=== PATIENT | female | born 1940 | race Caucasian/White ===

== ENCOUNTER 2024-05-10 08:19 | Outpatient (AMB) | payer MEDICARE, MEDICAID, SELFPAY ==
--- OUTSIDE RECORDS SUMMARY | 2024-05-10 08:29 | XMS_ITS | Encounter Summary ---
Author Organization [facility] Address [address] [place] [address] Care Team Providers Care Fixed Wing Aircraft Flight Engineer Name Role Phone Vale Walls Primary Care Provider [phone] Reason for Referral * Consultation (Routine) - Authorized Specialty Diagnoses / Procedures Referred By Contac t Referred To Contact Orthopaedic Surgery Diagnoses Radiculopathy of lumbar region Holli Fenton PA [address] [place] [address] Phone: tel: fax: Piero Hilton MD [address] [place] [phone] Phone: tel: fax: Referral ID Status Reason Start Date Expiration Date V isits Requested Visits Authorized [id number] Authorized 04/12/2024 10/12/2025 6 6 Encounter Details Date Type Department Care Team (Late st Contact Info) Description 04/12/2024 Orders Only [facility] [address] [place] [phone] Holli Fenton PA [address] [place] [phone] Radiculopathy of lumbar region (Primary Dx) Social History Tobacco Use Types Packs/Day Years Used Date Smoking Tobacco: Never Smokeless Tobacco: Never Alcohol Use Standard Drinks/Week Comments No 0 (1 standard drink = 0.6 oz pur e alcohol) Comments No Sex and Gender Information Value Date Recorded Sex Assigned at Female 03/09/2024 12:22 PM EST Legal Sex Female 9:48 AM EDT Gender Identity Not on file Sexual Orientation Not on file documented as of this encounter Progress Notes * GONZÁLEZ Jaramillo - 04/12/2024 4:21 PM EST Called patient to let her know that Dr. Hilton agreed to move forward with a caudal epidural steroid injection. She did not answer and was unable to leave voicemail as inbox was full. Did place order tomove forward with the injection. documented in this encounter Plan of Treatment Upcoming Encounters Date Type Department Care Team ([facility] st Contact Info) Description 05/17/2024 11:00 AM EST Office Visit [facility] [address] [place] [phone] Nurse Executive: Marcia Orlando MD [address] [place] [phone] Yesica Mi PA [address] [place] [phone] 07/11/2024 3:20 PM EDT Follow-Up [facility] A [address] [place] [phone] Piero Hilton MD [address] [place] [phone] Scheduled Referrals Name Type Priority Associated Diagnoses Order Schedule Ambulatory referral to Pain Management Outpatient Referral Routine Radiculopathy of lumbar region Expected: 04/12/2024, Expires: 10/10/2024 documented as of this encounter Visit Diagnoses Diagnosis Radiculopathy of lumbar region- Primary documented in this encounter Care Teams Fixed Wing Aircraft Flight Engineer Relationship Specialty Start Date End Date Vale Walls [address] [place] [phone] PCP - General Nurse Practitioner 03/08/24 documented as of this encounter
--- OUTSIDE RECORDS SUMMARY | 2024-05-10 08:29 | XMS_ITS | Encounter Summary ---
Author Organization [facility] Address [address] [place] [address] Care Team Providers Care Ad Clerk Name Role Phone Vale Walls Primary Care Provider [phone] Encounter Details Date Type Department Care Team (Latest Contact Info) Description 04/22/2024 8:07 AM EST - 04/22/2024 11:59 PM [facility] Hospital Encounter [facility] [address] [place] [address] Piero Hilton MD [address] [place] [address] Pain Discharge Disposition: Home or Self Care () Social History Tobacco Use Types Packs/Day Years [...] on file documented as of this encounter Medications at Time of Discharge acetaminophen (TYLENOL) 500 mg tablet Take 500 mg by mouth every 6 hours as needed for pain. losartan (COZAAR) 50 mg tablet Take 50 mg by mouth once a day. naproxen (NAPROSYN) 500 mg tablet Take 500 mg by mouth 2 times a day with meals. QUEtiapine (SEROquel) 50 mg tablet Take 50 mg by mouth nightly. verapamil (CALAN) 80 mg tablet Take 80 mg by mouth daily. 11 07/07/2017 oxyCODONE (OXY-IR) 5 mg capsule Take 1 capsule (5 mg total) by mouth every 8 hours as needed for pain for up to 5 days. Max Daily Amount: 15 mg 15 capsule 04/19/2024 04/24/2024 documented as of this encounter Plan of Treatment Upcoming Encounters Date Type Department Care Team (Late st Contact Info) Description 05/17/2024 11:00 AM EST Office Visit [facility] [address] [place] [address] [phone] Box Loader: Marcia Orlando MD [address] [place] [address] [phone] Yesica Mi PA [address] [place] [address] [phone] 07/11/2024 3:20 PM EDT Follow-Up [facility] A [address] [place] [phone] Piero Hilton MD [address] [place] [address] [phone] documented as of this encounter Procedures * Due to [place] [employer] law, this organization might not be sharing negative HIV tests. Procedure Name Priority Date/Time Associated Diagnosis Comments FL C-ARM INJECTION NON-REPORTABLE Routine 04/22/2024 12:19 PM EST Pain documented in this encounter Results * Due to [place] [employer] law, this organization might not be sharing negative HIV tests. * [place] C-Arm Injection Spine NONREPORTABLE (04/22/2024 12:19 PM EST) Narrative IMAGING - 04/22/2024 12:19 PM EST This procedure does not contain a result. Please see the surgeon's note for official report. us Piero Hilton MD IMG FLUOROSCOPY PROCEDURES Final Result IMAGING documented in this encounter Visit Diagnoses Diagnosis Pain Generalized pain documented in this encounter Care Teams Ad Clerk Relationship Specialty Start Date End Date Vale Walls [address] [place] [address] PCP - General Nurse Practitioner 03/08/24 documented as of this encounter
--- OUTSIDE RECORDS SUMMARY | 2024-05-10 08:29 | XMS_ITS | Encounter Summary ---
Author Organization [facility] Address [address] [place] [address] Care Team Providers Care In Store Demonstrator Name Role Phone Vale Walls Primary Care Provider Reason for Visit * Reason Comments Injections * Consultation (Routine) - Authorized Specialty Diagnoses / Procedures Referred By Contdavid t Referred To Contact Orthopaedic Surgery Diagnoses Radiculopathy of lumbar region Holli Fenton PA [address] [place] [phone] Phone: tel: fax: Piero Hilton MD [address] [place] [phone] Phone: tel: fax: Referral ID Status Reason Start Date Expiration Date V isits Requested Visits Authorized [id number] Authorized 04/12/2024 10/12/2025 6 6 Encounter Details Date Type Department Care Team (Latest Contact Info) Description 04/22/2024 8:07 AM EST - 04/22/2024 11:59 PM [facility] Hospital Encounter [facility] [address] [place] [phone] Piero Hilton MD [address] [place] [phone] Radiculopathy of lumbar region (Primary Dx) Discharge Disposition: Home or Self Care (01) Social History Tobacco Use Types Packs/Day Years [...] on file documented as of this encounter Last Filed Vital Signs Vital Sign Reading Time Taken Comments Blood Pressure 136/83 04/22/2024 9:00 AM EST Pulse 78 04/22/2024 9:00 AM EST Temperature 36.4 ??C (97.5 ??F) 04/22/2024 8:32 AM ES T Respiratory Rate - - Oxygen Saturation 97% 04/22/2024 9:00 AM EST Inhaled Oxygen Concentration - - Weight - - Height - - Body Mass Index - - documented in this encounter Discharge Instructions * Patient Instructions* Anahi Hinojosa LPN - 04/22/2024 8:16 AM EST Today's procedure is Epidural Steroid Injection Though this procedure is generally safe and complications are rare, we do ask you to look for any of the following: Swelling, persistent redness and bleeding or discharge from the site of injection. Fever and chills. New onset of severe back and/or neck pain. New onset of upper or lower extremity numbness and/or weakness lasting longer than 24 hours. Difficulty controlling bowel and/or bladder function after the injection. If you experience any of the above please contact our staff at the number provided below during business hours. After 4:00 PM, weekends, and holidays, please go to your local Emergency Room and show them this instruction sheet. After your injection: No driving or operating heavy equipment for 24 hours after the injection. Rest for the remainder of the day (unless otherwise specified). Remove band aid(s) after 24 hours, they do not need to be replaced. No shower, bath, Jacuzzi, or pool for 24 hours. Use ice for discomfort at the injection site(s). (20 minutes every 3 hours as needed) You may experience increasing pain after injection, maybe even days after. This is a normal experience. When applying ice/heat pack ALWAYS use a cloth barrier between your skin and the ice/heat pack If a steroid was used it will take 2-14 days or a bit longer to take full effect. You may experience hot flashes or facial flushing. This is not an allergic reaction. If you are diabetic and a steroid was used expect your blood sugar to elevate for up to 2 weeks. Contact the doctor that manages your diabetes for any further instruction if needed. Dr. Hilton During Business Hours 8am-4pm Scheduling concerns - [phone] Clinical concerns - [phone] After normal business hours - If you feel that you need to be evaluated for clinical symptoms, go to nearest Urgent Care or Emergency Room. documented in this encounter Medications at Time of Discharge [...] 04/19/2024 04/24/2024 documented as of this encounter Progress Notes * Piero Hilton MD - 04/22/2024 11:07 AM ESTAssociated Order(s): Epidural Spine Inj Post-Procedure Diagnose(s): Radiculopathy of lumbar region Lumbar Epidural Steroid Injection Epidural Spine Inj Indication(s): Lumbar Radiculopathy Date/Time: 04/22/2024 8:30 AM Performed by: Piero Hilton MD Authorized by: Piero Hilton MD Consent: Patient identity confirmed: Name and with patient, Name and MRN on the patient's armband and Verbally Verbal consent obtained: Yes Written consent obtained: Yes Risk and benefits discussed: Yes Written informed consent was obtained from the patient. Patient states understanding of procedure being performed: Yes Patient's understanding of procedure matches consent: Yes [facility] Protocol: Procedure consent matches procedure scheduled: Yes All relevant documents/tests are correctly identified, labeled, and matched to patient: Yes Relevant tests/ Imaging studies available/reviewed: Yes Correct site marked: Yes Required blood products, implants, devices and special equipment available: Yes Immediately prior to the procedure a time out was called: Yes An attending physician was present for the procedure OR the procedure was performed by an Advanced Practice Provider: Yes The patient was admitted as an outpatient to the ambulatory injection suite at [facility]. Vital signs were monitored before and after the procedure. Patient laid on the fluoroscopy table in the prone position. An attending physician was present for the procedure OR the procedure was performed by an Advanced Practice Provider: Yes Procedure Details: Guidance: fluoroscopy Injection Medications: 5 mL lidocaine PF 1% (10 mg/mL); 80 mg methylPREDNISolone acetate 80 mg/mL; 1 mL iohexoL 300 mg iodine/mL; 1 mL 0.9% NaCl 0.9%; 5 mL lidocaine 2% (20 mg/mL) Patient ID Patient Name: Carlene Rose : 1940 DOS: 04/22/24 Assessment Lumbar Radiculopathy Surgeon Attending Surgeon: Piero Hilton MD Procedures NAME OF PROCEDURE: Caudal Epidural Steroid Injection under Fluoroscopy, with passage of radiopaque epidural catheter. PRE-PROCEDURE DIAGNOSES: Low Back Pain POST-PROCEDURE DIAGNOSES: Same as above INDICATION FOR PROCEDURE: Same as above INFORMED CONSTENT: After reviewing the procedure with the patient, informed consent to proceed withthe injection was obtained. A procedural permit was also signed. DESCRIPTION OF PROCEDURE: In the prone position, fluoroscopy was used to identify the approximate area of the sacral hiatus. This was also determined by physical examination and palpation of the sacral cornu, bilaterally. The area surrounding the sacral hiatus was prepped with Chlorhexidine solution and draped with a sterile drape (prep and drape materials from the epidural kit). Sterile technique was used throughout. The skin and subcutaneous tissues overlying the sacral hiatus were infiltrated with 1% lidocaine. A 17-gauge Tuohy needle was advanced through the sacral hiatus into the caudal spinal canal. Placement of the epidural needle in the spinal canal was confirmed with AP and lateral fluoroscopic images. A radiopaque epidural catheter (TheraCath, Arrow) was advanced through the epidural needle and, with intermittent fluoroscopic imaging, was brought to the L5/S1 level to the midline. Omnipaque 300 X 1 ml was injected, resulting in distribution of contrast in the epidural space from S1 to L5. 1cc Methylprednisolone, 80 mg, 2 cc 2% lidocaine, (total volume 3 ml.) were injected through the epidural catheter. The injected local anesthetic and steroid resulted in dispersion of the previously injected contrast. The procedure was well tolerated, and there were no apparent complications. The patient had moderate relief of pain from the injected local anesthetic. Dr. Hilton was present for, and participated in, the entire procedure. DISPOSITION: Patient was discharged home instable condition. The patient tolerated the procedure well with no immediate complications. Dressinx4 sterile gauze Post-procedure Details: The patient was observed in the ambulatory surgery department. Instructions: post-procedure instructions were reviewed The patient discharged from clinic in stable condition. Carlene Rose : 1940 CSN: [id number] documented in this encounter Plan of Treatment Upcoming Encounters Date Type Department Care Team (Late st Contact Info) Description 05/17/2024 11:00 AM EST Office Visit [facility] [address] [place] [phone] Build Engineer: Marcia Orlando MD [address] [place] [phone] Yesica Mi PA [address] [place] [phone] 07/11/2024 3:20 PM EDT Follow-Up [facility] A [address] [place] [address] Piero Hilton MD [address] [place] [phone] documented as of this encounter Procedures * Due to [place] state law, this organization might not be sharing negative HIV tests. Procedure Name Priority Date/Time Associated Diagnosis Comments [place] NJX DX/THER SBST INTRLMNR LMBR/SAC W/IMG GDN Routine 04/22/2024 8:30 AM EST Radiculopathy of lumbar region documented in this encounter Results * Due to [place] state law, this organization might not be sharing negative HIV tests. * [place] NJX DX/THER SBST INTRLMNR LMBR/SAC W/IMG GDN (04/22/2024 8:30 AM EST) Narrative Piero Hilton MD - 04/22/2024 8:30 AM EST Piero Hilton MD ? 04/22/2024 11:12 AM Lumbar Epidural Steroid Injection Epidural Spine Inj ? Indication(s): Lumbar Radiculopathy ? Date/Time: 04/22/2024 8:30 AM ? Performed by: Piero Hilton MD ? Authorized by: Piero Hilton MD Consent: ? Patient identity confirmed: Name and with patient, Name and MRN on the patient's armband and Verbally ? Verbal consent obtained: Yes ? Written consent obtained: Yes ? Risk and benefits discussed: Yes ? Written informed consent was obtained from the patient. ? Patient states understanding of procedure being performed: Yes ? Patient's understanding of procedure matches consent: Yes [facility] Protocol: ? Procedure consent matches procedure scheduled: Yes ? All relevant documents/tests are correctly identified, labeled, and matched to patient: Yes ? Relevant tests/ Imaging studies available/reviewed: Yes ? Correct site marked: Yes ? Required blood products, implants, devices and special equipment available: Yes ? Immediately prior to the procedure a time out was called: Yes An attending physician was present for the procedure OR the procedure was performed by an Advanced Practice Provider: Yes ? The patient was admitted as an outpatient to the ambulatory injection suite at [facility]. ? Vital signs were monitored before and after the procedure. ? Patient laid on the fluoroscopy table in the prone position. An attending physician was present for the procedure OR the procedure was performed by an Advanced Practice Provider: Yes Procedure Details: ? Guidance: fluoroscopy Injection ?Medications: 5 mL lidocaine PF 1% (10 mg/mL); 80 mg methylPREDNISolone acetate 80 mg/mL; 1 mL iohexoL 300 mg iodine/mL; 1 mL 0.9% NaCl 0.9%; 5 mL lidocaine 2% (20 mg/mL) ? Patient ID Patient Name: Carlene Rose : 1940 DOS: 04/22/24 Assessment Lumbar Radiculopathy Surgeon Attending Surgeon: Piero Hilton MD Procedures NAME OF PROCEDURE: Caudal Epidural Steroid Injection under Fluoroscopy, with passage of radiopaque epidural catheter. PRE-PROCEDURE DIAGNOSES: ??Low Back Pain POST-PROCEDURE DIAGNOSES: Same as above INDICATION FOR PROCEDURE: Same as above INFORMED CONSTENT: After reviewing the procedure with the patient, informed consent to proceed with the injection was obtained. ??A procedural permit was also signed. DESCRIPTION OF PROCEDURE: ??In the prone position, fluoroscopy was used to identify the approximate area of the sacral hiatus. ??This was also determined by physical examination and palpation of the sacral cornu, bilaterally. ??The area surrounding the sacral hiatus was prepped with Chlorhexidine solution and draped with a sterile drape (prep and drape materials from the epidural kit). ??Sterile technique was used throughout. The skin and subcutaneous tissues overlying the sacral hiatus were infiltrated with 1% lidocaine. ??A 17-gauge Tuohy needle was advanced through the sacral hiatus into the caudal spinal canal. ??Placement of the epidural needle in the spinal canal was confirmed with AP and lateral fluoroscopic images. ??A radiopaque epidural catheter (NoeaCath, Arrow) was advanced through the epidural needle and, with intermittent fluoroscopic imaging, was brought to the L5/S1 level to the midline. Omnipaque 300 X 1 ml was injected, resulting in distribution of contrast in the epidural space from S1 to L5. ??1cc Methylprednisolone, 80 mg, 2 cc 2% ??lidocaine, ??(total volume 3 ml.) were injected through the epidural catheter. The injected local anesthetic and steroid resulted in dispersion of the previously injected contrast. ?? The procedure was well tolerated, and there were no apparent complications. The patient had moderate relief of pain from the injected local anesthetic. Dr. Hilton was present for, and participated in, the entire procedure. DISPOSITION: ??Patient was discharged home instable condition. ? The patient tolerated the procedure well with no immediate complications. ? Dressinx4 sterile gauze Post-procedure Details: ? The patient was observed in the ambulatory surgery department. ? Instructions: post-procedure instructions were reviewed ? The patient discharged from clinic in stable condition. us Piero Hilton MD IN CLINIC/BEDSIDE ORDERABLES Fin al Result documented in this encounter Visit Diagnoses Diagnosis Radiculopathy of lumbar region- Primary documented in this encounter Administered Medications Inactive Administered Medications - up to 3 most recent administrations Medication Order MAR Action Action Date Dose Rate Site 0.9% NaCl injection 1 mL 1 mL, One-time injection, Starting on Mon04/22/24 at 0830, 1 dose, Until Mon04/22/24 at 0830Indications:Radiculopathy of lumbar region Given 04/22/2024 8:30 AM EST 1 mL iohexoL (OMNIPAQUE) 300 mg iodine/mL injection 1 mL 1 mL, One-time injection, Starting on Mon04/22/24 at 0830, 1 dose, Until Mon04/22/24 at 0830Indications:Radiculopathy of lumbar region Given 04/22/2024 8:30 AM EST 1 mL lidocaine (XYLOCAINE) 2% (20 mg/mL) injection 5 mL 5 mL, injection, One-time injection, Starting on Mon04/22/24 at 0830, 1 dose, Until Mon04/22/24 at 0830Indications:Radiculopathy of lumbar region Given 04/22/2024 8:30 AM EST 5 mL lidocaine PF (XYLOCAINE) 1% (10 mg/mL) injection 5 mL 5 mL, injection, One-time injection, Starting on Mon04/22/24 at 0830, 1 dose, Until Mon04/22/24 at 0830Indications:Radiculopathy of lumbar region Given 04/22/2024 8:30 AM EST 5 mL methylPREDNISolone acetate (DEPO-Medrol) injection 80 mg 80 mg, intra-articular, One-time injection, Starting on Mon04/22/24 at 0830, 1 dose, Until Mon04/22/24 at 0830Indications:Radiculopathy of lumbar region Given 04/22/2024 8:30 AM EST 80 mg documented in this encounter Care Teams In Store Demonstrator Relationship Specialty Start Date End Date Luis Ejustino Vale [address] [place] [address] PCP - General Nurse Practitioner 03/08/24 documented as of this encounter
--- OUTSIDE RECORDS SUMMARY | 2024-05-10 08:29 | XMS_ITS | Encounter Summary ---
Author Organization [facility] Address [address] [place] [address] Care Team Providers Care Kiln Pusher Name Role Phone Vale Walls Primary Care Provider [phone] Reason for Visit * Reason Comments Leg Pain Back Pain Abdominal Pain * Auth/Cert (Routine) Specialty Diagnoses / Procedures Referred By Contac t Referred To Contact Diagnoses Back pain at L4-L5 level Referral ID Status Reason Start Date Expiration Date Visits Re quested Visits Authorized [id number] Encounter Details Date Type Department Care Team (Late st Contact Info) Description 04/18/2024 5:23 PM EST - 04/19/2024 3:15 PM EST Emergency [facility] Emergency Department [address] [place] [id number] Fermin Hawkins MD [address] [place] [address] [place] [id number] Elvis Tran MD [address] [place] [id number] Patsy Merchant MD [address] [place] [id number] Back pain at L4-L5 level (Primary Dx); Urinary tract infection without hematuria, site unspecified; Acute left-sided low back pain with left-sided sciatica; Impaired mobility Discharge Disposition: Home with Services (06) Social History Tobacco Use Types Packs/Day Years [...] Sign Reading Time Taken Comments Blood Pressure 136/59 04/19/2024 11:25 AM EST Pulse 60 04/19/2024 11:24 AM EST Temperature 36.7 ??C (98 ??F) 04/19/2024 11:24 AM EST Respiratory Rate 18 04/19/2024 11:24 AM EST Oxygen Saturation 98% 04/19/2024 7:48 AM EST Inhaled Oxygen Concentration - - Weight - - Height - - Body Mass Index - - documented in this encounter Discharge Summaries * Patsy Merchant MD - 04/19/2024 2:31 PM EST Images from the original note were not included. DISCHARGE SUMMARY [facility] DISCHARGE INFORMATION: Date and Time of Admission: 04/19/2024 12:08 AM Date of Discharge: 04/19/24 DISCHARGE DIAGNOSIS: Problem List Active Problems * (Principal) Back pain at L4-L5 level Back pain with radiculopathy Hypertension Impaired mobility Insomnia Mood disorder (HCC) Neuroforaminal stenosis of lumbar spine Resolved Problems RESOLVED: Abnormal urinalysis ATTENDING PHYSICIAN ON DISCHARGE: Attending Provider: Elvis Tran MD [phone] FOLLOW-UPS AND SCHEDULED APPOINTMENTS: Future Appointments Date Time Provider Department Center 04/22/2024 8:30 AM [facility] 04/22/2024 8:30 AM Piero Hilton MD [facility] [place] [place] 05/17/2024 11:00 AM [facility] DANIELA AR CONTACT INFORMATION FOR FOLLOW-UP Care [facility] ([facility]) Specialty: Home Health Services [address] [place] [address] Next Steps: Follow up Vale Walls Specialty: Nurse Practitioner Relationship: PCP - General [facility] [address] [facility] [address] Next Steps: Call in 3 day(s) Instructions: Follow-up after discharge PENDING LABS: . None DISCHARGE MEDICATIONS: Discharge Medication list: Discharge Medications Modified Medications Sig Disp Refill oxyCODONE 5 mg capsule Commonly known as: OXY-IR What changed: when to take this Take 1 capsule (5 mg total) by mouth every 8 hours as needed for pain for up to 5 days. Max Daily Amount: 15 mg 15 capsule 0 Medications To Continue Sig Disp Refill acetaminophen 500 mg tablet Commonly known as: TYLENOL Take 500 mg by mouth every 6 hours as needed for pain. 0 losartan 50 mg tablet Commonly known as: COZAAR Take 50 mg by mouth once a day. 0 naproxen 500 mg tablet Commonly known as: NAPROSYN Take 500 mg by mouth 2 times a day with meals. 0 QUEtiapine 50 mg tablet Commonly known as: SEROquel Take 50 mg by mouth nightly. 0 verapamiL 80 mg tablet Commonly known as: CALAN Take 80 mg by mouth daily. 11 ALLERGIES: Patient has no known allergies. IMMUNIZATION HISTORY: Most Recent Immunizations Administered Date(s) Administered COVID-19, Moderna, mRNA, LNP-S, Bivalent Booster, PF 01/10/2022 Covid-19 Monovalent Vaccine, Moderna, mRNA, PF 02/15/2021 Covid-19, Moderna, mRNA, Vaccine, PF, 50 mcg/0.5 mL (for age 12 y and up) 01/28/2024 Covid-19, Pfizer, mRNA, Tonny-sucrose Vaccine, PF, 30 mcg/0.3 mL (for age 12 y and up) 12/24/2022 PRESENTATION INFORMATION: HISTORY OF PRESENT ILLNESS: CHIEF COMPLAINT: acute on chronic back pain HISTORY OF PRESENT ILLNESS: History obtained from: Patient and Medical Record Carlene Rose is a 83 y.o. female with past medical history significant for history of mood disorder with mixed anxiety and depression, prior history of seizures not on medication, stage II CKD, vitamin B12 deficiency, chronic low back pain with prior surgery for herniated disc, vitamin D deficiency, insomnia, and hypertension who presents with acute on chronic worsening of lower back pain associate with left lower extremity sciatica symptoms and inability to walk secondary to pain. Patient reports that she has had chronic back pain for which she is followed by spine surgery outpatient. She notes that it worsened in the past 24 to 48 hours prompting her to come in for evaluation. The pain is sharp and extends from her hip all the way down to her leg. It feels as though she is being constantly stabbed with knives. She notes that it limits her ability to walk. She reports chronic headache and bilateral lower extremity foot numbness. Patient denies any bowel/bladder incontinence/saddle anesthesia. Otherwise denies fever/chills, decreased appetite, changes in vision/hearing, chest pain, shortnessof breath, abdominal pain, nausea/vomiting, constipation/diarrhea, hematuria or melena, dysuria. Of note patient is followed by [facility] of orthopedic surgery in the outpatient setting. She had recent MRI L-spine(04/03/2024) notable for diffuse degenerative changes and neuroforaminal stenosis for which she is scheduled to undergo lumbar epidural steroid injection on 04/22/2024. Patient was evaluated by orthospine who recommended weightbearing as tolerated and upright lumbar spine x-ray. In the ED, patient has been hemodynamically stable. BMP notable for bicarb 19 otherwise unremarkable. LFTs notable for alkaline phosphatase 181 otherwise unremarkable. CBC unremarkable. UA shows 10 white blood cells per high-powered field and rare bacteria. Patient reports no dysuria. CT abdomen pelvis shows no acute abnormality. CT reconstruction of lumbar spine shows no acute abnormality. In the ED patient received IV ceftriaxone 1 g x 1, gabapentin 100 mg x 1, Toradol 15 mg x 1, oxycodone IR 5 mg x 1. Admitted to medicine for further management and evaluation. PAST MEDICAL HISTORY: Past Medical History: Diagnosis Date Hypertension PAST SURGICAL HISTORY: Past Surgical History: Procedure Laterality Date CO EXCIS CERV DISK,ONE LEVEL N/A History of Laminectomy With Disc Removal CO TOTAL ABDOM HYSTERECTOMY N/A History of Hysterectomy PAST FAMILY HISTORY: No family history on file. PAST SOCIAL HISTORY: Social History Socioeconomic History Marital status: Spouse name: Not on file Number of children: Not on file Years of education: Not on file Highest education level: Not on file Occupational History Not on file Tobacco Use Smoking status: Never Smokeless tobacco: Never Vaping Use Vaping status: Never Used Substance and Sexual Activity Alcohol use: No Drug use: No Sexual activity: Not on file Other Topics Concern Not on file Social History Narrative Not on file HOSPITAL COURSE: Patient presented with acute on chronic lower back pain, unable to ambulate. Patient had x-ray and CT of lumbar spine, CT A/P, no acute findings. Patient was seen by orthospine, no urgent invention recommended, patient has epidural steroid injection scheduled on 04/22. Patient was provided with low-dose oxycodone as needed for pain control. Patient was seen by PT, recommend to DC home with walker. Patient is hemodynamic stable to discharge home. Back pain at L4-L5 level 83-year-old female with a history of chronic low back pain and prior surgery for a herniated disc. She presents with an acute exacerbation of her chronic back pain, characterized by sharp pain radiating from the left hip down to the leg, consistent with sciatica. Recent MRI of the lumbar spine showed diffuse degenerative changes and neuroforaminal stenosis, for which she is scheduled to receive alumbar epidural steroid injection. Examination reveals tenderness in the left hip and pain with passive leg raising. CT of the lumbar spine shows no acute abnormalities. Evaluated in the ED by orthospine who are not concerned for cauda equina syndrome. They recommended outpatient lumbar corticosteroid injection on April 22. - Orthospine consulted - Given Oxy IR 2.5 or 5 mg every 6 hours as needed pain - Tylenol 650 mg scheduled - Consider initiation of gabapentin - Follow-up with orthospine outpatient - Lumbar spine x-ray upright done. Mood disorder (HCC) Prior history of mood disorder complicated by insomnia managed on Seroquel 50 mg nightly. - Continue Seroquel 50 mg nightly Neuroforaminal stenosis of lumbar spine -See back pain at L4/L5. Hypertension Patient with history of hypertension managed on losartan 50 mg daily and verapamil 80 mg daily. Blood pressure stable - Continue home verapamil 80 mg daily and losartan 50 mg daily. Impaired mobility Patient presents with impaired mobility secondary to back pain. - Appreciated PT recs cleared for D/C home with family assist. Rec' RW for discharge. Insomnia -See mood disorder section Abnormal urinalysis Patient's UA shows 10 white blood cells per high-powered field, 1+ leukocyte esterase, rare bacteria. Patient denies any dysuria. No concern for UTI at this time. CT abdomen pelvis showed no evidenceof cystitis or pyelonephritis. Patient received IV ceftriaxone 1 g in the ED x1. - Discontinued antibiotics at admission - Outpatient follow-up with PCP if symptomatic. DISCHARGE DAY INFORMATION: DISCHARGE PHYSICAL EXAM: Vital signs: Blood pressure 136/59, pulse 60, temperature 36.7 ??C (98 ??F), temperature source Oral, resp. rate 18, SpO2 98%. General appearance: In no acute distress, alert and awake, cooperative HEENT: Normocephalic, atraumatic, Pupils are equal, round and react to light, Nonicteric, Hearing grossly normal, Mucous membranes moist Neck: Supple and Full Range of Motion Back: No tenderness to palpation, normal inspection Lungs: No respiratory distress, no stridor, clear breath sounds bilaterally, no wheeze, rales or rhonchi Heart: S1, S2, regular, no murmur, no gallops. no chest wall tenderness Abdomen: Soft, active bowel sounds, non-tender, non-distended, no rebound or guarding Extremities: Normal range of motion, no leg edema Skin: No rash or ulcers Neurologic: Alert and oriented x 3, CN II - XII grossly intact, no facial droop, Motor 5/5, Sensation grossly normal. LAB AND RADIOLOGY: LABS: Pertinent labs include Recent Results (from the past 24 hours) Urinalysis W/Reflex to Microscopic & Culture Collection Time: 04/18/24 6:43 PM Specimen: Clean Catch; Urine Result Value Ref Range Color, Urine Yellow Colorless, Light Yellow, Yellow, Dark Yellow Clarity, Urine Slightly Cloudy (A) Clear Specific [place], Urine 1.025 1.005 - 1.030 pH, Urine 5.0 4.6 - 8.0 Protein, Urine Negative Negative Glucose, Urine Negative Negative Ketones, Urine Negative Negative Bilirubin, Urine Negative Negative Blood, Urine Negative Negative Nitrite, Urine Negative Negative Urobilinogen, Urine Positive (A) Normal Leukocyte Esterase, Urine 1+ (A) Negative WBC, Urine 10 (H) 0 - 2 /HPF RBC, Urine 2 0 - 2 /HPF Hyaline Casts, Urine 2 0 - 2 /LPF Squamous Epithelial Cells, Urine 4 /HPF Bacteria, Urine Rare (A) None /HPF /HPF Mucus, Urine Rare /LPF Soliman Top, Urine Collection Time: 04/18/24 6:43 PM Specimen: Clean Catch; Urine Result Value Ref Range Extra Tube Hold for add-ons. IMAGING: Pertinent Imaging results include X-Ray Lumbar Spine 2 or 3 Views Result Date: 04/19/2024 The bones are diffusely demineralized. Unchanged dextroconvex scoliosis of the lumbar spine and advanced multilevel degenerative changes as characterized on prior MRI. Unchanged degenerative grade 1 anterolisthesis at L4-L5. Chronic compression deformity of the L1 vertebral body. Unchanged subacutesacral insufficiency fractures. If this radiology report contains a blank impression section, it is an incomplete radiology report. Please contact the interpreting radiologist or applicable radiology division as soon as possible to obtain the completed interpretation. Workstation ID: [id number] CT Abd Pelvis W Contrast, CT Reconstruction of Lumbar Spine Result Date: 04/18/2024 No acute abnormality. If this radiology report contains a blank impression section, it is an incomplete radiology report. Please contact the interpreting radiologist or applicable radiology division as soon as possible to obtain the completed interpretation. Workstation ID: [id number] Up-to-date CT equipment and radiation dose reduction techniques were employed. CTDIvol: 14.7 mGy. DLP: 672 mGy-cm. The following accession numbers are related to this dose report [id number]: [id number] Up-to-date CT equipment and radiation dose reduction techniques were employed. CTDIvol: 14.7 mGy. DLP: 672 mGy-cm.The following accession numbers are related to this dose report [id number]: [id number] GLOBAL PLAN OF CARE CONSULTS: IP CONSULT TO IV THERAPY NURSE PROCEDURES: CONDITION: Good ADVANCED CARE PLANNING Code Status: Full Code Medical Decision Maker: patient I spent 50 minutes performing discharge day services (e.g. examination, discussion of hospital course, follow up care and planning) as appropriate I saw and evaluated the patient on the date of discharge. I have reviewed, updated, and verified this note's content Signature: Patsy Merchant MD Electronic Signature documented in this encounter Discharge Instructions * Discharge Instructions* Patsy Merchant MD - 04/18/2024 7:10 PM EST - Continue home medications same as before - Continue [id number] analgesics like Tylenol or ibuprofen, continue oxycodone as needed for pain control - Fall precaution. Please ambulate with walker as instructed by PT - Follow-up with your PCP in 3 to 5 days - Follow-up with the spine center for epidural steroid injection on 04/22 * Discharge Instr - Diet* Patsy Merchant MD - 04/19/2024 1:35 PM EST Regular Diet documented in this encounter Medications at Time [...] 04/19/2024 04/24/2024 documented as of this encounter H&P Notes * Elvis Tran MD - 04/19/2024 4:13 AM EST History and Physical CHIEF COMPLAINT: acute on chronic back pain HISTORY OF PRESENT ILLNESS: History obtained from: Patient and Medical Record Carlene Rose is a 83 y.o. female with past medical history significant for history of mood disorder with mixed anxiety and depression, prior history of seizures not on medication, stage II CKD, vitamin B12 deficiency, chronic low back pain with prior surgery for herniated disc, vitamin D deficiency, insomnia, and hypertension who presents with acute on chronic worsening of lower back pain associate with left lower extremity sciatica symptoms and inability to walk secondary to pain. Patient reports that she has had chronic back pain for which she is followed by spine surgery outpatient. She notes that it worsened in the past 24 to 48 hours prompting her to come in for evaluation. The pain is sharp and extends from her hip all the way down to her leg. It feels as though she is being constantly stabbed with knives. She notes that it limits her ability to walk. She reports chronic headache and bilateral lower extremity foot numbness. Patient denies any bowel/bladder incontinence/saddle anesthesia. Otherwise denies fever/chills, decreased appetite, changes in vision/hearing, chest pain, shortnessof breath, abdominal pain, nausea/vomiting, constipation/diarrhea, hematuria or melena, dysuria. Of note patient is followed by [facility] Jaram[facility] of orthopedic surgery in the outpatient setting. She had recent MRI L-spine(04/03/2024) notable for diffuse degenerative changes and neuroforaminal stenosis for which she is scheduled to undergo lumbar epidural steroid injection on 04/22/2024. Patient was evaluated by orthospine who recommended weightbearing as tolerated and upright lumbar spine x-ray. In the ED, patient has been hemodynamically stable. BMP notable for bicarb 19 otherwise unremarkable. LFTs notable for alkaline phosphatase 181 otherwise unremarkable. CBC unremarkable. UA shows 10 white blood cells per high-powered field and rare bacteria. Patient reports no dysuria. CT abdomen pelvis shows no acute abnormality. CT reconstruction of lumbar spine shows no acute abnormality. In the ED patient received IV ceftriaxone 1 g x 1, gabapentin 100 mg x 1, Toradol 15 mg x 1, oxycodone IR 5 mg x 1. Admitted to medicine for further management and evaluation. Subjective 10 point ROS negative unless indicated above Past Medical History: Hypertension Past Surgical History: CO EXCIS CERV DISK,ONE LEVEL; N/A CO TOTAL ABDOM HYSTERECTOMY; N/A Home Medications: acetaminophen (TYLENOL) 500 mg tablet, Take 500 mg by mouth every 6 hours as needed for pain. losartan (COZAAR) 50 mg tablet, Take 50 mg by mouth once a day. naproxen (NAPROSYN) 500 mg tablet, Take 500 mg by mouth 2 times a day with meals. oxyCODONE (OXY-IR) 5 mg capsule, Take 5 mg by mouth every 6 hours as needed for pain. QUEtiapine (SEROquel) 50 mg tablet, Take 50 mg by mouth nightly. verapamil (CALAN) 80 mg tablet, Take 80 mg by mouth daily. Allergies: No Known Allergies Social History: Tobacco Use Smoking status: Never Smokeless tobacco: Never Vaping Use Vaping status: Never Used Substance Use Topics Alcohol use: No Drug use: No Family History: History reviewed. No pertinent family history. Objective Temp: [36.2 ??C (97.2 ??F)] 36.2 ??C (97.2 ??F) Heart Rate: [77-90] 86 Resp: [17-20] 17 BP: (128-181)/(60-88) 147/68 SpO2: [96 %-100 %] 96 % . Active Lines Name Placement date Placement time Site Days Peripheral IV 04/18/24 Left Antecubital 04/18/241903 Antecubital less than 1 , Active Drains None , Active Airways None VENT SETTINGS (LAST 12 HOURS): Physical Exam Vitals reviewed. Constitutional: General: She is not in acute distress. Appearance: Normal appearance. She is not ill-appearing or diaphoretic. HENT: Head: Normocephalic and atraumatic. Nose: Nose normal. Mouth/Throat: Mouth: Mucous membranes are moist. Pharynx: Oropharynx is clear. No oropharyngeal exudate. Eyes: General: No scleral icterus. Extraocular Movements: Extraocular movements intact. Conjunctiva/sclera: Conjunctivae normal. Pupils: Pupils are equal, round, and reactive to light. Cardiovascular: Rate and Rhythm: Normal rate and regular rhythm. Pulses: Normal pulses. Heart sounds: Normal heart sounds. No murmur heard. No friction rub. No gallop. Pulmonary: Effort: Pulmonary effort is normal. No respiratory distress. Breath sounds: Normal breath sounds. No stridor. No wheezing, rhonchi or rales. Abdominal: General: Abdomen is flat. There is no distension. Palpations: Abdomen is soft. There is no mass. Tenderness: There is no abdominal tenderness. There is no guarding. Hernia: No hernia is present. Musculoskeletal: General: Tenderness (Left hip.) present. No swelling or deformity. Normal range of motion. Cervical back: Normal range of motion and neck supple. No tenderness. Right lower leg: No edema. Left lower leg: No edema. Comments: Pain with passive leg raising of left leg; not elicited by right leg raise. Lymphadenopathy: Cervical: No cervical adenopathy. Skin: General: Skin is warm and dry. Capillary Refill: Capillary refill takes less than 2 seconds. Findings: No rash. Neurological: General: No focal deficit present. Mental Status: She is alert and oriented to person, place, and time. Mental status is at baseline. Comments: Patient not lifting left leg secondary to pain. Psychiatric: Mood and Affect: Mood normal. Behavior: Behavior normal. Thought Content: Thought content normal. Result Review I have reviewed the patient's labs results from the last 24 hours. Recent Results (from the past 24 hours) CBC Auto Differential Collection Time: 04/18/24 12:18 PM Specimen: Venous, Peripheral; Blood Result Value Ref Range WBC 9.0 3.8 - 10.8 10*3/uL RBC 4.45 3.80 - 5.10 10*6/uL Hemoglobin 12.7 11.7 - 15.5 g/dL Hematocrit 38.4 35.0 - 45.0 % MCV 86.3 80.0 - 100.0 fL MCH 28.5 27.0 - 33.0 pg MCHC 33.1 32.0 - 36.0 g/dL RDW 14.0 11.0 - 15.0 % Platelets 219 140 - 400 10*3/uL MPV 8.9 7.5 - 12.5 fL Neutrophil % 69.1 % Immature Grans % 0.4 0.0 - 0.9 % Lymphocyte % 18.8 % Monocyte % 8.3 % Eosinophil % 2.8 % Basophil % 0.6 % Neutrophil # 6.21 1.50 - 7.80 10*3/uL Immature Grans # 0.04 (H) <=0.03 10*3/uL Lymphocyte # 1.70 0.85 - 3.90 10*3/uL Monocyte # 0.80 0.20 - 0.95 10*3/uL Eosinophil # 0.30 0.02 - 0.50 10*3/uL Basophil # 0.10 0.00 - 0.20 10*3/uL nRBC % 0.0 /100 WBCs nRBC # <0.01 <0.01 10*3/uL Comprehensive Metabolic Panel (If age > 70) Collection Time: 04/18/24 12:18 PM Specimen: Venous, Peripheral; Blood Result Value Ref Range NA 138 135 - 145 mmol/L K 4.2 3.5 - 5.3 mmol/L Cl 107 98 - 107 mmol/L CO2 19 (L) 22 - 32 mmol/L Anion Gap 12 5 - 15 Glucose 99 65 - 99 mg/dL Creatinine 0.89 0.50 - 1.20 mg/dL Calcium 9.3 8.6 - 10.5 mg/dL Total Protein 6.8 6.0 - 8.0 g/dL Albumin 3.8 3.5 - 5.2 g/dL Bilirubin, Total 0.5 0.2 - 1.2 mg/dL Alkaline Phosphatase 181 (H) 35 - 129 U/L AST 25 10 - 40 U/L ALT 9 (L) 10 - 40 U/L BUN 24 (H) 7 - 23 mg/dL eGFR 64 >=60 mL/min/1.73m2 Globulin, Total 3.0 2.1 - 4.2 g/dL A/G Ratio 1.3 (L) 1.5 - 3.0 Urinalysis W/Reflex to Microscopic & Culture Collection Time: 04/18/24 6:43 PM Specimen: Clean Catch; Urine Result Value Ref Range Color, Urine Yellow Colorless, Light Yellow, Yellow, Dark Yellow Clarity, Urine Slightly Cloudy (A) Clear Specific [place], Urine 1.025 1.005 - 1.030 pH, Urine 5.0 4.6 - 8.0 Protein, Urine Negative Negative Glucose, Urine Negative Negative Ketones, Urine Negative Negative Bilirubin, Urine Negative Negative Blood, Urine Negative Negative Nitrite, Urine Negative Negative Urobilinogen, Urine Positive (A) Normal Leukocyte Esterase, Urine 1+ (A) Negative WBC, Urine 10 (H) 0 - 2 /HPF RBC, Urine 2 0 - 2 /HPF Hyaline Casts, Urine 2 0 - 2 /LPF Squamous Epithelial Cells, Urine 4 /HPF Bacteria, Urine Rare (A) None /HPF /HPF Mucus, Urine Rare /LPF Soliman Top, Urine Collection Time: 04/18/24 6:43 PM Specimen: Clean Catch; Urine Result Value Ref Range Extra Tube Hold for add-ons. Imaging Results Radiology Review: I have personally reviewed the patient's imaging results. CT Abd Pelvis W Contrast, CT Reconstruction of Lumbar Spine Result Date: 04/18/2024 No acute abnormality. If this radiology report contains a blank impression section, it is an incomplete radiology report. Please contact the interpreting radiologist or applicable radiology division as soon as possible to obtain the completed interpretation. Workstation ID: [id number] Up-to-date CT equipment and radiation dose reduction techniques were employed. CTDIvol: 14.7 mGy. DLP: 672 mGy-cm. The following accession numbers are related to this dose report [id number]: [id number] Up-to-date CT equipment and radiation dose reduction techniques were employed. CTDIvol: 14.7 mGy. DLP: 672 mGy-cm.The following accession numbers are related to this dose report [id number]: [id number] ECG ECG: not available on admission Assessment & Plan Principal Problem: Back pain at L4-L5 level Active Problems: Hypertension Mood disorder (HCC) Neuroforaminal stenosis of lumbar spine Impaired mobility Insomnia Abnormal urinalysis Assessment & Plan Back pain at L4-L5 level 83-year-old female with a history of chronic low back pain and prior surgery for a herniated disc. She presents with an acute exacerbation of her chronic back pain, characterized by sharp pain radiating from the left hip down to the leg, consistent with sciatica. Recent MRI of the lumbar spine showed diffuse degenerative changes and neuroforaminal stenosis, for which she is scheduled to receive alumbar epidural steroid injection. Examination reveals tenderness in the left hip and pain with passive leg raising. CT of the lumbar spine shows no acute abnormalities. Evaluated in the ED by orthospine who are not concerned for cauda equina syndrome. They recommended outpatient lumbar corticosteroid injection on April 22. - Orthospine consulted - Oxy IR 2.5 or 5 mg every 6 hours as needed pain - IV Toradol 15 mg every 6 hours as needed pain - Tylenol 650 mg scheduled - Consider initiation of gabapentin - Follow-up with orthospine - Lumbar spine x-ray upright Mood disorder (HCC) Prior history of mood disorder complicated by insomnia managed on Seroquel 50 mg nightly. - Continue Seroquel 50 mg nightly Neuroforaminal stenosis of lumbar spine -See back pain at L4/L5. Hypertension Patient with history of hypertension managed on losartan 50 mg daily and verapamil 80 mg daily. - Continue home verapamil 80 mg daily and losartan 50 mg daily. Impaired mobility Patient presents with impaired mobility secondary to back pain. -PT consult prior to discharge Insomnia -See mood disorder section Abnormal urinalysis Patient's UA shows 10 white blood cells per high-powered field, 1+ leukocyte esterase, rare bacteria. Patient denies any dysuria. No concern for UTI at this time. CT abdomen pelvis showed no evidenceof cystitis or pyelonephritis. Patient received IV ceftriaxone 1 g in the ED. - Follow-up urine culture - Discontinue antibiotics GLOBAL PLAN OF CARE: FLUIDS AND NUTRITION FLUIDS: NUTRITION: Diet, Adult Full participation; Regular VTE PROPHYLAXIS Pharmacologic VTE Prophylaxis: subcutaneous lovenox 40mg daily Mechanical VTE/DVT Prophylaxis: SCDs ADV[facility]ARE PLANNING Code Status: Full Code Medical Decision Maker: Patient I have discussed the plan of care with: Patient. Med Reconciliation Status: Medication Reconciliation Status: COMPLETE: Medication reconciliation iscomplete in full using one or more reliable source(s). I have reviewed, updated, and verified this note's content. I spent a total of 60 minutes on the date of encounter, which included: ?? Preparing to see the patient (e.g., review of test results) ?? Obtaining and/or reviewing separately obtained history ?? Performing a medically appropriate exam and/or evaluation ?? Counseling and educating the patient/family/caregiver ?? Ordering medications, tests, procedures ?? Documenting clinical information in the health record Signature: Elvis Tran MD Electronic Signature documented in this encounter ED Notes * Fermin Hawkins MD - 04/18/2024 11:38 AM EST History HPI: Chief Complaint Patient presents with Leg Pain Back Pain Abdominal Pain HPI 83 female with history of chronic lower back pain, hypertension presents to the emergency department for evaluation of left lower back pain that radiates into her left lower extremity. Patient notes that she has had progressively worsening left lower extremity pain. However over the 1 week she has noted sharp, stabbing pain in her left groin that radiates down to her left foot. With intermittent n umbness/tingling in her left foot. Denies any acute trauma. No history of recent instrumentation. At home she takes Tylenol, ibuprofen, oxycodone for pain control however now is having difficulty with ambulation given amount of pain she is having therefore now presents to the emergency department further evaluation. She denies any fevers, chills, cough, congestion, chest pain, shortness of breath, nausea vomiting,diarrhea, dysuria, hematuria, urinary or bladder incontinence. No acute numbness or weakness. Patient History Past Medical History: Diagnosis Date Hypertension Past Surgical History: Procedure Laterality Date CO EXCIS CERV DISK,ONE LEVEL N/A History of Laminectomy With Disc Removal CO TOTAL ABDOM HYSTERECTOMY N/A History of Hysterectomy No family history on file. Social History Tobacco Use Smoking status: Never Smokeless tobacco: Never Vaping Use Vaping status: Never Used Substance Use Topics Alcohol use: No Drug use: No Vaping Questions Responses Vaping Use Never User Sexuality and Gender Identity Sexuality Legal Information Legal first name: Carlene Legal last name: Milton Legal sex: Female Gender Identity Patient's sex assigned at : Female Organ Inventory Organs the patient currently has: Organs present at or expected at to develop: Organs surgically enhanced or constructed: Organs hormonally enhanced or developed: breasts cervix ovaries uterus vagina penis prostate testes Review of Systems REVIEW OF SYSTEMS: Physical Exam Physical Exam ED Triage Vitals [04/18/24 1208] Temp Heart Rate Resp BP SpO2 36.2 ??C (97.2 ??F) 82 20 128/72 100 % Temp Source Heart Rate Source Patient Position BP Location Set FiO2 (O2%) Temporal Pulse Oximeter Sitting Left arm -- Physical Exam Vitals and nursing note reviewed. Constitutional: General: She is not in acute distress. Appearance: She is well-developed. She is not ill-appearing. HENT: Head: Normocephalic and atraumatic. Mouth/Throat: Mouth: Mucous membranes are moist. Eyes: Pupils: Pupils are equal, round, and reactive to light. Cardiovascular: Rate and Rhythm: Normal rate and regular rhythm. Heart sounds: Normal heart sounds. Pulmonary: Effort: Pulmonary effort is normal. Breath sounds: Normal breath sounds. Abdominal: Palpations: Abdomen is soft. Tenderness: There is no abdominal tenderness. Musculoskeletal: General: Normal range of motion. Cervical back: Normal range of motion and neck supple. Comments: No midline CTL spine tenderness. Tenderness to palpation of the left hip and proximal femur. Straight leg test positive on the left. No saddle anesthesia. 2+ knee jerk. DP pulses intact. Sensation to light touch is intact throughout. Patient has 5 out of 5 dorsi and plantarflexion and able to flex her and extend her knee. Patient unable to flex her left hip more than 20 degrees given significant left hip pain. Skin: General: Skin is warm and dry. Neurological: General: No focal deficit present. Mental Status: She is alert and oriented to person, place, and time. Psychiatric: Mood and Affect: Mood normal. Behavior: Behavior normal. Medical Decision Making and ED Course Assessment and Plan: In the absence of acute trauma I do not suspect patient has a fracture of her left hip. MRI that was done on April 03, 2024 did show S1-S2 vertebral body reactive changes likely in the setting of the known sacral mel fractures. She does have multilevel degenerative changes of the L-spine moderate L3-L4 and L4-L5 stenosis. I suspect this is the cause for ongoing pain. She has no incontinence, neurovascularly intact and knee jerk is normal therefore do not suspect acute cauda equina, no recent injections or surgery unlikely to have epidural abscess/ Discitis/ osteomyelitis especially in the absence of other infectious sxs. Ddx also includes cystitis, pyelonephritis, kidney stone, osteoarthritis. Plan to obtain CBC, BMP, UA, pain control followed by ambulation trial. Overall in the emergency department workup was reassuring with no leukocytosis or acute anemia or MAUREEN. LFTs were within normal limits as well. UA concerning for possible urinary tract infection for which she was treated with ceftriaxone. CTAP, L spine CT - reassuring as well. No acute findings, well healing old sacral ala fx. For pain control patient was given Tylenol, Toradol, gabapentin, lidocaine patch with mild improvement. Patient was therefore given oxycodone 5 mg which is her home medication. However despite tryingmultimodal pain control patient is significant discomfort with ambulation and required assistance. Therefore patient was admitted. Spine surgery consult made as well. Amount and/or Complexity of Data Reviewed: Type of data reviewed: external lab data reviewed, external radiology data reviewed Type of external notes reviewed: prior ED visit and specialist Additional history required: Additional information was necessary to care for the patient and was obtained: From family. Details: Daughter at bedside Discussion with other providers: Care was discussed with the following providers: ADMITTING PROVIDER (to discuss med. workup and need for admit) and CLIP AND HANGER ATTACHER (to review case and request evaluation). ED Course as of 04/19/24 1350 Sushila Apr 18, 2024 1853 Per chart review MRI don jose armando Apr 03 2024 1. Signal abnormality within bilateral sacral ala at S1-S2 vertebral bodies probably reactive changes secondary to known minimally displaced sacral ala insufficiency fractures. Osseous details are better depicted on the CT reconstruction lumbar spine dated 03/09/2024. This region is inadequately ass essed on the present study. Recommend clinical correlation and short interval follow-up imaging with dedicated MRI of the sacrum to document expected evolution and to exclude underlying pathology.* 2. Minimal signal abnormality along the superior endplate at L5 probably on a degenerative basis. Multilevel additional endplate degenerative changes. 3. Multilevel degenerative changes most pronounced at L3-L4 and L4-L5 with moderate spinal canal stenosis and mild crowding of the cauda equina nerve roots. Multilevel neural foraminal stenosis including severe right neural foraminal stenosis at L4-L5.* 4. 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 [HK] 185 WBC: 9.0 [HK] 190 Creatinine Serum: 0.89 [HK] 190 WBC: 9.0 [HK] 1903 Chart review patient was seen for similar pain in February [address] abdomen pelvis was done which showed sacral mel fractures. Ortho was consulted at the time and they recommended weightbearing as tolerated [HK] 190 Urinalysis W/Reflex to Microscopic & Culture(!) [HK] 1910 WBC, Urine(!): 10 [HK] 2108 Although the pain has improved, continues to have left hip pain. Will give home dose of 5 mg of oxycodone as she waits for CAT scan [HK] 231 Patient tried to ambulate. However had significant pain with ambulation, plan admission for further evaluation. [HK] 2331 Admitting team requesting orthopedic spine surgery, [HK] 2337 Ortho spine aware [HK] MonApr 19, 2024 0008 Patient evaluated by orthopedic spine surgery at this time. No acute concern for cauda equina.Will continue to follow along while inpatient. [HK] ED Course User Index [HK] Fermin Hawkins MD Carlene Rose : 1940 [facility]: [phone] Fermin Hawkins MD 04/19/24 1358 documented in this encounter Miscellaneous Notes * Plan of Care - Betsey Santos - 04/19/2024 2:14 PM EST Case Management Admission Note: Pertinent Clinical impacting hospitalization. PA / Level of Care Change, if applicable: Patient Assessment: Met with patient at bedside confirmed address on record. Lives at home with daughter who will transport her home at discharge. She has recently requested walker but daughter has borrowed from her job. Requires procurement of walker. Surgi walker ordered and delivered to bedside. Patient agreeable to home health referral for PT due to decline with mobility. Referral placed in [facility] and [facility]. Supports, HCP, Designated Caregiver, Guardian: Deborah Rosario Daughter [phone] Initial Discharge Planning: D/c home with [facility] Choice list (with star ratings) provided / discussed, if indicated (Y or NA):n/a * Hospital Course - Patsy Merchant MD - 04/19/2024 1:53 PM EST Patient presented with acute on chronic lower back pain, unable to ambulate. Patient had x-ray and CT of lumbar spine, CT A/P, no acute findings. Patient was seen by orthospine, no urgent invention recommended, patient has epidural steroid injection scheduled on 04/22. Patient was provided with low-dose oxycodone as needed for pain control. Patient was seen by PT, recommend to DC home with walker. Patient is hemodynamic stable to discharge home. Back pain at L4-L5 level 83-year-old female with a history of chronic low back pain and prior surgery for a herniated disc. She presents with an acute exacerbation of her chronic back pain, characterized by sharp pain radiating from the left hip down to the leg, consistent with sciatica. Recent MRI of the lumbar spine showed diffuse degenerative changes and neuroforaminal stenosis, for which she is scheduled to receive alumbar epidural steroid injection. Examination reveals tenderness in the left hip and pain with passive leg raising. CT of the lumbar spine shows no acute abnormalities. Evaluated in the ED by orthospine who are not concerned for cauda equina syndrome. They recommended outpatient lumbar corticosteroid injection on April 22. - Orthospine consulted - Given Oxy IR 2.5 or 5 mg every 6 hours as needed pain - Tylenol 650 mg scheduled - Consider initiation of gabapentin - Follow-up with orthospine outpatient - Lumbar spine x-ray upright done. Mood disorder (HCC) Prior history of mood disorder complicated by insomnia managed on Seroquel 50 mg nightly. - Continue Seroquel 50 mg nightly Neuroforaminal stenosis of lumbar spine -See back pain at L4/L5. Hypertension Patient with history of hypertension managed on losartan 50 mg daily and verapamil 80 mg daily. Blood pressure stable - Continue home verapamil 80 mg daily and losartan 50 mg daily. Impaired mobility Patient presents with impaired mobility secondary to back pain. - Appreciated PT recs cleared for D/C home with family assist. Rec' RW for discharge. Insomnia -See mood disorder section Abnormal urinalysis Patient's UA shows 10 white blood cells per high-powered field, 1+ leukocyte esterase, rare bacteria. Patient denies any dysuria. No concern for UTI at this time. CT abdomen pelvis showed no evidenceof cystitis or pyelonephritis. Patient received IV ceftriaxone 1 g in the ED x1. - Discontinued antibiotics at admission - Outpatient follow-up with PCP if symptomatic. * Plan of Care - Belkis Braga, PT - 04/19/2024 1:14 PM EST Images from the original note were not included. Physical Therapy Physical Therapy Initial Assessment Patient Name: Carlene Rose Date of Evaluation: 04/19/2024 Problem: Adult Inpatient Plan of Care Goal: Plan of Care Review Flowsheets (Taken 04/19/2024 1331) Plan of Care Reviewed With: patient daughter Plan of Care Summary: PT eval performed, pt cleared for D/C home with family assist. Rec' RW for discharge. Progress: improving Default Flowsheet Data (Last 12 Hours) PT Plan and Recommendation Row Name 04/19/24 1314 Clinical Impression Diagnosis impaired mobility Patient/Family Goals Statement to make the pain go away Criteria for Skilled Therapeutic Interventions Met yes;treatment indicated Rehab Potential excellent Therapy Frequency 3 times/wk PT Predicted Duration of Therapy Intervention by discharge PT Anticipated Equipment Needs at Discharge walker, rolling PT Anticipated Discharge Disposition home with family;home with assist PT - OK to Discharge ? Yes Plan of Care Review Plan of Care Reviewed With: patient, daughter Physical therapy evaluation level based on elements of the patient???s history, examination of bodysystems, clinical presentation, and complexity of clinical decision making, as documented in the EMR, in accordance with CMS CPT code standards. Level of complexity of evaluation : Low Comments: Patient Active Problem List Diagnosis Hypertension Seizures (HCC) Back pain at L4-L5 level Mood disorder (HCC) Neuroforaminal stenosis of lumbar spine Impaired mobility Insomnia Abnormal urinalysis Back pain with radiculopathy Past Medical History: Diagnosis Date Hypertension Past Surgical History: Procedure Laterality Date CO EXCIS CERV DISK,ONE LEVEL N/A History of Laminectomy With Disc Removal CO TOTAL ABDOM HYSTERECTOMY N/A History of Hysterectomy Vitals Default Flowsheet Data (Last 12 Hours) Adult PT Focused Evaluation/Treatment Row Name 04/19/24 1314 General Information Patient Profile Review yes Onset of Illness/Injury or Date of Surgery 04/18/24 General Observations of Patient pt supine in bed, agreeable to PT. Pt's daughter present during session Precautions/Restrictions other (see comments) per Ortho note, OOBAT without a brace Row Name 04/19/24 1314 Assistant Women'S Basketball Coach Services Assistant Women'S Basketball Coach Needed No Row Name 04/19/24 1314 Living Environment Living Environment Comment Pt lives in a house with her daughter, 4 JOSE with bilat wide set railings. She has a bedroom upstairs, but has been sleeping on main floor Row Name 04/19/24 1314 Equipment Details Equipment in the home Other (specify) cane, RW Row Name 04/19/24 1314 Functional Level Prior Prior Functional Level Comment Pt is indep with ambulation at baseline, but has started needing a cane/RW due to progressive worsening of back pain. Pt's daughter only works 3 days/wk and is able to assist as needed. Another daughter comes over to assist when she's at work Row Name 04/19/24 1314 Hearing Hearing Status WFL Row Name 04/19/24 1314 Cognitive Assessment/Intervention Follows Commands/Answers Questions (Cognitive) able to follow multi-step instructions Row Name 04/19/24 1314 Sensory Assessment (Somatosensory) Sensory Assessment (Somatosensory) other (see comments) pt reports LLE numbness/tingling Row Name 04/19/24 1314 Pain Scale Pain Scale Pain Scale: Numbers Pre/Post-Treatment (Group) Row Name 04/19/24 1314 Pain Scale: Numbers Treatment Pain: Pre Treatment (Numbers Scale) 8/10 Pain: During Treatment (Numbers Scale) 9/10 Pain: Post Treatment (Numbers Scale) 9/10 Pain Location - Side (Numbers Scale) Left Pain Location - Orientation (Numbers Scale) lower Pain Location - Body (Numbers Scale) extremity Pain Descriptors (Numbers Scale) Sharp;Shooting;Sore Pain Interventions (Numbers Scale) rest;position adjusted Row Name 04/19/24 1314 General UE Assessment Upper Extremity: Range of Motion LUE ROM was WFL;RUE ROM was WFL Row Name 04/19/24 1314 General LE Assessment Lower Extremity: Range of Motion LLE ROM was WFL;RLE ROM was WFL Row Name 04/19/24 1314 MMT (Manual Muscle Testing) Additional Documentation no upper extremity strength deficits identified;lower extremity strength deficits identified [facility] Name 04/19/24 1314 MMT: Lower Extremity Lower Extremity: Manual Muscle Testing right LE strength is WFL;other (see comments) LLE grossly 3-5/, limited due to pain Row Name 04/19/24 1314 Muscle Tone Assessment Left-Side Extremities Muscle Tone Assessment no abnormal tone noted Right-Side Extremities Muscle Tone Assessment no abnormal tone noted Row Name 04/19/24 1314 Motor Coordination Assessment/Training Gross Motor Skills Impairments Detail WFL Row Name 04/19/24 1314 Balance Assessments Balance Assessments Static Sitting Balance;Dynamic Sitting Balance;Static Standing Balance;Dynamic Standing Balance Row Name 04/19/24 131 Static Sitting Balance Static Sitting Position sitting, edge of bed;unsupported Static Sitting Assistance Independent Row Name 04/19/24 131 Dynamic Sitting Balance Dynamic Sitting Position sitting, edge of bed;unsupported Dynamic Sitting Assistance Independent Row Name 04/19/24 131 Static Standing Balance Static Standing Assistance Supervision Static Standing Assistive Devices gait belt;walker, rolling Row Name 04/19/24 131 Dynamic Standing Balance Dynamic Standing Assistance Supervision Dynamic Standing Assistive Devices gait belt;walker,rolling Row Name 04/19/241313 Bed Mobility Assessment/Treatment Assistive Device (Bed Mobility) none [id number] [place] (Bed Mobility) modified independence Comment (Bed Mobility) Increase time and pain, pt reports she has been sleeping on the couch which has been more comfortable for her than the bed Row Name 04/19/241313 Transfer Assessment/Treatment Sit-Stand [place] level (Transfers) supervision required Stand-Sit [place] level(Transfers) supervision required Dxe-Bbelu-Pen Assistive Device (Transfers) gait belt;walker, rolling Comment (Transfers) Cues for hand placement, education provided on purchasing commode over toilet Row Name 04/19/241313 Gait Assessment/Treatment [place] (Gait) supervision required Assistive Device (Gait) gait belt;walker, rolling Distance in Feet (Gait) x50' Gait Pattern Analysis swing-to gait Gait Deviations rosalba, decreased;shuffle;stance time, decreased, left Comment (Gait) Pt educated on small step length to decrease LLE weightbearing. C/o increased pain, but no LOB noted Row Name 04/19/24 131 Stairs Assessment/Treatment Number of Stairs (Stairs) 4 Handrail Location (Stairs) left side (ascending) [place] (Stairs) contact guard assist Assistive Device (Stairs) handrail;gait belt Technique (Stairs) side-stepping Comment (Stairs) Pt able to ascend with RLE, no LOB or buckling noted. CGA for safety Row Name 04/19/241313 AM-PAC AM-PAC With Stairs Row Name 04/19/241313 IP AM-PAC Basic Mobility '6 Clicks'(With Stairs) Turning in Bed Without Bedrails 4 Lying on Back to Sitting on Edge of Flat Bed 4 Moving Bed to Chair 4 Standing Up from Chair 3 Walk in Room 3 Climbs 3-5 Steps 3 IP Mobility Raw Score 21 CMS 0-100% Score 28.97 % CMS G Code Modifier:Current status (G8978) Standardized T-Scale Score 50.25 Row Name 04/19/241313 Clinical Impression Diagnosis impaired mobility Patient/Family Goals Statement to make the pain go away Criteria for Skilled Therapeutic Interventions Met yes;treatment indicated Rehab Potential excellent Therapy Frequency 3 times/wk PT Predicted Duration of Therapy Intervention by discharge PT Anticipated Equipment Needs at Discharge walker, rolling PT Anticipated Discharge Disposition home with family;home with assist PT - OK to Discharge ? Yes Row Name 04/19/24 1314 Planned Therapy Interventions Planned Therapy Interventions balance training;bed mobility training;gait training;patient/family education;strengthening;stair training;transfer training Row Name 04/19/24 1314 Plan of Care Review Plan of Care Reviewed With patient Row Name 04/19/24 1314 PT Eval/ Treat- Additional Details Document Type Initial Evaluation PT Date of Initial Eval/Re-Eval 04/19/24 PT Ordered Same Day as [place]? No Patient Effort excellent Symptoms Noted During/After Treatment increased pain PT Goal Summary (all recorded) PT Rehab Goal Summary Row Name 04/19/24 1300 Physical Therapy Goals Bed Mobility Goal Selection (PT) bed mobility, PT goal 1 Balance Goal Selection (PT) Static Standing;Dynamic Standing Transfer Goal Selection (PT) transfer, PT goal 1 Gait Training Goal Selection (PT) gait training, PT goal 1 Stairs Goal Selection (PT) stairs, PT goal 1 Row Name 04/19/24 1300 Bed Mobility Goal 1 (PT) Activity (Bed Mobility Goal 1, PT) sit to supine/supine to sit [place] Level/Cues Needed (Bed Mobility Goal 1, PT) independent Assitive Devices (Bed Mobility Goal 1, PT) none Time Frame (Bed Mobility Goal 1, PT) by discharge Row Name 04/19/24 1300 Static Standing Balance Goal (PT) Base of Support (Static Standing Balance Goal, PT) normal base [place] Level (Static Standing Balance Goal, PT) modified independence Assistive Devices (Static Standing Balance Goal, PT) walker, rolling Upper Extremity Support (Static Standing Balance Goal, PT) two upper extremities Time Frame (Static Standing Balance Goal, PT) by discharge Row Name 04/19/24 1300 Dynamic Standing Balance Goal (PT) Activity (Dynamic Standing Balance Goal, PT) change direction [place] Level (Dynamic Standing Balance Goal, PT) modified independence Assistive Devices (Dynamic Standing Balance Goal, PT) walker, rolling Strategies (Dynamic Standing Balance Goal, PT) effective Time Frame (Dynamic Standing Balance Goal, PT) by discharge Row Name 04/19/24 1300 Transfer Goal 1 (PT) Activity (Transfer Goal 1, PT) [id number] [place] Level/Cues Needed (Transfer Goal 1, PT) modified independence Assitive Devices (Transfer Goal 1, PT) walker, rolling Time Frame (Transfer Goal 1, PT) by discharge Row Name 04/19/24 1300 Gait Training Goal 1 (PT) Activity (Gait Training Goal 1, PT) gait (walking locomotion) [place] Level (Gait Training Goal 1, PT) modified independence Assistive Devices (Gait Training Goal 1, PT) walker, rolling Distance (Gait Goal 1, PT) x100' Time Frame (Gait Training Goal 1, PT) by discharge Row Name 04/19/24 1300 Stairs Goal 1 (PT) Activity (Stairs Goal 1, PT) ascending stairs;descending stairs [place] Level/Cues Needed (Stairs Goal 1, PT) modified independence Assistive Devices (Stairs Goal 1, PT) handrail Number of Stairs (Stairs Goal 1, PT) 4 Time Frame (Stairs Goal 1, PT) by discharge Row Name 04/19/24 1300 Pain Goal (PT) Pain Score (Pain Goal, PT) 2 Location (Pain Goal, PT) LLE Activity (Pain Goal, PT) during all tasks in daily routine;during ADLs;during mobility tasks;duringtransfers Time Frame (Pain Goal, PT) by discharge Row Name 04/19/24 1300 Dough Mixer Goal (PT) Statement (Custodial Goal, PT) indep community mobility [place] Level (Custodial Goal, PT) independent Time Frame (Dough Mixer Goal, PT) 4 weeks Belkis Braga PT Licensure: CIERRA MARIN: [id number] * Plan of Care - Emily Moe RN - 04/19/2024 8:58 AM EST Plan of Care Reviewed With: patient Progress: no change Patient pleasant, alert and oriented x 4. BP elevated this am, and scheduled Losartan and Verapamilgiven, other VSS. Patient with c/o 9/10 back pain with any movement. PRN PO Oxycodone 5mg and IV Toradol 15mg given, via new 22g IV to R hand. Physical therapy consult placed for patient to be seen. Call light within reach and able to make needs known. Patient seen by PT, daughter present and cleared for home, walker given and patient to be discharged home today. * Assessment & Plan Note - Elvis Tran MD - 04/19/2024 4:32 AM EST Associated Problem(s): Back pain at L4-L5 level 83-year-old female with a history of chronic low back pain and prior surgery for a herniated disc. She presents with an acute exacerbation of her chronic back pain, characterized by sharp pain radiating from the left hip down to the leg, consistent with sciatica. Recent MRI of the lumbar spine showed diffuse degenerative changes and neuroforaminal stenosis, for which she is scheduled to receive alumbar epidural steroid injection. Examination reveals tenderness in the left hip and pain with passive leg raising. CT of the lumbar spine shows no acute abnormalities. Evaluated in the ED by orthospine who are not concerned for cauda equina syndrome. They recommended outpatient lumbar corticosteroid injection on April 22. - Orthospine consulted - Oxy IR 2.5 or 5 mg every 6 hours as needed pain - IV Toradol 15 mg every 6 hours as needed pain - Tylenol 650 mg scheduled - Consider initiation of gabapentin - Follow-up with orthospine - Lumbar spine x-ray upright * Assessment & Plan Note - Elvis Tran MD - 04/19/2024 4:32 AM EST Associated Problem(s): Mood disorder (HCC) Prior history of mood disorder complicated by insomnia managed on Seroquel 50 mg nightly. - Continue Seroquel 50 mg nightly * Assessment & Plan Note - Elvis Tran MD - 04/19/2024 4:32 AM EST Associated Problem(s): Neuroforaminal stenosis of lumbar spine -See back pain at L4/L5. * Assessment & Plan Note - Elvis Tran MD - 04/19/2024 4:32 AM EST Associated Problem(s): Hypertension Patient with history of hypertension managed on losartan 50 mg daily and verapamil 80 mg daily. - Continue home verapamil 80 mg daily and losartan 50 mg daily. * Assessment & Plan Note - Elvis Tran MD - 04/19/2024 4:32 AM EST Associated Problem(s): Impaired mobility Patient presents with impaired mobility secondary to back pain. -PT consult prior to discharge * Assessment & Plan Note - Elvis Tran MD - 04/19/2024 4:32 AM EST Associated Problem(s): Insomnia -See mood disorder section * Assessment & Plan Note - Elvis Tran MD - 04/19/2024 4:32 AM EST Associated Problem(s): Abnormal urinalysis (Resolved 04/19/2024) Patient's UA shows 10 white blood cells per high-powered field, 1+ leukocyte esterase, rare bacteria. Patient denies any dysuria. No concern for UTI at this time. CT abdomen pelvis showed no evidenceof cystitis or pyelonephritis. Patient received IV ceftriaxone 1 g in the ED. - Follow-up urine culture - Discontinue antibiotics * Consult to H&P - Ricky Redding MD - 04/19/2024 12:09 AM EST ORTHOPEDIC SURGERY SPINE CONSULT TO H&P NOTE Reason for Consultation: Left lower extremity radiculopathy Date of Injury: Acute on chronic back pain, left lower extremity radiculopathy worsening over the past week. Mechanism: Atraumatic History of Present Ilness: Carlene Rose is a 83 y.o. female who presents with the above. Patient has chronic lower back pain. She follows in the spine clinic. She has seen Holli multiple times in the spine clinic. An MRI L-spine was performed which was notable for diffuse degenerative changes and neuroforaminal stenosis.She is scheduled for a lumbar epidural steroid injection on 04/22/[address] Hilton. However, the patient had the atraumatic worsening of left lower extremity radicular pain. The patient reports that her pain is worse on her anterior thigh as well as posterior thigh of her left leg. She reports that it radiates down into her foot. She says she occasionally feels that on the right side however it isfar worse on the left. She does note that her lower back pain has resolved. She was seen as a orthopedic consult in late February for sacral insufficiency fracture. Patient reports that she has some decreased sensation in her feet however her right foot is normally numb. The left foot decreased sensation is new. She presented to the ED as she was having difficulty walking secondary to the pain, she is now using a cane, she was previously a community ambulator.She denies any weakness, she denies any numbness asides from her baseline foot numbness. She deniesany bowel or bladder incontinence. She denies any saddle anesthesia. She has been taking Tylenol for the pain. She has a history of a lumbar discectomy roughly 18 years ago. The patient's daughter isat bedside providing additional history PMH: Hypertension PSH: Lumbar discectomy 17 years ago Medications: Scheduled Meds:lidocaine, 1 patch, topical, Once Continuous Infusions: PRN Meds:. Allergies: No Known Allergies Social History: Smoking status: Does not smoke. Alcohol use: Does not drink. Illicit drug use: Does not use illicit drugs. Work status: Retired. Living situation: Lives in [place] Pre-injury ambulation status: Walks with a cane. Extended Emergency Contact Information Primary Emergency Contact: Deborah Rosario [facility] Mobile Relation: Daughter Family History: Denies a family history of bleeding or clotting disorders. ROS: 10 point ROS otherwise negative, except as noted above. PE: VS reviewed. Gen: Awake, alert, conversant. Cardiac/Pulm/GI: Symmetric chest rise. No audible wheezing. Abdomen non-distended. Focused Spine Exam: Skin: Clean, dry, intact TTP: None outside of known site of injury in CTL spine Upper extremities - Motor C5-Deltoids C5-Biceps C6- Wrist Extensors C7-triceps C8- Finger Flexors T1- Interossei RUE 5/5 5/5 5/5 5/5 5/5 5/5 LUE 5/5 5/5 5/5 5/5 5/5 5/5 Lower extremities - Motor L2-Iliopsoas L3-Quadriceps L4- Tib Ant L5- EHL S1- Gastroc RLE 5/5 5/5 5/5 5/5 5/5 LLE 4/5 5/5 5/5 5/5 5/5 Upper extremities - Sensory Sensation intact to light touch C2-T1 Lower extremities - Sensory Sensation intact to light touch L1-S2 Maddy-anal sensation: Patient declined Rectal tone: Resting: patient declined Active: patient declined Reflexes: Normal biceps/brachioradialias/patella reflexes Grace's sign: negative Babinski: toes down going Ankle clonus: symmetric, physiologic clonus Imaging: MRI shows diffuse spondylotic changes throughout the lumbar spine with loss of disc height at all levels between L2-L5. There is slight anterior listhesis of L4 on L5. Bilateral L3-L4 neuroforaminal stenosis., This is severe. Severe neuroforaminal stenosis AT L4-L5 and mild central stenosis at L4-L5 L3-L4, otherwise unremarkable Labs: Pertinent labs were reviewed by me. They include: Hematocrit: 38.4 WBC: 9.0 Na: 138 K: 4.2 INR: Cr: 0.89 Glucose: 99 CRP: ESR: Lactate: Assessment: Carlene Rose is a 83 y.o. female cane ambulator with PMH significant for chronic back pain who presented with left lower extremity radiculopathy which worsened over the past week atraumatically. Prior MRI from 2 weeks prior shows severe neuroforaminal stenosis bilaterally which would explain her left leg radicular symptoms. She has mild central stenosis, no saddle anesthesia, no bowel or bladder incontinence. She most likely has radiculopathy secondary to neuroforaminal nerve compression. She already has a lumbar epidural steroid injection scheduled with Dr. Hilton this upcoming Monday whichwould be a good initial intervention for her pain control. Orthopedic spine will continue to follow, no acute surgical intervention required at this time. Any weakness (L IP) is attributable to her pain and she is otherwise neurointact. Plan: Weightbearing: OOBAT Bracing: None DVT prophylaxis: mechanical DVT prophylaxis Antibiotics: None Further imaging studies: UR L spine XR Further laboratory studies: None Dispo: Per primary, can follow up with the spine center and agree with obtaining the LESI with Dr. Hilton Plan of care will be discussed with patient, inter-professional team and attending on-call. Please excuse any word selection errors, misspellings,or grammatical errors as voice recognition software was used in the generation of this note. Ricky Redding MD PGY-3 Orthopaedic Surgery [facility]: #[id number] for Consults, #[phone] for Primary Patients [facility]: #[phone] for Consults/Inpatient Cosigned by Perry Kennedy MD at 04/19/2024 3:01 PM EST Associated attestation - Perry Kennedy MD - 04/19/2024 3:01 PM EST I reviewed the case with the resident but did not see the patient. I agree with the assessment and plan as documented in the resident's note. I have personally reviewed the radiology images Perry Kennedy MD Portions of this note were created with voice recognition software. As such, please excuse any phonetic changes, misspellings, or grammatical errors. Efforts were made to proofread and correct this note prior to signing. If there are any questions, please don't hesitate to contact the office. documented in this encounter Plan of Treatment Upcoming Encounters Date Type Department Care Team (Late st Contact Info) Description 05/17/2024 11:00 AM EST Office Visit [facility] [address] [place] [id number] Fixed Income Director: Marcia Orlando MD [address] [place] [phone] Yesica Mi PA [address] [place] [phone] 07/11/2024 3:20 PM EDT Follow-Up [facility] [address] [place] [phone] Piero Hilton MD [address] [place] [phone] documented as of this encounter Procedures * Due to [place] state law, this organization might not be sharing negative HIV tests. Procedure Name Priority Date/Time Associated Diagnosis Comments XR LUMBAR SPINE 2 OR 3 VIEWS STAT 04/19/2024 5:[address] RECONSTRUCTION LUMBAR SPINE STAT 04/18/2024 9:[address] ABDOMEN PELVIS W CONTRAST STAT 04/18/2024 9:37 PM EST URINALYSIS W/REFLEX TO MICROSCOPIC & CULTURE STAT 04/18/2024 6:43 PM EST SOLIMAN TOP, URN STAT 04/18/2024 6:43 PM EST UA/CULTURE REFLEX STAT 04/18/2024 6:4 3 PM EST URINE CULTURE, ROUTINE STAT 6:43 PM EST CBC AUTO DIFFERENTIAL STAT 04/18/2024 12:18 PM EST COMPREHENSIVE METABOLIC PANEL STAT 04/18/2024 12:18 PM EST documented in this encounter Results * Due to [place] state law, this organization might not be sharing negative HIV tests. * X-Ray Lumbar Spine 2 or 3 Views (04/19/2024 5:04 AM EST) Anatomical Region Laterality Modality Spine, L-spine Computed Radiogr aphy 04/19/2024 5:24 AM EST Impressions 04/19/2024 5:26 AM EST The bones are diffusely demineralized. ??Unchanged dextroconvex scoliosis of the lumbar spine and advanced multilevel degenerative changes as characterized on prior MRI. ??Unchanged degenerative grade 1 anterolisthesis at L4-L5. ??Chronic compression deformity of the L1 vertebral body. ??Unchanged subacute sacral insufficiency fractures. If this radiology report contains a blank impression section, it is an incomplete radiology report. ??Please contact the interpreting radiologist or applicable radiology division as soon as possible to obtain the completed interpretation. ? Workstation ID: [id number] Narrative 04/19/2024 5:26 AM EST COMPARISON: CT lumbar spine 04/18/2024. ??Lumbar spine MRI 04/03/2024. FINDINGS AND Resulting Agency Comment [id number] Procedure Note Clem Holguin, DO - 04/19/2024 COMPARISON: CT lumbar spine 04/18/2024. Lumbar spine MRI 04/03/2024. FINDINGS AND IMPRESSION: The bones are diffusely demineralized. Unchanged dextroconvex scoliosisof the lumbar spine and advanced multilevel degenerative changes ascharacterized on prior MRI. Unchanged degenerative grade 1anterolisthesis at L4-L5. Chronic compression deformity of the [id number] body. Unchanged subacute sacral insufficiency fractures. If this radiology report contains a blank impression section, it is anincomplete radiology report. Please contact the interpreting radiologistor applicable radiology division as soon as possible to obtain thecompleted interpretation. Workstation ID: [id number] us Elvis Tran MD IMG XR PROCEDURES Final Re sult * CT Reconstruction of Lumbar Spine (04/18/2024 9:37 PM EST) Anatomical Region Laterality Modality Spine, C-spine Computed Tomogra phy 04/18/2024 10:1 2 PM EST Impressions 04/18/2024 10:15 PM EST No acute abnormality. If this radiology report contains a blank impression section, it is an incomplete radiology report. ??Please contact the interpreting radiologist or applicable radiology division as soon as possible to obtain the completed interpretation. ? Workstation ID: [id number] Up-to-date CT equipment and radiation dose reduction techniques were employed. CTDIvol: 14.7 mGy. DLP: 672 mGy-cm. ??The following accession numbers are related to this dose report [id number]: [id number] Up-to-date CT equipment and radiation dose reduction techniques were employed. CTDIvol: 14.7 mGy. DLP: 672 mGy-cm. ??The following accession numbers are related to this dose report [id number]: [id number] Narrative 04/18/2024 10:15 PM EST COMPARISON: 03/09/2024. ?? FINDINGS: The lung bases are clear without focal consolidation, pleural effusion or pneumothorax. The liver demonstrates uniform enhancement without intrahepatic ductal dilatation or focal mass lesion. The gallbladder is physiologically distended without gallstones. The hepatic arterial and portal venous flow is widely patent. The kidneys demonstrate bilateral uniform uptake and excretion of contrast material without hydronephrosis. Multiple renal cysts are stable. The bladder is normal. The pancreas, adrenals and spleen are normal. The bowel demonstrates normal course and configuration without obstruction. Again seen are multiple colonic diverticula without diverticulitis. The appendix is normal. Multifocal degenerative change of the lumbar spine is stable. The lumbar spine is otherwise normal. There is interval healing of the previously described sacral insufficiency fractures. Resulting Agency Comment [id number] Procedure Note Harpreet Estrada MD - 04/18/2024 COMPARISON: 03/09/2024. FINDINGS: The lung bases are clear without focal consolidation, pleural effusion orpneumothorax. The liver demonstrates uniform enhancement without intrahepatic ductaldilatation or focal mass lesion. The gallbladder is physiologicallydistended without gallstones. The hepatic arterial and portal venous flowis widely patent. The kidneys demonstrate bilateral uniform uptake and excretion of contrastmaterial without hydronephrosis. Multiple renal cysts are stable. Thebladder is normal. The pancreas, adrenals and spleen are normal. The bowel demonstrates normal course and configuration withoutobstruction. Again seen are multiple colonic diverticula withoutdiverticulitis. The appendix is normal. Multifocal degenerative change of the lumbar spine is stable. The lumbarspine is otherwise normal. There is interval healing of the previouslydescribed sacral insufficiency fractures. IMPRESSION: No acute abnormality. If this radiology report contains a blank impression section, it is anincomplete radiology report. Please contact the interpreting radiologistor applicable radiology division as soon as possible to obtain thecompleted interpretation. Workstation ID: [id number] Up-to-date CT equipment and radiation dose reduction techniques wereemployed. CTDIvol: 14.7 mGy. DLP: 672 mGy-cm. The following accessionnumbers are related to this dose report [id number]: [id number] Up-to-date CT equipment and radiation dose reduction techniques wereemployed. CTDIvol: 14.7 mGy. DLP: 672 mGy-cm. The following accessionnumbers are related to this dose report [id number]: [id number] us Fermin Hawkins MD [facility]EDURES Final Result * CT Abd Pelvis W Contrast (04/18/2024 9:37 PM EST) Anatomical Region Laterality Modality Body Computed Tomogra phy 04/18/2024 10:1 2 PM EST Impressions 04/18/2024 10:15 PM EST No acute abnormality. If this radiology report contains a blank impression section, it is an incomplete radiology report. ??Please contact the interpreting radiologist or applicable radiology division as soon as possible to obtain the completed interpretation. ? Workstation ID: [id number] Up-to-date CT equipment and radiation dose reduction techniques were employed. CTDIvol: 14.7 mGy. DLP: 672 mGy-cm. ??The following accession numbers are related to this dose report [id number]: [id number] Up-to-date CT equipment and radiation dose reduction techniques were employed. CTDIvol: 14.7 mGy. DLP: 672 mGy-cm. ??The following accession numbers are related to this dose report [id number]: [id number] Narrative 04/18/2024 10:15 PM EST COMPARISON: 03/09/2024. ?? FINDINGS: The lung bases are clear without focal consolidation, pleural effusion or pneumothorax. The liver demonstrates uniform enhancement without intrahepatic ductal dilatation or focal mass lesion. The gallbladder is physiologically distended without gallstones. The hepatic arterial and portal venous flow is widely patent. The kidneys demonstrate bilateral uniform uptake and excretion of contrast material without hydronephrosis. Multiple renal cysts are stable. The bladder is normal. The pancreas, adrenals and spleen are normal. The bowel demonstrates normal course and configuration without obstruction. Again seen are multiple colonic diverticula without diverticulitis. The appendix is normal. Multifocal degenerative change of the lumbar spine is stable. The lumbar spine is otherwise normal. There is interval healing of the previously described sacral insufficiency fractures. Resulting Agency Comment [id number] Procedure Note Harprete Estrada MD - 04/18/2024 COMPARISON: 03/09/2024. FINDINGS: The lung bases are clear without focal consolidation, pleural effusion orpneumothorax. The liver demonstrates uniform enhancement without intrahepatic ductaldilatation or focal mass lesion. The gallbladder is physiologicallydistended without gallstones. The hepatic arterial and portal venous flowis widely patent. The kidneys demonstrate bilateral uniform uptake and excretion of contrastmaterial without hydronephrosis. Multiple renal cysts are stable. Thebladder is normal. The pancreas, adrenals and spleen are normal. The bowel demonstrates normal course and configuration withoutobstruction. Again seen are multiple colonic diverticula withoutdiverticulitis. The appendix is normal. Multifocal degenerative change of the lumbar spine is stable. The lumbarspine is otherwise normal. There is interval healing of the previouslydescribed sacral insufficiency fractures. IMPRESSION: No acute abnormality. If this radiology report contains a blank impression section, it is anincomplete radiology report. Please contact the interpreting radiologistor applicable radiology division as soon as possible to obtain thecompleted interpretation. Workstation ID: [id number] Up-to-date CT equipment and radiation dose reduction techniques wereemployed. CTDIvol: 14.7 mGy. DLP: 672 mGy-cm. The following accessionnumbers are related to this dose report [id number]: [id number] Up-to-date CT equipment and radiation dose reduction techniques wereemployed. CTDIvol: 14.7 mGy. DLP: 672 mGy-cm. The following accessionnumbers are related to this dose report [id number]: [id number] Fermin Hawkins MD IMG CT PROCEDURES Final Result * Urine Culture, Routine (04/18/2024 6:43 PM EST) Pathologist [facility] Culture Mixed genital carmelita isolated. These superficial bacteria are not indicative of a urinary tract infection. No further organism identification is warranted on this specimen. 04/20/2024 1:03 AM EST [facility] Urine Urine specimen collection, clean catch / Unknown Non-Blood Collection / Unknown 04/18/2024 6:43 PM EST 04/18/2024 7:02 PM EST Narrative [facility] - 04/20/2024 1:03 AM EST [facility] Received Date: MICRO NUMBER: [id number] SPECIMEN QUALITY: Adequate SOURCE: URINE CLEAN CATCH STATUS: FINAL If clinically indicated, recollect clean-catch, mid-stream urine and transfer immediately to Urine Culture Transport Tube. Elvis Tran MD LAB MICROBIOLOGY - GENERAL ORDERABLES Final Result [place] [address] [facility] [address] [facility] [address], [place] [address], [place] [phone] [facility] [address] [facility] [address], [place] [address], [place] [phone] * [place] Top, Urine (04/18/2024 6:43 PM EST) Extra Tube Hold for add-ons. 04/18/2024 11:05 PM EST [facility] Comment:Auto resulted. Urine Urine specimen collection, clean catch / Unknown Non-Blood Collection / Unknown 04/18/2024 6:43 PM EST 04/18/2024 6:43 PM EST us Fermin Hawkins MD LAB URINE ORDERABLES Final Resul t [facility] [address] [place] [address], [place] * (ABNORMAL) Urinalysis W/Reflex to Microscopic & Culture (04/18/2024 6:43 PM EST) Color, Urine Yellow Colorless, Light Yellow, Yellow, Dark Yellow 04/18/2024 7:03 PM EST [facility] Clarity, Urine Slightly Cloudy(A) Clear 04/18/2024 7:03 PM EST [facility] Specific [place], Urine 1.025 1.005 - 1.030 04/18/2024 7:03 PM EST [facility] pH, Urine 5.0 4.6 - 8.0 04/18/2024 7:03 PM EST [facility] Protein, Urine Negative Negative 04/18/2024 7:03 PM EST [facility] Glucose, Urine Negative Negative 04/18/2024 7:03 PM EST [facility] Ketones, Urine Negative Negative 04/18/2024 7:03 PM EST [facility] Bilirubin, Urine Negative Negative 04/18/2024 7:03 PM EST [facility] Blood, Urine Negative Negative 04/18/2024 7:03 PM EST [facility] Nitrite, Urine Negative Negative 04/18/2024 7:03 PM EST [facility] Urobilinogen, Urine Positive(A) Normal 04/18/2024 7:03 PM EST [facility] Leukocyte Esterase, Urine 1+(A) Negative 04/18/2024 7:03 PM EST [facility] WBC, Urine 10(H) 0 - 2 /HPF 04/18/2024 7:03 PM EST [facility] RBC, Urine 2 0 - 2 /HPF 04/18/2024 7:03 PM EST [facility] Hyaline Casts, Urine 2 0 - 2 /LPF 04/18/2024 7:03 PM EST [facility] Squamous Epithelial Cells, Urine 4 /HPF 04/18/2024 7:03 PM EST [facility] Bacteria, Urine Rare(A) None /HPF /HPF 04/18/2024 7:03 PM EST [facility] Mucus, Urine Rare /LPF 04/18/2024 7:03 PM EST [facility] Urine Urine specimen collection, clean catch / Unknown Non-Blood Collection / Unknown 04/18/2024 6:43 PM EST 04/18/2024 6:43 PM EST us Fermin Hawkins MD LAB URINE ORDERABLES Final Resul t [facility] [address] [place] [address], [place] * (ABNORMAL) Comprehensive Metabolic Panel (If age > 70) (04/18/2024 12:18 PM EST) NA 138 135 - 145 mmol/L 04/18/2024 1:35 PM EST [facility] K 4.2 3.5 - 5.3 mmol/L 04/18/2024 1:35 PM EST [facility] Cl 107 98 - 107 mmol/L 04/18/2024 1:35 PM EST [facility] CO2 19(L) 22 - 32 mmol/L 04/18/2024 1:35 PM [facility] Anion Gap 12 5 - 15 04/18/2024 1:35 PM [facility] Glucose 99 65 - 99 mg/dL 04/18/2024 1:35 PM [facility] Creatinine 0.89 0.50 - 1.20 mg/dL 04/18/2024 1:35 PM [facility] Calcium 9.3 8.6 - 10.5 mg/dL 04/18/2024 1:35 PM [facility] Total Protein 6.8 6.0 - 8.0 g/dL 04/18/2024 1:35 PM [facility] Albumin 3.8 3.5 - 5.2 g/dL 04/18/2024 1:35 PM [facility] Bilirubin, Total 0.5 0.2 - 1.2 mg/dL 04/18/2024 1:35 PM [facility] Alkaline Phosphatase 181(H) 35 - 129 U/L 04/18/2024 1:35 PM [facility] AST 25 10 - 40 U/L 04/18/2024 1:35 PM [facility] ALT 9(L) 10 - 40 U/L 04/18/2024 1:35 PM [facility] BUN 24(H) 7 - 23 mg/dL 04/18/2024 1:35 PM [facility] eGFR 64 >=60 mL/min/1. 73m2 04/18/2024 1:35 PM [facility] Comment:The estimated glomer ular filtration rate (eGFR) is calculated using a new formula developed by the NKF-ASN task force to eliminate race-based correction factors. The new formula uses serum/plasma creatinine, age, and gender to determine eGFR. A value below 60mls/min might indicate kidney disease and will be flagged. For additional information, see Rodríguez et al, Am J Kidney Dis. 2021;79(2):268- 288, A Unifying Approach for GFR estimation: Recommendations of the NKF-ASN Task Force on Reassessing the Inclusion of Race in Diagnosing Kidney Disease . Globulin, Total 3.0 2.1 - 4.2 g/dL 04/18/2024 1:35 PM EST [facility] A/G Ratio 1.3(L) 1.5 - 3.0 04/18/2024 1:35 PM EST [facility] Blood Structure of peripheral vein / Unknown Venipuncture / Unknown 04/18/2024 12:18 PM EST 04/18/2024 12:33 PM EST us Fermin Hawkins MD LAB BLOOD ORDERABLES Final Resul t [facility] [address] [place] [address], [place] * (ABNORMAL) CBC Auto Differential (04/18/2024 12:18 PM EST) WBC 9.0 3.8 - 10.8 10*3/uL 04/18/2024 12:40 PM EST [facility] RBC 4.45 3.80 - 5.10 10*6/uL 04/18/2024 12:40 PM EST [facility] Hemoglobin 12.7 11.7 - 15.5 g/dL 04/18/2024 12:40 PM EST [facility] Hematocrit 38.4 35.0 - 45.0 % 04/18/2024 12:40 PM EST [facility] MCV 86.3 80.0 - 100.0 fL 04/18/2024 12:40 PM EST [facility] MCH 28.5 27.0 - 33.0 pg 04/18/2024 12:40 PM EST [facility] MCHC 33.1 32.0 - 36.0 g/dL 04/18/2024 12:40 PM [facility] RDW 14.0 11.0 - 15.0 % 04/18/2024 12:40 PM [facility] Platelets 219 140 - 400 10*3/uL 04/18/2024 12:40 PM [facility] MPV 8.9 7.5 - 12.5 fL 04/18/2024 12:40 PM [facility] Neutrophil % 69.1 % 04/18/2024 12:40 PM [facility] Immature Grans % 0.4 0.0 - 0.9 % 04/18/2024 12:40 PM [facility] Lymphocyte % 18.8 % 04/18/2024 12:40 PM [facility] Monocyte % 8.3 % 04/18/2024 12:40 PM [facility] Eosinophil % 2.8 % 04/18/2024 12:40 PM [facility] Basophil % 0.6 % 04/18/2024 12:40 PM [facility] Neutrophil # 6.21 1.50 - 7.80 10*3/uL 04/18/2024 12:40 PM [facility] Immature Grans # 0.04(H) <=0.03 10*3/uL 04/18/2024 12:40 PM [facility] Lymphocyte # 1.70 0.85 - 3.90 10*3/uL 04/18/2024 12:40 PM [facility] Monocyte # 0.80 0.20 - 0.95 10*3/uL 04/18/2024 12:40 PM [facility] Eosinophil # 0.30 0.02 - 0.50 10*3/uL 04/18/2024 12:40 PM [facility] Basophil # 0.10 0.00 - 0.20 10*3/uL 04/18/2024 12:40 PM EST [facility] nRBC % 0.0 /100 WBCs 04/18/2024 12:40 PM EST [facility] nRBC # <0.01 <0.01 10*3/uL 04/18/2024 12:40 PM EST [facility] Blood Structure of peripheral vein / Unknown Venipuncture / Unknown 04/18/2024 12:18 PM EST 04/18/2024 12:33 PM EST us Fermin Hawkins MD LAB BLOOD ORDERABLES Final Resul t [facility] [address] [place] [address], documented in this encounter Visit Diagnoses Diagnosis Back pain at L4-L5 level- Primary Urinary tract infection without hematuria, site unspecified Acute left-sided low back pain with left-sided sciatica Back pain at L4-L5 level Impaired mobility Other ill-defined conditions Mood disorder (HCC) Unspecified episodic mood disorder Neuroforaminal stenosis of lumbar spine Hypertension Unspecified essential hypertension Impaired mobility Other ill-defined conditions Insomnia Insomnia, unspecified Abnormal urinalysis Other nonspecific finding on examination of urine Back pain with radiculopathy documented in this encounter Admitting Diagnoses Diagnosis Back pain at L4-L5 level Back pain with radiculopathy documented in this encounter Administered Medications Inactive Administered Medications - up to 3 most recent administrations Medication Order MAR Action Action Date Dose Rate Site acetaminophen (TYLENOL) tablet 650 mg 650 mg, oral, Every 6 hours scheduled, First dose (after last modification) on Mon04/19/24 at 0600, Until Discontinued, To be given in conjunction with other pain medications if ordered as part of multi-modal therapy. Given 04/19/2024 11:25 AM EST 650 mg Given 04/19/2024 5:50 AM EST 650 mg bisacodyL (DULCOLAX) suppository 10 mg 10 mg, rectal, Daily PRN, constipation, no bowel movement x 48 hours, Starting on Mon04/19/24 at 0313, Until Mon04/19/24 at 1715 cefTRIAXone (ROCEPHIN) injection 1 g 1 g, intravenous, Administer over 3 Minutes, Once, On Sushila 04/18/24 at 1915, 1 dose, Dilute 1 g with 10 mL of sterile water for injection. Administer over 3-5 minutes., Reason for Therapy: Bacterial Infection Suspected, Indication: Urinary Tract Infection Given 04/18/2024 7:31 PM EST 1 g enoxaparin (LOVENOX) subcutaneous injection 40 mg 40 mg, subcutaneous, Daily, First dose on Mon04/19/24 at 1700, Until Discontinued gabapentin (NEURONTIN) capsule 100 mg 100 mg, oral, Once, On Sushila 04/18/24 at 1855, 1 dose, Give 2 hour before or after Mg+, Al-based antacids. Given 04/18/2024 7:04 PM EST 100 mg gabapentin (NEURONTIN) capsule 200 mg 200 mg, oral, Nightly, First dose (after last reorder) on Mon04/19/24 at 2100, Until Discontinued, Give 2 hour before or after Mg+, Al-based antacids. ibuprofen (MOTRIN) tablet 600 mg 600 mg, oral, Once, On Sushila 04/18/24 at 2335, 1 dose Given 04/18/2024 11:37 PM EST 600 mg iohexoL (OMNIPAQUE) 350 mg iodine/mL contrast 10-200 mL 10-200 mL, intravenous, Once, On Sushila 04/18/24 at 2130, 1 dose, Imaging Protocol Orders Given 04/18/2024 9:29 PM EST 100 mL ketorolac (TORADOL) injection 15 mg 15 mg, intravenous, Once, On Sushila 04/18/24 at 1855, 1 dose Given 04/18/2024 7:04 PM EST 15 mg ketorolac (TORADOL) injection 15 mg 15 mg, intravenous, Every 6 hours PRN, Moderate pain or 4-6 (on the numeric pain scale), Starting on Mon04/19/24 at 0314, Until Mon04/19/24 at 1715 Given 04/19/2024 2:39 PM EST 15 mg Given 04/19/2024 8:39 AM EST 15 mg lidocaine (LIDODERM) 5% patch 1 patch 1 patch, topical, Administer over 12 Hours, Once, On Sushila 04/18/24 at 1855, 1 dose, Apply to left lower back. Leg - area of pain . Patch Applied 04/18/2024 7:04 PM EST 1 patch Back losartan (COZAAR) tablet 50 mg 50 mg, oral, Daily, First dose on Mon04/19/24 at 0900, Until Discontinued, Hold for SBP < 90 mmHg. Given 04/19/2024 7:59 AM EST 50 mg naloxone (NARCAN) injection 0.4 mg 0.4 mg, intravenous, Every 2 hour PRN, opioid reversal, respiratory depression, Starting on Mon04/19/24 at 0315, Until Mon04/19/24 at 1715, Complete opioid reversal for respiratory rate less than 10 (POSS greater than 2 or RASS less than 0). Notify LIP if naloxone is administered to evaluate the patient to determine if additional naloxone doses are needed and to reevaluate the patient's opioid orders. naloxone 0.04 mg injection 0.04 mg, intravenous, Every 3 minutes as needed, opioid reversal, respiratory depression, Starting on Mon04/19/24 at 0315, Until Mon04/19/24 at 1715, Partial opioid reversal for respiratory rate less than 10 (POSS greater than 2 or RASS less than 0). Notify LIP if naloxone is administered to evaluate the patient to determine if additional naloxone doses are needed and to reevaluate the patient's opioid orders. Draw up 1 mL from 0.4 mg/mL injection and add 9 mL NS for a final concentration of 0.04 mg/mL. oxyCODONE IR (ROXICODONE) tablet 2.5 mg 2.5 mg, oral, Every 6 hours PRN, Moderate pain or 4-6 (on the numeric pain scale), Starting on Mon04/19/24 at 0315, Until Mon04/19/24 at 1715, Assess pain, sedation, and respiratory rate prior to each opioid administration. oxyCODONE IR (ROXICODONE) tablet 5 mg 5 mg, oral, Once, On Sushila 04/18/24 at 2115, 1 dose, Assess pain, sedation, and respiratory rate prior to each opioid administration. Given 04/18/2024 9:20 PM EST 5 mg oxyCODONE IR (ROXICODONE) tablet 5 mg 5 mg, oral, Every 6 hours PRN, Severe pain or 7-10 (on the numeric pain scale), Starting on Mon04/19/24 at 0315, Until Mon04/19/24 at 1714, Assess pain, sedation, and respiratory rate prior to each opioid administration. Given 04/19/2024 2:20 PM EST 5 mg Given 04/19/2024 7:59 AM EST 5 mg senna (SENOKOT) tablet 17.2 mg 17.2 mg, oral, Nightly PRN, constipation, no bowel movement x 24 hours, Starting on Mon04/19/24 at 0313, Until Mon04/19/24 at 1714 sodium chloride 0.9% flush 2.5-10 mL 2.5-10 mL, intravenous, See admin instructions, Starting on Mon04/19/24 at 0313, Until Mon04/19/24 at 1714, Flush each lumen with a pulsatile motion with a minimum of 2.5 mL before and after use. Please note which lumen(s) have been flushed in comments section. sodium chloride 0.9% flush 2.5-10 mL 2.5-10 mL, intravenous, Every 12 hours scheduled, First dose on Mon04/19/24 at 0900, Until Discontinued, Flush each lumen with a pulsatile motion with a minimum of 2.5 mL every 12 hours. Please note which lumen(s) have been flushed in comments section. Given 04/19/2024 8:00 AM EST 10 mL verapamiL (CALAN) tablet 80 mg 80 mg, oral, Daily, First dose on Mon04/19/24 at 0900, Until Discontinued, Hold for SBP less than 90 mmHg or HR less than 50 bpm. Given 04/19/2024 7:59 AM EST 80 mg documented in this encounter Active and Recently Administered Medications Times are shown in EST. Scheduled Medication Order 04/17/2024 04/18/2024 04/19/2024 acetaminophen (TYLENOL) tablet 650 mg 650 mg, oral, Every 6 hours scheduled, First dose (after last modification) on Mon04/19/24 at 0600, Until Discontinued, To be given in conjunction with other pain medications if ordered as part of multi-modal therapy. 0550 (Given - Provid er: Rocio Allison RN)1125 (Given - Provider: Emily Moe RN) cefTRIAXone (ROCEPHIN) injection 1 g (COMPLETED) 1 g, intravenous, Administer over 3 Minutes, Once, On Sushila 04/18/24 at 1915, 1 dose, Dilute 1 g with 10 mL of sterile water for injection. Administer over 3-5 minutes., Reason for Therapy: Bacterial Infection Suspected, Indication: Urinary Tract Infection 1930 (Given - Provider: Yosvany De Paz, DOUG) enoxaparin (LOVENOX) subcutaneous injection 40 mg 40 mg, subcutaneous, Daily, First dose on Mon04/19/24 at 1700, Until Discontinued gabapentin (NEURONTIN) capsule 100 mg (COMPLETED) 100 mg, oral, Once, On Sushila 04/18/24 at 1855, 1 dose, Give 2 hour before or after Mg+, Al-based antacids. 1903 (Given - Provider: Yosvany De Paz RN) gabapentin (NEURONTIN) capsule 200 mg 200 mg, oral, Nightly, First dose (after last reorder) on Mon04/19/24 at 2100, Until Discontinued, Give 2 hour before or after Mg+, Al-based antacids. ibuprofen (MOTRIN) tablet 600 mg (COMPLETED) 600 mg, oral, Once, On Sushila 04/18/24 at 2335, 1 dose 233 (Given - Provider: Yosvany De Paz RN) iohexoL (OMNIPAQUE) 350 mg iodine/mL contrast 10-200 mL (COMPLETED) 10-200 mL, intravenous, Once, On Sushila 04/18/24 at 2130, 1 dose, Imaging Protocol Orders 2128 (Given - Provider: Pascual James, RT(R)) ketorolac (TORADOL) injection 15 mg (COMPLETED) 15 mg, intravenous, Once, On Sushila 04/18/24 at 1855, 1 dose 1903 (Given - Provider: Yosvany De Paz RN) lidocaine (LIDODERM) 5% patch 1 patch (COMPLETED) 1 patch, topical, Administer over 12 Hours, Once, On Mon04/18/24 at 1855, 1 dose, Apply to left lower back. Leg - area of pain . 1903 (Patch Applied - Provider: Yosvany De Paz RN) 703 (Patch Removed - Provider: Emily Moe RN) losartan (COZAAR) tablet 50 mg 50 mg, oral, Daily, First dose on Mon04/19/24 at 0900, Until Discontinued, Hold for SBP < 90 mmHg. 0759 (Given - Provid er: Emily Moe RN) oxyCODONE IR (ROXICODONE) tablet 5 mg (COMPLETED) 5 mg, oral, Once, On Sushila 04/18/24 at 2115, 1 dose, Assess pain, sedation, and respiratory rate prior to each opioid administration. 2119 (Given - Provider: Yosvany De Paz RN) QUEtiapine (SEROquel) tablet 50 mg 50 mg, oral, Nightly, First dose on Mon04/19/24 at 2100, Until Discontinued sodium chloride 0.9% flush 2.5-10 mL(Linked Group 1) 2.5-10 mL, intravenous, See admin instructions, Starting on Mon04/19/24 at 0313, Until Mon04/19/24 at 1715, Flush each lumen with a pulsatile motion with a minimum of 2.5 mL before and after use. Please note which lumen(s) have been flushed in comments section. sodium chloride 0.9% flush 2.5-10 mL(Linked Group 1) 2.5-10 mL, intravenous, Every 12 hours scheduled, First dose on Mon04/19/24 at 0900, Until Discontinued, Flush each lumen with a pulsatile motion with a minimum of 2.5 mL every 12 hours. Please note which lumen(s) have been flushed in comments section. 0800 (Given - Provid er: Emily Moe RN) verapamiL (CALAN) tablet 80 mg 80 mg, oral, Daily, First dose on Mon04/19/24 at 0900, Until Discontinued, Hold for SBP less than 90 mmHg or HR less than 50 bpm. 0759 (Given - Provid er: Emily Moe RN) PRN Medication Order 04/17/2024 04/18/2024 04/19/2024 bisacodyL (DULCOLAX) suppository 10 mg 10 mg, rectal, Daily PRN, constipation, no bowel movement x 48 hours, Starting on Mon04/19/24 at 0313, Until Mon04/19/24 at 1715 ketorolac (TORADOL) injection 15 mg 15 mg, intravenous, Every 6 hours PRN, Moderate pain or 4-6 (on the numeric pain scale), Starting on Mon04/19/24 at 0314, Until Mon04/19/24 at 1715 0839 (Given - Provid er: Emily Moe RN)1439 (Given - Provider: Emily Moe RN) naloxone (NARCAN) injection 0.4 mg 0.4 mg, intravenous, Every 2 hour PRN, opioid reversal, respiratory depression, Starting on Mon04/19/24 at 0315, Until Mon04/19/24 at 1715, Complete opioid reversal for respiratory rate less than 10 (POSS greater than 2 or RASS less than 0). Notify LIP if naloxone is administered to evaluate the patient to determine if additional naloxone doses are needed and to reevaluate the patient's opioid orders. naloxone 0.04 mg injection 0.04 mg, intravenous, Every 3 minutes as needed, opioid reversal, respiratory depression, Starting on Mon04/19/24 at 0315, Until Mon04/19/24 at 1715, Partial opioid reversal for respiratory rate less than 10 (POSS greater than 2 or RASS less than 0). Notify LIP if naloxone is administered to evaluate the patient to determine if additional naloxone doses are needed and to reevaluate the patient's opioid orders. Draw up 1 mL from 0.4 mg/mL injection and add 9 mL NS for a final concentration of 0.04 mg/mL. oxyCODONE IR (ROXICODONE) tablet 2.5 mg(Linked Group 2) 2.5 mg, oral, Every 6 hours PRN, Moderate pain or 4-6 (on the numeric pain scale), Starting on Mon04/19/24 at 0315, Until Mon04/19/24 at 1715, Assess pain, sedation, and respiratory rate prior to each opioid administration. 0759 (See Alternativ e - Provider: Emily Moe RN)1420 (See Alternative - Provider: Emily Moe RN) oxyCODONE IR (ROXICODONE) tablet 5 mg(Linked Group 2) 5 mg, oral, Every 6 hours PRN, Severe pain or 7-10 (on the numeric pain scale), Starting on Mon04/19/24 at 0315, Until Mon04/19/24 at 1715, Assess pain, sedation, and respiratory rate prior to each opioid administration. 0759 (Given - Provid er: Emily Moe RN)1420 (Given - Provider: Emily Moe RN) senna (SENOKOT) tablet 17.2 mg 17.2 mg, oral, Nightly PRN, constipation, no bowel movement x 24 hours, Starting on Mon04/19/24 at 0313, Until Mon04/19/24 at 1715 Linked Groups Order Group 1: IV Peripheral Line Care (CANCELED) Until discontinued, Starting on Mon04/19/24 at 0314, Until Specified, Insert/Replace: 96 hours for non-flexion, sterile IVs, 48 hours for flexion IVs, and 24 hours for non-sterile field IVs, Blood Draw: With insertion only And sodium chloride 0.9% flush 2.5-10 mLJump to med 2.5-10 mL, intravenous, See admin instructions, Starting on Mon04/19/24 at 0313, Until Mon04/19/24 at 1715, Flush each lumen with a pulsatile motion with a minimum of 2.5 mL before and after use. Please note which lumen(s) have been flushed in comments section. And sodium chloride 0.9% flush 2.5-10 mLJump to med 2.5-10 mL, intravenous, Every 12 hours scheduled, First dose on Mon04/19/24 at 0900, Until Discontinued, Flush each lumen with a pulsatile motion with a minimum of 2.5 mL every 12 hours. Please note which lumen(s) have been flushed in comments section. Group 2: oxyCODONE IR (ROXICODONE) tablet 2.5 mgJump to med 2.5 mg, oral, Every 6 hours PRN, Moderate pain or 4-6 (on the numeric pain scale), Starting on Mon04/19/24 at 0315, Until Mon04/19/24 at 1715, Assess pain, sedation, and respiratory rate prior to each opioid administration. Or oxyCODONE IR (ROXICODONE) tablet 5 mgJump to med 5 mg, oral, Every 6 hours PRN, Severe pain or 7-10 (on the numeric pain scale), Starting on Mon04/19/24 at 0315, Until Mon04/19/24 at 1715, Assess pain, sedation, and respiratory rate prior to each opioid administration. documented in this encounter Care Teams Kiln Pusher Relationship Specialty Start Date End Date Yola Wallsa [address] [place] [address] PCP - General Nurse Practitioner 03/08/24 documented as of this encounter
--- OUTSIDE RECORDS SUMMARY | 2024-05-10 08:29 | XMS_ITS | Encounter Summary ---
Author Organization [facility] Address [address] [place] [address] Care Team Providers Care Dean Of Instruction Name Role Phone Vale Walls Primary Care Provider [phone] Encounter Details Date Type Department Care Team (Late st Contact Info) Description 04/18/2024 Telephone [facility] [address] [place], [place] [phone] Holli Fenton PA [address], [place] [phone] Social History Tobacco Use Types Packs/Day Years [...] on file documented as of this encounter Miscellaneous Notes * Telephone Encounter - GONZÁLEZ Jaramillo - 04/18/2024 9:40 AM EST Spoke with Deborah. Advised we do not prescribe medication. She can talk with Carlene's PCP office or if too severe consider ED. * Telephone Encounter - GONZÁLEZ Jaramillo - 04/18/2024 9:40 AM EST ----- Message from Gunjan Rinaldi sent at 04/18/2024 8:20 AM EST ----- Regarding: please call patient's daughter, in severe pain Deborah, Carlene is in severe pain, asking for medication until injection on Monday Or should she go to ER documented in this encounter Plan of Treatment Upcoming Encounters Date Type Department Care Team (Late st Contact Info) Description 05/17/2024 11:00 AM EST Office Visit [facility] [address] [place] [phone] Psych Tech: Marcia Orlando MD [address] [place] [phone] Yesica Mi PA [address] [place] [phone] 07/11/2024 3:20 PM EDT Follow-Up [facility] A [address] [place] [phone] Piero Hilton MD [address] [place] [phone] documented as of this encounter Visit Diagnoses Not on filedocumented in this encounter Care Teams Dean Of Instruction Relationship Specialty Start Date End Date Vael Walls [address] [place] [phone] PCP - General Nurse Practitioner 03/08/24 documented as of this encounter
--- OUTSIDE RECORDS SUMMARY | 2024-05-10 08:30 | XMS_ITS | Encounter Summary ---
Author Organization [facility] Address [address] [place] [address] Care Team Providers Care Unit Assembler Name Role Phone Vale Walls Primary Care Provider Reason for Visit * Reason Onset Date Comments [facility] [place] [facility] Escalation 03/11/2024 Encounter Details Date Type Department Care Team (Late st Contact Info) Description 03/11/2024 Telephone [facility] [address], [place] [phone] Telephone Intake, Staff [facility] [place] [facility] Escalation Social History Tobacco Use Types Packs/Day Years [...] encounter Miscellaneous Notes * Telephone Encounter - Ameena Nova - 03/11/2024 8:37 AM EST ASHOK Patient was seen in the [facility] ED on Monday03/09/24 with severe low back pain. CT shows sacral alarfractures. She is scheduled on 04/03/23, but ED note states within 2 weeks and daughter states patient is in severe pain. Oxycodone does not help the pain at all. Please call daughter Deborah at [phone] to assist with scheduling, as PAC does not have anything sooner. Thank you documented in this encounter Plan of Treatment Upcoming Encounters Date Type Department Care Team (Late st Contact Info) Description 05/17/2024 11:00 AM EST Office Visit [facility] [address] [place] [phone] [employer]: Marcia Orlando MD [address] [place] [phone] Yesica Mi PA [address] [place] [phone] 07/11/2024 3:20 PM EDT Follow-Up [facility] A [address] [place] [phone] Piero Hilton MD [address] [place] [phone] documented as of this encounter Visit Diagnoses Not on filedocumented in this encounter Care Teams Unit Assembler Relationship Specialty Start Date End Date Vale Walls [address] [place] [address] PCP - General Nurse Practitioner 03/08/24 documented as of this encounter
--- OUTSIDE RECORDS SUMMARY | 2024-05-10 08:31 | XMS_ITS | Encounter Summary ---
Author Organization [facility] Address [address] [place] [address] Care Team Providers Care Phlebotomy Technologist Name Role Phone Vale Walls Primary Care Provider [phone] Reason for Visit * Consultation (Routine) - Authorized Specialty Diagnoses / Procedures Referred By Marie t Referred To Contact Orthopedic Surgery / Orthopaedic Surgery Diagnoses sciatica of lower back shooting down into the right leg , xray at [facility], on going pain but has been getting worse over the past month, H/o surgery in 2007 Procedures Jose Echavarria MD [address] [place] [address] Phone: tel: fax: Referral ID Status Reason Start Date Expiration Date V isits Requested Visits Authorized [id number] Authorized 03/25/2024 03/25/2025 6 6 Encounter Details Date Type Department Care Team (Late st Contact Info) Description 04/11/2024 1:00 PM [facility] Telehealth [facility] [address] [place], [place] [id number] Holli Fenton PA [address] [place] [address] Radiculopathy of lumbar region (Primary Dx); Spinal stenosis of lumbar region with neurogenic claudication; Sacral insufficiency fracture with routine healing Social History Tobacco Use Types Packs/Day Years [...] encounter Progress Notes * GONZÁLEZ Jaramillo - 04/11/2024 1:00 PM EST Follow Up Note REASON FOR VISIT: MRI Follow up HISTORY OF PRESENT ILLNESS: Carlene is an 83 year old female following up today on her lumbar spine MRI results. Continues to struggle with severe pain which radiate down both lower extremities. Initial HPI 03/25/2024 Carlene is an 83-year-old female presenting today for worsening low back, lower extremity pain. The pain began on 02/12/2025. She feels as worsened since onset. Current pain level is an 8/10. Draws pain in her low back across the waistline, currently down the left leg but which she will get painalso down the right leg. Describes quality pain as sharp. Aggravating factors with walking, standing, twisting, going upstairs/downstairs. She will take oxycodone 5 mg which does help provide some mild benefit. Had tried Aleve and Tylenol as well. She was seen in the urgent care on 03/01/2024 and they provided her with physician directed lumbar strengthening exercise and stretches. She was not able to tolerate them and her pain worsened so she went to the emergency department. There she found out she had sacral alar fractures. She then saw Dr. Fady Berg on 03/14/2024 we recommended continuing with appointment with interventional pain management may be consider an injection but to recommend staying away from the fractures during the healing process. General: Sounds well. Psychiatric: Answering questions appropriately. Normal speech pattern. Normal thought content. Neuro: Alert and oriented x3. [The patient was offered telehealth visit and was agreeable to this. The visit is conducted over the telephone from my clinic and the patient's home. There were no other participants other than the patient and myself the provider.] MEDICATIONS: Current Outpatient Medications: acetaminophen (TYLENOL) 500 mg tablet, Take 500 mg by mouth every 6 hours as needed for pain., Disp: , Rfl: aspirin 81 mg chewable tablet, Chew and swallow 1 tablet (81 mg total) by mouth daily. (Patient nottaking: Reported on 03/25/2024), Disp: 20 tablet, Rfl: 0 losartan (COZAAR) 50 mg tablet, Take 50 mg by mouth once a day., Disp: , Rfl: naproxen (NAPROSYN) 500 mg tablet, Take 500 mg by mouth 2 times a day with meals., Disp: , Rfl: oxyCODONE (OXY-IR) 5 mg capsule, Take 5 mg by mouth every 6 hours as needed for pain., Disp: , Rfl: QUEtiapine (SEROquel) 50 mg tablet, Take 50 mg by mouth nightly., Disp: , Rfl: verapamil (CALAN) 80 mg tablet, Take 80 mg by mouth daily., Disp: , Rfl: 11 ALLERGIES:Morphine PHYSICAL EXAM: No direct physical exam took place as this was a telehealth visit. IMAGING: Lumbar Spine MRI 04/03/2024 FINDINGS: For the purposes of this dictation the last well-formed disc space is labeled L5-S1. There is grade1-2 anterolisthesis of L4 on L5 and L5 on S1. There is mild grade 1 retrolisthesis of L1 on L2. These findings are similar to 03/09/2024. There is a superior endplate infraction with mild associated vertebral body height loss at L1. Mild posterior displacement of the posterior-superior cortex into the spinal canal at this level. These findings are similar to 03/09/2024. Multilevel endplate degenerative changes at nearly every level of the lumbosacral spine. Signal abnormality within the disc space at L2-L4 probably on a degenerative basis; correlate with other clinical findings. Mild STIR hype rintense T1 hypointense signal abnormality along the superior endplate at L5 probably developing Schmorl's node. No definite focal bone marrow signal abnormalities within the visualized lumbar and lower thoracic spine. STIR hyperintense T1 hypointense signal abnormality involving the bilateral sacral ala spanning the S1-S2 vertebral bodies consistent with reactive changes secondary to known bilateral minimally displaced sacral fractures. Sacral insufficiency fractures are better detailed on the recent CT reconstruction lumbar spine and inadequately assessed on the current study. If there is continued clinical concern then a MRI sacrum may be obtained for further evaluation. The conus medullaris terminates at L1. At T12-L1 disc osteophyte complex with mild bilateral facet arthropathy and ligamentum flavum thickening without significant spinal canal stenosis and with mild bilateral neural foraminal stenosis. At L1-L2 disc bulge with superimposed disc herniation, bilateral facet arthropathy and ligamentum flavum thickening results in mild spinal canal stenosis. There is mild right and mild to moderate left neural foraminal stenosis. At L2-L3 disc osteophyte complex with ligamentum flavum thickening and bilateral facet arthropathy results in mild encroachment upon the left subarticular zone and with mild spinal canal stenosis. There is mild to moderate left neural foraminal stenosis. At L3-L4 disc osteophyte complex with ligamentum flavum thickening and bilateral facet arthropathy results in moderate spinal canal stenosis and mild crowding of the cauda equina nerve roots. There is moderate bilateral neural foraminal stenosis. At L4-L5 disc osteophyte complex with uncovering of the disc space and superimposed disc herniation, bilateral facet arthropathy and ligamentum flavum thickening results in moderate spinal canal stenosis with mild crowding of the cauda equina nerve roots.. There is severe right and mild to moderateleft neural foraminal stenosis. At L5-S1 disc osteophyte complex with bilateral facet arthropathy results in mild spinal canal stenosis and mild to moderate bilateral neural foraminal stenosis. Mild left facet joint fluid probably on a degenerative basis, correlate with clinical findings. This study is not optimized for evaluation off the retroperitoneal structures. Bilateral probable renal cyst inadequately assessed on the present study but better delineated on the recent CT abdomen/pelvis dated 03/09/2024. IMPRESSION: 1. Signal abnormality within bilateral sacral ala [...] 4. 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 ASSESSMENT: Carlene is an 83-year-old female with worsening low back, lower extreme pain. She does have known acute sacral alar fractures currently. She has been through conservative treatment of Tylenol, Aleve, prednisone taper, oxycodone, massage, physician directed exercises and stretches which actually made the pain worse. She has been to the emergency department, urgent care. Lumbar spine MRI was revi ewed with patient showing multilevel degenerative disc changes, spinal canal stenosis. At this timeI reached out to one of the pain management physicians for review about getting her in for injection. Will call her back once the case is discussed. I performed this visit using the telephone between my location (office) and the patient's location (their home). The patient requested/scheduled this visit. Telehealth participants: Patient. Prior to beginning the telehealth visit, the patient's informed verbal consent to perform this visit using telehealth tools was obtained. I am comfortable that this visit could be performed effectively using telehealth tools. The patient's history and medical records were reviewed. I have informed the patient that in the case they felt that they needed to be seen in person, that an in person visit could be arranged. Time spent: 15 minutes of which greater than 50% was spent on counseling and care coordination. @ga documented in this encounter Plan of Treatment Upcoming Encounters Date Type Department Care Team (Late st Contact Info) Description 05/17/2024 11:00 AM EST Office Visit [facility] [address] [place] [id number] Laser Engineer: Marcia Orlando MD [address] [place] [id number] Yesica Mi PA [address] [place] [id number] 07/11/2024 3:20 PM EDT Follow-Up [facility] [address] [place] [id number] Piero Hilton MD [address] [place] [id number] documented as of this encounter Visit Diagnoses Diagnosis Radiculopathy of lumbar region- Primary Spinal stenosis of lumbar region with neurogenic claudication Sacral insufficiency fracture with routine healing documented in this encounter Care Teams Phlebotomy Technologist Relationship Specialty Start Date End Date Yola Wallsa [address] [place] [address] PCP - General Nurse Practitioner 03/08/24 documented as of this encounter
--- OUTSIDE RECORDS SUMMARY | 2024-05-10 08:31 | XMS_ITS | Referral Summary ---
Author Organization [facility] Address [address] [place] [address] Care Team Providers Care Pipe Layer Name Role Phone Vale Walls Primary Care Provider [phone] Encounters Date Type Department Care Team Description 04/22/2024 8:07 AM EST - 04/22/2024 11:59 PM EST Hospital Encounter [facility] XRay [address] [place] [phone] Piero Hilton MD Pain Discharge Disposition: Home or Self Care () 04/22/2024 8:07 AM EST - 04/22/2024 11:59 PM EST Hospital Encounter [facility] [address] [place] [phone] Piero Hilton MD Radiculopathy of lumbar region (Primary Dx) Discharge Disposition: Home or Self Care () 04/18/2024 5:23 PM EST - 04/19/2024 3:15 PM EST Emergency [facility] Emergency Department [address] [place] [phone] Fermin Hawkins MD Sheridan, Andrew R., MD Jiang, Zhenyang, MD Back pain at L4-L5 level (Primary Dx); Urinary tract infection without hematuria, site unspecified; Acute left-sided low back pain with left-sided sciatica; Impaired mobility Discharge Disposition: Home with Services () 04/18/2024 Telephone [facility] [address] [place] [phone] Holli Fenton PA 04/12/2024 Orders Only [facility] B [address] [place] [address] Holli Fenton PA Radiculopathy of lumbar region (Primary Dx) 04/12/2024 Telephone [facility] B [address] [place] [address] Telephone Intake, Staff PAC Appt Request - Established [place] 04/11/2024 1:00 PM EST Telehealth [facility] [address] [place] [phone] Holli Fenton PA Radiculopathy of lumbar region (Primary Dx); Spinal stenosis of lumbar region with neurogenic claudication; Sacral insufficiency fracture with routine healing 04/03/2024 Orders Only [facility] [address] [address] Holli Fenton PA Radiculopathy, lumbar region 03/25/2024 11:30 AM EST Office Visit [facility] A [address] [place] [phone] Holli Fenton PA Radiculopathy of lumbar region (Primary Dx) 03/14/2024 Orders Only [facility] - External Imaging [address] [place] [address] Radiology, External 03/14/2024 Orders Only [facility] - External Imaging [address] [place] [address] Radiology, External 03/11/2024 Telephone [facility] A [address] [place] [phone] Telephone Intake, Staff PAC [place] ED Escalation 03/09/2024 11:51 AM EST - 03/09/2024 7:06 PM EST Emergency [facility] Emergency Department [address] [place] [phone] Marcia Charles MD Closed fracture of sacrum, unspecified portion of sacrum, initial encounter (HCC) (Primary Dx) Discharge Disposition: Home or Self Care (01) from Last 3 Months Allergies No known active allergies Medications verapamil (CALAN) 80 mg tablet Take 80 mg by mouth daily. 11 07/08/19 18 Active acetaminophen (TYLENOL) 500 mg tablet Take 500 mg by mouth every 6 hours as needed for pain. Active naproxen (NAPROSYN) 500 mg tablet Take 500 mg by mouth 2 times a day with meals. Active losartan (COZAAR) 50 mg tablet Take 50 mg by mouth once a day. Active QUEtiapine (SEROquel) 50 mg tablet Take 50 mg by mouth nightly. Active aspirin 81 mg chewable tablet Chew and swallow 1 tablet (81 mg total) by mouth daily. 20 tablet 07/19/19 18 025 Discontinued(Er ror) oxyCODONE (OXY-IR) 5 mg capsule Take 5 mg by mouth every 6 hours as needed for pain. 025 Discontinued oxyCODONE (OXY-IR) 5 mg capsule Take 1 capsule (5 mg total) by mouth every 8 hours as needed for pain for up to 5 days. Max Daily Amount: 15 mg 15 capsule 04/19/19 25 025 Hospital, Clinic, or Other Facility Administered Medication Ordered Dose Route Frequency Start Date End Date Status lidocaine PF (XYLOCAINE) 1% (10 mg/mL) injection 5 mLIndications:Radi culopathy of lumbar region 5 mL injection One-time injection 04/22/2024 04/22/2024 Ended iohexoL (OMNIPAQUE) 300 mg iodine/mL injection 1 mLIndications:Radi culopathy of lumbar region 1 mL One-time injection 04/22/2024 04/22/2024 Ended 0.9% NaCl injection 1 mLIndications:Radi culopathy of lumbar region 1 mL One-time injection 04/22/2024 04/22/2024 Ended methylPREDNISolone acetate (DEPO-Medrol) injection 80 mgIndications:Radi culopathy of lumbar region 80 mg intraartic One-time injection 04/22/2024 04/22/2024 Ended lidocaine (XYLOCAINE) 2% (20 mg/mL) injection 5 mLIndications:Radi culopathy of lumbar region 5 mL injection One-time injection 04/22/2024 04/22/2024 Ended Active Problems Problem Noted Date Diagnosed Date Back pain at L4-L5 level 04/19/2024 Assessment & Plan (04/19/2024 4:32 AM EST): 83-year-old female with a history of chronic [...] for which she is scheduled to receive a lumbar epidural steroid injection. Examination reveals tenderness in [...] - Lumbar spine x-ray upright Mood disorder 04/19/2024 Assessment & Plan (04/19/2024 4:32 AM EST): Prior history of mood disorder complicated by insomnia managed on Seroquel 50 mg nightly. - Continue Seroquel 50 mg nightly Neuroforaminal stenosis of lumbar spine 04/19/19 25 Assessment & Plan (04/19/2024 4:32 AM EST): -See back pain at L4/L5. Impaired mobility 04/19/2024 Assessment & Plan (04/19/2024 4:32 AM EST): Patient presents with impaired mobility secondary to back pain. -PT consult prior to discharge Insomnia 04/19/2024 Assessment & Plan (04/19/2024 4:32 AM EST): -See mood disorder section Back pain with radiculopathy 04/19/2024 Hypertension 12/29/2008 Assessment & Plan (04/19/2024 4:32 AM EST): Patient with history of hypertension managed on losartan 50 mg daily and verapamil 80 mg daily. - Continue home verapamil 80 mg daily and losartan 50 mg daily. Seizures Resolved Problems Problem Noted Date Diagnosed Date Resolved Date Abnormal urinalysis 04/19/2024 04/19/19 25 Assessment & Plan (04/19/2024 4:32 AM EST): Patient's UA shows 10 white blood cells per high-powered field, 1+ leukocyte esterase, rare bacteria. Patient denies any dysuria. No concern for UTI at this time. CT abdomen pelvis showed no evidence of cystitis or pyelonephritis. Patient received IV ceftriaxone 1 g in the ED. - Follow-up urine culture - Discontinue antibiotics Social History Tobacco Use Types Packs/Day Years [...] on file Sexual Orientation Not on file Last Filed Vital Signs Vital Sign Reading Time Taken Comments Blood Pressure 136/83 04/22/2024 9:00 AM EST Pulse 78 04/22/2024 9:00 AM EST Temperature 36.4 ??C (97.5 ??F) 04/22/2024 8:32 AM ES T Respiratory Rate 18 04/19/2024 11:24 AM EST Oxygen Saturation 97% 04/22/2024 9:00 AM EST Inhaled Oxygen Concentration - - Weight 68 kg (150 lb) 03/09/2024 11:03 AM EST Height 162.6 cm (5' 4 ) 03/09/2024 11:03 AM EST Body Mass Index 25.75 03/09/2024 11:03 AM EST Plan of Treatment Upcoming Encounters Date Type Department Care Team (Late st Contact Info) Description 05/17/2024 11:00 AM EST Office Visit [facility] [address] [place] [address] Pharmaceutical Plant Operator: Marcia Orlando MD [address] [place] [phone] Yesica Mi PA [address] [place] [phone] 07/11/2024 3:20 PM EDT Follow-Up [facility] A [address] [place] [phone] Piero Hilton MD [address] [place] [address] Procedures * Due to [place] state law, this organization might not be sharing negative HIV tests. Procedure Name Priority Date/Time Associated Diagnosis Comments FL C-ARM INJECTION NON-REPORTABLE Routine 04/22/2024 12:19 PM EST Pain [place] NJX DX/THER SBST INTRLMNR LMBR/SAC W/IMG GDN Routine 04/22/2024 8:30 AM EST Radiculopathy of lumbar region XR LUMBAR SPINE 2 OR 3 VIEWS STAT 04/19/2024 5:[address] RECONSTRUCTION LUMBAR SPINE STAT 04/18/2024 9:[address] ABDOMEN PELVIS W CONTRAST STAT 04/18/2024 9:37 PM EST SOLIMAN TOP, URN STAT 04/18/2024 6:43 PM EST UA/CULTURE REFLEX STAT 04/18/2024 6:4 3 PM EST URINALYSIS W/REFLEX TO MICROSCOPIC & CULTURE STAT 04/18/2024 6:43 PM EST URINE CULTURE, ROUTINE STAT 6:43 PM EST COMPREHENSIVE METABOLIC PANEL STAT 04/18/2024 12:18 PM EST CBC AUTO DIFFERENTIAL STAT 04/18/2024 12:18 PM EST MRI LUMBAR SPINE WO CONTRAST Routine 04/03/2024 6:40 AM EST Radiculopathy, lumbar region XR PELVIS 3+ VW STAT 03/09/2024 6:[address] RECONSTRUCTION LUMBAR SPINE STAT 03/09/2024 2:[address] ABDOMEN PELVIS W CONTRAST STAT 03/09/2024 2:37 PM EST COMPREHENSIVE METABOLIC PANEL STAT 03/09/2024 12:43 PM EST CBC AUTO DIFFERENTIAL STAT 03/09/2024 12:43 PM EST from Last 3 Months Results * Due to [place] state law, this organization might not be sharing negative HIV tests. * FL C-Arm Injection Spine NONREPORTABLE (04/22/2024 12:19 PM EST) Narrative IMAGING - 04/22/2024 12:19 PM EST This procedure does not contain a result. Please see the surgeon's note for official report. us Piero ALICIA FLUOROSCOPY PROCEDURES Final Result IMAGING * NH NJX DX/THER SBST INTRLMNR LMBR/SAC W/IMG GDN [...] Patient's understanding of procedure matches consent: Yes [place] Protocol: ? Procedure consent matches procedure scheduled: [...] outpatient to the ambulatory injection suite at [facility]. ? Vital signs were monitored before and [...] lateral fluoroscopic images. ??A radiopaque epidural catheter ([employer] LabsaCath, [place]) was advanced through the epidural needle [...] MD IN CLINIC/BEDSIDE ORDERABLES Fin al Result * X-Ray Lumbar Spine 2 or 3 [...] obtain the completed interpretation. ? Workstation ID: [id number] Narrative 04/19/2024 5:26 AM EST COMPARISON: CT lumbar spine 04/18/2024. ??Lumbar spine MRI 04/03/2024. FINDINGS AND Resulting Agency Comment [id number] Procedure Note Clem Holguin, DO - 04/19/2024 COMPARISON: CT lumbar spine 04/18/2024. Lumbar spine MRI 04/03/2024. FINDINGS AND IMPRESSION: The bones are diffusely demineralized. Unchanged dextroconvex scoliosisof the lumbar spine and advanced multilevel degenerative changes ascharacterized on prior MRI. Unchanged degenerative grade 1anterolisthesis at L4-L5. Chronic compression deformity of the K4xrhlsadat body. Unchanged subacute sacral insufficiency fractures. If this radiology report contains a blank impression section, it is anincomplete radiology report. Please contact the interpreting radiologistor applicable radiology division as soon as possible to obtain thecompleted interpretation. Workstation ID: [id number] Elvis Tran MD IMG XR PROCEDURES Final Re sult * CT Reconstruction of Lumbar Spine (04/18/2024 9:37 PM EST) Only the most recent of2 resultswithin the time period is included. Anatomical Region Laterality Modality Spine, C-spine Computed Tomogra phy 04/18/2024 10:1 2 PM EST Impressions 04/18/2024 10:15 PM EST No acute abnormality. If this radiology report contains a blank impression section, it is an incomplete radiology report. ??Please contact the interpreting radiologist or applicable radiology division as soon as possible to obtain the completed interpretation. ? Workstation ID: [id number] Up-to-date CT equipment and radiation dose reduction techniques were employed. CTDIvol: 14.7 mGy. DLP: 672 mGy-cm. ??The following accession numbers are related to this dose report [id number]: [id number] Up-to-date CT equipment and radiation dose reduction techniques were employed. CTDIvol: 14.7 mGy. DLP: 672 mGy-cm. ??The following accession numbers are related to this dose report [id number]: [id number] Narrative 04/18/2024 10:15 PM EST COMPARISON: 03/09/2024. [...] described sacral insufficiency fractures. Resulting Agency Comment [id number] Procedure Note Harpreet Estrada MD - 04/18/2024 [...] possible to obtain thecompleted interpretation. Workstation ID: [id number] Up-to-date CT equipment and radiation dose reduction techniques wereemployed. CTDIvol: 14.7 mGy. DLP: 672 mGy-cm. The following accessionnumbers are related to this dose report [id number]: [id number] Up-to-date CT equipment and radiation dose reduction techniques wereemployed. CTDIvol: 14.7 mGy. DLP: 672 mGy-cm. The following accessionnumbers are related to this dose report [id number]: [id number] Fermin Hawkins MD IM CT PROCEDURES Final Result * CT Abd Pelvis W Contrast (04/18/2024 9:37 PM EST) Only the most recent of2 resultswithin the time period is included. Anatomical Region Laterality Modality Body Computed Tomogra phy 04/18/2024 10:1 2 PM EST Impressions 04/18/2024 10:15 PM EST No acute abnormality. If this radiology report contains a blank impression section, it is an incomplete radiology report. ??Please contact the interpreting radiologist or applicable radiology division as soon as possible to obtain the completed interpretation. ? Workstation ID: [id number] Up-to-date CT equipment and radiation dose reduction techniques were employed. CTDIvol: 14.7 mGy. DLP: 672 mGy-cm. ??The following accession numbers are related to this dose report [id number]: [id number] Up-to-date CT equipment and radiation dose reduction techniques were employed. CTDIvol: 14.7 mGy. DLP: 672 mGy-cm. ??The following accession numbers are related to this dose report [id number]: [id number] Narrative 04/18/2024 10:15 PM EST COMPARISON: 03/09/2024. [...] described sacral insufficiency fractures. Resulting Agency Comment [id number] Procedure Note Harpreet Estrada MD - 04/18/2024 [...] possible to obtain thecompleted interpretation. Workstation ID: [id number] Up-to-date CT equipment and radiation dose reduction techniques wereemployed. CTDIvol: 14.7 mGy. DLP: 672 mGy-cm. The following accessionnumbers are related to this dose report [id number]: [id number] Up-to-date CT equipment and radiation dose reduction techniques wereemployed. CTDIvol: 14.7 mGy. DLP: 672 mGy-cm. The following accessionnumbers are related to this dose report [id number]: [id number] us Fermin Hawkins MD IMG CT PROCEDURES Final Result * [place] Top, Urine (04/18/2024 6:43 PM EST) Pathologist [facility] Extra Tube Hold for add-ons. 04/18/2024 11:05 PM EST [facility] Comment:Auto resulted. Urine Urine specimen collection, clean catch / Unknown Non-Blood Collection / Unknown 04/18/2024 6:43 PM EST 04/18/2024 6:43 PM EST us Fermin Hawkins MD LAB URINE ORDERABLES Final Resul t [facility] [address] [place] [id number], * (ABNORMAL) Urinalysis W/Reflex to Microscopic & Culture (04/18/2024 6:43 PM EST) Pathologist [facility] Color, Urine Yellow Colorless, Light Yellow, Yellow, Dark Yellow 04/18/2024 7:03 PM EST [facility] Clarity, Urine Slightly Cloudy(A) Clear 04/18/2024 7:03 PM EST [facility] Specific [place], Urine 1.025 1.005 - 1.030 04/18/2024 7:03 PM EST [facility] pH, Urine 5.0 4.6 - 8.0 04/18/2024 7:03 PM EST [facility] Protein, Urine Negative Negative 04/18/2024 7:03 PM EST [facility] Glucose, Urine Negative Negative 04/18/2024 7:03 PM EST [facility] Ketones, Urine Negative Negative 04/18/2024 7:03 PM EST [facility] Bilirubin, Urine Negative Negative 04/18/2024 7:03 PM EST [facility] Blood, Urine Negative Negative 04/18/2024 7:03 PM EST [facility] Nitrite, Urine Negative Negative 04/18/2024 7:03 PM EST [facility] Urobilinogen, Urine Positive(A) Normal 04/18/2024 7:03 PM EST [facility] Leukocyte Esterase, Urine 1+(A) Negative 04/18/2024 7:03 PM EST [facility] WBC, Urine 10(H) 0 - 2 /HPF 04/18/2024 7:03 PM EST [facility] RBC, Urine 2 0 - 2 /HPF 04/18/2024 7:03 PM EST [facility] Hyaline Casts, Urine 2 0 - 2 /LPF 04/18/2024 7:03 PM EST [facility] Squamous Epithelial Cells, Urine 4 /HPF 04/18/2024 7:03 PM EST [facility] Bacteria, Urine Rare(A) None /HPF /HPF 04/18/2024 7:03 PM EST [facility] Mucus, Urine Rare /LPF 04/18/2024 7:03 PM EST [facility] Urine Urine specimen collection, clean catch / Unknown Non-Blood Collection / Unknown 04/18/2024 6:43 PM EST 04/18/2024 6:43 PM EST us Fermin Hawkins MD LAB URINE ORDERABLES Final Resul t [facility] [address] [place] [address], * Urine Culture, Routine (04/18/2024 6:43 PM EST) Culture Mixed genital carmelita isolated. These superficial bacteria are not indicative of a urinary tract infection. No further organism identification is warranted on this specimen. 04/20/2024 1:03 AM EST [employer] Urine Urine specimen collection, clean catch / Unknown Non-Blood Collection / Unknown 04/18/2024 6:43 PM EST 04/18/2024 7:02 PM EST Dany VERDE - 04/20/2024 1:03 AM EST [facility] Received Date: MICRO NUMBER: [id number] SPECIMEN QUALITY: Adequate SOURCE: URINE CLEAN CATCH STATUS: FINAL If clinically indicated, recollect clean-catch, mid-stream urine and transfer immediately to Urine Culture Transport Tube. us Elvis Tran MD LAB MICROBIOLOGY - GENERAL ORDERABLES Final Result [facility] [address], [place] [address], [place] [phone] [employer] [facility] [address], [place] [address], * (ABNORMAL) CBC Auto Differential (04/18/2024 12:18 PM EST) Only the most recent of2 resultswithin the time period is included. WBC 9.0 3.8 - 10.8 10*3/uL 04/18/2024 12:40 PM EST [facility] RBC 4.45 3.80 - 5.10 10*6/uL 04/18/2024 12:40 PM EST [facility] Hemoglobin 12.7 11.7 - 15.5 g/dL 04/18/2024 12:40 PM EST [facility] Hematocrit 38.4 35.0 - 45.0 % 04/18/2024 12:40 PM EST [facility] MCV 86.3 80.0 - 100.0 fL 04/18/2024 12:40 PM EST [facility] MCH 28.5 27.0 - 33.0 pg 04/18/2024 12:40 PM EST [facility] MCHC 33.1 32.0 - 36.0 g/dL 04/18/2024 12:40 PM [facility] RDW 14.0 11.0 - 15.0 % 04/18/2024 12:40 PM [facility] Platelets 219 140 - 400 10*3/uL 04/18/2024 12:40 PM [facility] MPV 8.9 7.5 - 12.5 fL 04/18/2024 12:40 PM [facility] Neutrophil % 69.1 % 04/18/2024 12:40 PM [facility] Immature Grans % 0.4 0.0 - 0.9 % 04/18/2024 12:40 PM [facility] Lymphocyte % 18.8 % 04/18/2024 12:40 PM [facility] Monocyte % 8.3 % 04/18/2024 12:40 PM [facility] Eosinophil % 2.8 % 04/18/2024 12:40 PM [facility] Basophil % 0.6 % 04/18/2024 12:40 PM [facility] Neutrophil # 6.21 1.50 - 7.80 10*3/uL 04/18/2024 12:40 PM [facility] Immature Grans # 0.04(H) <=0.03 10*3/uL 04/18/2024 12:40 PM [facility] Lymphocyte # 1.70 0.85 - 3.90 10*3/uL 04/18/2024 12:40 PM [facility] Monocyte # 0.80 0.20 - 0.95 10*3/uL 04/18/2024 12:40 PM [facility] Eosinophil # 0.30 0.02 - 0.50 10*3/uL 04/18/2024 12:40 PM EST [facility] Basophil # 0.10 0.00 - 0.20 10*3/uL 04/18/2024 12:40 PM EST [facility] nRBC % 0.0 /100 WBCs 04/18/2024 12:40 PM EST [facility] nRBC # <0.01 <0.01 10*3/uL 04/18/2024 12:40 PM EST [facility] Blood Structure of peripheral vein / Unknown Venipuncture / Unknown 04/18/2024 12:18 PM EST 04/18/2024 12:33 PM EST us Fermin Hawkins MD LAB BLOOD ORDERABLES Final Resul t [facility] [address] [place] [address], * (ABNORMAL) Comprehensive Metabolic Panel (If age > 70) (04/18/2024 12:18 PM EST) Only the most recent of2 resultswithin the time period is included. NA 138 135 - 145 mmol/L 04/18/2024 1:35 PM EST [facility] K 4.2 3.5 - 5.3 mmol/L 04/18/2024 1:35 PM EST [facility] Cl 107 98 - 107 mmol/L 04/18/2024 1:35 PM EST [facility] CO2 19(L) 22 - 32 mmol/L 04/18/2024 1:35 PM EST [facility] Anion Gap 12 5 - 15 04/18/2024 1:35 PM EST [facility] Glucose 99 65 - 99 mg/dL 04/18/2024 1:35 PM EST [facility] Creatinine 0.89 0.50 - 1.20 mg/dL 04/18/2024 1:35 PM EST [facility] Calcium 9.3 8.6 - 10.5 mg/dL 04/18/2024 1:35 PM [facility] Total Protein 6.8 6.0 - 8.0 g/dL 04/18/2024 1:35 PM [facility] Albumin 3.8 3.5 - 5.2 g/dL 04/18/2024 1:35 PM [facility] Bilirubin, Total 0.5 0.2 - 1.2 mg/dL 04/18/2024 1:35 PM [facility] Alkaline Phosphatase 181(H) 35 - 129 U/L 04/18/2024 1:35 PM [facility] AST 25 10 - 40 U/L 04/18/2024 1:35 PM [facility] ALT 9(L) 10 - 40 U/L 04/18/2024 1:35 PM [facility] BUN 24(H) 7 - 23 mg/dL 04/18/2024 1:35 PM [facility] eGFR 64 >=60 mL/min/1. 73m2 04/18/2024 1:35 PM [facility] Comment:The estimated glomer ular filtration [...] 2.1 - 4.2 g/dL 04/18/2024 1:35 PM [facility] A/G Ratio 1.3(L) 1.5 - 3.0 04/18/2024 1:35 PM EST [facility] Blood Structure of peripheral vein / Unknown Venipuncture / Unknown 04/18/2024 12:18 PM EST 04/18/2024 12:33 PM EST us Fermin Hawkins MD LAB BLOOD ORDERABLES Final Resul t [facility] [address] [place] [address], [place] * MRI Lumbar Spine WO Contrast (04/03/2024 6:40 AM EST) Anatomical Region Laterality Modality Spine, L-spine Magnetic Resonan ce 04/05/2024 3:47 PM EST Impressions 04/06/2024 11:04 AM EST 1. ??Signal abnormality within bilateral sacral ala at S1-S2 vertebral bodies probably reactive changes secondary to known minimally displaced sacral ala insufficiency fractures. ??Osseous details are better depicted on the CT reconstruction lumbar spine dated 03/09/2024. ??This region is inadequately assessed on the present study. ??Recommend clinical correlation and short interval follow-up imaging with dedicated MRI of the sacrum to document expected evolution and to exclude underlying pathology.* 2. ??Minimal signal abnormality along the superior endplate at L5 probably on a degenerative basis. ??Multilevel additional endplate degenerative changes. ?? 3. ??Multilevel degenerative changes most pronounced at L3-L4 and L4-L5 with moderate spinal canal stenosis and mild crowding of the cauda equina nerve roots. ??Multilevel neural foraminal stenosis including severe right neural foraminal stenosis at L4-L5.* 4. ??Probable chronic compression deformity at L1. *[place] critical alert A(n) [place] actionable finding has been communicated to the ordering or responsible provider via the [employer] system on 04/06/2024 11:04 AM. ??Receipt of this communication by the responsible provider will be documented in [employer] Findings upon receiving acknowledgement if applicable, Message ID [id number]. If this radiology report contains a blank impression section, it is an incomplete radiology report. ??Please contact the interpreting radiologist or applicable radiology division as soon as possible to obtain the completed interpretation. ? Workstation ID: [id number] Narrative 04/06/2024 11:04 AM EST EXAMINATION: MRI of lumbar spine without contrast TECHNIQUE: Multiplanar and multisequence MR imaging of lumbar spine performed without intravenous contrast administration. Sequences obtained include, Sagittal plane: T1, T2 and STIR Axial plane: T1 and T2 at selected levels CLINICAL INFORMATION: M54.16 - I10 - Radiculopathy, lumbar region COMPARISON: ??CT reconstruction lumbar spine 03/09/2024 FINDINGS: For the purposes of this dictation the last well-formed disc space is labeled L5-S1. ??There is grade 1-2 anterolisthesis of L4 on L5 and L5 on S1. ??There is mild grade 1 retrolisthesis of L1 on L2. ??These findings are similar to 03/09/2024. ??There is a superior endplate infraction with mild associated vertebral body height loss at L1. ??Mild posterior displacement of the posterior-superior cortex into the spinal canal at this level. ??These findings are similar to 03/09/2024. ??Multilevel endplate degenerative changes at nearly every level of the lumbosacral spine. ??Signal abnormality within the disc space at L2-L4 probably on a degenerative basis; correlate with other clinical findings. ??Mild STIR hyperintense T1 hypointense signal abnormality along the superior endplate at L5 probably developing Schmorl's node. No definite focal bone marrow signal abnormalities within the visualized lumbar and lower thoracic spine. ??STIR hyperintense T1 hypointense signal abnormality involving the bilateral sacral ala spanning the S1-S2 vertebral bodies consistent with reactive changes secondary to known bilateral minimally displaced sacral fractures. ??Sacral insufficiency fractures are better detailed on the recent CT reconstruction lumbar spine and inadequately assessed on the current study. ??If there is continued clinical concern then a [...] thickening results in mild spinal canal stenosis. ??There is mild right and mild to moderate left neural foraminal stenosis. At L2-L3 disc osteophyte complex with ligamentum flavum thickening and bilateral facet arthropathy results in mild encroachment upon the left subarticular zone and with mild spinal canal stenosis. ??There is mild to moderate left neural foraminal stenosis. At L3-L4 disc osteophyte complex with ligamentum flavum thickening and bilateral facet arthropathy results in moderate spinal canal stenosis and mild crowding of the cauda equina nerve roots. ??There is moderate bilateral neural foraminal stenosis. At L4-L5 disc osteophyte complex with uncovering of the disc space and superimposed disc herniation, bilateral facet arthropathy and ligamentum flavum thickening results in moderate spinal canal stenosis with mild crowding of the cauda equina nerve roots.. ??There is severe right and mild to moderate left neural foraminal stenosis. At L5-S1 disc osteophyte complex with bilateral facet arthropathy results in mild spinal canal stenosis and mild to moderate bilateral neural foraminal stenosis. ??Mild left facet joint fluid probably on a degenerative basis, correlate with clinical findings. This study is not optimized for evaluation off the retroperitoneal structures. ??Bilateral probable renal cyst inadequately assessed on the present study but better delineated on the recent CT abdomen/pelvis dated 03/09/2024. Resulting Agency Comment [id number] Procedure Note Ree Blanton MD - 04/06/2024 EXAMINATION: MRI of lumbar spine without contrast TECHNIQUE: Multiplanar and multisequence MR imaging of lumbar spine performed withoutintravenous contrast administration. Sequences obtained include, Sagittal plane: T1, T2 and STIR Axial plane: T1 and T2 at selected levels CLINICAL INFORMATION: M54.16 - I10 - Radiculopathy, lumbar region COMPARISON: CT reconstruction lumbar spine 03/09/2024 FINDINGS: For the purposes of this dictation the last well-formed disc space islabeled L5- S1. There is grade 1-2 anterolisthesis of L4 on L5 and L5 onS1. There is mild grade 1 retrolisthesis of L1 on L2. These findings aresimilar to 03/09/2024. There is a superior endplate infraction with mildassociated vertebral body height loss at L1. Mild posterior displacementof the posterior-superior cortex into the spinal canal at this level.These findings are similar to 03/09/2024. Multilevel endplatedegenerative changes at nearly every level of the lumbosacral spine.Signal abnormality within the disc space at L2-L4 probably on adegenerative basis; correlate with other clinical findings. Mild STIRhyperintense T1 hypointense signal abnormality along the superior endplateat L5 probably developing Schmorl's node. No definite focal bone marrow signal abnormalities within the visualizedlumbar and lower thoracic spine. STIR hyperintense T1 hypointense signalabnormality involving the bilateral sacral ala spanning the S1-[id number] bodies consistent with reactive changes secondary to knownbilateral minimally displaced sacral fractures. Sacral insufficiencyfractures are better detailed on the recent CT reconstruction lumbar spineand inadequately assessed on the current study. If there is continuedclinical concern then a MRI sacrum may be obtained for furtherevaluation. The conus medullaris terminates at L1. At T12-L1 disc osteophyte complex with mild bilateral facet arthropathyand ligamentum flavum thickening without significant spinal canal stenosisand with mild bilateral neural foraminal stenosis. At L1-L2 disc bulge with superimposed disc herniation, bilateral facetarthropathy and ligamentum flavum thickening results in mild spinal canalstenosis. There is mild right and mild to moderate left neural foraminalstenosis. At L2-L3 disc osteophyte complex with ligamentum flavum thickening andbilateral facet arthropathy results in mild encroachment upon the leftsubarticular zone and with mild spinal canal stenosis. There is mild tomoderate left neural foraminal stenosis. At L3-L4 disc osteophyte complex with ligamentum flavum thickening andbilateral facet arthropathy results in moderate spinal canal stenosis andmild crowding of the cauda equina nerve roots. There is moderatebilateral neural foraminal stenosis. At L4-L5 disc osteophyte complex with uncovering of the disc space andsuperimposed disc herniation, bilateral facet arthropathy and ligamentumflavum thickening results in moderate spinal canal stenosis with mildcrowding of the cauda equina nerve roots.. There is severe right and mildto moderate left neural foraminal stenosis. At L5-S1 disc osteophyte complex with bilateral facet arthropathy resultsin mild spinal canal stenosis and mild to moderate bilateral neuralforaminal stenosis. Mild left facet joint fluid probably on adegenerative basis, correlate with clinical findings. This study is not optimized for evaluation off the retroperitonealstructures. Bilateral probable renal cyst inadequately assessed on thepresent study but better delineated on the recent CT abdomen/pelvis dated105/10/2023. IMPRESSION: 1. Signal abnormality within bilateral sacral ala at S1-S2 vertebralbodies probably reactive changes secondary to known minimally displacedsacral ala insufficiency fractures. Osseous details are better depictedon the CT reconstruction lumbar spine dated 03/09/2024. This region isinadequately assessed on the present study. Recommend clinicalcorrelation and short interval follow-up imaging with dedicated MRI of thesacrum to document expected evolution and to exclude underlyingpathology.* 2. Minimal signal abnormality along the superior endplate at L5 probablyon a degenerative basis. Multilevel additional endplate degenerativechanges. 3. Multilevel degenerative changes most pronounced at L3-L4 and L4-L5with moderate spinal canal stenosis and mild crowding of the cauda equinanerve roots. Multilevel neural foraminal stenosis including severe rightneural foraminal stenosis at L4- L5.* 4. 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 *[place] critical alert A(n) [place] actionable finding has been communicated to the ordering orresponsible provider via the [employer] system on04/06/2024 11:04 AM. Receipt of this communication by the responsibleprovider will be documented in [employer] Findings uponreceiving acknowledgement if applicable, Message ID [id number]. If this radiology report contains a blank impression section, it is anincomplete radiology report. Please contact the interpreting radiologistor applicable radiology division as soon as possible to obtain thecompleted interpretation. Workstation ID: [id number] Holli CLAUDIO IMPaul MRI PROCEDURES Final Resul t * X-Ray Pelvis 3+ Views (03/09/2024 6:40 PM EST) Anatomical Region Laterality Modality Body, Pelvis Computed Radiogr aphy 03/09/2024 6:58 PM EST Impressions 03/09/2024 7:00 PM EST Alignment of the sacral alar fractures is stable. There are no new findings. Intravenous contrast opacifies the bladder. If this radiology report contains a blank impression section, it is an incomplete radiology report. ??Please contact the interpreting radiologist or applicable radiology division as soon as possible to obtain the completed interpretation. ? Workstation ID: [id number] Narrative 03/09/2024 7:00 PM EST COMPARISON: CT from earlier in the same day. FINDINGS AND Resulting Agency Comment [id number] Procedure Note Harpreet Estrada MD - 03/09/2024 COMPARISON: CT from earlier in the same day. FINDINGS AND IMPRESSION: Alignment of the sacral alar fractures is stable. There are no newfindings. Intravenous contrast opacifies the bladder. If this radiology report contains a blank impression section, it is anincomplete radiology report. Please contact the interpreting radiologistor applicable radiology division as soon as possible to obtain thecompleted interpretation. Workstation ID: [id number] Marcia Charles MD IMG XR PROCEDURES Final Resu lt from Last 3 Months Insurance Advance Directives * Full Code (Latest Code Status on File) Date Activated Date Inactivated Comments 04/19/2024 3:13 AM 04/19/2024 5:15 PM * Presumed Full Code Date Activated Date Inactivated Comments 04/19/2024 12:08 AM 04/19/2024 3:13 AM * Presumed Full Code Date Activated Date Inactivated Comments 07/18/2017 1:44 AM 07/18/2017 6:19 PM Care Teams Pipe Layer Relationship Specialty Start Date End Date Vale Walls [address] [place] [address] PCP - General Nurse Practitioner 03/08/24
--- OUTSIDE RECORDS SUMMARY | 2024-05-10 08:31 | XMS_ITS | Encounter Summary ---
Author Organization [facility] Address [address] [place] [address] Care Team Providers Care Electronic Train Control Technician Name Role Phone Vale Walls Primary Care Provider [phone] Reason for Visit * Reason Onset Date Comments PAC Appt Request - Established [place] 04/12/19 Encounter Details Date Type Department Care Team (Late st Contact Info) Description 04/12/2024 Telephone [facility] [address] [phone] Telephone Intake, Staff PAC Appt Request - Established [place] Social History Tobacco Use Types Packs/Day Years [...] * Telephone Encounter - GONZÁLEZ Jaramillo - 04/12/2024 12:41 PM EST Told Carlene yesterday I would call her back once the physician reviewed her case. * Telephone Encounter - Tasha Ayala - 04/12/2024 12:19 PM EST Carlene is a patient of Robb Ho and her daughter Deborah was told ivanna 04-11-24 she would be contacted about booking an injection for her mom. Please contact Deborah at [phone]. 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
--- OUTSIDE RECORDS SUMMARY | 2024-05-10 08:31 | XMS_ITS | Clinical Summary ---
Author Organization [facility] Address [address] [place] [address] Care Team Providers [employer] Name Role Phone Vale Walls Primary Care Provider [phone] Allergies No known active allergies Medications verapamil [...] nightly Neuroforaminal stenosis of lumbar spine 04/19/19 Assessment & Plan (04/19/2024 4:32 AM EST): [...] - Follow-up urine culture - Discontinue antibiotics Encounters Date Type Department Care Team Description 04/22/2024 8:07 AM EST - 04/22/2024 11:59 PM EST Hospital Encounter [facility] XRay [address] [place] [address]19 Piero Hilton MD Pain Discharge Disposition: Home or Self Care () 04/22/2024 8:07 AM EST - 04/22/2024 11:59 PM EST Hospital Encounter [facility] Spine Procedure Clinic [address] [place] [address] 11935 Piero Hilton MD Radiculopathy of lumbar region (Primary Dx) Discharge Disposition: Home or Self Care () 04/18/2024 5:23 PM EST - 04/19/2024 3:15 PM EST Emergency [facility] Emergency Department [address] [place] [phone] Fermin Hawkins MD Sheridan, Andrew R., MD Jiang, Zhenyang, MD Back pain at L4-L5 level (Primary Dx); Urinary tract infection without hematuria, site unspecified; Acute left-sided low back pain with left-sided sciatica; Impaired mobility Discharge Disposition: Home with Services (06) 04/18/2024 Telephone [facility] [address] [place] [address]118 Holli Fenton PA 04/12/2024 Orders Only [facility] [address] [place] [address] 19085 Holli Fenton PA Radiculopathy of lumbar region (Primary Dx) 04/12/2024 Telephone [facility] [address] [place] [address] [phone] Telephone Intake, Staff PAC Appt Request - Established [place] 04/11/2024 1:00 PM EST Telehealth [facility] [address] [place] [phone] Holli Fenton PA Radiculopathy of lumbar region (Primary Dx); Spinal stenosis of lumbar region with neurogenic claudication; Sacral insufficiency fracture with routine healing 04/03/2024 Orders Only [facility] [address] [address] Holli Fenton PA Radiculopathy, lumbar region 03/25/2024 11:30 AM EST Office Visit [facility] [address] [place] [address]897 Holli Fenton PA Radiculopathy of lumbar region (Primary Dx) 03/14/2024 Orders Only [facility] - External Imaging [address] [place] [phone] Radiology, External 03/14/2024 Orders Only [facility] - External Imaging [address] [place] [address]38 Radiology, External 03/11/2024 Telephone [facility] [address] [place] [address] Telephone Intake, Staff PAC [place] ED Escalation 03/09/2024 11:51 AM EST - 03/09/2024 7:06 PM EST Emergency [facility] Emergency Department [address] [place] [address] Marcia Charles MD Closed fracture of sacrum, unspecified portion of sacrum, initial encounter ([facility]) (Primary Dx) Discharge Disposition: Home or Self Care (01) from Last 3 Months Social History Tobacco Use Types Packs/Day Years [...] Description 05/17/2024 11:00 AM EST Office Visit [facility] Rheumatology Clinic [address] [place] [address] Management Intern: Marcia Orlando MD [address] [place] [phone] Yesica Mi PA [address] [place] [address] 07/11/2024 3:20 PM EDT Follow-Up [facility] [address] [place] [address] Piero Hilton MD [address] [place] [address] Health Maintenance Due Date Last Done Comments Zoster Vaccines (1 of 2) 1988 DTaP,Tdap,and Td Vaccines (1 - Tdap) 10/05/2016 10/04/2016, 06/07/2005, 07/28/1993 Alcohol/Substance Use Screening 03/20/2024 Depression Screening and Follow-Up 03/20/2024 Health Care Proxy Review 03/20/2024 Social Drivers of Health Annual Screening 03/20/2024 COVID-19 Vaccine ( season) 2024 01/28/2024, 12/24/2022, 01/10/2022, Additional history exists Basic Metabolic Panel 04/18/2025 04/18/2024 , 03/09/2024, 07/18/2017, Additional history exists Pneumococcal Vaccine: 50+ Years Completed 12/24/2022, 06/11/2014, 06/07/2005 Influenza Vaccine Completed 01/28/2024, , 01/03/2022, Additional history exists RSV Vaccine (60+ years old and patients) Completed 01/28/2024 Osteoporosis Screening Completed 03/22/2024 Hepatitis B Vaccines Aged Out No long er eligible based on patient's age to complete this topic Procedures * Due to [place] state law, this organization might not be sharing negative HIV tests. Procedure Name Priority Date/Time Associated Diagnosis Comments [place] C-ARM INJECTION NON-REPORTABLE Routine 04/22/2024 12:19 PM EST Pain MD NJX DX/THER SBST INTRLMNR LMBR/SAC W/IMG GDN [...] Last 3 Months Results * Due to [place] state law, this organization might not be sharing negative HIV tests. * FL C-Arm Injection Spine NONREPORTABLE (04/22/2024 12:19 PM EST) Narrative IMAGING - 04/22/2024 12:19 PM EST This procedure does not contain a result. Please see the surgeon's note for official report. us Piero ALICIA FLUOROSCOPY PROCEDURES Final Result IMAGING * MD NJX DX/THER SBST INTRLMNR LMBR/SAC W/IMG GDN [...] Patient's understanding of procedure matches consent: Yes [place] Protocol: ? Procedure consent matches procedure scheduled: [...] outpatient to the ambulatory injection suite at [facility]. ? Vital signs were monitored before and [...] lateral fluoroscopic images. ??A radiopaque epidural catheter (NoeaCatjoe, [place]) was advanced through the epidural needle [...] obtain the completed interpretation. ? Workstation ID: [id number] Narrative 04/19/2024 5:26 AM EST COMPARISON: CT lumbar spine 04/18/2024. ??Lumbar spine MRI 04/03/2024. FINDINGS AND Resulting Agency Comment [id number] Procedure Note Clem Holguin DO - 04/19/2024 COMPARISON: CT lumbar spine 04/18/2024. Lumbar spine MRI 04/03/2024. FINDINGS AND IMPRESSION: The bones are diffusely demineralized. Unchanged dextroconvex scoliosisof the lumbar spine and advanced multilevel degenerative changes ascharacterized on prior MRI. Unchanged degenerative grade 1anterolisthesis at L4-L5. Chronic compression deformity of the T0tbkknyqkc body. Unchanged subacute sacral insufficiency fractures. If this radiology report contains a blank impression section, it is anincomplete radiology report. Please contact the interpreting radiologistor applicable radiology division as soon as possible to obtain thecompleted interpretation. Workstation ID: [id number] us Elvis Tran MD IMG XR PROCEDURES [...] obtain the completed interpretation. ? Workstation ID: [id number] Up-to-date CT equipment and radiation dose reduction techniques were employed. CTDIvol: 14.7 mGy. DLP: 672 mGy-cm. ??The following accession numbers are related to this dose report [id number]: [id number] Up-to-date CT equipment and radiation dose reduction techniques were employed. CTDIvol: 14.7 mGy. DLP: 672 mGy-cm. ??The following accession numbers are related to this dose report [id number]: [id number] Narrative 04/18/2024 10:15 PM EST COMPARISON: 03/09/2024. [...] described sacral insufficiency fractures. Resulting Agency Comment [id number] Procedure Note Harpreet Estrada MD - 04/18/2024 [...] possible to obtain thecompleted interpretation. Workstation ID: [id number] Up-to-date CT equipment and radiation dose reduction techniques wereemployed. CTDIvol: 14.7 mGy. DLP: 672 mGy-cm. The following accessionnumbers are related to this dose report [id number]: [id number] Up-to-date CT equipment and radiation dose reduction techniques wereemployed. CTDIvol: 14.7 mGy. DLP: 672 mGy-cm. The following accessionnumbers are related to this dose report [id number]: [id number] us Fermin Hawkins MD [facility] [place] PROCEDURES Final Result * CT Abd [...] obtain the completed interpretation. ? Workstation ID: [id number] Up-to-date CT equipment and radiation dose reduction techniques were employed. CTDIvol: 14.7 mGy. DLP: 672 mGy-cm. ??The following accession numbers are related to this dose report [id number]: [id number] Up-to-date CT equipment and radiation dose reduction techniques were employed. CTDIvol: 14.7 mGy. DLP: 672 mGy-cm. ??The following accession numbers are related to this dose report [id number]: [id number] Narrative 04/18/2024 10:15 PM EST COMPARISON: 03/09/2024. [...] described sacral insufficiency fractures. Resulting Agency Comment [id number] Procedure Note Harpreet Estrada MD - 04/18/2024 [...] possible to obtain thecompleted interpretation. Workstation ID: [id number] Up-to-date CT equipment and radiation dose reduction techniques wereemployed. CTDIvol: 14.7 mGy. DLP: 672 mGy-cm. The following accessionnumbers are related to this dose report [id number]: [id number] Up-to-date CT equipment and radiation dose reduction techniques wereemployed. CTDIvol: 14.7 mGy. DLP: 672 mGy-cm. The following accessionnumbers are related to this dose report [id number]: [id number] us Fermin Hawkins MD IMG CT PROCEDURES Final Result * [place] Top, Urine (04/18/2024 6:43 PM EST) Extra Tube Hold for add-ons. 04/18/2024 11:05 PM EST [facility] Comment:Auto resulted. Urine Urine specimen collection, clean catch / Unknown Non-Blood Collection / Unknown 04/18/2024 6:43 PM EST 04/18/2024 6:43 PM EST us Fermin Hawkins MD LAB URINE ORDERABLES Final Resul t [facility] [address] [place] [id number], * (ABNORMAL) Urinalysis W/Reflex to Microscopic & Culture (04/18/2024 6:43 PM EST) Color, Urine Yellow Colorless, Light Yellow, Yellow, Dark Yellow 04/18/2024 7:03 PM EST [facility] Clarity, Urine Slightly Cloudy(A) Clear 04/18/2024 7:03 PM EST [facility] Specific [place]on, Urine 1.025 1.005 - 1.030 04/18/2024 7:03 PM [facility] pH, Urine 5.0 4.6 - 8.0 04/18/2024 7:03 PM [facility] Protein, Urine Negative Negative 04/18/2024 7:03 PM EST [facility] Glucose, Urine Negative Negative 04/18/2024 7:03 PM EST [facility] Ketones, Urine Negative Negative 04/18/2024 7:03 PM EST [facility] Bilirubin, Urine Negative Negative 04/18/2024 7:03 PM EST [facility] Blood, Urine Negative Negative 04/18/2024 7:03 PM EST [facility] Nitrite, Urine Negative Negative 04/18/2024 7:03 PM EST [facility] Urobilinogen, Urine Positive(A) Normal 04/18/2024 7:03 PM [facility] Leukocyte Esterase, Urine 1+(A) Negative 04/18/2024 7:03 PM [facility] WBC, Urine 10(H) 0 - 2 /HPF 04/18/2024 7:03 PM [facility] RBC, Urine 2 0 - 2 /HPF 04/18/2024 7:03 PM [facility] Hyaline Casts, Urine 2 0 - 2 /LPF 04/18/2024 7:03 PM EST [facility] Squamous Epithelial Cells, Urine 4 /HPF 04/18/2024 7:03 PM EST [facility] Bacteria, Urine Rare(A) None /HPF /HPF 04/18/2024 7:03 PM EST [facility] Mucus, Urine Rare /LPF 04/18/2024 7:03 PM EST [facility] Urine Urine specimen collection, clean catch / Unknown Non-Blood Collection / Unknown 04/18/2024 6:43 PM EST 04/18/2024 6:43 PM EST Fermin Hawkins MD LAB URINE ORDERABLES Final Resul t [facility] [address] [place] [address], [place] * Urine Culture, Routine (04/18/2024 6:43 PM EST) Culture Mixed genital carmelita isolated. These superficial bacteria are not indicative of a urinary tract infection. No further organism identification is warranted on this specimen. 04/20/2024 1:03 AM EST [facility] Urine Urine specimen collection, clean catch / Unknown Non-Blood Collection / Unknown 04/18/2024 6:43 PM EST 04/18/2024 7:02 PM EST Narrative [facility] - 04/20/2024 1:03 AM EST [facility] Received Date: MICRO NUMBER: [id number] SPECIMEN QUALITY: Adequate SOURCE: URINE CLEAN CATCH STATUS: FINAL If clinically indicated, recollect clean-catch, mid-stream urine and transfer immediately to Urine Culture Transport Tube. Elvis Tran MD LAB MICROBIOLOGY - GENERAL ORDERABLES Final Result [facility] [address] [facility] [address], [place] [address], [place] [phone] [employer] [facility] [address] [facility] [address], [place] [address], [place] [phone] * (ABNORMAL) CBC Auto Differential (04/18/2024 12:18 PM EST) Only the most recent of2 resultswithin the time period is included. WBC 9.0 3.8 - 10.8 10*3/uL 04/18/2024 12:40 PM EST [facility] RBC 4.45 3.80 - 5.10 10*6/uL 04/18/2024 12:40 PM EST [facility] Hemoglobin 12.7 11.7 - 15.5 g/dL 04/18/2024 12:40 PM EST [facility] Hematocrit 38.4 35.0 - 45.0 % 04/18/2024 12:40 PM EST [facility] MCV 86.3 80.0 - 100.0 fL 04/18/2024 12:40 PM EST [facility] MCH 28.5 27.0 - 33.0 pg 04/18/2024 12:40 PM EST [facility] MCHC 33.1 32.0 - 36.0 g/dL 04/18/2024 12:40 PM EST [facility] RDW 14.0 11.0 - 15.0 % 04/18/2024 12:40 PM EST [facility] Platelets 219 140 - 400 10*3/uL 04/18/2024 12:40 PM EST [facility] MPV 8.9 7.5 - 12.5 fL 04/18/2024 12:40 PM EST [facility] Neutrophil % 69.1 % 04/18/2024 12:40 PM EST [facility] Immature Grans % 0.4 0.0 - 0.9 % 04/18/2024 12:40 PM EST [facility] Lymphocyte % 18.8 % 04/18/2024 12:40 PM EST [facility] Monocyte % 8.3 % 04/18/2024 12:40 PM EST [facility] Eosinophil % 2.8 % 04/18/2024 12:40 PM EST [facility] Basophil % 0.6 % 04/18/2024 12:40 PM EST [facility] Neutrophil # 6.21 1.50 - 7.80 10*3/uL 04/18/2024 12:40 PM EST [facility] Immature Grans # 0.04(H) <=0.03 10*3/uL 04/18/2024 12:40 PM EST [facility] Lymphocyte # 1.70 0.85 - 3.90 10*3/uL 04/18/2024 12:40 PM EST [facility] Monocyte # 0.80 0.20 - 0.95 10*3/uL 04/18/2024 12:40 PM EST [facility] Eosinophil # 0.30 0.02 - 0.50 10*3/uL 04/18/2024 12:40 PM EST [facility] Basophil # 0.10 0.00 - 0.20 10*3/uL 04/18/2024 12:40 PM EST [facility] nRBC % 0.0 /100 WBCs 04/18/2024 12:40 PM EST [facility] nRBC # <0.01 <0.01 10*3/uL 04/18/2024 12:40 PM EST [facility] Blood Structure of peripheral vein / Unknown Venipuncture / Unknown 04/18/2024 12:18 PM EST 04/18/2024 12:33 PM EST us Fermin Hawkins MD LAB BLOOD ORDERABLES Final Resul t [facility] [address] [place] [address], [place] * (ABNORMAL) Comprehensive Metabolic Panel (If age > 70) (04/18/2024 12:18 PM EST) Only the most recent of2 resultswithin the time period is included. NA 138 135 - 145 mmol/L 04/18/2024 1:35 PM EST [facility] K 4.2 3.5 - 5.3 mmol/L 04/18/2024 1:35 PM EST [facility] Cl 107 98 - 107 mmol/L 04/18/2024 1:35 PM EST [facility] CO2 19(L) 22 - 32 mmol/L 04/18/2024 1:35 PM EST [facility] Anion Gap 12 5 - 15 04/18/2024 1:35 PM [facility] Glucose 99 65 - 99 mg/dL 04/18/2024 1:35 PM EST [facility] Creatinine 0.89 0.50 - 1.20 mg/dL 04/18/2024 1:35 PM [facility] Calcium 9.3 8.6 - 10.5 mg/dL 04/18/2024 1:35 PM [facility] Total Protein 6.8 6.0 - 8.0 g/dL 04/18/2024 1:35 PM EST [facility] Albumin 3.8 3.5 - 5.2 g/dL 04/18/2024 1:35 PM [facility] Bilirubin, Total 0.5 0.2 - 1.2 mg/dL 04/18/2024 1:35 PM [facility] Alkaline Phosphatase 181(H) 35 - 129 U/L 04/18/2024 1:35 PM [facility] AST 25 10 - 40 U/L 04/18/2024 1:35 PM [facility] ALT 9(L) 10 - 40 U/L 04/18/2024 1:35 PM EST [facility] BUN 24(H) 7 - 23 mg/dL 04/18/2024 1:35 PM EST [facility] eGFR 64 >=60 mL/min/1. 73m2 04/18/2024 1:35 PM EST [facility] Comment:The estimated glomer ular filtration rate (eGFR) is calculated using a new formula developed by the NKF-ASN task force to eliminate race-based correction factors. The new formula uses serum/plasma creatinine, age, and gender to determine eGFR. A value below 60mls/min might indicate kidney disease and will be flagged. For additional information, see Marcos et al, Am J Kidney Dis. 2021;79(2):268- 288, A Unifying Approach for GFR estimation: Recommendations of the NKF-ASN Task Force on Reassessing the Inclusion of Race in Diagnosing Kidney Disease . Globulin, Total 3.0 2.1 - 4.2 g/dL 04/18/2024 1:35 PM EST [facility] A/G Ratio 1.3(L) 1.5 - 3.0 04/18/2024 1:35 PM EST [facility] Blood Structure of peripheral vein / Unknown Venipuncture / Unknown 04/18/2024 12:18 PM EST 04/18/2024 12:33 PM EST us Fermin Hawkins MD LAB BLOOD ORDERABLES Final Resul t [facility] [address] [place] [address], [place] * MRI Lumbar Spine WO Contrast [...] 4. ??Probable chronic compression deformity at L1. *[place] critical alert A(n) [place] actionable finding has been communicated to the ordering or responsible provider via the [employer] system on 04/06/2024 11:04 AM. ??Receipt of this communication by the responsible provider will be documented in [employer] upon receiving acknowledgement if applicable, Message ID [id number]. If this radiology report contains a blank impression section, it is an incomplete radiology report. ??Please contact the interpreting radiologist or applicable radiology division as soon as possible to obtain the completed interpretation. ? Workstation ID: [id number] Narrative 04/06/2024 11:04 AM EST EXAMINATION: MRI [...] CT abdomen/pelvis dated 03/09/2024. Resulting Agency Comment [id number] Procedure Note Ree Blanton MD - 04/06/2024 [...] involving the bilateral sacral ala spanning the S1-[id number] bodies consistent with reactive changes secondary to [...] 4. 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 *[place] critical alert A(n) [place] actionable finding has been communicated to the ordering orresponsible provider via the [employer] system on04/06/2024 11:04 AM. Receipt of this communication by the responsibleprovider will be documented in [employer] Findings uponreceiving acknowledgement if applicable, Message ID [id number]. If this radiology report contains a blank impression section, it is anincomplete radiology report. Please contact the interpreting radiologistor applicable radiology division as soon as possible to obtain thecompleted interpretation. Workstation ID: [id number] Holli CLAUDIO IMPaul MRI PROCEDURES Final Resul [...] obtain the completed interpretation. ? Workstation ID: [id number] Narrative 03/09/2024 7:00 PM EST COMPARISON: CT from earlier in the same day. FINDINGS AND Resulting Agency Comment [id number] Procedure Note Harpreet Estrada MD - 03/09/2024 [...] possible to obtain thecompleted interpretation. Workstation ID: [id number] Marcia Charles MD IMG XR PROCEDURES Final Resu lt from Last 3 Months Insurance [facility] Advance Directives * Full Code (Latest Code Status on File) Date Activated Date Inactivated Comments 04/19/2024 3:13 AM 04/19/2024 5:15 PM * Presumed Full Code Date Activated Date Inactivated Comments 04/19/2024 12:08 AM 04/19/2024 3:13 AM * Presumed Full Code Date Activated Date Inactivated Comments 07/18/2017 1:44 AM 07/18/2017 6:19 PM Care Teams [employer] Relationship Specialty Start Date End Date Vale Walls [address] [place] [id number] PCP - General Nurse Practitioner 03/08/24
--- NOTE | 2024-05-10 08:45 | A.SPINEOV_ITS ---
Vital Signs 05/10/24 08:59 Height 5 ft 4 in Weight 155 lb BMI 26.6 Intake Visit Reasons: Back pain Intake Note: Ms. Rose is here today c/o Left leg pain and Low back pain. Tenoner Operator Required: No Allergies No Known Allergies Allergy (Verified 05/10/24 09:00) Physical Exam Vital Signs: BMI result Body Mass Index 26.6 Assessment & Plan Assessment & Plan (1) Scoliosis of lumbar region due to degenerative disease of spine in adult: Code(s): M41.56 - Other secondary scoliosis, lumbar region Category: Medical Plan: Dear colleague Thank you for referring Carlene Rose to the office today with a chief complaint of severe left leg pain. HPI: This 83-year-old female has a history of lumbar surgery 15 years ago. She states that in January she developed initially right leg pain that went to her back. She was seen in urgent care and emergency room several times and she was diagnosed with a compression fracture. The right leg pain disappeared but 3 weeks ago she developed severe left leg pain that radiates to her foot. She had epidural steroid injections which relieved the pain from a 10 to an 8 in other words the pain is still severe. The pain comes with walking and standing and disappears when she sits down or leans forward. She denies significant back pain, weakness or numbness. She takes oxycodone every 3 days to alleviate her symptoms. The following conservative treatment options were tried without success antiinflammatories, tylenol, physical therapy, lifestyle modifications, cortisone shots PMH: Hypertension, hysterectomy, cataract surgery Medications: Tylenol, naproxen, oxycodone p.r.n., cetirizine, vitamin-D and calcium, the nape Tisseel/hydrochlorothiazide, losartan, pramipexole, verapamil Allergies: NKDA Social history: Lives alone. Daughter takes care of her. Nonsmoker. Physical Exam: Pleasant female height 5 ft 4 weight 155 lb. She is able to reduce the pain in her left leg with standing in the office. She walks with a limp. There are no neurological deficits for motor sensation or reflexes. Straight leg raise is negative. Radiological Studies: MRI done at [place] on 04/03/2024 shows a lumbar degenerative scoliosis but more importantly shows moderate to severe L4-5 central stenosis with severe left lateral recess stenosis compressing the left L5 nerve root. A standing lumbar x-ray with flexion-extension shows a grade 1 L4-5 spondylolisthesis, osteopenia but no instability. Impression/Plan: This 83-year-old female suffering from unilateral neurogenic claudication, left side due to severe L4-5 central stenosis and lateral recess stenosis. She failed conservative management and the symptoms are unbearable. I offered her a left L4-5 hemilaminotomy to decompress the nerve structures. She is tentatively scheduled for 06/05/2024. She will get preoperative clearance from her nurse practitioner. Thank you for allowing me to participate in your patients care. total time spent was 50 minutes in counseling ,coordination of plan, personal review of imaging, surgical decision making and subsequent plan Roc Au MD, PhD Spine Fellowship Trained Neurosurgeon Director, [facility] Orders: Orders XR lumbar spine 4V min Today M41.56 - Other secondary scoliosis, lumbar region Coding Level of Care Code New Pt Level 4 (34695) Diagnoses Scoliosis of lumbar region due to degenerative disease of spine in adult M41.56
[2024-05-10 08:59] VITALS: BMI 26.6
== END 2024-05-10 10:08 | disposition home or self-care (01) ==
PROVIDERS: Visit Provider Neurological Surgery
DX: M41.56 Other secondary scoliosis, lumbar region (principal)
CPT/HCPCS: 99204

== ENCOUNTER 2024-05-10 08:19 | Outpatient (REF) | payer MEDICARE, SELFPAY ==
--- NOTE | ~2024-05-10 | XR_ITS ---
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 TECHNIQUE: 4 views of the lumbar spine, inclusive of flexion and extension views, were obtained. FINDINGS: Osteopenia. There is a moderate right convex scoliosis with a rotatory component. Estimated Ackerman angle is 30 degrees, apex at L2. Mildly exaggerated lordosis. There appears to be a 6 mm anterolisthesis of L5 on S1. There appears to be a 5mm degenerative anterolisthesis of L4 on L5. No additional significant subluxation on the neutral view. There is a probable old S2 healed fracture. Advanced multilevel degenerative disc and facet changes. Flexion exam shows no significant change. Extension exam demonstrates no significant change. Advanced vascular calcifications in the soft tissues. Moderate retained fecal residue. XR/XR lumbar spine 4V min IMPRESSION: 1. Osteopenia with moderate right convex scoliosis with a rotatory component. 2. Advanced degenerative spondylosis. 3. There is a 6 mm degenerative anterolisthesis of L5 on S1. 4. There is a 5mm degenerative anterolisthesis of L4 on L5. No gross evidence of instability on flexion and extension views. 5. Vascular calcification and moderate constipation. Electronically signed by: Perry Goodman MD 05/10/2024 12:38 PM [facility]
--- OUTSIDE RECORDS SUMMARY | 2024-05-10 10:06 | XMS_ITS | Encounter Summary ---
Author Organization [facility] Address [address] [place] [address] Care Team Providers Care Customer Experience Professional Name Role Phone Alison Francis MD Primary Care Provider [phone] Alison Francis MD Primary Care Provider [phone] Regan Darling MD Primary Care Provider [phone] Shreyas Orellana MD Primary Care Provider Unavaila Ashanti Shetty MD Primary Care Provider Shreyas Orellana MD Primary Care Provider UnavailAshanti Smith MD Primary Care Provider [phone] Vale Walls NP Primary Care Provider [phone] Chastity Cortes MD Unavailable [phone] CouVale badillo EVP Unavailable [phone] Encounter Details Date Type Department Care Team (Late st Contact Info) Description 09/26/2005 Orders Only [facility] Internal Medicine [address] [place] [id number] Regan Darling MD [address] [place] [id number] Social History Tobacco Use Types Packs/Day Years Used Date Smoking Tobacco: Never Assessed Comments Unknown Sex and Gender Information Value Date Recorded Sex Assigned at Not on file Legal Sex Female 9:57 PM EDT Gender Identity Not on file Sexual Orientation Not on file documented as of this encounter Plan of Treatment Not on file documented as of this encounter Procedures * Due to [employer] law, this organization might not be sharing negative HIV tests. Procedure Name Priority Date/Time Associated Diagnosis Comments CHEMISTRY PANEL CP-7 Routine 09/26/2005 10:00 AM EDT Hypertension documented in this encounter Results * Due to [employer] law, this organization might not be sharing negative HIV tests. * (ABNORMAL) CHEMISTRY PANEL CP-7 (09/26/2005 10:00 AM EDT) CALCIUM 9.9 8.5 - 10.4 MG/DL [facility] (CLIA# [id number]) BUN 24 7 - 25 MG/DL [facility] (CLIA# [id number]) CREATININE 0.8 0.5 - 1.2 MG/DL [facility] (CLIA# [id number]) BUN/Creatinine Ratio 30(H) 6 - 25 [facility] (CLIA# [id number]) Glucose 92 65 - 99 MG/DL [facility] (CLIA# [id number]) SODIUM 140 135 - 146 MMOL/L [facility] (CLIA# [id number]) POTASSIUM 3.7 3.5 - 5.3 MMOL/L [facility] (CLIA# [id number]) CHLORIDE 100 98 - 110 MMOL/L [facility] (CLIA# [id number]) CARBON DIOXIDE 25 21 - 33 MMOL/L [facility] (CLIA# [id number]) 09/26/2005 10:0 0 AM EDT 09/26/2005 7:47 PM EDT Regan Darling MD LABORATORY Final Result [facility] (CLIA# [id number]) [address] [place] [address] documented in this encounter Visit Diagnoses Diagnosis Hypertension Unspecified essential hypertension documented in this encounter Additional Health Concerns Infection Onset Date Last Indicated Resolved Time COVID-19 Confirmed 07/11/2019 07/11/2019 0 8:12 PM EDT documented as of this encounter Care Teams Customer Experience Professional Relationship Specialty Start Date End Date Alison Francis MD PCP - General 03/20/10 09/01/15 Alison Francis MD PCP - General 07/02/07 03/19/10 Regan Darling MD [address] [place] [address] PCP - General 06/11/05 07/01/07 Shreyas Orellana MD [address] [place] [address] PCP - General Internal Medicine 09/02/15 07/07/19 Ashanti Kumar MD [address] [place] [address] PCP - General Family Medicine 07/08/19 07/09/19 Shreyas Orellana MD [address] [place] [address] PCP - General Internal Medicine 07/10/19 09/06/19 Ashanti Kumar MD [address] [place] [address] PCP - General Family Medicine 09/07/19 07/12/20 Vale Walls NP [address] [place] [address] PCP - General Geriatrics 07/13/20 Chastity Cortes MD [address] [place] [address] PCP - Backup PCP Geriatrics 10/23/20 03/30/21 Vale Walls NP [address] [place] [address] PCP - Backup PCP Geriatrics 10/06/21 documented as of this encounter
--- OUTSIDE RECORDS SUMMARY | 2024-05-10 10:07 | XMS_ITS | Encounter Summary ---
Author Organization [facility] Address [address] [place] [address] Care Team Providers Care Gum Rolling Machine Operator Name Role Phone Alison Francis MD Primary Care Provider [phone] Alison Francis MD Primary Care Provider Shreyas Orellana MD Primary Care Provider UnavailAshanti Smith MD Primary Care Provider Shreyas Orellana MD Primary Care Provider UnavailAshanti Smith MD Primary Care Provider Vale Walls TRADE PROMOTION ANALYST Primary Care Provider Chastity Cortes MD Unavailable [phone] Vale Walls TRADE PROMOTION ANALYST Unavailable Encounter Details Date Type Department Care Team (Late st Contact Info) Description 04/04/2008 Orders Only [facility] [address] [place] [phone] Alison Francis MD [address] [place] [id number] Social History Tobacco Use Types Packs/Day Years Used Date Smoking Tobacco: Never Alcohol Use Standard Drinks/Week Comments No 0 (1 standard drink = 0.6 oz pur e alcohol) Comments No Sex and Gender Information Value Date Recorded Sex Assigned at Not on file Legal Sex Female 9:57 PM EDT Gender Identity Not on file Sexual Orientation Not on file 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 Procedure Name Priority Date/Time Associated Diagnosis Comments CARDIAC RISK/LIPID PROFILE I Routine 04/04/2008 Hypertension Fungal Dermatitis BASIC METABOLIC PANEL Routine 04/04/2008 Hypertension Fungal Dermatitis CBC 5 PART DIFF Routine 04/04/2008 Hypertension Fungal Dermatitis documented in this encounter Results * Due to [place] [employer] law, this organization might not be sharing negative HIV tests. * (ABNORMAL) CBC 5 PART DIFF (04/04/2008) WHITE BLOOD COUNT 8.2 3.8 - 10.8 THOUS/UL RBC 4.76 3.80 - 5.10 MIL/UL Hemoglobin 14.1 11.7 - 15.5 G/DL HCT (HEMATOCRIT) 41.2 35.0 - 45.0 % MCV 86.5 80.0 - 100.0 FL MCH 29.7 27.0 - 33.0 PG MCHC 34.3 32.0 - 36.0 G/DL BAND % 0 0 - 5 % NEUTROPHIL % 56 48 - 75 % LYMPHOCYTE % 30 17 - 40 % MONOCYTE % 7 0 - 14 % EOSINOPHIL % 6(H) 0 - 5 % BASOPHIL % 1 0 - 3 % ATYPICAL LYMPHOCYTE % 0 0 - 5 % PLATELETS 249 140 - 400 THOUS/UL BANDS # 0 0 - 750 CELLS/MCL NEUTROPHILS # 4592 1500 - 7800 CELLS/MCL LYMPHOCYTES # 2460 850 - 3900 CELLS/MCL MONOCYTES # 574 200 - 950 CELLS/MCL EOSINOPHILS # 492 15 - 550 CELLS/MCL BASOPHILS # 82 0 - 200 CELLS/MCL ATYPICAL LYMPHOCYTES # 0 0 - 200 CELLS/MCL RDW 12.9 11.0 - 15.0 % MPV 8.2 7.5 - 11.5 FL 04/04/2008 04/04/2008 3:5 4 PM EST Alison Francis MD LAB SAME DAY RESULT Final Resul t * (ABNORMAL) BASIC METABOLIC PANEL (04/04/2008) CALCIUM 9.6 8.6 - 10.2 MG/DL BUN 18 7 - 25 MG/DL CREATININE 0.79 0.50 - 1.20 MG/DL Glucose 106(H) 65 - 99 MG/DL SODIUM 141 135 - 146 MMOL/L POTASSIUM 3.6 3.5 - 5.3 MMOL/L CHLORIDE 103 98 - 110 MMOL/L CARBON DIOXIDE 25 21 - 33 MMOL/L 04/04/2008 04/04/2008 3:5 4 PM EST us Alison Francis MD LAB SAME DAY RESULT Final Resul t * (ABNORMAL) CARDIAC RISK/LIPID PROFILE I (04/04/2008) CHOLESTEROL, TOTAL 215(H) 125 - 200 MG/DL TRIGLYCERIDES 145 30 - 149 MG/DL HDL-CHOLESTEROL 51 40 - 77 MG/DL LDL-CHOLESTEROL 135(H) 62 - 130 MG/DL Comment: RISK CATEGORY: ??LDL-CHOLESTEROL GOAL CHD AND CHD RISK EQUIVALENTS: ??<100 MULTIPLE (2+) FACTORS: ??<130 ZERO TO ONE RISK FACTOR: ??<160 CHD RELATIVE RISK RATIO (TOTAL/HDL) 4.22 0.0 - 5.0 Comment:(0.9 X AVERAGE) 04/04/2008 04/04/2008 3:5 4 PM EST us Alison Francis MD LABORATORY Final Result documented in this encounter Visit Diagnoses Diagnosis Hypertension Unspecified essential hypertension Fungal dermatitis Dermatomycosis, unspecified documented in this encounter Additional Health Concerns Infection Onset Date Last Indicated Resolved Time COVID-19 Confirmed 07/11/2019 07/11/2019 0 8:12 PM EDT documented as of this encounter Care Teams Gum Rolling Machine Operator Relationship Specialty Start Date End Date Alison Francis MD PCP - General 03/20/10 09/01/15 Alison Francis MD PCP - General 07/02/07 03/19/10 Shreyas Orellana MD PCP - General Internal Medicine 09/02/15 07/07/19 Ashanti Kumar MD PCP - General Family Medicine 07/08/19 07/09/19 Shreyas Orellana MD PCP - General Internal Medicine 07/10/19 09/06/19 Ashanti Kumar MD PCP - General Family Medicine 09/07/19 07/12/20 Vale Walls NP [address] [place] [address] PCP - General Geriatrics 07/13/20 Chastity Cortes MD [address] [place] [address] PCP - Backup PCP Geriatrics 10/23/20 03/30/21 Vale Walls NP [address] [place] [address] PCP - Backup PCP Geriatrics 10/06/21 documented as of this encounter
--- OUTSIDE RECORDS SUMMARY | 2024-05-10 10:07 | XMS_ITS | Encounter Summary ---
Author Organization [facility] Address [address] [place] [address] Care Team Providers Care Per Diem Name Role Phone Alison Francis MD Primary Care Provider Shreyas Orellana MD Primary Care Provider UnavailAshanti Smith MD Primary Care Provider [phone] Shreyas Orellana MD Primary Care Provider UnavailAshanti Smith MD Primary Care Provider [phone] Vale Walls SECURITY TEST ENGINEER Primary Care Provider Chastity Cortes MD Unavailable [phone] Vale Walls SECURITY TEST ENGINEER Unavailable Encounter Details Date Type Department Care Team (Late st Contact Info) Description 12/16/2014 Orders Only [facility] [address] [place] [address] Alison Francis MD [address] [place] [id number] Social History Tobacco Use Types Packs/Day Years [...] on file documented as of this encounter Goals Goal Patient Goal Type Associated Problems Recent Progress Patient-Stated? Author Blood Pressure < 140/90 Blood Pressure 158/66( 024 3:45 PM EST) Marsha Farah CMA documented as of this encounter Results * Due to [place] state law, this organization might not be sharing negative HIV tests. * (ABNORMAL) VITAMIN D, 25-HYDROXY, TOTAL, IMMUNOASSAY (07/07/2015 11:55 AM EDT) Vitamin D, 25-OH, Total 26(L) 30 - 100 ng/mL [facility] Comment: {VITAMIN D,25-OH,TOTAL,IA {[id number]) Vitamin D Status ? 25-OH Vitamin D: Deficiency: ?<20 ng/mL Insufficiency: ? 20 - 29 ng/mL Optimal: ? > or = 30 ng/mL For 25-OH Vitamin D testing on patients on D2-supplementation and patients for whom quantitation of D2 and D3 fractions is required, the QuestAssureD(TM) 25-OH VIT D, (D2,D3), LC/MS/MS is recommended: order code 65893 (patients >2yrs). For more information on this test, go to: http://education.Proven/faq/IOJ270 (This link is being provided for informational/educational purposes only.) 07/07/2015 11:5 5 AM EDT 07/07/2015 7:19 PM EDT Narrative Resulting Agency Comment [id number] us Alison Francis MD LABORATORY Final Result [facility] [address] [place] [address] documented in this encounter Visit Diagnoses Diagnosis Lipids blood increased- Primary Other and unspecified hyperlipidemia Unspecified vitamin D deficiency documented in this encounter Additional Health Concerns Infection Onset Date Last Indicated Resolved Time COVID-19 Confirmed 07/11/2019 07/11/2019 0 8:12 PM EDT documented as of this encounter Care Teams Per Diem Relationship Specialty Start Date End Date Alison Francis MD PCP - General 03/20/10 09/01/15 Shreyas Orellana MD PCP - General Internal Medicine 09/02/15 07/07/19 Ashanti Kumar MD PCP - General Family Medicine 07/08/19 07/09/19 Shreyas Orellana MD PCP - General Internal Medicine 07/10/19 09/06/19 Ashanti Kumar MD PCP - General Family Medicine 09/07/19 07/12/20 Vale Walls NP [address] [place] [address] PCP - General Geriatrics 07/13/20 Chastity Cortes MD [address] [place] [address] PCP - Backup PCP Geriatrics 10/23/20 03/30/21 Vale Walls NP [address] [place] [address] PCP - Backup PCP Geriatrics 10/06/21 documented as of this encounter
--- OUTSIDE RECORDS SUMMARY | 2024-05-10 10:07 | XMS_ITS | Encounter Summary ---
Author Organization [facility] Address [address] [place] [address] Care Team Providers Care Cookie Breaker Name Role Phone Alison Francis MD Primary Care Provider Shreyas Orellana MD Primary Care Provider UnavailAshanti Smith MD Primary Care Provider Shreyas Orellana MD Primary Care Provider UnavailAshanti Smith MD Primary Care Provider Vale Walls CUSTOMER SERVICE ASSOCIATE Primary Care Provider Chastity Cortes MD Unavailable Vale Walls CUSTOMER SERVICE ASSOCIATE Unavailable Encounter Details Date Type Department Care Team (Late st Contact Info) Description 08/28/2013 Orders Only [facility] [address] [place] [address] Alison Francis MD [address] [place] [phone] Social History Tobacco Use Types Packs/Day Years [...] on file documented as of this encounter Results * Due to [place] state law, this organization might not be sharing negative HIV tests. * (ABNORMAL) VITAMIN D, 25-HYDROXY, LC/MS/MS (12/15/2014 11:14 AM EDT) Vitamin D, 25-OH, Total 22(L) 30 - 100 ng/mL [facility] Comment: {VITAMIN D,25-OH,TOTAL,IA {[id number]) Vitamin D Status ? 25-OH Vitamin D: Deficiency: ?<20 ng/mL Insufficiency: ? 20 - 29 ng/mL Optimal: ? > or = 30 ng/mL For 25-OH Vitamin D testing on patients on D2-supplementation and patients for whom quantitation of D2 and D3 fractions is required, the QuestAssureD(TM) 25-OH VIT D, (D2,D3), LC/MS/MS is recommended: order code 58423 (patients >2yrs). For more information on this test, go to: http://education.Streemio/faq/VSP117 (This link is being provided for informational/educational purposes only.) 12/15/2014 11:1 4 AM EDT 12/15/2014 10:17 PM EDT Narrative Resulting Agency Comment [id number] us Alison Francis MD LABORATORY Final Result [facility] [address] [place] [address] * VITAMIN B12 (CYANOCOBALAMIN), SERUM (12/15/2014 11:14 AM EDT) Vitamin B12 (Cobalamins) 423 200 - 1100 pg/mL [facility] Comment:{VITAMIN B12 {[id number]) 12/15/2014 11:1 4 AM EDT 12/15/2014 10:17 PM EDT Narrative Resulting Agency Comment [id number] us Alison Francis MD LABORATORY Final Result [facility] [address] [place] [address] * BASIC METABOLIC PANEL WITH (GFR) (12/15/2014 11:14 AM EDT) Glucose 97 65 - 99 mg/dL [facility] Comment: {GLUCOSE {[id number]) ? Fasting reference interval Urea Nitrogen Blood (BUN) 21 7 - 25 mg/dL [facility] Comment:{UREA NITROGEN (BUN) {[id number]) Creatinine 0.80 0.60 - 0.93 mg/dL [facility] Comment: {CREATININE {[id number]) For patients >49 years of age, the reference limit for Creatinine is approximately 13% higher for people identified as -Ghanaian. GFR 72 > OR = 60 mL/min/1 .73m2 [facility] Comment:{eGFR NON-AFR. AMERI CAN {[id number]) GFR () 83 > OR = 60 mL/min/1 .73m2 [facility] Comment:{eGFR AMERIC AN {[id number]) BUN/Creatinine Ratio NOT APPLICABLE 6 - 22 (calc) [facility] Comment:{BUN/CREATININE RATI O {[id number]) Sodium 137 135 - 146 mmol/L [facility] Comment:{SODIUM {[id number]) Potassium 3.7 3.5 - 5.3 mmol/L [facility] Comment:{POTASSIUM {[id number]) Chloride 101 98 - 110 mmol/L [facility] Comment:{CHLORIDE {[id number]) Carbon dioxide 25 19 - 30 mmol/L [facility] Comment:{CARBON DIOXIDE {[id number]) Calcium 9.7 8.6 - 10.4 mg/dL [facility] Comment:{CALCIUM {[id number]) 12/15/2014 11:1 4 AM EDT 12/15/2014 10:17 PM EDT Narrative [facility] - 12/16/2014 1:00 AM EDT Please note that this estimated GFR does not include an adjustment for the patient's height or weight, and can therefore, be viewed as reliable only for patients with heights between 60 and 72 . More precise quantification using a 24-hour urine sample or height-based algorithm is recommended for patients outside of this range of height and for those individuals with more precise needs for GFR calculation. Resulting Agency Comment [id number] us Alison Francis MD LABORATORY Final Result Performing Organization Address [facility] Co de Phone Number [facility] [address] [place] [address] * (ABNORMAL) LIPID PANEL WITH REFLEX TO DIRECT LDL (12/15/2014 11:14 AM EDT) Cholesterol 219(H) 125 - 200 mg/dL [facility] Comment:{CHOLESTEROL, TOTAL {[id number]) HDL Cholesterol 49 > OR = 46 mg/dL [facility] Comment:{HDL CHOLESTEROL {[id number]) Triglyceride 165(H) <150 mg/dL [facility] Comment:{TRIGLYCERIDES {[id number]) LDL Cholesterol 137(H) <130 mg/dL (calc) [facility] Comment: {LDL-CHOLESTEROL {[id number]) Desirable range <100 mg/dL for patients with CHD or diabetes and <70 mg/dL for diabetic patients with known heart disease. CHOL/HDL Ratio 4.5 < OR = 5.0 (calc) [facility] Comment:{CHOL/HDLC RATIO {[id number]) Cholesterol Non-HDL 170(H) mg/dL (calc) [facility] Comment: {NON HDL CHOLESTEROL {[id number]) Target for non-HDL cholesterol is 30 mg/dL higher than LDL cholesterol target. 12/15/2014 11:1 4 AM EDT 12/15/2014 10:17 PM EDT Narrative Resulting Agency Comment [id number] us Alison Francis MD LABORATORY Final Result Performing Organization Address [facility]/ZIP Co de Phone Number [facility] [address] [place] [address] * URINALYSIS, COMPLETE INCLUDES DIPSTICK AND MICROSCOPIC (12/15/2014 11:14 AM EDT) Color (Urine) YELLOW YELLOW [facility] Comment:{COLOR {[id number]) Appearance (Urine) CLEAR CLEAR [facility] Comment:{APPEARANCE {[id number]) Specific gravity (Urine) 1.014 1.001 - 1.035 [facility] Comment:{SPECIFIC GRAVITY {[id number]) pH (Urine) 6.5 5.0 - 8.0 [facility] Comment:{PH {[id number]) Glucose (Urine) NEGATIVE NEGATIVE [facility] Comment:{GLUCOSE {[id number]) Bilirubin (Urine) NEGATIVE NEGATIVE [facility] Comment:{BILIRUBIN {[id number]) Ketones (Urine) NEGATIVE NEGATIVE [facility] Comment:{KETONES {[id number]) Hemoglobin (Urine) NEGATIVE NEGATIVE [facility] Comment:{OCCULT BLOOD {[id number]) Protein (Urine) NEGATIVE NEGATIVE [facility] Comment:{PROTEIN {[id number]) Nitrite (Urine) NEGATIVE NEGATIVE [facility] Comment:{NITRITE {[id number]) Leukocyte esterase (Urine) NEGATIVE NEGATIVE [facility] Comment:{LEUKOCYTE ESTERASE {[id number]) WBC (Urine) NONE SEEN < OR = 5 /HPF [facility] Comment:{WBC {[id number]) RBC (Urine Sed) NONE SEEN < OR = 2 /HPF [facility] Comment:{RBC {[id number]) Epithelial cells.squamous (Urine sed) 0-5 < OR = 5 /HPF [facility] Comment:{SQUAMOUS EPITHELIAL CELLS {[id number]) Bacteria (Urine) NONE SEEN NONE SEEN /HPF [facility] Comment:{BACTERIA {[id number]) Hyaline casts (Urine sed) NONE SEEN NONE SEEN /LPF [facility] Comment:{HYALINE CAST {[id number]) Service comment 01 SEE NOTE [facility] Comment: {COMMENTS {[id number]) The above test was performed; ??evaluate the urinalysis results with caution. ??The urine specimen was received without a preservative. ??Deterioration of formed elements and/or alteration of chemical constituents may have occurred. 12/15/2014 11:1 4 AM EDT 12/15/2014 10:17 PM EDT Narrative Resulting Agency Comment [id number] us Alison Francis MD LAB SAME DAY RESULT Final Resul t [facility] [address] [place] [address] * CBC INCLUDES DIFFERENTIAL AND PLATELET COUNT (12/15/2014 11:14 AM EDT) WBC 6.6 3.8 - 10.8 Thousand/u L [facility] Comment:{WHITE BLOOD CELL CO UNT {[id number]) RBC 4.98 3.80 - 5.10 Million/uL [facility] Comment:{RED BLOOD CELL COUN T {[id number]) Hemoglobin 14.3 11.7 - 15.5 g/dL [facility] Comment:{HEMOGLOBIN {[id number]) Hematocrit 44.0 35.0 - 45.0 % [facility] Comment:{HEMATOCRIT {[id number]) MCV 88.2 80.0 - 100.0 fL [facility] Comment:{MCV {[id number]) MCH 28.8 27.0 - 33.0 pg [facility] Comment:{MCH {[id number]) MCHC 32.6 32.0 - 36.0 g/dL [facility] Comment:{MCHC {[id number]) RDW 13.9 11.0 - 15.0 % [facility] Comment:{RDW {[id number]) PLT 208 140 - 400 Thousand/u L [facility] Comment:{PLATELET COUNT {[id number]) MPV 8.3 7.5 - 11.5 fL [facility] Comment:{MPV {[id number]) Neutrophils # 3505 1500 - 7800 cells/uL [facility] Comment:{ABSOLUTE NEUTROPHIL S {[id number]) Lymphocytes # 2409 850 - 3900 cells/uL [facility] Comment:{ABSOLUTE LYMPHOCYTE S {[id number]) Monocytes # 495 200 - 950 cells/uL [facility] Comment:{ABSOLUTE MONOCYTES {[id number]) Eosinophils # 139 15 - 500 cells/uL [facility] Comment:{ABSOLUTE EOSINOPHIL S {[id number]) Basophils # 53 0 - 200 cells/uL [facility] Comment:{ABSOLUTE BASOPHILS {[id number]) Neutrophils % 53.1 % [facility] Comment:{NEUTROPHILS {[id number]) Lymphocytes % 36.5 % [facility] Comment:{LYMPHOCYTES {[id number]) Monocytes % 7.5 % [facility] Comment:{MONOCYTES {[id number]) Eosinophils % 2.1 % [facility] Comment:{EOSINOPHILS {[id number]) Basophils % 0.8 % [facility] Comment:{BASOPHILS {[id number]) 12/15/2014 11:1 4 AM EDT 12/15/2014 10:17 PM EDT Narrative Resulting Agency Comment [id number] us Alison Francis MD LAB SAME DAY RESULT Final Resul t [facility] [address] [place] [address] * THYROID CASCADING REFLEX (12/15/2014 11:14 AM EDT) TSH 2.72 0.40 - 4.50 mIU/L [facility] Comment:{TSH {[id number]) INTERPRETATION SEE NOTE [facility] Comment: {INTERPRETATION {[id number]) TSH within normal range. Consistent with euthyroid patient. Interference from heterophilic antibodies (more common) or autoantibody (less common) should be considered when the TSH value does not fit the clinical picture. TSH with HAMA Treatment (test code 17252) or TSH Antibody (test code 55892) may help identify such interferences. 12/15/2014 11:1 4 AM EDT 12/15/2014 10:17 PM EDT Narrative Resulting Agency Comment [id number] Alison Francis MD LABORATORY Final Result [facility] [address] [place] [address] documented in this encounter Visit Diagnoses Diagnosis Routine general medical examination at a health care facility- Primary Screening for thyroid disorder Screening for other disorders of blood and blood-forming organs Hypertension Unspecified essential hypertension Hyperlipidemia Other and unspecified hyperlipidemia Encounter for long-term (current) use of high-risk medication Encounter for long-term (current) use of other medications Screening for endorine/nutritional/metabolic disease Screening for other and unspecified endocrine, nutritional, metabolic, and immunity disorders Unspecified vitamin D deficiency Routine general medical examination at a health care facility Screening for other disorders of blood and blood-forming organs Hypertension Unspecified essential hypertension Hyperlipidemia Other and unspecified hyperlipidemia Encounter for long-term (current) use of high-risk medication Encounter for long-term (current) use of other medications Screening for endorine/nutritional/metabolic disease Screening for other and unspecified endocrine, nutritional, metabolic, and immunity disorders Unspecified vitamin D deficiency Screening for thyroid disorder documented in this encounter Additional Health Concerns Infection Onset Date Last Indicated Resolved Time COVID-19 Confirmed 07/11/2019 07/11/2019 0 8:12 PM EDT documented as of this encounter Care Teams Cookie Breaker Relationship Specialty Start Date End Date Alison Francis MD PCP - General 03/20/10 09/01/15 Shreyas Orellana MD PCP - General Internal Medicine 09/02/15 07/07/19 Ashanti Kumar MD PCP - General Family Medicine 07/08/19 07/09/19 Shreyas Orellana MD PCP - General Internal Medicine 07/10/19 09/06/19 Ashanti Kumar MD PCP - General Family Medicine 09/07/19 07/12/20 Vale Walls NP [address] [place] [address] PCP - General Geriatrics 07/13/20 Chastity Cortes MD [address] [place] [address] PCP - Backup PCP Geriatrics 10/23/20 03/30/21 Vale Walls NP [address] [place] [address] PCP - Backup PCP Geriatrics 10/06/21 documented as of this encounter
--- OUTSIDE RECORDS SUMMARY | 2024-05-10 10:07 | XMS_ITS | Encounter Summary ---
Author Organization [facility] Address [address] [place] [address] Care Team Providers Care Spray Machine Tender Name Role Phone Shreyas Orellana MD Primary Care Provider UnavailAshanti Smith MD Primary Care Provider [phone] Shreyas Orellana MD Primary Care Provider UnavailAshanti Smith MD Primary Care Provider Vale Walls NP Primary Care Provider [phone] Chastity Cortes MD Unavailable Vale Walls NP Unavailable [phone] Encounter Details Date Type Department Care Team (Late st Contact Info) Description 06/04/2018 Orders Only [place] [facility] [address] [place] [phone] Shreyas Orellana MD Social History Tobacco Use Types Packs/Day Years [...] Blood Pressure 158/66( 024 3:45 PM EST) Magi Guzman Marsha, CMA documented as of this encounter Visit Diagnoses Diagnosis Injury of ear, initial encounter documented in this encounter Additional Health Concerns Infection Onset Date Last Indicated Resolved Time COVID-19 Confirmed 07/11/2019 07/11/2019 0 8:12 PM EDT documented as of this encounter Care Teams Spray Machine Tender Relationship Specialty Start Date End Date Shreyas Orellana MD PCP - General Internal Medicine 09/02/15 07/07/19 Ashanti Kumar MD PCP - General Family Medicine 07/08/19 07/09/19 Shreyas Orellana MD PCP - General Internal Medicine 07/10/19 09/06/19 Ashanti Kumar MD PCP - General Family Medicine 09/07/19 07/12/20 Vale Walls NP [address] [place] [address] PCP - General Geriatrics 07/13/20 Chastity Cortes MD [address] [place] [address] PCP - Backup PCP Geriatrics 10/23/20 03/30/21 Vale Walls NP [address] [place] [address] PCP - Backup PCP Geriatrics 10/06/21 documented as of this encounter
--- OUTSIDE RECORDS SUMMARY | 2024-05-10 10:07 | XMS_ITS | Encounter Summary ---
Author Organization [facility] Address [address] [place] [address] Care Team Providers Care Offset Pressman Name Role Phone Alison Francis MD Primary Care Provider Shreyas Orellana MD Primary Care Provider UnavailAshanti Smith MD Primary Care Provider [phone] Shreyas Orellana MD Primary Care Provider UnavailsAhanti Smith MD Primary Care Provider Vale Walls GENETIC COUNSELLOR Primary Care Provider Chastity Cortes MD Unavailable Vale Walls GENETIC COUNSELLOR Unavailable Reason for Visit * Reason Comments E-prescribing Refill Request Encounter Details Date Type Department Care Team (Late st Contact Info) Description 05/04/2014 Refill [facility] [address] [place] [phone] Alison Francis MD [address] [place] [address] E-prescribing Refill Request Social History Tobacco Use Types Packs/Day Years [...] encounter Miscellaneous Notes * Telephone Encounter - Maria C Roa - 05/05/2014 8:55 AM EST Faxed/E-prescribed medication renewal request(s) for Carlene Rose 73 y.o. female received from pharmacy. Unable to confirm pharmacy with pt, most recent pharmacy on file was used. Any special requests or concerns?- none Last CPE with this specialty: 02/24/2011 Last OV with this specialty: 08/28/2013 Next OV: Future Appointments Date Time Provider Department Center 06/06/2014 9:00 AM Alison Francis MD [facility] Pertinent lab results: Lab Results Component Value Date SODIUM 140 12/10/2012 POTASSIUM 3.8 12/10/2012 CHLOR 107 12/10/2012 CO2 25 12/10/2012 BUN 23 12/10/2012 CREATININE 0.75 12/10/2012 GLUCOSE 91 12/10/2012 JUANA 9.1 12/10/2012 An open order for Basic exists. Testing recommended a minimum of yearly for chronic therapy . Based on last lab testing intervals, 1 month supply suggested for potassium, diuretics, GABBI inhibitors and ARBs. Please arrange updated lab monitoring. Allergies: Codeine and Lisinopril BP Readings from Last 1 Encounters: 08/28/13 157/82 Patient Active Problem List Diagnosis Date Noted ??? Right foot pain 08/28/2013 01/16/2014 : Impression: Postsurgical changes status post bunionectomy and osteotomies second third and fourth proximal phalanges. ??? Ds DNA antibody positive 12/10/2012 ??? CHRONIC RENAL INSUFFICIENCY xx0.39xx (HCC) 10/25/2011 ??? Vitamin B12 deficiency 08/26/2010 ??? Health maintenance examination 11/27/2007 Immunization History Administered Date(s) Administered ??? Pneumovax(PPV-23) 06/07/2005 ??? TD (over 7 yrs old) 07/28/1993, 06/07/2005 Mammo: scheduled Colonoscopy: 2006 DEXA: 2005 ??? Back pain 07/31/2007 S/P Back surgery for herniated disc 1 month ago -now on Neurontin and Percocet 1-2 tabs at bedtime 2 -3 times a week prn. ??? Vitamin D Defiency 05/08/2007 Advused otc supplements , ? ? Hyperlipidemia; LDL Goal < 130 05/08/2007 LDL 134- advised diet and exercise. ??? Hypertension 06/23/2005 Blood pressure 120/58, pulse 68, ??? Osteoporosis 06/08/2005 TScore 2006 -2.7. Rx for fosamax sent - she has not been taking it the past year. Took it for 2 yrsand stopped. , Current Outpatient Prescriptions on File Prior to Visit Medication Sig Dispense Refill ??? Hydrochlorothiazide 25 MG Tab TAKE 1 TABLET BY MOUTH DAILY-needs labs before refills 30 Tab 0 ??? Furosemide 20 MG Tab Take 1 by mouth once every 2 days 5 Tab 0 ??? CALCIUM + D 600-200 MG-UNIT OR TABS 1 tablet by mouth daily 30 0 documented in this encounter Plan of Treatment Not on file documented as of this encounter Goals Goal Patient Goal Type Associated Problems Recent Progress Patient-Stated? Author Blood Pressure < 140/90 Blood Pressure 158/66( 024 3:45 PM EST) No Marsha Guzman CMA documented as of this encounter Visit Diagnoses Not on filedocumented in this encounter Additional Health Concerns Infection Onset Date Last Indicated Resolved Time COVID-19 Confirmed 07/11/2019 07/11/2019 0 8:12 PM EDT documented as of this encounter Care Teams Offset Pressman Relationship Specialty Start Date End Date Alison Francis MD PCP - General 03/20/10 09/01/15 Shreyas Orellana MD PCP - General Internal Medicine 09/02/15 07/07/19 Ashanti Kumar MD PCP - General Family Medicine 07/08/19 07/09/19 Shreyas Orellana MD PCP - General Internal Medicine 07/10/19 09/06/19 Ashanti Kumar MD PCP - General Family Medicine 09/07/19 07/12/20 Vale Walls NP [address] [place] [address] PCP - General Geriatrics 07/13/20 Chastity Cortes MD [address] [place] [address] PCP - Backup PCP Geriatrics 10/23/20 03/30/21 Vale Walls NP [address] [place] [address] PCP - Backup PCP Geriatrics 10/06/21 documented as of this encounter
--- OUTSIDE RECORDS SUMMARY | 2024-05-10 10:07 | XMS_ITS | Encounter Summary ---
Author Organization [facility] Address [address] [place] [address] Care Team Providers Care Drip Box Tender Name Role Phone Alison Francis MD Primary Care Provider [phone] Alison Francis MD Primary Care Provider [phone] Regan Darling MD Primary Care Provider [phone] Shreyas Orellana MD Primary Care Provider UnavailAshanti Smith MD Primary Care Provider [phone] Shreyas Orellana MD Primary Care Provider UnavailAshanti Smith MD Primary Care Provider [phone] Vale Walls NP Primary Care Provider [phone] Chastity Cortes MD Unavailable [phone] Vale Walls HELMINTHOLOGIST Unavailable [phone] Encounter Details Date Type Department Care Team (Late st Contact Info) Description 06/08/2007 Orders Only [facility] Internal Medicine [address] [place] [phone] Regan Darling MD [address] [place] [id number] Social History Tobacco Use Types Packs/Day Years Used Date Smoking Tobacco: Never Alcohol Use Standard Drinks/Week Comments Not Asked 0 (1 standard drink = 0.6 oz [...] of this encounter Procedures * Due to [facility] law, this organization might not be sharing negative HIV tests. Procedure Name Priority Date/Time Associated Diagnosis Comments BASIC METABOLIC PANEL STAT (All results called to provider) 06/08/2007 DEHYDRATION CBC 5 PART DIFF STAT (All results called to provider) 06/08/2007 FATIGUE documented in this encounter Results * Due to [place] [employer] law, this organization might not be sharing negative HIV tests. * (ABNORMAL) CBC 5 PART DIFF (06/08/2007) WHITE BLOOD COUNT 11.1(H) 3.8 - 10.8 THOUS/UL [facility] (CLIA# [id number]) RBC 5.04 3.80 - 5.10 MIL/UL [facility] (CLIA# [id number]) Hemoglobin 14.7 11.7 - 15.5 G/DL [facility] (CLIA# [id number]) HCT (HEMATOCRIT) 43.2 35.0 - 45.0 % [facility] (CLIA# [id number]) MCV 85.7 80.0 - 100.0 FL [facility] (CLIA# [id number]) MCH 29.2 27.0 - 33.0 PG [facility] (CLIA# [id number]) MCHC 34.1 32.0 - 36.0 G/DL [facility] (CLIA# [id number]) BAND % 0 0 - 5 % [facility] (CLIA# [id number]) NEUTROPHIL % 43(L) 48 - 75 % [facility] (CLIA# [id number]) LYMPHOCYTE % 19 17 - 40 % [facility] (CLIA# [id number]) MONOCYTE % 2 0 - 14 % [facility] (CLIA# [id number]) EOSINOPHIL % 36(H) 0 - 5 % [facility] (CLIA# [id number]) BASOPHIL % 0 0 - 3 % [facility] (CLIA# [id number]) ATYPICAL LYMPHOCYTE % 0 0 - 5 % [facility] (CLIA# [id number]) RBC MORPHOLOGY NORM [facility] (CLIA# [id number]) PLATELETS 246 140 - 400 THOUS/UL [facility] (CLIA# [id number]) BANDS # 0 0 - 750 CELLS/MCL [facility] (CLIA# [id number]) NEUTROPHILS # 4773 1500 - 7800 CELLS/MCL [facility] (CLIA# [id number]) LYMPHOCYTES # 2109 850 - 3900 CELLS/MCL [facility] (CLIA# [id number]) MONOCYTES # 222 200 - 950 CELLS/MCL [facility] (CLIA# [id number]) EOSINOPHILS # 3996(H) 15 - 550 CELLS/MCL [facility] (CLIA# [id number]) BASOPHILS # 0 0 - 200 CELLS/MCL [facility] (CLIA# [id number]) ATYPICAL LYMPHOCYTES # 0 0 - 200 CELLS/MCL [facility] (CLIA# [id number]) RDW 13.5 11.0 - 15.0 % [facility] (CLIA# [id number]) MPV 7.4(L) 7.5 - 11.5 FL [facility] (CLIA# [id number]) 06/08/2007 06/08/2007 11: 42 AM EDT Narrative [facility] (CLIA# [id number]) - 06/08/2007 12:17 PM EDT Report Comments: ALTHOUGH AN AUTOMATED CBC WAS ORDERED, OUR INSTRUMENTATION DETECTED AN ABNORMALITY ON YOUR PATIENT'S SPECIMEN, REQUIRING US TO PERFORM A MANUAL REVIEW. us Regan Darling MD LAB SAME DAY RESULT Edited [facility] (CLIA# [id number]) [address] [place] [address] * (ABNORMAL) BASIC METABOLIC PANEL (06/08/2007) CALCIUM 9.3 8.6 - 10.2 MG/DL [facility] (CLIA# [id number]) BUN 34(H) 7 - 25 MG/DL [facility] (CLIA# [id number]) CREATININE 1.94(H) 0.50-1.30/ 1.20 MG/DL [facility] (CLIA# [id number]) BUN/Creatinine Ratio 18 6 - 25 [facility] (CLIA# [id number]) Glucose 111(H) 65 - 99 MG/DL [facility] (CLIA# [id number]) SODIUM 140 135 - 146 MMOL/L [facility] (CLIA# [id number]) POTASSIUM 4.2 3.5 - 5.3 MMOL/L [facility] (CLIA# [id number]) CHLORIDE 102 98 - 110 MMOL/L [facility] (CLIA# [id number]) CARBON DIOXIDE 22 21 - 33 MMOL/L [facility] (CLIA# [id number]) 06/08/2007 06/08/2007 11: 42 AM EDT Narrative [facility] (CLIA# [id number]) - 06/08/2007 12:17 PM EDT Report Comments: ALTHOUGH AN AUTOMATED CBC WAS ORDERED, OUR INSTRUMENTATION DETECTED AN ABNORMALITY ON YOUR PATIENT'S SPECIMEN, REQUIRING US TO PERFORM A MANUAL REVIEW. us Regan Darling MD LAB SAME DAY RESULT Final Re sult [facility] (CLIA# [id number]) [address] [place] [address] documented in this encounter Visit Diagnoses Diagnosis DEHYDRATION Dehydration FATIGUE Other malaise and fatigue documented in this encounter Additional Health Concerns Infection Onset Date Last Indicated Resolved Time COVID-19 Confirmed 07/11/2019 07/11/2019 0 8:12 PM EDT documented as of this encounter Care Teams Drip Box Tender Relationship Specialty Start Date End Date Alison Francis MD PCP - General 03/20/10 09/01/15 Alison Francis MD PCP - General 07/02/07 03/19/10 Regan Darling MD [address] [place] [id number] PCP - General 06/11/05 07/01/07 Shreyas Orellana MD [address] [place] [address] PCP - General Internal Medicine 09/02/15 07/07/19 Ashanti Kumar MD [address] [place] [address] PCP - General Family Medicine 07/08/19 07/09/19 Shreyas Orellana MD [address] [place] [place] [address] PCP - General Internal Medicine 07/10/19 09/06/19 Ashanti Kumar MD [address] [place] [address] PCP - General Family Medicine 09/07/19 07/12/20 Vale Walls NP [address] [place] [address] PCP - General Geriatrics 07/13/20 Chastity Cortes MD [address] [place] [address] PCP - Backup PCP Geriatrics 10/23/20 03/30/21 Vale Walls NP [address] [place] [address] PCP - Backup PCP Geriatrics 10/06/21 documented as of this encounter
--- OUTSIDE RECORDS SUMMARY | 2024-05-10 10:07 | XMS_ITS | Encounter Summary ---
Author Organization [facility] Address [address] [place] [address] Care Team Providers Care Ostrich Farm Worker Name Role Phone Vale Walls REMOTE ENCODING OPERATIONS SUPERVISOR Primary Care Provider [phone] Vale Walls REMOTE ENCODING OPERATIONS SUPERVISOR Unavailable [phone] Encounter Details Date Type Department Care Team ([facility] st Contact Info) Description 04/11/2022 Orders Only [facility] Cardiology [address] [facility] [address] [place] [address] Cornelio Barraza DO [address] [place], [place] [id number] Social History Tobacco Use Types Packs/Day Years Used Date Smoking Tobacco: Never Smokeless Tobacco: Never Alcohol Use Standard Drinks/Week Comments No 0 (1 standard drink = 0.6 oz pur e alcohol) PHQ-2 Answer Date Recorded PHQ-2 Score 0 12/20/2019 Comments No Sex and Gender Information Value Date Recorded Sex Assigned at Not on file Legal Sex Female 9:57 PM EDT Gender Identity Not on file Sexual Orientation Not on file Occupation Industry Job Start Date Job End Date 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 Author Blood Pressure < 140/90 Blood Pressure 158/66( 024 3:45 PM EST) Marsha Farah CMA documented as of this encounter Visit Diagnoses Diagnosis Mood disorder Unspecified episodic mood disorder documented in this encounter Care Teams Ostrich Farm Worker Relationship Specialty Start Date End Date Vale Walls NP [address] [place] [address] PCP - General Geriatrics 07/13/20 Vale Walls NP [address] [place] [address] PCP - Backup PCP Geriatrics 10/06/21 documented as of this encounter
--- OUTSIDE RECORDS SUMMARY | 2024-05-10 10:07 | XMS_ITS | Encounter Summary ---
Author Organization [facility] Address [address] [place] [address] Care Team Providers Care Animal Physiology Teacher Name Role Phone Vale Walls NP Primary Care Provider [phone] Vale Walls NP Unavailable [phone] Reason for Visit * Reason Comments E-prescribing Refill Request Encounter Details Date Type Department Care Team ([facility] st Contact Info) Description 11/28/2021 Refill [facility] [address] [place] [phone] Vale Walls NP [address] [place], [place] [phone] E-prescribing Refill Request Social History Tobacco Use [...] Start Date Job End Date 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 The most recent pharmacy on file was used. When is the medication needed? within 48 hours, will send routine message Past Appointments: Last CPE: 12/20/2019 Last appointment in this department: 10/06/2021 Future Appointments Date Time Provider Department Phone 12/03/21 10:30 AM Kayy Reid OD [facility] [phone] Pertinent lab results: No labs suggested for any medication orders signed or pended in this encounter. Refresh if any orders changed. BP Readings from Last 1 Encounters: 07/21/21 126/66 Pended medication order(s) and sent to provider. Patient expects medication renewal unless notifiedotherwise. Outstanding Radiology Orders Test Ordered Date Ordering Provider MAMMOGRAPHY BILATERAL (DX: SCREENING FOR BREAST CANCER Z12.31/ V76.12) (1 YR FROM LAST) 10/04/2016 Shreyas Orellana MD documented in this encounter Plan of Treatment Not on file documented as of this encounter Goals Goal Patient Goal Type Associated Problems Recent Progress Patient-Stated? Author Blood Pressure < 140/90 Blood Pressure 158/66( 024 3:45 PM EST) No Marsha Guzman CMA documented as of this encounter Visit Diagnoses Not on filedocumented in this encounter Care Teams Animal Physiology Teacher Relationship Specialty Start Date End Date Vale Walls NP [address] [place] [address] PCP - General Geriatrics 07/13/20 Vale Walls NP [address] [place] [address] PCP - Backup PCP Geriatrics 10/06/21 documented as of this encounter
--- OUTSIDE RECORDS SUMMARY | 2024-05-10 10:07 | XMS_ITS | Encounter Summary ---
Author Organization [facility] Address [address] [place] [address] Care Team Providers Care Rail Car Driver Name Role Phone Vale Walls NP Primary Care Provider [phone] Vale Walls MEDICAL DOCTOR Unavailable [phone] Encounter Details Date Type Department Care Team ([facility] st Contact Info) Description 04/11/2022 Orders Only [facility] Pre-Admission Testing [address] [address] Gail Barber, MEDICAL DOCTOR 123 [facility] [address] [place], [place] [phone] Social History Tobacco Use Types Packs/Day Years [...] Start Date Job End Date 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 Author Blood Pressure < 140/90 Blood Pressure 158/66( 024 3:45 PM EST) No Marsha Guzman CMA documented as of this encounter Procedures * Due to [place] law, this organization might not be sharing negative HIV tests. Procedure Name Priority Date/Time Associated Diagnosis Comments EKG-TO BE READ & BILLED BY ADULT OR PEDIATRIC CARDIOLOGY Routine 04/11/2022 11:48 AM EST Nuclear senile cataract of both eyes Hypertension, benign Other hyperlipidemia Arteriosclerosis of aorta Memory loss Seizures (HCC) Stage 2 chronic kidney disease Situational mixed anxiety and depressive disorder Mood disorder (HCC) CBC INCLUDES DIFFERENTIAL AND PLATELET COUNT Routine 04/11/2022 10:50 AM EST Preop examination Nuclear senile cataract of both eyes Hypertension, benign Other hyperlipidemia Arteriosclerosis of aorta Memory loss Seizures (HCC) Stage 2 chronic kidney disease Situational mixed anxiety and depressive disorder Mood disorder (HCC) BASIC METABOLIC PANEL WITH (GFR) Routine 04/11/2022 10:50 AM EST Preop examination Nuclear senile cataract of both eyes Hypertension, benign Other hyperlipidemia Arteriosclerosis of aorta Memory loss Seizures (HCC) Stage 2 chronic kidney disease Situational mixed anxiety and depressive disorder Mood disorder (HCC) documented in this encounter Results * Due to [place] law, this organization might not be sharing negative HIV tests. * EKG-TO BE READ & BILLED BY ADULT OR PEDIATRIC CARDIOLOGY (04/11/2022 11:48 AM EST) VENTRICULAR RATE 65 BPM MUS E EKG SYSTEM ATRIAL RATE 65 BPM MUSE EKG SYSTEM P-R INTERVAL 128 ms MUSE EK G SYSTEM QRS DURATION 76 ms MUSE EK G SYSTEM QT 408 ms MUSE EKG SYSTEM QTC 424 ms MUSE EKG SYSTEM P AXIS 9 degrees MUSE EKG SYSTEM R AXIS -4 degrees MUSE EKG SYSTEM T AXIS 28 degrees MUSE EKG SYSTEM EKG INTERPRETATION Normal sinus rhythm Minimal voltage criteria for LVH, may be normal variant Borderline ECG When compared with ECG of 04-DEC-2012 14:40, No significant change was found Confirmed by CONSTANTIN LING ([id number]) on 04/12/2022 1:35:46 PM MUSE EKG SYSTEM 04/11/2022 11:4 8 AM EST 04/12/2022 1:35 PM EST Gail S Sithole MEDICAL DOCTOR CARDIOVASCULAR-WITH INBSKT R TG Final Result MUSE EKG SYSTEM * CBC INCLUDES DIFFERENTIAL AND PLATELET COUNT (04/11/2022 10:50 AM EST) WBC 8.5 3.8 - 10.8 Thousand/u L [facility] RBC 5.08 3.80 - 5.10 Million/uL [facility] Hemoglobin 14.1 11.7 - 15.5 g/dL [facility] Hematocrit 41.8 35.0 - 45.0 % [facility] MCV 82.3 80.0 - 100.0 fL [facility] MCH 27.8 27.0 - 33.0 pg [facility] MCHC 33.7 32.0 - 36.0 g/dL [facility] RDW 13.1 11.0 - 15.0 % [facility] PLT 229 140 - 400 Thousand/u L [facility] MPV 9.5 7.5 - 12.5 fL [facility] Neutrophils # 5695 1500 - 7800 cells/uL [facility] Lymphocytes # 1913 850 - 3900 cells/uL [facility] Monocytes # 621 200 - 950 cells/uL [facility] Eosinophils # 213 15 - 500 cells/uL [facility] Basophils # 60 0 - 200 cells/uL [facility] Neutrophils % 67 % [facility] Lymphocytes % 22.5 % [facility] Monocytes % 7.3 % [facility] Eosinophils % 2.5 % [facility] Basophils % 0.7 % [facility] 04/11/2022 10:5 0 AM EST 04/11/2022 3:37 PM EST Narrative Resulting Agency Comment [id number] Gail S Sithole MEDICAL DOCTOR LAB SAME DAY RESULT Final Re sult [facility] [address] [place] [address] * BASIC METABOLIC PANEL WITH (GFR) (04/11/2022 10:50 AM EST) Glucose 94 65 - 99 mg/dL [facility] Comment:Fasting reference in terval Urea Nitrogen Blood (BUN) 22 7 - 25 mg/dL [facility] Creatinine 0.83 0.60 - 0.95 mg/dL [facility] EGFR 70 > OR = 60 mL/min/1. 73m2 [facility] Comment: The eGFR is based on the CKD-EPI 2020 equation. To calculate the new eGFR from a previous Creatinine or Cystatin C result, go to https://www.kidney.org/professionals/ kdoqi/gfr%5Fcalculator BUN/Creatinine Ratio NOT APPLICABLE 6 - 22 (calc) [facility] Sodium 138 135 - 146 mmol/L [facility] Potassium 4.4 3.5 - 5.3 mmol/L [facility] Chloride 106 98 - 110 mmol/L [facility] Carbon dioxide 24 20 - 32 mmol/L [facility] Calcium 9.3 8.6 - 10.4 mg/dL [facility] 04/11/2022 10:5 0 AM EST 04/11/2022 3:37 PM EST Narrative [facility] - 04/11/2022 7:27 PM EST Please note that this estimated GFR does [...] needs for GFR calculation. Resulting Agency Comment [id number] Gail Barber NP LABORATORY Final Result Performing Organization Address City/State/[facility] Co de Phone Number [facility] [address] [place] [address] documented in this encounter Visit Diagnoses Diagnosis Nuclear senile cataract of both eyes Hypertension, benign Essential hypertension, benign Other hyperlipidemia Arteriosclerosis of aorta Atherosclerosis of aorta Memory loss Seizures (HCC) Other convulsions Stage 2 chronic kidney disease Situational mixed anxiety and depressive disorder Adjustment disorder with mixed anxiety and depressed mood Mood disorder Unspecified episodic mood disorder Preop examination Preoperative examination, unspecified documented in this encounter Care Teams Rail Car Driver Relationship Specialty Start Date End Date Vale Walls NP [address] [place] [address] PCP - General Geriatrics 07/13/20 Vale Walls NP [address] [place] [address] PCP - Backup PCP Geriatrics 10/06/21 documented as of this encounter
--- OUTSIDE RECORDS SUMMARY | 2024-05-10 10:07 | XMS_ITS | Encounter Summary ---
Author Organization [facility] Address [address] [place] [address] Care Team Providers Care Crop Consultant Name Role Phone Alison Francis MD Primary Care Provider Shreyas Orellana MD Primary Care Provider UnavailAshanti Smith MD Primary Care Provider Shreyas Orellana MD Primary Care Provider UnavailAshanti Smith MD Primary Care Provider Vale Walls BAILIFF Primary Care Provider [phone] Chastity Cortes MD Unavailable Vale Walls BAILIFF Unavailable Encounter Details Date Type Department Care Team (Late st Contact Info) Description 12/15/2014 Orders Only July Internal Medicine [address] [place] [address] Alison Francis MD [address] [place] [address] Social History Tobacco Use Types Packs/Day Years [...] as of this encounter Progress Notes * Alison Francis - 12/18/2014 8:11 AM EDTQuick Note: Result letter was mailed to the patient today to address listed in demographics. documented in this encounter Plan of Treatment Not on file documented as of this encounter Goals Goal Patient Goal Type Associated Problems Recent Progress Patient-Stated? Author Blood Pressure < 140/90 Blood Pressure 158/66( 024 3:45 PM EST) No Marsha Guzman CMA documented as of this encounter Procedures * Due to [place] state law, this organization might not be sharing negative HIV tests. Procedure Name Priority Date/Time Associated Diagnosis Comments CBC INCLUDES DIFFERENTIAL AND PLATELET COUNT Routine 12/15/2014 11:14 AM EDT Routine general medical examination at a health care facility Screening for other disorders of blood and blood-forming organs THYROID CASCADING REFLEX Routine 12/15/2014 11:14 AM EDT Routine general medical examination at a health care facility Screening for thyroid disorder VITAMIN B12 (CYANOCOBALAMIN), SERUM Routine 12/15/2014 11:14 AM EDT Routine general medical examination at a health care facility Screening for endorine/nutritiona l/metabolic disease VITAMIN D, 25-HYDROXY, TOTAL, IMMUNOASSAY Routine 12/15/2014 11:14 AM EDT Routine general medical examination at a health care facility Unspecified vitamin D deficiency URINALYSIS, COMPLETE INCLUDES DIPSTICK AND MICROSCOPIC Routine 12/15/2014 11:14 AM EDT Routine general medical examination at a health care facility Hypertension LIPID PANEL WITH REFLEX TO DIRECT LDL Routine 12/15/2014 11:14 AM EDT Routine general medical examination at a health care facility Hyperlipidemia BASIC METABOLIC PANEL WITH (GFR) Routine 12/15/2014 11:14 AM EDT Routine general medical examination at a health care facility Encounter for long-term (current) use of high-risk medication documented in this encounter Results * Due to [place] state law, this organization might not be sharing negative HIV tests. * THYROID CASCADING REFLEX (12/15/2014 11:14 AM EDT) TSH 2.72 0.40 - 4.50 mIU/L [facility] Comment:{TSH {[id number]) INTERPRETATION SEE NOTE [facility] Comment: {INTERPRETATION {[id number]) TSH within normal range. Consistent with euthyroid patient. Interference from heterophilic antibodies (more common) or autoantibody (less common) should be considered when the TSH value does not fit the clinical picture. TSH with HAMA Treatment (test code 15254) or TSH Antibody (test code 41055) may help identify such interferences. 12/15/2014 11:1 4 AM EDT 12/15/2014 10:17 PM EDT Narrative Resulting Agency Comment [id number] Alison Francis MD LABORATORY Final Result [facility] [address] [place] [address] * (ABNORMAL) VITAMIN D, 25-HYDROXY, LC/MS/MS (12/15/2014 11:14 AM EDT) Vitamin D, 25-OH, Total 22(L) 30 - 100 ng/mL [facility] Comment: {VITAMIN D,25-OH,TOTAL,IA {[id number]) Vitamin D Status ? 25-OH Vitamin D: Deficiency: ?<20 ng/mL Insufficiency: ? 20 - 29 ng/mL Optimal: ? > or = 30 ng/mL For 25-OH Vitamin D testing on patients on D2-supplementation and patients for whom quantitation of D2 and D3 fractions is required, the QuestAssureD(TM) 25-OH VIT D, (D2,D3), LC/MS/MS is recommended: order code 71542 (patients >2yrs). For more information on this test, go to: http://education.iRewind/faq/YGS956 (This link is being provided for informational/educational purposes only.) 12/15/2014 11:1 4 AM EDT 12/15/2014 10:17 PM EDT Narrative Resulting Agency Comment [id number] us Alison Francis MD LABORATORY Final Result Performing Organization Address [facility] Co de Phone Number [facility] [address] [place] [address] * VITAMIN B12 (CYANOCOBALAMIN), SERUM (12/15/2014 11:14 AM EDT) Vitamin B12 (Cobalamins) 423 200 - 1100 pg/mL [facility] Comment:{VITAMIN B12 {[id number]) 12/15/2014 11:1 4 AM EDT 12/15/2014 10:17 PM EDT Narrative Resulting Agency Comment [id number] us Alison Francis MD LABORATORY Final Result Performing Organization Address [facility] de Phone Number [facility] [address] [place] [address] * BASIC METABOLIC PANEL WITH (GFR) (12/15/2014 11:14 AM EDT) Glucose 97 65 - 99 mg/dL [facility] Comment: {GLUCOSE {[id number]) ? Fasting reference interval Urea Nitrogen Blood (BUN) 21 7 - 25 mg/dL [facility] Comment:{UREA NITROGEN (BUN) {[id number]) Creatinine 0.80 0.60 - 0.93 mg/dL [facility] Comment: {CREATININE {[id number]) For patients >49 years of age, the reference limit for Creatinine is approximately 13% higher for people identified as -Salvadorean. GFR 72 > OR = 60 mL/min/1 .73m2 [facility] Comment:{eGFR NON-AFR. AMERI CAN {[id number]) GFR () 83 > OR = 60 mL/min/1 .73m2 [facility] Comment:{eGFR AMERIC AN {[id number]) BUN/Creatinine Ratio NOT APPLICABLE 6 - 22 (calc) [facility] Comment:{BUN/CREATININE RATI O {[id number]) Sodium 137 135 - 146 mmol/L [facility] Comment:{SODIUM {[id number]) Potassium 3.7 3.5 - 5.3 mmol/L [facility] Comment:{POTASSIUM {[id number]) Chloride 101 98 - 110 mmol/L [facility] Comment:{CHLORIDE {[id number]) Carbon dioxide 25 19 - 30 mmol/L [facility] Comment:{CARBON DIOXIDE {[id number]) Calcium 9.7 8.6 - 10.4 mg/dL [facility] Comment:{CALCIUM {[id number]) 12/15/2014 11:1 4 AM EDT 12/15/2014 [...] needs for GFR calculation. Resulting Agency Comment [id number] Alison Francis MD LABORATORY Final Result [facility] [address] [place] [address] * (ABNORMAL) LIPID PANEL WITH REFLEX TO DIRECT LDL (12/15/2014 11:14 AM EDT) Cholesterol 219(H) 125 - 200 mg/dL [facility] Comment:{CHOLESTEROL, TOTAL {[id number]) HDL Cholesterol 49 > OR = 46 mg/dL [facility] Comment:{HDL CHOLESTEROL {[id number]) Triglyceride 165(H) <150 mg/dL [facility] Comment:{TRIGLYCERIDES {[id number]) LDL Cholesterol 137(H) <130 mg/dL (calc) [facility] Comment: {LDL-CHOLESTEROL {[id number]) Desirable range <100 mg/dL for patients with CHD or diabetes and <70 mg/dL for diabetic patients with known heart disease. CHOL/HDL Ratio 4.5 < OR = 5.0 (calc) [facility] Comment:{CHOL/HDLC RATIO {[id number]) Cholesterol Non-HDL 170(H) mg/dL (calc) [facility] Comment: {NON HDL CHOLESTEROL {[id number]) Target for non-HDL cholesterol is 30 mg/dL higher than LDL cholesterol target. 12/15/2014 11:1 4 AM EDT 12/15/2014 10:17 PM EDT Narrative Resulting Agency Comment [id number] us Alison Francis MD LABORATORY Final Result [facility] [address] [place] [address] * URINALYSIS, COMPLETE INCLUDES DIPSTICK AND MICROSCOPIC (12/15/2014 11:14 AM EDT) Color (Urine) YELLOW YELLOW [facility] Comment:{COLOR {[id number]) Appearance (Urine) CLEAR CLEAR [facility] Comment:{APPEARANCE {[id number]) Specific gravity (Urine) 1.014 1.001 - 1.035 [facility] Comment:{SPECIFIC GRAVITY {[id number]) pH (Urine) 6.5 5.0 - 8.0 [facility] Comment:{PH {[id number]) Glucose (Urine) NEGATIVE NEGATIVE [facility] Comment:{GLUCOSE {[id number]) Bilirubin (Urine) NEGATIVE NEGATIVE [facility] Comment:{BILIRUBIN {[id number]) Ketones (Urine) NEGATIVE NEGATIVE [facility] Comment:{KETONES {[id number]) Hemoglobin (Urine) NEGATIVE NEGATIVE [facility] Comment:{OCCULT BLOOD {[id number]) Protein (Urine) NEGATIVE NEGATIVE [facility] Comment:{PROTEIN {[id number]) Nitrite (Urine) NEGATIVE NEGATIVE [facility] Comment:{NITRITE {[id number]) Leukocyte esterase (Urine) NEGATIVE NEGATIVE [facility] Comment:{LEUKOCYTE ESTERASE {[id number]) WBC (Urine) NONE SEEN < OR = 5 /HPF [facility] Comment:{WBC {[id number]) RBC (Urine Sed) NONE SEEN < OR = 2 /HPF [facility] Comment:{RBC {[id number]) Epithelial cells.squamous (Urine sed) 0-5 < OR = 5 /HPF [facility] Comment:{SQUAMOUS EPITHELIAL CELLS {[id number]) Bacteria (Urine) NONE SEEN NONE SEEN /HPF [facility] Comment:{BACTERIA {[id number]) Hyaline casts (Urine sed) NONE SEEN NONE SEEN /LPF [facility] Comment:{HYALINE CAST {[id number]) Service comment 01 SEE NOTE [facility] Comment: {COMMENTS {[id number]) The above test was performed; ??evaluate the urinalysis results with caution. ??The urine specimen was received without a preservative. ??Deterioration of formed elements and/or alteration of chemical constituents may have occurred. 12/15/2014 11:1 4 AM EDT 12/15/2014 10:17 PM EDT Narrative Resulting Agency Comment [id number] us Alison Francis MD LAB SAME DAY RESULT Final Resul t [facility] [address] [place] [address] * CBC INCLUDES DIFFERENTIAL AND PLATELET COUNT (12/15/2014 11:14 AM EDT) WBC 6.6 3.8 - 10.8 Thousand/u L [facility] Comment:{WHITE BLOOD CELL CO UNT {[id number]) RBC 4.98 3.80 - 5.10 Million/uL [facility] Comment:{RED BLOOD CELL COUN T {[id number]) Hemoglobin 14.3 11.7 - 15.5 g/dL [facility] Comment:{HEMOGLOBIN {[id number]) Hematocrit 44.0 35.0 - 45.0 % [facility] Comment:{HEMATOCRIT {[id number]) MCV 88.2 80.0 - 100.0 fL [facility] Comment:{MCV {[id number]) MCH 28.8 27.0 - 33.0 pg [facility] Comment:{MCH {[id number]) MCHC 32.6 32.0 - 36.0 g/dL [facility] Comment:{MCHC {[id number]) RDW 13.9 11.0 - 15.0 % [facility] Comment:{RDW {[id number]) PLT 208 140 - 400 Thousand/u L [facility] Comment:{PLATELET COUNT {[id number]) MPV 8.3 7.5 - 11.5 fL [facility] Comment:{MPV {[id number]) Neutrophils # 3505 1500 - 7800 cells/uL [facility] Comment:{ABSOLUTE NEUTROPHIL S {[id number]) Lymphocytes # 2409 850 - 3900 cells/uL [facility] Comment:{ABSOLUTE LYMPHOCYTE S {[id number]) Monocytes # 495 200 - 950 cells/uL [facility] Comment:{ABSOLUTE MONOCYTES {[id number]) Eosinophils # 139 15 - 500 cells/uL [facility] Comment:{ABSOLUTE EOSINOPHIL S {[id number]) Basophils # 53 0 - 200 cells/uL [facility] Comment:{ABSOLUTE BASOPHILS {[id number]) Neutrophils % 53.1 % [facility] Comment:{NEUTROPHILS {[id number]) Lymphocytes % 36.5 % [facility] Comment:{LYMPHOCYTES {[id number]) Monocytes % 7.5 % [facility] Comment:{MONOCYTES {[id number]) Eosinophils % 2.1 % [facility] Comment:{EOSINOPHILS {[id number]) Basophils % 0.8 % [facility] Comment:{BASOPHILS {[id number]) 12/15/2014 11:1 4 AM EDT 12/15/2014 10:17 PM EDT Narrative Resulting Agency Comment [id number] us Alison Francis MD LAB SAME DAY RESULT Final Resul t [facility] [address] [place] [address] documented in this encounter Visit Diagnoses Diagnosis [...] documented as of this encounter Care Teams Crop Consultant Relationship Specialty Start Date End Date Alison Francis MD PCP - General 03/20/10 09/01/15 Shreyas Orellana MD PCP - General Internal Medicine 09/02/15 07/07/19 Ashanti Kumar MD PCP - General Family Medicine 07/08/19 07/09/19 Shreyas Orellana MD PCP - General Internal Medicine 07/10/19 09/06/19 Ashanti Kumar MD PCP - General Family Medicine 09/07/19 07/12/20 Vale Walls NP [address] [place] [address] PCP - General Geriatrics 07/13/20 Chastity Cortes MD [address] [place] [address] PCP - Backup PCP Geriatrics 10/23/20 03/30/21 Vale Walls NP [address] [place] [address] PCP - Backup PCP Geriatrics 10/06/21 documented as of this encounter
--- OUTSIDE RECORDS SUMMARY | 2024-05-10 10:07 | XMS_ITS | Encounter Summary ---
Author Organization [facility] Address [address] [place] [address] Care Team Providers Care Mortising Machine Operator Name Role Phone Alison Francis MD Primary Care Provider Shreyas Orellana MD Primary Care Provider UnavailAshanti Smith MD Primary Care Provider [phone] Shreyas Orellana MD Primary Care Provider UnavailAshanti Smith MD Primary Care Provider Vale Walls HOSPITAL ADMINISTRATIVE ASSISTANT Primary Care Provider Chastity Cortes MD Unavailable Vale Walls HOSPITAL ADMINISTRATIVE ASSISTANT Unavailable Reason for Visit * Reason Comments E-prescribing Refill Request Encounter Details Date Type Department Care Team (Late st Contact Info) Description 03/30/2014 Refill July Internal Medicine [address] [place] [phone] Alison Francis MD [address] [place] [address] E-prescribing Refill Request Social History Tobacco Use [...] encounter Miscellaneous Notes * Telephone Encounter - Marsha Guzman MA - 03/31/2014 9:42 AM EST Faxed/E-prescribed medication renewal request(s) for Carlene Rose 73 y.o. female received from pharmacy. Verified and Confirmed pharmacy for patient. Any special requests or concerns?- Based on last lab testing intervals, 1 month supply suggested for potassium, diuretics, GABBI inhibitors and ARBs. Please arrange updated lab monitoring. Last CPE with this specialty: 02/24/2011 Last OV with this specialty: 08/28/2013 Next OV: Future Appointments Date Time Provider Department Center 06/06/2014 9:00 AM Alison Francis MD [facility] Pertinent lab results: Lab Results Component Value [...] positive 12/10/2012 ??? CHRONIC RENAL INSUFFICIENCY xx0.39xx 10/25/2011 ??? Vitamin B12 deficiency 08/26/2010 ??? [...] MG Tab TAKE 1 TABLET BY MOUTH DAILY 90 Tab 1 ??? Furosemide 20 MG Tab Take 1 [...] documented as of this encounter Care Teams Mortising Machine Operator Relationship Specialty Start Date End Date Alison Francis MD PCP - General 03/20/10 09/01/15 Shreyas Orellana MD PCP - General Internal Medicine 09/02/15 07/07/19 Ashanti Kumar MD PCP - General Family Medicine 07/08/19 07/09/19 Shreyas Orellana MD PCP - General Internal Medicine 07/10/19 09/06/19 Ashanti Kumar MD PCP - General Family Medicine 09/07/19 07/12/20 Vale Walls NP [address] [place] [address] PCP - General Geriatrics 07/13/20 Chastity Cortes MD [address] [place] [address] PCP - Backup PCP Geriatrics 10/23/20 03/30/21 Vale Walls NP [address] [place] [address] PCP - Backup PCP Geriatrics 10/06/21 documented as of this encounter
--- OUTSIDE RECORDS SUMMARY | 2024-05-10 10:07 | XMS_ITS | Encounter Summary ---
Author Organization [facility] Address [address] [place] [address] Care Team Providers Care Manager Product Name Role Phone Vale Walls NP Primary Care Provider [phone] Vale Walls NP Unavailable [phone] Encounter Details Date Type Department Care Team ([facility] Contact Info) Description 11/14/2022 Orders Only [facility] [address] [place] [address] Vale Walls PUBLIC HEALTH NURSE [address] [place], [place] [id number] Social History Tobacco Use Types Packs/Day Years Used Date Smoking Tobacco: Never Smokeless Tobacco: Never Alcohol Use Standard Drinks/Week Comments No 0 (1 standard drink = 0.6 oz pur e alcohol) PHQ-2 Answer Date Recorded PHQ-2 Score 0 12/20/2019 Intimate Partner Violence Answer Date R ecorded Fear of Current or Ex-Partner Not on file Emotionally Abused Not on file 10/31/2022 Physically Abused Not on file 10/31/2022 Sexually Abused Not on file 10/31/2022 Feel Safe at Home Not on file 10/31/2022 Comments No Sex and Gender Information Value Date Recorded Sex Assigned at Not on file Legal Sex Female 9:57 PM EDT Gender Identity Not on file Sexual Orientation Not on file Occupation Industry Job Start Date Job End Date 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 Please have patient increase Vitamin D to 2000 units daily. documented in this encounter Plan of Treatment Not on file documented as of this encounter Goals Goal Patient Goal Type Associated Problems Recent Progress Patient-Stated? Author Blood Pressure < 140/90 Blood Pressure 158/66( 024 3:45 PM EST) No Marsha Guzman CMA documented as of this encounter Procedures * Due to [place] [employer] law, this organization might not be sharing negative HIV tests. Procedure Name Priority Date/Time Associated Diagnosis Comments VITAMIN B12 (CYANOCOBALAMIN), SERUM Routine 11/14/2022 10:50 AM EDT Vitamin B12 deficiency VITAMIN D, 25-HYDROXY, TOTAL, IMMUNOASSAY Routine 11/14/2022 10:50 AM EDT Vitamin D Defiency documented in this encounter Results * Due to [place] [employer] law, this organization might not be sharing negative HIV tests. * (ABNORMAL) VITAMIN D, 25-HYDROXY, TOTAL, IMMUNOASSAY (11/14/2022 10:50 AM EDT) Vitamin D, 25-OH, Total 28(L) 30 - 100 ng/mL [facility] Comment: Vitamin D Status ? 25-OH Vitamin D: Deficiency: ?<20 ng/mL Insufficiency: ? 20 - 29 ng/mL Optimal: ? > or = 30 ng/mL For 25-OH Vitamin D testing on patients on D2-supplementation and patients for whom quantitation of D2 and D3 fractions is required, the QuestAssureD(TM) 25-OH VIT D, (D2,D3), LC/MS/MS is recommended: order code [id number] (patients >2yrs). See Note 1 Note 1 For additional information, please refer to http://education.SRL Global/faq/NHF114 (This link is being provided for informational/ educational purposes only.) 11/14/2022 10:5 0 AM EDT 11/14/2022 10:58 PM EDT Narrative Resulting Agency Comment [id number] us Vale Walls PUBLIC HEALTH NURSE LABORATORY Final Resul t Performing Organization Address City/[facility] Co de Phone Number [facility] [address] [place] [address] * (ABNORMAL) VITAMIN B12 (CYANOCOBALAMIN), SERUM (11/14/2022 10:50 AM EDT) Vitamin B12 (Cobalamins) 1197(H) 200 - 1100 pg/mL [facility] 11/14/2022 10:5 0 AM EDT 11/14/2022 10:58 PM EDT Narrative Resulting Agency Comment [id number] Vale Walls PUBLIC HEALTH NURSE LABORATORY Final Resul t Performing Organization Address [facility] Co de Phone Number [facility] [address] [place] [address] documented in this encounter Visit Diagnoses Diagnosis Vitamin B12 deficiency Other B-complex deficiencies Vitamin D Defiency documented in this encounter Care Teams Manager Product Relationship Specialty Start Date End Date Vale Walls NP [address] [place] [address] PCP - General Geriatrics 07/13/20 Vale Walls NP [address] [place] [address] PCP - Backup PCP Geriatrics 10/06/21 documented as of this encounter
--- OUTSIDE RECORDS SUMMARY | 2024-05-10 10:07 | XMS_ITS | Encounter Summary ---
Author Organization [facility] Address [address] [place] [address] Care Team Providers Care Swimming Pool Maintenance Name Role Phone Alison Francis MD Primary Care Provider Shreyas Orellana MD Primary Care Provider UnavailAshanti Smith MD Primary Care Provider Shreyas Orellana MD Primary Care Provider UnavailAshanti Smith MD Primary Care Provider Vale Walls NDT INSPECTOR Primary Care Provider Chastity Cortes MD Unavailable [phone] Vale Walls NDT INSPECTOR Unavailable Encounter Details Date Type Department Care Team (Late st Contact Info) Description 05/13/2015 Orders Only July Internal Medicine [address] [place] [address] Alison Francis MD [address] [place] [address] Social History Tobacco Use Types Packs/Day Years [...] Pressure 158/66( 024 3:45 PM EST) Marsha FarahJESSICA documented as of this encounter Visit Diagnoses Not on filedocumented in this encounter Additional Health Concerns Infection Onset Date Last Indicated Resolved Time COVID-19 Confirmed 07/11/2019 07/11/2019 0 8:12 PM EDT documented as of this encounter Care Teams Swimming Pool Maintenance Relationship Specialty Start Date End Date Alison Francis MD PCP - General 03/20/10 09/01/15 Shreyas Orellana MD PCP - General Internal Medicine 09/02/15 07/07/19 Ashanti Kumar MD PCP - General Family Medicine 07/08/19 07/09/19 Shreyas Orellana MD PCP - General Internal Medicine 07/10/19 09/06/19 Ashanti Kumar MD PCP - General Family Medicine 09/07/19 07/12/20 Vale Walls NP [address] [place] [address] PCP - General Geriatrics 07/13/20 Chasitty Cortes MD [address] [place] [address] PCP - Backup PCP Geriatrics 10/23/20 03/30/21 Vale Walls NP [address] [place] [address] PCP - Backup PCP Geriatrics 10/06/21 documented as of this encounter
--- OUTSIDE RECORDS SUMMARY | 2024-05-10 10:08 | XMS_ITS | Encounter Summary ---
Author Organization [facility] Address [address] [place] [address] Care Team Providers Care Home Health Scheduler Name Role Phone Ashanti Kumar MD Primary Care Provider Vale Walls COMPUTER ENGINEER Primary Care Provider Chastity Cortes MD Unavailable [phone] Vale Walls COMPUTER ENGINEER Unavailable [phone] Encounter Details Date Type Department Care Team (Late st Contact Info) Description 01/31/2020 Orders Only [facility] [address] [place] [phone] Mirna Almaraz, RN [address] [place] [address] Social History Tobacco Use Types Packs/Day Years [...] Start Date Job End Date 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 No / Unsure 01/31/2020 1:13 PM EST documented as of this encounter Plan of Treatment Not on file documented as of this encounter Goals Goal Patient Goal Type Associated Problems Recent Progress Patient-Stated? Author Blood Pressure < 140/90 Blood Pressure 158/66( 024 3:45 PM EST) No Marsha Guzman CMA documented as of this encounter Procedures * Due to [facility] law, this organization might not be sharing negative HIV tests. Procedure Name Priority Date/Time Associated Diagnosis Comments VENIPUNCTURE Routine 01/31/2020 1:50 PM EST Hypertension documented in this encounter Results * Due to [place] [employer] law, this organization might not be sharing negative HIV tests. * (ABNORMAL) BASIC METABOLIC PANEL WITH (GFR) (01/31/2020 1:50 PM EST) Glucose 91 65 - 99 mg/dL [facility] Comment:Fasting reference in terval Urea Nitrogen Blood (BUN) 21 7 - 25 mg/dL [facility] Creatinine 0.90(H) 0.60 - 0.88 mg/dL [facility] Comment: For patients >49 years of age, the reference limit for Creatinine is approximately 13% higher for people identified as -Peruvian. EGFR 60 > OR = 60 mL/min/1. 73m2 [facility] GFR () 69 > OR = 60 mL/min/1. 73m2 [facility] BUN/Creatinine Ratio 23(H) 6 - 22 (calc) [facility] Sodium 136 135 - 146 mmol/L [facility] Potassium 4.1 3.5 - 5.3 mmol/L [facility] Chloride 106 98 - 110 mmol/L [facility] Carbon dioxide 19(L) 20 - 32 mmol/L [facility] Calcium 9.0 8.6 - 10.4 mg/dL [facility] 01/31/2020 1:50 PM EST 01/31/2020 2:52 PM EST Narrative [facility] - 01/31/2020 8:02 PM EST Please note that this estimated [...] needs for GFR calculation. Resulting Agency Comment [id number] us Andrew Davis MD LABORATORY Final Result [facility] [address] [place] [address] documented in this encounter Visit Diagnoses Diagnosis Hypertension Essential hypertension, benign documented in this encounter Care Teams Home Health Scheduler Relationship Specialty Start Date End Date Ashanti Kumar MD PCP - General Family Medicine 09/07/19 07/12/20 Vale Walls NP [address] [place] [address] PCP - General Geriatrics 07/13/20 Chastity Cortes MD [address] [place] [address] PCP - Backup PCP Geriatrics 10/23/20 03/30/21 Vale Walls NP [address] [place] [address] PCP - Backup PCP Geriatrics 10/06/21 documented as of this encounter
--- OUTSIDE RECORDS SUMMARY | 2024-05-10 10:08 | XMS_ITS | Encounter Summary ---
Author Organization [facility] Address [address] [place] [address] Care Team Providers Care Caser Name Role Phone Alison Francis MD Primary Care Provider Shreyas Orellana MD Primary Care Provider UnavailAshanti Smith MD Primary Care Provider [phone] Shreyas Orellana MD Primary Care Provider UnavailAshanti Smith MD Primary Care Provider Vale Walls GLOBAL ACCOUNT MANAGER Primary Care Provider Chastity Cortes MD Unavailable [phone] Vale Walls GLOBAL ACCOUNT MANAGER Unavailable Encounter Details Date Type Department Care Team (Late st Contact Info) Description 08/22/2011 Orders Only [facility] [address] [place] [address] Alison Francis MD [address] [place] [id number] Social History Tobacco Use Types Packs/Day Years [...] encounter Progress Notes * Alison Francis - 08/24/2011 1:46 PM EDTQuick Note: On cipro -rx given at ov documented in this encounter Plan of Treatment Not on file documented as of this encounter Procedures * Due to [facility] law, this organization might not be sharing negative HIV tests. Procedure Name Priority Date/Time Associated Diagnosis Comments URINALYSIS, DIP ONLY STAT (All results called to provider) 08/22/2011 9:17 AM EDT UTI (urinary tract infection), uncomplicated CULTURE, URINE, ROUTINE Routine 08/22/2011 9:07 AM EDT UTI (urinary tract infection), uncomplicated URINALYSIS, MICROSCOPIC Routine 08/22/2011 9:07 AM EDT UTI (urinary tract infection), uncomplicated documented in this encounter Results * Due to [place] [employer] law, this organization might not be sharing negative HIV tests. * (ABNORMAL) URINALYSIS, DIP ONLY ( SITE STAT ONLY) (08/22/2011 9:17 AM EDT) COLOR (URINE) YELLOW [facility] (CLIA# [id number]) APPEARANCE (URINE) CLOUDY(A) [facility] (CLIA# [id number]) SPECIFIC GRAVITY 1.020 1.001 - 1.035 [facility] (CLIA# [id number]) PH (URINE) 6.5 5.0 - 8.0 [facility] (CLIA# [id number]) PROTEIN (URINE) TRACE(A) Neg [facility] (CLIA# [id number]) GLUCOSE (URINE) NEGATIVE Neg [facility] (CLIA# [id number]) Ketones (Urine) NEGATIVE Neg [facility] (CLIA# [id number]) BILIRUBIN (URINE) NEGATIVE Neg [facility] (CLIA# [id number]) BLOOD (URINE) 3+(A) Neg [facility] (CLIA# [id number]) WBC (URINE) 3+(A) Neg [facility] (CLIA# [id number]) NITRITE (URINE) NEGATIVE Neg [facility] (CLIA# [id number]) Urine specimen (specimen) 08/22/2011 9:17 AM EDT Narrative [facility] (CLIA# [id number]) - 08/22/2011 9:18 AM EDT Culture already ordered per provider. Micro added. Alison Francis MD LAB SAME DAY RESULT Final Resul t [facility] (CLIA# [id number]) [address] [place] [address] * (ABNORMAL) URINALYSIS, MICROSCOPIC (08/22/2011 9:07 AM EDT) WBC (Urine) > OR = 60(A) < OR = 5 /HPF [facility] Comment:{WBC {[id number]) RBC (Urine Sed) 4-10(A) < OR = 3 /HPF [facility] Comment:{RBC {[id number]) Epithelial cells.squamous (Urine sed) 0-5 < OR = 5 /HPF [facility] Comment:{SQUAMOUS EPITHELIAL CELLS {[id number]) Bacteria (Urine) NONE SEEN NONE SEEN /HPF [facility] Comment:{BACTERIA {[id number]) Hyaline casts (Urine sed) NONE SEEN NONE SEEN /LPF [facility] Comment:{HYALINE CAST {[id number]) Service comment 01 SEE NOTE [facility] Comment: {NOTE {[id number]) This urine was analyzed for the presence of WBC, RBC, bacteria, casts, and other formed elements. Only those elements seen were reported. 08/22/2011 9:07 AM EDT 08/22/2011 12:50 PM EDT Narrative Resulting Agency Comment [id number] us Alison Francis MD LAB SAME DAY RESULT Final Resul t [facility] [address] [place] [address] * (ABNORMAL) CULTURE, URINE, ROUTINE (08/22/2011 9:07 AM EDT) Bacteria culture (Urine) SEE NOTE(A) [facility] Comment: {CULTURE, URINE, ROUTINE {[id number]) ??CULTURE, URINE, ROUTINE ??MICRO NUMBER: ?[id number] ??TEST STATUS: ? FINAL ??SPECIMEN SOURCE: ?? URINE ??SPECIMEN QUALITY: ??ADEQUATE ??RESULT: ?Greater than 100,000 CFU/mL of Escherichia coli ?E.coli ?INT ?? VAN ?? AMPICILLIN ? S ? <=2 ?? AMP/SULBACTAM ?S ? <=2 ?? CEFAZOLIN ?S ? <=4 ?? CEFEPIME ? S ? <=1 ?? CEFTRIAXONE ?S ? <=1 ?? CIPROFLOXACIN ?S ? <=0.25 ?? ERTAPENEM ?S ? <=0.5 ?? GENTAMICIN ? S ? <=1 ?? IMIPENEM ? S ? <=1 ?? LEVOFLOXACIN ? S ? <=0.12 ?? NITROFURANTOIN ? S ? <=16 ?? TOBRAMYCIN ? S ? <=1 ?? TRIMETHOPRIM/SULFA ? S ? <=20 Legend: S = Susceptible ??I = Intermediate ??R = Resistant ??NS = Not Susceptible * = Not Tested ??NR = Not Reported ??nn = See Therapy Comments 08/22/2011 9:07 AM EDT 08/22/2011 12:50 PM EDT Narrative Resulting Agency Comment [id number] Alison Francis MD LABORATORY Final Result [facility] [address] [place] [address] documented in this encounter Visit Diagnoses Diagnosis UTI (urinary tract infection), uncomplicated- Primary Urinary tract infection, site not specified documented in this encounter Additional Health Concerns Infection Onset Date Last Indicated Resolved Time COVID-19 Confirmed 07/11/2019 07/11/2019 0 8:12 PM EDT documented as of this encounter Care Teams Caser Relationship Specialty Start Date End Date Alison Francis MD PCP - General 03/20/10 09/01/15 Shreyas Orellana MD PCP - General Internal Medicine 09/02/15 07/07/19 Ashanti Kumar MD PCP - General Family Medicine 07/08/19 07/09/19 Shreyas Orellana MD PCP - General Internal Medicine 07/10/19 09/06/19 Ashanti Kumar MD PCP - General Family Medicine 09/07/19 07/12/20 Vale Walls NP [address] [place] [address] PCP - General Geriatrics 07/13/20 Chastity Cortes MD [address] [place] [address] PCP - Backup PCP Geriatrics 10/23/20 03/30/21 Vale aWlls NP [address] [place] [address] PCP - Backup PCP Geriatrics 10/06/21 documented as of this encounter
--- OUTSIDE RECORDS SUMMARY | 2024-05-10 10:08 | XMS_ITS | Encounter Summary ---
Author Organization [facility] Address [address] [place] [address] Care Team Providers Care Audio Visual Tech Name Role Phone Vale Walls LEAD MANUFACTURING ENGINEER Primary Care Provider [phone] CouVale badillo LEAD MANUFACTURING ENGINEER Unavailable [phone] Reason for Visit * Reason Comments Med Change Request Encounter Details Date Type Department Care Team ([facility] Contact Info) Description 04/05/2024 [facility] Orthopedic Surgery [address] [address] Fady Breg MD [address] [place] [address] Med Change Request Social History Tobacco Use Types Packs/Day [...] Start Date Job End Date 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 Author Blood Pressure < 140/90 Blood Pressure 158/66( 024 3:45 PM EST) No Marsha Guzman CMA documented as of this encounter Visit Diagnoses Not on filedocumented in this encounter Care Teams Audio Visual Tech Relationship Specialty Start Date End Date Vale Walls NP [address] [place] [address] PCP - General Geriatrics 07/13/20 Vale Walls NP [address] [place] [address] PCP - Backup PCP Geriatrics 10/06/21 documented as of this encounter
--- OUTSIDE RECORDS SUMMARY | 2024-05-10 10:08 | XMS_ITS | Encounter Summary ---
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 SC * Result Encounter Note - Vale Walls NP - 11/09/2020 10:53 AM EDT Noted. SC documented in this encounter Plan of Treatment Not on file documented as of this encounter Goals Goal Patient Goal Type Associated Problems Recent Progress Patient-Stated? Author Blood Pressure < 140/90 Blood Pressure 158/66( 024 3:45 PM EST) No Marsha Guzman CMA documented as of this encounter Procedures * Due to [place] [employer] law, this organization might not be sharing negative HIV tests. Procedure Name Priority Date/Time Associated Diagnosis Comments URIC ACID, SERUM Routine 11/09/2020 10:5 3 AM EDT Right foot pain VENIPUNCTURE Routine 11/09/2020 10:53 AM EDT Memory loss VITAMIN D, 25-HYDROXY, TOTAL, IMMUNOASSAY Routine 11/09/2020 10:53 AM EDT Vitamin D Defiency documented in this encounter Results * Due to [place] [employer] law, this organization might not be sharing negative HIV tests. * VITAMIN D, 25-HYDROXY, TOTAL, IMMUNOASSAY (11/09/2020 10:53 AM EDT) Vitamin D, 25-OH, Total 35 30 - 100 ng/mL [facility] Comment: Vitamin D Status ? 25-OH Vitamin D: Deficiency: ?<20 ng/mL Insufficiency: ? 20 - 29 ng/mL Optimal: ? > or = 30 ng/mL For 25-OH Vitamin D testing on patients on D2-supplementation and patients for whom quantitation of D2 and D3 fractions is required, the [facility]() 25-OH VIT D, (D2,D3), LC/MS/MS is recommended: order code [id number] (patients >2yrs). See Note 1 Note 1 For additional information, please refer to http://education.[employer] Sound/faq/XVQ450 (This link is being provided for informational/ educational purposes only.) 11/09/2020 10:5 3 AM EDT 11/09/2020 12:10 PM EDT Narrative Resulting Agency Comment [id number] Vale Walls TITLE I INSTRUCTIONAL ASSISTANT LABORATORY Final Resul t Performing Organization Address [facility] Co de Phone Number [facility] [address] [place] [address] * URIC ACID, SERUM (11/09/2020 10:53 AM EDT) Uric Acid Serum 5.0 2.5 - 7.0 mg/dL [facility] Comment:Therapeutic target f or gout patients: <6.0 mg/dL 11/09/2020 10:5 3 AM EDT 11/09/2020 12:10 PM EDT Narrative Resulting Agency Comment [id number] Vale Walls TITLE I INSTRUCTIONAL ASSISTANT LABORATORY Final Resul t Performing Organization Address [facility] de Phone Number [facility] [address] [place] [address] * THYROID STIMULATING HORMONE (TSH) WITH FREE T4 REFLEX, SERUM (11/09/2020 10:53 AM EDT) TSH 1.80 0.40 - 4.50 mIU/L [facility] 11/09/2020 10:5 3 AM EDT 11/09/2020 12:10 PM EDT Narrative Resulting Agency Comment [id number] Vale Walls TITLE I INSTRUCTIONAL ASSISTANT LABORATORY Final Resul t Performing Organization Address [facility] Co de Phone Number [facility] [address] [place] [address] documented in this encounter Visit Diagnoses Diagnosis Memory loss Right foot pain Pain in limb Vitamin D Defiency documented in this encounter Care Teams Shaper Setter Relationship Specialty Start Date End Date Vale Walls NP [address] [place] [address] PCP - General Geriatrics 07/13/20 Chastity Cortes MD [address] [place] [address] PCP - Backup PCP Geriatrics 10/23/20 03/30/21 Vale Walls NP [address] [place] [address] PCP - Backup PCP Geriatrics 10/06/21 documented as of this encounter
--- OUTSIDE RECORDS SUMMARY | 2024-05-10 10:08 | XMS_ITS | Encounter Summary ---
Author Organization [facility] Address [address] [place] [address] Care Team Providers Care Director Day Care Center Name Role Phone Alison Francis MD Primary Care Provider [phone] Shreyas Orellana MD Primary Care Provider UnavailAshanti Smith MD Primary Care Provider [phone] Shreyas Orellana MD Primary Care Provider UnavailAshanti Smith MD Primary Care Provider [phone] Vale Walls FITNESS CENTRE MANAGER Primary Care Provider [phone] Chastity Cortes MD Unavailable [phone] Vale Walls FITNESS CENTRE MANAGER Unavailable [phone] Reason for Visit * Reason Onset Date Comments Dizziness 08/29/2011 Encounter Details Date Type Department Care Team (Late st Contact Info) Description 08/29/2011 Telephone [facility] [address] [place] [address] Alison Francis MD [address] [place] [address] Dizziness Social History Tobacco Use Types Packs/Day Years [...] encounter Miscellaneous Notes * Telephone Encounter - Joan Malloy RN - 08/29/2011 11:01 AM EDT Pt aware of information will go to er but not by ambulance will have her daughter bring her shortly, nurse spoke to daughter who is on her way now to [facility] Advised for pt and daughter to call back philip if any changes or pt will agree to go by ambulance Pt very appreciative declines any distress at this time [facility] er triage notified fyi * Telephone Encounter - Alison Francis - 08/29/2011 10:40 AM EDT Pls refer patient to ER for immediate eval - will need a CAT scan. * Telephone Encounter - Sara Henderson - 08/29/2011 9:[address] Francis: Pt is calling back this morning, states seeing provider for 08/26/11. Pt is calling back states feeling light headedness and dizziness. Pt states she is having some blurry vision. Pt states she is not feeling herself. Pt is requesting x-rays of head or face. Please advise. documented in this encounter Plan of Treatment Not on file documented as of this encounter Visit Diagnoses Not on filedocumented in this encounter Additional Health Concerns Infection Onset Date Last Indicated Resolved Time COVID-19 Confirmed 07/11/2019 07/11/2019 0 8:12 PM EDT documented as of this encounter Care Teams Director Day Care Center Relationship Specialty Start Date End Date Alison Francis MD PCP - General 03/20/10 09/01/15 Shreyas Orellana MD PCP - General Internal Medicine 09/02/15 07/07/19 Ashanti Kumar MD PCP - General Family Medicine 07/08/19 07/09/19 Shreyas Orellana MD PCP - General Internal Medicine 07/10/19 09/06/19 Ashanti Kumar MD PCP - General Family Medicine 09/07/19 07/12/20 Vale Walls NP [address] [place] [address] PCP - General Geriatrics 07/13/20 Chastity Cortes MD [address] [place] [address] PCP - Backup PCP Geriatrics 10/23/20 03/30/21 Vale Walls NP [address] [place] [address] PCP - Backup PCP Geriatrics 10/06/21 documented as of this encounter
--- OUTSIDE RECORDS SUMMARY | 2024-05-10 10:08 | XMS_ITS | Encounter Summary ---
Author Organization [facility] Address [address] [place] [address] Care Team Providers Care Pets And Pet Supplies Salesperson Name Role Phone Alison Francis MD Primary Care Provider [phone] Alison Francis MD Primary Care Provider [phone] Regan Darling MD Primary Care Provider [phone] Shreyas Orellana MD Primary Care Provider UnavailAshanti Smith MD Primary Care Provider [phone] Shreyas Orellana MD Primary Care Provider UnavailAshanti Smith MD Primary Care Provider [phone] Vale Walls NP Primary Care Provider [phone] Chastity Cortes MD Unavailable [phone] Vale Walls PRODUCT GRADER Unavailable [phone] Encounter Details Date Type Department Care Team (Late st Contact Info) Description 04/09/2007 Orders Only [facility] Internal Medicine [address] [place] [phone] Regan Darling MD [address] [place] [address] Social History Tobacco Use Types Packs/Day Years [...] of this encounter Procedures * Due to [facility] law, this organization might not be sharing negative HIV tests. Procedure Name Priority Date/Time Associated Diagnosis Comments CARDIAC RISK/LIPID PROFILE I Routine 04/09/2007 SCREENING FOR LIPOID DISORDERS BASIC METABOLIC PANEL Routine 04/09/2007 Hypertension CBC W/O DIFFERENTIAL Routine 04/09/2007 SCREENING FOR OTHER AND UNSPECIFIED DEFICIENCY ANEMIA THYROID CASCADE Routine 04/09/2007 SCREEN-ENDOC/NUT/MET NEC VITAMIN D, 25-HYDROXY, LC/MS/MS Routine 04/09/2007 Osteoporosis URINALYSIS, COMPLETE (DIP & MICRO) Routine 04/09/2007 Hypertension documented in this encounter Results * Due to [place] [employer] law, this organization might not be sharing negative HIV tests. * VITAMIN D, 25-HYDROXY, LC/MS/MS (04/09/2007) Vitamin D, 25-OH, Total 23 20 - 100 NG/ML [facility] (CLIA# [id number]) VITAMIN D, 25-OH, D3 (CHOLECALCIFEROL ) 23 NG/ML [facility] (CLIA# [id number]) VITAMIN D, 25-OH, D2 (CALCIFEROL) <4 NG/ML [facility] (CLIA# [id number]) Comment: 25-OHD3 INDICATES BOTH ENDOGENOUS PRODUCTION AND SUPPLEMENTATION. 25-OHD2 IS AN INDICATOR OF EXOGENOUS SOURCES SUCH DIET OR SUPPLEMENTATION. THERAPY IS BASED ON MEASUREMENT OF TOTAL 25-OHD, WITH LEVELS <20 NG/ML INDICATIVE OF VITAMIN D DEFICIENCY WHILE LEVELS BETWEEN 20 NG/ML AND 30 NG/ML SUGGEST INSUFFICIENCY. OPTIMAL LEVELS ARE >30 NG/ML. 04/09/2007 04/09/2007 3:2 4 PM EST Regan Darling MD LABORATORY Final Result Performing Organization Address City/[facility]/ZIP Co de Phone Number [facility] (CLIA# [id number]) [address] [place] [address] * (ABNORMAL) CBC W/O DIFFERENTIAL (04/09/2007) WHITE BLOOD COUNT 5.4 3.8 - 10.8 THOUS/UL [facility] (CLIA# [id number]) RBC 5.18(H) 3.80 - 5.10 MIL/UL [facility] (CLIA# [id number]) Hemoglobin 15.2 11.7 - 15.5 G/DL [facility] (CLIA# [id number]) HCT (HEMATOCRIT) 44.4 35.0 - 45.0 % [facility] (CLIA# [id number]) MCV 85.8 80.0 - 100.0 FL [facility] (CLIA# [id number]) MCH 29.4 27.0 - 33.0 PG [facility] (CLIA# [id number]) MCHC 34.3 32.0 - 36.0 G/DL [facility] (CLIA# [id number]) PLATELETS 236 140 - 400 THOUS/UL [facility] (CLIA# [id number]) RDW 13.0 11.0 - 15.0 % [facility] (CLIA# [id number]) MPV 7.9 7.5 - 11.5 FL [facility] (CLIA# [id number]) 04/09/2007 04/09/2007 3:2 4 PM EST Regan Darling MD LABORATORY Final Result Performing Organization Address City/[facility]/ZIP Co de Phone Number [facility] (CLIA# [id number]) [address] [place] [address] * (ABNORMAL) CARDIAC RISK/LIPID PROFILE I (04/09/2007) CHOLESTEROL, TOTAL 248(H) 125 - 200 MG/DL [facility] (CLIA# [id number]) TRIGLYCERIDES 122 30 - 149 MG/DL [facility] (CLIA# [id number]) HDL-CHOLESTEROL 58 40 - 77 MG/DL [facility] (CLIA# [id number]) LDL-CHOLESTEROL 166(H) 62 - 130 MG/DL [facility] (CLIA# [id number]) Comment: RISK CATEGORY: ??LDL-CHOLESTEROL GOAL CHD AND CHD RISK EQUIVALENTS: ??<100 MULTIPLE (2+) FACTORS: ??<130 ZERO TO ONE RISK FACTOR: ??<160 CHD RELATIVE RISK RATIO (TOTAL/HDL) 4.28 0.0 - 5.0 [facility] (CLIA# [id number]) Comment:(1.0 X AVERAGE) 04/09/2007 04/09/2007 3:2 4 PM EST Regan Darling MD LABORATORY Final Result [facility] (CLIA# [id number]) [address] [place] [address] * (ABNORMAL) BASIC METABOLIC PANEL (04/09/2007) CALCIUM 9.0 8.6 - 10.2 MG/DL [facility] (CLIA# [id number]) BUN 22 7 - 25 MG/DL [facility] (CLIA# [id number]) CREATININE 0.79 0.50-1.30/ 1.20 MG/DL [facility] (CLIA# [id number]) BUN/Creatinine Ratio 28(H) 6 - 25 [facility] (CLIA# [id number]) Glucose 98 65 - 99 MG/DL [facility] (CLIA# [id number]) SODIUM 140 135 - 146 MMOL/L [facility] (CLIA# [id number]) POTASSIUM 4.1 3.5 - 5.3 MMOL/L [facility] (CLIA# [id number]) CHLORIDE 108 98 - 110 MMOL/L [facility] (CLIA# [id number]) CARBON DIOXIDE 19(L) 21 - 33 MMOL/L [facility] (CLIA# [id number]) 04/09/2007 04/09/2007 3:2 4 PM EST us Regan Darling MD LAB SAME DAY RESULT Final Re sult [facility] (CLIA# [id number]) [address] [place] [address] * (ABNORMAL) URINALYSIS, COMPLETE (DIP & MICRO) (04/09/2007) COLOR (URINE) YELLOW YELLOW [facility] (CLIA# [id number]) APPEARANCE (URINE) TURBID(A) CLEAR [facility] (CLIA# [id number]) SPECIFIC GRAVITY 1.028 1.001 - 1.035 [facility] (CLIA# [id number]) PH (URINE) 5.5 5.0 - 8.0 [facility] (CLIA# [id number]) PROTEIN (URINE) NEG NEG FC [facility] (CLIA# [id number]) GLUCOSE (URINE) NEG NEG [facility] (CLIA# [id number]) Ketones (Urine) NEG NEG [facility] (CLIA# [id number]) BILIRUBIN (URINE) NEG NEG [facility] (CLIA# [id number]) BLOOD (URINE) NEG NEG [facility] (CLIA# [id number]) WBC (URINE) NEG NEG [facility] (CLIA# [id number]) NITRITE (URINE) NEG NEG [facility] (CLIA# [id number]) WBC (URINE) 0-4 0-4/HPF [facility] (CLIA# [id number]) RBC (Urine Sed) 0 0-3/HPF [facility] (CLIA# [id number]) EPITHELIAL CELLS.SQUAMOUS (URINE SED) 0 0-5/HPF [facility] (CLIA# [id number]) EPITHELIAL CELLS.TRANSITIO NAL (URINE SED) 0 0-5/HPF [facility] (CLIA# [id number]) EPITHELIAL CELLS.RENAL (URINE SED) 0 0-3/HPF [facility] (CLIA# [id number]) BACTERIA (URINE) NONE SEEN NONE SEEN [facility] (CLIA# [id number]) 04/09/2007 04/09/2007 3:2 4 PM EST Regan Darling MD LAB SAME DAY RESULT Final Re sult [facility] (CLIA# [id number]) [address] [place] [address] * THYROID CASCADE (04/09/2007) TSH, THYROTROPIN 1.38 0.40 - 4.50 UIU/ML [facility] (CLIA# [id number]) 04/09/2007 04/09/2007 3:2 4 PM EST Regan Darling MD LABORATORY Final Result Performing Organization Address City/[facility]/ZIP Co de Phone Number [facility] (CLIA# [id number]) [address] [place] [address] documented in this encounter Visit Diagnoses Diagnosis SCREEN-ENDOC/NUT/MET NEC Screening for other and unspecified endocrine, nutritional, metabolic, and immunity disorders Hypertension Unspecified essential hypertension SCREENING FOR LIPOID DISORDERS Screening for lipoid disorders SCREENING FOR OTHER AND UNSPECIFIED DEFICIENCY ANEMIA Screening for other and unspecified deficiency anemia Osteoporosis Osteoporosis, unspecified documented in this encounter Additional Health Concerns Infection Onset Date Last Indicated Resolved Time COVID-19 Confirmed 07/11/2019 07/11/2019 0 8:12 PM EDT documented as of this encounter Care Teams Pets And Pet Supplies Salesperson Relationship Specialty Start Date End Date Alison Francis MD PCP - General 03/20/10 09/01/15 Alison Francis MD PCP - General 07/02/07 03/19/10 Regan Darling MD [address] [place] [address] PCP - General 06/11/05 07/01/07 Shreyas Orellana MD [address] [place] [address] PCP - General Internal Medicine 09/02/15 07/07/19 Ashanti Kumar MD [address] [place] [address] PCP - General Family Medicine 07/08/19 07/09/19 Shreyas Orellana MD [address] [place] [address] PCP - General Internal Medicine 07/10/19 09/06/19 Ashanti Kumar MD [address] [place] [address] PCP - General Family Medicine 09/07/19 07/12/20 Vale Walls NP [address] [place] [address] PCP - General Geriatrics 07/13/20 Chastity Cortes MD [address] [place] [address] PCP - Backup PCP Geriatrics 10/23/20 03/30/21 Vale Walls NP [address] [place] [address] PCP - Backup PCP Geriatrics 10/06/21 documented as of this encounter
--- OUTSIDE RECORDS SUMMARY | 2024-05-10 10:08 | XMS_ITS | Encounter Summary ---
Author Organization [facility] Address [address] [place] [address] Care Team Providers Care Game Design Instructor Name Role Phone Vale Walls MEDICAID COLLECTION SPECIALIST Primary Care Provider [phone] Vale Walls MEDICAID COLLECTION SPECIALIST Unavailable [phone] Reason for Visit * Reason Comments E-prescribing Refill Request Encounter Details Date Type Department Care Team ([facility] st Contact Info) Description 04/11/2024 Refill [facility] Neurology [address] [facility] [address] [place] [address] Jillian Byrnes, PH[address]P [address] [place] [address] E-prescribing Refill Request Social History Tobacco Use [...] Start Date Job End Date 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 Author Blood Pressure < 140/90 Blood Pressure 158/66( 024 3:45 PM EST) No Marsha Guzman CMA documented as of this encounter Visit Diagnoses Not on filedocumented in this encounter Care Teams Game Design Instructor Relationship Specialty Start Date End Date Vale Walls NP [address] [place] [address] PCP - General Geriatrics 07/13/20 Vale Walls NP [address] [place] [address] PCP - Backup PCP Geriatrics 10/06/21 documented as of this encounter
--- OUTSIDE RECORDS SUMMARY | 2024-05-10 10:08 | XMS_ITS | Encounter Summary ---
Author Organization [facility] Address [address] [place] [address] Care Team Providers Care Investigation Clerk Name Role Phone Alison Francis MD Primary Care Provider [phone] Shreyas Orellana MD Primary Care Provider UnavailAshanti Smith MD Primary Care Provider [phone] Shreyas Orellana MD Primary Care Provider Unavaila Ashanti Shetty MD Primary Care Provider Vale Walls [employer] Primary Care Provider [phone] Chastity Cortes MD Unavailable [phone] Vale Walls [employer] Unavailable Encounter Details Date Type Department Care Team (Late st Contact Info) Description 12/10/2012 Orders Only [facility] Rheumatology [address] [place] [address] Chalino Diaz MD [address] [place] [address] Social History Tobacco Use Types Packs/Day Years [...] as of this encounter Progress Notes * Chalino Diaz MD - 12/11/2012 11:39 AM EDTQuick Note: Let her know blood and urine tests normal--very good news! documented in this encounter Plan of Treatment Not on file documented as of this encounter Procedures * Due to [place] [employer] law, this organization might not be sharing negative HIV tests. Procedure Name Priority Date/Time Associated Diagnosis Comments CBC INCLUDES DIFFERENTIAL AND PLATELET COUNT Routine 12/10/2012 1:46 PM EDT Ds DNA antibody positive URINALYSIS, COMPLETE INCLUDES DIPSTICK AND MICROSCOPIC Routine 12/10/2012 1:46 PM EDT Ds DNA antibody positive COMPREHENSIVE METABOLIC PANEL WITH GFR Routine 12/10/2012 1:46 PM EDT Ds DNA antibody positive documented in this encounter Results * Due to [place] [employer] law, this organization might not be sharing negative HIV tests. * CBC INCLUDES DIFFERENTIAL AND PLATELET COUNT (12/10/2012 1:46 PM EDT) WBC 6.0 3.8 - 10.8 Thousand/u L [facility] Comment:{WHITE BLOOD CELL CO UNT {[id number]) RBC 4.57 3.80 - 5.10 Million/uL [facility] Comment:{RED BLOOD CELL COUN T {[id number]) Hemoglobin 13.4 11.7 - 15.5 g/dL [facility] Comment:{HEMOGLOBIN {[id number]) Hematocrit 40.9 35.0 - 45.0 % [facility] Comment:{HEMATOCRIT {[id number]) MCV 89.6 80.0 - 100.0 fL [facility] Comment:{MCV {[id number]) MCH 29.4 27.0 - 33.0 pg [facility] Comment:{MCH {[id number]) MCHC 32.8 32.0 - 36.0 g/dL [facility] Comment:{MCHC {[id number]) RDW 13.2 11.0 - 15.0 % [facility] Comment:{RDW {[id number]) PLT 207 140 - 400 Thousand/u L [facility] Comment:{PLATELET COUNT {[id number]) MPV 8.1 7.5 - 11.5 fL [facility] Comment:{MPV {[id number]) Neutrophils # 2850 1500 - 7800 cells/uL [facility] Comment:{ABSOLUTE NEUTROPHIL S {[id number]) Lymphocytes # 2550 850 - 3900 cells/uL [facility] Comment:{ABSOLUTE LYMPHOCYTE S {[id number]) Monocytes # 456 200 - 950 cells/uL [facility] Comment:{ABSOLUTE MONOCYTES {[id number]) Eosinophils # 90 15 - 500 cells/uL [facility] Comment:{ABSOLUTE EOSINOPHIL S {[id number]) Basophils # 54 0 - 200 cells/uL [facility] Comment:{ABSOLUTE BASOPHILS {[id number]) Neutrophils % 47.5 % [facility] Comment:{NEUTROPHILS {[id number]) Lymphocytes % 42.5 % [facility] Comment:{LYMPHOCYTES {[id number]) Monocytes % 7.6 % [facility] Comment:{MONOCYTES {[id number]) Eosinophils % 1.5 % [facility] Comment:{EOSINOPHILS {[id number]) Basophils % 0.9 % [facility] Comment:{BASOPHILS {[id number]) 12/10/2012 1:46 PM EDT 12/10/2012 9:11 PM EDT Narrative [facility] - 12/11/2012 2:18 AM EDT Report Comments: WHICH ACCOUNT IS THIS ORDER RELATED TO OTHER THAN P/F?-> REORDERED FOR ALL ORDERING PROVIDERS Resulting Agency Comment [id number] us Chalino Diaz MD LAB SAME DAY RESULT Final Resul t [facility] [address] [place] [address] * COMPREHENSIVE METABOLIC PANEL WITH GFR (12/10/2012 1:46 PM EDT) Glucose 91 65 - 99 mg/dL [facility] Comment: {GLUCOSE {[id number]) ? Fasting reference interval Urea Nitrogen Blood (BUN) 23 7 - 25 mg/dL [facility] Comment:{UREA NITROGEN (BUN) {[id number]) Creatinine 0.75 0.60 - 0.93 mg/dL [facility] Comment: {CREATININE {[id number]) For patients >49 years of age, the reference limit for Creatinine is approximately 13% higher for people identified as -Finnish. GFR 79 > OR = 60 mL/min/1 .73m2 [facility] Comment:{eGFR NON-AFR. AMERI CAN {[id number]) GFR () 91 > OR = 60 mL/min/1 .73m2 [facility] Comment:{eGFR AMERIC AN {[id number]) BUN/Creatinine Ratio NOT APPLICABLE (calc) [facility] Comment:{BUN/CREATININE RATI O {[id number]) Sodium 140 135 - 146 mmol/L [facility] Comment:{SODIUM {[id number]) Potassium 3.8 3.5 - 5.3 mmol/L [facility] Comment:{POTASSIUM {[id number]) Chloride 107 98 - 110 mmol/L [facility] Comment:{CHLORIDE {[id number]) Carbon dioxide 25 19 - 30 mmol/L [facility] Comment:{CARBON DIOXIDE {[id number]) Calcium 9.1 8.6 - 10.4 mg/dL [facility] Comment:{CALCIUM {[id number]) Protein Total (Serum) 7.2 6.1 - 8.1 g/dL [facility] Comment:{PROTEIN, TOTAL {[id number]) Albumin 4.0 3.6 - 5.1 g/dL [facility] Comment:{ALBUMIN {[id number]) Globulin 3.2 1.9 - 3.7 g/dL (calc) [facility] Comment:{GLOBULIN {[id number]) Albumin/Globulin 1.3 1.0 - 2.5 (calc) [facility] Comment:{ALBUMIN/GLOBULIN RA QUENTIN {[id number]) Bilirubin Total 0.4 0.2 - 1.2 mg/dL [facility] Comment:{BILIRUBIN, TOTAL {[id number]) Alkaline phosphatase 55 33 - 130 U/L [facility] Comment:{ALKALINE PHOSPHATAS E {[id number]) AST (SGOT) 23 10 - 35 U/L [facility] Comment:{AST {[id number]) ALT (SGPT) 18 6 - 29 U/L [facility] Comment:{ALT {[id number]) 12/10/2012 1:46 PM EDT 12/10/2012 9:11 PM EDT Narrative [facility] - 12/11/2012 3:08 AM EDT Please note that this estimated [...] with more precise needs for GFR calculation. Report Comments: WHICH ACCOUNT IS THIS ORDER RELATED TO OTHER THAN P/F?-> REORDERED FOR ALL ORDERING PROVIDERS Resulting Agency Comment [id number] us Chalino Diaz MD LABORATORY Final Result [facility] [address] [place] [address] * URINALYSIS, COMPLETE INCLUDES DIPSTICK AND MICROSCOPIC (12/10/2012 1:46 PM EDT) Color (Urine) YELLOW YELLOW [facility] Comment:{COLOR {[id number]) Appearance (Urine) CLEAR CLEAR [facility] Comment:{APPEARANCE {[id number]) Specific gravity (Urine) 1.014 1.001 - 1.035 [facility] Comment:{SPECIFIC GRAVITY {[id number]) pH (Urine) 7.0 5.0 - 8.0 [facility] Comment:{PH {[id number]) Glucose (Urine) NEGATIVE NEGATIVE [facility] Comment:{GLUCOSE {[id number]) Bilirubin (Urine) NEGATIVE NEGATIVE [facility] Comment:{BILIRUBIN {[id number]) Ketones (Urine) NEGATIVE NEGATIVE [facility] Comment:{KETONES {[id number]) Hemoglobin (Urine) NEGATIVE NEGATIVE [facility] Comment:{OCCULT BLOOD {[id number]) Protein (Urine) NEGATIVE NEGATIVE [facility] Comment:{PROTEIN {[id number]) Nitrite (Urine) NEGATIVE NEGATIVE [facility] Comment:{NITRITE {[id number]) Leukocyte esterase (Urine) NEGATIVE NEGATIVE [facility] Comment:{LEUKOCYTE ESTERASE {[id number]) WBC (Urine) 0-5 < OR = 5 /HPF [facility] Comment:{WBC {[id number]) RBC (Urine Sed) NONE SEEN < OR = 3 /HPF [facility] Comment:{RBC {[id number]) Epithelial cells.squamous (Urine sed) 0-5 < OR = 5 /HPF [facility] Comment:{SQUAMOUS EPITHELIAL CELLS {[id number]) Bacteria (Urine) NONE SEEN NONE SEEN /HPF [facility] Comment:{BACTERIA {[id number]) Hyaline casts (Urine sed) NONE SEEN NONE SEEN /LPF [facility] Comment:{HYALINE CAST {[id number]) 12/10/2012 1:46 PM EDT 12/10/2012 9:11 PM EDT Narrative [facility] - 12/11/2012 1:40 AM EDT Report Comments: WHICH ACCOUNT IS THIS ORDER RELATED TO OTHER THAN P/F?-> REORDERED FOR ALL ORDERING PROVIDERS Resulting Agency Comment [id number] us Chalino Diaz MD LAB SAME DAY RESULT Final Resul t [facility] [address] [place] [address] documented in this encounter Visit Diagnoses Diagnosis Ds DNA antibody positive- Primary Other and unspecified nonspecific immunological findings documented in this encounter Additional Health Concerns Infection Onset Date Last Indicated Resolved Time COVID-19 Confirmed 07/11/2019 07/11/2019 0 8:12 PM EDT documented as of this encounter Care Teams Investigation Clerk Relationship Specialty Start Date End Date Alison Francis MD PCP - General 03/20/10 09/01/15 Shreyas Orellana MD PCP - General Internal Medicine 09/02/15 07/07/19 Ashanti Kumar MD PCP - General Family Medicine 07/08/19 07/09/19 Shreyas Orellana MD PCP - General Internal Medicine 07/10/19 09/06/19 Ashanti Kumar MD PCP - General Family Medicine 09/07/19 07/12/20 Vale Walls NP [address] [place] [address] PCP - General Geriatrics 07/13/20 Chastity Cortes MD [address] [place] [address] PCP - Backup PCP Geriatrics 10/23/20 03/30/21 Vale Walls NP [address] [place] [address] PCP - Backup PCP Geriatrics 10/06/21 documented as of this encounter
--- OUTSIDE RECORDS SUMMARY | 2024-05-10 10:08 | XMS_ITS | Encounter Summary ---
Author Organization [facility] Address [address] [place] [address] Care Team Providers Care Sourcer Name Role Phone Alison Francis MD Primary Care Provider [phone] Alison Francis MD Primary Care Provider [phone] Regan Darling MD Primary Care Provider [phone] Shreyas Orellana MD Primary Care Provider UnavailAshanti Smith MD Primary Care Provider [phone] Shreyas Orellana MD Primary Care Provider UnavailAshanti Smith MD Primary Care Provider [phone] Vale Walls NP Primary Care Provider [phone] Chastity Cortes MD Unavailable [phone] CouVale badillo PLIER WORKER Unavailable [phone] Encounter Details Date Type Department Care Team (Late st Contact Info) Description 06/12/2007 Orders Only [facility] Internal Medicine [address] [place] [phone] Regan Darling MD [address] [place] [address] Social History Tobacco Use Types Packs/Day Years [...] of this encounter Procedures * Due to [facility] law, this organization might not be sharing negative HIV tests. Procedure Name Priority Date/Time Associated Diagnosis Comments CARDIAC RISK/LIPID PROFILE I Routine 06/12/2007 Hyperlipidemia BASIC METABOLIC PANEL Routine 06/12/2007 Hypertension documented in this encounter Results * Due to [place] [employer] law, this organization might not be sharing negative HIV tests. * (ABNORMAL) BASIC METABOLIC PANEL (06/12/2007) CALCIUM 9.1 8.6 - 10.2 MG/DL [facility] (CLIA# [id number]) BUN 24 7 - 25 MG/DL [facility] (CLIA# [id number]) CREATININE 0.67 0.50-1.30/ 1.20 MG/DL [facility] (CLIA# [id number]) BUN/Creatinine Ratio 36(H) 6 - 25 [facility] (CLIA# [id number]) Glucose 97 65 - 99 MG/DL [facility] (CLIA# [id number]) SODIUM 141 135 - 146 MMOL/L [facility] (CLIA# [id number]) POTASSIUM 3.9 3.5 - 5.3 MMOL/L [facility] (CLIA# [id number]) CHLORIDE 104 98 - 110 MMOL/L [facility] (CLIA# [id number]) CARBON DIOXIDE 25 21 - 33 MMOL/L [facility] (CLIA# [id number]) 06/12/2007 06/12/2007 8:2 9 PM EDT Regan Darling MD LAB SAME DAY RESULT Final Re sult [facility] (CLIA# [id number]) [address] [place] [address] * (ABNORMAL) CARDIAC RISK/LIPID PROFILE I (06/12/2007) CHOLESTEROL, TOTAL 216(H) 125 - 200 MG/DL [facility] (CLIA# [id number]) TRIGLYCERIDES 272(H) 30 - 149 MG/DL [facility] (CLIA# [id number]) HDL-CHOLESTEROL 33(L) 40 - 77 MG/DL [facility] (CLIA# [id number]) LDL-CHOLESTEROL 129 62 - 130 MG/DL [facility] (CLIA# [id number]) Comment: RISK CATEGORY: ??LDL-CHOLESTEROL GOAL CHD AND CHD RISK EQUIVALENTS: ??<100 MULTIPLE (2+) FACTORS: ??<130 ZERO TO ONE RISK FACTOR: ??<160 CHD RELATIVE RISK RATIO (TOTAL/HDL) 6.55(H) 0.0 - 5.0 [facility] (CLIA# [id number]) Comment:(1.8 X AVERAGE) 06/12/2007 06/12/2007 8:2 9 PM EDT Regan Darling MD LABORATORY Final Result [facility] (CLIA# [id number]) [address] [place] [address] documented in this encounter Visit Diagnoses Diagnosis Hyperlipidemia Other and unspecified hyperlipidemia Hypertension Unspecified essential hypertension documented in this encounter Additional Health Concerns Infection Onset Date Last Indicated Resolved Time COVID-19 Confirmed 07/11/2019 07/11/2019 0 8:12 PM EDT documented as of this encounter Care Teams Sourcer Relationship Specialty Start Date End Date Alison Francis MD PCP - General 03/20/10 09/01/15 Alison Francis MD PCP - General 07/02/07 03/19/10 Regan Darling MD [address] [place] [id number] PCP - General 06/11/05 07/01/07 Shreyas Orellana MD [address] [place] [id number] PCP - General Internal Medicine 09/02/15 07/07/19 Ashanti Kumar MD [address] [place] [id number] PCP - General Family Medicine 07/08/19 07/09/19 Shreyas Orellana MD [address] [place] [id number] PCP - General Internal Medicine 07/10/19 09/06/19 Ashanti Kumar MD [address] [place] [id number] PCP - General Family Medicine 09/07/19 07/12/20 Vale Walls NP [address] [place] [id number] PCP - General Geriatrics 07/13/20 Chastity Cortes MD [address] [place] [id number] PCP - Backup PCP Geriatrics 10/23/20 03/30/21 Vale Walls NP [address] [place] [id number] PCP - Backup PCP Geriatrics 10/06/21 documented as of this encounter
--- OUTSIDE RECORDS SUMMARY | 2024-05-10 10:08 | XMS_ITS | Encounter Summary ---
Author Organization [facility] Address [address] [place] [address] Care Team Providers Care Director Of Clinical Applications Name Role Phone Alison Francis MD Primary Care Provider Shreyas Orellana MD Primary Care Provider UnavailAshanti Smith MD Primary Care Provider [phone] Shreyas Orellana MD Primary Care Provider UnavailAshanti Smith MD Primary Care Provider Vale Walls BARK PEELER Primary Care Provider Chastity Cortes MD Unavailable [phone] Vale Walls BARK PEELER Unavailable Encounter Details Date Type Department Care Team (Late st Contact Info) Description 08/26/2011 Orders Only July Internal Medicine [address] [place] [address] Alison Francis MD [address] [place] [address] Social History Tobacco Use Types Packs/Day Years [...] encounter Progress Notes * Alison Francis - 08/29/2011 1:13 PM EDTQuick Note: Patient's K is low, needs Rx with KCL 20 meq po qd for 3 days and repeat K levels after. Thansk documented in this encounter Plan of Treatment Not on file documented as of this encounter Procedures * Due to [place] [employer] law, this organization might not be sharing negative HIV tests. Procedure Name Priority Date/Time Associated Diagnosis Comments BASIC METABOLIC PANEL WITH (GFR) Routine 08/26/2011 2:49 PM EDT Hypertension documented in this encounter Results * Due to [place] [employer] law, this organization might not be sharing negative HIV tests. * (ABNORMAL) BASIC METABOLIC PANEL WITH (GFR) (08/26/2011 2:49 PM EDT) Glucose 104(H) 65 - 99 mg/dL [facility] Comment: {GLUCOSE {[id number]) ? Fasting reference interval Urea Nitrogen Blood (BUN) 21 7 - 25 mg/dL [facility] Comment:{UREA NITROGEN (BUN) {[id number]) Creatinine 0.96(H) 0.60 - 0.93 mg/dL [facility] Comment: {CREATININE {[id number]) For patients >49 years of age, the reference limit for Creatinine is approximately 13% higher for people identified as -Iraqi. GFR 59(L) > OR = 60 mL/min/1. 73m2 [facility] Comment:{eGFR NON-AFR. AMERI CAN {[id number]) GFR () 68 > OR = 60 mL/min/1. 73m2 [facility] Comment:{eGFR AMERIC AN {[id number]) BUN/Creatinine Ratio 22 6 - 22 (calc) [facility] Comment:{BUN/CREATININE RATI O {[id number]) Sodium 140 135 - 146 mmol/L [facility] Comment:{SODIUM {[id number]) Potassium 3.0(L) 3.5 - 5.3 mmol/L [facility] Comment:{POTASSIUM {[id number]) Chloride 102 98 - 110 mmol/L [facility] Comment:{CHLORIDE {[id number]) Carbon dioxide 27 21 - 33 mmol/L [facility] Comment:{CARBON DIOXIDE {[id number]) Calcium 9.6 8.6 - 10.4 mg/dL [facility] Comment:{CALCIUM {[id number]) 08/26/2011 2:49 PM EDT 08/26/2011 10:58 PM EDT Narrative [facility] - 08/27/2011 2:46 AM EDT Please note that this estimated [...] needs for GFR calculation. Resulting Agency Comment [id number] Alison Francis MD LABORATORY Final Result [facility] [address] [place] [address] documented in this encounter Visit Diagnoses Diagnosis Hypertension Unspecified essential hypertension documented in this encounter Additional Health Concerns Infection Onset Date Last Indicated Resolved Time COVID-19 Confirmed 07/11/2019 07/11/2019 0 8:12 PM EDT documented as of this encounter Care Teams Director Of Clinical Applications Relationship Specialty Start Date End Date Alison Francis MD PCP - General 03/20/10 09/01/15 Shreyas Orellana MD PCP - General Internal Medicine 09/02/15 07/07/19 Ashanti Kumar MD PCP - General Family Medicine 07/08/19 07/09/19 Shreyas Orellana MD PCP - General Internal Medicine 07/10/19 09/06/19 Ashanti Kumar MD PCP - General Family Medicine 09/07/19 07/12/20 Vale Walls NP [address] [place] [address] PCP - General Geriatrics 07/13/20 Chastity Cortes MD [address] [place] [address] PCP - Backup PCP Geriatrics 10/23/20 03/30/21 Vale Walls NP [address] [place] [address] PCP - Backup PCP Geriatrics 10/06/21 documented as of this encounter
--- OUTSIDE RECORDS SUMMARY | 2024-05-10 10:08 | XMS_ITS | Encounter Summary ---
Author Organization [facility] Address [address] [place] [address] Care Team Providers Care Material Inspector Name Role Phone Vale Walls PAN RECLAIM PROCESSOR Primary Care Provider [phone] Vale Walls PAN RECLAIM PROCESSOR Unavailable [phone] Reason for Visit * Reason Comments E-prescribing Refill Request Encounter Details Date Type Department Care Team ([facility] st Contact Info) Description 03/31/2024 Refill [facility] Neurology [address] [facility] [address] [place] [address] Jillian Byrnes, [address] [place] [address] E-prescribing Refill Request Social History Tobacco Use [...] Start Date Job End Date 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 Neuro refused to sergio her request for refill as they have not seen her since 2022. Rx pended. * Telephone Encounter - Astrid Jo - 04/12/2024 8:58 AM EST Pt needs refill on sleeping medication, and Neurology will not renew, as Pt hasn't been seen. Transferred to nursing * Telephone Encounter - Azalia Dorantes RN - 04/01/2024 9:53 AM EST Quetiapine refused Pt last seen 2022 Several letter sent requesting appt documented in this encounter Plan of Treatment Not on file documented as of this encounter Goals Goal Patient Goal Type Associated Problems Recent Progress Patient-Stated? Author Blood Pressure < 140/90 Blood Pressure 158/66( 024 3:45 PM EST) Marsha Farah CMA documented as of this encounter Visit Diagnoses Not on filedocumented in this encounter Care Teams Material Inspector Relationship Specialty Start Date End Date Vale Walls NP [address] [place] [address] PCP - General Geriatrics 07/13/20 Vale Walls NP [address] [place] [address] PCP - Backup PCP Geriatrics 10/06/21 documented as of this encounter
--- OUTSIDE RECORDS SUMMARY | 2024-05-10 10:08 | XMS_ITS | Encounter Summary ---
Author Organization [facility] Address [address] [place] [address] Care Team Providers Care Injury Prevention Coordinator Name Role Phone Alison Francis MD Primary Care Provider Shreyas Orellana MD Primary Care Provider UnavailAshanti Smith MD Primary Care Provider [phone] Shreyas Orellana MD Primary Care Provider UnavailAshanti Smith MD Primary Care Provider Vale Walls MAGAZINE REPAIRER Primary Care Provider Chastity Cortes MD Unavailable Vale Walls MAGAZINE REPAIRER Unavailable Encounter Details Date Type Department Care Team (Late st Contact Info) Description 12/04/2012 Orders Only July Internal Medicine [address] [place] [address] Alison Francis MD [address] [place] [address] Social History Tobacco Use Types Packs/Day Years [...] as of this encounter Progress Notes * Yumiko Ryan - 12/11/2012 9:06 AM EDTQuick Note: Pt had appt with Dr Diaz on 12/10/12 at [facility] Rheum. Dept, [place]. 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 Called pt [phone] (home). She is aware. documented in this encounter Plan of Treatment Not on file documented as of this encounter Procedures * Due to [place] [employer] law, this organization might not be sharing negative HIV tests. Procedure Name Priority Date/Time Associated Diagnosis Comments EKG-TO BE READ & BILLED BY ADULT OR PEDIATRIC CARDIOLOGY Routine 12/04/2012 2:40 PM EDT Arthralgia SM/DRY STARCH OPERATOR ANTIBODY Routine 12/04/2012 2:14 PM EDT Arthralgia DNA (DS) ANTIBODY Routine 12/04/2012 2:1 4 PM EDT Arthralgia ZEEANT SCREEN IFA W/REFLEX TO TITER/PATTERN IFA Routine 12/04/2012 2:14 PM EDT Arthralgia documented in this encounter Results * Due to [place] [employer] law, this organization might not be sharing negative HIV tests. * (ABNORMAL) EKG-TO BE READ AND BILLED BY CARDIOLOGY (12/04/2012 2:40 PM EDT) VENTRICULAR RATE 65 BPM MUS E EKG SYSTEM ATRIAL RATE 65 BPM MUSE EKG SYSTEM P-R INTERVAL 140 ms MUSE EK G SYSTEM QRS DURATION 80 ms MUSE EK G SYSTEM QT 400 ms MUSE EKG SYSTEM QTC 416 ms MUSE EKG SYSTEM P AXIS 53 degrees MUSE EKG SYSTEM R AXIS 10 degrees MUSE EKG SYSTEM T AXIS 19 degrees MUSE EKG SYSTEM EKG INTERPRETATION Normal sinus rhythm Nonspecific ST and T wave abnormality Abnormal ECG When compared with ECG of 26-SEP-2005 10:50, No significant change was found(A) MUSE EKG SYSTEM 12/04/2012 2:40 PM EDT Alison Francis MD CARDIOVASCULAR-WITH INBSKT RTG Final Result Performing Organization Address [facility]/ZIP Co de Phone Number MUSE EKG SYSTEM * SM/DRY STARCH OPERATOR ANTIBODY (12/04/2012 2:14 PM EDT) Wilson extractable nuclear Ab+Ribonucleopr otein extractable nuclear Ab <1.0 NEG <1.0 NEG AI [facility] Comment:{SM/DRY STARCH OPERATOR ANTIBODY {[id number]) 12/04/2012 2:14 PM EDT 12/04/2012 11:10 PM EDT Narrative Resulting Agency Comment [id number] Alison Francis MD LABORATORY Final Result Performing Organization Address [facility] de Phone Number [facility] [address] [place] [address] * (ABNORMAL) DNA (DS) ANTIBODY (12/04/2012 2:14 PM EDT) Dna (DS) Antibody 14(H) IU/mL [facility] Comment: {DNA (DS) ANTIBODY {[id number]) ? IU/mL ? Interpretation ? < or = 4 ?Negative ? 5-9 ? Indeterminate ? > or = 10 ?? Positive 12/04/2012 2:14 PM EDT 12/04/2012 11:10 PM EDT Narrative Resulting Agency Comment [id number] Alison Francis MD LABORATORY Final Result [facility] [address] [place] [address] * ZEENAT SCREEN IFA W/REFLEX TO TITER/PATTERN IFA (12/04/2012 2:14 PM EDT) ZEENAT IFA NEGATIVE NEGATIVE [facility] Comment:{ZEENAT SCREEN, IFA {[id number]) 12/04/2012 2:14 PM EDT 12/04/2012 11:10 PM EDT Narrative Resulting Agency Comment [id number] Alison Francis MD LABORATORY Final Result Performing Organization Address City/[facility] Co de Phone Number [facility] [address] [place] [address] documented in this encounter Visit Diagnoses Diagnosis Arthralgia- Primary Pain in joint, site unspecified documented in this encounter Additional Health Concerns Infection Onset Date Last Indicated Resolved Time COVID-19 Confirmed 07/11/2019 07/11/2019 0 8:12 PM EDT documented as of this encounter Care Teams Injury Prevention Coordinator Relationship Specialty Start Date End Date Alison Francis MD PCP - General 03/20/10 09/01/15 Shreyas Orellana MD PCP - General Internal Medicine 09/02/15 07/07/19 Ashanti Kumar MD PCP - General Family Medicine 07/08/19 07/09/19 Shreyas Orellana MD PCP - General Internal Medicine 07/10/19 09/06/19 Ashanti Kumar MD PCP - General Family Medicine 09/07/19 07/12/20 Vale Walls NP [address] [place] [address] PCP - General Geriatrics 07/13/20 Chastity Cortes MD [address] [place] [address] PCP - Backup PCP Geriatrics 10/23/20 03/30/21 Vale Walls NP [address] [place] [address] PCP - Backup PCP Geriatrics 10/06/21 documented as of this encounter
--- OUTSIDE RECORDS SUMMARY | 2024-05-10 10:09 | XMS_ITS | Encounter Summary ---
Author Organization [facility] Address [address] [place] [address] Care Team Providers Care Hull Molder Name Role Phone Shreyas Orellana MD Primary Care Provider UnavailAshanti Smith MD Primary Care Provider [phone] Shreyas Orellana MD Primary Care Provider UnavailAshanti Smith MD Primary Care Provider [phone] Vale Walls NP Primary Care Provider Chastity Cortes MD Unavailable [phone] Vale Walls NP Unavailable [phone] Encounter Details Date Type Department Care Team (Late st Contact Info) Description 08/08/2018 Orders Only [facility] [address] [place] [phone] Shreyas Orellana MD Social History Tobacco Use [...] 158/66( 024 3:45 PM EST) No Marsha Guzman, TRUCK RAILROAD AND BUS MOTOR MECHANIC documented as of this encounter Procedures * Due to [place] [employer] law, this organization might not be sharing negative HIV tests. Procedure Name Priority Date/Time Associated Diagnosis Comments CBC INCLUDES DIFFERENTIAL AND PLATELET COUNT Routine 08/08/2018 1:24 PM EDT Fatigue, unspecified type THYROID CASCADING REFLEX Routine 08/08/2018 1:24 PM EDT Fatigue, unspecified type VITAMIN B12 (CYANOCOBALAMIN), SERUM Routine 08/08/2018 1:24 PM EDT Fatigue, unspecified type BASIC METABOLIC PANEL WITH (GFR) Routine 08/08/2018 1:24 PM EDT Fatigue, unspecified type documented in this encounter Results * Due to [place] [employer] law, this organization might not be sharing negative HIV tests. * VITAMIN B12 (CYANOCOBALAMIN), SERUM (08/08/2018 1:24 PM EDT) Vitamin B12 (Cobalamins) 445 200 - 1100 pg/mL [facility] 08/08/2018 1:24 PM EDT 08/08/2018 7:50 PM EDT Narrative Resulting Agency Comment [id number] Shreyas Orellana MD LABORATORY Final Result [facility] [address] [place] [address] * THYROID CASCADING REFLEX (08/08/2018 1:24 PM EDT) TSH 2.94 0.40 - 4.50 mIU/L [facility] 08/08/2018 1:24 PM EDT 08/08/2018 7:50 PM EDT Narrative Resulting Agency Comment [id number] Shreyas Orellana MD LABORATORY Final Result [facility] [address] [place] [address] * BASIC METABOLIC PANEL WITH (GFR) (08/08/2018 1:24 PM EDT) Glucose 83 65 - 99 mg/dL [facility] Comment:Fasting reference in terval Urea Nitrogen Blood (BUN) 22 7 - 25 mg/dL [facility] Creatinine 0.79 0.60 - 0.88 mg/dL [facility] Comment: For patients >49 years of age, the reference limit for Creatinine is approximately 13% higher for people identified as -Canadian. EGFR 71 > OR = 60 mL/min/1 .73m2 [facility] GFR () 82 > OR = 60 mL/min/1 .73m2 [facility] BUN/Creatinine Ratio NOT APPLICABLE 6 - (calc) [facility] Sodium 137 135 - 146 mmol/L [facility] Potassium 4.0 3.5 - 5.3 mmol/L [facility] Chloride 103 98 - 110 mmol/L [facility] Carbon dioxide 25 20 - 32 mmol/L [facility] Calcium 9.8 8.6 - 10.4 mg/dL [facility] 08/08/2018 1:24 PM EDT 08/08/2018 7:50 PM EDT Narrative [facility] - 08/08/2018 10:23 PM EDT Please note that this estimated GFR [...] needs for GFR calculation. Resulting Agency Comment [id number] Shreyas Orellana MD LABORATORY Final Result [facility] [address] [place] [address] * CBC INCLUDES DIFFERENTIAL AND PLATELET COUNT (08/08/2018 1:24 PM EDT) WBC 7.4 3.8 - 10.8 Thousand/u L [facility] RBC 5.03 3.80 - 5.10 Million/uL [facility] Hemoglobin 14.3 11.7 - 15.5 g/dL [facility] Hematocrit 41.9 35.0 - 45.0 % [facility] MCV 83.3 80.0 - 100.0 fL [facility] MCH 28.4 27.0 - 33.0 pg [facility] MCHC 34.1 32.0 - 36.0 g/dL [facility] RDW 13.2 11.0 - 15.0 % [facility] PLT 213 140 - 400 Thousand/u L [facility] MPV 9.6 7.5 - 12.5 fL [facility] Neutrophils # 4484 1500 - 7800 cells/uL [facility] Lymphocytes # 2065 850 - 3900 cells/uL [facility] Monocytes # 659 200 - 950 cells/uL [facility] Eosinophils # 141 15 - 500 cells/uL [facility] Basophils # 52 0 - 200 cells/uL [facility] Neutrophils % 60.6 % [facility] Lymphocytes % 27.9 % [facility] Monocytes % 8.9 % [facility] Eosinophils % 1.9 % [facility] Basophils % 0.7 % [facility] 08/08/2018 1:24 PM EDT 08/08/2018 7:50 PM EDT Narrative Resulting Agency Comment [id number] Shreyas Orellana MD LAB SAME DAY RESULT Final Resul t Performing Organization Address City/State/[facility] Co de Phone Number [facility] [address] [place] [address] documented in this encounter Visit Diagnoses Diagnosis Fatigue, unspecified type documented in this encounter Additional Health Concerns Infection Onset Date Last Indicated Resolved Time COVID-19 Confirmed 07/11/2019 07/11/2019 0 8:12 PM EDT documented as of this encounter Care Teams Hull Molder Relationship Specialty Start Date End Date Shreyas Orellana MD PCP - General Internal Medicine 09/02/15 07/07/19 Ashanti Kumar MD PCP - General Family Medicine 07/08/19 07/09/19 Shreyas Orellana MD PCP - General Internal Medicine 07/10/19 09/06/19 Ashanti Kumar MD PCP - General Family Medicine 09/07/19 07/12/20 Vale Walls NP [address] [place] [address] PCP - General Geriatrics 07/13/20 Chastity Cortes MD [address] [place] [address] PCP - Backup PCP Geriatrics 10/23/20 03/30/21 Vale Walls NP [address] [place] [address] PCP - Backup PCP Geriatrics 10/06/21 documented as of this encounter
--- OUTSIDE RECORDS SUMMARY | 2024-05-10 10:09 | XMS_ITS | Encounter Summary ---
Author Organization [facility] Address [address] [place] [address] Care Team Providers Care Pharmacovigilance Safety Expert Name Role Phone Vale Walls NP Primary Care Provider [phone] aVle Walls GAUGE MAKER APPRENTICE Unavailable [phone] Reason for Visit * Reason Comments Results Encounter Details Date Type Department Care Team ([facility] Contact Info) Description 04/09/2024 Telephone [facility] [address] [place], [place] [id number] Vale Walls NP [address] [place], [place] [id number] Results Social History Tobacco Use Types Packs/Day Years [...] Start Date Job End Date 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 She just wanted to know if [facility] ([facility] hospital [facility] take her to) will see her MRI from [facility]. Advised RN is not sure of this as we do not knowwhat system they use for EMR, but getting to any ER is the goal at this moment. If [facility] needed anything for follow up, imaging, etc, they would call to get those sent over. Daughter verb understanding, she is calling EMS for the patient and denied any need for RN assistance at this time. * Telephone Encounter - Kandis Finch - 04/18/2024 9:51 AM EST Reason for call: Question re: ambulance and hospital Is the patient having an emergent symptom? No Follow-up action needed: call transferred to Nurse queue * Telephone Encounter - Macrina Au LPN - 04/18/2024 9:38 AM EST She is getting an injection Monday, they last few days her pain is pretty significant all down the left leg into her toes in the front. Daughter and Pt report it is severe. No redness, no swelling no warmth. No saddle anesthesia, just pain in back (a little better that it has been), left leg and groin, hurts to stand up due to the pain. She cannot walk or stand up. She has two oxycodone left and helped a very little. She is taking ES Tylenol 1000 mg bid. Naproxen 660 mg bid Using diclofenac gel Due to severe pian and need for pain management advised ER, Daughter cannot safely transport her via car agreed to call 911. I offered but she opted to call on her own was pt wants to prepare. Cc to Covering * Telephone Encounter - Astrid Jo - 04/18/2024 9:34 AM EST Reason for call: , Dtr, Deborah calling, [facility]. Pt's pain is all the way down her leg. Asking for RX for the pain How long have you had these symptoms? ongoing Is the patient having an emergent symptom? No Follow-up action needed: call transferred to Nurse queue * Telephone Encounter - Macrina Au LPN - 04/15/2024 2:22 PM EST Pt is getting a second opinion at [facility] * Telephone Encounter - Winnie Gracia RN - 04/15/2024 12:40 PM EST Per pcp to follow up with othro. They get the results. * Telephone Encounter - Chelsea Jacobs NP - 04/15/2024 8:26 AM EST [facility] regarding MRI * Telephone Encounter - Chelsea Jacobs NP - 04/11/2024 12:40 PM EST Noted. Will postpone for PCP to review when she returns next week. Appears she already has f/u with ortho for ? Injections for pain control vs surgery. * Telephone Encounter - Ruth Younger RN - 04/11/2024 9:26 AM EST The MRI was ordered by another MD at [facility]. Not the PCP. She just wants the PCP to look at the MRI. MRI Lumbar Spine WO Contrast Anatomical Region Laterality Modality Spine -- Magnetic Resonance L-spine -- -- Impression 1. Signal abnormality within bilateral sacral ala [...] 4. 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 *Almyra critical alert A(n) Almyra actionable finding has been communicated to the ordering or responsible provider via the Xand Findings system on 04/06/2024 11:04 AM. Receipt of this communication by the responsible provider will be documented in Xand Findings upon receiving acknowle dgement if applicable, Message ID [id number]. If this radiology report contains a blank impression section, it is an incomplete radiology report.Please contact the interpreting radiologist or applicable radiology division as soon as possible toobtain the completed interpretation. Workstation ID: [id number] Narrative EXAMINATION: MRI of lumbar spine without contrast [...] on the recent CT abdomen/pelvis dated 03/09/2024. * Telephone Encounter - Jael Rizo - 04/11/2024 9:23 AM EST Reason for call: pt calling bout MRI Pls transfer to prescription line when finished speaking w/pt How long have you had these symptoms? na Is the patient having an emergent symptom? No Follow-up action needed: call transferred to Nurse queue * Telephone Encounter - Winnie Gracia RN - 04/09/2024 4:25 PM EST Able to speak with patient. She confirmed that she is taking the vitamin d and the calcium. She is awaiting MRI results which she states they should be calling her this week. She will call with any other questions/concerns. * Telephone Encounter - Winnie Gracia RN - 04/09/2024 4:21 PM EST ----- Message from Chelsea Jacobs sent at 04/09/2024 4:06 PM EST ----- DEXA scan 'osteopenia' range. Significant decrease in BMD since the previous scan. Please ensure pt is taking vit D 2000IU daily as ordered and CA supplement 600mg BID. Advise repeat in 2 years. documented in this encounter Plan of Treatment Not on file documented as of this encounter Goals Goal Patient Goal Type Associated Problems Recent Progress Patient-Stated? Author Blood Pressure < 140/90 Blood Pressure 158/66( 024 3:45 PM EST) Marsha Farah CMA documented as of this encounter Visit Diagnoses Not on filedocumented in this encounter Care Teams Pharmacovigilance Safety Expert Relationship Specialty Start Date End Date Vale Walls NP [address] [place] [address] PCP - General Geriatrics 07/13/20 Vale Walls NP [address] [place] [address] PCP - Backup PCP Geriatrics 10/06/21 documented as of this encounter
--- OUTSIDE RECORDS SUMMARY | 2024-05-10 10:09 | XMS_ITS | Encounter Summary ---
Author Organization [facility] Address [address] [place] [address] Care Team Providers Care Surveillance Officer Name Role Phone Alison Francis MD Primary Care Provider Shreyas Orellana MD Primary Care Provider UnavailAshanti Smith MD Primary Care Provider [phone] Shreyas Orellana MD Primary Care Provider UnavailAshanti Smith MD Primary Care Provider Vale Walls ASE CERTIFIED TECHNICIAN Primary Care Provider Chastity Cortes MD Unavailable Vale Walls ASE CERTIFIED TECHNICIAN Unavailable [phone] Encounter Details Date Type Department Care Team (Late st Contact Info) Description 05/26/2011 Orders Only July Internal Medicine [address] [place] [address] Alison Francis MD [address] [place] [id number] Social History Tobacco Use Types Packs/Day Years [...] encounter Progress Notes * Alison Francis - 05/30/2011 12:31 PM EDTQuick Note: L/S documented in this encounter Plan of Treatment Not on file documented as of this encounter Procedures * Due to [place] AttorneyFee law, this organization might not be sharing negative HIV tests. Procedure Name Priority Date/Time Associated Diagnosis Comments VITAMIN B12 (CYANOCOBALAMIN), SERUM Routine 05/26/2011 8:47 AM EST Vitamin B12 deficiency BASIC METABOLIC PANEL W/GLOMERULAR FILTRATION RATE (EGFR) Routine 05/26/2011 8:47 AM EST Vitamin D Defiency Hypertension Osteoporosis Back pain Hyperlipidemia; LDL Goal < 130 Vitamin B12 deficiency LIPID PANEL + CARDIAC RISK WITH REFLEX TO LDL DIRECT Routine 05/26/2011 8:47 AM EST Vitamin D Defiency Hypertension Osteoporosis Back pain Hyperlipidemia; LDL Goal < 130 Vitamin B12 deficiency CBC 5 PART DIFF Routine 05/26/2011 8:47 AM EST Vitamin D Defiency Hypertension Osteoporosis Back pain Hyperlipidemia; LDL Goal < 130 Vitamin B12 deficiency ASPARTATE AMINOTRANSFERASE (AST), SERUM Routine 05/26/2011 8:47 AM EST Vitamin D Defiency Hypertension Osteoporosis Back pain Hyperlipidemia; LDL Goal < 130 Vitamin B12 deficiency TSH, THYROTROPIN Routine 05/26/2011 8:47 AM EST Vitamin D Defiency Hypertension Osteoporosis Back pain Hyperlipidemia; LDL Goal < 130 Vitamin B12 deficiency T4, FREE THYROXINE Routine 05/26/2011 8: 47 AM EST Vitamin D Defiency Hypertension Osteoporosis Back pain Hyperlipidemia; LDL Goal < 130 Vitamin B12 deficiency VITAMIN D, 25-HYDROXY, LC/MS/MS Routine 05/26/2011 8:47 AM EST Vitamin D Defiency Hypertension Osteoporosis Back pain Hyperlipidemia; LDL Goal < 130 Vitamin B12 deficiency documented in this encounter Results * Due to [place] AttorneyFee law, this organization might not be sharing negative HIV tests. * (ABNORMAL) VITAMIN D, 25-HYDROXY, LC/MS/MS (05/26/2011 8:47 AM EST) Vitamin D, 25-OH, Total 26(L) 30 - 100 ng/mL [facility] Comment:{VITAMIN D, 25 OH, T OTAL {[id number]) Vitamin D, D3 (Cholecalciferol ) 26 ng/mL [facility] Comment:{VITAMIN D, 25 OH, D 3 {[id number]) Vitamin D, 25-OH, D2 (Calciferol) <4 ng/mL [facility] Comment: {VITAMIN D, 25 OH, D2 {[id number]) ? 25-OHD3 indicates both endogenous production and ? supplementation. 25-OHD2 is an indicator of exogenous ? sources such as diet or supplementation. Therapy is based on ? measurement of Total 25-OHD, with levels <20 ng/mL indicative ? of Vitamin D deficiency, while levels between 20 ng/mL and ? 30 ng/mL suggest insufficiency. Optimal levels are ? > or = 30 ng/mL. 05/26/2011 8:47 AM EST 05/26/2011 12:22 PM EST Narrative Resulting Agency Comment [id number] Alison Francis MD LABORATORY Final Result Performing Organization Address City/State/[facility] Co de Phone Number [facility] [address] [place] [address] * T4, FREE THYROXINE (05/26/2011 8:47 AM EST) FT4 1.1 0.8 - 1.8 ng/dL [facility] Comment:{T4, FREE {[id number]) 05/26/2011 8:47 AM EST 05/26/2011 12:22 PM EST Narrative Resulting Agency Comment [id number] Alison Francis MD LABORATORY Final Result [facility] [address] [place] [address] * TSH (THYROTROPIN) (05/26/2011 8:47 AM EST) Pathologist [facility] TSH 2.04 0.40 - 4.50 mIU/L [facility] Comment:{TSH {[id number]) 05/26/2011 8:47 AM EST 05/26/2011 12:22 PM EST Narrative Resulting Agency Comment [id number] Alison Francis MD LABORATORY Final Result Performing Organization Address City/[facility]/ZIP Co de Phone Number [facility] [address] [place] [address] * CBC 5 PART DIFF (05/26/2011 8:47 AM EST) Pathologist [facility] WBC 6.6 3.8 - 10.8 Thousand/u L [facility] Comment:{WHITE BLOOD CELL CO UNT {[id number]) RBC 4.88 3.80 - 5.10 Million/uL [facility] Comment:{RED BLOOD CELL COUN T {[id number]) Hemoglobin 14.5 11.7 - 15.5 g/dL [facility] Comment:{HEMOGLOBIN {[id number]) Hematocrit 43.0 35.0 - 45.0 % [facility] Comment:{HEMATOCRIT {[id number]) MCV 88.0 80.0 - 100.0 fL [facility] Comment:{MCV {[id number]) MCH 29.6 27.0 - 33.0 pg [facility] Comment:{MCH {[id number]) MCHC 33.7 32.0 - 36.0 g/dL [facility] Comment:{MCHC {[id number]) RDW 13.4 11.0 - 15.0 % [facility] Comment:{RDW {[id number]) PLT 236 140 - 400 Thousand/u L [facility] Comment:{PLATELET COUNT {[id number]) MPV 8.7 7.5 - 11.5 fL [facility] Comment:{MPV {[id number]) Neutrophils # 4382 1500 - 7800 cells/uL [facility] Comment:{ABSOLUTE NEUTROPHIL S {[id number]) Lymphocytes # 1604 850 - 3900 cells/uL [facility] Comment:{ABSOLUTE LYMPHOCYTE S {[id number]) Monocytes # 436 200 - 950 cells/uL [facility] Comment:{ABSOLUTE MONOCYTES {[id number]) Eosinophils # 132 15 - 500 cells/uL [facility] Comment:{ABSOLUTE EOSINOPHIL S {[id number]) Basophils # 46 0 - 200 cells/uL [facility] Comment:{ABSOLUTE BASOPHILS {[id number]) Neutrophils % 66.4 % [facility] Comment:{NEUTROPHILS {[id number]) Lymphocytes % 24.3 % [facility] Comment:{LYMPHOCYTES {[id number]) Monocytes % 6.6 % [facility] Comment:{MONOCYTES {[id number]) Eosinophils % 2.0 % [facility] Comment:{EOSINOPHILS {[id number]) Basophils % 0.7 % [facility] Comment:{BASOPHILS {[id number]) 05/26/2011 8:47 AM EST 05/26/2011 12:22 PM EST Narrative Resulting Agency Comment [id number] Alison Francis MD LAB SAME DAY RESULT Final Resul t [facility] [address] [place] [address] * (ABNORMAL) BASIC METABOLIC PANEL W/GLOMERULAR FILTRATION RATE (EGFR) (05/26/2011 8:47 AM EST) Glucose 99 65 - 99 mg/dL [facility] Comment: {GLUCOSE {[id number]) ? Fasting reference interval Urea Nitrogen Blood (BUN) 31(H) 7 - 25 mg/dL [facility] Comment:{UREA NITROGEN (BUN) {[id number]) Creatinine 1.33(H) 0.60 - 0.93 mg/dL [facility] Comment: {CREATININE {[id number]) For patients >49 years of age, the reference limit for Creatinine is approximately 13% higher for people identified as -Micronesian. GFR 40(L) > OR = 60 mL/min/1. 73m2 [facility] Comment:{eGFR NON-AFR. AMERI CAN {[id number]) GFR () 46(L) > OR = 60 mL/min/1. 73m2 [facility] Comment:{eGFR AMERIC AN {[id number]) BUN/Creatinine Ratio 23(H) 6 - 22 (calc) [facility] Comment:{BUN/CREATININE RATI O {[id number]) Sodium 140 135 - 146 mmol/L [facility] Comment:{SODIUM {[id number]) Potassium 3.9 3.5 - 5.3 mmol/L [facility] Comment:{POTASSIUM {[id number]) Chloride 107 98 - 110 mmol/L [facility] Comment:{CHLORIDE {[id number]) Carbon dioxide 21 21 - 33 mmol/L [facility] Comment:{CARBON DIOXIDE {[id number]) Calcium 9.9 8.6 - 10.4 mg/dL [facility] Comment:{CALCIUM {[id number]) 05/26/2011 8:47 AM EST 05/26/2011 12:22 PM EST Narrative [facility] - 05/26/2011 2:17 PM EST Please note that this estimated [...] needs for GFR calculation. Resulting Agency Comment [id number] us Alison Francis MD LABORATORY Final Result [facility] [address] [place] [address] * ASPARTATE AMINOTRANSFERASE (AST), SERUM (05/26/2011 8:47 AM EST) AST (SGOT) 26 10 - 35 U/L [facility] Comment:{AST {[id number]) 05/26/2011 8:47 AM EST 05/26/2011 12:22 PM EST Narrative Resulting Agency Comment [id number] Alison Francis MD LAB SAME DAY RESULT Final Resul t Performing Organization Address [facility] Co de Phone Number [facility] [address] [place] [address] * (ABNORMAL) LIPID PANEL + CARDIAC RISK WITH REFLEX TO LDL DIRECT (05/26/2011 8:47 AM EST) Cholesterol 233(H) 125 - 200 mg/dL [facility] Comment:{CHOLESTEROL, TOTAL {[id number]) HDL Cholesterol 59 > OR = 46 mg/dL [facility] Comment:{HDL CHOLESTEROL {[id number]) Triglyceride 113 <150 mg/dL [facility] Comment:{TRIGLYCERIDES {[id number]) LDL Cholesterol 151(H) <130 mg/dL (calc) [facility] Comment: {LDL-CHOLESTEROL {[id number]) Desirable range <100 mg/dL for patients with CHD or diabetes and <70 mg/dL for diabetic patients with known heart disease. CHOL/HDL Ratio 3.9 < OR = 5.0 (calc) [facility] Comment:{CHOL/HDLC RATIO {[id number]) 05/26/2011 8:47 AM EST 05/26/2011 12:22 PM EST Narrative Resulting Agency Comment [id number] us Alison Francis MD LABORATORY Final Result Performing Organization Address [facility] Co de Phone Number [facility] [address] [place] [address] * VITAMIN B12 (CYANOCOBALAMIN), SERUM (05/26/2011 8:47 AM EST) Vitamin B12 (Cobalamins) 922 200 - 1100 pg/mL [facility] Comment:{VITAMIN B12 {[id number]) 05/26/2011 8:47 AM EST 05/26/2011 12:22 PM EST Narrative Resulting Agency Comment [id number] Alison Francis MD LABORATORY Final Result [facility] [address] [place] [address] documented in this encounter Visit Diagnoses Diagnosis Vitamin B12 deficiency Other B-complex deficiencies Vitamin D Defiency Unspecified vitamin D deficiency Hypertension Unspecified essential hypertension Osteoporosis Osteoporosis, unspecified Back pain Backache, unspecified Hyperlipidemia; LDL Goal < 130 Other and unspecified hyperlipidemia documented in this encounter Additional Health Concerns Infection Onset Date Last Indicated Resolved Time COVID-19 Confirmed 07/11/2019 07/11/2019 0 8:12 PM EDT documented as of this encounter Care Teams Surveillance Officer Relationship Specialty Start Date End Date Alison Francis MD PCP - General 03/20/10 09/01/15 Shreyas Orellana MD PCP - General Internal Medicine 09/02/15 07/07/19 Ashanti Kumar MD PCP - General Family Medicine 07/08/19 07/09/19 Shreyas Orellana MD PCP - General Internal Medicine 07/10/19 09/06/19 Ashanti Kumar MD PCP - General Family Medicine 09/07/19 07/12/20 Vale Walls NP [address] [place] [address] PCP - General Geriatrics 07/13/20 Chastity Cortes MD [address] [place] [address] PCP - Backup PCP Geriatrics 10/23/20 03/30/21 Vale Walls NP [address] [place] [address] PCP - Backup PCP Geriatrics 10/06/21 documented as of this encounter
--- OUTSIDE RECORDS SUMMARY | 2024-05-10 10:09 | XMS_ITS | Encounter Summary ---
Author Organization [facility] Address [address] [place] [address] Care Team Providers Care Cone Picker Name Role Phone Vale Walls NP Primary Care Provider [phone] Vale Walls OUTDOOR ADVENTURE INSTRUCTOR Unavailable [phone] Reason for Visit * Reason Comments E-prescribing Refill Request Encounter Details Date Type Department Care Team ([facility] Contact Info) Description 04/11/2024 Refill [facility] [address] [place] [address] Vale Walls NP [address] [place], [place] [id number] E-prescribing Refill Request Social History Tobacco Use [...] Start Date Job End Date 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 The most recent pharmacy on file was used. When is the medication needed? within 48 hours, will send routine message Past and Future Appointments in Auth Provider Departments: Recent Visits Date Type Provider Dept 03/11/24 Home Visit Vale Walls NP [facility] 03/02/24 Office Visit Chalino Ye MD [facility] 03/01/24 Office Visit Rocio Gonzalez PA [facility] 01/18/24 Office Visit Jennifer Robles MD [facility] 10/25/23 Home Visit Vale Walls NP [facility] 08/23/23 CPE - Comprehensive Physical Exam Vale Walls NP [facility] 05/19/23 Office Visit Azalia Bang PA [facility] 05/17/23 Home Visit Vale Walls NP [facility] 01/24/23 Home Visit Vale Walls NP [facility] 01/04/23 Office Visit Chalino Ye MD [facility] Showing recent visits within past 720 days in an active department and meeting all other requirements Future Appointments No visits were found meeting these conditions. Showing future appointments within next 450 days in an active department and meeting all other requirements Requested Medication Details Note: Current encounter is in Geriatric Department. Overdue Labs and Comprehensive Physical Exams should be coordinated with geriatric nursing staff and patient should NOT be titrated off medication for overdue labs or appointments. Requested 12-Month Protocol Medications: Diclofenac Sodium 1 % Gel [Pharmacy Med Name: DICLOFENAC SODIUM 1% GEL], APPLY 2 G TOPICALLY 2 (TWO) TIMES A DAY IF NEEDED FOR PAIN TO AFFECTED AREA. Note: Clinical/Laboratory/Days Supply Review is still required. Further information may be available in the Non-Protocol Section. Visit Needs: None CPE Needs: Patient is 83 y.o. and is due for CPE based on Age Group. It has been more than 1 year since their last CPE and there is no future CPE Scheduled. No action to be taken by Pharmacy Navigator at this time. Last Billed CPE Details: Date: 12/20/2019 Department: [facility] Provider: SANTA WHITTAKER Visit Type: Physical Exam Next Scheduled CPE Details: None Requested Off-Protocol Medications: Diclofenac Sodium 1 % Gel [Pharmacy Med Name: DICLOFENAC SODIUM 1% GEL], APPLY 2 G TOPICALLY 2 (TWO) TIMES A DAY IF NEEDED FOR PAIN TO AFFECTED AREA. Pertinent lab results: No labs suggested for any medication orders signed or pended in this encounter. Refresh if any orders changed. BP Readings from Last 1 Encounters: 03/11/24 (!) 158/66 Outstanding Lab Orders (Orders in bold are overdue or due now and should be done as soon as possible) Test Expected Date Ordering Provider CBC INCLUDES DIFFERENTIAL AND PLATELET COUNT 08/23/2023 Vale Walls NP COMPREHENSIVE METABOLIC PANEL WITH GFR 08/23/2023 Vale Walls NP VITAMIN B12 (CYANOCOBALAMIN), SERUM 08/23/2023 Vale Walls NP MAGNESIUM, SERUM 08/23/2023 Vale Walls NP Pertinent Lab Results and Recommendations Pended medication order(s) and sent to provider. Patient expects medication renewal unless notifiedotherwise. documented in this encounter Plan of Treatment Not on file documented as of this encounter Goals Goal Patient Goal Type Associated Problems Recent Progress Patient-Stated? Author Blood Pressure < 140/90 Blood Pressure 158/66( 024 3:45 PM EST) No Marsha Guzman CMA documented as of this encounter Visit Diagnoses Not on filedocumented in this encounter Care Teams Cone Picker Relationship Specialty Start Date End Date Vale Walls NP [address] [place] [address] PCP - General Geriatrics 07/13/20 Vale Walls NP [address] [place] [address] PCP - Backup PCP Geriatrics 10/06/21 documented as of this encounter"
--- OUTSIDE RECORDS SUMMARY | 2024-05-10 10:09 | XMS_ITS | Encounter Summary ---
Author Organization [facility] Address [address] [place] [address] Care Team Providers Care Legal Support Analyst Name Role Phone Vale Walls COMPUTED TOMOGRAPHY TECHNICIAN Primary Care Provider [phone] Vale Walls COMPUTED TOMOGRAPHY TECHNICIAN Unavailable [phone] Reason for Visit * Reason Comments E-prescribing Refill Request Encounter Details Date Type Department Care Team (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 Lv 12/02/2022 with Martine. No f/u visit with a new provider. Utr letter sent out on 07/31/2023. Sent another UTR letter asking to call to make visit with new provider. Rx pended with zero refills. Faxed/E-prescribed medication renewal request(s) for Carlene Benjaminwinosme 83 y.o. female received from pharmacy. The most recent pharmacy on file was used. Last CPE with this specialty: Not Found Last OV with this specialty: 12/02/2022 Next OV: No future appointments. Pertinent lab results: No labs suggested for any medication orders signed or pended in this encounter. Refresh if any orders changed. Allergies: Codeine and Lisinopril BP Readings from Last 1 Encounters: 10/25/23 118/68 Outstanding Lab Orders (Orders in bold are overdue or due now and should be done as soon as possible) Test Expected Date Ordering Provider CBC INCLUDES DIFFERENTIAL AND PLATELET COUNT 08/23/2023 Vale Walls NP COMPREHENSIVE METABOLIC PANEL WITH GFR 08/23/2023 Vale Walls NP VITAMIN B12 (CYANOCOBALAMIN), SERUM 08/23/2023 Vale Walls NP MAGNESIUM, SERUM 08/23/2023 Vale Walls NP Outstanding Radiology Orders Test Ordered Date Ordering Provider MAMMOGRAPHY BILATERAL (DX: SCREENING FOR BREAST CANCER Z12.31/ V76.12) (1 YR FROM LAST) 10/04/2016 Shreyas Orellana MD Current Outpatient Medications on File Prior to Visit Medication Sig Dispense Refill Cholecalciferol (VITAMIN D-3) 50 MCG (2000 UT) capsule Take one capsule (2,000 Units total) by mouth 1 (one) time each day. 90 capsule 3 Pramipexole Dihydrochloride (MIRAPEX) 0.25 MG Tablet Take one tablet (0.25 mg total) by mouth everynight. 90 tablet 3 Verapamil HCl (CALAN) 80 MG tablet Take one tablet (80 mg total) by mouth 2 (two) times a day. 180 tablet 3 QUEtiapine Fumarate (SEROquel) 25 MG tablet take 1 tablet by mouth every day at night 90 tablet 0 Cetirizine HCl (ZyrTEC) 10 MG tablet TAKE ONE HALF TABLET (5 MG TOTAL) BY MOUTH 1 (ONE) TIME EACH DAY. 45 tablet 3 Diclofenac Sodium 1 % Gel Apply 2 g topically 2 (two) times a day if needed for pain To affected area. 50 g 3 Losartan Potassium (COZAAR) 25 MG tablet TAKE 1 TABLET (25 MG TOTAL) BY MOUTH EVERY DAY 90 tablet 3 FLUTICASONE PROPIONATE, NASAL, (FLONASE) 50 MCG/ACT nasal spray SPRAY 1 SPRAY INTO EACH NOSTRIL 1 TIME EACH DAY 3 each 3 DONEPEZIL HYDROCHLORIDE (ARICEPT) 5 MG tablet Take one tablet (5 mg total) by mouth every night. 90each 3 Nystatin (MYCOSTATIN) powder APPLY TO AFFECTED AREA TWICE A DAY 60 g 11 Polyethyl Glycol-Propyl Glycol (Systane) 0.4-0.3 % Solution Administer one drop to two drops into both eyes 4 (four) times a day each eye 10 mL 5 Vitamin B-12 (VITAMIN B-12) 50 MCG tablet Take one tablet (50 mcg total) by mouth 1 (one) time eachday 30 tablet 11 Ibuprofen (ADVIL) 200 MG Tab 1 TABLET 3 TIMES DAILY documented in this encounter Plan of Treatment Not on file documented as of this encounter Goals Goal Patient Goal Type Associated Problems Recent Progress Patient-Stated? Author Blood Pressure < 140/90 Blood Pressure 158/66( 024 3:45 PM EST) Marsha Farah CMA documented as of this encounter Visit Diagnoses Not on filedocumented in this encounter Care Teams Legal Support Analyst Relationship Specialty Start Date End Date Vale Walls NP [address] [place] [address] PCP - General Geriatrics 07/13/20 Vale Walls NP [address] [place] [address] PCP - Backup PCP Geriatrics 10/06/21 documented as of this encounter
--- OUTSIDE RECORDS SUMMARY | 2024-05-10 10:09 | XMS_ITS | Encounter Summary ---
Author Organization [facility] Address [address] [place] [address] Care Team Providers Care As400 Programmer Name Role Phone Alison Francis MD Primary Care Provider Shreyas Orellana MD Primary Care Provider UnavailAshanti Smith MD Primary Care Provider Shreyas Orellana MD Primary Care Provider UnavailAshanti Smith MD Primary Care Provider Vale Walls ICT SUPPORT AND TEST ENGINEERS Primary Care Provider Chastity Cortes MD Unavailable Vale Walls ICT SUPPORT AND TEST ENGINEERS Unavailable Encounter Details Date Type Department Care Team (Late st Contact Info) Description 11/01/2010 Orders Only July Internal Medicine [address] [place] [address] Alison Francis MD [address] [place] [address] Social History Tobacco Use Types Packs/Day Years [...] of this encounter Results * Due to [place] state law, this organization might not be sharing negative HIV tests. * VITAMIN B12 (CYANOCOBALAMIN), SERUM (05/26/2011 8:47 AM EST) Vitamin B12 (Cobalamins) 922 200 - 1100 pg/mL [facility] Comment:{VITAMIN B12 {[id number]) 05/26/2011 8:47 AM EST 05/26/2011 12:22 PM EST Narrative Resulting Agency Comment [id number] Alison Francis MD LABORATORY Final Result [facility] [address] [place] [address] documented in this encounter Visit Diagnoses Diagnosis Vitamin B12 deficiency- Primary Other B-complex deficiencies documented in this encounter Additional Health Concerns Infection Onset Date Last Indicated Resolved Time COVID-19 Confirmed 07/11/2019 07/11/2019 0 8:12 PM EDT documented as of this encounter Care Teams As400 Programmer Relationship Specialty Start Date End Date Alison Francis MD PCP - General 03/20/10 09/01/15 Shreyas Orellana MD PCP - General Internal Medicine 09/02/15 07/07/19 Ashanti Kumar MD PCP - General Family Medicine 07/08/19 07/09/19 Shreyas Orellana MD PCP - General Internal Medicine 07/10/19 09/06/19 Ashanti Kumar MD PCP - General Family Medicine 09/07/19 07/12/20 Vale Walls NP [address] [place] [address] PCP - General Geriatrics 07/13/20 Chastity Cortes MD [address] [place] [address] PCP - Backup PCP Geriatrics 10/23/20 03/30/21 Vale Walls NP [address] [place] [address] PCP - Backup PCP Geriatrics 10/06/21 documented as of this encounter
--- OUTSIDE RECORDS SUMMARY | 2024-05-10 10:09 | XMS_ITS | Encounter Summary ---
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
--- OUTSIDE RECORDS SUMMARY | 2024-05-10 10:09 | XMS_ITS | Clinical Summary ---
Author Organization [facility] Address [address] [place] [address] Care Team Providers Care Licensed Weigher Name Role Phone Vale Walls Primary Care Provider [phone] Allergies No known active allergies Medications verapamil [...] - 04/22/2024 11:59 PM EST Hospital Encounter [facility] XRay [address] [place] [address] Piero Hilton MD Pain Discharge Disposition: Home or Self Care () 04/22/2024 8:07 AM EST - 04/22/2024 11:59 PM EST Hospital Encounter [facility] Spine Procedure Clinic [address] [place] [address] Piero Hilton MD Radiculopathy of lumbar region (Primary Dx) Discharge Disposition: Home or Self Care () 04/18/2024 5:23 PM EST - 04/19/2024 3:15 PM EST Emergency [facility] Emergency Department [address] [place] [address] Fermin Hawkins MD Sheridan, Andrew R., MD Jiang, Zhenyang, MD Back pain at L4-L5 level (Primary Dx); Urinary tract infection without hematuria, site unspecified; Acute left-sided low back pain with left-sided sciatica; Impaired mobility Discharge Disposition: Home with Services (06) 04/18/2024 Telephone [facility] [address] [place] [address] Holli Fenton PA 04/12/2024 Orders Only [facility] [address] [place] [address] Holli Fenton PA Radiculopathy of lumbar region (Primary Dx) 04/12/2024 Telephone [facility] [address] [place] [address] Telephone Intake, Staff PAC Appt Request - Established [place] 04/11/2024 1:00 PM EST Telehealth [facility] [address] [place] [address] Holli Fenton PA Radiculopathy of lumbar region (Primary Dx); Spinal stenosis of lumbar region with neurogenic claudication; Sacral insufficiency fracture with routine healing 04/03/2024 Orders Only [facility] [address] [address] Holli Fenton PA Radiculopathy, lumbar region 03/25/2024 11:30 AM EST Office Visit [facility] [address] [place] [address] Holli Fenton PA Radiculopathy of lumbar region (Primary Dx) 03/14/2024 Orders Only [facility] - External Imaging [address] [place] [address] Radiology, External 03/14/2024 Orders Only [facility] - External Imaging [address] [place] [address] Radiology, External 03/11/2024 Telephone [facility] [address] [place] [address] Telephone Intake, Staff PAC [place] ED Escalation 03/09/2024 11:51 AM EST - 03/09/2024 7:06 PM EST Emergency [facility] Emergency Department [address] [place] [address] Marcia Charles MD Closed fracture of sacrum, unspecified portion of sacrum, initial encounter ([facility]) (Primary Dx) Discharge Disposition: Home or Self [...] Description 05/17/2024 11:00 AM EST Office Visit [facility] Rheumatology Clinic [address] [place] [address] Looping Inspector: Marcia Orlando MD [address] [place] [address] Yesica Mi PA [address] [place] [address] 07/11/2024 3:20 PM EDT Follow-Up [facility] [address] [place] [address] Piero Hilton MD [address] [place] [address] Health Maintenance Due Date Last Done Comments [...] complete this topic Procedures * Due to [place] state law, this organization might not be sharing negative HIV tests. Procedure Name Priority Date/Time Associated Diagnosis Comments [place] C-ARM INJECTION NON-REPORTABLE Routine 04/22/2024 12:19 PM EST Pain [place] NJX DX/THER SBST INTRLMNR LMBR/SAC W/IMG GDN [...] Last 3 Months Results * Due to [place] state law, this organization might not be sharing negative HIV tests. * FL C-Arm Injection Spine NONREPORTABLE (04/22/2024 12:19 PM EST) Narrative IMAGING - 04/22/2024 12:19 PM EST This procedure does not contain a result. Please see the surgeon's note for official report. us Piero ALICIA FLUOROSCOPY PROCEDURES Final Result IMAGING * [place] NJX DX/THER SBST INTRLMNR LMBR/SAC W/IMG GDN (04/22/2024 8:30 AM EST) Narrative Piero Hiltno MD - 04/22/2024 8:30 AM EST Piero [...] Patient's understanding of procedure matches consent: Yes [place] Protocol: ? Procedure consent matches procedure scheduled: [...] outpatient to the ambulatory injection suite at [facility]. ? Vital signs were monitored before [...] obtain the completed interpretation. ? Workstation ID: [id number] Narrative 04/19/2024 5:26 AM EST COMPARISON: CT lumbar spine 04/18/2024. ??Lumbar spine MRI 04/03/2024. FINDINGS AND Resulting Agency Comment [id number] Procedure Note Clem Holguin DO - 04/19/2024 COMPARISON: CT lumbar spine 04/18/2024. Lumbar spine MRI 04/03/2024. FINDINGS AND IMPRESSION: The bones are diffusely demineralized. Unchanged dextroconvex scoliosisof the lumbar spine and advanced multilevel degenerative changes ascharacterized on prior MRI. Unchanged degenerative grade 1anterolisthesis at L4-L5. Chronic compression deformity of the L6ehitwjqjo body. Unchanged subacute sacral insufficiency fractures. If this radiology report contains a blank impression section, it is anincomplete radiology report. Please contact the interpreting radiologistor applicable radiology division as soon as possible to obtain thecompleted interpretation. Workstation ID: [id number] us Elvis Tran MD IMG XR PROCEDURES [...] obtain the completed interpretation. ? Workstation ID: [id number] Up-to-date CT equipment and radiation dose reduction techniques were employed. CTDIvol: 14.7 mGy. DLP: 672 mGy-cm. ??The following accession numbers are related to this dose report [id number]: [id number] Up-to-date CT equipment and radiation dose reduction techniques were employed. CTDIvol: 14.7 mGy. DLP: 672 mGy-cm. ??The following accession numbers are related to this dose report [id number]: [id number] Narrative 04/18/2024 10:15 PM EST COMPARISON: 03/09/2024. [...] described sacral insufficiency fractures. Resulting Agency Comment [id number] Procedure Note Harpreet Estrada MD - 04/18/2024 [...] possible to obtain thecompleted interpretation. Workstation ID: [id number] Up-to-date CT equipment and radiation dose reduction techniques wereemployed. CTDIvol: 14.7 mGy. DLP: 672 mGy-cm. The following accessionnumbers are related to this dose report [id number]: [id number] Up-to-date CT equipment and radiation dose reduction techniques wereemployed. CTDIvol: 14.7 mGy. DLP: 672 mGy-cm. The following accessionnumbers are related to this dose report [id number]: [id number] us Fermin Hawkins MD [facility] CT PROCEDURES Final Result * CT Abd [...] obtain the completed interpretation. ? Workstation ID: [id number] Up-to-date CT equipment and radiation dose reduction techniques were employed. CTDIvol: 14.7 mGy. DLP: 672 mGy-cm. ??The following accession numbers are related to this dose report [id number]: [id number] Up-to-date CT equipment and radiation dose reduction techniques were employed. CTDIvol: 14.7 mGy. DLP: 672 mGy-cm. ??The following accession numbers are related to this dose report [id number]: [id number] Narrative 04/18/2024 10:15 PM EST COMPARISON: 03/09/2024. [...] described sacral insufficiency fractures. Resulting Agency Comment [id number] Procedure Note Harpreet Estrada MD - 04/18/2024 [...] possible to obtain thecompleted interpretation. Workstation ID: [id number] Up-to-date CT equipment and radiation dose reduction techniques wereemployed. CTDIvol: 14.7 mGy. DLP: 672 mGy-cm. The following accessionnumbers are related to this dose report [id number]: [id number] Up-to-date CT equipment and radiation dose reduction techniques wereemployed. CTDIvol: 14.7 mGy. DLP: 672 mGy-cm. The following accessionnumbers are related to this dose report [id number]: [id number] us Fermin Hawkins MD IMG CT PROCEDURES Final Result * [place] Top, Urine (04/18/2024 6:43 PM EST) Extra Tube Hold for add-ons. 04/18/2024 11:05 PM EST [facility] Comment:Auto resulted. Urine Urine specimen collection, clean catch / Unknown Non-Blood Collection / Unknown 04/18/2024 6:43 PM EST 04/18/2024 6:43 PM EST us Fermin Hawkins MD LAB URINE ORDERABLES Final Resul t [facility] [address] [place] [address], * (ABNORMAL) Urinalysis W/Reflex to Microscopic & Culture (04/18/2024 6:43 PM EST) Color, Urine Yellow Colorless, Light Yellow, Yellow, Dark Yellow 04/18/2024 7:03 PM EST [facility] Clarity, Urine Slightly Cloudy(A) Clear 04/18/2024 7:03 PM EST [facility] Specific [place], Urine 1.025 1.005 - 1.030 04/18/2024 7:03 PM [facility] pH, Urine 5.0 4.6 - 8.0 04/18/2024 7:03 PM [facility] Protein, Urine Negative Negative 04/18/2024 7:03 PM EST [facility] Glucose, Urine Negative Negative 04/18/2024 7:03 PM EST [facility] Ketones, Urine Negative Negative 04/18/2024 7:03 PM EST [facility] Bilirubin, Urine Negative Negative 04/18/2024 7:03 PM EST [facility] Blood, Urine Negative Negative 04/18/2024 7:03 PM EST [facility] Nitrite, Urine Negative Negative 04/18/2024 7:03 PM EST [facility] Urobilinogen, Urine Positive(A) Normal 04/18/2024 7:03 PM [facility] Leukocyte Esterase, Urine 1+(A) Negative 04/18/2024 7:03 PM [facility] WBC, Urine 10(H) 0 - 2 /HPF 04/18/2024 7:03 PM [facility] RBC, Urine 2 0 - 2 /HPF 04/18/2024 7:03 PM [facility] Hyaline Casts, Urine 2 0 - 2 /LPF 04/18/2024 7:03 PM EST [facility] Squamous Epithelial Cells, Urine 4 /HPF 04/18/2024 7:03 PM EST [facility] Bacteria, Urine Rare(A) None /HPF /HPF 04/18/2024 7:03 PM EST [facility] Mucus, Urine Rare /LPF 04/18/2024 7:03 PM EST [facility] Urine Urine specimen collection, clean catch / Unknown Non-Blood Collection / Unknown 04/18/2024 6:43 PM EST 04/18/2024 6:43 PM EST Fermin Hawkins MD LAB URINE ORDERABLES Final Resul t [facility] [address] [place] [address], [place] * Urine Culture, Routine (04/18/2024 6:43 PM EST) Culture Mixed genital carmelita isolated. These superficial bacteria are not indicative of a urinary tract infection. No further organism identification is warranted on this specimen. 04/20/2024 1:03 AM EST [facility] Urine Urine specimen collection, clean catch / Unknown Non-Blood Collection / Unknown 04/18/2024 6:43 PM EST 04/18/2024 7:02 PM EST Narrative [facility] - 04/20/2024 1:03 AM EST [facility] Received Date: MICRO NUMBER: [id number] SPECIMEN QUALITY: Adequate SOURCE: URINE CLEAN CATCH STATUS: FINAL If clinically indicated, recollect clean-catch, mid-stream urine and transfer immediately to Urine Culture Transport Tube. Elvis Tran MD LAB MICROBIOLOGY - GENERAL ORDERABLES Final Result [facility] [address], [place] [address], [place] [phone] [facility] [address], [place] [address], [place] [phone] * (ABNORMAL) CBC Auto Differential (04/18/2024 12:18 PM EST) Only the most recent of2 resultswithin the time period is included. WBC 9.0 3.8 - 10.8 10*3/uL 04/18/2024 12:40 PM EST [facility] RBC 4.45 3.80 - 5.10 10*6/uL 04/18/2024 12:40 PM EST [facility] Hemoglobin 12.7 11.7 - 15.5 g/dL 04/18/2024 12:40 PM EST [facility] Hematocrit 38.4 35.0 - 45.0 % 04/18/2024 12:40 PM EST [facility] MCV 86.3 80.0 - 100.0 fL 04/18/2024 12:40 PM EST [facility] MCH 28.5 27.0 - 33.0 pg 04/18/2024 12:40 PM EST [facility] MCHC 33.1 32.0 - 36.0 g/dL 04/18/2024 12:40 PM EST [facility] RDW 14.0 11.0 - 15.0 % 04/18/2024 12:40 PM EST [facility] Platelets 219 140 - 400 10*3/uL 04/18/2024 12:40 PM EST [facility] MPV 8.9 7.5 - 12.5 fL 04/18/2024 12:40 PM EST [facility] Neutrophil % 69.1 % 04/18/2024 12:40 PM EST [facility] Immature Grans % 0.4 0.0 - 0.9 % 04/18/2024 12:40 PM EST [facility] Lymphocyte % 18.8 % 04/18/2024 12:40 PM EST [facility] Monocyte % 8.3 % 04/18/2024 12:40 PM EST [facility] Eosinophil % 2.8 % 04/18/2024 12:40 PM EST [facility] Basophil % 0.6 % 04/18/2024 12:40 PM EST [facility] Neutrophil # 6.21 1.50 - 7.80 10*3/uL 04/18/2024 12:40 PM EST [facility] Immature Grans # 0.04(H) <=0.03 10*3/uL 04/18/2024 12:40 PM EST [facility] Lymphocyte # 1.70 0.85 - 3.90 10*3/uL 04/18/2024 12:40 PM EST [facility] Monocyte # 0.80 0.20 - 0.95 10*3/uL 04/18/2024 12:40 PM EST [facility] Eosinophil # 0.30 0.02 - 0.50 10*3/uL 04/18/2024 12:40 PM EST [facility] Basophil # 0.10 0.00 - 0.20 10*3/uL 04/18/2024 12:40 PM EST [facility] nRBC % 0.0 /100 WBCs 04/18/2024 12:40 PM EST [facility] nRBC # <0.01 <0.01 10*3/uL 04/18/2024 12:40 PM EST [facility] Blood Structure of peripheral vein / Unknown Venipuncture / Unknown 04/18/2024 12:18 PM EST 04/18/2024 12:33 PM EST us Fermin Hawkins MD LAB BLOOD ORDERABLES Final Resul t [facility] [address] [place] [address], [place] * (ABNORMAL) Comprehensive Metabolic Panel (If age > 70) (04/18/2024 12:18 PM EST) Only the most recent of2 resultswithin the time period is included. NA 138 135 - 145 mmol/L 04/18/2024 1:35 PM EST [facility] K 4.2 3.5 - 5.3 mmol/L 04/18/2024 1:35 PM EST [facility] Cl 107 98 - 107 mmol/L 04/18/2024 1:35 PM EST [facility] CO2 19(L) 22 - 32 mmol/L 04/18/2024 1:35 PM EST [facility] Anion Gap 12 5 - 15 04/18/2024 1:35 PM [facility] Glucose 99 65 - 99 mg/dL 04/18/2024 1:35 PM EST [facility] Creatinine 0.89 0.50 - 1.20 mg/dL 04/18/2024 1:35 PM [facility] Calcium 9.3 8.6 - 10.5 mg/dL 04/18/2024 1:35 PM [facility] Total Protein 6.8 6.0 - 8.0 g/dL 04/18/2024 1:35 PM EST [facility] Albumin 3.8 3.5 - 5.2 g/dL 04/18/2024 1:35 PM [facility] Bilirubin, Total 0.5 0.2 - 1.2 mg/dL 04/18/2024 1:35 PM [facility] Alkaline Phosphatase 181(H) 35 - 129 U/L 04/18/2024 1:35 PM [facility] AST 25 10 - 40 U/L 04/18/2024 1:35 PM [facility] ALT 9(L) 10 - 40 U/L 04/18/2024 1:35 PM EST [facility] BUN 24(H) 7 - 23 mg/dL 04/18/2024 1:35 PM EST [facility] eGFR 64 >=60 mL/min/1. 73m2 04/18/2024 1:35 PM EST [facility] Comment:The estimated glomer [...] - 4.2 g/dL 04/18/2024 1:35 PM EST [facility] A/G Ratio 1.3(L) 1.5 - 3.0 04/18/2024 1:35 PM EST [facility] Blood Structure of peripheral vein / Unknown Venipuncture / Unknown 04/18/2024 12:18 PM EST 04/18/2024 12:33 PM EST us Fermin Hawkins MD LAB BLOOD ORDERABLES Final Resul t [facility] [address] [place] [address], [place] * MRI Lumbar Spine WO Contrast [...] 4. ??Probable chronic compression deformity at L1. *[place] critical alert A(n) [place] actionable finding has been communicated to the ordering or responsible provider via the [employer] system on 04/06/2024 11:04 AM. ??Receipt of this communication by the responsible provider will be documented in [employer] upon receiving acknowledgement if applicable, Message ID [id number]. If this radiology report contains a blank impression section, it is an incomplete radiology report. ??Please contact the interpreting radiologist or applicable radiology division as soon as possible to obtain the completed interpretation. ? Workstation ID: [id number] Narrative 04/06/2024 11:04 AM EST EXAMINATION: MRI [...] CT abdomen/pelvis dated 03/09/2024. Resulting Agency Comment [id number] Procedure Note Ree Blanton MD - 04/06/2024 [...] involving the bilateral sacral ala spanning the S1-P1hppvjvzqs bodies consistent with reactive changes secondary to [...] 4. 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 *[place] critical alert A(n) [place] actionable finding has been communicated to the ordering orresponsible provider via the [employer] system on04/06/2024 11:04 AM. Receipt of this communication by the responsibleprovider will be documented in [facility] Findings uponreceiving acknowledgement if applicable, Message ID [id number]. If this radiology report contains a blank impression section, it is anincomplete radiology report. Please contact the interpreting radiologistor applicable radiology division as soon as possible to obtain thecompleted interpretation. Workstation ID: [id number] Holli CLAUDIO IMPaul MRI PROCEDURES Final Resul [...] obtain the completed interpretation. ? Workstation ID: [id number] Narrative 03/09/2024 7:00 PM EST COMPARISON: CT from earlier in the same day. FINDINGS AND Resulting Agency Comment [id number] Procedure Note Harpreet Estrada MD - 03/09/2024 [...] possible to obtain thecompleted interpretation. Workstation ID: [id number] Marcia Charles MD IMG XR PROCEDURES Final Resu lt from Last 3 Months Insurance [facility] Advance Directives * Full Code (Latest Code Status on File) Date Activated Date Inactivated Comments 04/19/2024 3:13 AM 04/19/2024 5:15 PM * Presumed Full Code Date Activated Date Inactivated Comments 04/19/2024 12:08 AM 04/19/2024 3:13 AM * Presumed Full Code Date Activated Date Inactivated Comments 07/18/2017 1:44 AM 07/18/2017 6:19 PM Care Teams Licensed Weigher Relationship Specialty Start Date End Date Vale Walls [address] [place] [id number] PCP - General Nurse Practitioner 03/08/24
--- OUTSIDE RECORDS SUMMARY | 2024-05-10 10:09 | XMS_ITS | Encounter Summary ---
Author Organization [facility] Address [address] [place] [address] Care Team Providers Care Population Health Coach Name Role Phone Shreyas Orellana MD Primary Care Provider Unavaila Ashanti Shetty MD Primary Care Provider Vale Walls CERAMIC MAKER DEMONSTRATOR Primary Care Provider [phone] Chastity Cortes MD Unavailable [phone] [employer] CERAMIC MAKER DEMONSTRATOR Unavailable [phone] Encounter Details Date Type Department Care Team (Late st Contact Info) Description 07/11/2019 Orders Only [facility]CELL[facility] [phone] Andrew Davis MD [address] [place] [address] [id number] Social History Tobacco Use Types Packs/Day Years [...] have Coronavirus / COVID-19? No / Unsure 07/10/2019 10:13 AM EDT documented as of this encounter Progress Notes * Andrew Davis MD - 07/11/2019 11:25 AM EDT Noted, results and counseling provided by composition tile layer MD documented in this encounter Plan of Treatment Not on file documented as of this encounter Goals Goal Patient Goal Type Associated Problems Recent Progress Patient-Stated? Author Blood Pressure < 140/90 Blood Pressure 158/66( 024 3:45 PM EST) Marsha Farah CMA documented as of this encounter Procedures * Due to [place] law, this organization might not be sharing negative HIV tests. Procedure Name Priority Date/Time Associated Diagnosis Comments SARS COV 2 RNA(COVID 19), QUALITATIVE NAAT Routine 07/11/2019 11:25 AM EDT Special screening examination for unspecified viral disease documented in this encounter Results * Due to [facility] law, this organization might not be sharing negative HIV tests. * (ABNORMAL) SARS COV 2 RNA(COVID 19), QUALITATIVE NAAT (07/11/2019 11:25 AM EDT) SARS-COV-2 RNA DETECTED( A) NOT DETECTED [employer] Comment: A Detected result is considered a positive test result for COVID-19. ??This indicates that RNA from SARS-CoV-2 (formerly 2019-nCoV) was detected, and the patient is infected with the virus and presumed to be contagious. If requested by public health authority, specimen will be sent for additional testing. Due to the current public health emergency, [email or web address] is receiving a high volume of samples from a wide variety of swabs and media for COVID-19 testing. In order to serve patients during this public health crisis, samples from appropriate clinical sources are being tested. Negative test results derived from specimens received in non-commercially manufactured viral collection and transport media, or in media and sample collection kits not yet authorized by FDA for COVID-19 testing should be cautiously evaluated and the patient potentially subjected to extra precautions such as additional clinical monitoring, including collection of an additional specimen. This test has been authorized by the FDA under an Emergency Use Authorization (EUA) for use by authorized laboratories. Methodology: ??Real-Time RT-PCR Please review the Fact Sheets for health care providers, and patients and the FDA authorized labeling available on the [employer] website: [email or web address]/Covid19. 07/11/2019 11:2 5 AM EDT 07/11/2019 4:43 PM EDT Narrative Resulting Agency Comment [id number] Andrew Davis MD LABORATORY Final Result [facility] [address] [place] [address] documented in this encounter Visit Diagnoses Diagnosis Special screening examination for unspecified viral disease documented in this encounter Additional Health Concerns Infection Onset Date Last Indicated Resolved Time COVID-19 Confirmed 07/11/2019 07/11/2019 0 8:12 PM EDT documented as of this encounter Care Teams Population Health Coach Relationship Specialty Start Date End Date Shreyas Orellana MD PCP - General Internal Medicine 07/10/19 09/06/19 Ashanti Kumar MD PCP - General Family Medicine 09/07/19 07/12/20 Vale Walls NP [address] [place] [address] PCP - General Geriatrics 07/13/20 Chastity Cortes MD [address] [place] [address] PCP - Backup PCP Geriatrics 10/23/20 03/30/21 Vale Walls NP [address] [place] [address] PCP - Backup PCP Geriatrics 10/06/21 documented as of this encounter
--- OUTSIDE RECORDS SUMMARY | 2024-05-10 10:09 | XMS_ITS | Referral Summary ---
Author Organization [facility] Address [address] [place] [address] Care Team Providers Care Alliance Consultant Name Role Phone Vale Walls Primary Care Provider [phone] Encounters Date Type Department Care Team Description 04/22/2024 8:07 AM EST - 04/22/2024 11:59 PM EST Hospital Encounter [facility] XRay [address] [place] [phone] Piero Hilton MD Pain Discharge Disposition: Home or Self Care () 04/22/2024 8:07 AM EST - 04/22/2024 11:59 PM EST Hospital Encounter [facility] [address] [place] [address] Piero Hilton MD Radiculopathy of lumbar region (Primary Dx) Discharge Disposition: Home or Self Care () 04/18/2024 5:23 PM EST - 04/19/2024 3:15 PM EST Emergency [facility] Emergency Department [address] [place] [address] Fermin Hawkins MD Sheridan, Andrew R., MD Jiang, Zhenyang, MD Back pain at L4-L5 level (Primary Dx); Urinary tract infection without hematuria, site unspecified; Acute left-sided low back pain with left-sided sciatica; Impaired mobility Discharge Disposition: Home with Services () 04/18/2024 Telephone [facility] [address] [place] [phone] Holli Fenton PA 04/12/2024 Orders Only [facility] B [address] [place] [address] Holli Fenton PA Radiculopathy of lumbar region (Primary Dx) 04/12/2024 Telephone [facility] B [address] [place] [address] Telephone Intake, Staff PAC Appt Request - Established [place] 04/11/2024 1:00 PM EST Telehealth [facility] B [address] [place] [address] Holli Fenton PA Radiculopathy of lumbar region (Primary Dx); Spinal stenosis of lumbar region with neurogenic claudication; Sacral insufficiency fracture with routine healing 04/03/2024 Orders Only [facility] [address] [address] Holli Fenton PA Radiculopathy, lumbar region 03/25/2024 11:30 AM EST Office Visit [facility] A [address] [place] [address] Holli Fenton PA Radiculopathy of lumbar region (Primary Dx) 03/14/2024 Orders Only [facility] - External Imaging [address] [place] [address] Radiology, External 03/14/2024 Orders Only [facility] - External Imaging [address] [place] [address] Radiology, External 03/11/2024 Telephone [facility] A [address] [place] [address] Telephone Intake, Staff PAC [place] ED Escalation 03/09/2024 11:51 AM EST - 03/09/2024 7:06 PM EST Emergency [facility] Emergency Department [address] [place] [address] Marcia Charles MD Closed fracture of sacrum, [...] Description 05/17/2024 11:00 AM EST Office Visit [facility] Rheumatology Clinic [address] [place] [address] [employer]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 Procedure Name Priority Date/Time Associated Diagnosis Comments FL C-ARM INJECTION NON-REPORTABLE Routine 04/22/2024 12:19 PM EST Pain AR NJX DX/THER SBST INTRLMNR LMBR/SAC W/IMG GDN [...] Last 3 Months Results * Due to [place] state law, this organization might not be sharing negative HIV tests. * FL C-Arm Injection Spine NONREPORTABLE (04/22/2024 12:19 PM EST) Narrative IMAGING - 04/22/2024 12:19 PM EST This procedure does not contain a result. Please see the surgeon's note for official report. us Piero ALICIA FLUOROSCOPY PROCEDURES Final Result IMAGING * AR NJX DX/THER SBST INTRLMNR LMBR/SAC W/IMG GDN [...] Patient's understanding of procedure matches consent: Yes Dyess Protocol: ? Procedure consent matches procedure scheduled: [...] outpatient to the ambulatory injection suite at [facility]. ? Vital signs were monitored before [...] lateral fluoroscopic images. ??A radiopaque epidural catheter ([employer]) was advanced through the epidural needle [...] obtain the completed interpretation. ? Workstation ID: [id number] Narrative 04/19/2024 5:26 AM EST COMPARISON: CT lumbar spine 04/18/2024. ??Lumbar spine MRI 04/03/2024. FINDINGS AND Resulting Agency Comment [id number] Procedure Note Clem Holguin, DO - 04/19/2024 COMPARISON: CT lumbar spine 04/18/2024. Lumbar spine MRI 04/03/2024. FINDINGS AND IMPRESSION: The bones are diffusely demineralized. Unchanged dextroconvex scoliosisof the lumbar spine and advanced multilevel degenerative changes ascharacterized on prior MRI. Unchanged degenerative grade 1anterolisthesis at L4-L5. Chronic compression deformity of the R2asmoyiiss body. Unchanged subacute sacral insufficiency fractures. If this radiology report contains a blank impression section, it is anincomplete radiology report. Please contact the interpreting radiologistor applicable radiology division as soon as possible to obtain thecompleted interpretation. Workstation ID: [id number] Elvis Tran MD IMG XR PROCEDURES Final [...] obtain the completed interpretation. ? Workstation ID: [id number] Up-to-date CT equipment and radiation dose reduction techniques were employed. CTDIvol: 14.7 mGy. DLP: 672 mGy-cm. ??The following accession numbers are related to this dose report [id number]: [id number] Up-to-date CT equipment and radiation dose reduction techniques were employed. CTDIvol: 14.7 mGy. DLP: 672 mGy-cm. ??The following accession numbers are related to this dose report [id number]: [id number] Narrative 04/18/2024 10:15 PM EST COMPARISON: 03/09/2024. [...] described sacral insufficiency fractures. Resulting Agency Comment [id number] Procedure Note Harpreet Estrada MD - 04/18/2024 [...] possible to obtain thecompleted interpretation. Workstation ID: [id number] Up-to-date CT equipment and radiation dose reduction techniques wereemployed. CTDIvol: 14.7 mGy. DLP: 672 mGy-cm. The following accessionnumbers are related to this dose report [id number]: [id number] Up-to-date CT equipment and radiation dose reduction techniques wereemployed. CTDIvol: 14.7 mGy. DLP: 672 mGy-cm. The following accessionnumbers are related to this dose report [id number]: [id number] Fermin Hawkins MD IM CT PROCEDURES Final [...] obtain the completed interpretation. ? Workstation ID: [id number] Up-to-date CT equipment and radiation dose reduction techniques were employed. CTDIvol: 14.7 mGy. DLP: 672 mGy-cm. ??The following accession numbers are related to this dose report [id number]: [id number] Up-to-date CT equipment and radiation dose reduction techniques were employed. CTDIvol: 14.7 mGy. DLP: 672 mGy-cm. ??The following accession numbers are related to this dose report [id number]: [id number] Narrative 04/18/2024 10:15 PM EST COMPARISON: 03/09/2024. [...] described sacral insufficiency fractures. Resulting Agency Comment [id number] Procedure Note Harpreet Estrada MD - 04/18/2024 [...] possible to obtain thecompleted interpretation. Workstation ID: [id number] Up-to-date CT equipment and radiation dose reduction techniques wereemployed. CTDIvol: 14.7 mGy. DLP: 672 mGy-cm. The following accessionnumbers are related to this dose report [id number]: [id number] Up-to-date CT equipment and radiation dose reduction techniques wereemployed. CTDIvol: 14.7 mGy. DLP: 672 mGy-cm. The following accessionnumbers are related to this dose report [id number]: [id number] us Fermin Hawkins MD IMG CT PROCEDURES Final Result * [place] Top, Urine (04/18/2024 6:43 PM EST) Pathologist [facility] Extra Tube Hold for add-ons. 04/18/2024 11:05 PM EST [facility] Comment:Auto resulted. Urine Urine specimen collection, clean catch / Unknown Non-Blood Collection / Unknown 04/18/2024 6:43 PM EST 04/18/2024 6:43 PM EST us Fermin Hawkins MD LAB URINE ORDERABLES Final Resul t [facility] [address] [place] [address], * (ABNORMAL) Urinalysis W/Reflex to Microscopic & Culture (04/18/2024 6:43 PM EST) Pathologist [facility] Color, Urine Yellow Colorless, Light Yellow, Yellow, Dark Yellow 04/18/2024 7:03 PM EST [facility] Clarity, Urine Slightly Cloudy(A) Clear 04/18/2024 7:03 PM EST [facility] Specific Garrett, Urine 1.025 1.005 - 1.030 04/18/2024 7:03 PM EST [facility] pH, Urine 5.0 4.6 - 8.0 04/18/2024 7:03 PM EST [facility] Protein, Urine Negative Negative 04/18/2024 7:03 PM EST [facility] Glucose, Urine Negative Negative 04/18/2024 7:03 PM EST [facility] Ketones, Urine Negative Negative 04/18/2024 7:03 PM EST [facility] Bilirubin, Urine Negative Negative 04/18/2024 7:03 PM EST [facility] Blood, Urine Negative Negative 04/18/2024 7:03 PM EST [facility] Nitrite, Urine Negative Negative 04/18/2024 7:03 PM EST [facility] Urobilinogen, Urine Positive(A) Normal 04/18/2024 7:03 PM EST [facility] Leukocyte Esterase, Urine 1+(A) Negative 04/18/2024 7:03 PM EST [facility] WBC, Urine 10(H) 0 - 2 /HPF 04/18/2024 7:03 PM EST [facility] RBC, Urine 2 0 - 2 /HPF 04/18/2024 7:03 PM EST [facility] Hyaline Casts, Urine 2 0 - 2 /LPF 04/18/2024 7:03 PM EST [facility] Squamous Epithelial Cells, Urine 4 /HPF 04/18/2024 7:03 PM EST [facility] Bacteria, Urine Rare(A) None /HPF /HPF 04/18/2024 7:03 PM EST [facility] Mucus, Urine Rare /LPF 04/18/2024 7:03 PM EST [facility] Urine Urine specimen collection, clean catch / Unknown Non-Blood Collection / Unknown 04/18/2024 6:43 PM EST 04/18/2024 6:43 PM EST us Fermin Hawkins MD LAB URINE ORDERABLES Final Resul t [facility] [address] [place] [address], * Urine Culture, Routine (04/18/2024 6:43 PM EST) Culture Mixed genital carmelita isolated. These superficial bacteria are not indicative of a urinary tract infection. No further organism identification is warranted on this specimen. 04/20/2024 1:03 AM EST [employer] Urine Urine specimen collection, clean catch / Unknown Non-Blood Collection / Unknown 04/18/2024 6:43 PM EST 04/18/2024 7:02 PM EST Dany VERDE - 04/20/2024 1:03 AM EST [facility] Received Date: MICRO NUMBER: [id number] SPECIMEN QUALITY: Adequate SOURCE: URINE CLEAN CATCH STATUS: FINAL If clinically indicated, recollect clean-catch, mid-stream urine and transfer immediately to Urine Culture Transport Tube. us Elvis Tran MD LAB MICROBIOLOGY - GENERAL ORDERABLES Final Result [facility] [address], [place] [address], [place] [phone] [facility] [address] [facility] [address], [place] [address], * (ABNORMAL) CBC Auto Differential (04/18/2024 12:18 PM EST) Only the most recent of2 resultswithin the time period is included. WBC 9.0 3.8 - 10.8 10*3/uL 04/18/2024 12:40 PM EST [facility] RBC 4.45 3.80 - 5.10 10*6/uL 04/18/2024 12:40 PM EST [facility] Hemoglobin 12.7 11.7 - 15.5 g/dL 04/18/2024 12:40 PM EST [facility] Hematocrit 38.4 35.0 - 45.0 % 04/18/2024 12:40 PM EST [facility] MCV 86.3 80.0 - 100.0 fL 04/18/2024 12:40 PM EST [facility] MCH 28.5 27.0 - 33.0 pg 04/18/2024 12:40 PM EST [facility] MCHC 33.1 32.0 - 36.0 g/dL 04/18/2024 12:40 PM [facility] RDW 14.0 11.0 - 15.0 % 04/18/2024 12:40 PM [facility] Platelets 219 140 - 400 10*3/uL 04/18/2024 12:40 PM [facility] MPV 8.9 7.5 - 12.5 fL 04/18/2024 12:40 PM [facility] Neutrophil % 69.1 % 04/18/2024 12:40 PM [facility] Immature Grans % 0.4 0.0 - 0.9 % 04/18/2024 12:40 PM [facility] Lymphocyte % 18.8 % 04/18/2024 12:40 PM [facility] Monocyte % 8.3 % 04/18/2024 12:40 PM [facility] Eosinophil % 2.8 % 04/18/2024 12:40 PM [facility] Basophil % 0.6 % 04/18/2024 12:40 PM [facility] Neutrophil # 6.21 1.50 - 7.80 10*3/uL 04/18/2024 12:40 PM [facility] Immature Grans # 0.04(H) <=0.03 10*3/uL 04/18/2024 12:40 PM [facility] Lymphocyte # 1.70 0.85 - 3.90 10*3/uL 04/18/2024 12:40 PM [facility] Monocyte # 0.80 0.20 - 0.95 10*3/uL 04/18/2024 12:40 PM [facility] Eosinophil # 0.30 0.02 - 0.50 10*3/uL 04/18/2024 12:40 PM EST [facility] Basophil # 0.10 0.00 - 0.20 10*3/uL 04/18/2024 12:40 PM EST [facility] nRBC % 0.0 /100 WBCs 04/18/2024 12:40 PM EST [facility] nRBC # <0.01 <0.01 10*3/uL 04/18/2024 12:40 PM EST [facility] Blood Structure of peripheral vein / Unknown Venipuncture / Unknown 04/18/2024 12:18 PM EST 04/18/2024 12:33 PM EST us Fermin Hawkins MD LAB BLOOD ORDERABLES Final Resul t [facility] [address] [place] [address], * (ABNORMAL) Comprehensive Metabolic Panel (If age > 70) (04/18/2024 12:18 PM EST) Only the most recent of2 resultswithin the time period is included. NA 138 135 - 145 mmol/L 04/18/2024 1:35 PM EST [facility] K 4.2 3.5 - 5.3 mmol/L 04/18/2024 1:35 PM EST [facility] Cl 107 98 - 107 mmol/L 04/18/2024 1:35 PM EST [facility] CO2 19(L) 22 - 32 mmol/L 04/18/2024 1:35 PM EST [facility] Anion Gap 12 5 - 15 04/18/2024 1:35 PM EST [facility] Glucose 99 65 - 99 mg/dL 04/18/2024 1:35 PM EST [facility] Creatinine 0.89 0.50 - 1.20 mg/dL 04/18/2024 1:35 PM EST [facility] Calcium 9.3 8.6 - 10.5 mg/dL 04/18/2024 1:35 PM [facility] Total Protein 6.8 6.0 - 8.0 g/dL 04/18/2024 1:35 PM [facility] Albumin 3.8 3.5 - 5.2 g/dL 04/18/2024 1:35 PM [facility] Bilirubin, Total 0.5 0.2 - 1.2 mg/dL 04/18/2024 1:35 PM [facility] Alkaline Phosphatase 181(H) 35 - 129 U/L 04/18/2024 1:35 PM [facility] AST 25 10 - 40 U/L 04/18/2024 1:35 PM [facility] ALT 9(L) 10 - 40 U/L 04/18/2024 1:35 PM [facility] BUN 24(H) 7 - 23 mg/dL 04/18/2024 1:35 PM [facility] eGFR 64 >=60 mL/min/1. 73m2 04/18/2024 1:35 PM [facility] Comment:The estimated glomer ular [...] 2.1 - 4.2 g/dL 04/18/2024 1:35 PM [facility] A/G Ratio 1.3(L) 1.5 - 3.0 04/18/2024 1:35 PM EST [facility] Blood Structure of peripheral vein / Unknown Venipuncture / Unknown 04/18/2024 12:18 PM EST 04/18/2024 12:33 PM EST us Fermin Hawkins MD LAB BLOOD ORDERABLES Final Resul t [facility] [address] [place] [address], [place] * MRI Lumbar Spine WO Contrast [...] 4. ??Probable chronic compression deformity at L1. *Raven critical alert A(n) Raven actionable finding has been communicated to the ordering or responsible provider via the [employer] system on 04/06/2024 11:04 AM. ??Receipt of this communication by the responsible provider will be documented in [employer] Findings upon receiving acknowledgement if applicable, Message ID [id number]. If this radiology report contains a blank impression section, it is an incomplete radiology report. ??Please contact the interpreting radiologist or applicable radiology division as soon as possible to obtain the completed interpretation. ? Workstation ID: [id number] Narrative 04/06/2024 11:04 AM EST EXAMINATION: MRI [...] CT abdomen/pelvis dated 03/09/2024. Resulting Agency Comment [id number] Procedure Note Ree Blanotn MD - 04/06/2024 EXAMINATION: MRI of lumbar [...] involving the bilateral sacral ala spanning the S1-O2zfxrambzb bodies consistent with reactive changes secondary to [...] 4. 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 *Raven critical alert A(n) Raven actionable finding has been communicated to the ordering orresponsible provider via the [employer] Pan[employer] system on04/06/2024 11:04 AM. Receipt of this communication by the responsibleprovider will be documented in [employer]ig[employer] Findings uponreceiving acknowledgement if applicable, Message ID [id number]. If this radiology report contains a blank impression section, it is anincomplete radiology report. Please contact the interpreting radiologistor applicable radiology division as soon as possible to obtain thecompleted interpretation. Workstation ID: [id number] Holli CLAUDIO IMPaul MRI PROCEDURES Final Resul [...] obtain the completed interpretation. ? Workstation ID: [id number] Narrative 03/09/2024 7:00 PM EST COMPARISON: CT from earlier in the same day. FINDINGS AND Resulting Agency Comment [id number] Procedure Note Harpreet Estrada MD - 03/09/2024 [...] possible to obtain thecompleted interpretation. Workstation ID: [id number] Marcia Charles MD IMG XR PROCEDURES Final [...] 1:44 AM 07/18/2017 6:19 PM Care Teams Alliance Consultant Relationship Specialty Start Date End Date Vale Walls [address] [place] [address] PCP - General Nurse Practitioner 03/08/24
--- OUTSIDE RECORDS SUMMARY | 2024-05-10 10:09 | XMS_ITS | Encounter Summary ---
Author Organization [facility] Address [address] [place] [address] Care Team Providers Care Director Of Trauma Name Role Phone Ashanti Kumar MD Primary Care Provider Vale Walls SIEBEL ARCHITECT Primary Care Provider Chastity Cortes MD Unavailable [phone] CouVale badillo SIEBEL ARCHITECT Unavailable [phone] Encounter Details Date Type Department Care Team (Late st Contact Info) Description 12/27/2019 Orders Only [facility] [address] [place] [phone] Shreyas Orellana MD Social History Tobacco Use [...] Start Date Job End Date 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 No / Unsure 12/20/2019 10:50 AM EDT documented as of this encounter Progress Notes * Mitch Roaelle - 12/27/2019 11:02 AM EDT Please let pt know her labs are stable including blood sugar, kidney function, electrolytes and blood count documented in this encounter Plan of Treatment Not on file documented as of this encounter Goals Goal Patient Goal Type Associated Problems Recent Progress Patient-Stated? Author Blood Pressure < 140/90 Blood Pressure 158/66( 024 3:45 PM EST) No Marsha Guzman, JESSICA documented as of this encounter Procedures * Due to [place] law, this organization might not be sharing negative HIV tests. Procedure Name Priority Date/Time Associated Diagnosis Comments CBC INCLUDES DIFFERENTIAL AND PLATELET COUNT Routine 12/27/2019 11:02 AM EDT Pneumonia of left lower lobe due to infectious organism BASIC METABOLIC PANEL WITH (GFR) Routine 12/27/2019 11:02 AM EDT Pneumonia of left lower lobe due to infectious organism documented in this encounter Results * Due to [place] law, this organization might not be sharing negative HIV tests. * BASIC METABOLIC PANEL WITH (GFR) (12/27/2019 11:02 AM EDT) Glucose 87 65 - 99 mg/dL [facility] Comment:Fasting reference in terval Urea Nitrogen Blood (BUN) 22 7 - 25 mg/dL [facility] Creatinine 0.82 0.60 - 0.88 mg/dL [facility] Comment: For patients >49 years of age, the reference limit for Creatinine is approximately 13% higher for people identified as -Burkinan. EGFR 67 > OR = 60 mL/min/1 .73m2 [facility] GFR () 78 > OR = 60 mL/min/1 .73m2 [facility] BUN/Creatinine Ratio NOT APPLICABLE 6 - 22 (calc) [facility] Sodium 139 135 - 146 mmol/L [facility] Potassium 4.3 3.5 - 5.3 mmol/L [facility] Chloride 104 98 - 110 mmol/L [facility] Carbon dioxide 22 20 - 32 mmol/L [facility] Calcium 9.3 8.6 - 10.4 mg/dL [facility] 12/27/2019 11:0 2 AM EDT 12/27/2019 11:49 AM EDT Narrative [facility] - 12/27/2019 9:55 PM EDT Please note that this estimated [...] needs for GFR calculation. Resulting Agency Comment [id number] Shreyas Orellana MD LABORATORY Final Result [facility] [address] [place] [address] * CBC INCLUDES DIFFERENTIAL AND PLATELET COUNT (12/27/2019 11:02 AM EDT) WBC 7.3 3.8 - 10.8 Thousand/u L [facility] RBC 5.04 3.80 - 5.10 Million/uL [facility] Hemoglobin 14.3 11.7 - 15.5 g/dL [facility] Hematocrit 42.6 35.0 - 45.0 % [facility] MCV 84.5 80.0 - 100.0 fL [facility] MCH 28.4 27.0 - 33.0 pg [facility] MCHC 33.6 32.0 - 36.0 g/dL [facility] RDW 13.0 11.0 - 15.0 % [facility] PLT 234 140 - 400 Thousand/u L [facility] MPV 9.3 7.5 - 12.5 fL [facility] Neutrophils # 4657 1500 - 7800 cells/uL [facility] Lymphocytes # 1978 850 - 3900 cells/uL [facility] Monocytes # 489 200 - 950 cells/uL [facility] Eosinophils # 124 15 - 500 cells/uL [facility] Basophils # 51 0 - 200 cells/uL [facility] Neutrophils % 63.8 % [facility] Lymphocytes % 27.1 % [facility] Monocytes % 6.7 % [facility] Eosinophils % 1.7 % [facility] Basophils % 0.7 % [facility] 12/27/2019 11:0 2 AM EDT 12/27/2019 11:49 AM EDT Narrative Resulting Agency Comment [id number] us Shreyas Orellana MD LAB SAME DAY RESULT Final Resul t [facility] [address] [place] [address] documented in this encounter Visit Diagnoses Diagnosis Pneumonia of left lower lobe due to infectious organism documented in this encounter Care Teams Director Of Trauma Relationship Specialty Start Date End Date Ashanti Kumar MD PCP - General Family Medicine 09/07/19 07/12/20 Vale Walls NP [address] [place] [address] PCP - General Geriatrics 07/13/20 Chastity Cortes MD [address] [place] [address] PCP - Backup PCP Geriatrics 10/23/20 03/30/21 Vale Walls NP [address] [place] [address] PCP - Backup PCP Geriatrics 10/06/21 documented as of this encounter
--- OUTSIDE RECORDS SUMMARY | 2024-05-10 10:09 | XMS_ITS | Encounter Summary ---
Author Organization [facility] Address [address] [place] [address] Care Team Providers Care Music Engineer Name Role Phone Alison Francis MD Primary Care Provider Alison Francis MD Primary Care Provider [phone] Shreyas Orellana MD Primary Care Provider UnavailAshanti Smith MD Primary Care Provider Shreyas Orellana MD Primary Care Provider UnavailAshanti Smith MD Primary Care Provider Vale Walls TELEPHONE SERVICE ADVISER Primary Care Provider Chastity Cortes MD Unavailable [phone] Vale Walls TELEPHONE SERVICE ADVISER Unavailable [phone] Encounter Details Date Type Department Care Team (Late st Contact Info) Description 02/15/2010 Orders Only May Internal Medicine [address] [place] [id number] Alison Francis MD [address] [place] [address] [id number] Social History Tobacco Use Types Packs/Day Years [...] as of this encounter Progress Notes * Tito Alison - 02/18/2010 12:47 PM Willi Note: I have reviewed the results. Will d/w patient at next appt.02/25 documented in this encounter Plan of Treatment Not on file documented as of this encounter Procedures * Due to [place] [employer] law, this organization might not be sharing negative HIV tests. Procedure Name Priority Date/Time Associated Diagnosis Comments BASIC METABOLIC PANEL W/GLOMERULAR FILTRATION RATE (EGFR) Routine 02/15/2010 Annual physical exam LIPID PANEL + CARDIAC RISK WITH REFLEX TO LDL DIRECT Routine 02/15/2010 Hypertension Hyperlipidemia; LDL Goal < 130 CBC 5 PART DIFF Routine 02/15/2010 Annual physical exam Hypertension Hyperlipidemia; LDL Goal < 130 ALANINE AMINOTRANSFERASE (ALT), SERUM Routine 02/15/2010 Annual physical exam Hypertension Hyperlipidemia; LDL Goal < 130 ASPARTATE AMINOTRANSFERASE (AST), SERUM Routine 02/15/2010 Annual physical exam Hypertension Hyperlipidemia; LDL Goal < 130 TSH, THYROTROPIN Routine 02/15/2010 Annual physical exam T4, FREE THYROXINE Routine 02/15/2010 Annual physical exam VITAMIN B12 Routine 02/15/2010 Vitamin D Defiency Hyperlipidemia; LDL Goal < 130 Hypertension Osteoporosis VITAMIN D, 25-HYDROXY, LC/MS/MS Routine 02/15/2010 Vitamin D Defiency documented in this encounter Results * Due to [place] [employer] law, this organization might not be sharing negative HIV tests. * (ABNORMAL) VITAMIN D, 25-HYDROXY, LC/MS/MS (02/15/2010) Vitamin D, 25-OH, Total 25(L) 30 - 100 NG/ML [facility] VITAMIN D, 25-OH, D3 (CHOLECALCIFEROL ) 25 NG/ML [facility] VITAMIN D, 25-OH, D2 (CALCIFEROL) <4 NG/ML [facility] Comment: 25-OHD3 INDICATES BOTH ENDOGENOUS PRODUCTION AND SUPPLEMENTATION. 25-OHD2 IS AN INDICATOR OF EXOGENOUS SOURCES SUCH DIET OR SUPPLEMENTATION. THERAPY IS BASED ON MEASUREMENT OF TOTAL 25-OHD, WITH LEVELS <20 NG/ML INDICATIVE OF VITAMIN D DEFICIENCY WHILE LEVELS BETWEEN 20 NG/ML AND 30 NG/ML SUGGEST INSUFFICIENCY. OPTIMAL LEVELS ARE > OR = 30NG/ML. 02/15/2010 02/15/2010 6:0 8 PM EST us Alison Francis MD LABORATORY Final Result Performing Organization Address [facility] Co de Phone Number [facility] [address] [place] [address] * T4, FREE THYROXINE (02/15/2010) FT4 1.07 0.8 - 1.8 NG/DL [facility] 02/15/2010 02/15/2010 6:0 8 PM EST us Alison Francis MD LABORATORY Final Result Performing Organization Address [facility] Co de Phone Number [facility] [address] [place] [address] * TSH (THYROTROPIN) (02/15/2010) TSH, THYROTROPIN 1.730 0.40 - 4.50 UIU/ML [facility] 02/15/2010 02/15/2010 6:0 8 PM EST us Alison Francis MD LABORATORY Final Result Performing Organization Address [facility] Co de Phone Number [facility] [address] [place] [address] * ASPARTATE AMINOTRANSFERASE (AST), SERUM (02/15/2010) AST (SGOT) 22 10 - 35 U/L [facility] 02/15/2010 02/15/2010 6:0 8 PM EST us Alison Francis MD LAB SAME DAY RESULT Final Resul t Performing Organization Address [facility] de Phone Number [facility] [address] [place] [address] * ALANINE AMINOTRANSFERASE (ALT), SERUM (02/15/2010) ALT (SGPT) 20 6 - 40 U/L [facility] 02/15/2010 02/15/2010 6:0 8 PM EST us Alison Francis MD LAB SAME DAY RESULT Final Resul t Performing Organization Address [facility] de Phone Number [facility] [address] [place] [address] * (ABNORMAL) LIPID PANEL + CARDIAC RISK WITH REFLEX TO LDL DIRECT (02/15/2010) Pathologist [facility] CHOLESTEROL, TOTAL 212(H) 125 - 200 MG/DL [facility] TRIGLYCERIDES 142 30 - 149 MG/DL [facility] HDL-CHOLESTEROL 45 40 - 77 MG/DL [facility] LDL-CHOLESTEROL 139(H) 62 - 130 MG/DL [facility] Comment: RISK CATEGORY: ??LDL-CHOLESTEROL GOAL CHD AND CHD RISK EQUIVALENTS: ??<100 MULTIPLE (2+) FACTORS: ??<130 ZERO TO ONE RISK FACTOR: ??<160 CHD RELATIVE RISK RATIO (TOTAL/HDL) 4.71 0.0 - 5.0 [facility] Comment:(1.2 X AVERAGE) 02/15/2010 02/15/2010 6:0 8 PM EST us Alison Francis MD LABORATORY Final Result Performing Organization Address [facility] Co de Phone Number [facility] [address] [place] [address] * (ABNORMAL) BASIC METABOLIC PANEL W/GLOMERULAR FILTRATION RATE (EGFR) (02/15/2010) CALCIUM 8.9 8.6 - 10.2 MG/DL [facility] BUN 27(H) 7 - 25 MG/DL [facility] CREATININE 0.91 0.63 - 1.22 MG/DL [facility] BUN/Creatinine Ratio 30(H) 6 - 25 [facility] Glucose 92 65 - 99 MG/DL [facility] SODIUM 135 135 - 146 MMOL/L [facility] POTASSIUM 4.1 3.5 - 5.3 MMOL/L [facility] CHLORIDE 107 98 - 110 MMOL/L [facility] CARBON DIOXIDE 20(L) 21 - 33 MMOL/L [facility] GFR > 60 60 AND ABOVE [facility] Comment:UNITS: ML/MIN/1.73 S Q METERS EGFR > 60 60 AND ABOVE [facility] Comment:UNITS: ML/MIN/1.73 S Q METERS 02/15/2010 02/15/2010 6:0 8 PM EST Narrative [facility] - 02/16/2010 2:08 AM EST Please note that this estimated GFR [...] with more precise needs for GFR calculation. Alison Francis MD LABORATORY Final Result Performing Organization Address City/State/[facility] Co de Phone Number [facility] [address] [place] [address] * CBC 5 PART DIFF (02/15/2010) WHITE BLOOD COUNT 5.8 3.8 - 10.8 THOUS/UL [facility] RBC 4.39 3.80 - 5.10 MIL/UL [facility] Hemoglobin 13.1 11.7 - 15.5 G/DL [facility] HCT (HEMATOCRIT) 38.8 35.0 - 45.0 % [facility] MCV 88.4 80.0 - 100.0 FL [facility] MCH 29.7 27.0 - 33.0 PG [facility] MCHC 33.6 32.0 - 36.0 G/DL [facility] BAND % 0 0 - 5 % [facility] NEUTROPHIL % 55 48 - 75 % [facility] LYMPHOCYTE % 36 17 - 40 % [facility] MONOCYTE % 6 0 - 14 % [facility] EOSINOPHIL % 2 0 - 5 % [facility] BASOPHIL % 1 0 - 3 % [facility] ATYPICAL LYMPHOCYTE % 0 0 - 5 % [facility] PLATELETS 201 140 - 400 THOUS/UL [facility] BANDS # 0 0 - 750 CELLS/MCL [facility] NEUTROPHILS # 3190 1500 - 7800 CELLS/MCL [facility] LYMPHOCYTES # 2088 850 - 3900 CELLS/MCL [facility] MONOCYTES # 348 200 - 950 CELLS/MCL [facility] EOSINOPHILS # 116 15 - 550 CELLS/MCL [facility] BASOPHILS # 58 0 - 200 CELLS/MCL [facility] ATYPICAL LYMPHOCYTES # 0 0 - 200 CELLS/MCL [facility] RDW 12.9 11.0 - 15.0 % [facility] MPV 8.0 7.5 - 11.5 FL [facility] 02/15/2010 02/15/2010 6:0 8 PM EST Alison Francis MD LAB SAME DAY RESULT Final Resul t Performing Organization Address [facility] de Phone Number [facility] [address] [place] [address] * VITAMIN B12 (02/15/2010) VITB12 352 200 - 1100 PG/ML [facility] 02/15/2010 02/15/2010 6:0 8 PM EST us Alison Francis MD LABORATORY Final Result Performing Organization Address [facility] de Phone Number [facility] [address] [place] [address] documented in this encounter Visit Diagnoses Diagnosis Vitamin D Defiency Unspecified vitamin D deficiency Hyperlipidemia; LDL Goal < 130 Other and unspecified hyperlipidemia Hypertension Unspecified essential hypertension Osteoporosis Osteoporosis, unspecified Annual physical exam Routine general medical examination at a health care facility documented in this encounter Additional Health Concerns Infection Onset Date Last Indicated Resolved Time COVID-19 Confirmed 07/11/2019 07/11/2019 0 8:12 PM EDT documented as of this encounter Care Teams Music Engineer Relationship Specialty Start Date End Date Alison [...] Medicine 09/07/19 07/12/20 Vale Walls NP [address] [place] [address] PCP - General Geriatrics 07/13/20 Chastity Cortes MD [address] [place] [id number] PCP - Backup PCP Geriatrics 10/23/20 03/30/21 Vale Walls NP [address] [place] [address] PCP - Backup PCP Geriatrics 10/06/21 documented as of this encounter
--- OUTSIDE RECORDS SUMMARY | 2024-05-10 10:09 | XMS_ITS | Continuity of Care Document ---
Author Organization [facility] Address [address] [place] [address] Care Team Providers Care Retouching Operator Name Role Phone Vale Walls NP Primary Care Provider [phone] Vale Walls NP Unavailable Encounters Date Type Department Care Team Description 04/11/2024 Refill [facility] Neurology [address] [facility] [address] [place] [phone] Jillian Byrnes CRNP E-prescribing Refill Request 04/11/2024 Refill [facility] [address] [place] [address] Vale Walls NP E-prescribing Refill Request 04/11/2024 Refill [facility] [address] [place] [address] Vale Walls NP Error 04/09/2024 Telephone [facility] [address] [place] [address] Vale Walls NP Results 04/09/2024 Orders Only [facility]. Bone Density [address] [place] [address] Chelsea Jacobs NP 04/05/2024 Refill [facility] Orthopedic Surgery [address] [facility] [address] [place] [address] Fady Berg MD Med Change Request 03/31/2024 [facility] [address] [facility] [address] [place] [address] Jillian Byrnes CRNP E-prescribing Refill Request 03/26/2024 Telephone [facility] [address] [address] Vale Walls NP Pain; Results 03/22/2024 9:45 AM EST Radiology [facility]. Bone Density [address] [place] [address] At risk of fracture due to osteoporosis 03/15/2024 Orders Only [facility] [address] [address] Vale Walls NP 03/14/2024 2:40 PM EST Consult (Initial) [facility] Orthopedic Surgery [address] 123 [facility] [address] [place] [phone] Fady Berg MD Low back pain of over 3 months duration (Primary Dx); Closed nondisplaced zone I fracture of sacrum, initial encounter (HCC) 03/11/2024 1:30 PM EST Home Visit [address] [address] Vale Walls NP Closed nondisplaced zone I fracture of sacrum with routine healing, subsequent encounter; Slow transit constipation; Hypertension; Bright red blood per rectum; At risk of fracture due to osteoporosis 03/11/2024 [address]phone [address] [address] Vale Walls NP Patient Questions 03/07/2024 Office Visit NON FC SA NON FC UNK Provider, Unknown 03/07/[address] [address] Vale Walls NP Patient Questions ; Sciatica 03/04/2024 Refill [facility] [address] [place] [phone] Vale Walls NP E-prescribing Refill Request 03/02/2024 7:30 PM EST Office Visit [address] [place] [address] Chalino Ye MD Acute right-sided low back pain with right-sided sciatica (Primary Dx) 03/02/[address] [address] Rocio Gonzalez PA Leg Pain 03/02/2024 Telephone [facility] Night Triage [address] [place] [address] Vale Walls NP Labs/orders 03/01/2024 2:30 PM EST Radiology [address] [address] Gluteal pain 03/01/2024 1:30 PM EST Office Visit [address] [address] Rocio Gonzalez PA Lumbosacral radiculopathy (Primary Dx); Gluteal pain 03/01/2024 Telephone [facility] [address] [place] [address] Vale Walls NP Leg Pain 01/18/2024 9:00 AM EDT Office Visit [address] [address] Jennifer Robles MD Urinary pain (Primary Dx); Acute cystitis without hematuria 12/13/2023 Refill [facility] [address] [place] [phone] Vale Walls NP Refill Request 12/11/2023 Telephone [facility] [address] [place] [address] Vale Walls NP Medication Problem 12/07/2023 Refill [facility] [address] [place] [phone] Vale Walls NP Refill Request 11/29/2023 [facility] [address] [place] [address] [place] [phone] Stacie Berry PA E-prescribing Refill Request 11/20/[address] [address] Vale Walls NP E-prescribing Refill Request 10/25/[address] [address] Vale Walls NP E-prescribing Refill Request 10/25/2023 10:45 AM EDT Home Visit [address] [address] Vale Walls NP Seasonal allergic rhinitis due to pollen; Primary insomnia; Situational mixed anxiety and depressive disorder; Hypertension; Medication management 08/23/2023 4:15 PM EDT CPE - Comprehensive Physical Exam [address] [address] Vale Walls NP Restless leg (Primary Dx); Encounter for Medicare annual wellness exam; Unspecified dementia, unspecified severity, without behavioral disturbance, psychotic disturbance, mood disturbance, and anxiety (HCC) 07/30/2023 [facility] [address] [place] [address] [address] [place] [address] Areli Farley MD E-prescribing Refill Request 07/30/[address] [address] Vale Walls NP E-prescribing Refill Request 06/08/[address] [address] Vale Walls NP E-prescribing Refill Request 05/19/2023 4:15 PM EST Office Visit [address] [address] Azlaia Bang PA Allergic conjunctivitis of both eyes (Primary Dx) 05/17/2023 12:45 PM EST Home Visit [address] [address] Vale Walls NP Seasonal allergic rhinitis due to pollen; Vitamin D Defiency; Vitamin B12 deficiency; Stage 2 chronic kidney disease; Seizures (HCC); Primary insomnia; Mood disorder (HCC); Mild cognitive impairment; Hypertension; Bilateral impacted cerumen; Arteriosclerosis of aorta; Major depressive disorder, recurrent, in full remission (HCC) 05/05/[address] [address] Vale Walls NP E-prescribing Refill Request 03/21/[address] [address] Vale Walls NP Med Change Request 02/23/2023 Refill [facility] Neurology [address] [place] [phone] Areli Farley MD E-prescribing Refill Request 01/24/2023 11:30 AM EST Home Visit [address] [address] Vale Walls NP Mild cognitive impairment; Primary insomnia; Hypertension; Vitamin B12 deficiency; Stage 2 chronic kidney disease; Seizures (HCC); Mood disorder (HCC); Seasonal allergic rhinitis due to pollen 01/19/2023 Refill [facility] Neurology [address] [place] [phone] Areli Farley MD Med Change Request 01/04/2023 11:45 AM EDT Office Visit [address] [address] Chalino Ye MD Vaginal bleeding (Primary Dx); Hematuria, unspecified type; Rectal bleeding 01/04/[address] [address] Vale Walls NP Hematuria ; UTI 12/24/2022 Refill [facility] Neurology [address] [address] Areli Farley MD Med Change Request 12/13/2022 Telephone [facility] Neu[facility] [address] [address] Areli Farley MD Follow Up 12/02/2022 9:30 AM EDT Consult (Initial) [facility] Neurology [address] [facility] [address] [place] [address] Areli Farley MD Mild cognitive impairment (Primary Dx) 11/15/2022 Telephone [facility] [address] [place] [address] Vale Walls NP Results 11/14/2022 Orders Only [address] [address] Vale Walls NP 11/01/2022 12:45 PM EDT Home Visit [address] [address] Vale Walls NP Memory loss; Hypertension; Situational mixed anxiety and depressive disorder; Primary insomnia 09/19/[address] [address] Vale Walls NP E-prescribing Refill Request 09/19/[address] [address] Vale Walls NP Rash (/); Refill Request 08/16/[address] [address] Vale Walls NP Refill Request 08/12/2022 7:15 PM EDT Office Visit [address] [address] Jennifer Juarez, PA Acute conjunctivitis of left eye, unspecified acute conjunctivitis type (Primary Dx) 07/19/2022 9:00 AM EDT Home Visit [address] [address] Vale Walls NP Vitamin D Defiency; Vitamin B12 deficiency; Stage 2 chronic kidney disease; Situational mixed anxiety and depressive disorder; Seizures (HCC); Mood disorder (HCC); Hypertension; Candidiasis; Bilateral impacted cerumen; Chronic right-sided low back pain with bilateral sciatica 07/12/2022 Refill [facility] [address] [place] [phone] Vale Walls NP E-prescribing Refill Request 06/23/2022 Telephone [facility] [address] [place] [address] Vale Walls NP Diarrhea 06/06/2022 12:45 PM EDT Office Visit [facility] Optometry [address] [place] [phone] Lukasz Mensah, OD S/P bilateral cataract extraction 05/06/2022 10:50 AM EST Office Visit [facility] Ophthalmology [address] [place] [phone] Kavon Haskins MD Pseudophakia 05/05/2022 8:30 AM EST Surgery/Major Procedure [facility] [address] [place] [phone] Kavon Haskins MD Nuclear senile cataract of left eye 04/15/2022 9:30 AM EST Office Visit [facility] Ophthalmology [address] [place] [phone] Kavon Haskins MD Presence of intraocular lens; Nuclear senile cataract of left eye; Pseudophakia 04/14/2022 7:30 AM EST Surgery/Major Procedure [facility] [address] [place] [phone] Kavon Haskins MD Nuclear senile cataract of right eye 04/11/2022 Orders Only [facility] Cardiology [address] [facility] [address] [place] [address] Cornelio Barraza DO 04/11/2022 Orders Only [facility] Pre-Admission Testing 123 [facility] [address] [place] [address] Gail Barber NP 04/11/2022 Telephone [facility] Cardiology [address] [facility] [address] [place] [address] Gail Barber NP EKG 04/11/2022 10:00 AM EST Office Visit [facility] Pre-Admission Testing 123 [facility] [address] [place] [address] Gail Barber NP Preop examination (Primary Dx); Nuclear senile cataract of both eyes; Hypertension, benign; Other hyperlipidemia; Arteriosclerosis of aorta; Memory loss; Seizures (HCC); Stage 2 chronic kidney disease; Situational mixed anxiety and depressive disorder; Mood disorder (HCC) 03/22/2022 12:30 PM EST Home Visit [facility] [address] [place] [address] Vale Walls NP Mood disorder (HCC); Hypertension; Seizures (HCC); Arteriosclerosis of aorta; Adjustment insomnia 02/28/2022 Minor Procedure/Test [facility]. Ophthalmology [address] [place] [phone] Kavon Haskins MD 02/14/2022 10:20 AM EST Minor Procedure/Test [facility]. Ophthalmology [address] [place] [phone] Nuclear sclerosis, bilateral (Primary Dx) 12/24/2021 3:30 PM EDT Consult (Initial) [facility] Ophthalmology [address] [place] [phone] Kavon Haskins MD Nuclear sclerosis, bilateral; Keratoconjunctivitis sicca not specified as Sjogren's, bilateral; Dermatochalasis of both upper eyelids 12/13/2021 2:00 PM EDT Office Visit [facility] Optometry [address] [place] [phone] Kayy Reid, OD Encounter for vision examination with abnormal findings (Primary Dx); Presbyopia of both eyes; Hypermetropia of both eyes; Regular astigmatism of both eyes; Nuclear sclerotic cataract of both eyes; Essential hypertension; Dry eye syndrome of both eyes 11/28/[address] [address] Vale Walls NP E-prescribing Refill Request 11/02/[address] [address] Vale Walls NP E-prescribing Refill Request 10/31/[address] [address] Vale Walls NP E-prescribing Refill Request 10/06/2021 10:15 AM EDT Office Visit [facility] [address] [place] [address] Vale Walls NP Stage 2 chronic kidney disease (Primary Dx); Adjustment insomnia; Situational mixed anxiety and depressive disorder 07/21/2021 10:15 AM EDT Home Visit [facility] [address] [place] [address] Vale Wlals NP Hypertension; Stage 2 chronic kidney disease; Acute bilateral low back pain with bilateral sciatica; Vitamin B12 deficiency; Candidiasis 07/14/2021 Telephone [facility] [address] [place] [address] Vale Walls NP Geriatric Primary [facility] 07/06/[address] [address] Vale Walls NP E-prescribing Refill Request 07/05/2021 Orders Only [facility] [address] [place] [address] Vale Walls NP 06/24/[address] [phone] Vale Walls NP E-prescribing Refill Request 06/22/2021 Orders Only [facility] [address] [place] [address] Vale Walls NP 06/17/2021 Telephone [facility] [address] [address] Vale Walls NP Patient Questions 05/06/2021 9:00 AM EST Home Visit [address] [address] Vale Walls NP Advanced care planning/counseling discussion; Arteriosclerosis of aorta; Stage 2 chronic kidney disease; Vitamin B12 deficiency; Seizures (HCC); Memory loss; Hypertension; Vitamin D Defiency 04/02/2021 Refill [facility] [address] [place] [phone] Evette Roa NP E-prescribing Refill Request 12/17/[address] [address] Vale Walls NP Geriatric Primary Care 12/16/2020 9:00 AM EDT Home Visit [address] [address] Vale Walls NP Memory loss; Stage 2 chronic kidney disease; Hypertension; Advanced care planning/counseling discussion; Vitamin D Defiency; Vitamin B12 deficiency 11/30/2020 Telephone [facility] Optometry [address] [place] [phone] Kayy Reid, OD Prescription Assistance 11/27/2020 11:30 AM EDT Office Visit [facility] Optometry [address] [place] [phone] Kayy Reid, OD Encounter for vision examination with abnormal findings (Primary Dx); Presbyopia of both eyes; Hypermetropia of both eyes; Regular astigmatism of both eyes; Essential hypertension; Nuclear sclerotic cataract of both eyes; Dry eye syndrome of both eyes 11/09/2020 Orders Only [facility] [address] Vale Walls NP 11/09/2020 11:15 AM EDT Radiology [facility] Bone Density [address] [place] [address] Osteoporosis, unspecified osteoporosis type, unspecified pathological fracture presence 11/07/[address] [address] Ashanti Kumar MD E-prescribing Refill Request 10/14/2020 9:00 AM EDT Home Visit [address] [address] Vale Walls NP Advanced care planning/counseling discussion; Hypertension; Memory loss; Stage 2 chronic kidney disease; Vitamin B12 deficiency; Vitamin D Defiency 08/10/[address] [address] Ashanti Kumar MD E-prescribing Refill Request 07/14/[address] [address] Ashanti Kumar MD E-prescribing Refill Request 07/13/2020 Travel 07/13/2020 9:00 AM EDT Home Visit [address] [address] Vale Walls NP Hypertension; Stage 2 chronic kidney disease; Vitamin B12 deficiency; Vitamin D Defiency; Other hyperlipidemia; Memory loss; Age-related osteoporosis without current pathological fracture; Seizures (HCC); Arteriosclerosis of aorta; Right foot pain; Advanced care planning/counseling discussion 06/30/2020 Travel 06/30/2020 Telephone [facility] [address] [place] [phone] Ashanti Kumar MD Change of PCP 05/15/[address] [address] Ashanti Cornejo PA-C E-prescribing Refill Request 04/21/2020 Travel 04/19/[address] [address] Evette Roa NP E-prescribing Refill Request 04/13/2020 Travel 04/13/2020 8:45 AM EST Office Visit [address] [address] Evette Roa NP Memory loss (Primary Dx); Hypertension 03/24/[address] [address] Andrew Davis MD E-prescribing Refill Request 03/24/[address] [address] Ashanti Kumar MD E-prescribing Refill Request 03/09/[address] [address] Ashanti Kumar MD BP Follow Up 03/09/2020 Travel 03/09/2020 10:30 AM EST Nurse Visit [address] [address] Tami Mas RN Hypertension, unspecified type (Primary Dx) 02/28/2020 Orders Only [address] [address] Ashanti Kumar MD Medications 02/28/2020 Orders Only [address] [address] Ashanti Kumar MD 02/28/2020 Travel 02/28/2020 10:30 AM EST Nurse Visit [address] [address] Tami Mas RN Hypertension, unspecified type (Primary Dx) 01/31/[address] [address] Ashanti Kumar MD BP Follow Up 01/31/2020 Orders Only [address] [address] Mirna Almaraz, DOUG 01/31/2020 Travel 01/31/2020 1:30 PM EST Nurse Visit [address] [address] Mirna Almaraz, DOUG Hypertension; Hypertension, unspecified type 01/03/[address] [address] Andrew Davis MD BP Follow Up 01/03/2020 Travel 01/03/2020 1:30 PM EDT Nurse Visit [address] [address] Tmai Mas RN Hypertension, unspecified type (Primary Dx) 01/01/[address] [address] Evette Roa, BETZAIDA Results 12/27/2019 Orders Only [facility] [address] [place] [phone] Shreyas Orellana MD 12/27/2019 Orders Only [address] [address] Ashanti Kumar MD 12/20/[address] [address] Ashanti Kumar MD Labs/orders 12/20/2019 Travel 12/20/2019 11:15 AM EDT CPE - Comprehensive Physical Exam [address] [address] Ashanti Kumar MD Routine history and physical examination of adult (Primary Dx); Need for vaccination; Vitamin D Defiency; Vitamin B12 deficiency; Vitamin B12 deficiency; Other hyperlipidemia; Hypertension; Chronic Renal Insufficiency; Osteoporosis, unspecified osteoporosis type, unspecified pathological fracture presence; Memory loss 12/12/[address] [address] Ashanti Kumar MD E-prescribing Refill Request 10/03/[address] [address] Ashanti Kumar MD Covid 09/19/2019 Travel 09/17/[address] [address] Ashanti Kumar MD Refill Request 07/14/2019 Telephone [facility] [address] [place] [phone] Oskar Mckeon MD Information 07/14/2019 Telephone [facility] [address] [place] [phone] Oskar Mckeon MD Information 07/11/2019 Orders Only [facility] MISCELLANEOUS [phone] Andrew Davis MD 07/11/2019 11:00 AM EDT Office Visit [facility] [address] [place] [phone] Andrew Davis MD SOB (shortness of breath) on exertion (Primary Dx) 07/10/2019 Travel 07/10/2019 Telephone [facility] [address] [place] [phone] Shreyas Orellana MD Shortness of Breath; Fatigue 07/08/2019 Telephone [facility] [address] [place] [address] Shreyas Orellana MD Care Coordination Communication (Covid 19 ) 06/04/2019 Telephone [facility] [address] [place] [phone] Shreyas Orellana MD Labs/orders 06/03/2019 2:00 PM EDT Radiology [facility] X-Ray [address] [place] [address] Pneumonia of left lower lobe due to infectious organism (HCC) 06/03/2019 1:00 PM EDT Office Visit [facility] [address] [place] [phone] Shreyas Orellana MD Pneumonia of left lower lobe due to infectious organism (HCC) 06/03/2019 Travel 06/03/2019 Telephone [facility] [address] [place] [phone] Shreyas Orellana MD Weakness ; Nausea ; Sore Throat; Headache ; Fever 11/01/2018 10:30 AM EDT Office Visit [address] [address] Carissa Barbosa PA Urinary tract infection without hematuria, site unspecified (Primary Dx) 08/29/2018 Refill [facility] Medicine [address] [place] [phone] Shreyas Orellana MD Refill Request 08/16/[address] [address] Shreyas Orellana MD Results 08/08/2018 Orders Only [facility] [address] [place] [phone] Shreyas Orellana MD 08/08/2018 1:00 PM EDT Office Visit [facility] [address] [place] [phone] Shreyas Orellana MD Fatigue, unspecified type (Primary Dx) 08/06/2018 Telephone [facility] [address] [place] [phone] Shreyas Orellana MD Dizziness 07/24/2018 2:00 PM EDT Minor Procedure/Test [facility] 123 [facility] [address] [place] [phone] Sebastian Wasserman MD Torn earlobe, left, subsequent encounter (Primary Dx) 07/06/2018 1:45 PM EDT Consult (Initial) [facility] 123 [facility] [address] [place] [phone] Sebastian Wasserman MD Tracie escobar, left, initial encounter (Primary Dx) 06/04/2018 Orders Only [facility] [address] [place] [phone] Shreyas Orellana MD 06/04/[address] [address] Shreyas Orellana MD Ear Problem 10/10/2017 Refill [address] [place] [address] [place] [address] Shreyas Orellana MD E-prescribing Refill Request 07/07/[address] [address] Brie Woods RN Nausea 07/07/2017 9:45 AM EDT Radiology [address] [address] 07/07/2017 9:15 AM EDT Office Visit [address] [address] Lizy Burris NP Lower resp. tract infection (Primary Dx) 05/19/2017 Telephone [facility] [address] [place] [phone] Long Eden MD Cancellation 04/14/2017 9:40 AM EST Office Visit [place] [address] [place] [address] Shreyas Orellana MD Bacterial infection (Primary Dx) 04/14/2017 Telephone [place] [address] [place] [address] Shreyas Orellana MD Influenza; Eye Problem 01/21/2017 Refill July [address] [address] Melanie Dewey NP E-prescribing Refill Request 11/26/2016 Refill [address] [place] [address] [place] [address] Shreyas Orellana MD E-prescribing Refill Request 10/06/2016 Telephone [address] [place] [address] [place] [address] Shreyas Orellana MD Results 10/04/2016 Telephone [facility] Gastroenterology [address] [place] [address] Long Eden MD Endoscopy Request (lower And/or Upper) 10/04/2016 Orders Only [place] [address] [place] [address] [place] [address] Shreyas Orellana MD 10/04/2016 1:20 PM EDT CPE - Comprehensive Physical Exam [address] [place] [address] [place] [address] Shreyas Orellana MD Routine history and physical examination of adult (Primary Dx); Need for vaccination; Hypertension; Vitamin D Defiency; Insomnia, unspecified type; Osteoporosis, unspecified osteoporosis type, unspecified pathological fracture presence 09/27/2016 Letter/Form [place] [address] [place] [address] Shreyas Orellana MD 09/22/2016 Letter/Form [address] [place] [address] [place] [address] Shreyas Orellana MD 09/09/2016 Refill [address] [place] [address] [place] [address] Shreyas Orellana MD E-prescribing Refill Request 09/08/2016 Orders Only [place] [address] [place] [address] Shreyas Orellana MD 09/05/2016 Telephone [address] [place] [address] [place] [address] Shreyas Orellana MD Results (potassium, Vit D ) 08/30/2016 Orders Only [place] [address] [place] [address] [place] [address] Shreysa Orellana MD 08/18/2016 Orders Only [place] [address] [place] [address] [place] [address] Shreyas Orellana MD 08/10/2016 Refill July [facility] [place] [address] Shreyas Orellana MD E-prescribing Refill Request 05/12/2016 Refill [address] [place] [address] [place] [address] Alison Francis MD E-prescribing Refill Request 04/29/2016 10:15 AM EST Office Visit [facility] [address] [place] [phone] Dima Morton S, OD Encounter for ophthalmic examination and evaluation (Primary Dx); Cortical senile cataract, bilateral [H25.013]; Senile nuclear sclerosis, bilateral [H25.13]; Dermatochalasis of eyelids of both eyes [H02.833, H02.836]; Hypermetropia, bilateral [H52.03]; Astigmatism, regular, bilateral [H52.223]; Presbyopia 08/27/2015 11:15 AM EDT [facility] [address] [place] [phone] Malika Ventura, BETZAIDA Bladder infection (Primary Dx); Dysuria 07/13/2015 Orders Only July [address] [address] [place] [address] Alison Francis MD 07/08/2015 Orders Only July [address] [address] [place] [address] Alison Francis MD 07/08/2015 Telephone July [address] [address] [place] [address] Alison Francis MD Results (potassium) 07/07/2015 Orders Only July [address] [address] [place] [address] Alison Francis MD Medications 07/07/2015 11:20 AM EDT CPE - Comprehensive Physical Exam July [address] [address] [place] [address] Alison Francis MD Routine general medical examination at a health care facility (Primary Dx); Hypertension; Osteoporosis; Hyperlipidemia; LDL Goal < 130; Vitamin B12 deficiency; Chronic Renal Insufficiency 05/18/2015 9:15 AM EST Radiology [facility] X-Ray [address] [place] [phone] Right foot pain 05/18/2015 9:40 AM EST Consult (Initial) [facility] Podiatry [address] [place] [address] Gt Vega, DPEmy Other secondary osteoarthritis of right foot (Primary Dx); Pain of right foot; Difficulty walking 05/17/2015 Refill July [address] [address] [place] [address] Alison Francis MD E-prescribing Refill Request 05/13/2015 Orders Only July [address] [address] [place] [address] Alison Francis MD 05/13/2015 Orders Only July [address] [address] [place] [address] Alison Francis MD 05/12/2015 Orders Only July [address] [address] [place] [address] Alison Francis MD 05/11/2015 Telephone July [address] [address] [place] [address] Alison Francis MD Referral Request 02/24/2015 9:45 AM EST Office Visit [facility] [address] [place] [address] Sandi Santos NP Acute cystitis with hematuria (Primary Dx); Dysuria 02/24/2015 Telephone July [address] [address] [place] [address] Alison Francis MD UTI 12/16/2014 Orders Only July [address] [address] [place] [address] Alison Francis MD 12/15/2014 Orders Only July [address] [address] [place] [address] Alison Francis MD 12/15/2014 10:45 AM EDT Office Visit July [facility] [place] [address] Alison Francis MD Hypertension (Primary Dx); Hyperlipidemia; LDL Goal < 130; Vitamin B12 deficiency; Ds DNA antibody positive; Chronic Renal Insufficiency; Right foot pain 11/10/2014 11:30 AM EDT Radiology [facility] Mammography [address] [facility] [place] [address] Other screening mammogram 11/03/2014 10:30 AM EDT Office Visit [facility] Optometry [address] [place] [address] Dima Morton S, OD Encounter for ophthalmic examination and evaluation (Primary Dx); Senile nuclear sclerosis, bilateral [366.16]; Hypermetropia, bilateral [367.0]; Presbyopia 07/21/2014 Refill July [facility] [place] [address] Alison Francis MD E-prescribing Refill Request 06/11/2014 1:15 PM EDT CPE - Comprehensive Physical Exam [address] [address] [place] [address] Alison Francis MD Routine general medical examination at a health care facility (Primary Dx); Chronic kidney disease, unspecified; Hypertension; Osteoporosis; Vitamin D Defiency; Hyperlipidemia; LDL Goal < 130; Back pain; Chronic Renal Insufficiency; Ds DNA antibody positive; Vitamin B12 deficiency 05/04/2014 Refill July [facility] [place] [address] Alison Francis MD E-prescribing Refill Request 03/30/2014 Refill July [address] [address] [place] [address] Alison Francis MD E-prescribing Refill Request 03/24/2014 Letter/Form July [address] [address] [place] [address] Alison Francis MD 11/11/2013 Telephone July Internal [address] [address] [place] [address] Alison Francis MD Referral Request 09/16/2013 Refill July [address] [address] Alison Francis MD E-prescribing Refill Request 09/06/2013 Telephone July [address] [address] Alison Francis MD Referral Request 08/28/2013 Orders Only July Internal [address] [address] Alison Francis MD 08/28/2013 11:45 AM EDT Radiology July X-Ray [facility] [place] [address] 08/28/2013 11:15 AM EDT Office Visit [address] [address] Alison Francis MD Right foot pain (Primary Dx) 08/28/2013 Telephone July [address] [address] [place] [address] Alison Francis MD Swelling 03/12/2013 1:30 PM EST Office Visit [address] [address] Andie Hinkle MD Foot pain (Primary Dx) 03/12/2013 Telephone July [address] [address] [place] [address] Alison Francis MD Swelling 03/08/2013 Refill July [address] [address] Alison Francis MD E-prescribing Refill Request 02/28/2013 Telephone July [address] [address] [place] [address] Alison Francis MD UTI 02/21/[address] [address] Alison Francis MD Cancellation 01/16/2013 Minor Procedure/Test NON [facility] [address] [place] [address] Ricco Viramontes DPM 12/17/2012 Telephone July Internal [facility] [address] [place] [address] Alison Francis MD Information 12/11/2012 Telephone July [address] [address] [place] [address] Alison Francis MD Edema 12/11/2012 Telephone [facility] Rheumatology [address] [place] [address] Chalino Diaz MD Results 12/10/2012 Orders Only [facility] Rheumatology [address] [place] [address] Chalino Diaz MD 12/10/2012 1:00 PM EDT Consult (Initial) [facility] Rheumatology [address] [place] [address] Chalino Diaz MD Ds DNA antibody positive (Primary Dx) 12/05/2012 Orders Only [facility] Cardiology [address] [facility] [address] [place] [address] Romana Simons Tech 12/04/2012 Orders Only July Internal [address] [address] Alison Francis MD 12/04/2012 1:30 PM EDT Office Visit July [address] [address] [place] [address] Alison Francis MD Arthralgia (Primary Dx); Hypertension; Hyperlipidemia; LDL Goal < 130; Vitamin B12 deficiency; CHRONIC RENAL INSUFFICIENCY xx0.39xx 12/04/2012 Telephone July Internal [facility] [place] [address] Alison Francis MD Foot Pain 12/03/2012 Telephone July [address] [address] [place] [address] Alison Francis MD Return Call (URGENT) 11/29/2012 Orders Only NON [facility] [address] [place] [address] Ricco Viramontes DPM 09/12/2012 Refill July Internal [facility] [address] [place] [address] Shreyas Orellana MD E-prescribing Refill Request 08/23/2012 Telephone July [address] [address] Alison Francis MD Referral Request 08/10/2012 Refill July Internal [address] [address] [place] [address] Alison Francis MD E-prescribing Refill Request (Hydrochlorothiazide) 07/26/2012 Telephone July [address] [address] Alison Francis MD Referral Request 03/30/2012 Letter/Form INTERNAL MED UNSPEC 02/01/2012 Refill July Internal [address] [address] Alison Francis MD E-prescribing Refill Request (hydrochlorothiazide) 01/12/2012 Minor Procedure/Test PODIATRY UNSPECIFIED 12/28/2011 10:30 AM EDT Radiology [facility]. Mammography [address] [place] [address] Other screening mammogram 11/15/2011 Orders Only FC MISCELLANEOUS [phone] Alison Francis MD 11/03/2011 Minor Procedure/Test PODIATRY UNSPECIFIED Dermatophytosis of nail; Pain in limb 09/01/2011 Telephone July [address] [address] Alison Francis MD ER F/U (head injury) 08/29/[address] [facility] [address] [place] [address] [facility], Emergency Rm Provider Dizziness and giddiness; Fall from slipping on wet surface 08/29/2011 Orders Only NON [facility] [address] [place] [address] [facility], Unknown Provider 08/29/2011 Orders Only NON [facility] [address] [place] [address] Yobani Samaniego 08/29/2011 Telephone July [address] [address] [place] [address] Alison Francis MD Results 08/29/2011 Telephone July [address] [address] Alison Francis MD Dizziness 08/26/2011 Orders Only July [address] [address] Alison Francis MD 08/26/2011 3:45 PM EDT Office Visit [address] [address] Alison Francis MD CHRONIC RENAL INSUFFICIENCY xx0.39xx (Primary Dx); Hematoma; Acute neck pain 08/26/2011 Telephone July [address] [address] Alison Francis MD Walk In 08/22/2011 Orders Only July [address] [address] Alison Francis MD 08/22/2011 Orders Only July [address] [address] Alison Francis MD 08/22/2011 9:00 AM EDT Office Visit [address] [address] Alison Francis MD UTI (urinary tract infection), uncomplicated (Primary Dx) 08/22/2011 Telephone July [address] [address] Alison Francis MD UTI 07/20/2011 Telephone July [address] [address] Alison Francis MD Walk In (medication issues) 07/19/2011 Telephone July [address] [address] Alison Francis MD Information 07/19/2011 1:30 PM EDT Office Visit July [address] [address] Alison Francis MD Hypertension (Primary Dx); Osteoporosis; Vitamin D Defiency; Hyperlipidemia; LDL Goal < 130; Back pain; Vitamin B12 deficiency 07/19/2011 Refill [address] [address] [place] [address] Alison Francis MD Medication Problem (lisinopril) 05/27/2011 Telephone July [address] [address] [place] [address] Alison Francis MD Medication Problem (cost of BP med) 05/26/2011 Orders Only July [address] [address] [place] [address] Alison Francis MD 05/26/2011 10:30 AM EST Nurse Visit July [address] [address] [place] [address] Estefani Escobar LPN Cobalamin deficiency (Primary Dx); Elevated blood pressure 05/10/2011 Refill July [address] [address] [place] [address] Alison Francis MD E-prescribing Refill Request 05/09/2011 Letter/Form July [address] [address] [place] [address] Alison Francis MD 04/20/2011 Letter/Form July [address] [address] [place] [address] Alison Francis MD 04/12/2011 Telephone July [address] [address] [place] [address] Alison Francis MD Medication Problem ; Information 04/08/2011 Telephone July [address] [address] [place] [address] Alison Francis MD Patient Questions ; Information 03/28/2011 Minor Procedure/Test PODIATRY UNSPECIFIED Dermatophytosis of nail; Pain in limb 03/09/2011 Refill July [address] [address] [place] [address] Alison Francis MD Refill Request (diovan) 03/09/2011 Refill July [address] [address] [place] [address] Alison Francis MD E-prescribing Refill Request 02/24/2011 10:00 AM EST CPE - Comprehensive Physical Exam July [address] [address] [place] [address] Alison Francis MD Routine history and physical examination of adult (Primary Dx); Hypertension; Osteoporosis; Vitamin D Defiency; Hyperlipidemia; LDL Goal < 130; Vitamin B12 deficiency 01/04/2011 Minor Procedure/Test PODIATRY UNSPECIFIED Bursitis disorder; Lesion of plantar nerve 11/01/2010 Orders Only July [address] [address] [place] [address] Alison Francis MD 11/01/2010 Refill July [address] [address] [place] [address] Alison Francis MD Medication Problem (vitamin b 12 injection) 10/21/2010 10:30 AM EDT Consult (Initial) [facility] Rheumatology [address] [place] [address] Robert Fernandez MD Osteoporosis (Primary Dx) 09/28/2010 Office Visit PODIATRY UNSPECIFIED Acquired deformity of ankle and foot; Hallux valgus; Dermatophytosis of nail 08/26/2010 11:30 AM EDT Office Visit [address] [address] [place] [address] Alison Francis MD Hypertension (Primary Dx); Vitamin D Defiency; Osteoporosis; Back pain; Hyperlipidemia; LDL Goal < 130; Vitamin B12 deficiency 08/19/2010 10:30 AM EDT Nurse Visit [address] [address] [place] [address] Estefani Escobar LPN Vitamin B12 deficiency (Primary Dx) 07/15/2010 Office Visit PODIATRY UNSPECIFIED Acquired deformity of ankle and foot; Hallux valgus; Dermatophytosis of nail 06/10/2010 Telephone July [address] [address] [place] [address] Alison Francis MD Referral Request 05/20/2010 10:00 AM EST Nurse Visit July [facility] [place] [address] Mahin Rodríguez RN Vitamin B12 deficiency (Primary Dx) 04/22/2010 1:00 PM EST Radiology [facility] Mammography [address] [place] [address] Mammographic microcalcification; Other screening mammogram 04/05/2010 11:15 AM EST Office Visit [facility] Optometry [address] [place] [address] Dima Morton S, OD Macular puckering of retina (Primary Dx); Senile nuclear cataract 03/23/2010 Refill July [facility] [place] [address] Alison Francis MD E-prescribing Refill Request 03/20/2010 Refill July [facility] [place] [address] Alison Francis MD E-prescribing Refill Request (diovan) 02/25/2010 10:30 AM EST CPE - Comprehensive Physical Exam July [facility] [place] [address] Alison Francis MD Routine general medical examination at a health care facility (Primary Dx); Hypertension; Osteoporosis; Vitamin D Defiency; Hyperlipidemia; LDL Goal < 130; Back pain; Idiopathic peripheral neuropathy (HCC); Need for prophylactic vaccination and inoculation against influenza; Mammographic microcalcification 02/15/2010 Orders Only LAB UNSPECIFIED 02/15/2010 Orders Only July [facility] [place] [address] Alison Francis MD 02/01/2010 Orders Only July [facility] [place] [address] Alison Francis MD 01/25/2010 Refill July [facility] [place] [address] Alison Francis MD E-prescribing Refill Request (DIOVAN HCT) 10/16/2009 Refill July [address] [address] [place] [address] Alison Francis MD Refill Request 07/14/2009 Refill July [address] [address] [place] [address] Deloris Longoria MA Refill Request 07/07/2009 Letter/Form July [address] [address] [place] [address] Alison Francis MD 03/30/2009 10:30 AM EST Office Visit [facility] Optometry [address] [place] [address] BrololiskyDima S, OD Macular puckering of retina; Nuclear cataract, nonsenile 03/26/2009 Telephone July [address] [address] [place] [address] Alison Francis MD Appointment (3 mo ret) 02/23/2009 Orders Only July [address] [address] [place] [address] Alison Francis MD 02/23/2009 1:15 PM EST Office Visit July [address] [address] [place] [address] Alison Francis MD Hypertension (Primary Dx); Vitamin D Defiency; Hyperlipidemia; LDL Goal < 130; Osteoporosis; Restless Leg Syndrome; Back Pain 02/18/2009 Telephone July [address] [address] [place] [address] Alison Francis MD No Show 02/17/2009 Orders Only July [address] [address] [place] [address] Alison Francis MD 11/18/2008 10:15 AM EDT Office Visit July [address] [address] [place] [address] Alison Francis MD Hypertension (Primary Dx); Myalgia and Myositis; Hyperlipidemia; LDL Goal < 130; Back Pain 10/14/2008 Refill July [address] [address] [place] [address] Deloris Longoria MA Refill Request (diovan) 09/15/2008 Telephone July [address] [address] [place] [address] Alison Francis MD Letter/form Request 09/15/2008 3:30 PM EDT Office Visit [address] [address] [place] [address] Alison Francis MD Anxiety, Stress, and Tension (Primary Dx) 09/12/2008 Orders Only July [address] [address] [place] [address] Alison Francis MD 09/12/2008 Telephone July [address] [address] [place] [address] Estefani Escobar LPN Appointment 09/12/2008 Telephone [address] [address] [place] [address] Estefani Escobar LPN Results (digital Mammogram 08/29/08) 09/11/2008 9:00 AM EDT Office Visit [facility] Podiatry [address] [place] [address] Paco Uribe DPM Onychomycosis; Pain in Limb; Other Symptoms Referable to [facility]le [facility] Foot [facility]; Other Synovitis and Tenosynovitis 08/28/2008 Orders Only [address] [address] [place] [address] Alison Francis MD 08/15/2008 Telephone July [address] [address] [place] [address] Estefani Escobar LPN Medication Problem (Requip); Information 08/15/2008 Orders Only July [address] [address] [place] [address] Alison Francis MD 08/15/2008 9:30 AM EDT CPE - Comprehensive Physical Exam July [address] [address] [place] [address] Alison Francis MD Routine General Medical Examination at a Health Care Facility (Primary Dx); Breast Cancer Screening; Vitamin D Defiency; Hyperlipidemia; LDL Goal < 130; Hypertension; Osteoporosis; Back Pain; Leg Cramps 07/31/2008 9:15 AM EDT Consult (Initial) [facility] Podiatry [address] [facility] [place] [address] Paco Uribe DPM Other Synovitis and Tenosynovitis (Primary Dx) 07/03/2008 Orders Only [facility] [address] [facility] [place] [address] Paco Uribe DPM 07/03/2008 9:00 AM EDT Consult (Initial) [facility] [address] [facility] [place] [address] Paco Uribe DPM Onychomycosis; Pain in Limb; Other Synovitis and Tenosynovitis 04/11/2008 Refill May [address] [address] [place] [address] Jill Shrestha MA Refill Request (hctz) 04/04/2008 Orders Only July [address] [address] [place] [address] Alison Francis MD 04/04/2008 Refill July [address] [address] [place] [address] Maria C Roa MA Erroneous encounter-disregard 04/04/2008 10:45 AM EST Office Visit July [address] [address] [place] [address] Alison Francis MD Hypertension (Primary Dx); Fungal Dermatitis 12/27/2007 11:15 AM EDT Office Visit July [address] [address] [place] [address] Alison Francis MD Hypertension (Primary Dx) 11/27/2007 9:15 AM EDT Office Visit July [address] [address] [place] [address] Alison Francis MD Hypertension (Primary Dx); Back Pain; Hyperlipidemia; LDL Goal < 130; Malaise and Fatigue 10/24/2007 Consult (Initial) [address] [address] [facility], Unknown Provider 08/31/2007 Nurse Visit [address] [address] Displacement of Lumbar Intervertebral Disc without Myelopathy 08/31/2007 Consult (Initial) [address] [address] [facility], Unknown Provider 08/24/2007 Orders Only May Internal Medicine [address] [place] [address] Alison Francis MD 08/07/2007 Abstract [facility] [address] [place] [address] Alison Francis MD 07/31/2007 8:30 AM EDT CPE - Comprehensive Physical Exam July Internal [facility] [address] [place] [address] Alison Francis MD ROUTINE GENERAL MEDICAL EXAMINATION AT A HEALTH CARE FACILITY (Primary Dx); Hypertension; Hyperlipidemia; LDL Goal < 130; Vitamin D Defiency; BACK PAIN; Osteoporosis; BREAST CANCER SCREENING; INSOMNIA NEC; IMPACTED CERUMEN 07/20/2007 Consult (Initial) [address] [place] [address], Unknown Provider 07/06/2007 Telephone [facility] Internal Medicine [address] [place] [address] Angie Pepe RN VNA Communication 07/03/2007 Telephone [facility] Internal [facility] [address] [place] [address] Estefani Escobar LPN Patient Questions 06/25/2007 Telephone [facility] Internal Medicine [address] [place] [address] Regan Darling MD FYI (patient admitted / surgery done) 06/25/2007 Telephone [facility] Internal Medicine [address] [place] [address] Regan Darling MD Other 06/23/2007 Orders Only LAB UNSPECIFIED 06/23/2007 Minor Procedure/Test [id number] [place] [address], Unknown Provider 06/22/2007 Surgery/Major Procedure [facility] [address] [place] [address] Displacement of Lumbar Intervertebral Disc without Myelopathy 06/22/2007 Hospital/Inpatient [facility] [address], Unknown Provider 06/22/2007 Surgery/Major Procedure [facility] [address], Unknown Provider 06/22/2007 Consult (Initial) [facility] [address], Unknown Provider 06/18/2007 Telephone [facility] Internal Medicine [address] [place] [address] Angie Pepe, DOUG Appointment 06/14/2007 Telephone [facility] Internal Medicine [address] [place] [address] Patricia Donald RN Other (/ ms contin dose ) 06/12/2007 Orders Only [facility] Internal Medicine [address] [place] [address] Regan Darling MD 06/11/2007 Minor Procedure/Test REHABILITATION UNSPEC Nonallopathic Lesion of Lumbar Region; Lumbosacral Neuritis; Congenital Spondylolysis, Lumbosacral Region 06/11/2007 Telephone [facility] Internal [facility] [address] [place] [address] Terri Nur RN Results 06/08/2007 Orders Only [facility] Internal Medicine [address] [place] [address] Regan Darling MD 06/08/2007 9:45 AM EDT Office Visit [facility] Internal [address] [address] Regan Darling MD SCIATICA (Primary Dx); DEHYDRATION; FATIGUE; NAUSEA; ACUTE KIDNEY INSUFFICIENCY 06/07/2007 Refill [facility] Internal Medicine [address] [place] [address] Angie Pepe, early head start director Problem 06/07/2007 Refill [facility] Internal Medicine [address] [place] [address] Angie Pepe, DOUG Refill Request 06/06/2007 Letter/Form 300 [facility] Magnetic Resonance Imaging [address] [place] [address] 06/06/2007 Orders Only [facility] Internal Medicine [address] [place] [address] Regan Darling MD 06/05/2007 Letter/Form NON FC SA NON FC UNK Provider, Unknown 06/04/2007 Minor Procedure/Test REHABILITATION UNSPEC Nonallopathic Lesion of Lumbar Region; Lumbosacral Neuritis; Congenital Spondylolysis, Lumbosacral Region 06/01/2007 Refill [facility] Internal Medicine [address] [place] [address] Terri Nur RN Refill Request 05/30/2007 Minor Procedure/Test REHABILITATION UNSPEC Nonallopathic Lesion of Lumbar Region; Lumbosacral Neuritis; Congenital Spondylolysis, Lumbosacral Region 05/28/2007 Minor Procedure/Test REHABILITATION UNSPEC Nonallopathic Lesion of Lumbar Region; Lumbosacral Neuritis; Congenital Spondylolysis, Lumbosacral Region 05/25/2007 1:00 PM EST Office Visit [facility] Internal Medicine [address] [place] [address] Regan Darling MD Sciatica (Primary Dx) 05/23/2007 Minor Procedure/Test REHABILITATION UNSPEC Nonallopathic Lesion of Lumbar Region; Lumbosacral Neuritis; Congenital Spondylolysis, Lumbosacral Region 05/23/2007 Telephone [facility] Internal Medicine [address] [place] [address] Regan Darling MD Other 05/21/2007 Minor Procedure/Test REHABILITATION UNSPEC Nonallopathic Lesion of Lumbar Region; Lumbosacral Neuritis; Congenital Spondylolysis, Lumbosacral Region 05/18/2007 Minor Procedure/Test REHABILITATION UNSPEC Nonallopathic Lesion of Lumbar Region; Lumbosacral Neuritis; Congenital Spondylolysis, Lumbosacral Region 05/17/2007 Telephone [facility] Internal Medicine [address] [place] [address] Terri Nur, DOUG Back Pain 05/15/2007 Minor Procedure/Test REHABILITATION UNSPEC Nonallopathic Lesion of Lumbar Region; Lumbosacral Neuritis; Congenital Spondylolysis, Lumbosacral Region 05/15/2007 Telephone [facility] Internal Medicine [address] [place] [address] Regan Darling MD Referral Request 05/14/2007 Office Visit REHABILITATION UNSPEC Nonallopathic Lesion of Lumbar Region; Lumbosacral Neuritis; Congenital Spondylolysis, Lumbosacral Region 05/08/2007 9:45 AM EST Office Visit [facility] Internal [address] [address] Regan Darling MD Hypertension (Primary Dx); Sciatica; Vitamin D Defiency; Osteoporosis; Hyperlipidemia; LDL Goal < 130; Hyperlipidemia 04/27/2007 Abstract [facility] [address] [place] [address] Regan Darling MD 04/09/2007 Orders Only [facility] Internal [address] [address] Regan Darling MD 04/05/2007 10:00 AM EST CPE - Comprehensive Physical Exam [address] [address] Regan Darling MD ROUTINE GENERAL MEDICAL EXAMINATION AT A HEALTH CARE FACILITY (Primary Dx); BREAST CANCER SCREENING; Hypertension; Osteoporosis; SCREENING FOR OTHER AND UNSPECIFIED DEFICIENCY ANEMIA; SCREENING FOR LIPOID DISORDERS; SCREEN-ENDOC/NUT/MET NEC 02/12/2007 Refill [facility] [address] [place] [phone] Regan Darling MD Refill Request 12/15/2006 Refill [facility] [address] [place] [phone] Angie Pepe, DOUG Refill Request 12/04/2006 Office Visit [facility] [address] [place] [address] Jese Kessler, OD Examination of Eyes and Vision; Hypermetropia; Presbyopia; Refraction Disorder; Senile Nuclear Sclerosis 04/07/2006 Minor Procedure/Test Special Screening fo r Malignant Neoplasms, Colon 04/07/2006 Minor Procedure/Test [facility] [address] [address] Eleonora Taylor MD Special Screening for Malignant Neoplasms, Colon 11/28/2005 Office Visit [facility] [address] [place] [address] Regan Darling MD Hypertension; Cough 11/28/2005 Telephone [facility] [address] [place] [address] Loni Machado LPN Cough 11/02/2005 Office Visit [facility] [address] [place] [address] Corrie Kuo MD Hypertension 09/26/2005 Telephone [facility] [address] [place] [address] Regan Darling MD 09/26/2005 Office Visit [facility] [address] [place] [address] Corrie Kuo MD Hypertension; Elevated blood pressure reading without diagnosis of hypertension 09/26/2005 11:00 AM EDT Orders Only [facility] [address] [place] [address] Corrie Kuo MD 09/26/2005 Orders Only [facility] [address] [place] [address] Regan Darling MD 09/26/2005 Orders Only [facility] [address] [place] [phone] Regan Darling MD 08/26/2005 Office Visit [facility] [address] [place] [address] Regan Darling MD Hypertension; Insomnia NEC; Osteoporosis; Backache 08/09/2005 Letter/Form [facility] [address] [place] [address] Regan Darling MD 08/08/2005 Telephone [facility] [address] [place] [phone] Regan Darling MD 08/03/2005 Minor Procedure/Test REHABILITATION UNSPEC Closed Dislocation, Lumbar Vertebra; Degeneration of Lumbar or Lumbosacral Intervertebral Disc; Closed Dislocation, First Cervical Vertebra 07/27/2005 Minor Procedure/Test REHABILITATION UNSPEC Closed Dislocation, Lumbar Vertebra; Degeneration of Lumbar or Lumbosacral Intervertebral Disc; Closed Dislocation, First Cervical Vertebra 07/20/2005 Minor Procedure/Test REHABILITATION UNSPEC Closed Dislocation, Lumbar Vertebra; Degeneration of Lumbar or Lumbosacral Intervertebral Disc; Closed Dislocation, First Cervical Vertebra 07/13/2005 Minor Procedure/Test REHABILITATION UNSPEC Closed Dislocation, Lumbar Vertebra; Degeneration of Lumbar or Lumbosacral Intervertebral Disc; Closed Dislocation, First Cervical Vertebra 07/08/2005 Minor Procedure/Test REHABILITATION UNSPEC Closed Dislocation, Lumbar Vertebra; Degeneration of Lumbar or Lumbosacral Intervertebral Disc; Closed Dislocation, First Cervical Vertebra 06/29/2005 Minor Procedure/Test REHABILITATION UNSPEC Closed Dislocation, Lumbar Vertebra; Degeneration of Lumbar or Lumbosacral Intervertebral Disc; Closed Dislocation, First Cervical Vertebra 06/27/2005 Minor Procedure/Test REHABILITATION UNSPEC Closed Dislocation, Lumbar Vertebra; Degeneration of Lumbar or Lumbosacral Intervertebral Disc; Closed Dislocation, First Cervical Vertebra 06/24/2005 Minor Procedure/Test REHABILITATION UNSPEC Closed Dislocation, Lumbar Vertebra; Degeneration of Lumbar or Lumbosacral Intervertebral Disc; Closed Dislocation, First Cervical Vertebra 06/23/2005 Office Visit [facility] [address] [place] [address] Regan Darling MD Hypertension; Osteoporosis 06/22/2005 Minor Procedure/Test REHABILITATION UNSPEC Closed Dislocation, Lumbar Vertebra; Degeneration of Lumbar or Lumbosacral Intervertebral Disc; Closed Dislocation, First Cervical Vertebra 06/20/2005 Minor Procedure/Test REHABILITATION UNSPEC Closed Dislocation, Lumbar Vertebra; Degeneration of Lumbar or Lumbosacral Intervertebral Disc; Closed Dislocation, First Cervical Vertebra 06/17/2005 Minor Procedure/Test REHABILITATION UNSPEC Closed Dislocation, Lumbar Vertebra; Degeneration of Lumbar or Lumbosacral Intervertebral Disc; Closed Dislocation, First Cervical Vertebra 06/17/2005 Orders Only [facility] [address] [place] [address] Regan Darling MD 2005 Minor Procedure/Test REHABILITATION UNSPEC Closed Dislocation, Lumbar Vertebra; Degeneration of Lumbar or Lumbosacral Intervertebral Disc; Closed Dislocation, First Cervical Vertebra 06/13/2005 Minor Procedure/Test REHABILITATION UNSPEC Closed Dislocation, Lumbar Vertebra; Degeneration of Lumbar or Lumbosacral Intervertebral Disc; Closed Dislocation, First Cervical Vertebra 06/10/2005 Minor Procedure/Test REHABILITATION UNSPEC Closed Dislocation, Lumbar Vertebra; Degeneration of Lumbar or Lumbosacral Intervertebral Disc; Closed Dislocation, First Cervical Vertebra 06/08/2005 Minor Procedure/Test REHABILITATION UNSPEC Closed Dislocation, Lumbar Vertebra; Degeneration of Lumbar or Lumbosacral Intervertebral Disc; Closed Dislocation, First Cervical Vertebra 06/07/2005 CPE - Comprehensive Physical Exam [facility] [address] [place] [address] Regan Darling MD Routine General Medical Examination at a Health Care Facility; Need for Prophylactic Vaccination with Tetanus-Diphtheria (TD); NEED FOR PROPHYLACTIC VACCINATION AND INOCULATION AGAINST DISEASE; Unspecified Menopausal and Postmenopausal Disorder 06/06/2005 Minor Procedure/Test REHABILITATION UNSPEC Closed Dislocation, Lumbar Vertebra; Degeneration of Lumbar or Lumbosacral Intervertebral Disc; Closed Dislocation, First Cervical Vertebra 06/03/2005 Office Visit REHABILITATION UNSPEC Closed Dislocation, Lumbar Vertebra; Degeneration of Lumbar or Lumbosacral Intervertebral Disc; Closed Dislocation, First Cervical Vertebra 06/03/2005 Orders Only Regan Reynolds [facility] 10/25/2004 Office Visit [facility] [address] [place] [address] Jese Kessler, EULALIA Examination of eyes and vision; Refraction disorder 06/07/2002 Telephone [facility] [address] [place] [address] Chalino Lino MD 02/06/2002 Office Visit [facility] [address] [place] [address] Robert Ferreira, OD Examination of eyes and vision; Refraction disorder; Cataract 04/11/2001 Telephone [facility] [address] [place] [phone] Chalino Lino MD 12/03/1999 Telephone [facility] [address] [place] [address] Chalino Lino MD 12/03/1999 Office Visit [facility] [address] [place] [phone] Long Smith MD Acute pharyngitis; Acute upper respiratory infection 12/01/1999 Telephone [facility] [address] [place] [address] Chalino Lino MD 10/15/1999 Office Visit [facility] [address] [place] [phone] Robert Ferreira, OD 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 Orders Only [facility] [address] [place] [address] Chalino Lino MD 04/02/1999 Office Visit [facility] [address] [phone] Chalino Lino MD Pneumonia due to organism; Pneumonia, organism unspecified(486) 03/16/1999 Office Visit [facility] [address] [address] Chalino Lino MD Bronchitis; Cough 02/22/1999 Orders Only NON [facility] [address] [address] Sv, Unknown Provider 09/08/1998 Orders Only [facility] [address] [place] [address] Chalino Lino MD 08/27/1998 Orders Only [facility] 07/01/1998 CPE - Comprehensive Physical Exam [facility] [address] [place] [address] Chalino Lino MD Routine general medical examination at a health care facility 05/02/1994 Office Visit NON [facility] NON [facility] Alicja Ruiz Refraction disorder 04/18/1994 Office Visit [facility] [address] [place] [phone] Robert Andre MD Dyschromia 09/29/1993 Orders Only [facility] [address] [place] [phone] Chalino Lino MD 07/28/1993 Office Visit [facility] [address] [place] [phone] Chalino Lino MD Symptoms involving abdomen and pelvis 07/02/1993 Office Visit [facility] [address] [place] [phone] Chalino Lino MD Symptoms involving abdomen and pelvis 07/01/1993 Office Visit [facility] [address] [place] [address] Ameena Little PA Symptoms involving abdomen and pelvis 07/11/1990 Orders Only [facility] UNSPECIFIED Jt Wallis MD Allergies Active Allergy Reactions Criticality Noted Date Comments Lisinopril Cough 07/19/2011 Codeine 12/10/2012 Medications Ibuprofen (ADVIL) 200 MG Tab 1 TABLET 3 TIMES DAILY Active Vitamin B-12 (VITAMIN B-12) 50 MCG tablet Take one tablet (50 mcg total) by mouth 1 (one) time each day 30 tablet 11 07/14/19 21 Active Polyethyl Glycol-Propyl Glycol (Systane) 0.4-0.3 % Solution Administer one drop to two drops into both eyes 4 (four) times a day each eye 10 mL 5 12/14/19 22 Active Nystatin (MYCOSTATIN) powder APPLY TO AFFECTED AREA TWICE A DAY 60 g 11 09/23/19 23 Active FLUTICASONE PROPIONATE, NASAL, (FLONASE) 50 MCG/ACT nasal spray SPRAY 1 SPRAY INTO EACH NOSTRIL 1 TIME EACH DAY 3 each 3 04/11/19 24 Active Verapamil HCl (CALAN) 80 MG tablet Take one tablet (80 mg total) by mouth 2 (two) times a day. 180 tablet 3 07/31/19 24 Active Pramipexole Dihydrochloride (MIRAPEX) 0.25 MG Tablet Take one tablet (0.25 mg total) by mouth every night. 90 tablet 3 08/23/19 24 025 Active Cholecalciferol (VITAMIN D-3) 50 MCG (2000 UT) capsule Take one capsule (2,000 Units total) by mouth 1 (one) time each day. 90 capsule 3 10/25/19 24 Active DONEPEZIL HYDROCHLORIDE (ARICEPT) 5 MG tabletIndications:M ild cognitive impairment Take one tablet (5 mg total) by mouth every night. 90 each 3 12/07/19 24 025 Active Cetirizine HCl (ZyrTEC) 10 MG tablet TAKE ONE HALF TABLET (5 MG TOTAL) BY MOUTH 1 (ONE) TIME EACH DAY. 45 tablet 3 03/07/20 24 026 Active Polyethylene Glycol 3350 (MiraLax) 17 GM/SCOOP powder Take seventeen g by mouth 1 (one) time each day MIXED INTO 8 OUNCES FLUID EACH DAY. 527 g 2 03/11/20 24 025 Active Calcium Carb-Cholecalcifero l (CALCIUM 600 + D) 600-10 MG-MCG Tab Take 1 tablet by mouth 2 (two) times a day. 60 tablet 11 03/11/20 24 Active Losartan Potassium (COZAAR) 50 MG tablet Take one tablet (50 mg total) by mouth 1 (one) time each day. 90 tablet 3 03/11/20 24 026 Active Calcitonin, [place], (MIACALCIN) 200 UNIT/ACT nasal spray Administer one spray into one nostril 1 (one) time each day. 3.7 mL 12 03/14/20 24 026 Active oxyCODONE HCl (ROXICODONE) 5 MG immediate release tablet Take one half tablet (2.5 mg total) by mouth 2 (two) times a day if needed for severe pain. 30 tablet 03/26/19 25 Active Diclofenac Sodium 1 % Gel APPLY 2 G TOPICALLY 2 (TWO) TIMES A DAY IF NEEDED FOR PAIN TO AFFECTED AREA. 100 g 4 04/16/19 25 025 Active QUEtiapine Fumarate (SEROquel) 25 MG tablet Take one tablet (25 mg total) by mouth every night. 90 tablet 04/12/19 25 Active QUEtiapine Fumarate (SEROquel) 25 MG tablet take 1 tablet by mouth every day at night 90 tablet 11/29/19 24 025 Discontin ued(Reord er (No Cancel Rx)) Diclofenac Sodium 1 % Gel Apply 2 g topically 2 (two) times a day if needed for pain To affected area. 50 g 03/26/19 25 025 Discontin ued(Reord er (No Cancel Rx)) Active Problems Problem Noted Date Diagnosed Date Closed fracture of sacrum with routine healing 1 05/12/2023 Overview (03/11/2024): Present. Pt in pain. Able to ambulate. Taking apap per label directions. May use 1/2 tab/2.5 mg of oxycodone q 8 hours as needed for severe pain. Advised to use less than daily if needed. S/e of sedation, constipation, dryness, confusion, and fall risk potential reviewed at length with patient and daughter. Continue Vit d. Start Calcium daily. Follow-up with Ortho on . Start miralax. See constipation. Slow transit constipation 03/11/2024 Overview (03/11/2024): Present. BM day before yesterday. Sl strain. Start miralax Take seventeen g by mouth 1 (one) time each day MIXED INTO 8 OUNCES FLUID EACH DAY. X 1 week Then decrease to 1/2 cap daily. Continue proper hydration. Bright red blood per rectum 03/11/2024 Overview (03/11/2024): Improved. X2 episodes. Pt evaluated for this by DH and ER. No further bleeding. Pt or dtr will call me with any repeat bleeding. Likely related to gastritis from NSAID use. Medication management 10/25/2023 Overview (10/25/2023): Present. Medication education done today with pt regarding need for use and pot s/e of all her medications. Pt thankful. Restless leg 08/23/2023 Overview (08/23/2023): Ongoing. Pt has to get up at HS 3-4x/noc to walk around. Remote H/o requip, gabapentin, and lyrica use. Pt does not recall using these meds so subsequently is unsure if effect or why she stopped. Orders Placed This Encounter Pramipexole Dihydrochloride (MIRAPEX) 0.25 MG Tablet Seasonal allergic rhinitis due to pollen 023 Overview (10/25/2023): Stable. Continue fluticasone nasal spray and cetirizine. Primary insomnia 11/01/2022 Overview (10/25/2023): Stable. Continue Seroquel. Patient denies any daytime lingering sedation, falls, or worsening of confusion. H/o melatonin and trazodone. Again reminded of below plan of care: No liquids 2 hours before bed. Lie in bed for 20 minutes before sleep. Then get up to urinate before attempting sleep. - Sleep only as much as you need to feel rested and then get out of bed - Keep a regular sleep schedule *Do not take a nap during the day. *Set an alarm clock to wake up at a fixed time each morning, including weekends. - Avoid forcing sleep - Exercise regularly for at least 20 minutes, preferably 4 to 5 hours before bedtime - Avoid caffeinated beverages after lunch - Avoid alcohol near bedtime *NO nightcap - Do not go to bed hungry, but avoid heavy, spicy meals - Adjust bedroom environment *Keep room dark, quiet and cool *Try white noise devices, soothing meditation music, sounds - Avoid prolonged use of light-emitting screens before bedtime *NO TV, Phone, computer at night - Deal with your worries before bedtime Keep room dark with comfortable temperature. Keep bedtime at the same time each night. Take a bath to calm herself before getting to bed. Do not eat heavy meals before bedtime and reduce fluid intake 2 hours before bed. Advised to avoid napping. Don't watch TV, read, eat, or worry while in bed. Use bed only for sleep and sex. If getting out of bed to read use caution with using bright or white lights. Keep room dark with comfortable temperature. Lie in bed for 15 minutes before going to sleep, get up to urinate, then go back to bed to avoid some nocturia. Bilateral impacted cerumen 07/19/2022 Overview (05/17/2023): Cerumen impaction perez canal(s) Cerumen removed from bilateral ear with lighted curette and forceps without adverse effect; pt reports immediate relief of symptoms; no use of QTips; allow water to go into ears with bathing. Mood disorder 03/22/2022 Overview (05/17/2023): Stable. Positive reinforcement for socializing with family. Pt walks the dog in good weather. Mood much improved since moving to her daughter's house. Situational mixed anxiety and depressive disorde r 10/06/2021 Overview (10/25/2023): Improved. Socializing with family and friends. Living with her dtr has been helpful. Candidiasis 07/21/2021 Overview (07/19/2022): Stable. If needed restart Nystatin power 2-3x/day after cleansing and drying carefully, but throughly. Try to get air to the area as often as possible. Put a hand towel between skin folds to wick away moisture and prevent skin on skin contact. Frail elderly 07/25/2020 Overview (07/25/2020): Clinical Status of patient: Functional Status of patient: Frail Elders (fatigue, weight loss, frequent infections, worsening balance, confusion) and Living Vitally Does this patient live at their home or a residential facility? Home What is the [facility] Care Model you recommend for them? Home visits only What level of care do they recommend for this patient? Medium Intensity (4 visits/year+ as needed acute care at home) Seizures 07/13/2020 Overview (05/17/2023): Stable. No recent sz activity. Not on any medication. Arteriosclerosis of aorta 07/13/2020 Overview (05/17/2023): Ongoing risk for cardiovascular phenomena such as CVA and other atheroembolic events, claudication, mesenteric ischemia, renal stenosis, CAD. Seen on cxr . Manage risk factors as able/appropriate in light of overall condition. Keep in mind if new symptoms arise. Advanced care planning/counseling discussion Overview (05/06/2021): After doing her MOLST form at last visit patient had a conversation with her children. She states the children were not happy with her decision and she has consequently changed her mind on what her wishes are. MOLST redone again today. Full code. Short-term only (pt requesting 1 week). May transfer to hospital. No dialysis or artificial nutrition. May use IV hydration. Form uploaded through [employer] to [employer]. HCP: Form started, Still needs 2 witness signatures, and will collect at next visit. Children Deborah and Felipe. Mild cognitive impairment 12/20/2019 Overview (05/17/2023): Stable. SLUMS done 11/01/22. MME . MMSE normal at in November 2020. Pt had formal neurology workup with Dr. Maldonado. Continue donepezil 5 mg. Positive reinforcement for socializing, word puzzles and proper nutrition reviewed. Reminded to exercise every day. Stage 2 chronic kidney disease 10/25/2011 Overview (05/17/2023): Stable. Continue periodic monitoring and avoidance of nephrotoxic medications. Proper hydration reviewed. Lab Results Component Value Date GFR 77 01/04/2023 GFR 70 04/11/2022 GFR 70 07/05/2021 Vitamin B12 deficiency 08/26/2010 Overview (05/17/2023): Stable. Continue Vit B12 po daily. Lab Results Component Value Date VITB12 1197 (H) 11/14/2022 VITB12 >2000 (H) 07/05/2021 VITB12 490 12/27/2019 Lab Results Component Value Date HGB 13.4 01/04/2023 HGB 14.1 04/11/2022 HGB 14.3 12/27/2019 Chronic low back pain with bilateral sciatica Overview (07/19/2022): Present. Comes and goes. S/P Back surgery for herniated disc. Patient advised to ice the area frequently. She just took 800 mg of ibuprofen. Advised to go have a snack. In the future she is advised to take 600 mg of ibuprofen with food every 8 hours as needed for this pain. Usually she will only need this for a couple days at most. She is to call me if its not resolving. I taught her a stretch she could do today. She did it with me with fair return demonstration. Advised to stretch daily if possible for prevention. Vitamin D Defiency 05/08/2007 Overview (10/25/2023): Ongoing. Continue Vitamin D 2000iu daily. Rx sent, but reminded to compare olson to OTC. Lab Results Component Value Date [id number] 28 (L) 11/14/2022 [id number] 34 07/05/2021 [id number] 35 11/09/2020 Other hyperlipidemia 05/08/2007 Overview (07/13/2020): Stable. Continue periodic monitoring. Caution with processed foods. Increase vegetables. Exercise to increase good cholesterol. Lab Results Component Value Date CHOLESTEROL 215 (H) 08/30/2016 HDL 54 08/30/2016 LDL 137 (H) 08/30/2016 TRIGLYCERIDE 121 08/30/2016 Hypertension 06/23/2005 Overview (03/11/2024): Ongoing. Sl elevated lately and today. Pain could be worsening. Continue verapamil 80 mg daily and increase losartan from 25 mg to 50 mg daily. RX sent. Avoid high sodium foods. Maintain adequate hydration of 6-8 glasses/day. Report any worsening edema, SOB/CP. Osteoporosis 06/08/2005 Overview (07/13/2020): Ongoing. TScore 2006 -2.7. remote h/o fosamax x5-6 yrs. Takes calcium and vitamin D intermittently. Pt declines Dexa. Agrees to take elo daily. Resolved Problems Problem Noted Date Diagnosed Date Resolved Date Adjustment insomnia 10/06/2021 01/25/20 Overview (05/02/2022): Improved. Continue trazodone at at bedtime. Worse with anxiety. Right foot pain 08/28/2013 12/20/2019 Overview (08/28/2013): 01/16/2014 : Impression: Postsurgical changes status post bunionectomy and osteotomies second third and fourth proximal phalanges. Ds DNA antibody positive 12/10/201204/2019 Immunizations Name Administration Dates Next Due COVID-19, mRNA (Moderna Pre Fall 2022) Monovalent, 100 mcg/0.5 ml or 50 mcg/0.25 ml dose 02/15/2021,05/29/2020,05/01/2020 COVID-19, mRNA (Moderna Pre Fall 2022) bivalent, 25 mcg/0.25 ml (6 months - 11 years) or 50 mcg/0.5 ml (12+ years) 01/10/2022 COVID-19, mRNA (Moderna Spik evax) Seasonal, 50 mcg/0.5 mL (12+) 01/28/2024 Covid-19, mRNA (Pfizer Comir lorenza) Seasonal, 30 mcg/0.3 mL (12+) 12/24/2022 FC Influenza Virus Vac Splt Prsrv Fr 3 Yrs+ 02/25/2010 Fc Fluzone Vac, 3yrs & > 03/30/2012 Influenza, Quad, Inactivated , Adjuvanted, Preser Fr 01/04/2021 Influenza,adjuvanted,trivale nt,PF (Fluad) 01/24/2018 Influenza,high dose seasonal,trivalent,PF (Fluzone HD) 01/28/2024,05/01/2019,11/25/2015 Influenza,high-dose, Quadrivalent 2022,01/03/2022,12/20/2019,2019 PCV-13 06/11/2014 PCV-20 12/24/2022 PPV23 (Pneumovax) 06/07/2005 RSV Recombinant Adjuvant, 0. 5 ML (Arexvy) 01/28/2024 Td (adult), adsorbed 10/04/2016,06/07/2005,07/28 Family History Medical History Relation Name Comments Hypertension Mother Cancer - Breast Neg Hx Relation Name Status Comments Brother 1 Alive '31 Brother 2 Alive '35 Brother 3 Alive '46 Daughter 1 Alive '59 Daughter 2 Alive '61 Father (Age 40) Pulmonary Embolism Grandchild Alive #5 (from to 2001) Mother Alive '15 (early autumn ry defecits) Sister Alive '48 Son Alive '58 Spouse Felipe Alive '25 Social History Smoking Status as of 05/10/2024 Tobacco Use Types Packs/Day Years Used Date Smoking Tobacco: Never Assessed PHQ-2 Answer Date Recorded PHQ-2 Score 0 12/20/2019 Intimate Partner Violence Answer Date R ecorded Fear of Current or Ex-Partner Not on file Emotionally Abused Not on file 10/31/2022 Physically Abused Not on file 10/31/2022 Sexually Abused Not on file 10/31/2022 Feel Safe at Home Not on file 10/31/2022 Sex and Gender Information Value Date Recorded Sex Assigned at Not on file Legal Sex Female 9:57 PM EDT Gender Identity Not on file Sexual Orientation Not on file Last Filed Vital Signs Vital Sign Reading Time Taken Comments Blood Pressure 158/66 03/11/2024 3:45 PM EST Pulse 74 03/11/2024 3:45 PM EST Temperature 36.1 ??C (97 ??F) 03/11/2024 3:45 PM EST Respiratory Rate 17 03/11/2024 3:45 PM EST Oxygen Saturation 98% 03/11/2024 3:45 PM EST Inhaled Oxygen Concentration - - Weight 70.3 kg (155 lb) 10/25/2023 10:15 AM EDT Height 157.5 cm (5' 2 ) 10/25/2023 10:15 AM EDT Body Mass Index 28.35 10/25/2023 10:15 AM EDT Plan of Treatment Not on file Procedures * Due to [place] state law, this organization might not be sharing negative HIV tests. Procedure Name Priority Date/Time Associated Diagnosis Comments DXA BONE DENSITY STUDY AXIAL (LSSPINE, HIP) (DX: OSTEOPOROSIS) Routine 03/22/2024 10:06 AM EST At risk of fracture due to osteoporosis XRAY SPINE, LUMBOSACRAL; 2 OR 3 VIEWS STAT (All results called to provider) 03/01/2024 2:42 PM EST Gluteal pain CULTURE, URINE, ROUTINE Routine 01/18/2024 9:14 AM EDT Urinary pain URINALYSIS, DIP STICK/TABLET REAGENT; AUTOMATED, W/O MICROSCOPY Routine 01/18/2024 9:10 AM EDT Urinary pain EKG-USE ONLY IN READYMED/OCC MED/CARDIO Routine 01/04/2023 2:54 PM EDT Hematuria, unspecified type COMPREHENSIVE METABOLIC PANEL WITH GFR STAT (All results called to provider) 01/04/2023 2:43 PM EDT Hematuria, unspecified type CBC INCLUDES DIFFERENTIAL AND PLATELET COUNT STAT (All results called to provider) 01/04/2023 2:43 PM EDT Hematuria, unspecified type CULTURE, URINE, ROUTINE Routine 01/04/2023 2:31 PM EDT Hematuria, unspecified type URINALYSIS, MICROSCOPIC Routine 01/04/2023 2:31 PM EDT Hematuria, unspecified type URINALYSIS, DIP STICK/TABLET REAGENT; AUTOMATED, W/O MICROSCOPY Routine 01/04/2023 12:41 PM EDT Vaginal bleeding VITAMIN D, 25-HYDROXY, TOTAL, IMMUNOASSAY Routine 11/14/2022 10:50 AM EDT Vitamin D Defiency VITAMIN B12 (CYANOCOBALAMIN), SERUM Routine 11/14/2022 10:50 AM EDT Vitamin B12 deficiency EXTRACAPSULAR CATARACT REMOVAL W/ INSERTION LENS PROSTHESIS W/O ENDOSCOPIC CYCLOPHOTOCOAG, REGULAR Routine 05/05/2022 11:04 AM EST Nuclear senile cataract of left eye UNSPECIFIED MAJOR PROCEDURE 05/05/2022 UNSPECIFIED MAJOR PROCEDURE 05/05/2022 EXTRACAPSULAR CATARACT REMOVAL W/ INSERTION LENS PROSTHESIS W/O ENDOSCOPIC CYCLOPHOTOCOAG, REGULAR Routine 04/14/2022 12:20 PM EST Nuclear senile cataract of right eye UNSPECIFIED MAJOR PROCEDURE 04/14/2022 EKG-TO BE READ & BILLED BY ADULT [...] anxiety and depressive disorder Mood disorder (HCC) OPHTHALMOLOGICAL TEST/PROCEDURE, UNSPECIFIED 02/28/2022 OPHTHALMOLOGICAL TEST/PROCEDURE, UNSPECIFIED 12/24/2021 BASIC METABOLIC PANEL WITH (GFR) Routine 07/05/2021 12:36 PM EDT Stage 2 chronic kidney disease VITAMIN B12 (CYANOCOBALAMIN), SERUM Routine 07/05/2021 12:36 PM EDT Vitamin B12 deficiency VENIPUNCTURE Routine 07/05/2021 12:36 PM EDT Vitamin D Defiency VITAMIN D, 25-HYDROXY, TOTAL, IMMUNOASSAY Routine 11/09/2020 10:53 AM EDT Vitamin D Defiency URIC ACID, SERUM Routine 11/09/2020 10:53 AM EDT Right foot pain VENIPUNCTURE Routine 11/09/2020 10:53 AM EDT Memory loss VENIPUNCTURE Routine 02/28/2020 10:51 AM EST Hypertension VENIPUNCTURE Routine 01/31/2020 1:50 PM EST Hypertension BASIC METABOLIC PANEL WITH (GFR) Routine 12/27/2019 11:02 AM EDT Pneumonia of left lower lobe due to infectious organism CBC INCLUDES DIFFERENTIAL AND PLATELET COUNT Routine 12/27/2019 11:02 AM EDT Pneumonia of left lower lobe due to infectious organism VITAMIN B12 (CYANOCOBALAMIN), SERUM Routine 12/27/2019 11:02 AM EDT Vitamin B12 deficiency VENIPUNCTURE Routine 12/27/2019 11:02 AM EDT Vitamin D Defiency SARS COV 2 RNA(COVID 19), QUALITATIVE NAAT Routine 07/11/2019 11:25 AM EDT Special screening examination for unspecified viral disease XRAY CHEST, 2 VIEWS, PA & LATERAL (DX: COUGH R05.9/ 786.2) FC Routine 06/03/2019 2:08 PM EDT Pneumonia of left lower lobe due to infectious organism (HCC) CULTURE, URINE, ROUTINE Routine 11/01/2018 10:56 AM EDT Urinary tract infection without hematuria, site unspecified URINALYSIS, MICROSCOPIC STAT (All results called to provider) 11/01/2018 10:56 AM EDT Urinary tract infection without hematuria, site unspecified URINE DIPSTICK - STATION Routine 11/01/2018 10:55 AM EDT Urinary tract infection without hematuria, site unspecified VITAMIN B12 (CYANOCOBALAMIN), SERUM Routine 08/08/2018 1:24 PM EDT Fatigue, unspecified type THYROID CASCADING REFLEX Routine 08/08/2018 1:24 PM EDT Fatigue, unspecified type BASIC METABOLIC PANEL WITH (GFR) Routine 08/08/2018 1:24 PM EDT Fatigue, unspecified type CBC INCLUDES DIFFERENTIAL AND PLATELET COUNT Routine 08/08/2018 1:24 PM EDT Fatigue, unspecified type CBC INCLUDES DIFFERENTIAL AND PLATELET COUNT STAT (All results called to provider) 07/07/2017 9:58 AM EDT Lower resp. tract infection BASIC METABOLIC PANEL WITH (GFR) STAT (All results called to provider) 07/07/2017 9:58 AM EDT Lower resp. tract infection XRAY CHEST, 2 VIEWS, PA & LATERAL (DX: COUGH R05.9/ 786.2) FC STAT (All results called to provider) 07/07/2017 9:43 AM EDT BASIC METABOLIC PANEL WITH (GFR) Routine 10/04/2016 1:41 PM EDT Hypokalemia VITAMIN D, 25-HYDROXY, TOTAL, IMMUNOASSAY Routine 08/30/2016 10:41 AM EDT Vitamin D deficiency BASIC METABOLIC PANEL WITH (GFR) Routine 08/30/2016 10:41 AM EDT Encounter for long-term (current) use of high-risk medication LIPID PANEL WITH REFLEX TO DIRECT LDL Routine 08/30/2016 10:41 AM EDT Lipids blood increased CULTURE, URINE, ROUTINE Routine 08/27/2015 11:26 AM EDT Dysuria URINALYSIS, MICROSCOPIC Routine 08/27/2015 11:26 AM EDT Dysuria URINE DIPSTICK - STATION Routine 08/27/2015 11:24 AM EDT Dysuria POTASSIUM, SERUM Routine 07/13/2015 10:51 AM EDT Low serum potassium level URINALYSIS, DIP ONLY STAT (All results called to provider) 07/07/2015 12:22 PM EDT Chronic Renal Insufficiency LIPID PANEL WITH REFLEX TO DIRECT LDL Routine 07/07/2015 11:55 AM EDT Hyperlipidemia; LDL Goal < 130 BASIC METABOLIC PANEL WITH (GFR) Routine 07/07/2015 11:55 AM EDT Chronic Renal Insufficiency CBC INCLUDES DIFFERENTIAL AND PLATELET COUNT Routine 07/07/2015 11:55 AM EDT Chronic Renal Insufficiency VITAMIN D, 25-HYDROXY, TOTAL, IMMUNOASSAY Routine 07/07/2015 11:55 AM EDT Vitamin D deficiency XRAY FOOT COMPLETE MIN 3 VWS - RIGHT Routine 05/18/2015 9:19 AM EST Right foot pain URINE DIPSTICK - STATION Routine 02/24/2015 9:59 AM EST Dysuria CULTURE, URINE, ROUTINE Routine 02/24/2015 9:57 AM EST Dysuria URINALYSIS, MICROSCOPIC Routine 02/24/2015 9:57 AM EST Dysuria THYROID CASCADING REFLEX Routine 12/15/2014 11:14 AM EDT Routine general medical examination at a health care facility Screening for thyroid disorder VITAMIN D, 25-HYDROXY, TOTAL, IMMUNOASSAY Routine 12/15/2014 11:14 AM EDT Routine general medical examination at a health care facility Unspecified vitamin D deficiency VITAMIN B12 (CYANOCOBALAMIN), SERUM Routine 12/15/2014 11:14 AM EDT Routine general medical examination at a health care facility Screening for endorine/nutritiona l/metabolic disease BASIC METABOLIC PANEL WITH (GFR) Routine 12/15/2014 11:14 AM EDT Routine general medical examination at a health care facility Encounter for long-term (current) use of high-risk medication LIPID PANEL WITH REFLEX TO DIRECT LDL Routine 12/15/2014 11:14 AM EDT Routine general medical examination at a health care facility Hyperlipidemia URINALYSIS, COMPLETE INCLUDES DIPSTICK AND MICROSCOPIC Routine 12/15/2014 11:14 AM EDT Routine general medical examination at a health care facility Hypertension CBC INCLUDES DIFFERENTIAL AND PLATELET COUNT Routine 12/15/2014 11:14 AM EDT Routine general medical examination at a [facility] care facility Screening for other disorders of blood and blood-forming organs MAMMOGRAM SCREENING , BILATERAL FC Routine 11/10/2014 10:59 AM EDT Other screening mammogram XRAY FOOT COMPLETE MIN 3 VWS - RIGHT (DX: FOOT PAIN *NO INJURY*) Routine 08/28/2013 11:47 AM EDT FOOT 3+ RT Routine 01/17/2013 10:41 AM EDT PATHOLOGY REPORT Routine 01/16/2013 7:49 PM EDT CBC INCLUDES DIFFERENTIAL AND PLATELET COUNT Routine 12/10/2012 1:46 PM EDT Ds DNA antibody positive COMPREHENSIVE METABOLIC PANEL WITH GFR Routine 12/10/2012 1:46 PM EDT Ds DNA antibody positive URINALYSIS, COMPLETE INCLUDES DIPSTICK AND MICROSCOPIC Routine 12/10/2012 1:46 PM EDT Ds DNA antibody positive EKG-TO BE READ & BILLED BY ADULT OR PEDIATRIC CARDIOLOGY Routine 12/04/2012 2:40 PM EDT Arthralgia 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 SPINE W/O CONTRAST Routine 08/29/2011 3:[address] FACIAL W/O CONTRAST Routine 2 3:[address] BRAIN W/O CONTRAST Routine 08/29/2011 3:36 PM EDT URINALYSIS,C&S IF INDICATED Routine 08/29/2011 12:23 PM EDT BASIC METABOLIC PANEL Routine 08/29/2011 12:23 PM EDT PTT(PART THROM TIME) Routine 08/29/2011 12:23 PM EDT PROTHROMBIN TIME Routine 08/29/2011 12:23 PM EDT CBC WITH 5 PART DIFF Routine 08/29/2011 12:23 PM EDT BASIC METABOLIC PANEL WITH (GFR) Routine 08/26/2011 2:49 PM EDT Hypertension URINALYSIS, DIP ONLY STAT (All results called to provider) 08/22/2011 9:17 AM EDT UTI (urinary tract infection), uncomplicated URINALYSIS, MICROSCOPIC Routine 08/22/2011 9:07 AM EDT UTI (urinary tract infection), uncomplicated CULTURE, URINE, ROUTINE Routine 08/22/2011 9:07 AM EDT UTI (urinary tract infection), uncomplicated VITAMIN D, 25-HYDROXY, LC/MS/MS Routine 05/26/2011 8:47 [...] LDL Goal < 130 Vitamin B12 deficiency BASIC METABOLIC PANEL W/GLOMERULAR [...] Goal < 130 Vitamin B12 deficiency VITAMIN B12 (CYANOCOBALAMIN), SERUM Routine 05/26/2011 8:47 AM EST Vitamin B12 deficiency CONSULT RHEUMATOLOGY Routine 10/22/2010 Vitamin D Defiency MAMMOGRAM SCREENING , BILATERAL FC Routine 04/22/2010 1:03 PM EST Other screening mammogram VITAMIN D, 25-HYDROXY, LC/MS/MS Routine 02/15/2010 Vitamin D Defiency T4, FREE THYROXINE Routine 02/15/2010 Annual physical exam TSH, THYROTROPIN Routine 02/15/2010 Annual physical exam ASPARTATE AMINOTRANSFERASE (AST), SERUM Routine 02/15/2010 Annual physical exam Hypertension Hyperlipidemia; LDL Goal < 130 ALANINE AMINOTRANSFERASE (ALT), SERUM Routine 02/15/2010 Annual physical exam Hypertension Hyperlipidemia; LDL Goal < 130 LIPID PANEL + CARDIAC RISK WITH REFLEX TO LDL DIRECT Routine 02/15/2010 Hypertension Hyperlipidemia; LDL Goal < 130 BASIC METABOLIC PANEL W/GLOMERULAR FILTRATION RATE (EGFR) Routine 02/15/2010 Annual physical exam CBC 5 PART DIFF Routine 02/15/2010 Annual physical exam Hypertension Hyperlipidemia; LDL Goal < 130 VITAMIN B12 Routine 02/15/2010 Vitamin D Defiency Hyperlipidemia; LDL Goal < 130 Hypertension Osteoporosis T4, FREE THYROXINE Routine 02/23/2009 Myalgia and Myositis Hyperlipidemia; LDL Goal < 130 Hypertension Back Pain TSH, THYROTROPIN Routine 02/23/2009 Myalgia and Myositis Hyperlipidemia; LDL Goal < 130 Hypertension Back Pain CBC 5 PART DIFF Routine 02/23/2009 Myalgia and Myositis Hyperlipidemia; LDL Goal < 130 Hypertension Back Pain BASIC METABOLIC PANEL W/GLOMERULAR FILTRATION RATE (EGFR) Routine 02/23/2009 Myalgia and Myositis Hyperlipidemia; LDL Goal < 130 Hypertension Back Pain LIPID PANEL + CARDIAC RISK WITH REFLEX TO LDL DIRECT Routine 02/23/2009 Myalgia and Myositis Hyperlipidemia; LDL Goal < 130 Hypertension Back Pain SCREENING DIGITAL MAMMOGRAPHY BILATERAL Routine 08/29/2008 9:14 AM EDT MAGNESIUM Routine 08/15/2008 Back Pain Leg Cramps VITAMIN B12 Routine 08/15/2008 Hypertension Fungal Dermatitis VITAMIN D, 25-HYDROXY, LC/MS/MS Routine 08/15/2008 Hypertension Fungal Dermatitis T4, FREE THYROXINE Routine 08/15/2008 Hypertension Fungal Dermatitis TSH, THYROTROPIN Routine 08/15/2008 Hypertension Fungal Dermatitis ALANINE AMINOTRANSFERASE (ALT), SERUM Routine 08/15/2008 Hypertension Fungal Dermatitis ASPARTATE AMINOTRANSFERASE (AST), SERUM Routine 08/15/2008 Hypertension Fungal Dermatitis CBC 5 PART DIFF Routine 08/15/2008 Hypertension Fungal Dermatitis BASIC METABOLIC PANEL Routine 08/15/2008 Hypertension Fungal Dermatitis CARDIAC RISK/LIPID PROFILE I Routine 08/15/2008 Hypertension Fungal Dermatitis XRAY FOOT COMPLETE MIN 3 VWS - RIGHT Routine 07/03/2008 8:43 AM EDT CBC 5 PART DIFF Routine 04/04/2008 Hypertension Fungal Dermatitis BASIC METABOLIC PANEL Routine 04/04/2008 Hypertension Fungal Dermatitis CARDIAC RISK/LIPID PROFILE I Routine 04/04/2008 Hypertension Fungal Dermatitis SCREENING MAMMOGRAPHY BILATERAL (TWO VIEW FILM STUDY OF EACH BREAST) Routine 08/24/2007 1:33 PM EDT CYTOLOGY/PATHOLOGY/GEN ETICS UNSPECIFIED 06/23/2007 LAMINOTOMY/DECOMPRES W/PARTIAL FACETECTOMY/FORAMINOTO MY/HERNIATED DISCECTOMY; 1 INTERSPACE, LUMBAR 06/22/2007 12:00 AM EDT Displacement of Lumbar Intervertebral Disc without Myelopathy UNSPECIFIED MAJOR PROCEDURE 06/22/2007 BASIC METABOLIC PANEL Routine 06/12/2007 Hypertension CARDIAC RISK/LIPID PROFILE I Routine 06/12/2007 Hyperlipidemia CBC 5 PART DIFF STAT (All results called to provider) 06/08/2007 FATIGUE BASIC METABOLIC PANEL STAT (All results called to provider) 06/08/2007 DEHYDRATION MRI LUMBAR SPINE Routine 06/06/2007 2:04 AM EDT XRAY SPINE LUMBOSACRAL AP & LAT Routine 05/25/2007 12:29 PM EST VITAMIN D, 25-HYDROXY, LC/MS/MS Routine 04/09/2007 Osteoporosis CBC W/O DIFFERENTIAL Routine 04/09/2007 SCREENING FOR OTHER AND UNSPECIFIED DEFICIENCY ANEMIA CARDIAC RISK/LIPID PROFILE I Routine 04/09/2007 SCREENING FOR LIPOID DISORDERS BASIC METABOLIC PANEL Routine 04/09/2007 Hypertension URINALYSIS, COMPLETE (DIP & MICRO) Routine 04/09/2007 Hypertension THYROID CASCADE Routine 04/09/2007 SCREEN-ENDOC/NUT/ME T NEC GASTROENTEROLOGY TEST/PROCEDURE, UNSPECIFIED 04/07/2006 12:00 AM EST COLON CA SCRN NOT HI RSK IND 04/07/2006 12:00 AM EST Special Screening for Malignant Neoplasms, Colon COLON CA SCRN NOT HI RSK IND 04/07/2006 12:00 AM EST Special Screening for Malignant Neoplasms, Colon EKG-TO BE READ & BILLED BY ADULT OR PEDIATRIC CARDIOLOGY Routine 09/26/2005 10:50 AM EDT Hypertension CHEMISTRY PANEL CP-7 Routine 09/26/2005 10:00 AM EDT Hypertension CBC 5 PART DIFF Routine 09/26/2005 Hypertension URINALYSIS Routine 06/17/2005 9:16 AM EST TSH, THYROTROPIN Routine 06/17/2005 9:16 AM EST CARDIAC RISK/LIPID PROFILE I Routine 06/17/2005 9:16 AM EST BASIC METABOLIC PANEL Routine 06/17/2005 9:16 AM EST DUAL ENERGY DEXA BONE DENSITY ONE/MORE SITES AXIAL SKEL Routine 06/08/2005 9:13 AM EST Unspecified Menopausal and Postmenopausal Disorder SCREENING MAMMOGRAPHY BILATERAL (TWO VIEW FILM STUDY OF EACH BREAST) Routine 06/03/2005 2:19 PM EST Other Screening Mammogram XRAY PELVIS AP ONLY Routine 06/03/2005 1 :44 PM EST Cervicalgia XRAY SPINE LUMBOSACRAL AP & LAT Routine 06/03/2005 1:44 PM EST Cervicalgia XRAY SPINE THORACIC AP & LAT Routine 06/03/2005 1:43 PM EST Cervicalgia XRAY SPINE CERVICAL AP & LAT Routine 06/03/2005 1:43 PM EST Cervicalgia STREP SCREEN CULTURE (GROUP A) Routine 12/03/1999 2:17 PM EDT XRAY CHEST 2 VIEWS PA & LAT Routine 05/13/1999 10:00 AM EST Pneumonia, Organism Unspecified XRAY CHEST 2 VIEWS PA & LAT Routine 04/02/1999 11:15 AM EST Pneumonia, Organism Unspecified XRAY CHEST 2 VIEWS PA & LAT Routine 03/16/1999 12:00 PM EST Cough CHEMISTRY PANEL CP-7 Routine 02/22/1999 2:51 AM EST CBC 5 PART DIFF Routine 02/22/1999 2:51 AM EST AMYLASE Routine 02/22/1999 2:51 AM EST SCREENING MAMMOGRAPHY BILATERAL (TWO VIEW FILM STUDY OF EACH BREAST) Routine 09/08/1998 8:30 AM EDT Other Screening Mammogram DUAL ENERGY DEXA BONE DENSITY ONE/MORE SITES AXIAL SKEL Routine 09/08/1998 7:45 AM EDT Unspecified Osteoporosis XRAY SPINE LUMBOSACRAL AP & LAT Routine 08/27/1998 9:15 AM EDT Lumbar Sprain and Strain TRIGLYCERIDES Routine 07/01/1998 5:18 PM EDT CHOLESTEROL, LDL (DIRECT) Routine 07/01/1998 5:18 PM EDT CHOLESTEROL, HDL (DIRECT) Routine 07/01/1998 5:18 PM EDT CHEMISTRY PANEL CP-7 Routine 07/01/1998 5:18 PM EDT CHOLESTEROL, TOTAL Routine 07/01/1998 5: 18 PM EDT CBC 5 PART DIFF Routine 07/01/1998 5:18 PM EDT CA 125 Routine 07/01/1998 5:18 PM EDT CALCIUM Routine 07/01/1998 5:18 PM EDT AST (SGOT) Routine 07/01/1998 5:18 PM EDT ALT (SGPT) Routine 07/01/1998 5:18 PM EDT MAMMOGRAPHY-BILATERAL Routine 09/29/1993 8:30 AM EDT Breast Screening, Unspecified TRIGLYCERIDES Routine 07/28/1993 9:27 AM EDT CHOLESTEROL, LDL (DIRECT) Routine 07/28/1993 9:27 AM EDT CHOLESTEROL, HDL (DIRECT) Routine 07/28/1993 9:27 AM EDT CHEMISTRY PANEL CP-7 Routine 07/28/1993 9:27 AM EDT CHOLESTEROL, TOTAL Routine 07/28/1993 9: 27 AM EDT AST (SGOT) Routine 07/28/1993 9:27 AM EDT ALT (SGPT) Routine 07/28/1993 9:27 AM EDT WBC ([facility]) Routine 07/02/1993 9 :54 AM EDT CHEMISTRY PANEL CP-7 Routine 07/01/1993 11:21 AM EDT CBC 5 PART DIFF Routine 07/01/1993 11:21 AM EDT AST (SGOT) Routine 07/01/1993 11:21 AM EDT AMYLASE Routine 07/01/1993 11:21 AM EDT ALT (SGPT) Routine 07/01/1993 11:21 AM EDT ALKALINE PHOSPHATASE Routine 07/01/1993 11:21 AM EDT URINALYSIS Routine 07/01/1993 11:19 AM EDT URINALYSIS Routine 07/11/1990 9:51 AM EDT CBC 5 PART DIFF Routine 07/11/1990 9:51 AM EDT Results * Due to [place] state law, this organization might not be sharing negative HIV tests. * DXA BONE DENSITY STUDY AXIAL (LSSPINE, HIP) (DX: OSTEOPOROSIS) (03/22/2024 10:06 AM EST) Anatomical Region Laterality Modality BONE DENSITY Impressions 04/05/2024 1:28 PM EST : Osteopenia (Low Bone Mass) There has been significant bone loss since the prior scan. RECOMMENDATIONS: There has been significant decrease in BMD since the previous scan. Consider screening for secondary causes of bone loss such as vitamin D deficiency as clinically indicated. Continue with appropriate doses of calcium and vitamin D as necessary to meet daily recommended requirements. Weightbearing exercise and resistive weight training may also be helpful if clinically appropriate. The FRAX score is in the range that pharmacological therapy should be considered. FOLLOWUP: Approximately 1-2 years or as clinically indicated. FRAX GENERAL INFORMATION: The fracture risk assessment tool for FRAX was developed by the WHO to help the clinician make treatment decisions in postmenopausal women and men aged 50-year-old or who have low bone mass. Current recommendations for pharmacologic treatment using the FRAX assessment is osteopenia with greater than or equal to 20% for a major osteoporotic fracture, and greater than or equal to 3% for an estimated fracture of the hip. Please refer also to the webpage: http://www.shef.ac.uk/FRAX/. WHO DIAGNOSTIC CRITERIA: (Applicable for postmenopausal women and men age 50 and older.) Normal: ?T-score at or above -1 SD Osteopenia: ? T-score between -1 and -2.5 SD Osteoporosis: ?T-score at or below -2.5 SD Established (Severe) Osteoporosis : ??T-score at or below -2.5 SD plus fragility fracture Narrative 04/05/2024 1:28 PM EST DUAL-ENERGY X-RAY ABSORPTIOMETRY (DXA) SCAN: ?? DXA MODEL: [employer] A in fast scan mode RISK FACTORS: The patient reports parent with a hip fracture. TREATMENT: The patient reports multivitamin and calcium and vitamin D. LIMITATIONS: Degenerative changes appear to be present in the lumbar spine which may cause an artifactual increase in BMD. RESULTS: Lumbar Spine L1-L2 and L4: 0.807 g/cm2, T-score -2.1, Z-score 0.8, 9.4 % a significant change vs prior study 06/08/2005 Left Femoral Neck: 0.670 g/cm2, T-score -1.6, Z-score 0.9 Left Total Hip: 0.770 g/cm2, T-score -1.4, Z-score 0.9 , -3.9 % significant change vs prior study FRAX 10-year Fracture Risk: Major osteoporotic fracture 25% and hip fracture 15% Vale [employer] WRITER IMG DEXA IMAGING Final Resu lt * XRAY SPINE, LUMBOSACRAL; 2 OR 3 VIEWS (03/01/2024 2:42 PM EST) Anatomical Region Laterality Modality Spine Computed Radiogr aphy Narrative 03/01/2024 2:54 PM EST Patient History: CONTRAST: 3 views lumbar spine Comparison: None Findings: There is remote 20% compression fracture of L1 with disc margin osteophytes. There is moderate scoliosis with advanced degenerative narrowing of all lumbar disc spaces. There is 8.5 mm left lateral subluxation L1 on L2. There is 5.5 mm right lateral subluxation of L3 on L4. ?? Extensive mid and lower level posterior facet hypertrophy with signs of canal stenosis. Sacroiliac joints unremarkable Impression: Advanced degenerative spondylosis with no acute findings. Procedure Note Hossein Gifford MD - 03/01/2024 Patient History: CONTRAST: 3 views lumbar spine Comparison: None Findings: There is remote 20% compression fracture of L1 with disc marginosteophytes. There is moderate scoliosis with advanced degenerative narrowing of alllumbar disc spaces. There is 8.5 mm left lateral subluxation L1 on L2. There is 5.5 mm rightlateral subluxation of L3 on L4. Extensive mid and lower level posterior facet hypertrophy with signs ofcanal stenosis. Sacroiliac joints unremarkable Impression: Advanced degenerative spondylosis with no acute findings. Rocio CLAUDIO IMG XRAY NO CONTRAST ORDERA BLES Final Result * (ABNORMAL) CULTURE, URINE, ROUTINE (01/18/2024 9:14 AM EDT) Only the most recent of6 resultswithin the time period is included. Bacteria culture (Urine) SEE NOTE(A) [facility] Comment: ??CULTURE, URINE, ROUTINE ??Micro Number: ?[id number] ??Test Status: ? Final ??Specimen Source: ?? Urine ??Specimen Quality: ??Adequate ??Result: ?Greater than 100,000 CFU/mL of Escherichia coli ?E.coli ?INT ?? VAN ?? AMOX/CLAVULANATE ? S ? <=2 ?? AMPICILLIN ? S ? <=2 ?? AMP/SULBACTAM ?S ? <=2 ?? CEFAZOLIN ?NR ?<=4 2 ?? CEFEPIME ? S ? <=1 ?? CEFTAZIDIME ?S ? <=1 ?? CEFTRIAXONE ?S ? <=1 ?? CIPROFLOXACIN ?S ? <=0.25 ?? GENTAMICIN ? S ? <=1 ?? IMIPENEM ? S ? <=0.25 ?? LEVOFLOXACIN ? S ? <=0.12 ?? NITROFURANTOIN ? S ? <=16 ?? PIP/TAZOBACTAM ? S ? <=4 ?? TOBRAMYCIN ? S ? <=1 ?? TRIMETHOPRIM/SULFA ? S ? <=20 S = Susceptible ??I = Intermediate ??R = Resistant ??NS = Not susceptible SDD = Susceptible Dose Dependent ??* = Not Tested ??NR = Not Reported NN = See Therapy Comments THERAPY COMMENTS ?Note 1: ?For infections other than uncomplicated UTI ?caused by E. coli, K. pneumoniae or P. mirabilis: ?Cefazolin is resistant if VAN > or = 8 mcg/mL. ?(Distinguishing susceptible versus intermediate ?for isolates with VAN < or = 4 mcg/mL requires ?additional testing.) ?Note 2: ?For uncomplicated UTI caused by E. coli, ?K. pneumoniae or P. mirabilis: Cefazolin is ?susceptible if VAN <32 mcg/mL and predicts ?susceptible to the oral agents cefaclor, cefdinir, ?cefpodoxime, cefprozil, cefuroxime, cephalexin ?and loracarbef. 01/18/2024 9:14 AM EDT 01/18/2024 10:46 PM EDT Narrative Resulting Agency Comment [id number] Jennifer Robles MD LABORATORY Final Result [facility] [address] [place] [address] * (ABNORMAL) [facility] URINALYSIS (01/18/2024 9:10 AM EDT) Only the most recent of2 resultswithin the time period is included. Color (Urine) Yellow YELLOW [facility] Clarity Cloudy(A) Clear [facility] Leukocyte Large(A) Negative [facility] Nitrite Negative Negative [facility] Urobilinogen (Urine) 0.2 0-1 E.U./dL [facility] Protein Negative Negative [facility] PH (Urine) 6.0 5.0 - 8.0 [facility] Blood (Urine) Small(A) Negative [facility] Specific Lyles (Urine) 1.020 1.005 - 1.030 [facility] Ketones (Urine) Negative Negative [facility]NALY[facility] Bilirubin (Urine) Negative Negative [facility] Glucose (Urine) Negative Negative [facility] 01/18/2024 9:10 AM EDT 01/18/2024 9:10 AM EDT Narrative [facility] - 01/18/2024 9:10 AM EDT #:[id number] Location:[facility] Jennifer Robles MD LAB SAME DAY RESULT Edited R esult - Final Performing Organization Address [facility] Co de Phone Number [facility]NA[facility] * EKG-USE ONLY IN [facility]/OCC MED/CARDIO (01/04/2023 2:54 PM EDT) VENTRICULAR RATE 69 BPM MUS E EKG SYSTEM ATRIAL RATE 69 BPM MUSE EKG SYSTEM P-R INTERVAL 138 ms MUSE EK G SYSTEM QRS DURATION 78 ms MUSE EK G SYSTEM QT 398 ms MUSE EKG SYSTEM QTC 426 ms MUSE EKG SYSTEM P AXIS 49 degrees MUSE EKG SYSTEM R AXIS 0 degrees MUSE EKG SYSTEM T AXIS 39 degrees MUSE EKG SYSTEM EKG INTERPRETATION Normal sinus rhythm Normal ECG When compared with ECG of 11-APR-2022 11:48, No significant change was found Confirmed by CORNELIO BARRAZA ([id number]) on 01/05/2023 9:32:29 AM MUSE EKG SYSTEM 01/04/2023 2:54 PM EDT 01/05/2023 9:32 AM EDT us Chalino Ye MD CARDIOVASCULAR-WITH INBSKT RT G Final Result Performing Organization Address City/[facility]/ZIP Co de Phone Number MUSE EKG SYSTEM * CBC INCLUDES DIFFERENTIAL AND PLATELET COUNT (01/04/2023 2:43 PM EDT) Only the most recent of8 resultswithin the time period is included. WBC 8.8 3.8 - 10.8 Thousand/u L [facility] RBC 4.74 3.80 - 5.10 Million/uL [facility] Hemoglobin 13.4 11.7 - 15.5 g/dL [facility] Hematocrit 39.8 35.0 - 45.0 % [facility] MCV 84.0 80.0 - 100.0 fL [facility] MCH 28.3 27.0 - 33.0 pg [facility] MCHC 33.7 32.0 - 36.0 g/dL [facility] RDW 12.9 11.0 - 15.0 % [facility] PLT 216 140 - 400 Thousand/u L [facility] MPV 8.8 7.5 - 12.5 fL [facility] DIAGNOSTICS Neutrophils # 6028 1500 - 7800 cells/uL [facility] Lymphocytes # 2156 850 - 3900 cells/uL [facility] Monocytes # 458 200 - 950 cells/uL [facility] Eosinophils # 132 15 - 500 cells/uL [facility] Basophils # 26 0 - 200 cells/uL [facility] Neutrophils % 68.5 % [facility] Lymphocytes % 24.5 % [facility] Monocytes % 5.2 % [facility] Eosinophils % 1.5 % [facility] Basophils % 0.3 % [facility] 01/04/2023 2:43 PM EDT 01/04/2023 2:52 PM EDT us Chalino Ye MD LAB SAME DAY RESULT Final Res ult [facility] [address] [place] [address] * COMPREHENSIVE METABOLIC PANEL WITH GFR (01/04/2023 2:43 PM EDT) Only the most recent of2 resultswithin the time period is included. Glucose 97 65 - 99 mg/dL [facility] Comment:Fasting reference in terval Urea Nitrogen Blood (BUN) 19 7 - 25 mg/dL [facility] Creatinine 0.76 0.60 - 0.95 mg/dL [facility] EGFR 77 > OR = 60 mL/min/1. 73m2 [facility] BUN/Creatinine Ratio SEE NOTE: 6 (calc) [facility] Comment: ?? Not Reported: BUN and Creatinine are within ?? reference range. Sodium 136 135 - 146 mmol/L [facility] Potassium 4.0 3.5 - 5.3 mmol/L [facility] Chloride 106 98 - 110 mmol/L [facility] Carbon dioxide 24 20 - 32 mmol/L [facility] Calcium 8.9 8.6 - 10.4 mg/dL [facility] Protein Total (Serum) 6.8 6.1 - 8.1 g/dL [facility] Albumin 4.0 3.6 - 5.1 g/dL [facility] Globulin 2.8 1.9 - 3.7 g/dL (calc) [facility] Albumin/Globuli n 1.4 1.0 - 2.5 (calc) [facility] Bilirubin Total 0.5 0.2 - 1.2 mg/dL [facility] Alkaline phosphatase 53 37 - 153 U/L [facility] AST (SGOT) 22 10 - 35 U/L [facility] ALT (SGPT) 15 6 - 29 U/L [facility] 01/04/2023 2:43 PM EDT 01/04/2023 2:52 PM EDT Narrative [facility] - 01/04/2023 3:31 PM EDT Please note that this estimated [...] with more precise needs for GFR calculation. us Chalino Ye MD LABORATORY Final Result [facility] [address] [place] [address] * (ABNORMAL) URINALYSIS, MICROSCOPIC (01/04/2023 2:31 PM EDT) Only the most recent of5 resultswithin the time period is included. WBC (Urine) 0-5 < OR = 5 /HPF [facility] RBC (Urine Sed) 0-2 < OR = 2 /HPF [facility] Epithelial cells.squamous (Urine sed) 0-5 < OR = 5 /HPF [facility] Bacteria (Urine) FEW(A) NONE SEEN /HPF [facility] Service comment 01 See Below [facility] Comment: This urine was analyzed for the presence of WBC, RBC, bacteria, casts, and other formed elements. Only those elements seen were reported. 01/04/2023 2:31 PM EDT 01/04/2023 2:36 PM EDT Narrative Resulting Agency Comment [id number] Chalino Ye MD LAB SAME DAY RESULT Final Res ult Performing Organization Address [facility] de Phone Number [facility] [address] [place] [address] * (ABNORMAL) VITAMIN B12 (CYANOCOBALAMIN), SERUM (11/14/2022 10:50 AM EDT) Only the most recent of6 resultswithin the time period is included. Vitamin B12 (Cobalamins) 1197(H) 200 - 1100 pg/mL [facility] 11/14/2022 10:5 0 AM EDT 11/14/2022 10:58 PM EDT Narrative Resulting Agency Comment [id number] Vale Walls TAG WRITER LABORATORY Final Resul t Performing Organization Address [facility] de Phone Number [facility] [address] [place] [address] * (ABNORMAL) VITAMIN D, 25-HYDROXY, TOTAL, IMMUNOASSAY (11/14/2022 10:50 AM EDT) Only the most recent of7 resultswithin the time period is included. Vitamin D, 25-OH, Total 28(L) 30 - [...] D, (D2,D3), LC/MS/MS is recommended: order code 86403 (patients >2yrs). See Note 1 Note 1 For additional information, please refer to http://education.KeyView.TravelAI/faq/WIK306 (This link is being provided for informational/ educational purposes only.) 11/14/2022 10:5 0 AM EDT 11/14/2022 10:58 PM EDT Narrative Resulting Agency Comment [id number] Vale Walls TAG WRITER LABORATORY Final Resul t [facility] [address] [place] [address] * UNSPECIFIED MAJOR PROCEDURE (05/05/2022) Kavon Haskins MD PROCEDURES Final Result * UNSPECIFIED MAJOR PROCEDURE (05/05/2022) Kavon Haskins MD PROCEDURES Final Result * UNSPECIFIED MAJOR PROCEDURE (04/14/2022) Kavon Haskins MD PROCEDURES Final Result * EKG-TO BE READ & BILLED BY ADULT OR PEDIATRIC CARDIOLOGY (04/11/2022 11:48 AM EST) Only the most recent of2 resultswithin the time period is included. VENTRICULAR RATE 65 BPM MUS E EKG [...] No significant change was found Confirmed by CORNELIO BARRAZA ([id number]) on 04/12/2022 1:35:46 PM MUSE EKG SYSTEM 04/11/2022 11:4 8 AM EST 04/12/2022 1:35 PM EST Gail Barber TAG WRITER CARDIOVASCULAR-WITH INBSKT R TG Final Result [facility] EKG SYSTEM * BASIC METABOLIC PANEL WITH (GFR) (04/11/2022 10:50 AM EST) Only the most recent of12 resultswithin the time period is included. Glucose 94 65 - 99 mg/dL [facility] [...] needs for GFR calculation. Resulting Agency Comment [id number] us Gail Maier Leightonhetal TAG WRITER LABORATORY Final Result [facility] [address] [place] [address] * OPHTHALMOLOGICAL TEST/PROCEDURE, UNSPECIFIED (02/28/2022) us Kavon Haskins MD PROCEDURES Final Result * OPHTHALMOLOGICAL TEST/PROCEDURE, UNSPECIFIED (12/24/2021) Result [facility] Kavon Haskins MD PROCEDURES Final Result * URIC ACID, SERUM (11/09/2020 10:53 AM EDT) Uric Acid Serum 5.0 2.5 - 7.0 mg/dL [facility] Comment:Therapeutic target f or gout patients: <6.0 mg/dL 11/09/2020 10:5 3 AM EDT 11/09/2020 12:10 PM EDT Narrative Resulting Agency Comment [id number] Vale Walsl TAG WRITER LABORATORY Final Resul t Performing Organization Address [facility] Co de Phone Number [facility] [address] [place] [address] * THYROID STIMULATING HORMONE (TSH) WITH FREE T4 REFLEX, SERUM (11/09/2020 10:53 AM EDT) Pathologist [facility] TSH 1.80 0.40 - 4.50 mIU/L [facility] 11/09/2020 10:5 3 AM EDT 11/09/2020 12:10 PM EDT Narrative Resulting Agency Comment [id number] Result [facility] Vale Walls TAG WRITER LABORATORY Final Resul t Performing Organization Address [facility] Co de Phone Number [facility] [address] [place] [address] * (ABNORMAL) SARS COV 2 RNA(COVID 19), QUALITATIVE NAAT (07/11/2019 11:25 AM EDT) SARS-COV-2 RNA DETECTED( A) NOT DETECTED [facility] Comment: A Detected result is considered a positive test result for COVID-19. ??This indicates that RNA from SARS-CoV-2 (formerly 2019-nCoV) was detected, and the patient is infected with the virus and presumed to be contagious. If requested by public health authority, specimen will be sent for additional testing. Due to the current public health emergency, [facility] is receiving a high volume of samples [...] the FDA authorized labeling available on the SnapYet[employer] website: www.KeyView.TravelAI/Covid19. 07/11/2019 11:2 5 AM EDT 07/11/2019 4:43 PM EDT Narrative Resulting Agency Comment [id number] [facility] [place] [facility] Final Result [facility] [address] [place] [address] * XRAY CHEST, 2 VIEWS, PA & LATERAL (DX: COUGH R05/ 786.2) FC (06/03/2019 2:08 PM EDT) Only the most recent of2 resultswithin the time period is included. Anatomical Region Laterality Modality CHEST Radiographic Lamar ging 06/03/2019 2:17 PM EDT Narrative 06/03/2019 2:17 PM EDT EXAM: ??CHEST, PA AND LATERAL Comparison: CR ??- XRAY CHEST 2 VIEWS PA ?? - 07/07/2017 09:40 AM EDT FINDINGS: Frontal and lateral views of the chest show no evidence of air space consolidation. There is no pneumothorax, pleural effusion, or congestive changes. ??Bilateral linear atelectasis. ??Size is enlarged. ??Arteriosclerosis of the aorta. ??There are spondylotic changes of the thoracic spine. ??Thoracic kyphosis. IMPRESSION: No acute cardiopulmonary abnormality is identified. Cardiomegaly. Procedure Note Maria C Almaraz MD - 06/03/2019 EXAM: CHEST, PA AND LATERAL Comparison: CR - XRAY CHEST 2 VIEWS PA - 07/07/2017 09:40 AM EDT FINDINGS: Frontal and lateral views of the chest show no evidence of air space consolidation. There is no pneumothorax, pleural effusion, or congestive changes. Bilateral linear atelectasis. Size is enlarged.Arteriosclerosis of the aorta. There are spondylotic changes of the thoracic spine. Thoracic kyphosis. IMPRESSION: No acute cardiopulmonary abnormality is identified. Cardiomegaly. Shreyas Orellana MD IMG XRAY NO CONTRAST ORDERABLES Final Result * URINE DIPSTICK - STATION (11/01/2018 10:55 AM EDT) Only the most recent of3 resultswithin the time period is included. COLOR (URINE) yellow APPEARANCE (URINE) clear Clear Leukocyte esterase (Urine) 3+ Neg NITRITE (URINE) positive Neg UROBILINOGEN, URINE 0.2 Neg PROTEIN (URINE) negative Neg PH (URINE) 5.0 5.0 - 8.0 BLOOD (URINE) negative Neg SPECIFIC GRAVITY 1.010 1.001 - 1.035 UR KETONES negative Neg BILIRUBIN (URINE) negative Neg GLUCOSE (URINE) negative Neg Urine specimen (specimen) 11/01/2018 10:55 AM EDT Carissa Barbosa ME [facility] Final Result * THYROID CASCADING REFLEX (08/08/2018 1:24 PM EDT) Only the most recent of2 resultswithin the time period is included. TSH 2.94 0.40 - 4.50 mIU/L [facility] 08/08/2018 1:24 PM EDT 08/08/2018 7:50 PM EDT Narrative Resulting Agency Comment [id number] Shreyas Orellana MD LABORATORY Final Result [facility] [address] [place] [address] * (ABNORMAL) LIPID PANEL WITH REFLEX TO DIRECT LDL (08/30/2016 10:41 AM EDT) Only the most recent of3 resultswithin the time period is included. Cholesterol 215(H) 125 - 200 mg/dL [facility] HDL Cholesterol 54 > OR = 46 mg/dL [facility] Triglyceride 121 <150 mg/dL [facility] LDL Cholesterol 137(H) <130 mg/dL (calc) [facility] Comment: Desirable range <100 mg/dL for patients with CHD or diabetes and <70 mg/dL for diabetic patients with known heart disease. CHOL/HDL Ratio 4.0 < OR = 5.0 (calc) [facility] Cholesterol Non-HDL 161(H) mg/dL (calc) [facility] Comment: Target for non-HDL cholesterol is 30 mg/dL higher than LDL cholesterol target. 08/30/2016 10:4 1 AM EDT 08/30/2016 2:54 PM EDT Narrative Resulting Agency Comment [id number] Shreyas Orellana MD LABORATORY Final Result Performing Organization Address City/[facility]/ZIP Co de Phone Number [facility] [address] [place] [address] * POTASSIUM, SERUM (07/13/2015 10:51 AM EDT) Potassium 4.6 3.5 - 5.3 mmol/L [facility] Comment:{POTASSIUM {[id number]) 07/13/2015 10:5 1 AM EDT 07/13/2015 5:29 PM EDT Narrative Resulting Agency Comment [id number] Alison Francis MD LAB SAME DAY RESULT Final Resul t Performing Organization Address City/[facility]/ZIP Co de Phone Number [facility] [address] [place] [address] * URINALYSIS, DIP ONLY ( SITE STAT ONLY) (07/07/2015 12:22 PM EDT) Only the most recent of2 resultswithin the time period is included. COLOR (URINE) YELLOW [facility] (CLIA# [id number]) APPEARANCE (URINE) CLEAR [facility] (CLIA# [id number]) SPECIFIC GRAVITY 1.010 1.001 - 1.035 [facility] (CLIA# [id number]) PH (URINE) 7.5 5.0 - 8.0 [facility] (CLIA# [id number]) PROTEIN (URINE) NEGATIVE Neg [facility] (CLIA# [id number]) GLUCOSE (URINE) NEGATIVE Neg [facility] (CLIA# [id number]) Ketones (Urine) NEGATIVE Neg [facility] (CLIA# [id number]) BILIRUBIN (URINE) NEGATIVE Neg [facility] (CLIA# [id number]) BLOOD (URINE) NEGATIVE Neg [facility] (CLIA# [id number]) WBC (URINE) NEGATIVE Neg [facility] (CLIA# [id number]) NITRITE (URINE) NEGATIVE Neg [facility] (CLIA# [id number]) Urine specimen obtained by clean catch procedure (specimen) 07/07/2015 12:22 PM EDT us Alison Francis MD LAB SAME DAY RESULT Final Resul t [facility] (CLIA# [id number]) [address] [place] [address] * XRAY FOOT COMPLETE MIN 3 VWS - RIGHT FC (05/18/2015 9:19 AM EST) Anatomical Region Laterality Modality LOWER EXTREMITY Radiographic Lamar ging 05/25/2015 2:05 PM EST Narrative 05/25/2015 2:05 PM EST Right foot 05/18/2015: Comparison August 2013. A lump over the dorsum is marked with BB. Subadjacent to the BB there is new spurring from the dorsum of the second tarsometatarsal joint consistent with interval developing degenerative change. There is evidence of more remote surgery including first metatarsal osteotomy and bunionectomy, and resection distal end proximal phalanx fourth toe. There is ankylosis of the PIP joint of the second and third toes. There is degenerative change in several of the [place] IP joints. In addition to moderately severe hallux valgus there is valgus deformity of toes 2 through 4 and there are hammertoe deformities as well. ??There are subchondral cystic changes in several of the metatarsal heads. There is no developing erosion. There is no fracture seen. Tiny posterior calcaneal spur. CONCLUSION:: 1. Progressive hypertrophic degenerative chemical recovery operator the dorsum of the foot at the second tarsometatarsal joint. 2. Stable postoperative changes and degenerative changes involving many of the rays in the forefoot. Procedure Note Travis Wolfe MD - 05/25/2015 Right foot 05/18/2015: Comparison August 2013. A lump over the dorsum is marked with BB. Subadjacent to the BB there is new spurring from the dorsum of the second tarsometatarsal joint consistent with interval developing degenerative change. There is evidence of more remote surgery including first metatarsal osteotomy and bunionectomy, and resection distal end proximal phalanx fourth toe. There is ankylosis of the PIP joint of the second and third toes. There is degenerative change in several of the [place] IP joints. In addition to moderately severe hallux valgus there is valgus deformity of toes 2 through 4 and there are hammertoe deformities as well. There are subchondral cystic changes in several of the metatarsal heads. There is no developing erosion. There is no fracture seen. Tiny posterior calcaneal spur. CONCLUSION:: 1. Progressive hypertrophic degenerative chemical recovery operator the dorsum of the foot at the second tarsometatarsal joint. 2. Stable postoperative changes and degenerative changes involving many of the rays in the forefoot. Alison Francis MD IMG XRAY NO CONTRAST ORDERABLES Final Result * URINALYSIS, COMPLETE INCLUDES DIPSTICK AND MICROSCOPIC (12/15/2014 11:14 AM EDT) Only the most recent of2 resultswithin the time period is included. Color (Urine) YELLOW YELLOW [facility] Comment:{COLOR {[id number]) Appearance (Urine) CLEAR CLEAR [facility] Comment:{APPEARANCE {[id number]) Specific gravity (Urine) 1.014 1.001 - 1.035 [facility] Comment:{SPECIFIC GRAVITY {[id number]) pH (Urine) 6.5 5.0 - 8.0 [facility] Comment:{PH {[id number]) Glucose (Urine) NEGATIVE NEGATIVE [facility] Comment:{GLUCOSE {[id number]) Bilirubin (Urine) NEGATIVE NEGATIVE [facility] Comment:{BILIRUBIN {[id number]) Ketones (Urine) NEGATIVE NEGATIVE [facility] Comment:{KETONES {[id number]) Hemoglobin (Urine) NEGATIVE NEGATIVE [facility] Comment:{OCCULT BLOOD {[id number]) Protein (Urine) NEGATIVE NEGATIVE [facility] Comment:{PROTEIN {[id number]) Nitrite (Urine) NEGATIVE NEGATIVE [facility] Comment:{NITRITE {[id number]) Leukocyte esterase (Urine) NEGATIVE NEGATIVE [facility] Comment:{LEUKOCYTE ESTERASE {[id number]) WBC (Urine) NONE SEEN < OR = 5 /HPF [facility] Comment:{WBC {[id number]) RBC (Urine Sed) NONE SEEN < OR = 2 /HPF [facility] Comment:{RBC {[id number]) Epithelial cells.squamous (Urine sed) 0-5 < OR = 5 /HPF [facility] Comment:{SQUAMOUS EPITHELIAL CELLS {[id number]) Bacteria (Urine) NONE SEEN NONE SEEN /HPF [facility] Comment:{BACTERIA {[id number]) Hyaline casts (Urine sed) NONE SEEN NONE SEEN /LPF [facility] Comment:{HYALINE CAST {[id number]) Service comment 01 SEE NOTE [facility] Comment: {COMMENTS {[id number]) The above test was performed; ??evaluate the urinalysis results with caution. ??The urine specimen was received without a preservative. ??Deterioration of formed elements and/or alteration of chemical constituents may have occurred. 12/15/2014 11:1 4 AM EDT 12/15/2014 10:17 PM EDT Narrative Resulting Agency Comment [id number] Alison Francis MD LAB SAME DAY RESULT Final Resul t [facility] [address] [place] [address] * MAMMOGRAM SCREENING , BILATERAL FC (11/10/2014 10:59 AM EDT) Only the most recent of3 resultswithin the time period is included. LETTER SENT A mammogram letter type B1 was mailed to patient Anatomical Region Laterality Modality BREAST Bilateral Mammography 11/11/2014 5:41 PM EDT Narrative 11/11/2014 5:41 PM EDT EXAMINATION: SCREENING MAMMOGRAM HISTORY: Routine screening TECHNIQUE: ??Digital Bilateral CAD software used during interpretation COMPARISON: ??2011, 2010 BREAST COMPOSITION: ??b. There are scattered areas of fibroglandular density. *#BDb#* FINDINGS: No suspicious dominant mass lesions, clustered microcalcifications, or areas of unexplained architectural distortion are seen in the breast(s). IMPRESSION: No evidence of malignancy. RECOMMENDATION: Annual screening mammography. BI-RADS: Category 1 - Negative *#B1#* RESULTS COMMUNICATED TO PATIENT: In a letter Procedure Note Joan Blackburn MD - 11/11/2014 EXAMINATION: SCREENING MAMMOGRAM HISTORY: Routine screening TECHNIQUE: Digital Bilateral CAD software used during interpretation COMPARISON: 2010 BREAST COMPOSITION: b. There are scattered areas of fibroglandular density. *#BDb#* FINDINGS: No suspicious dominant mass lesions, clustered microcalcifications, or areas of unexplained architectural distortion are seen in the breast(s). IMPRESSION: No evidence of malignancy. RECOMMENDATION: Annual screening mammography. BI-RADS: Category 1 - Negative *#B1#* RESULTS COMMUNICATED TO PATIENT: In a letter Alison Francis MD IMG MAMMO ORDERABLES Final Resu lt * XRAY FOOT COMPLETE MIN 3 VWS - RIGHT (DX: FOOT PAIN *NO INJURY* 719.47) (TODAY) FC (08/28/2013 11:47 AM EDT) Anatomical Region Laterality Modality LOWER EXTREMITY Radiographic Lamar ging 08/30/2013 11:4 2 AM EDT Narrative 08/30/2013 11:42 AM EDT Right foot. History foot pain prior surgery. Comparison 07/03/08. There is post surgical changes seen in the distal first metatarsal which include an orthopedic screw. The first metatarsophalangeal joint has a different appearance as compared to the prior study. Findings could be postoperative. However small erosion cannot be excluded. The patient status post osteotomy of the distal aspect of the fourth proximal phalanx. Hammertoe deformities are seen. No fracture or destructive lesion is seen. Procedure Note Ricco Nichole MD - 08/30/2013 Right foot. History foot pain prior surgery. Comparison 07/03/08. There is post surgical changes seen in the distal first metatarsal which include an orthopedic screw. The first metatarsophalangeal joint has a different appearance as compared to the prior study. Findings could be postoperative. However small erosion cannot be excluded. The patient status post osteotomy of the distal aspect of the fourth proximal phalanx. Hammertoe deformities are seen. No fracture or destructive lesion is seen. us Alison Francis MD IMG XRAY NO CONTRAST ORDERABLES Final Result * FOOT 3+ RT (01/17/2013 10:41 AM EDT) RADIOLOGY REPORT [facility] Department of Radiology [address] [place] [address], [address] Name: RENY ROSE : 36 Date of Service: 01/16/131657 Acct Number: [id number] Order Number: ??[id number] ?Location: [facility] Report Number: [id number] ?Service: [facility]/ Requesting Physician: Ricco Viramontes Category: RADIOLOGY ??[facility] Exam: FOOT 3 VIEWS ?? Right Signs/Symptoms: S/P FOOT SURGERY Report Status: Signed Right foot, 3 views. Portable at 1655 is available without previous exam. Postsurgical changes are present status post bunionectomy and osteotomy through the first metatarsal head medially. ??A compression screw spans the osteotomy site. ??Osteotomies through the head of the second and third as well as fourth proximal phalanges. ??Two K wires span the second and third digits. ??Irregularity of the soft tissues is likely postsurgical. ??There is linear density medial to the base of the first proximal phalanx, question foreign body versus calcifications. Impression: Postsurgical changes status post bunionectomy and osteotomies second third and fourth proximal phalanges. Interpreting Resident: Date/Time of Dictation: 01/17/13 1041 Approved Electronically By/Date: Johnny Gray 01/17/13 1041 [facility] Department of Radiology [address] [place] [address], [address] ? [phone] ? [facility] Anatomical Region Laterality Modality Other 01/17/2013 10:4 1 AM EDT Narrative 01/17/2013 10:42 AM EDT Reason for Study/History: Department of Radiology TEST(S) PROCESSED BY [facility] XRAY us Ricco Viramontes DPM IMAGING-[facility] Final Resul t * PATHOLOGY REPORT (01/16/2013 7:49 PM EDT) PATHOLOGY REPORT Surgical Pathology Report Specimen Number: [id number] Final Diagnosis Diagnosis: ??1. ??BONE, RIGHT FOOT #1. ??EXCISION. ?BENIGN LAMELLAR BONE WITH DEGENERATIVE CHANGES.. ?2. ??BONE, RIGHT FOOT #2. ??EXCISION. ?BENIGN LAMELLAR BONE WITH DEGENERATIVE CHANGES.. ?? Diagnosis Pathologist: ??Electronically Signed by: Shefali Cole MD Procedure Date: 01/16/2013 Specimen Received: 01/17/2013 Date of Diagnosis: 01/21/2013 Gross Description: ??1. ??The specimen is received fresh labeled with the patients name and ?bone, right foot and consists of a 1.7 x 1.4 x 0.4 cm portion of ?bone. ??The articular surface ranges from smooth to shaggy calloway white. ?Sectioning reveals calloway yellow homogeneous medullary bone. ??No ?discrete areas of softening are noted grossly. ??Rubber Chemist ?sections are submitted in cassette 1 following decalcification. ?2. ??The specimen is received fresh labeled with the patients name and ?bone right foot and consists of three irregular fragments of bone, ?each with a small amount of attached soft tissue ranging from 0.9 x ?0.9 x 0.3 cm up to 1.2 x 1.1 x 0.4 cm. ??The articular surfaces are ?predominantly smooth and the cut surfaces display unremarkable calloway ?yellow medullary bone. ??No discrete areas of softening are identified ?grossly. ??A livestock sales representative section of each is submitted in cassette 2 ?following decalcification. [facility] 01/16/2013 7:49 PM EDT 01/16/2013 7:49 PM EDT us Ricco Viramontes DPM LABORATORY Final Resul t Performing Organization Address City/[facility]/ZIP Co de Phone Number [facility] [address] [place] [address] * SM/HUMAN RESOURCES MANAGER MANUFACTURING ANTIBODY (12/04/2012 2:14 PM EDT) Wilson extractable nuclear Ab+Ribonucleopr otein extractable nuclear Ab <1.0 NEG <1.0 NEG AI [facility] Comment:{SM/HUMAN RESOURCES MANAGER MANUFACTURING ANTIBODY {[id number]) 12/04/2012 2:14 PM EDT 12/04/2012 11:10 PM EDT Narrative Resulting Agency Comment [id number] us Alison Francis MD LABORATORY Final Result [facility] [address] [place] [address] * (ABNORMAL) DNA (DS) ANTIBODY (12/04/2012 2:14 PM EDT) Dna (DS) Antibody 14(H) IU/mL [facility] Comment: {DNA (DS) ANTIBODY {[id number]) ? IU/mL ? Interpretation ? < or = 4 ?Negative ? 5-9 ? Indeterminate ? > or = 10 ?? Positive 12/04/2012 2:14 PM EDT 12/04/2012 11:10 PM EDT Narrative Resulting Agency Comment [id number] Alison Francis MD LABORATORY Final Result Performing Organization Address [facility] de Phone Number [facility] [address] [place] [address] * ZEENAT SCREEN IFA W/REFLEX TO TITER/PATTERN IFA (12/04/2012 2:14 PM EDT) ZEENAT IFA NEGATIVE NEGATIVE [facility] Comment:{ZEENAT SCREEN, IFA {[id number]) 12/04/2012 2:14 PM EDT 12/04/2012 11:10 PM EDT Narrative Resulting Agency Comment [id number] Alison Francis MD LABORATORY Final Result Performing Organization Address [facility] de Phone Number [facility] [address] [place] [address] * SED RATE (ESR) (11/29/2012 8:19 AM EDT) ESR (ERYTHROCYTE SEDIMENTATION RATE) 26 0 - 40 mm/hr [facility] 11/29/2012 8:19 AM EDT 11/29/2012 8:19 AM EDT Ricco LYONM LABORATORY Final Resul t Performing Organization Address [facility] de Phone Number [facility] [address] [place] [address] * URIC ACID (11/29/2012 8:19 AM EDT) URIC ACID, SERUM 6.0 2.5 - 7.1 mg/dL [facility] 11/29/2012 8:19 AM EDT 11/29/2012 8:19 AM EDT us Ricco Viramontes DPM LABORATORY Final Resul t [facility] [address] [place] [address] * CT CERV. SPINE W/O CONTRAST (08/29/2011 3:56 PM EDT) RADIOLOGY REPORT [facility] Department of Radiology [address] [place] [address], [address] Name: RENY ROSE : 36 Date of Service: 08/29/11 1527 Acct Number: [id number] Order Number: ??[id number] ?Location: [facility] Report Number: [id number] ?Service: REG ER/ Requesting Physician: Yobani Samaniego Category: COMPUTED TOMOGRAPHY ??[facility] Exam: CERVICAL SPINE W/O CONTRAST ?? Signs/Symptoms: Trauma Report Status: Signed Study: Unenhanced CT of the cervical spine Indication: Comparison: No pertinent prior studies Technique: Serial unenhanced axial images were obtained from the skull base to the thoracic inlet. ??Coronal and sagittal reconstructions were performed. Findings: No acute fracture is identified. ??The cervical spine is in anatomic alignment. ?? The vertebral body heights are maintained. ??There is degenerative change in cervical spine characterized by disc space narrowing, endplate sclerosis, and osteophytic change at C5-C6 as well as disk space narrowing at C6-C7. ??There is no spinal canal or neural foraminal narrowing. ??There is no prevertebral soft tissue swelling. ??The thyroid is heterogeneous. ??The visualized right lung apex is clear. ?? Impression: No acute fracture or subluxation. ??Degenerative disease as described above. vice president of academic affairs: Long Sanchez M.D. Interpreting Resident: Long Sanchez Date/Time of Dictation: 08/29/11 1556 Approved Electronically By/Date: Long Rucker 08/29/11 1616 [facility] Department of Radiology [address] [place] [address], [address] ? [phone] ? [facility] Anatomical Region Laterality Modality Other 08/29/2011 3:56 PM EDT Narrative 08/29/2011 4:17 PM EDT Reason for Study/History: Department of Radiology TEST(S) PROCESSED BY [facility] XRAY Yobani Samaniego IMAGING-[facility] Final Result * CT FACIAL W/O CONTRAST (08/29/2011 3:43 PM EDT) RADIOLOGY REPORT [facility] Department of Radiology [address] [place] [address], [address] Name: RENY ROSE : 36 Date of Service: 08/29/11 1527 Acct Number: [id number] Order Number: ??[id number] ?Location: [facility] Report Number: [id number] ?Service: REG ER/ Requesting Physician: Yobani Samaniego Category: COMPUTED TOMOGRAPHY ??[facility] Exam: FACIAL W/O CON ?? Signs/Symptoms: facial trauma ?? Report Status: Signed Study: CT of the facial bones without contrast. Indication: Facial trauma. Comparison: None. Technique: Serial axial images were obtained from the upper cervical vertebrae to a level just superior to the frontal sinuses without intravenous contrast. ??Coronal and sagittal reconstructions were then performed. Findings: No fracture is seen. ??The kim of the of the maxillary, frontal, ethmoid and sphenoid sinus chambers are intact bilaterally. ??The paranasal sinuses and mastoid air cells are clear. ??The middle ear cavities are clear with appropriate positioning of the ossicles. ??The temporal bones are intact. The roof, floor, superior and inferior orbital rims, and lateral wall of the orbits are intact bilaterally. ??There is deviation of the nasal septum to the right. Soft tissues overlying the facial bones appear normal. Impression: No fracture ADON: Long Sanchez M.D. Interpreting Resident: Long Sanchez Date/Time of Dictation: 08/29/11 1543 Approved Electronically By/Date: Long Rucker 08/29/11 1619 [facility] Department of Radiology [address] [place] [address], [address] ? [phone] ? [facility] Anatomical Region Laterality Modality Other 08/29/2011 3:43 PM EDT Narrative 08/29/2011 4:20 PM EDT Reason for Study/History: Department of Radiology TEST(S) PROCESSED BY [facility] XRAY us Yobani Samaniego IMAGING-[facility] Final Result * CT BRAIN W/O CONTRAST (08/29/2011 3:36 PM EDT) RADIOLOGY REPORT [facility] Department of Radiology [address] [place] [address], [address] Name: RENY ROSE : 36 Date of Service: 08/29/11 1524 Acct Number: [id number] Order Number: ??[id number] ?Location: [facility] Report Number: [id number] ?Service: REG ER/ Requesting Physician: Hossein Will Category: COMPUTED TOMOGRAPHY ??[facility] Exam: BRAIN W/O CONTRAST ?? Signs/Symptoms: Dizziness Report Status: Signed CT of the brain without contrast: Serial axial images are obtained from the skull base to the vertex. Coronal reconstructions were performed. ??No prior examinations for comparison. Findings:The attenuation pattern of the brain is within normal limits. ??No focal lesion, mass effect, or hemorrhage is seen. The bony structures are intact. Impression: No acute intracranial abnormality. Interpreting Resident: Date/Time of Dictation: 08/29/11 1536 Approved Electronically By/Date: Long Rucker 08/29/11 1536 [facility] Department of Radiology [address] [place] [address], [address] ? [phone] ? [facility] Anatomical Region Laterality Modality Other 08/29/2011 3:36 PM EDT Narrative 08/29/2011 3:37 PM EDT Reason for Study/History: Department of Radiology TEST(S) PROCESSED BY [facility] XRAY us Unknown Provider [facility] IMAGING-[facility] Final Resul t * CBC 5 PART DIFF (08/29/2011 12:23 PM EDT) WHITE BLOOD COUNT 8.7 3.9 - 11.0 x1000/uL [facility] RBC 4.67 3.70 - 5.10 mil/ul [facility] Hemoglobin 13.3 11.5 - 15.0 g/dL [facility] HCT (HEMATOCRIT) 39.1 34.0 - 44.0 % [facility] MCV 84 80 - 100 fL [facility] MCH 29 27 - 33 pg [facility] MCHC 34 31 - 36 g/dL [facility] RDW 12.5 11.4 - 14.4 % [facility] PLATELETS 224 150 - 450 x1000/uL [facility] MPV 9.2 7.0 - 11.0 fL [facility] NEUTROPHILS 61 42 - 76 % [facility] LYMPHOCYTE % 31 14 - 46 % [facility] MONOCYTE % 5 4 - 13 % [facility] EOSINOPHIL % 2 0 - 7 % [facility] BASOPHIL % 1 0 - 3 % [facility] NEUTROPHILS (#) 5.3 1.8 - 7.0 x1000/uL [facility] LYMPHOCYTES # 2.7 0.7 - 4.5 x1000/uL [facility] MONOCYTES # 0.4 0.1 - 0.8 x1000/uL [facility] EOSINOPHILS # 0.2 0.0 - 0.4 x1000/uL [facility] BASOPHILS # 0.1 0.0 - 0.2 x1000/uL [facility] 08/29/2011 12:2 3 PM EDT 08/29/2011 12:23 PM EDT Yobani Rinaldi Samaniego LABORATORY Final Result Performing Organization Address [facility] Co de Phone Number [facility] [address] [place] [address] * PTT(PART THROM TIME) (08/29/2011 12:23 PM EDT) PTT (PARTIAL THROMBOPLASTIN TIME) 26.8 sec [facility] Comment: Normal: ? 25.0-35.0 Therapeutic: ??50.0-90.0 08/29/2011 12:2 3 PM EDT 08/29/2011 12:23 PM EDT Yobani Samaniego LABORATORY Final Result Performing Organization Address [facility] Co de Phone Number [facility] [address] [place] [address] * (ABNORMAL) PROTHROMBIN TIME (08/29/2011 12:23 PM EDT) PT (PROTHROMBIN TIME) 10.4 9.1 - 12.0 sec [facility] INR 1.0(L) 2.0 - 3.5 [facility] Comment: INR reference interval applies to patients on anticoagulant therapy. ??Suggested INR therapeutic range for oral anticoagulant therapy:(Stabilized anticoagulated patients) ?Routine Therapy: ? 2.0-3.0 ?Recurrent Myocardial Infarction or ?Mechanical Prosthetic Valves: ?2.5-3.5 08/29/2011 12:2 3 PM EDT 08/29/2011 12:23 PM EDT Yobani Samaniego LABORATORY Final Result Performing Organization Address [facility] de Phone Number [facility] [address] [place] [address] * URINALYSIS,C&S IF INDICATED (08/29/2011 12:23 PM EDT) COLOR (URINE) YELLOW [facility] APPEARANCE (URINE) CLEAR [facility] GLUCOSE (URINE) NEGATIVE Negative mg/dL [facility] BILIRUBIN (URINE) NEGATIVE Negative [facility] Ketones (Urine) NEGATIVE Negative mg/dL [facility] SPECIFIC GRAVITY 1.015 1.005 - 1.030 [facility] BLOOD (URINE) NEGATIVE Negative [facility] PH (URINE) 7.5 5.0 - 8.0 [facility] PROTEIN (URINE) NEGATIVE Neg-Trace mg/dL [facility] UROBILINOGEN 0.2 0.2 - 1.0 mg/dL [facility] NITRITE (URINE) NEGATIVE Negative [facility] WBC (URINE) NEGATIVE Negative [facility] Microscopic (Urine) [facility] Comment:Microscopic not jere cated Culture Indication NO [facility] 08/29/2011 12:2 3 PM EDT 08/29/2011 12:23 PM EDT Yobani Samaniego LABORATORY Final Result Performing Organization Address [facility] Co de Phone Number [facility] [address] [place] [address] * (ABNORMAL) BASIC METABOLIC PANEL (08/29/2011 12:23 PM EDT) Only the most recent of2 resultswithin the time period is included. Glucose 101(H) Fastin-99 mg/dL [facility] BUN 19 5 - 26 mg/dL [facility] CREATININE 0.73 0.5 - 1.5 mg/dL [facility] BUN/Creatinine Ratio 26 8 - 27 [facility] GLOM FILT RATE, EST 81.7 >59 mL/min [facility] IF -HELENE N 94.7 >59 mL/min [facility] SODIUM 137 134 - 144 mEq/L [facility] POTASSIUM 3.1(L) 3.5 - 5.5 mEq/L [facility] CHLORIDE 101 96 - 109 mEq/L [facility] CARBON DIOXIDE 25 20 - 32 mEq/L [facility] ANION GAP 11.0 8 - 12 [facility] CALCIUM 9.3 8.6 - 10.2 mg/dL [facility] 08/29/2011 12:2 3 PM EDT 08/29/2011 12:23 PM EDT Yobani Samaniego LABORATORY Final Result Performing Organization Address [facility] Co de Phone Number [facility] [address] [place] [address] * (ABNORMAL) BASIC METABOLIC PANEL W/GLOMERULAR FILTRATION RATE (EGFR) (05/26/2011 8:47 AM EST) Only the most recent of3 resultswithin the time period is included. Glucose 99 65 - 99 mg/dL [facility] Comment: {GLUCOSE {[id number]) ? Fasting reference interval Urea Nitrogen Blood (BUN) 31(H) 7 - 25 mg/dL [facility] Comment:{UREA NITROGEN (BUN) {[id number]) Creatinine 1.33(H) 0.60 - 0.93 mg/dL [facility] Comment: {CREATININE {[id number]) For patients >49 years of age, the reference limit for Creatinine is approximately 13% higher for people identified as -Mexican. GFR 40(L) > OR = 60 mL/min/1. 73m2 [facility] Comment:{eGFR NON-AFR. AMERI CAN {[id number]) GFR () 46(L) > OR = 60 mL/min/1. 73m2 [facility] Comment:{eGFR AMERIC AN {[id number]) BUN/Creatinine Ratio 23(H) 6 - 22 (calc) [facility] Comment:{BUN/CREATININE RATI O {[id number]) Sodium 140 135 - 146 mmol/L [facility] Comment:{SODIUM {[id number]) Potassium 3.9 3.5 - 5.3 mmol/L [facility] Comment:{POTASSIUM {[id number]) Chloride 107 98 - 110 mmol/L [facility] Comment:{CHLORIDE {[id number]) Carbon dioxide 21 21 - 33 mmol/L [facility] Comment:{CARBON DIOXIDE {[id number]) Calcium 9.9 8.6 - 10.4 mg/dL [facility] Comment:{CALCIUM {[id number]) 05/26/2011 8:47 AM EST 05/26/2011 12:22 [...] needs for GFR calculation. Resulting Agency Comment [id number] us Alison Francis MD LABORATORY Final Result [facility] [address] [place] [address] * (ABNORMAL) LIPID PANEL + CARDIAC RISK WITH REFLEX TO LDL DIRECT (05/26/2011 8:47 AM EST) Only the most recent of3 resultswithin the time period is included. Cholesterol 233(H) 125 - 200 mg/dL [facility] Comment:{CHOLESTEROL, TOTAL {[id number]) HDL Cholesterol 59 > OR = 46 mg/dL [facility] Comment:{HDL CHOLESTEROL {[id number]) Triglyceride 113 <150 mg/dL [facility] Comment:{TRIGLYCERIDES {[id number]) LDL Cholesterol 151(H) <130 mg/dL (calc) [facility] Comment: {LDL-CHOLESTEROL {[id number]) Desirable range <100 mg/dL for patients with CHD or diabetes and <70 mg/dL for diabetic patients with known heart disease. CHOL/HDL Ratio 3.9 < OR = 5.0 (calc) [facility] Comment:{CHOL/HDLC RATIO {[id number]) 05/26/2011 8:47 AM EST 05/26/2011 12:22 PM EST Narrative Resulting Agency Comment [id number] us Alison Francis MD LABORATORY Final Result [facility] [address] [place] [address] * CBC 5 PART DIFF (05/26/2011 8:47 AM EST) Only the most recent of7 resultswithin the time period is included. WBC 6.6 3.8 - 10.8 Thousand/u L [facility] Comment:{WHITE BLOOD CELL CO UNT {[id number]) RBC 4.88 3.80 - 5.10 Million/uL [facility] Comment:{RED BLOOD CELL COUN T {[id number]) Hemoglobin 14.5 11.7 - 15.5 g/dL [facility] Comment:{HEMOGLOBIN {[id number]) Hematocrit 43.0 35.0 - 45.0 % [facility] Comment:{HEMATOCRIT {[id number]) MCV 88.0 80.0 - 100.0 fL [facility] Comment:{MCV {[id number]) MCH 29.6 27.0 - 33.0 pg [facility] Comment:{MCH {[id number]) MCHC 33.7 32.0 - 36.0 g/dL [facility] Comment:{MCHC {[id number]) RDW 13.4 11.0 - 15.0 % [facility] Comment:{RDW {[id number]) PLT 236 140 - 400 Thousand/u L [facility] Comment:{PLATELET COUNT {[id number]) MPV 8.7 7.5 - 11.5 fL [facility] Comment:{MPV {[id number]) Neutrophils # 4382 1500 - 7800 cells/uL [facility] Comment:{ABSOLUTE NEUTROPHIL S {[id number]) Lymphocytes # 1604 850 - 3900 cells/uL [facility] Comment:{ABSOLUTE LYMPHOCYTE S {[id number]) Monocytes # 436 200 - 950 cells/uL [facility] Comment:{ABSOLUTE MONOCYTES {[id number]) Eosinophils # 132 15 - 500 cells/uL [facility] Comment:{ABSOLUTE EOSINOPHIL S {[id number]) Basophils # 46 0 - 200 cells/uL [facility] Comment:{ABSOLUTE BASOPHILS {[id number]) Neutrophils % 66.4 % [facility] Comment:{NEUTROPHILS {[id number]) Lymphocytes % 24.3 % [facility] Comment:{LYMPHOCYTES {[id number]) Monocytes % 6.6 % [facility] Comment:{MONOCYTES {[id number]) Eosinophils % 2.0 % [facility] Comment:{EOSINOPHILS {[id number]) Basophils % 0.7 % [facility] Comment:{BASOPHILS {[id number]) 05/26/2011 8:47 AM EST 05/26/2011 12:22 PM EST Narrative Resulting Agency Comment [id number] us Alison Francis MD LAB SAME DAY RESULT Final Resul t [facility] [address] [place] [address] * ASPARTATE AMINOTRANSFERASE (AST), SERUM (05/26/2011 8:47 AM EST) Only the most recent of3 resultswithin the time period is included. AST (SGOT) 26 10 - 35 U/L [facility] Comment:{AST {[id number]) 05/26/2011 8:47 AM EST 05/26/2011 12:22 PM EST Narrative Resulting Agency Comment [id number] us Alison Francis MD LAB SAME DAY RESULT Final Resul t Performing Organization Address [facility] Co de Phone Number [facility] [address] [place] [address] * TSH (THYROTROPIN) (05/26/2011 8:47 AM EST) Only the most recent of4 resultswithin the time period is included. TSH 2.04 0.40 - 4.50 mIU/L [facility] Comment:{TSH {[id number]) 05/26/2011 8:47 AM EST 05/26/2011 12:22 PM EST Narrative Resulting Agency Comment [id number] us Alison Francis MD LABORATORY Final Result Performing Organization Address [facility] de Phone Number [facility] [address] [place] [address] * T4, FREE THYROXINE (05/26/2011 8:47 AM EST) Only the most recent of4 resultswithin the time period is included. FT4 1.1 0.8 - 1.8 ng/dL [facility] Comment:{T4, FREE {[id number]) 05/26/2011 8:47 AM EST 05/26/2011 12:22 PM EST Narrative Resulting Agency Comment [id number] us Alison Francis MD LABORATORY Final Result Performing Organization Address [facility] de Phone Number [facility] [address] [place] [address] * (ABNORMAL) VITAMIN D, 25-HYDROXY, LC/MS/MS (05/26/2011 8:47 AM EST) Only the most recent of4 resultswithin the time period is included. Vitamin D, 25-OH, Total 26(L) 30 - 100 ng/mL [facility] Comment:{VITAMIN D, 25 OH, T OTAL {[id number]) Vitamin D, D3 (Cholecalciferol ) 26 ng/mL [facility] Comment:{VITAMIN D, 25 OH, D 3 {[id number]) Vitamin D, 25-OH, D2 (Calciferol) <4 ng/mL [facility] Comment: {VITAMIN D, 25 OH, D2 {[id number]) ? 25-OHD3 indicates both endogenous production and [...] 12:22 PM EST Narrative Resulting Agency Comment [id number] us Alison Francis MD LABORATORY Final Result Performing Organization Address [facility] Co de Phone Number [facility] [address] [place] [address] * CONSULT RHEUMATOLOGY FC (10/22/2010) us Alison Francis MD REFERRAL Final Result * ALANINE AMINOTRANSFERASE (ALT), SERUM (02/15/2010) Only the most recent of2 resultswithin the time period is included. ALT (SGPT) 20 6 - 40 U/L [facility] 02/15/2010 02/15/2010 6:0 8 PM EST us Alison Francis MD LAB SAME DAY RESULT Final Resul t Performing Organization Address [facility] Co de Phone Number [facility] [address] [place] [address] * VITAMIN B12 (02/15/2010) Only the most recent of2 resultswithin the time period is included. VITB12 352 200 - 1100 PG/ML [facility] 02/15/2010 02/15/2010 6:0 8 PM EST us Alison Francis MD LABORATORY Final Result [facility] [address] [place] [address] * SCREENING DIGITAL MAMMOGRAPHY BILATERAL (08/29/2008 9:14 AM EDT) Pathologist [facility] RADIOLOGY REPORT Digital Bilateral Screening Mammograms: This mammogram was interpreted with the assistance of a computer aided detection (CAD) system. No dominant mass lesion or suspicious calcification. Compared to 2005, 2007 mammograms, 4 mm circumscribed benign appearing opacity central retroareolar left, likely stable but of differing conspicuity due to ??modalities. Impression: Small benign type opacity retroareolar left. Suggest 6 month reevaluation. A letter (C) in lay language describing the results will follow this report. The FDA, in accordance with the Mammography Quality Standards Act, requires that this letter be sent to the patient by the interpreting radiologist. BI-RADS Category 3: Probably Benign Finding - follow-up Suggested *#C6P#* LETTER SENT A mammogram letter type C6P was mailed to patient Anatomical Region Laterality Modality Other 08/29/2008 9:14 AM EDT Narrative 09/08/2008 6:33 PM EDT Reason for Study/History: routine TEST(S) PROCESSED BY [facility] AT [facility] us Alison Francis MD GENERAL IMAGING- OTHER Final Re sult * (ABNORMAL) CARDIAC RISK/LIPID PROFILE I (08/15/2008) Only the most recent of4 resultswithin the time period is included. CHOLESTEROL, TOTAL 238(H) 125 - 200 MG/DL TRIGLYCERIDES 145 30 - 149 MG/DL HDL-CHOLESTEROL 58 40 - 77 MG/DL LDL-CHOLESTEROL 151(H) 62 - 130 MG/DL Comment: RISK CATEGORY: ??LDL-CHOLESTEROL GOAL CHD AND CHD RISK EQUIVALENTS: ??<100 MULTIPLE (2+) FACTORS: ??<130 ZERO TO ONE RISK FACTOR: ??<160 CHD RELATIVE RISK RATIO (TOTAL/HDL) 4.10 0.0 - 5.0 Comment:(0.9 X AVERAGE) 08/15/2008 08/15/2008 5:5 3 PM EDT us Alison Francis MD LABORATORY Final Result * (ABNORMAL) BASIC METABOLIC PANEL (08/15/2008) Only the most recent of5 resultswithin the time period is included. CALCIUM 9.1 8.6 - 10.2 MG/DL BUN 28(H) 7 - 25 MG/DL CREATININE 0.84 0.63 - 1.22 MG/DL BUN/Creatinine Ratio 33(H) 6 - 25 Glucose 92 65 - 99 MG/DL SODIUM 138 135 - 146 MMOL/L POTASSIUM 3.9 3.5 - 5.3 MMOL/L CHLORIDE 105 98 - 110 MMOL/L CARBON DIOXIDE 20(L) 21 - 33 MMOL/L 08/15/2008 08/15/2008 5:5 3 PM EDT us Alison Francis MD LAB SAME DAY RESULT Final Resul t * MAGNESIUM (08/15/2008) Pathologist [facility] MAGNESIUM 2.0 1.5 - 2.5 MG/DL 08/15/2008 08/15/2008 5:5 3 PM EDT us Alison Francis MD LABORATORY Final Result * XRAY FOOT COMPLETE MIN 3 VWS - RIGHT (07/03/2008 8:43 AM EDT) RADIOLOGY REPORT PROVIDED CLINICAL HISTORY: R ft ??drop dx pain TECHNIQUE: Three views of the right foot. We have no prior studies at this time for comparison. FINDINGS: There is mild hallux valgus deformity. There is otherwise no evidence of malalignment or dislocation. No fractures of the visualized bones. Joint spaces are maintained. ?? Soft tissues unremarkable. IMPRESSION: Mild hallux valgus. No acute abnormalities otherwise visualized. Anatomical Region Laterality Modality Other 07/03/2008 8:43 AM EDT Narrative 07/05/2008 7:39 PM EDT Reason for Study/History: RIGHT FOOT DROP ??AP/LAT/OBL TEST(S) PROCESSED BY [facility] AT [facility] us Paco Uribe DPM GENERAL IMAGING- OTHER Fin al Result * SCREENING MAMMOGRAPHY BILATERAL (TWO VIEW FILM STUDY OF EACH BREAST) (08/24/2007 1:33 PM EDT) RADIOLOGY REPORT Bilateral Screening Mammograms: This mammogram was interpreted with the assistance of the [employer] computer-aided detection (CAD) system. Some fibroglandular density is seen in each breast. No distinctly separable masses, suspicious calcification, or other abnormalities are seen in either breast. When compared to the prior mammogram of 06/03/2005 , no significant change has occurred. IMPRESSION: ?No changes of concern for malignancy. A letter (A) in lay language describing the results will follow this report. The FDA, in accordance with the Mammography Quality Standards Act, requires that this letter be sent to the patient by the interpreting radiologist. BI-RADS Category 1: Negative *#A N#* [facility] (CLIA# [id number]) LETTER SENT A mammogram letter type A N was mailed to patient [facility] (CLIA# [id number]) Anatomical Region Laterality Modality Other 08/24/2007 1:33 PM EDT Narrative 08/29/2007 10:51 AM EDT Reason for Study/History: routine -- overdue TEST(S) PROCESSED BY [facility] AT [employer] us Alison Francis MD GENERAL IMAGING- OTHER Final Re sult * CYTOLOGY/PATHOLOGY UNSPECIFIED (06/23/2007) Narrative Transcriptions [facility], Unknown Provider - 07/10/2007 12:00 AM EDT us Unknown Provider [facility] PATHOLOGY Final Resu lt * UNSPECIFIED MAJOR PROCEDURE (06/22/2007) Narrative Transcriptions [facility], Unknown Provider - 07/09/2007 12:00 AM EDT us Unknown Provider [facility] PROCEDURES Final Resu lt * MRI LUMBAR SPINE (06/06/2007 2:04 AM EDT) RADIOLOGY REPORT EXAM: MRI of the lumbar spine. INDICATION: Sciatica with right foot drop. TECHNIQUE: Routine protocol. 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 The maintenance machinist image also shows several ??areas of increased T2 signal within both kidneys. These are likely to represent multiple cysts however, correlation with renal ultrasound would be suggested. Coronal maintenance machinist image shows mild dextroscoliosis in the mid lumbar region. At L5-S1, there is mild disc degeneration and desiccation with circumferential disc bulge lateralizing slightly to the left. No disc herniation or neural impingement is identified. At L4-L5, there is a right lateral and paracentral disc herniation extrusion with disc material extending cephalad to the disc space and extending into the lateral recess. This probably causes some impingement on the descending L4 nerve root. Some disc material may also cause ??impingement on the budding and descending right L5 nerve root. Clinical correlation is recommended. There is no disc herniation or neural impingement on the left. At L3-L4, there is severe disc degeneration with endplate changes and Schmorl''s node deformity. There is mild circumferential disc bulge with no focal disc herniation, spinal stenosis or neural impingement. At L2-L3, there is disc degeneration and desiccation with Schmorl''s node in the superior endplate of L3. There is mild circumferential disc bulge which lateralizes slightly to the left of midline. There is no significant mass-effect on the thecal sac, spinal stenosis or exiting nerve roots. At L1-L2, there are Schmorl''s nodes on both sides of the disc space with some edema in the endplates. This suggests recent Schmorl''s node which can be associated with significant back pain. There is mild circumferential disc bulge without evidence of spinal stenosis or overt neural impingement. Impression: Right paracentral and lateral disc herniation extrusion at L4-L5 with extruded fragment extending cephalad to the disc space occupying the lateral recess. There may be impingement on both theL4 and L5 nerve roots. Multilevel disc degeneration elsewhere as described above. Probable cystic change in both kidneys. Consider correlation with renal ultrasound. [facility] (CLIA# [id number]) Anatomical Region Laterality Modality Other 06/06/2007 2:0 4 AM EDT Narrative 06/08/2007 4:11 PM EDT Reason for Study/History: SCIATICA PAIN TO LEG WITH RT FOOT DROP TEST(S) PROCESSED BY [facility] AT [facility] Regan Darling MD GENERAL IMAGING- OTHER Final Result * XRAY SPINE LUMBOSACRAL AP & LAT (05/25/2007 12:29 PM EST) Only the most recent of3 resultswithin the time period is included. RADIOLOGY REPORT Examination: Multiple views of the lumbar spine. Indication: Sciatica. Technique: Multiple views were obtained of the lumbar spine. Findings: Mild dextrocurvature at the L3-L4 level where a rather severe degenerative disc disease. Diffuse degenerative disc disease is present reflected as disc space narrowing and osteophytosis. Vascular calcifications of the aorta. Impression: Diffuse degenerative disc disease is present reflected as disc space narrowing and osteophytosis most pronounced at L3-L4. Mild sclerosis of the left sacroiliac joint. [facility] (CLIA# [id number]) Anatomical Region Laterality Modality Other 05/25/2007 12:2 9 PM EST Narrative 05/26/2007 10:29 AM EST Reason for Study/History: SCIATICA TEST(S) PROCESSED BY [facility] AT [facility] Regan Darling MD GENERAL IMAGING- OTHER Final Result * (ABNORMAL) CBC W/O DIFFERENTIAL (04/09/2007) WHITE BLOOD COUNT 5.4 3.8 - 10.8 THOUS/UL [facility] (CLIA# [id number]) RBC 5.18(H) 3.80 - 5.10 MIL/UL [facility] (CLIA# [id number]) Hemoglobin 15.2 11.7 - 15.5 G/DL [facility] (CLIA# [id number]) HCT (HEMATOCRIT) 44.4 35.0 - 45.0 % [facility] (CLIA# [id number]) MCV 85.8 80.0 - 100.0 FL [facility] (CLIA# [id number]) MCH 29.4 27.0 - 33.0 PG [facility] (CLIA# [id number]) MCHC 34.3 32.0 - 36.0 G/DL [facility] (CLIA# [id number]) PLATELETS 236 140 - 400 THOUS/UL [facility] (CLIA# [id number]) RDW 13.0 11.0 - 15.0 % [facility] (CLIA# [id number]) MPV 7.9 7.5 - 11.5 FL [facility] (CLIA# [id number]) 04/09/2007 04/09/2007 3:2 4 PM EST Regan Darling MD LABORATORY Final Result [facility] (CLIA# [id number]) [address] [place] [address] * THYROID CASCADE (04/09/2007) TSH, THYROTROPIN 1.38 0.40 - 4.50 UIU/ML [facility] (CLIA# [id number]) 04/09/2007 04/09/2007 3:2 4 PM EST Regan Darling MD LABORATORY Final Result Performing Organization Address City/[facility]/ZIP Co de Phone Number [facility] (CLIA# [id number]) [address] [place] [address] * (ABNORMAL) URINALYSIS, COMPLETE (DIP & MICRO) (04/09/2007) COLOR (URINE) YELLOW YELLOW [facility] (CLIA# [id number]) APPEARANCE (URINE) TURBID(A) CLEAR [facility] (CLIA# [id number]) SPECIFIC GRAVITY 1.028 1.001 - 1.035 [facility] (CLIA# [id number]) PH (URINE) 5.5 5.0 - 8.0 [facility] (CLIA# [id number]) PROTEIN (URINE) NEG NEG [facility] (CLIA# [id number]) GLUCOSE (URINE) NEG NEG [facility] (CLIA# [id number]) Ketones (Urine) NEG NEG [facility] (CLIA# [id number]) BILIRUBIN (URINE) NEG NEG [facility] (CLIA# [id number]) BLOOD (URINE) NEG NEG [facility] (CLIA# [id number]) WBC (URINE) NEG NEG [facility] (CLIA# [id number]) NITRITE (URINE) NEG NEG [facility] (CLIA# [id number]) WBC (URINE) 0-4 0-4/HPF [facility] (CLIA# [id number]) RBC (Urine Sed) 0 0-3/HPF [facility] (CLIA# [id number]) EPITHELIAL CELLS.SQUAMOUS (URINE SED) 0 0-5/HPF [facility] (CLIA# [id number]) EPITHELIAL CELLS.TRANSITIO NAL (URINE SED) 0 0-5/HPF [facility] (CLIA# [id number]) EPITHELIAL CELLS.RENAL (URINE SED) 0 0-3/HPF [facility] (CLIA# [id number]) BACTERIA (URINE) NONE SEEN NONE SEEN [facility] (CLIA# [id number]) 04/09/2007 04/09/2007 3:2 4 PM EST us Regan Darling MD LAB SAME DAY RESULT Final Re sult [facility] (CLIA# [id number]) [address] [place] [address] * GASTROENTEROLOGY TEST/PROCEDURE, UNSPECIFIED (04/07/2006 12:00 AM EST) Narrative Transcriptions Eleonora Taylor MD - 08/27/2008 12:00 AM EDT Eleonora Taylor MD PROCEDURES Final Result * (ABNORMAL) CHEMISTRY PANEL CP-7 (09/26/2005 10:00 AM EDT) CALCIUM 9.9 8.5 - 10.4 MG/DL [facility] (CLIA# [id number]) BUN 24 7 - 25 MG/DL [facility] (CLIA# [id number]) CREATININE 0.8 0.5 - 1.2 MG/DL [facility] (CLIA# [id number]) BUN/Creatinine Ratio 30(H) 6 - 25 [facility] (CLIA# [id number]) Glucose 92 65 - 99 MG/DL [facility] (CLIA# [id number]) SODIUM 140 135 - 146 MMOL/L [facility] (CLIA# [id number]) POTASSIUM 3.7 3.5 - 5.3 MMOL/L [facility] (CLIA# [id number]) CHLORIDE 100 98 - 110 MMOL/L [facility] (CLIA# [id number]) CARBON DIOXIDE 25 21 - 33 MMOL/L [facility] (CLIA# [id number]) 09/26/2005 10:0 0 AM EDT 09/26/2005 7:47 PM EDT Regan Darling MD LABORATORY Final Result [facility] (CLIA# [id number]) [address] [place] [address] * TSH, THYROTROPIN (06/17/2005 9:16 AM EST) TSH, THYROTROPIN 1.4 0.3 - 5.5 UIU/ML [facility] (CLIA# [id number]) 06/17/2005 9:16 AM EST 06/17/2005 9:16 AM EST Narrative [facility] (CLIA# [id number]) - 06/17/2005 9:16 AM EST FASTING Regan Darling MD LABORATORY Final Result [facility] (CLIA# [id number]) [address] [place] [address] * (ABNORMAL) URINALYSIS (06/17/2005 9:16 AM EST) Only the most recent of2 resultswithin the time period is included. COLOR (URINE) YELLOW YELLOW- [facility] (CLIA# [id number]) APPEARANCE (URINE) CLEAR CLEAR- [facility] (CLIA# [id number]) SPECIFIC GRAVITY 1.026 [facility] (CLIA# [id number]) Comment:Reference Range: 1.0 01-1.035 PH (URINE) 6.0 5.0 - 8.0 [facility] (CLIA# [id number]) PROTEIN (URINE) NEG NEG- [facility] (CLIA# [id number]) GLUCOSE (URINE) NEG NEG- [facility] (CLIA# [id number]) Ketones (Urine) TRACE(A) NEG- [facility] (CLIA# [id number]) BILIRUBIN (URINE) NEG NEG- [facility] (CLIA# [id number]) BLOOD (URINE) NEG NEG- [facility] (CLIA# [id number]) WBC (URINE) TRACE(A) NEG- [facility] (CLIA# [id number]) NITRITE (URINE) NEG NEG- [facility] (CLIA# [id number]) WBC (URINE) 6-10(A) 0-4/HPF [facility] (CLIA# [id number]) RBC (Urine Sed) 0 0-3/HPF [facility] (CLIA# [id number]) EPITHELIAL CELLS.SQUAMOUS (URINE SED) 0 0-5/HPF [facility] (CLIA# [id number]) EPITHELIAL CELLS.TRANSITION AL (URINE SED) 0 0-5/HPF [facility] (CLIA# [id number]) EPITHELIAL CELLS.RENAL (URINE SED) 0 0-3/HPF [facility] (CLIA# [id number]) BACTERIA (URINE) NONE SEEN NONE SEEN- [facility] (CLIA# [id number]) Microscopic Other (Urine) FEW MUCOUS(A) [facility] (CLIA# [id number]) 06/17/2005 9:16 AM EST 06/17/2005 9:16 AM EST Narrative [facility] (CLIA# [id number]) - 06/17/2005 9:16 AM EST FASTING Regan Darling MD LABORATORY Final Result [facility] (CLIA# [id number]) [address] [place] [address] * (ABNORMAL) CARDIAC RISK/LIPID PROFILE I (06/17/2005 9:16 AM EST) CHOLESTEROL, TOTAL 211(H) 100 - 199 MG/DL [facility] (CLIA# [id number]) TRIGLYCERIDES 168(H) 30 - 149 MG/DL [facility] (CLIA# [id number]) HDL-CHOLESTEROL 48 40 - 77 MG/DL [facility] (CLIA# [id number]) LDL-CHOLESTEROL 129 62 - 130 MG/DL [facility] (CLIA# [id number]) Comment: RISK CATEGORY: ??LDL-CHOLESTEROL GOAL CHD AND CHD RISK EQUIVALENTS: ??<100 MULTIPLE (2+) FACTORS: ??<130 ZERO TO ONE RISK FACTOR: ??<160 CHD RELATIVE RISK RATIO (TOTAL/HDL) 4.40 [facility] (CLIA# [id number]) Comment:(1.0 X AVERAGE) 06/17/2005 9:16 AM EST 06/17/2005 9:16 AM EST Narrative [facility] (CLIA# [id number]) - 06/17/2005 9:16 AM EST FASTING Regan Darling MD LABORATORY Final Result [facility] (CLIA# [id number]) [address] [place] [address] * DUAL ENERGY DEXA BONE DENSITY ONE/MORE SITES AXIAL SKEL (06/08/2005 9:13 AM EST) Only the most recent of2 resultswithin the time period is included. RADIOLOGY REPORT Bone densitometry: Average BMD of L1-L4 = 0.749 g/cm2. This value is 89 % of age matched peers, or -0.8 S.D., and 71 % of young adult peak bone mass, or -2.7 S.D. This is compared with BMD of 0.779 g/cm2 on 09/08/1998 , or a -3.9 % change. Total BMD of the left hip = 0.801 g/cm2. This value is 103 % of age matched peers, or 0.2 S.D., and 85 % of young adult peak bone mass, or -1.2 S.D. This is compared with BMD of 0.816 g/cm2 on 09/08/1998 , or a -1.9 % change. IMPRESSION: Osteoporosis lumbar spine. Osteopenia left hip. When compared to 09/08/1998 there has been a statistically significant decrease in bone mineral density of the lumbar spine and no statistically significant change in the left hip. [facility] (CLIA# [id number]) Anatomical Region Laterality Modality Other 06/08/2005 9:13 AM EST Narrative 06/13/2005 4:05 PM EST Reason for Study/History: ROUTINE Test(s) processed by : [facility] Regan Darling MD GENERAL IMAGING- OTHER Final Result * SCREENING MAMMOGRAPHY BILATERAL (TWO VIEW FILM STUDY OF EACH BREAST) (06/03/2005 2:19 PM EST) Only the most recent of2 resultswithin the time period is included. RADIOLOGY REPORT Bilateral mammogram Residual fibroglandular tissue present bilaterally. No dominant mass lesion or suspicious calcification. Compared to prior mammograms, no interval change. Impression: No radiographic evidence to suggest malignancy. A letter (A) in lay language describing the results will follow this report. ??The FDA, in accordance with the mammography Standards Act, requires that this letter be sent to the patient by the interpreting radiologist.. BI-RADS Category 1: Negative. 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 There is mild superior narrowing bilaterally and subchondral cystic changes with small osteophytes of all the superior and inferior right femoral head Impression: Degenerative disease and no evidence of acute fracture. [facility] (CLIA# [id number]) Anatomical Region Laterality Modality Other 06/03/2005 1:44 PM EST Narrative 06/07/2005 1:43 PM EST Reason for Study/History: chiro - cervical -dorsal -lumbopelvic-ac salamatof lbp /neck & mid back stiffness Test(s) processed by : [facility] Regan Reynolds GENERAL IMAGING- OTHER Final R esult * XRAY SPINE THORACIC AP & LAT (06/03/2005 1:43 PM EST) RADIOLOGY REPORT Two views of the thoracic spine demonstrate mild degenerative changes characterized by multilevel anterior and lateral osteophytes seen at the midthoracic spine with no evidence of acute fracture, dislocation or spondylolisthesis . There is mild scoliosis. Impression: Scoliosis and mild degenerative changes. [facility] (CLIA# [id number]) Anatomical Region Laterality Modality Other 06/03/2005 1:43 PM EST Narrative 06/07/2005 1:42 PM EST Reason for Study/History: chiro - cervical -dorsal -lumbopelvic-ac salamatof lbp /neck & mid back stiffness Test(s) processed by : [facility] IMAGING- OTHER Final R esult * XRAY SPINE CERVICAL AP & LAT (06/03/2005 1:43 PM EST) RADIOLOGY REPORT Three views of the cervical spine demonstrate no evidence of acute fracture or dislocation. There is minimal retrolisthesis of C5 on C6 with loss of intervertebral disc space height at C5-C6 and C6-C7. The prevertebral soft tissues are unremarkable. The top of the dens and the lateral masses are obscured by the base of the skull. Impression: Degenerative changes with no evidence of acute fracture. [facility] (CLIA# [id number]) Anatomical Region Laterality Modality Other 06/03/2005 1:43 PM EST Narrative 06/07/2005 1:43 PM EST Reason for Study/History: chiro - cervical -dorsal -lumbopelvic-ac salamatof lbp /neck & mid back stiffness Test(s) processed [facility] : [facility]- OTHER Final R esult * STREP SCREEN CULTURE (GROUP A) (12/03/1999 2:17 PM EDT) REPORT STATUS: Final [facility] (CLIA# [id number]) STREPTOCOCCUS PYOGENES (GROUP A) CULTURE [facility] (CLIA# [id number]) Comment:No Group A Strep iso lated 12/03/1999 2:17 PM EDT 12/05/1999 7:28 AM EDT us Long Smith MD LABORATORY Final Resul t [facility] (CLIA# [id number]) [address] [place] [address] * XRAY CHEST 2 VIEWS PA & LAT (05/13/1999 10:00 AM EST) Only the most recent of3 resultswithin the time period is included. Pathologist [facility] RADIOLOGY REPORT Chest: The heart is mildly enlarged but there is no failure. The lungs are clear and sulci are sharp. Findings described on 03/16/99 and 04/02/99 have improved. [facility] (CLIA# [id number]) Anatomical Region Laterality Modality Other 05/13/1999 10:0 0 AM EST Narrative 05/20/1999 10:29 AM EST Reason for Study/History: FOLLOW-UP PNEUMONIA Test(s) processed by : [facility] us Chalino Lino MD GENERAL IMAGING- OTHER Fin al Result * (ABNORMAL) CBC 5 PART DIFF (02/22/1999 2:51 AM EST) Only the most recent of4 resultswithin the time period is included. Pathologist [facility] SMEAR REVIEW [facility] (CLIA# [id number]) WHITE BLOOD COUNT 7.0 3.8 - 10.1 K/mm3 [facility] (CLIA# [id number]) RBC 5.19(H) 3.90 - 5.10 M/mm3 [facility] (CLIA# [id number]) Hemoglobin 15.5 12.0 - 15.6 g/dl [facility] (CLIA# [id number]) HCT (HEMATOCRIT) 46.2(H) 35.0 - 45.0 % [facility] (CLIA# [id number]) MCV 89.1 81.0 - 96.0 um3 [facility] (CLIA# [id number]) MCHC 33.6 32.0 - 36.0 g/dL [facility] (CLIA# [id number]) RDW 11.9 11.4 - 14.4 % [facility] (CLIA# [id number]) PLATELETS 235 150 - 450 K/mm3 [facility] (CLIA# [id number]) MPV 7.1(L) 7.4 - 10.4 f/L [facility] (CLIA# [id number]) NEUTROPHIL % 84.6(H) 42 - 76 % [facility] (CLIA# [id number]) LYMPHOCYTE % 12.7(L) 15 - 45 % [facility] (CLIA# [id number]) MONOCYTE % 1.7(L) 4 - 13 % [facility] (CLIA# [id number]) EOSINOPHIL % 0.3 0 - 6 % [facility] (CLIA# [id number]) BASOPHIL % 0.7 0 - 2 % [facility] (CLIA# [id number]) NEUTROPHILS # 5.9 1.8 - 7.7 K/mm3 [facility] (CLIA# [id number]) . [facility] (CLIA# [id number]) 02/22/1999 2:51 AM EST 02/22/1999 2:55 AM EST Narrative [facility] (CLIA# [id number]) - 02/22/1999 2:51 AM EST Ordered by INPT HOUSE SERVICE us Unknown Provider [facility] LABORATORY Final Resul t [facility] (CLIA# [id number]) [address] [place] [address] * AMYLASE (02/22/1999 2:51 AM EST) Only the most recent of2 resultswithin the time period is included. AMYLASE 112 35 - 115 U/L [facility] (CLIA# [id number]) 02/22/1999 2:51 AM EST 02/22/1999 2:55 AM EST Narrative [facility] (CLIA# [id number]) - 02/22/1999 2:51 AM EST Ordered by INPT HOUSE SERVICE us Unknown Provider [facility] LABORATORY Final Resul t [facility] (CLIA# [id number]) [address] [place] [address] * (ABNORMAL) CHEMISTRY PANEL CP-7 (02/22/1999 2:51 AM EST) Only the most recent of4 resultswithin the time period is included. SODIUM 146(H) 135 - 145 MMOL/L [facility] (CLIA# [id number]) POTASSIUM 4.4 3.4 - 5.1 MMOL/L [facility] (CLIA# [id number]) Comment:SAMPLE 1+ HEMOLYZED 6060 CHLORIDE 106 98 - 108 MMOL/L [facility] (CLIA# [id number]) CARBON DIOXIDE 33(H) 23 - 30 MMOL/L [facility] (CLIA# [id number]) BUN 18 6 - 22 MG/DL [facility] (CLIA# [id number]) CREATININE 0.7 0.4 - 1.3 MG/DL [facility] (CLIA# [id number]) Glucose 196(H) 70 - 110 MG/DL [facility] (CLIA# [id number]) Comment: Effective January 25, 1999: New critical high value for glucose ?6060 has been changed from 500 to 450. ?6060 BUN/Creatinine Ratio 25.7 6.0 - 35.0 [facility] (CLIA# [id number]) ANION GAP 7 2 - 11 [facility] (CLIA# [id number]) Comment: The size of the anion gap is significantly ?6060 influenced by albumin levels. ? 6060 02/22/1999 2:51 AM EST 02/22/1999 2:55 AM EST Narrative [facility] (CLIA# [id number]) - 02/22/1999 2:51 AM EST Ordered by INPT HOUSE SERVICE us Unknown Provider [facility] LABORATORY Final Resul t [facility] (CLIA# [id number]) [address] [place] [address] * CA 125 (07/01/1998 5:18 PM EDT) CA 125 6.3 U/ML [facility] (CLIA# [id number]) Comment: CA125 Reference Note: Please note new test methodology (MEIA) effective 06/17/98. A direct comparison of previous results is not possible and new baseline values need to be established, especially with patient results greater than 250 U/ML. ??Please contact the laboratory at ext. [phone] if there are questions. Reference range: ??99% of healthy females and males are below 35 U/ML. CA125 by MEIA technology. patient results greater than 250 U/ML. ??Please contact the laboratory at ext. [phone] if there are questions. Reference range: ??99% of healthy females and males are below 35 U/ML. CA125 by MEIA technology. 07/01/1998 5:18 PM EDT 07/01/1998 8:58 PM EDT Narrative [facility] (CLIA# [id number]) - 07/01/1998 5:18 PM EDT Normal reference values of lipids have not been estab- lished as they vary with patient's age, sex, clinical condition, and risk factors. In adults 20-70 years old without atherosclerotic cardiovascular disease, total cholesterol >240 mg/dl, HDL-cholesterol <35 mg/dl, triglycerides >300 mg/dl, or LDL cholesterol >160 mg/dl may be considered high risk. The predictive value of blood lipids for developing arteriosclerosis however diminishes significantly with increasing age, but values less than listed may not be without risk. Chalino Lino MD LABORATORY Final Resu lt Performing Organization Address [facility] Co de Phone Number [facility] (CLIA# [id number]) [address] [place] [address] * TRIGLYCERIDES (07/01/1998 5:18 PM EDT) Only the most recent of2 resultswithin the time period is included. TRIGLYCERIDES 94 MG/DL [facility] (CLIA# [id number]) 07/01/1998 5:18 PM EDT 07/01/1998 8:55 PM EDT Narrative [facility] (CLIA# [id number]) - 07/01/1998 5:18 PM EDT NOT FASTING NOT FASTING Normal reference values of lipids have not been estab- lished as they vary with patient's age, sex, clinical condition, and risk factors. In adults 20-70 years old without atherosclerotic cardiovascular disease, total cholesterol >240 mg/dl, HDL-cholesterol <35 mg/dl, triglycerides >300 mg/dl, or LDL cholesterol >160 mg/dl may be considered high risk. The predictive value of blood lipids for developing arteriosclerosis however diminishes significantly with increasing age, but values less than listed may not be without risk. us Chalino Lino MD LABORATORY Final Resu lt Performing Organization Address [facility] Co de Phone Number [facility] (CLIA# [id number]) [address] [place] [address] * ALT (SGPT) (07/01/1998 5:18 PM EDT) Only the most recent of3 resultswithin the time period is included. ALT (SGPT) 22 10 - 40 IU/L [facility] (CLIA# [id number]) 07/01/1998 5:18 PM EDT 07/01/1998 8:55 PM EDT Narrative [facility] (CLIA# [id number]) - 07/01/1998 5:18 PM EDT Normal reference values of lipids have not been estab- lished as they vary with patient's age, sex, clinical condition, and risk factors. In adults 20-70 years old without atherosclerotic cardiovascular disease, total cholesterol >240 mg/dl, HDL-cholesterol <35 mg/dl, triglycerides >300 mg/dl, or LDL cholesterol >160 mg/dl may be considered high risk. The predictive value of blood lipids for developing arteriosclerosis however diminishes significantly with increasing age, but values less than listed may not be without risk. us Chalino Lino MD LABORATORY Final Resu lt Performing Organization Address [facility] Co de Phone Number [facility] (CLIA# [id number]) [address] [place] [address] * AST (SGOT) (07/01/1998 5:18 PM EDT) Only the most recent of3 resultswithin the time period is included. AST (SGOT) 26 10 - 42 IU/L [facility] (CLIA# [id number]) 07/01/1998 5:18 PM EDT 07/01/1998 8:55 PM EDT Narrative [facility] (CLIA# [id number]) - 07/01/1998 5:18 PM EDT Normal reference values of lipids have not been estab- lished as they vary with patient's age, sex, clinical condition, and risk factors. In adults 20-70 years old without atherosclerotic cardiovascular disease, total cholesterol >240 mg/dl, HDL-cholesterol <35 mg/dl, triglycerides >300 mg/dl, or LDL cholesterol >160 mg/dl may be considered high risk. The predictive value of blood lipids for developing arteriosclerosis however diminishes significantly with increasing age, but values less than listed may not be without risk. us Chalino Lino MD LABORATORY Final Resu lt Performing Organization Address [facility]/ZIP Co de Phone Number [facility] (CLIA# [id number]) [address] [place] [phone] * CHOLESTEROL, LDL (DIRECT) (07/01/1998 5:18 PM EDT) Only the most recent of2 resultswithin the time period is included. LDL-CHOLESTEROL 141 MG/DL [facility] (CLIA# [id number]) Comment: LDL REFERENCE RANGE COMMENT: The LDL result is a calculated value for Triglyceride values of less than 400 mg/dl Triglyceride values of less than 400 mg/dl 07/01/1998 5:18 PM EDT 07/01/1998 8:55 PM EDT Narrative [facility] (CLIA# [id number]) - 07/01/1998 5:18 PM EDT NOT FASTING NOT FASTING Normal reference values of lipids have not been estab- lished as they vary with patient's age, sex, clinical condition, and risk factors. In adults 20-70 years old without atherosclerotic cardiovascular disease, total cholesterol >240 mg/dl, HDL-cholesterol <35 mg/dl, triglycerides >300 mg/dl, or LDL cholesterol >160 mg/dl may be considered high risk. The predictive value of blood lipids for developing arteriosclerosis however diminishes significantly with increasing age, but values less than listed may not be without risk. us Chalino Lino MD LABORATORY Final Resu lt [facility] (CLIA# [id number]) [address] [place] [id number] * CHOLESTEROL, HDL (DIRECT) (07/01/1998 5:18 PM EDT) Only the most recent of2 resultswithin the time period is included. HDL-CHOLESTEROL 61 MG/DL [facility] (CLIA# [id number]) 07/01/1998 5:18 PM EDT 07/01/1998 8:55 PM EDT Narrative [facility] (CLIA# [id number]) - 07/01/1998 5:18 PM EDT NOT FASTING NOT FASTING Normal reference values of lipids have not been estab- lished as they vary with patient's age, sex, clinical condition, and risk factors. In adults 20-70 years old without atherosclerotic cardiovascular disease, total cholesterol >240 mg/dl, HDL-cholesterol <35 mg/dl, triglycerides >300 mg/dl, or LDL cholesterol >160 mg/dl may be considered high risk. The predictive value of blood lipids for developing arteriosclerosis however diminishes significantly with increasing age, but values less than listed may not be without risk. Chalino Lino MD LABORATORY Final Resu lt Performing Organization Address City/[facility]/ZIP Co de Phone Number [facility] (CLIA# [id number]) [address] [place] [phone] * CHOLESTEROL, TOTAL (07/01/1998 5:18 PM EDT) Only the most recent of2 resultswithin the time period is included. CHOLESTEROL, TOTAL 221 MG/DL [facility] (CLIA# [id number]) 07/01/1998 5:18 PM EDT 07/01/1998 8:55 PM EDT Narrative [facility] (CLIA# [id number]) - 07/01/1998 5:18 PM EDT NOT FASTING Normal reference values of lipids have not been estab- lished as they vary with patient's age, sex, clinical condition, and risk factors. In adults 20-70 years old without atherosclerotic cardiovascular disease, total cholesterol >240 mg/dl, HDL-cholesterol <35 mg/dl, triglycerides >300 mg/dl, or LDL cholesterol >160 mg/dl may be considered high risk. The predictive value of blood lipids for developing arteriosclerosis however diminishes significantly with increasing age, but values less than listed may not be without risk. us Chalino Lino MD LABORATORY Final Resu lt Performing Organization Address City/[facility]/ZIP Co de Phone Number [facility] (CLIA# [id number]) [address] [place] [phone] * CALCIUM (07/01/1998 5:18 PM EDT) CALCIUM 9.4 8.5 - 10.2 MG/DL [facility] (CLIA# [id number]) 07/01/1998 5:18 PM EDT 07/01/1998 8:55 PM EDT Narrative [facility] (CLIA# [id number]) - 07/01/1998 5:18 PM EDT Normal reference values of lipids have not been estab- lished as they vary with patient's age, sex, clinical condition, and risk factors. In adults 20-70 years old without atherosclerotic cardiovascular disease, total cholesterol >240 mg/dl, HDL-cholesterol <35 mg/dl, triglycerides >300 mg/dl, or LDL cholesterol >160 mg/dl may be considered high risk. The predictive value of blood lipids for developing arteriosclerosis however diminishes significantly with increasing age, but values less than listed may not be without risk. us Chalino Lino MD LABORATORY Final Resu lt [facility] (CLIA# [id number]) [address] [place] [address] * MAMMOGRAPHY-BILATERAL (09/29/1993 8:30 AM EDT) Pathologist [facility] RADIOLOGY REPORT Procedure ID: [id number] MAMMOGRAM, BILATERAL BILATERAL MAMMOGRAMS Parenchymal and periductal density is seen bilaterally. ??There has been further evolution of the biopsy site in the upper outer right breast since 12/25/90 and there is no longer any evidence of architectural distortion there. ??No evidence of separable mass in either breast and no suspicious calcifications or skin or nipple changes are seen. IMPRESSION: ??No radiographic evidence of malignancy. A letter (A) in lay language describing results will follow this report. ??[place] Department of Public Health and Medicare regulations state that this report must be given to the patient. [facility] (CLIA# [id number]) Anatomical Region Laterality Modality Other 09/29/1993 8:30 AM EDT Narrative 09/30/1993 8:13 AM EDT Reason for Study/History: ROUTINE Test(s) processed by : [employer] us Chalino Lino MD GENERAL IMAGING- OTHER Fin al Result * WBC ([facility]) (07/02/1993 9:54 AM EDT) WHITE BLOOD COUNT 6.4 3.8 - 10.8 K/mm3 [facility] (CLIA# [id number]) 07/02/1993 9:54 AM EDT 07/02/1993 10:00 AM EDT Narrative [facility] (CLIA# [id number]) - 07/02/1993 9:54 AM EDT [address] [place] [address]. us Chalino Lino MD LABORATORY Final Resu lt Performing Organization Address City/[facility]/ZIP Co de Phone Number [facility] (CLIA# [id number]) [address] [place] [phone] * ALKALINE PHOSPHATASE (07/01/1993 11:21 AM EDT) Pathologist [facility] ALKALINE PHOSPHATASE 58 30 - 115 IU/L [facility] (CLIA# [id number]) 07/01/1993 11:2 1 AM EDT 07/01/1993 11:24 AM EDT Narrative [facility] (CLIA# [id number]) - 07/01/1993 11:21 AM EDT Ordered by INPT HOUSE SERVICE us Unknown Provider [facility] LABORATORY Final Resul t Performing Organization Address City/[facility]/ZIP Co de Phone Number [facility] (CLIA# [id number]) [address] [place] [phone] * (ABNORMAL) URINALYSIS (07/01/1993 11:19 AM EDT) COLOR (URINE) YELLOW [facility] (CLIA# [id number]) APPEARANCE (URINE) CLEAR [facility] (CLIA# [id number]) GLUCOSE (URINE) NEG 0 - 0 mg/dL [facility] (CLIA# [id number]) BILIRUBIN (URINE) NEG 0 - 0 [facility] (CLIA# [id number]) Ketones (Urine) >80(A) 0 - 0 mg/dL [facility] (CLIA# [id number]) SPECIFIC GRAVITY 1.020 1.003 - 1.035 [facility] (CLIA# [id number]) UROBILINOGEN 0.2 0.2 - 1.0 EU/dl [facility] (CLIA# [id number]) NITRITE (URINE) NEG [facility] (CLIA# [id number]) BLOOD (URINE) NEG 0 - 0 [facility] (CLIA# [id number]) PH (URINE) 7.5 5.0 - 8.5 [facility] (CLIA# [id number]) PROTEIN (URINE) NEG 0 - 0 mg/dL [facility] (CLIA# [id number]) WBC (URINE) NEG 0 - 0 [facility] (CLIA# [id number]) 07/01/1993 11:1 9 AM EDT 07/01/1993 11:21 AM EDT Narrative [facility] (CLIA# [id number]) - 07/01/1993 11:19 AM EDT Ordered by INPT HOUSE SERVICE us Unknown Provider [facility] LABORATORY Final Resul t Performing Organization Address City/State/[facility] Co de Phone Number [facility] (CLIA# [id number]) [address] [place] [address] Visit Diagnoses Diagnosis Start Date Symptoms involving abdomen and pelvis Other symptoms involving abdomen and pelvis 07/01/1993 Symptoms involving abdomen and pelvis Other symptoms involving abdomen and pelvis 07/02/1993 Symptoms involving abdomen and pelvis Other symptoms involving abdomen and pelvis 07/28/1993 Breast screening, unspecified 09/29/1993 Dyschromia Dyschromia, unspecified 04/18/1994 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/02/1994 Routine general medical examination at a health care facility 07/01/1998 Sprain of lumbar region 08/27/1998 Other screening mammogram 09/08/1998 Osteoporosis, unspecified 09/08/1998 Bronchitis Bronchitis, not specified as acute or chronic 03/16/1999 Cough 03/16/1999 Pneumonia due to organism Pneumonia due to other specified organism 04/02/1999 Pneumonia, organism unspecified(486) Pneumonia, organism unspecified 04/02/1999 Pneumonia, organism unspecified(486) Pneumonia, organism unspecified 05/13/1999 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 10/15/1999 Acute pharyngitis 12/03/1999 Acute upper respiratory infection Acute upper respiratory infections of unspecified site 12/03/1999 Examination of eyes and vision 02/06/2002 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 02/06/2002 Cataract Unspecified cataract 02/06/2002 Examination of eyes and vision 10/25/2004 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 10/25/2004 Closed dislocation, lumbar vertebra 06/03/2005 Degeneration of lumbar or lumbosacral intervertebral disc 06/03/2005 Closed dislocation, first cervical vertebra 06/03/2005 Cervicalgia 06/03/2005 Other screening mammogram 06/03/2005 Closed dislocation, lumbar vertebra 06/06/2005 Degeneration of lumbar or lumbosacral intervertebral disc 06/06/2005 Closed dislocation, first cervical vertebra 06/06/2005 Routine general medical examination at a health care facility 06/07/2005 Need for prophylactic vaccination with tetanus-diphtheria (Td) 06/07/2005 NEED FOR PROPHYLACTIC VACCINATION AND INOCULATION AGAINST DISEASE Need for prophylactic vaccination and inoculation against other specified disease 06/07/2005 Unspecified menopausal and postmenopausal disorder 06/07/2005 Closed dislocation, lumbar vertebra 06/08/2005 Degeneration of lumbar or lumbosacral intervertebral disc 06/08/2005 Closed dislocation, first cervical vertebra 06/08/2005 Closed dislocation, lumbar vertebra 06/10/2005 Degeneration of lumbar or lumbosacral intervertebral disc 06/10/2005 Closed dislocation, first cervical vertebra 06/10/2005 Closed dislocation, lumbar vertebra 06/13/2005 Degeneration of lumbar or lumbosacral intervertebral disc 06/13/2005 Closed dislocation, first cervical vertebra 06/13/2005 Closed dislocation, lumbar vertebra 2005 Degeneration of lumbar or lumbosacral intervertebral disc 2005 Closed dislocation, first cervical vertebra 2005 Closed dislocation, lumbar vertebra 06/17/2005 Degeneration of lumbar or lumbosacral intervertebral disc 06/17/2005 Closed dislocation, first cervical vertebra 06/17/2005 Closed dislocation, lumbar vertebra 06/20/2005 Degeneration of lumbar or lumbosacral intervertebral disc 06/20/2005 Closed dislocation, first cervical vertebra 06/20/2005 Closed dislocation, lumbar vertebra 06/22/2005 Degeneration of lumbar or lumbosacral intervertebral disc 06/22/2005 Closed dislocation, first cervical vertebra 06/22/2005 Hypertension Unspecified essential hypertension 06/23/2005 Osteoporosis Osteoporosis, unspecified 06/23/2005 Closed dislocation, lumbar vertebra 06/24/2005 Degeneration of lumbar or lumbosacral intervertebral disc 06/24/2005 Closed dislocation, first cervical vertebra 06/24/2005 Closed dislocation, lumbar vertebra 06/27/2005 Degeneration of lumbar or lumbosacral intervertebral disc 06/27/2005 Closed dislocation, first cervical vertebra 06/27/2005 Closed dislocation, lumbar vertebra 06/29/2005 Degeneration of lumbar or lumbosacral intervertebral disc 06/29/2005 Closed dislocation, first cervical vertebra 06/29/2005 Closed dislocation, lumbar vertebra 07/08/2005 Degeneration of lumbar or lumbosacral intervertebral disc 07/08/2005 Closed dislocation, first cervical vertebra 07/08/2005 Closed dislocation, lumbar vertebra 07/13/2005 Degeneration of lumbar or lumbosacral intervertebral disc 07/13/2005 Closed dislocation, first cervical vertebra 07/13/2005 Closed dislocation, lumbar vertebra 07/20/2005 Degeneration of lumbar or lumbosacral intervertebral disc 07/20/2005 Closed dislocation, first cervical vertebra 07/20/2005 Closed dislocation, lumbar vertebra 07/27/2005 Degeneration of lumbar or lumbosacral intervertebral disc 07/27/2005 Closed dislocation, first cervical vertebra 07/27/2005 Closed dislocation, lumbar vertebra 08/03/2005 Degeneration of lumbar or lumbosacral intervertebral disc 08/03/2005 Closed dislocation, first cervical vertebra 08/03/2005 Hypertension Unspecified essential hypertension 08/26/2005 Insomnia NEC Insomnia, unspecified 08/26/2005 Osteoporosis Osteoporosis, unspecified 08/26/2005 Backache Backache, unspecified 08/26/2005 Hypertension Unspecified essential hypertension 09/26/2005 Elevated blood pressure reading without diagnosis of hypertension 09/26/2005 Hypertension Unspecified essential hypertension 09/26/2005 Hypertension Unspecified essential hypertension 09/26/2005 Hypertension Unspecified essential hypertension 09/26/2005 Hypertension Unspecified essential hypertension 11/02/2005 Hypertension Unspecified essential hypertension 11/28/2005 Cough 11/28/2005 Special screening for malignant neoplasms, colon 04/07/2006 Special screening for malignant neoplasms, colon 04/07/2006 Examination of eyes and vision 12/04/2006 Hypermetropia 12/04/2006 Presbyopia 12/04/2006 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 12/04/2006 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 ROUTINE GENERAL MEDICAL EXAMINATION AT A HEALTH CARE FACILITY Routine general medical examination at a health care facility 04/05/2007 Hypertension Unspecified essential hypertension 04/05/2007 Osteoporosis Osteoporosis, unspecified 04/05/2007 SCREENING FOR OTHER AND UNSPECIFIED DEFICIENCY ANEMIA Screening for other and unspecified deficiency anemia 04/05/2007 SCREENING FOR LIPOID DISORDERS Screening for lipoid disorders 04/05/2007 SCREEN-ENDOC/NUT/MET NEC Screening for other and unspecified endocrine, nutritional, metabolic, and immunity disorders 04/05/2007 SCREEN-ENDOC/NUT/MET NEC Screening for other and unspecified endocrine, nutritional, metabolic, and immunity disorders 04/09/2007 Hypertension Unspecified essential hypertension 04/09/2007 SCREENING FOR LIPOID DISORDERS Screening for lipoid disorders 04/09/2007 SCREENING FOR OTHER AND UNSPECIFIED DEFICIENCY ANEMIA Screening for other and unspecified deficiency anemia 04/09/2007 Osteoporosis Osteoporosis, unspecified 04/09/2007 Hypertension Unspecified essential hypertension 05/08/2007 Sciatica 05/08/2007 Vitamin D Defiency Unspecified vitamin D deficiency 05/08/2007 Osteoporosis Osteoporosis, unspecified 05/08/2007 Hyperlipidemia; LDL Goal < 130 Other and unspecified hyperlipidemia 05/08/2007 Hyperlipidemia Other and unspecified hyperlipidemia 05/08/2007 Nonallopathic lesion of lumbar region Nonallopathic lesion of lumbar region, not elsewhere classified 05/14/2007 Lumbosacral neuritis Thoracic or lumbosacral neuritis or radiculitis, unspecified 05/14/2007 Congenital spondylolysis, lumbosacral region 05/14/2007 Nonallopathic lesion of lumbar region Nonallopathic lesion of lumbar region, not elsewhere classified 05/15/2007 Lumbosacral neuritis Thoracic or lumbosacral neuritis or radiculitis, unspecified 05/15/2007 Congenital spondylolysis, lumbosacral region 05/15/2007 Sciatica 05/15/2007 Nonallopathic lesion of lumbar region Nonallopathic lesion of lumbar region, not elsewhere classified 05/18/2007 Lumbosacral neuritis Thoracic or lumbosacral neuritis or radiculitis, unspecified 05/18/2007 Congenital spondylolysis, lumbosacral region 05/18/2007 Nonallopathic lesion of lumbar region Nonallopathic lesion of lumbar region, not elsewhere classified 05/21/2007 Lumbosacral neuritis Thoracic or lumbosacral neuritis or radiculitis, unspecified 05/21/2007 Congenital spondylolysis, lumbosacral region 05/21/2007 Nonallopathic lesion of lumbar region Nonallopathic lesion of lumbar region, not elsewhere classified 05/23/2007 Lumbosacral neuritis Thoracic or lumbosacral neuritis or radiculitis, unspecified 05/23/2007 Congenital spondylolysis, lumbosacral region 05/23/2007 Sciatica 05/25/2007 Nonallopathic lesion of lumbar region Nonallopathic lesion of lumbar region, not elsewhere classified 05/28/2007 Lumbosacral neuritis Thoracic or lumbosacral neuritis or radiculitis, unspecified 05/28/2007 Congenital spondylolysis, lumbosacral region 05/28/2007 Nonallopathic lesion of lumbar region Nonallopathic lesion of lumbar region, not elsewhere classified 05/30/2007 Lumbosacral neuritis Thoracic or lumbosacral neuritis or radiculitis, unspecified 05/30/2007 Congenital spondylolysis, lumbosacral region 05/30/2007 Sciatica 06/01/2007 Nonallopathic lesion of lumbar region Nonallopathic lesion of lumbar region, not elsewhere classified 06/04/2007 Lumbosacral neuritis Thoracic or lumbosacral neuritis or radiculitis, unspecified 06/04/2007 Congenital spondylolysis, lumbosacral region 06/04/2007 Sciatica 06/07/2007 Sciatica 06/07/2007 DEHYDRATION Dehydration 06/08/2007 FATIGUE Other malaise and fatigue 06/08/2007 SCIATICA Sciatica 06/08/2007 DEHYDRATION Dehydration 06/08/2007 FATIGUE Other malaise and fatigue 06/08/2007 NAUSEA Nausea alone 06/08/2007 ACUTE KIDNEY INSUFFICIENCY Unspecified disorder of kidney and ureter 06/08/2007 Nonallopathic lesion of lumbar region Nonallopathic lesion of lumbar region, not elsewhere classified 06/11/2007 Lumbosacral neuritis Thoracic or lumbosacral neuritis or radiculitis, unspecified 06/11/2007 Congenital spondylolysis, lumbosacral region 06/11/2007 HERNIATED LUMBAR INTERVERTEBRAL DISC Displacement of lumbar intervertebral disc without myelopathy 06/11/2007 Hyperlipidemia Other and unspecified hyperlipidemia 06/12/2007 Hypertension Unspecified essential hypertension 06/12/2007 Displacement of lumbar intervertebral disc without myelopathy 06/22/2007 Displacement of lumbar intervertebral disc without myelopathy 06/23/2007 Hypertension Unspecified essential hypertension 07/31/2007 Hyperlipidemia; LDL Goal < 130 Other and unspecified hyperlipidemia 07/31/2007 Vitamin D Defiency Unspecified vitamin D deficiency 07/31/2007 BACK PAIN Backache, unspecified 07/31/2007 Osteoporosis Osteoporosis, unspecified 07/31/2007 ROUTINE GENERAL MEDICAL EXAMINATION AT A HEALTH CARE FACILITY Routine general medical examination at a health care facility 07/31/2007 INSOMNIA NEC Insomnia, unspecified 07/31/2007 IMPACTED CERUMEN Impacted cerumen 07/31/2007 Displacement of lumbar intervertebral disc without myelopathy 08/31/2007 Hypertension Unspecified essential hypertension 11/27/2007 Back pain Backache, unspecified 11/27/2007 Hyperlipidemia; LDL Goal < 130 Other and unspecified hyperlipidemia 11/27/2007 Malaise and fatigue Other malaise and fatigue 11/27/2007 Hypertension Unspecified essential hypertension 12/27/2007 Hypertension Unspecified essential hypertension 04/04/2008 Fungal dermatitis Dermatomycosis, unspecified 04/04/2008 Hypertension Unspecified essential hypertension 04/04/2008 Fungal dermatitis Dermatomycosis, unspecified 04/04/2008 Onychomycosis Dermatophytosis of nail 07/03/2008 Pain in limb Pain in soft tissues of limb 07/03/2008 Other synovitis and tenosynovitis 07/03/2008 Other synovitis and tenosynovitis 07/31/2008 Hypertension Unspecified essential hypertension 08/15/2008 Fungal dermatitis Dermatomycosis, unspecified 08/15/2008 Back pain Backache, unspecified 08/15/2008 Leg cramps Cramp of limb 08/15/2008 Routine general medical examination at a health care facility 08/15/2008 Vitamin D Defiency Unspecified vitamin D deficiency 08/15/2008 Hyperlipidemia; LDL Goal < 130 Other and unspecified hyperlipidemia 08/15/2008 Hypertension Unspecified essential hypertension 08/15/2008 Osteoporosis Osteoporosis, unspecified 08/15/2008 Back pain Backache, unspecified 08/15/2008 Leg cramps Cramp of limb 08/15/2008 Onychomycosis Dermatophytosis of nail 09/11/2008 Pain in limb Pain in soft tissues of limb 09/11/2008 Other symptoms referable to ankle and foot joint 09/11/2008 Other synovitis and tenosynovitis 09/11/2008 Abnormal mammogram Abnormal mammogram, unspecified 09/12/2008 Anxiety, stress, and tension Other psychological or physical stress, not elsewhere classified 09/15/2008 Myalgia and myositis Mylagia and myositis, unspecified 11/18/2008 Hyperlipidemia; LDL Goal < 130 Other and unspecified hyperlipidemia 11/18/2008 Hypertension Unspecified essential hypertension 11/18/2008 Back pain Backache, unspecified 11/18/2008 Myalgia and myositis Mylagia and myositis, unspecified 02/23/2009 Hyperlipidemia; LDL Goal < 130 Other and unspecified hyperlipidemia 02/23/2009 Hypertension Unspecified essential hypertension 02/23/2009 Back pain Backache, unspecified 02/23/2009 Vitamin D Defiency Unspecified vitamin D deficiency 02/23/2009 Hyperlipidemia; LDL Goal < 130 Other and unspecified hyperlipidemia 02/23/2009 Hypertension Unspecified essential hypertension 02/23/2009 Osteoporosis Osteoporosis, unspecified 02/23/2009 Restless leg syndrome Restless legs syndrome (RLS) 02/23/2009 Back pain Backache, unspecified 02/23/2009 Macular puckering of retina 03/30/2009 Nuclear cataract, nonsenile 03/30/2009 Annual physical exam Routine general medical examination at a health care facility 02/01/2010 Hypertension Unspecified essential hypertension 02/01/2010 Hyperlipidemia; LDL Goal < 130 Other and unspecified hyperlipidemia 02/01/2010 Vitamin D Defiency Unspecified vitamin D deficiency 02/01/2010 Vitamin D deficiency Unspecified vitamin D deficiency 02/15/2010 Hyperlipidemia Other and unspecified hyperlipidemia 02/15/2010 Hypertension Unspecified essential hypertension 02/15/2010 Vitamin D Defiency Unspecified vitamin D deficiency 02/15/2010 Hyperlipidemia; LDL Goal < 130 Other and unspecified hyperlipidemia 02/15/2010 Hypertension Unspecified essential hypertension 02/15/2010 Osteoporosis Osteoporosis, unspecified 02/15/2010 Annual physical exam Routine general medical examination at a health care facility 02/15/2010 Hypertension Unspecified essential hypertension 02/25/2010 Osteoporosis Osteoporosis, unspecified 02/25/2010 Vitamin D Defiency Unspecified vitamin D deficiency 02/25/2010 Hyperlipidemia; LDL Goal < 130 Other and unspecified hyperlipidemia 02/25/2010 Back pain Backache, unspecified 02/25/2010 Routine general medical examination at a health care facility 02/25/2010 Idiopathic peripheral neuropathy Unspecified hereditary and idiopathic peripheral neuropathy 02/25/2010 Need for prophylactic vaccination and inoculation against influenza 02/25/2010 Mammographic microcalcification 02/25/2010 Senile nuclear cataract Senile nuclear sclerosis 04/05/2010 Macular puckering of retina 04/05/2010 Mammographic microcalcification 04/22/2010 Other screening mammogram 04/22/2010 Vitamin B12 deficiency Other B-complex deficiencies 05/20/2010 Acquired deformity of ankle and foot Unspecified deformity of ankle and foot, acquired 07/15/2010 Hallux valgus Hallux valgus (acquired) 07/15/2010 Dermatophytosis of nail 07/15/2010 Vitamin B12 deficiency Other B-complex deficiencies 08/19/2010 Vitamin D Defiency Unspecified vitamin D deficiency 08/26/2010 Hypertension Unspecified essential hypertension 08/26/2010 Osteoporosis Osteoporosis, unspecified 08/26/2010 Back pain Backache, unspecified 08/26/2010 Hyperlipidemia; LDL Goal < 130 Other and unspecified hyperlipidemia 08/26/2010 Vitamin B12 deficiency Other B-complex deficiencies 08/26/2010 Acquired deformity of ankle and foot Unspecified deformity of ankle and foot, acquired 09/28/2010 Hallux valgus Hallux valgus (acquired) 09/28/2010 Dermatophytosis of nail 09/28/2010 Osteoporosis Osteoporosis, unspecified 10/21/2010 Vitamin B12 deficiency Other B-complex deficiencies 11/01/2010 Bursitis disorder Other bursitis disorders 01/04/2011 Lesion of plantar nerve 01/04/2011 Hypertension Unspecified essential hypertension 02/24/2011 Osteoporosis Osteoporosis, unspecified 02/24/2011 Vitamin D Defiency Unspecified vitamin D deficiency 02/24/2011 Hyperlipidemia; LDL Goal < 130 Other and unspecified hyperlipidemia 02/24/2011 Vitamin B12 deficiency Other B-complex deficiencies 02/24/2011 Routine history and physical examination of adult Routine general medical examination at a health care facility 02/24/2011 Dermatophytosis of nail 03/28/2011 Pain in limb 03/28/2011 Vitamin B12 deficiency Other B-complex deficiencies 05/26/2011 Vitamin D Defiency Unspecified vitamin D deficiency 05/26/2011 Hypertension Unspecified essential hypertension 05/26/2011 Osteoporosis Osteoporosis, unspecified 05/26/2011 Back pain Backache, unspecified 05/26/2011 Hyperlipidemia; LDL Goal < 130 Other and unspecified hyperlipidemia 05/26/2011 Cobalamin deficiency Other B-complex deficiencies 05/26/2011 Elevated blood pressure Elevated blood pressure reading without diagnosis of hypertension 05/26/2011 Hypertension Unspecified essential hypertension 07/19/2011 Osteoporosis Osteoporosis, unspecified 07/19/2011 Vitamin D Defiency Unspecified vitamin D deficiency 07/19/2011 Hyperlipidemia; LDL Goal < 130 Other and unspecified hyperlipidemia 07/19/2011 Back pain Backache, unspecified 07/19/2011 Vitamin B12 deficiency Other B-complex deficiencies 07/19/2011 UTI (urinary tract infection), uncomplicated Urinary tract infection, site not specified 08/22/2011 UTI (urinary tract infection), uncomplicated Urinary tract infection, site not specified 08/22/2011 UTI (urinary tract infection), uncomplicated Urinary tract infection, site not specified 08/22/2011 Hypertension Unspecified essential hypertension 08/26/2011 Hematoma Contusion of unspecified site 08/26/2011 Acute neck pain Cervicalgia 08/26/2011 Chronic Renal Insufficiency 08/26/2011 Dizziness and giddiness 08/29/2011 Fall from slipping on wet surface Fall from other slipping, tripping, or stumbling 08/29/2011 Dermatophytosis of nail 11/03/2011 Pain in limb 11/03/2011 Other screening mammogram 11/15/2011 Other screening mammogram 12/28/2011 Arthralgia Pain in joint, site unspecified 12/04/2012 Arthralgia Pain in joint, site unspecified 12/04/2012 Hypertension Unspecified essential hypertension 12/04/2012 Hyperlipidemia; LDL Goal < 130 Other and unspecified hyperlipidemia 12/04/2012 Vitamin B12 deficiency Other B-complex deficiencies 12/04/2012 Chronic Renal Insufficiency 12/04/2012 Pain in joint, site unspecified 12/05/2012 Ds DNA antibody positive Other and unspecified nonspecific immunological findings 12/10/2012 Ds DNA antibody positive Other and unspecified nonspecific immunological findings 12/10/2012 Foot pain Pain in limb 03/12/2013 Routine general medical examination at a health care facility 08/28/2013 Screening for thyroid disorder 08/28/2013 Screening for other disorders of blood and blood-forming organs 08/28/2013 Hypertension Unspecified essential hypertension 08/28/2013 Hyperlipidemia Other and unspecified hyperlipidemia 08/28/2013 Encounter for long-term (current) use of high-risk medication Encounter for long-term (current) use of other medications 08/28/2013 Screening for endorine/nutritional/metabolic disease Screening for other and unspecified endocrine, nutritional, metabolic, and immunity disorders 08/28/2013 Unspecified vitamin D deficiency 08/28/2013 Right foot pain Pain in limb 08/28/2013 Chronic kidney disease, unspecified 06/11/2014 Hypertension Unspecified essential hypertension 06/11/2014 Osteoporosis Osteoporosis, unspecified 06/11/2014 Vitamin D Defiency Unspecified vitamin D deficiency 06/11/2014 Hyperlipidemia; LDL Goal < 130 Other and unspecified hyperlipidemia 06/11/2014 Back pain Backache, unspecified 06/11/2014 Chronic Renal Insufficiency 06/11/2014 Ds DNA antibody positive Other and unspecified nonspecific immunological findings 06/11/2014 Vitamin B12 deficiency Other B-complex deficiencies 06/11/2014 Routine general medical examination at a health care facility 06/11/2014 Encounter for ophthalmic examination and evaluation Examination of eyes and vision 11/03/2014 Senile nuclear sclerosis, bilateral [366.16] 11/03/2014 Hypermetropia, bilateral [367.0] 11/03/2014 Presbyopia 11/03/2014 Other screening mammogram 11/10/2014 Routine general medical examination at a health care facility 12/15/2014 Screening for other disorders of blood and blood-forming organs 12/15/2014 Hypertension Unspecified essential hypertension 12/15/2014 Hyperlipidemia Other and unspecified hyperlipidemia 12/15/2014 Encounter for long-term (current) use of high-risk medication Encounter for long-term (current) use of other medications 12/15/2014 Screening for endorine/nutritional/metabolic disease Screening for other and unspecified endocrine, nutritional, metabolic, and immunity disorders 12/15/2014 Unspecified vitamin D deficiency 12/15/2014 Screening for thyroid disorder 12/15/2014 Hypertension Essential hypertension, benign 12/15/2014 Hyperlipidemia; LDL Goal < 130 Other and unspecified hyperlipidemia 12/15/2014 Vitamin B12 deficiency Other B-complex deficiencies 12/15/2014 Ds DNA antibody positive Other and unspecified nonspecific immunological findings 12/15/2014 Chronic Renal Insufficiency 12/15/2014 Right foot pain Pain in limb 12/15/2014 Lipids blood increased Other and unspecified hyperlipidemia 12/16/2014 Unspecified vitamin D deficiency 12/16/2014 Dysuria 02/24/2015 Acute cystitis with hematuria Acute cystitis 02/24/2015 Right foot pain Pain in limb 05/12/2015 Right foot pain Pain in limb 05/13/2015 Right foot pain Pain in limb 05/18/2015 Other secondary osteoarthritis of right foot 05/18/2015 Pain of right foot Pain in limb 05/18/2015 Difficulty walking Difficulty in walking 05/18/2015 Vitamin D deficiency 07/07/2015 Chronic Renal Insufficiency 07/07/2015 Hyperlipidemia; LDL Goal < 130 Other and unspecified hyperlipidemia 07/07/2015 Hypertension Essential hypertension, benign 07/07/2015 Osteoporosis 07/07/2015 Hyperlipidemia; LDL Goal < 130 Other and unspecified hyperlipidemia 07/07/2015 Vitamin B12 deficiency Other B-complex deficiencies 07/07/2015 Chronic Renal Insufficiency 07/07/2015 Routine general medical examination at a health care facility 07/07/2015 Low serum potassium level 07/08/2015 Low serum potassium level 07/13/2015 Dysuria 08/27/2015 Bladder infection Cystitis, unspecified 08/27/2015 Encounter for ophthalmic examination and evaluation Examination of eyes and vision 04/29/2016 Cortical senile cataract, bilateral [H25.013] 04/29/2016 Senile nuclear sclerosis, bilateral [H25.13] 04/29/2016 Dermatochalasis of eyelids of both eyes [H02.833, H02.836] 04/29/2016 Hypermetropia, bilateral [H52.03] 04/29/2016 Astigmatism, regular, bilateral [H52.223] 04/29/2016 Presbyopia 04/29/2016 Lipids blood increased Other and unspecified hyperlipidemia 08/18/2016 Encounter for long-term (current) use of high-risk medication Encounter for long-term (current) use of other medications 08/18/2016 Vitamin D deficiency 08/18/2016 Lipids blood increased Other and unspecified hyperlipidemia 08/30/2016 Encounter for long-term (current) use of high-risk medication Encounter for long-term (current) use of other medications 08/30/2016 Vitamin D deficiency 08/30/2016 Hypokalemia Hypopotassemia 09/08/2016 Hypokalemia Hypopotassemia 10/04/2016 Routine history and physical examination of adult Routine general medical examination at a health care facility 10/04/2016 Need for vaccination Need for prophylactic vaccination and inoculation against unspecified single disease 10/04/2016 Hypertension Essential hypertension, benign 10/04/2016 Vitamin D Defiency 10/04/2016 Insomnia, unspecified type 10/04/2016 Osteoporosis, unspecified osteoporosis type, unspecified pathological fracture presence 10/04/2016 Insomnia, unspecified type 11/26/2016 Insomnia, unspecified type 01/21/2017 Bacterial infection Bacterial infection, unspecified, in conditions classified elsewhere and of unspecified site 04/14/2017 Lower resp. tract infection Other diseases of respiratory system, not elsewhere classified 07/07/2017 Injury of ear, initial encounter 06/04/2018 Torn earlobe, left, initial encounter 07/06/2018 Torn earlobe, left, subsequent encounter 07/24/2018 Fatigue, unspecified type 08/08/2018 Fatigue, unspecified type 08/08/2018 Urinary tract infection without hematuria, site unspecified 11/01/2018 Pneumonia of left lower lobe due to infectious organism 06/03/2019 Pneumonia of left lower lobe due to infectious organism 06/03/2019 Special screening examination for unspecified viral disease 07/11/2019 SOB (shortness of breath) on exertion Shortness of breath 07/11/2019 Pre-op testing Preoperative examination, unspecified 10/03/2019 Need for vaccination Need for prophylactic vaccination and inoculation against unspecified single disease 12/20/2019 Vitamin D Defiency 12/20/2019 Vitamin B12 deficiency Other B-complex deficiencies 12/20/2019 Vitamin B12 deficiency Other B-complex deficiencies 12/20/2019 Routine history and physical examination of adult Routine general medical examination at a health care facility 12/20/2019 Other hyperlipidemia 12/20/2019 Hypertension Essential hypertension, benign 12/20/2019 Chronic Renal Insufficiency 12/20/2019 Osteoporosis, unspecified osteoporosis type, unspecified pathological fracture presence 12/20/2019 Memory loss 12/20/2019 Pneumonia of left lower lobe due to infectious organism 12/27/2019 Vitamin D Defiency 12/27/2019 Vitamin B12 deficiency Other B-complex deficiencies 12/27/2019 Hypertension, unspecified type 01/03/2020 Hypertension Essential hypertension, benign 01/31/2020 Hypertension Essential hypertension, benign 01/31/2020 Hypertension Essential hypertension, benign 01/31/2020 Hypertension, unspecified type 01/31/2020 Hypertension Essential hypertension, benign 02/28/2020 Hypertension, unspecified type 02/28/2020 Hypertension, unspecified type 03/09/2020 Memory loss 04/13/2020 Hypertension Essential hypertension, benign 04/13/2020 Hypertension Essential hypertension, benign 07/13/2020 Stage 2 chronic kidney disease 07/13/2020 Vitamin B12 deficiency Other B-complex deficiencies 07/13/2020 Vitamin D Defiency 07/13/2020 Other hyperlipidemia 07/13/2020 Memory loss 07/13/2020 Age-related osteoporosis without current pathological fracture Senile osteoporosis 07/13/2020 Seizures (HCC) Other convulsions 07/13/2020 Arteriosclerosis of aorta Atherosclerosis of aorta 07/13/2020 Right foot pain Pain in limb 07/13/2020 Advanced care planning/counseling discussion Other specified counseling 07/13/2020 Advanced care planning/counseling discussion Other specified counseling 10/14/2020 Hypertension Essential hypertension, benign 10/14/2020 Memory loss 10/14/2020 Stage 2 chronic kidney disease 10/14/2020 Vitamin B12 deficiency Other B-complex deficiencies 10/14/2020 Vitamin D Defiency 10/14/2020 Memory loss 11/09/2020 Right foot pain Pain in limb 11/09/2020 Vitamin D Defiency 11/09/2020 Osteoporosis, unspecified osteoporosis type, unspecified pathological fracture presence 11/09/2020 Encounter for vision examination with abnormal findings 11/27/2020 Presbyopia of both eyes 11/27/2020 Hypermetropia of both eyes Hypermetropia 11/27/2020 Regular astigmatism of both eyes Regular astigmatism 11/27/2020 Essential hypertension 11/27/2020 Nuclear sclerotic cataract of both eyes Senile nuclear sclerosis 11/27/2020 Dry eye syndrome of both eyes 11/27/2020 Memory loss 12/16/2020 Stage 2 chronic kidney disease 12/16/2020 Hypertension Essential hypertension, benign 12/16/2020 Advanced care planning/counseling discussion Other specified counseling 12/16/2020 Vitamin D Defiency 12/16/2020 Vitamin B12 deficiency Other B-complex deficiencies 12/16/2020 Hypertension Essential hypertension, benign 04/02/2021 Advanced care planning/counseling discussion Other specified counseling 05/06/2021 Arteriosclerosis of aorta Atherosclerosis of aorta 05/06/2021 Stage 2 chronic kidney disease 05/06/2021 Vitamin B12 deficiency Other B-complex deficiencies 05/06/2021 Seizures (HCC) Other convulsions 05/06/2021 Memory loss 05/06/2021 Hypertension Essential hypertension, benign 05/06/2021 Vitamin D Defiency 05/06/2021 Back pain, unspecified back location, unspecified back pain laterality, unspecified chronicity 06/22/2021 Hypertension Essential hypertension, benign 06/24/2021 Vitamin D Defiency 07/05/2021 Vitamin B12 deficiency Other B-complex deficiencies 07/05/2021 Stage 2 chronic kidney disease 07/05/2021 Hypertension Essential hypertension, benign 07/06/2021 Hypertension Essential hypertension, benign 07/21/2021 Stage 2 chronic kidney disease 07/21/2021 Acute bilateral low back pain with bilateral sciatica 07/21/2021 Vitamin B12 deficiency Other B-complex deficiencies 07/21/2021 Candidiasis 07/21/2021 Stage 2 chronic kidney disease 10/06/2021 Adjustment insomnia Transient disorder of initiating or maintaining sleep 10/06/2021 Situational mixed anxiety and depressive disorder Adjustment disorder with mixed anxiety and depressed mood 10/06/2021 Encounter for vision examination with abnormal findings 12/13/2021 Presbyopia of both eyes 12/13/2021 Hypermetropia of both eyes Hypermetropia 12/13/2021 Regular astigmatism of both eyes Regular astigmatism 12/13/2021 Nuclear sclerotic cataract of both eyes Senile nuclear sclerosis 12/13/2021 Essential hypertension 12/13/2021 Dry eye syndrome of both eyes 12/13/2021 Nuclear sclerosis, bilateral 12/24/2021 Keratoconjunctivitis sicca not specified as Sjogren's, bilateral 12/24/2021 Dermatochalasis of both upper eyelids 12/24/2021 Nuclear sclerosis, bilateral 02/14/2022 Mood disorder Unspecified episodic mood disorder 03/22/2022 Hypertension Essential hypertension, benign 03/22/2022 Seizures (HCC) Other convulsions 03/22/2022 Arteriosclerosis of aorta Atherosclerosis of aorta 03/22/2022 Adjustment insomnia Transient disorder of initiating or maintaining sleep 03/22/2022 Mood disorder Unspecified episodic mood disorder 04/11/2022 Nuclear senile cataract of both eyes 04/11/2022 Hypertension, benign Essential hypertension, benign 04/11/2022 Other hyperlipidemia 04/11/2022 Arteriosclerosis of aorta Atherosclerosis of aorta 04/11/2022 Memory loss 04/11/2022 Seizures (HCC) Other convulsions 04/11/2022 Stage 2 chronic kidney disease 04/11/2022 Situational mixed anxiety and depressive disorder Adjustment disorder with mixed anxiety and depressed mood 04/11/2022 Mood disorder Unspecified episodic mood disorder 04/11/2022 Preop examination Preoperative examination, unspecified 04/11/2022 Preop examination Preoperative examination, unspecified 04/11/2022 Nuclear senile cataract of both eyes 04/11/2022 Hypertension, benign Essential hypertension, benign 04/11/2022 Other hyperlipidemia 04/11/2022 Arteriosclerosis of aorta Atherosclerosis of aorta 04/11/2022 Memory loss 04/11/2022 Seizures (HCC) Other convulsions 04/11/2022 Stage 2 chronic kidney disease 04/11/2022 Situational mixed anxiety and depressive disorder Adjustment disorder with mixed anxiety and depressed mood 04/11/2022 Mood disorder Unspecified episodic mood disorder 04/11/2022 Nuclear senile cataract of right eye 04/14/2022 Presence of intraocular lens Lens replaced by other means 04/15/2022 Nuclear senile cataract of left eye 04/15/2022 Pseudophakia Lens replaced by other means 04/15/2022 Nuclear senile cataract of left eye 05/05/2022 Pseudophakia Lens replaced by other means 05/06/2022 S/P bilateral cataract extraction Cataract extraction status 06/06/2022 Hypertension Essential hypertension, benign 07/12/2022 Vitamin D Defiency 07/19/2022 Vitamin B12 deficiency Other B-complex deficiencies 07/19/2022 Stage 2 chronic kidney disease 07/19/2022 Situational mixed anxiety and depressive disorder Adjustment disorder with mixed anxiety and depressed mood 07/19/2022 Seizures (HCC) Other convulsions 07/19/2022 Mood disorder Unspecified episodic mood disorder 07/19/2022 Hypertension Essential hypertension, benign 07/19/2022 Candidiasis 07/19/2022 Bilateral impacted cerumen Impacted cerumen 07/19/2022 Chronic right-sided low back pain with bilateral sciatica 07/19/2022 Acute conjunctivitis of left eye, unspecified acute conjunctivitis type 08/12/2022 Memory loss 11/01/2022 Hypertension Essential hypertension, benign 11/01/2022 Situational mixed anxiety and depressive disorder Adjustment disorder with mixed anxiety and depressed mood 11/01/2022 Primary insomnia Persistent disorder of initiating or maintaining sleep 11/01/2022 Vitamin B12 deficiency Other B-complex deficiencies 11/14/2022 Vitamin D Defiency 11/14/2022 Mild cognitive impairment Mild cognitive impairment, so stated 12/02/2022 Mild cognitive impairment Mild cognitive impairment, so stated 12/24/2022 Vaginal bleeding Other specified noninflammatory disorder of vagina 01/04/2023 Hematuria, unspecified type 01/04/2023 Rectal bleeding Hemorrhage of rectum and anus 01/04/2023 Mild cognitive impairment Mild cognitive impairment, so stated 01/19/2023 Mild cognitive impairment Mild cognitive impairment, so stated 01/24/2023 Primary insomnia Persistent disorder of initiating or maintaining sleep 01/24/2023 Hypertension Essential hypertension, benign 01/24/2023 Vitamin B12 deficiency Other B-complex deficiencies 01/24/2023 Stage 2 chronic kidney disease 01/24/2023 Seizures (HCC) Other convulsions 01/24/2023 Mood disorder Unspecified episodic mood disorder 01/24/2023 Seasonal allergic rhinitis due to pollen 01/24/2023 Hypertension Essential hypertension, benign 05/05/2023 Seasonal allergic rhinitis due to pollen 05/17/2023 Vitamin D Defiency 05/17/2023 Vitamin B12 deficiency Other B-complex deficiencies 05/17/2023 Stage 2 chronic kidney disease 05/17/2023 Seizures (HCC) Other convulsions 05/17/2023 Primary insomnia Persistent disorder of initiating or maintaining sleep 05/17/2023 Mood disorder Unspecified episodic mood disorder 05/17/2023 Mild cognitive impairment Mild cognitive impairment, so stated 05/17/2023 Hypertension Essential hypertension, benign 05/17/2023 Bilateral impacted cerumen Impacted cerumen 05/17/2023 Arteriosclerosis of aorta Atherosclerosis of aorta 05/17/2023 Major depressive disorder, recurrent, in full remission Major depressive disorder, recurrent episode, in full remission 05/17/2023 Allergic conjunctivitis of both eyes Other chronic allergic conjunctivitis 05/19/2023 Restless leg Restless legs syndrome (RLS) 08/23/2023 Encounter for Medicare annual wellness exam Routine general medical examination at a health care facility 08/23/2023 Unspecified dementia, unspecified severity, without behavioral disturbance, psychotic disturbance, mood disturbance, and anxiety (HCC) 08/23/2023 Seasonal allergic rhinitis due to pollen 10/25/2023 Primary insomnia Persistent disorder of initiating or maintaining sleep 10/25/2023 Situational mixed anxiety and depressive disorder Adjustment disorder with mixed anxiety and depressed mood 10/25/2023 Hypertension Essential hypertension, benign 10/25/2023 Medication management Encounter for long-term (current) use of other medications 10/25/2023 Mild cognitive impairment Mild cognitive impairment, so stated 11/20/2023 Mild cognitive impairment Mild cognitive impairment, so stated 12/07/2023 Urinary pain Renal colic 01/18/2024 Acute cystitis without hematuria Acute cystitis 01/18/2024 Gluteal pain Mylagia and myositis, unspecified 03/01/2024 Gluteal pain Mylagia and myositis, unspecified 03/01/2024 Lumbosacral radiculopathy Thoracic or lumbosacral neuritis or radiculitis, unspecified 03/01/2024 Acute right-sided low back pain with right-sided sciatica 03/02/2024 Closed nondisplaced zone I fracture of sacrum with routine healing, subsequent encounter 03/11/2024 Slow transit constipation 03/11/2024 Hypertension Essential hypertension, benign 03/11/2024 Bright red blood per rectum Hemorrhage of rectum and anus 03/11/2024 At risk of fracture due to osteoporosis 03/11/2024 Low back pain of over 3 months duration 03/14/2024 Closed nondisplaced zone I fracture of sacrum, initial encounter ([facility]) 03/14/2024 Right sided sciatica Sciatica 03/15/2024 At risk of fracture due to osteoporosis 03/22/2024 Goals Goal Patient Goal Type Associated Problems Recent Progress Patient-Stated? Author Blood Pressure < 140/90 Blood Pressure 158/66( 024 3:45 PM EST) Marsha Farah CMA Care Teams Retouching Operator Relationship Specialty Start Date End Date Vale Walls NP [address] [place] [address] PCP - General Geriatrics 07/13/20 Vale Walls NP [address] [place] [address] PCP - Backup PCP Geriatrics 10/06/21
--- OUTSIDE RECORDS SUMMARY | 2024-05-10 10:09 | XMS_ITS | Encounter Summary ---
Author Organization [facility] Address [address] [place] [address] Care Team Providers Care Accountant Auditor Name Role Phone Alison Francis MD Primary Care Provider Shreyas Orellana MD Primary Care Provider UnavailAshanti Smith MD Primary Care Provider [phone] Shreyas Orellana MD Primary Care Provider UnavailAshanti Smith MD Primary Care Provider [phone] Vale Walls CHANNEL SUPERVISOR Primary Care Provider [phone] Chastity Cortes MD Unavailable Vale Walls CHANNEL SUPERVISOR Unavailable Reason for Visit * Reason Comments E-prescribing Refill Request Encounter Details Date Type Department Care Team (Late st Contact Info) Description 03/09/2011 Refill July Internal Medicine [address] [place] [id number] Alison Francis MD [address] [place] [id number] E-prescribing Refill Request Social History Tobacco Use [...] documented as of this encounter Care Teams Accountant Auditor Relationship Specialty Start Date End Date Alison Francis MD PCP - General 03/20/10 09/01/15 Shreyas Orellana MD PCP - General Internal Medicine 09/02/15 07/07/19 Ashanti Kumar MD PCP - General Family Medicine 07/08/19 07/09/19 Shreyas Orellana MD PCP - General Internal Medicine 07/10/19 09/06/19 Ashanti Kumar MD PCP - General Family Medicine 09/07/19 07/12/20 Vale Walls NP [address] [place] [address] PCP - General Geriatrics 07/13/20 Chastity Cortes MD [address] [place] [id number] PCP - Backup PCP Geriatrics 10/23/20 03/30/21 Vale Walls NP [address] [place] [address] PCP - Backup PCP Geriatrics 10/06/21 documented as of this encounter
--- OUTSIDE RECORDS SUMMARY | 2024-05-10 10:09 | XMS_ITS | Encounter Summary ---
Author Organization [facility] Address [address] [place] [address] Care Team Providers Care Life Scientists Name Role Phone Alison Francis MD Primary Care Provider Alison Francis MD Primary Care Provider [phone] Shreyas Orellana MD Primary Care Provider UnavailAshanti Smith MD Primary Care Provider Shreyas Orellana MD Primary Care Provider UnavailAshanti Smith MD Primary Care Provider [phone] Vale Walls TOBACCO BALER Primary Care Provider Chastity Cortes MD Unavailable Vale Walls TOBACCO BALER Unavailable Encounter Details Date Type Department Care Team (Late st Contact Info) Description 02/01/2010 Orders Only May Internal Medicine [address] [place] [id number] Alison Francis MD [address] [place] [address] [phone] Social History Tobacco Use Types Packs/Day Years [...] of this encounter Results * Due to [place] state law, this organization might not be [...] MD LABORATORY Final Result Performing Organization Address [facility] Co de Phone Number [facility] [address] [place] [address] * T4, FREE THYROXINE (02/15/2010) FT4 1.07 0.8 - 1.8 NG/DL [facility] 02/15/2010 02/15/2010 6:0 8 PM EST us Alison Francis MD LABORATORY Final Result Performing Organization Address City/[facility]/ZIP Co de Phone Number [facility] [address] [place] [address] * TSH (THYROTROPIN) (02/15/2010) TSH, THYROTROPIN 1.730 0.40 - 4.50 UIU/ML [facility] 02/15/2010 02/15/2010 6:0 8 PM EST us Alison Francis MD LABORATORY Final Result Performing Organization Address [facility] Co de Phone Number [facility] [address] [place] [address] * ASPARTATE AMINOTRANSFERASE (AST), SERUM (02/15/2010) AST (SGOT) 22 10 - 35 U/L [facility] 02/15/2010 02/15/2010 6:0 8 PM EST Result [facility] us Alison Francis MD LAB SAME DAY RESULT Final Resul t Performing Organization Address [facility] [place] de Phone Number [facility] [address] [place] [address] * ALANINE AMINOTRANSFERASE (ALT), SERUM (02/15/2010) ALT (SGPT) 20 6 - 40 U/L [facility] 02/15/2010 02/15/2010 6:0 8 PM EST Result [facility] us Alison Francis MD LAB SAME DAY RESULT Final Resul t Performing Organization Address [facility] [place] de Phone Number [facility] [address] [place] [address] * (ABNORMAL) LIPID PANEL + CARDIAC RISK WITH REFLEX TO LDL DIRECT (02/15/2010) CHOLESTEROL, TOTAL 212(H) 125 - 200 MG/DL [...] MD LABORATORY Final Result Performing Organization Address [facility] Co de Phone Number [facility] [address] [place] [address] * (ABNORMAL) BASIC METABOLIC PANEL W/GLOMERULAR FILTRATION RATE (EGFR) (02/15/2010) Pathologist [facility] CALCIUM 8.9 8.6 - 10.2 MG/DL [facility] [...] MD LABORATORY Final Result Performing Organization Address City/State/[facility] Co de Phone Number [facility] [address] [place] [address] * CBC 5 PART DIFF (02/15/2010) Pathologist [facility] WHITE BLOOD COUNT 5.8 3.8 - 10.8 [...] RESULT Final Resul t Performing Organization Address City/State/[facility] Co de Phone Number [facility] [address] [place] [address] documented in this encounter Visit Diagnoses Diagnosis Annual physical exam Routine general medical examination at a health care facility Hypertension Unspecified essential hypertension Hyperlipidemia; LDL Goal < 130 Other and unspecified hyperlipidemia Vitamin D Defiency Unspecified vitamin D deficiency Vitamin D Defiency Unspecified vitamin D deficiency [...] documented as of this encounter Care Teams Life Scientists Relationship Specialty Start Date End Date Alison [...] Family Medicine 09/07/19 07/12/20 Vale Walls NP [address] [place] [id number] PCP - General Geriatrics 07/13/20 Chastity Cortes MD [address] [place] [id number] PCP - Backup PCP Geriatrics 10/23/20 03/30/21 Vale Walls NP [address] [place] [id number] PCP - Backup PCP Geriatrics 10/06/21 documented as of this encounter
--- OUTSIDE RECORDS SUMMARY | 2024-05-10 10:10 | XMS_ITS | Encounter Summary ---
Author Organization [facility] Address [address] [place] [address] Care Team Providers Care Obstetrical Tech Name Role Phone Alison Francis MD Primary Care Provider Alison Francis MD Primary Care Provider [phone] Shreyas Orellana MD Primary Care Provider UnavailAshanti Smith MD Primary Care Provider Shreyas Orellana MD Primary Care Provider UnavailAshanti Smith MD Primary Care Provider Vale Walls SUPERVISOR [employer] Primary Care Provider Chastity Cortes MD Unavailable [phone] Vale Walls SUPERVIS[employer] Unavailable Encounter Details Date Type Department Care Team (Late st Contact Info) Description 02/23/2009 Orders Only May Internal Medicine [address] [place] [phone] Alison Francis MD [address] [place] [address] [phone] Social History Tobacco Use Types Packs/Day Years [...] of this encounter Procedures * Due to [place] state law, this organization might not be [...] LDL Goal < 130 Hypertension Back Pain T4, FREE THYROXINE Routine 02/23/2009 Myalgia and Myositis Hyperlipidemia; LDL Goal < 130 Hypertension Back Pain documented in this encounter Results * Due to [place] state law, this organization might not be sharing negative HIV tests. * T4, FREE THYROXINE (02/23/2009) FT4 1.03 0.8 - 1.8 NG/DL [facility] 02/23/2009 02/23/2009 8:1 6 PM EST Alison Francis MD LABORATORY Final Result Performing Organization Address City/State/[facility] Co de Phone Number [facility] [address] [place] [address] * TSH (THYROTROPIN) (02/23/2009) TSH, THYROTROPIN 1.45 0.40 - 4.50 UIU/ML [facility] 02/23/2009 02/23/2009 8:1 6 PM EST Alison Francis MD LABORATORY Final Result [facility] [address] [place] [address] * CBC 5 PART DIFF (02/23/2009) WHITE BLOOD COUNT 6.9 3.8 - 10.8 THOUS/UL [facility] RBC 4.42 3.80 - 5.10 MIL/UL [facility] Hemoglobin 13.1 11.7 - 15.5 G/DL [facility] HCT (HEMATOCRIT) 39.1 35.0 - 45.0 % [facility] MCV 88.3 80.0 - 100.0 FL [facility] MCH 29.7 27.0 - 33.0 PG [facility] MCHC 33.7 32.0 - 36.0 G/DL [facility] BAND % 0 0 - 5 % [facility] NEUTROPHIL % 54 48 - 75 % [facility] LYMPHOCYTE % 36 17 - 40 % [facility] MONOCYTE % 7 0 - 14 % [facility] EOSINOPHIL % 2 0 - 5 % [facility] BASOPHIL % 1 0 - 3 % [facility] ATYPICAL LYMPHOCYTE % 0 0 - 5 % [facility] PLATELETS 209 140 - 400 THOUS/UL [facility] BANDS # 0 0 - 750 CELLS/MCL [facility] NEUTROPHILS # 3726 1500 - 7800 CELLS/MCL [facility] LYMPHOCYTES # 2484 850 - 3900 CELLS/MCL [facility] MONOCYTES # 483 200 - 950 CELLS/MCL [facility] EOSINOPHILS # 138 15 - 550 CELLS/MCL [facility] BASOPHILS # 69 0 - 200 CELLS/MCL [facility] ATYPICAL LYMPHOCYTES # 0 0 - 200 CELLS/MCL [facility] RDW 12.6 11.0 - 15.0 % [facility] MPV 8.2 7.5 - 11.5 FL [facility] 02/23/2009 02/23/2009 8:1 6 PM EST us Alison Francis MD LAB SAME DAY RESULT Final Resul t [facility] [address] [place] [address] * BASIC METABOLIC PANEL W/GLOMERULAR FILTRATION RATE (EGFR) (02/23/2009) CALCIUM 9.2 8.6 - 10.2 MG/DL [facility] BUN 24 7 - 25 MG/DL [facility] CREATININE 0.86 0.63 - 1.22 MG/DL [facility] Glucose 94 65 - 99 MG/DL [facility] SODIUM 141 135 - 146 MMOL/L [facility] POTASSIUM 4.0 3.5 - 5.3 MMOL/L [facility] CHLORIDE 105 98 - 110 MMOL/L [facility] CARBON DIOXIDE 22 21 - 33 MMOL/L [facility] GFR > 60 60 AND ABOVE [facility] Comment:UNITS: ML/MIN/1.73 S Q METERS EGFR > 60 60 AND ABOVE [facility] Comment:UNITS: ML/MIN/1.73 S Q METERS 02/23/2009 02/23/2009 8:1 6 PM EST Narrative [facility] - 02/24/2009 2:19 AM EST Please note that this estimated [...] more precise needs for GFR calculation. us Alison Francis MD LABORATORY Final Result Performing Organization Address [facility] Co de Phone Number [facility] [address] [place] [address] * (ABNORMAL) LIPID PANEL + CARDIAC RISK WITH REFLEX TO LDL DIRECT (02/23/2009) CHOLESTEROL, TOTAL 243(H) 125 - 200 MG/DL [facility] TRIGLYCERIDES 246(H) 30 - 149 MG/DL [facility] HDL-CHOLESTEROL 47 40 - 77 MG/DL [facility] LDL-CHOLESTEROL 147(H) 62 - 130 MG/DL [facility] Comment: RISK CATEGORY: ??LDL-CHOLESTEROL GOAL CHD AND CHD RISK EQUIVALENTS: ??<100 MULTIPLE (2+) FACTORS: ??<130 ZERO TO ONE RISK FACTOR: ??<160 CHD RELATIVE RISK RATIO (TOTAL/HDL) 5.17(H) 0.0 - 5.0 [facility] Comment:(1.4 X AVERAGE) 02/23/2009 02/23/2009 8:1 6 PM EST us Alison Francis MD LABORATORY Final Result Performing Organization Address [facility] Co de Phone Number [facility] [address] [place] [address] documented in this encounter Visit Diagnoses Diagnosis Myalgia and myositis Mylagia and myositis, unspecified Hyperlipidemia; LDL Goal < 130 Other and unspecified hyperlipidemia Hypertension Unspecified essential hypertension Back pain Backache, unspecified documented in this encounter Additional Health Concerns Infection Onset Date Last Indicated Resolved Time COVID-19 Confirmed 07/11/2019 07/11/2019 0 8:12 PM EDT documented as of this encounter Care Teams Obstetrical Tech Relationship Specialty Start Date End Date Alison Francis MD PCP - General 03/20/10 09/01/15 Alison Franics MD PCP - General 07/02/07 03/19/10 Shreyas Orellana MD PCP - General Internal Medicine 09/02/15 07/07/19 Ashanti Kumar MD PCP - General Family Medicine 07/08/19 07/09/19 Shreyas Orellana MD PCP - General Internal Medicine 07/10/19 09/06/19 Ashanti Kumar MD PCP - General Family Medicine 09/07/19 07/12/20 Vale Walls NP [address] [place] [id number] PCP - General Geriatrics 07/13/20 Chastity Cortes MD [address] [place] [phone] PCP - Backup PCP Geriatrics 10/23/20 03/30/21 Vale Walls NP [address] [place] [id number] PCP - Backup PCP Geriatrics 10/06/21 documented as of this encounter
--- OUTSIDE RECORDS SUMMARY | 2024-05-10 10:10 | XMS_ITS | Encounter Summary ---
Author Organization [facility] Address [address] [place] [address] Care Team Providers Care Real Estate Operations Manager Name Role Phone Vale Walls Primary Care Provider [phone] Encounter Details Date Type Department Care Team (Latest Contact Info) Description 04/22/2024 8:07 AM EST - 04/22/2024 11:59 PM [facility] Hospital Encounter [facility] [address] [place] [address] Piero Hilton MD [address] [place] [address] Pain Discharge Disposition: Home or Self Care [...] Description 05/17/2024 11:00 AM EST Office Visit [facility] [address] [place] [address] [phone] Disability Specialist: Marcia Orlando MD [address] [place] [address] [phone] Yesica Mi PA [address] [place] [address] [phone] 07/11/2024 3:20 PM EDT Follow-Up [facility] [address] [place] [address] Piero Hilton MD [address] [place] [address] [phone] documented as of this encounter Procedures * Due to [place] Re[place]nervate law, this organization might not be sharing negative HIV tests. Procedure Name Priority Date/Time Associated Diagnosis Comments FL C-ARM INJECTION NON-REPORTABLE Routine 04/22/2024 12:19 PM EST Pain documented in this encounter Results * Due to [place] Re[employer]nervate law, this organization might not be sharing [...] pain documented in this encounter Care Teams Real Estate Operations Manager Relationship Specialty Start Date End Date Vale Walls [address] [place] [address] PCP - General Nurse Practitioner 03/08/24 documented as of this encounter
--- OUTSIDE RECORDS SUMMARY | 2024-05-10 10:10 | XMS_ITS | Encounter Summary ---
Author Organization [facility] Address [address] [place] [address] Care Team Providers Care Airconditioning Engineer Name Role Phone Vale Walls Primary Care Provider Reason for Visit * Reason Comments Leg Pain Back Pain Abdominal Pain * Auth/Cert (Routine) Specialty Diagnoses / Procedures Referred By Contac t Referred To Contact Diagnoses Back pain at L4-L5 level Referral ID Status Reason Start Date Expiration Date Visits Re quested Visits Authorized [id number] [phone] Encounter Details Date Type Department Care Team (Late st Contact Info) Description 04/18/2024 5:23 PM EST - 04/19/2024 3:15 PM EST Emergency [facility] Emergency Department [address] [place] [phone] Fermin Hawkins MD [address] [place] [address] [place] [address] Elvis Tran MD [address] [place] [phone] Patsy Merchant MD [address] [place] [address] [phone] Back pain at L4-L5 level (Primary Dx); [...] original note were not included. DISCHARGE SUMMARY [facility] DISCHARGE INFORMATION: Date and Time of Admission: 04/19/2024 12:08 AM Date of Discharge: 04/19/24 DISCHARGE DIAGNOSIS: Problem List Active Problems * (Principal) Back pain at L4-L5 level Back pain with radiculopathy Hypertension Impaired mobility Insomnia Mood disorder (HCC) Neuroforaminal stenosis of lumbar spine Resolved Problems RESOLVED: Abnormal urinalysis ATTENDING PHYSICIAN ON DISCHARGE: Attending Provider: Elvis Tran MD [phone] FOLLOW-UPS AND SCHEDULED APPOINTMENTS: Future Appointments Date Time Provider Department Center 04/22/2024 8:30 AM [facility] 04/22/2024 8:30 AM Piero Hilton MD [facility] DANIELA AR 05/17/2024 11:00 AM [facility] Rheum DANIELA AR CONTACT INFORMATION FOR FOLLOW-UP Care [facility] ([facility]) Specialty: Home Health Services [address] [place] [address] Next Steps: Follow up Vale Walls Specialty: Nurse Practitioner Relationship: PCP - General [facility] [address] [facility] [address] Next Steps: Call in 3 day(s) Instructions: [...] HISTORY: Past Surgical History: Procedure Laterality Date WI EXCIS CERV DISK,ONE LEVEL N/A History of Laminectomy With Disc Removal WI TOTAL ABDOM HYSTERECTOMY N/A History of Hysterectomy [...] Clarity, Urine Slightly Cloudy (A) Clear Specific [place], Urine 1.025 1.005 - 1.030 pH, Urine [...] to obtain the completed interpretation. Workstation ID: [id number] CT Abd Pelvis W Contrast, CT Reconstruction of Lumbar Spine Result Date: 04/18/2024 No acute abnormality. If this radiology report contains a blank impression section, it is an incomplete radiology report. Please contact the interpreting radiologist or applicable radiology division as soon as possible to obtain the completed interpretation. Workstation ID: [id number] Up-to-date CT equipment and radiation dose reduction techniques were employed. CTDIvol: 14.7 mGy. DLP: 672 mGy-cm. The following accession numbers are related to this dose report [id number]: [id number] Up-to-date CT equipment and radiation dose reduction techniques were employed. CTDIvol: 14.7 mGy. DLP: 672 mGy-cm.The following accession numbers are related to this dose report [id number]: [id number] GLOBAL PLAN OF CARE CONSULTS: IP CONSULT [...] home medications same as before - Continue yrhs-kif-pvpqnny analgesics like Tylenol or ibuprofen, continue oxycodone [...] Past Medical History: Hypertension Past Surgical History: WI EXCIS CERV DISK,ONE LEVEL; N/A WI TOTAL ABDOM HYSTERECTOMY; N/A Home Medications: acetaminophen [...] Clarity, Urine Slightly Cloudy (A) Clear Specific [place], Urine 1.025 1.005 - 1.030 pH, Urine [...] to obtain the completed interpretation. Workstation ID: [id number] Up-to-date CT equipment and radiation dose reduction techniques were employed. CTDIvol: 14.7 mGy. DLP: 672 mGy-cm. The following accession numbers are related to this dose report [id number]: [id number] Up-to-date CT equipment and radiation dose reduction techniques were employed. CTDIvol: 14.7 mGy. DLP: 672 mGy-cm.The following accession numbers are related to this dose report [id number]: [id number] ECG ECG: not available on admission Assessment [...] Hypertension Past Surgical History: Procedure Laterality Date WI EXCIS CERV DISK,ONE LEVEL N/A History of Laminectomy With Disc Removal WI TOTAL ABDOM HYSTERECTOMY N/A History of Hysterectomy [...] med. workup and need for admit) and SOAPING DEPARTMENT SUPERVISOR (to review case and request evaluation). ED [...] Fermin Hawkins MD Carlene Rose : 1940 [facility]: [phone] Fermin Hawkins MD 04/19/24 1358 documented in [...] HCP, Designated Caregiver, Guardian: Deborah Rosario Daughter [phone] Initial Discharge Planning: D/c home with care [...] Hypertension Past Surgical History: Procedure Laterality Date WI EXCIS CERV DISK,ONE LEVEL N/A History of Laminectomy With Disc Removal WI TOTAL ABDOM HYSTERECTOMY N/A History of Hysterectomy [...] without a brace Row Name 04/19/24 1314 Land Appraiser Services Land Appraiser Needed No Row Name 04/19/24 1314 Living [...] strength deficits identified;lower extremity strength deficits identified [facility] Name 04/19/24 1314 MMT: Lower Extremity [...] Mobility Assessment/Treatment Assistive Device (Bed Mobility) none Ytkcuv-nr-Wzr [place] (Bed Mobility) modified independence Comment (Bed Mobility) Increase time and pain, pt reports she has been sleeping on the couch which has been more comfortable for her than the bed Row Name 04/19/241313 Transfer Assessment/Treatment Sit-Stand [place] level (Transfers) supervision required Stand-Sit [place] level(Transfers) supervision required Zty-Mqnbz-Oxa Assistive Device (Transfers) gait belt;walker, rolling Comment (Transfers) Cues for hand placement, education provided on purchasing commode over toilet Row Name 04/19/241313 Gait Assessment/Treatment [place] (Gait) supervision required Assistive Device (Gait) gait belt;walker, rolling Distance in Feet (Gait) x50' Gait Pattern Analysis swing-to gait Gait Deviations rosalba, decreased;shuffle;stance time, decreased, left Comment (Gait) Pt educated on small step length to decrease LLE weightbearing. C/o increased pain, but no LOB noted Row Name 04/19/24 131 Stairs Assessment/Treatment Number of Stairs (Stairs) 4 Handrail Location (Stairs) left side (ascending) [place] (Stairs) contact guard assist Assistive Device (Stairs) [...] 1, PT) sit to supine/supine to sit [place] Level/Cues Needed (Bed Mobility Goal 1, PT) independent Assitive Devices (Bed Mobility Goal 1, PT) none Time Frame (Bed Mobility Goal 1, PT) by discharge Row Name 04/19/24 1300 Static Standing Balance Goal (PT) Base of Support (Static Standing Balance Goal, PT) normal base [place] Level (Static Standing Balance Goal, PT) modified independence Assistive Devices (Static Standing Balance Goal, PT) walker, rolling Upper Extremity Support (Static Standing Balance Goal, PT) two upper extremities Time Frame (Static Standing Balance Goal, PT) by discharge Row Name 04/19/24 1300 Dynamic Standing Balance Goal (PT) Activity (Dynamic Standing Balance Goal, PT) change direction [place] Level (Dynamic Standing Balance Goal, PT) modified independence Assistive Devices (Dynamic Standing Balance Goal, PT) walker, rolling Strategies (Dynamic Standing Balance Goal, PT) effective Time Frame (Dynamic Standing Balance Goal, PT) by discharge Row Name 04/19/24 1300 Transfer Goal 1 (PT) Activity (Transfer Goal 1, PT) odm-gp-xvbmh/tonyc-hs-fqj;kpv-wr-enzvg/whpfk-bs-zaa [place] Level/Cues Needed (Transfer Goal 1, PT) modified independence Assitive Devices (Transfer Goal 1, PT) walker, rolling Time Frame (Transfer Goal 1, PT) by discharge Row Name 04/19/24 1300 Gait Training Goal 1 (PT) Activity (Gait Training Goal 1, PT) gait (walking locomotion) [place] Level (Gait Training Goal 1, PT) modified independence Assistive Devices (Gait Training Goal 1, PT) walker, rolling Distance (Gait Goal 1, PT) x100' Time Frame (Gait Training Goal 1, PT) by discharge Row Name 04/19/24 1300 Stairs Goal 1 (PT) Activity (Stairs Goal 1, PT) ascending stairs;descending stairs [place] Level/Cues Needed (Stairs Goal 1, PT) modified [...] PT) by discharge Row Name 04/19/24 1300 Cooking Chef Goal (PT) Statement (Group Home Goal, PT) indep community mobility [place] Level (Group Home Goal, PT) independent Time Frame (Cooking Chef Goal, PT) 4 weeks [facility] Licensure: [place]ERRA MARIN: [id number] * Plan of Care - Emily Moe [...] Work status: Retired. Living situation: Lives in [place] Pre-injury ambulation status: Walks with a cane. Extended Emergency Contact Information Primary Emergency Contact: Deborah Rosario [facility] Mobile Relation: Daughter Family History: Denies a [...] note. Ricky Redding MD PGY-3 Orthopaedic Surgery [facility]: #[id number] for Consults, #[phone] for Primary Patients [facility]: #5491 for Consults/Inpatient Cosigned by Perry Kennedy MD [...] Description 05/17/2024 11:00 AM EST Office Visit [facility] Rheumatology [facility] [address] [place] [phone] Drawing Kiln Operator: Marcia Orlando MD [address] [place] [phone] Yesica Mi PA [address] [place] [phone] 07/11/2024 3:20 PM EDT Follow-Up [facility] [address] [place] [address] Piero Hilton MD [address] [place] [phone] documented as of this encounter Procedures * Due to [place] state law, this organization might not [...] in this encounter Results * Due to [place] state law, this organization might not [...] obtain the completed interpretation. ? Workstation ID: [id number] Narrative 04/19/2024 5:26 AM EST COMPARISON: CT lumbar spine 04/18/2024. ??Lumbar spine MRI 04/03/2024. FINDINGS AND Resulting Agency Comment [id number] Procedure Note Clem Holguin, DO - 04/19/2024 COMPARISON: CT lumbar spine 04/18/2024. Lumbar spine MRI 04/03/2024. FINDINGS AND IMPRESSION: The bones are diffusely demineralized. Unchanged dextroconvex scoliosisof the lumbar spine and advanced multilevel degenerative changes ascharacterized on prior MRI. Unchanged degenerative grade 1anterolisthesis at L4-L5. Chronic compression deformity of the J2wgylaakrp body. Unchanged subacute sacral insufficiency fractures. If this radiology report contains a blank impression section, it is anincomplete radiology report. Please contact the interpreting radiologistor applicable radiology division as soon as possible to obtain thecompleted interpretation. Workstation ID: [id number] us Elvis Tran MD IMG XR PROCEDURES [...] obtain the completed interpretation. ? Workstation ID: [id number] Up-to-date CT equipment and radiation dose reduction techniques were employed. CTDIvol: 14.7 mGy. DLP: 672 mGy-cm. ??The following accession numbers are related to this dose report [id number]: [id number] Up-to-date CT equipment and radiation dose reduction techniques were employed. CTDIvol: 14.7 mGy. DLP: 672 mGy-cm. ??The following accession numbers are related to this dose report [id number]: [id number] Narrative 04/18/2024 10:15 PM EST COMPARISON: 03/09/2024. [...] described sacral insufficiency fractures. Resulting Agency Comment [id number] Procedure Note Harpreet Estrada MD - 04/18/2024 [...] possible to obtain thecompleted interpretation. Workstation ID: [id number] Up-to-date CT equipment and radiation dose reduction techniques wereemployed. CTDIvol: 14.7 mGy. DLP: 672 mGy-cm. The following accessionnumbers are related to this dose report [id number]: [id number] Up-to-date CT equipment and radiation dose reduction techniques wereemployed. CTDIvol: 14.7 mGy. DLP: 672 mGy-cm. The following accessionnumbers are related to this dose report [id number]: [id number] us Fermin Hawkins MD [facility] CT PROCEDURES Final Result * CT Abd [...] obtain the completed interpretation. ? Workstation ID: [id number] Up-to-date CT equipment and radiation dose reduction techniques were employed. CTDIvol: 14.7 mGy. DLP: 672 mGy-cm. ??The following accession numbers are related to this dose report [id number]: [id number] Up-to-date CT equipment and radiation dose reduction techniques were employed. CTDIvol: 14.7 mGy. DLP: 672 mGy-cm. ??The following accession numbers are related to this dose report [id number]: [id number] Narrative 04/18/2024 10:15 PM EST COMPARISON: 03/09/2024. [...] described sacral insufficiency fractures. Resulting Agency Comment [id number] Procedure Note Harpreet Estrada MD - 04/18/2024 [...] possible to obtain thecompleted interpretation. Workstation ID: [id number] Up-to-date CT equipment and radiation dose reduction techniques wereemployed. CTDIvol: 14.7 mGy. DLP: 672 mGy-cm. The following accessionnumbers are related to this dose report [id number]: [id number] Up-to-date CT equipment and radiation dose reduction techniques wereemployed. CTDIvol: 14.7 mGy. DLP: 672 mGy-cm. The following accessionnumbers are related to this dose report [id number]: [id number] Fermin Hawkins MD IMG CT PROCEDURES Final Result * Urine Culture, Routine (04/18/2024 6:43 PM EST) Pathologist [facility] Culture Mixed genital carmelita isolated. These superficial bacteria are not indicative of a urinary tract infection. No further organism identification is warranted on this specimen. 04/20/2024 1:03 AM EST [employer] Urine Urine specimen collection, clean catch / Unknown Non-Blood Collection / Unknown 04/18/2024 6:43 PM EST 04/18/2024 7:02 PM EST Narrative [facility] - 04/20/2024 1:03 AM EST [facility] Received Date: MICRO NUMBER: [id number] SPECIMEN QUALITY: Adequate SOURCE: URINE CLEAN CATCH STATUS: FINAL If clinically indicated, recollect clean-catch, mid-stream urine and transfer immediately to Urine Culture Transport Tube. Elvis Tran MD LAB MICROBIOLOGY - GENERAL ORDERABLES Final Result DEO NATHALIE [address] [facility] [address], [place] [address], [place] [phone] [employer] [facility] [address] [facility] [address], [place] [address], [place] [phone] * [place] Top, Urine (04/18/2024 6:43 PM EST) Extra Tube Hold for add-ons. 04/18/2024 11:05 PM EST [facility] Comment:Auto resulted. Urine Urine specimen collection, clean catch / Unknown Non-Blood Collection / Unknown 04/18/2024 6:43 PM EST 04/18/2024 6:43 PM EST us Fermin Hawkins MD LAB URINE ORDERABLES Final Resul t [facility] [address] [place] [address], [place] * (ABNORMAL) Urinalysis W/Reflex to Microscopic & Culture (04/18/2024 6:43 PM EST) Color, Urine Yellow Colorless, Light Yellow, Yellow, Dark Yellow 04/18/2024 7:03 PM EST [facility] Clarity, Urine Slightly Cloudy(A) Clear 04/18/2024 7:03 PM EST [facility] Specific [place], Urine 1.025 1.005 - 1.030 04/18/2024 7:03 PM EST [facility] pH, Urine 5.0 4.6 - 8.0 04/18/2024 7:03 PM EST [facility] Protein, Urine Negative Negative 04/18/2024 7:03 PM EST [facility] Glucose, Urine Negative Negative 04/18/2024 7:03 PM EST [facility] Ketones, Urine Negative Negative 04/18/2024 7:03 PM EST [facility] Bilirubin, Urine Negative Negative 04/18/2024 7:03 PM EST [facility] Blood, Urine Negative Negative 04/18/2024 7:03 PM EST [facility] Nitrite, Urine Negative Negative 04/18/2024 7:03 PM EST [facility] Urobilinogen, Urine Positive(A) Normal 04/18/2024 7:03 PM EST [facility] Leukocyte Esterase, Urine 1+(A) Negative 04/18/2024 7:03 PM EST [facility] WBC, Urine 10(H) 0 - 2 /HPF 04/18/2024 7:03 PM EST [facility] RBC, Urine 2 0 - 2 /HPF 04/18/2024 7:03 PM EST [facility] Hyaline Casts, Urine 2 0 - 2 /LPF 04/18/2024 7:03 PM EST [facility] Squamous Epithelial Cells, Urine 4 /HPF 04/18/2024 7:03 PM EST [facility] Bacteria, Urine Rare(A) None /HPF /HPF 04/18/2024 7:03 PM EST [facility] Mucus, Urine Rare /LPF 04/18/2024 7:03 PM EST [facility] Urine Urine specimen collection, clean catch / Unknown Non-Blood Collection / Unknown 04/18/2024 6:43 PM EST 04/18/2024 6:43 PM EST us Fermin Hawkins MD LAB URINE ORDERABLES Final Resul t [facility] [address] [place] [address], [place] * (ABNORMAL) Comprehensive Metabolic Panel (If age > 70) (04/18/2024 12:18 PM EST) NA 138 135 - 145 mmol/L 04/18/2024 1:35 PM EST [facility] K 4.2 3.5 - 5.3 mmol/L 04/18/2024 1:35 PM EST [facility] Cl 107 98 - 107 mmol/L 04/18/2024 1:35 PM EST [facility] CO2 19(L) 22 - 32 mmol/L 04/18/2024 1:35 PM [facility] Anion Gap 12 5 - 15 04/18/2024 1:35 PM [facility] Glucose 99 65 - 99 mg/dL 04/18/2024 1:35 PM [facility] Creatinine 0.89 0.50 - 1.20 mg/dL 04/18/2024 1:35 PM [facility] Calcium 9.3 8.6 - 10.5 mg/dL 04/18/2024 1:35 PM [facility] Total Protein 6.8 6.0 - 8.0 g/dL 04/18/2024 1:35 PM [facility] Albumin 3.8 3.5 - 5.2 g/dL 04/18/2024 1:35 PM [facility] Bilirubin, Total 0.5 0.2 - 1.2 mg/dL 04/18/2024 1:35 PM [facility] Alkaline Phosphatase 181(H) 35 - 129 U/L 04/18/2024 1:35 PM [facility] AST 25 10 - 40 U/L 04/18/2024 1:35 PM [facility] ALT 9(L) 10 - 40 U/L 04/18/2024 1:35 PM [facility] BUN 24(H) 7 - 23 mg/dL 04/18/2024 1:35 PM [facility] eGFR 64 >=60 mL/min/1. 73m2 04/18/2024 1:35 PM [facility] Comment:The estimated glomer ular [...] - 4.2 g/dL 04/18/2024 1:35 PM EST [facility] A/G Ratio 1.3(L) 1.5 - 3.0 04/18/2024 1:35 PM EST [facility] Blood Structure of peripheral vein / Unknown Venipuncture / Unknown 04/18/2024 12:18 PM EST 04/18/2024 12:33 PM EST us Fermin Hawkins MD LAB BLOOD ORDERABLES Final Resul t [facility] [address] [place] [address], [place] * (ABNORMAL) CBC Auto Differential (04/18/2024 12:18 PM EST) WBC 9.0 3.8 - 10.8 10*3/uL 04/18/2024 12:40 PM EST [facility] RBC 4.45 3.80 - 5.10 10*6/uL 04/18/2024 12:40 PM EST [facility] Hemoglobin 12.7 11.7 - 15.5 g/dL 04/18/2024 12:40 PM EST [facility] Hematocrit 38.4 35.0 - 45.0 % 04/18/2024 12:40 PM EST [facility] MCV 86.3 80.0 - 100.0 fL 04/18/2024 12:40 PM EST [facility] MCH 28.5 27.0 - 33.0 pg 04/18/2024 12:40 PM EST [facility] MCHC 33.1 32.0 - 36.0 g/dL 04/18/2024 12:40 PM [facility] RDW 14.0 11.0 - 15.0 % 04/18/2024 12:40 PM [facility] Platelets 219 140 - 400 10*3/uL 04/18/2024 12:40 PM [facility] MPV 8.9 7.5 - 12.5 fL 04/18/2024 12:40 PM [facility] Neutrophil % 69.1 % 04/18/2024 12:40 PM [facility] Immature Grans % 0.4 0.0 - 0.9 % 04/18/2024 12:40 PM [facility] Lymphocyte % 18.8 % 04/18/2024 12:40 PM [facility] Monocyte % 8.3 % 04/18/2024 12:40 PM [facility] Eosinophil % 2.8 % 04/18/2024 12:40 PM [facility] Basophil % 0.6 % 04/18/2024 12:40 PM [facility] Neutrophil # 6.21 1.50 - 7.80 10*3/uL 04/18/2024 12:40 PM [facility] Immature Grans # 0.04(H) <=0.03 10*3/uL 04/18/2024 12:40 PM [facility] Lymphocyte # 1.70 0.85 - 3.90 10*3/uL 04/18/2024 12:40 PM [facility] Monocyte # 0.80 0.20 - 0.95 10*3/uL 04/18/2024 12:40 PM [facility] Eosinophil # 0.30 0.02 - 0.50 10*3/uL 04/18/2024 12:40 PM [facility] Basophil # 0.10 0.00 - 0.20 10*3/uL 04/18/2024 12:40 PM EST [facility] nRBC % 0.0 /100 WBCs 04/18/2024 12:40 PM EST [facility] nRBC # <0.01 <0.01 10*3/uL 04/18/2024 12:40 PM EST [facility] Blood Structure of peripheral vein / Unknown Venipuncture / Unknown 04/18/2024 12:18 PM EST 04/18/2024 12:33 PM EST us Fermin Hawkins MD LAB BLOOD ORDERABLES Final Resul t [facility] [address] [place] [address], documented in this encounter Visit Diagnoses Diagnosis [...] section. 0800 (Given - Provid er: Emily oMe RN) verapamiL (CALAN) tablet 80 mg 80 [...] administration. 0759 (See Alternativ e - Provider: Emiyl Moe RN)1420 (See Alternative - Provider: Emily [...] administration. documented in this encounter Care Teams Airconditioning Engineer Relationship Specialty Start Date End Date Yola Wallsa [address] [place] [address] PCP - General Nurse Practitioner 03/08/24 documented as of this encounter
--- OUTSIDE RECORDS SUMMARY | 2024-05-10 10:10 | XMS_ITS | Encounter Summary ---
Author Organization [facility] Address [address] [place] [address] Care Team Providers Care Integrated Circuit Fabricator Name Role Phone Vale Walls Primary Care Provider [phone] Reason for Visit * Reason Comments Injections * Consultation (Routine) - Authorized Specialty Diagnoses / Procedures Referred By Contdavid t Referred To Contact Orthopaedic Surgery Diagnoses Radiculopathy of lumbar region Holli Fenton PA [address] [place] [address] Phone: tel: fax: Piero Hilton MD [address] [place] [address] Phone: tel: fax: Referral ID Status Reason Start Date Expiration Date V isits Requested Visits Authorized [id number] Authorized 04/12/2024 10/12/2025 6 6 Encounter Details Date Type Department Care Team (Latest Contact Info) Description 04/22/2024 8:07 AM EST - 04/22/2024 11:59 PM [facility] Hospital Encounter [facility] [address] [place] [address] Piero Hilton MD [address] [place] [address] Radiculopathy of lumbar region (Primary Dx) Discharge [...] During Business Hours 8am-4pm Scheduling concerns - [phone] Clinical concerns - [phone] After normal business hours - If you [...] Patient's understanding of procedure matches consent: Yes [place] Protocol: Procedure consent matches procedure scheduled: Yes [...] outpatient to the ambulatory injection suite at [facility]. Vital signs were monitored before and [...] stable condition. Carlene Rose : 1940 CSN: [id number] documented in this encounter Plan of Treatment Upcoming Encounters Date Type Department Care Team (Late st Contact Info) Description 05/17/2024 11:00 AM EST Office Visit [facility] [address] [place] [address] Buffer Chrome: Marcia Orlando MD [address] [place] [address] Yesica Mi PA [address] [place] [address] 07/11/2024 3:20 PM EDT Follow-Up [facility] A [address] [place] [address] Piero Hilton MD [address] [place] [address] documented as of this encounter Procedures * Due to [place] state law, this organization might not be sharing negative HIV tests. Procedure Name Priority Date/Time Associated Diagnosis Comments CT NJX DX/THER SBST INTRLMNR LMBR/SAC W/IMG GDN Routine 04/22/2024 8:30 AM EST Radiculopathy of lumbar region documented in this encounter Results * Due to [place] state law, this organization might not be sharing negative HIV tests. * CT NJX DX/THER SBST INTRLMNR LMBR/SAC W/IMG GDN [...] Patient's understanding of procedure matches consent: Yes [place] Protocol: ? Procedure consent matches procedure scheduled: [...] outpatient to the ambulatory injection suite at [facility]. ? Vital signs were monitored before [...] mg documented in this encounter Care Teams Integrated Circuit Fabricator Relationship Specialty Start Date End Date Luis Ejustino Vale [address] [place] [address] PCP - General Nurse Practitioner 03/08/24 documented as of this encounter
--- OUTSIDE RECORDS SUMMARY | 2024-05-10 10:10 | XMS_ITS | Encounter Summary ---
Author Organization [facility] Address [address] [place] [address] Care Team Providers Care Chain Sales Representative Name Role Phone Alison Francis MD Primary Care Provider Alison Francis MD Primary Care Provider Shreyas Orellana MD Primary Care Provider UnavailAshanti Smith MD Primary Care Provider Shreyas Orellana MD Primary Care Provider UnavailAshanti Smith MD Primary Care Provider Vale Walls HAND FLESHER Primary Care Provider Chastity Cortes MD Unavailable Vale Walls HAND FLESHER Unavailable [phone] Encounter Details Date Type Department Care Team (Late st Contact Info) Description 09/12/2008 Orders Only May Internal Medicine [address] [place] [phone] Alison Francis MD [address] [place] [address] [phone] Social History Tobacco Use Types Packs/Day Years [...] as of this encounter Visit Diagnoses Diagnosis Abnormal mammogram- Primary Abnormal mammogram, unspecified documented in this encounter Additional Health Concerns Infection Onset Date Last Indicated Resolved Time COVID-19 Confirmed 07/11/2019 07/11/2019 0 8:12 PM EDT documented as of this encounter Care Teams Chain Sales Representative Relationship Specialty Start Date End Date Alison [...] Family Medicine 09/07/19 07/12/20 Vale Walls NP [address] [place] [address] PCP - General Geriatrics 07/13/20 Chastity Cortes MD [address] [place] [address] PCP - Backup PCP Geriatrics 10/23/20 03/30/21 Vale Walls NP [address] [place] [address] PCP - Backup PCP Geriatrics 10/06/21 documented as of this encounter
--- OUTSIDE RECORDS SUMMARY | 2024-05-10 10:10 | XMS_ITS | Encounter Summary ---
Author Organization [facility] Address [address] [place] [address] Care Team Providers Care Engineer Intern Name Role Phone Alison Francis MD Primary Care Provider [phone] Shreyas Orellana MD Primary Care Provider UnavailAshanti Smith MD Primary Care Provider [phone] Shreyas Orellana MD Primary Care Provider UnavailAshanti Smith MD Primary Care Provider Vale Walls COUNSELING SPECIALIST Primary Care Provider Chastity Cortes MD Unavailable Vale Walls COUNSELING SPECIALIST Unavailable Encounter Details Date Type Department Care Team (Late st Contact Info) Description 07/07/2015 Orders Only July Internal Medicine [address] [place] [address] Alison Francis MD [address] [place] [address] Medications Social History Tobacco Use Types Packs/Day Years [...] encounter Progress Notes * Alison Francis - 07/08/2015 3:29 PM EDTQuick Note: Pls inform pt her K is low - needs KCL 20 MEQ po daily, repeat K levels on Monday. Encourage increased dietary intake of K rich foods.Rx sent documented in this encounter Plan of Treatment Not on file documented as of this encounter Goals Goal Patient Goal Type Associated Problems Recent Progress Patient-Stated? Author Blood Pressure < 140/90 Blood Pressure 158/66( 024 3:45 PM EST) No Marsha Guzman CMA documented as of this encounter Procedures * Due to [place] [employer] law, this organization might not be sharing negative HIV tests. Procedure Name Priority Date/Time Associated Diagnosis Comments URINALYSIS, DIP ONLY STAT (All results called to provider) 07/07/2015 12:22 PM EDT Chronic Renal Insufficiency CBC INCLUDES DIFFERENTIAL AND PLATELET COUNT Routine 07/07/2015 11:55 AM EDT Chronic Renal Insufficiency VITAMIN D, 25-HYDROXY, TOTAL, IMMUNOASSAY Routine 07/07/2015 11:55 AM EDT Vitamin D deficiency LIPID PANEL WITH REFLEX TO DIRECT LDL Routine 07/07/2015 11:55 AM EDT Hyperlipidemia; LDL Goal < 130 BASIC METABOLIC PANEL WITH (GFR) Routine 07/07/2015 11:55 AM EDT Chronic Renal Insufficiency documented in this encounter Results * Due to [place] [employer] law, this organization might not be sharing negative HIV tests. * URINALYSIS, DIP ONLY ( SITE STAT ONLY) (07/07/2015 12:22 PM EDT) COLOR (URINE) YELLOW [facility] (CLIA# [id number]) APPEARANCE (URINE) CLEAR [facility] (CLIA# [id number]) SPECIFIC GRAVITY 1.010 1.001 - 1.035 [facility] (CLIA# [id number]) PH (URINE) 7.5 5.0 - 8.0 [facility] (CLIA# [id number]) PROTEIN (URINE) NEGATIVE Neg [facility] (CLIA# [id number]) GLUCOSE (URINE) NEGATIVE Neg [facility] (CLIA# [id number]) Ketones (Urine) NEGATIVE Neg [facility] (CLIA# [id number]) BILIRUBIN (URINE) NEGATIVE Neg [facility] (CLIA# [id number]) BLOOD (URINE) NEGATIVE Neg [facility] (CLIA# [id number]) WBC (URINE) NEGATIVE Neg [facility] (CLIA# [id number]) NITRITE (URINE) NEGATIVE Neg [facility] (CLIA# [id number]) Urine specimen obtained by clean catch procedure (specimen) 07/07/2015 12:22 PM EDT us Alison Francis MD LAB SAME DAY RESULT Final Resul t [facility] (CLIA# [id number]) [address] [place] [address] * LIPID PANEL WITH REFLEX TO DIRECT LDL (07/07/2015 11:55 AM EDT) Cholesterol 200 125 - 200 mg/dL [facility] Comment:{CHOLESTEROL, TOTAL {[id number]) HDL Cholesterol 51 > OR = 46 mg/dL [facility] Comment:{HDL CHOLESTEROL {[id number]) Triglyceride 120 <150 mg/dL [facility] Comment:{TRIGLYCERIDES {[id number]) LDL Cholesterol 125 <130 mg/dL (calc) [facility] Comment: {LDL-CHOLESTEROL {[id number]) Desirable range <100 mg/dL for patients with CHD or diabetes and <70 mg/dL for diabetic patients with known heart disease. CHOL/HDL Ratio 3.9 < OR = 5.0 (calc) [facility] Comment:{CHOL/HDLC RATIO {[id number]) Cholesterol Non-HDL 149 mg/dL (calc) [facility] Comment: {NON HDL CHOLESTEROL {[id number]) Target for non-HDL cholesterol is 30 mg/dL higher than LDL cholesterol target. 07/07/2015 11:5 5 AM EDT 07/07/2015 7:19 PM EDT Narrative Resulting Agency Comment [id number] Alison Francis MD LABORATORY Final Result [facility] [address] [place] [address] * (ABNORMAL) BASIC METABOLIC PANEL WITH (GFR) (07/07/2015 11:55 AM EDT) Glucose 93 65 - 99 mg/dL [facility] Comment: {GLUCOSE {[id number]) ? Fasting reference interval Urea Nitrogen Blood (BUN) 23 7 - 25 mg/dL [facility] Comment:{UREA NITROGEN (BUN) {[id number]) Creatinine 0.80 0.60 - 0.93 mg/dL [facility] Comment: {CREATININE {[id number]) For patients >49 years of age, the reference limit for Creatinine is approximately 13% higher for people identified as -[place]jiboutian. GFR 71 > OR = 60 mL/min/1 .73m2 [facility] Comment:{eGFR NON-AFR. AMERI CAN {[id number]) GFR () 82 > OR = 60 mL/min/1 .73m2 [facility] Comment:{eGFR AMERIC AN {[id number]) BUN/Creatinine Ratio NOT APPLICABLE 6 - (calc) [facility] Comment:{BUN/CREATININE RATI O {[id number]) Sodium 135 135 - 146 mmol/L [facility] Comment:{SODIUM {[id number]) Potassium 3.1(L) 3.5 - 5.3 mmol/L [facility] Comment:{POTASSIUM {[id number]) Chloride 100 98 - 110 mmol/L [facility] Comment:{CHLORIDE {[id number]) Carbon dioxide 23 19 - 30 mmol/L [facility] Comment:{CARBON DIOXIDE {[id number]) Calcium 9.3 8.6 - 10.4 mg/dL [facility] Comment:{CALCIUM {[id number]) 07/07/2015 11:5 5 AM EDT 07/07/2015 7:19 PM EDT Narrative [facility] - 07/07/2015 9:34 PM EDT Please note that this estimated [...] needs for GFR calculation. Resulting Agency Comment [id number] Alison Francis MD LABORATORY Final Result [facility] [address] [place] [address] * CBC INCLUDES DIFFERENTIAL AND PLATELET COUNT (07/07/2015 11:55 AM EDT) WBC 6.1 3.8 - 10.8 Thousand/u L [facility] Comment:{WHITE BLOOD CELL CO UNT {[id number]) RBC 4.91 3.80 - 5.10 Million/uL [facility] Comment:{RED BLOOD CELL COUN T {[id number]) Hemoglobin 14.0 11.7 - 15.5 g/dL [facility] Comment:{HEMOGLOBIN {[id number]) Hematocrit 42.3 35.0 - 45.0 % [facility] Comment:{HEMATOCRIT {[id number]) MCV 86.1 80.0 - 100.0 fL [facility] Comment:{MCV {[id number]) MCH 28.6 27.0 - 33.0 pg [facility] Comment:{MCH {[id number]) MCHC 33.2 32.0 - 36.0 g/dL [facility] Comment:{MCHC {[id number]) RDW 13.6 11.0 - 15.0 % [facility] Comment:{RDW {[id number]) PLT 189 140 - 400 Thousand/u L [facility] Comment:{PLATELET COUNT {[id number]) MPV 8.3 7.5 - 11.5 fL [facility] Comment:{MPV {[id number]) Neutrophils # 2946 1500 - 7800 cells/uL [facility] Comment:{ABSOLUTE NEUTROPHIL S {[id number]) Lymphocytes # 2532 850 - 3900 cells/uL [facility] Comment:{ABSOLUTE LYMPHOCYTE S {[id number]) Monocytes # 464 200 - 950 cells/uL [facility] Comment:{ABSOLUTE MONOCYTES {[id number]) Eosinophils # 110 15 - 500 cells/uL [facility] Comment:{ABSOLUTE EOSINOPHIL S {[id number]) Basophils # 49 0 - 200 cells/uL [facility] Comment:{ABSOLUTE BASOPHILS {[id number]) Neutrophils % 48.3 % [facility] Comment:{NEUTROPHILS {[id number]) Lymphocytes % 41.5 % [facility] Comment:{LYMPHOCYTES {[id number]) Monocytes % 7.6 % [facility] Comment:{MONOCYTES {[id number]) Eosinophils % 1.8 % [facility] Comment:{EOSINOPHILS {[id number]) Basophils % 0.8 % [facility] Comment:{BASOPHILS {[id number]) 07/07/2015 11:5 5 AM EDT 07/07/2015 7:19 PM EDT Narrative Resulting Agency Comment [id number] Alison Francis MD LAB SAME DAY RESULT Final Resul t [facility] [address] [place] [address] * (ABNORMAL) VITAMIN D, 25-HYDROXY, TOTAL, IMMUNOASSAY (07/07/2015 11:55 AM EDT) Vitamin D, 25-OH, Total 26(L) 30 - 100 ng/mL [facility] Comment: {VITAMIN D,25-OH,TOTAL,IA {[id number]) Vitamin D Status ? 25-OH Vitamin D: Deficiency: ?<20 ng/mL Insufficiency: ? 20 - 29 ng/mL Optimal: ? > or = 30 ng/mL For 25-OH Vitamin D testing on patients on D2-supplementation and patients for whom quantitation of D2 and D3 fractions is required, the QuestAssureD(TM) 25-OH VIT D, (D2,D3), LC/MS/MS is recommended: order code 21266 (patients >2yrs). For more information on this test, go to: http://education.[employer]/faq/ZRM102 (This link is being provided for informational/educational purposes only.) 07/07/2015 11:5 5 AM EDT 07/07/2015 7:19 PM EDT Narrative Resulting Agency Comment [id number] Alison Francis MD LABORATORY Final Result [facility] [address] [place] [address] documented in this encounter Visit Diagnoses Diagnosis Vitamin D deficiency Chronic Renal Insufficiency Hyperlipidemia; LDL Goal < 130 Other and unspecified hyperlipidemia documented in this encounter Additional Health Concerns Infection Onset Date Last Indicated Resolved Time COVID-19 Confirmed 07/11/2019 07/11/2019 0 8:12 PM EDT documented as of this encounter Care Teams Engineer Intern Relationship Specialty Start Date End Date Alison Francis MD PCP - General 03/20/10 09/01/15 Shreyas Orellana MD PCP - General Internal Medicine 09/02/15 07/07/19 Ashanti Kumar MD PCP - General Family Medicine 07/08/19 07/09/19 Shreyas Orellana MD PCP - General Internal Medicine 07/10/19 09/06/19 Ashanti Kumar MD PCP - General Family Medicine 09/07/19 07/12/20 Vale Walls NP [address] [place] [address] PCP - General Geriatrics 07/13/20 Chastity Cortes MD [address] [place] [address] PCP - Backup PCP Geriatrics 10/23/20 03/30/21 Vale Walls NP [address] [place] [address] PCP - Backup PCP Geriatrics 10/06/21 documented as of this encounter
--- OUTSIDE RECORDS SUMMARY | 2024-05-10 10:10 | XMS_ITS | Encounter Summary ---
Author Organization [facility] Address [address] [place] [address] Care Team Providers Care Food Dehydrator Operator Name Role Phone Vale Walls Primary Care Provider [phone] Reason for Visit * Reason Onset Date Comments [facility] [place] ED Escalation 03/11/2024 Encounter Details Date Type Department Care Team (Late st Contact Info) Description 03/11/2024 Telephone [facility] [address] [place], [place] [phone] Telephone Intake, Staff [facility] [place] ED Escalation Social History Tobacco Use Types [...] EST ASHOK Patient was seen in the [facility] ED on Monday03/09/24 with severe low back pain. CT shows sacral alarfractures. She is scheduled on 04/03/23, but ED note states within 2 weeks and daughter states patient is in severe pain. Oxycodone does not help the pain at all. Please call daughter Deborah at [phone] to assist with scheduling, as [facility] does not have anything sooner. Thank you documented in this encounter Plan of Treatment Upcoming Encounters Date Type Department Care Team (Late st Contact Info) Description 05/17/2024 11:00 AM EST Office Visit [facility] [address] [place] [address] Awning Installer: Marcia Orlando MD [address] [place] [address] Yesica Mi PA [address] [place] [address] 07/11/2024 3:20 PM EDT Follow-Up [facility] A [address] [place] [address] Piero Hilton MD [address] [place] [address] documented as of this encounter Visit Diagnoses Not on filedocumented in this encounter Care Teams Food Dehydrator Operator Relationship Specialty Start Date End Date Vale Walls [address] [place] [address] PCP - General Nurse Practitioner 03/08/24 documented as of this encounter
--- OUTSIDE RECORDS SUMMARY | 2024-05-10 10:10 | XMS_ITS | Encounter Summary ---
Author Organization [facility] Address [address] [place] [address] Care Team Providers Care C Unix Developer Name Role Phone Shreyas Orellana MD Primary Care Provider UnavailAshanti Smith MD Primary Care Provider [phone] Shreyas Orellana MD Primary Care Provider UnavailAshanti Smith MD Primary Care Provider Vale Walls NP Primary Care Provider Chastity Cortes MD Unavailable [phone] Vale Walls NP Unavailable Encounter Details Date Type Department Care Team (Late st Contact Info) Description 08/30/2016 Orders Only July Internal Medicine [address] [place] [phone] Shreyas Orellana MD Social History Tobacco Use [...] as of this encounter Progress Notes * Shreyas Orellana MD - 09/04/2016 1:36 PM EDT Call pt k is 3. Adv [id number] qd x one week book basic in one week. Call rx vit d 50,000/week x 12 * Oskar Mckeon - 08/31/2016 4:25 PM EDT Await PCP to evaluate and treat * Juan Jorgensen, DOUG - 08/31/2016 4:[address] Mckeon Please review Creatine results as pt last test was in 2014 and was WNL Is this ok to wait until PCP return? documented in this encounter Plan of Treatment Not on file documented as of this encounter Goals Goal Patient Goal Type Associated Problems Recent Progress Patient-Stated? Author Blood Pressure < 140/90 Blood Pressure 158/66( 024 3:45 PM EST) No Marsha Guzman CMA documented as of this encounter Procedures * Due to [place] [employer] law, this organization might not be sharing negative HIV tests. Procedure Name Priority Date/Time Associated Diagnosis Comments VITAMIN D, 25-HYDROXY, TOTAL, IMMUNOASSAY Routine 08/30/2016 10:41 AM EDT Vitamin D deficiency LIPID PANEL WITH REFLEX TO DIRECT LDL Routine 08/30/2016 10:41 AM EDT Lipids blood increased BASIC METABOLIC PANEL WITH (GFR) Routine 08/30/2016 10:41 AM EDT Encounter for long-term (current) use of high-risk medication documented in this encounter Results * Due to [place] [employer] law, this organization might not be sharing negative HIV tests. * (ABNORMAL) VITAMIN D, 25-HYDROXY, TOTAL, IMMUNOASSAY (08/30/2016 10:41 AM EDT) Vitamin D, 25-OH, Total 16(L) 30 - 100 ng/mL [facility] Comment: Vitamin D Status ? 25-OH Vitamin D: Deficiency: ?<20 ng/mL Insufficiency: ? 20 - 29 ng/mL Optimal: ? > or = 30 ng/mL For 25-OH Vitamin D testing on patients on D2-supplementation and patients for whom quantitation of D2 and D3 fractions is required, the QuestAssureD(TM) 25-OH VIT D, (D2,D3), LC/MS/MS is recommended: order code 49120 (patients >2yrs). For more information on this test, go to: http://education.[employer]/faq/BHS607 (This link is being provided for informational/educational purposes only.) 08/30/2016 10:4 1 AM EDT 08/30/2016 2:54 PM EDT Narrative Resulting Agency Comment [id number] Shreyas Orellana MD LABORATORY Final Result [facility] [address] [place] [address] * (ABNORMAL) BASIC METABOLIC PANEL WITH (GFR) (08/30/2016 10:41 AM EDT) [facility] [address] Glucose 111(H) 65 - 99 mg/dL [facility] Comment: ? Fasting reference interval For someone without known diabetes, a glucose value between 100 and 125 mg/dL is consistent with prediabetes and should be confirmed with a follow-up test. Urea Nitrogen Blood (BUN) 32(H) 7 - 25 mg/dL [facility] Creatinine 1.26(H) 0.60 - 0.93 mg/dL [facility] Comment: For patients >49 years of age, the reference limit for Creatinine is approximately 13% higher for people identified as -Vincentian. GFR 41(L) > OR = 60 mL/min/1. 73m2 [facility] GFR () 47(L) > OR = 60 mL/min/1. 73m2 [facility] BUN/Creatinine Ratio 25(H) 6 - 22 (calc) [facility] Sodium 140 135 - 146 mmol/L [facility] Potassium 3.1(L) 3.5 - 5.3 mmol/L [facility] Chloride 103 98 - 110 mmol/L [facility] Carbon dioxide 26 20 - 31 mmol/L [facility] Calcium 9.6 8.6 - 10.4 mg/dL [facility] 08/30/2016 10:4 1 AM EDT 08/30/2016 2:54 PM EDT Narrative [facility] - 08/30/2016 5:29 PM EDT Please note that this estimated [...] needs for GFR calculation. Resulting Agency Comment [id number] Shreyas Orellana MD LABORATORY Final Result Performing Organization Address [facility] de Phone Number [facility] [address] [place] [address] * (ABNORMAL) LIPID PANEL WITH REFLEX TO DIRECT LDL (08/30/2016 10:41 AM EDT) Cholesterol 215(H) 125 - 200 mg/dL [facility] [...] 2:54 PM EDT Narrative Resulting Agency Comment [id number] Shreyas Orellana MD LABORATORY Final Result Performing Organization Address [facility] de Phone Number [facility] [address] [place] [address] documented in this encounter Visit Diagnoses Diagnosis Lipids blood increased Other and unspecified hyperlipidemia Encounter for long-term (current) use of high-risk medication Encounter for long-term (current) use of other medications Vitamin D deficiency documented in this encounter Additional Health Concerns Infection Onset Date Last Indicated Resolved Time COVID-19 Confirmed 07/11/2019 07/11/2019 0 8:12 PM EDT documented as of this encounter Care Teams C Unix Developer Relationship Specialty Start Date End Date Shreyas Orellana MD PCP - General Internal Medicine 09/02/15 07/07/19 Ashanti Kumar MD PCP - General Family Medicine 07/08/19 07/09/19 Shreyas Orellana MD PCP - General Internal Medicine 07/10/19 09/06/19 Ashanti Kumar MD PCP - General Family Medicine 09/07/19 07/12/20 Vale Walls NP [address] [place] [address] PCP - General Geriatrics 07/13/20 Chastity Cortes MD [address] [place] [address] PCP - Backup PCP Geriatrics 10/23/20 03/30/21 Vale Walls NP [address] [place] [address] PCP - Backup PCP Geriatrics 10/06/21 documented as of this encounter
--- OUTSIDE RECORDS SUMMARY | 2024-05-10 10:10 | XMS_ITS | Encounter Summary ---
Author Organization [facility] Address [address] [place] [address] Care Team Providers Care Litigation Legal Secretary Name Role Phone Shreyas Orellana MD Primary Care Provider UnavailAshanti Smith MD Primary Care Provider Shreyas Orellana MD Primary Care Provider UnavailAshanti Smith MD Primary Care Provider Vale Walls NP Primary Care Provider Chastity Cortes MD Unavailable [phone] Vale Walls NP Unavailable Encounter Details Date Type Department Care Team (Late st Contact Info) Description 08/18/2016 Orders Only July Internal Medicine [address] [place] [phone] Shreyas Orellana MD Social History Tobacco Use [...] Guzman CMA documented as of this encounter Results * Due to [place] state law, this organization might not be sharing negative HIV tests. * (ABNORMAL) VITAMIN D, 25-HYDROXY, TOTAL, IMMUNOASSAY (08/30/2016 10:41 AM EDT) Vitamin D, 25-OH, Total 16(L) 30 - 100 ng/mL [facility] Comment: Vitamin D Status ? 25-OH Vitamin D: Deficiency: ?<20 ng/mL Insufficiency: ? 20 - 29 ng/mL Optimal: ? > or = 30 ng/mL For 25-OH Vitamin D testing on patients on D2-supplementation and patients for whom quantitation of D2 and D3 fractions is required, the QuestAssureD(TM) 25-OH VIT D, (D2,D3), LC/MS/MS is recommended: order code 74948 (patients >2yrs). For more information on this test, go to: http://education.Zouxiu/faq/HXR043 (This link is being provided for informational/educational purposes only.) 08/30/2016 10:4 1 AM EDT 08/30/2016 2:54 PM EDT Narrative Resulting Agency Comment [id number] Shreyas Orellana MD LABORATORY Final Result [facility] [address] [place] [address] * (ABNORMAL) BASIC METABOLIC PANEL WITH (GFR) (08/30/2016 10:41 AM EDT) Glucose 111(H) 65 - 99 mg/dL [facility] Comment: ? Fasting reference interval For someone [...] 13% higher for people identified as -[place]uvian. GFR 41(L) > OR = 60 mL/min/1. [...] needs for GFR calculation. Resulting Agency Comment [id number] Shreyas Orellana MD LABORATORY Final Result [facility] [address] [place] [address] * (ABNORMAL) LIPID PANEL WITH REFLEX TO [...] 2:54 PM EDT Narrative Resulting Agency Comment [id number] Shreyas Orellana MD LABORATORY Final Result [facility] [address] [place] [address] documented in this encounter Visit Diagnoses Diagnosis Lipids blood increased Other and unspecified hyperlipidemia Encounter for long-term (current) use of high-risk medication Encounter for long-term (current) use of other medications Vitamin D deficiency Lipids blood increased Other and unspecified hyperlipidemia Encounter for long-term (current) use of high-risk medication Encounter for long-term (current) use of other medications Vitamin D deficiency documented in this encounter Additional Health Concerns Infection Onset Date Last Indicated Resolved Time COVID-19 Confirmed 07/11/2019 07/11/2019 0 8:12 PM EDT documented as of this encounter Care Teams Litigation Legal Secretary Relationship Specialty Start Date End Date Shreyas Orellana MD PCP - General Internal Medicine 09/02/15 07/07/19 Ashanti Kumar MD PCP - General Family Medicine 07/08/19 07/09/19 Shreyas Orellana MD PCP - General Internal Medicine 07/10/19 09/06/19 Ashanti Kumar MD PCP - General Family Medicine 09/07/19 07/12/20 Vale Walls NP [address] [place] [address] PCP - General Geriatrics 07/13/20 Chastity Cortes MD [address] [place] [address] PCP - Backup PCP Geriatrics 10/23/20 03/30/21 Vale Walls NP [address] [place] [address] PCP - Backup PCP Geriatrics 10/06/21 documented as of this encounter
--- OUTSIDE RECORDS SUMMARY | 2024-05-10 10:10 | XMS_ITS | Encounter Summary ---
Author Organization [facility] Address [address] [place] [address] Care Team Providers Care Tankage Supervisor Name Role Phone Alison Francis MD Primary Care Provider [phone] Alison Francis MD Primary Care Provider [phone] Shreyas Orellana MD Primary Care Provider UnavailAshanti Smith MD Primary Care Provider Shreyas Orellana MD Primary Care Provider UnavailAshanti Smith MD Primary Care Provider [phone] Vale Walls PROFILING MACHINE SET UP OPERATOR TOOL Primary Care Provider Chastity Cortes MD Unavailable Vale Walls PROFILING MACHINE SET UP OPERATOR TOOL Unavailable Encounter Details Date Type Department Care Team (Late st Contact Info) Description 08/15/2008 Orders Only May Internal Medicine [address] [place] [phone] Alison Francis MD [address] [place] [address] [id number] Social History Tobacco Use Types Packs/Day Years [...] of this encounter Procedures * Due to [place] [employer] law, this organization might not be sharing negative HIV tests. Procedure Name Priority Date/Time Associated Diagnosis Comments CARDIAC RISK/LIPID PROFILE I Routine 08/15/2008 Hypertension Fungal Dermatitis BASIC METABOLIC PANEL Routine 08/15/2008 Hypertension Fungal Dermatitis CBC 5 PART DIFF Routine 08/15/2008 Hypertension Fungal Dermatitis ALANINE AMINOTRANSFERASE (ALT), SERUM Routine 08/15/2008 Hypertension Fungal Dermatitis ASPARTATE AMINOTRANSFERASE (AST), SERUM Routine 08/15/2008 Hypertension Fungal Dermatitis TSH, THYROTROPIN Routine 08/15/2008 Hypertension Fungal Dermatitis T4, FREE THYROXINE Routine 08/15/2008 Hypertension Fungal Dermatitis MAGNESIUM Routine 08/15/2008 Back Pain Leg Cramps VITAMIN B12 Routine 08/15/2008 Hypertension Fungal Dermatitis VITAMIN D, 25-HYDROXY, LC/MS/MS Routine 08/15/2008 Hypertension Fungal Dermatitis documented in this encounter Results * Due to [place] [employer] law, this organization might not be sharing negative HIV tests. * MAGNESIUM (08/15/2008) MAGNESIUM 2.0 1.5 - 2.5 MG/DL 08/15/2008 08/15/2008 5:5 3 PM EDT Alison Francis MD LABORATORY Final Result * VITAMIN B12 (08/15/2008) VITB12 457 200 - 1100 PG/ML 08/15/2008 08/15/2008 5:5 3 PM EDT Result [facility] Alison Francis MD LABORATORY Final Result * VITAMIN D, 25-HYDROXY, LC/MS/MS (08/15/2008) Vitamin D, 25-OH, Total 27 20 - 100 NG/ML VITAMIN D, 25-OH, D3 (CHOLECALCIFEROL ) 27 NG/ML VITAMIN D, 25-OH, D2 (CALCIFEROL) <4 NG/ML Comment: 25-OHD3 INDICATES BOTH ENDOGENOUS PRODUCTION AND SUPPLEMENTATION. 25-OHD2 IS AN INDICATOR OF EXOGENOUS SOURCES SUCH DIET OR SUPPLEMENTATION. THERAPY IS BASED ON MEASUREMENT OF TOTAL 25-OHD, WITH LEVELS <20 NG/ML INDICATIVE OF VITAMIN D DEFICIENCY WHILE LEVELS BETWEEN 20 NG/ML AND 30 NG/ML SUGGEST INSUFFICIENCY. OPTIMAL LEVELS ARE >30 NG/ML. 08/15/2008 08/15/2008 5:5 3 PM EDT Result [facility] Alison Francis MD LABORATORY Final Result * T4, FREE THYROXINE (08/15/2008) FT4 1.2 0.8 - 1.8 NG/DL 08/15/2008 08/15/2008 5:5 3 PM EDT Result [facility] Alison Francis MD LABORATORY Final Result * TSH (THYROTROPIN) (08/15/2008) TSH, THYROTROPIN 2.63 0.40 - 4.50 UIU/ML 08/15/2008 08/15/2008 5:5 3 PM EDT Result [facility] Alison Francis MD LABORATORY Final Result * ALANINE AMINOTRANSFERASE (ALT), SERUM (08/15/2008) ALT (SGPT) 23 6 - 40 U/L 08/15/2008 08/15/2008 5:5 3 PM EDT Result [facility] us Alison Francis MD LAB SAME DAY RESULT Final Resul t * ASPARTATE AMINOTRANSFERASE (AST), SERUM (08/15/2008) AST (SGOT) 22 10 - 35 U/L 08/15/2008 08/15/2008 5:5 3 PM EDT us Alison Francis MD LAB SAME DAY RESULT Final Resul t * (ABNORMAL) CBC 5 PART DIFF (08/15/2008) WHITE BLOOD COUNT 6.5 3.8 - 10.8 THOUS/UL RBC 4.34 3.80 - 5.10 MIL/UL Hemoglobin 13.0 11.7 - 15.5 G/DL HCT (HEMATOCRIT) 37.9 35.0 - 45.0 % MCV 87.3 80.0 - 100.0 FL MCH 29.9 27.0 - 33.0 PG MCHC 34.3 32.0 - 36.0 G/DL BAND % 0 0 - 5 % NEUTROPHIL % 57 48 - 75 % LYMPHOCYTE % 29 17 - 40 % MONOCYTE % 6 0 - 14 % EOSINOPHIL % 7(H) 0 - 5 % BASOPHIL % 1 0 - 3 % ATYPICAL LYMPHOCYTE % 0 0 - 5 % PLATELETS 232 140 - 400 THOUS/UL BANDS # 0 0 - 750 CELLS/MCL NEUTROPHILS # 3705 1500 - 7800 CELLS/MCL LYMPHOCYTES # 1885 850 - 3900 CELLS/MCL MONOCYTES # 390 200 - 950 CELLS/MCL EOSINOPHILS # 455 15 - 550 CELLS/MCL BASOPHILS # 65 0 - 200 CELLS/MCL ATYPICAL LYMPHOCYTES # 0 0 - 200 CELLS/MCL RDW 13.5 11.0 - 15.0 % MPV 8.2 7.5 - 11.5 FL 08/15/2008 08/15/2008 5:5 3 PM EDT us Alison Francis MD LAB SAME DAY RESULT Final Resul t * (ABNORMAL) BASIC METABOLIC PANEL (08/15/2008) CALCIUM 9.1 8.6 - 10.2 MG/DL BUN [...] t * (ABNORMAL) CARDIAC RISK/LIPID PROFILE I (08/15/2008) Pathologist [facility] CHOLESTEROL, TOTAL 238(H) 125 - 200 MG/DL [...] Unspecified essential hypertension Fungal dermatitis Dermatomycosis, unspecified Back pain Backache, unspecified Leg cramps Cramp of limb documented in this encounter Additional Health Concerns Infection Onset Date Last Indicated Resolved Time COVID-19 Confirmed 07/11/2019 07/11/2019 0 8:12 PM EDT documented as of this encounter Care Teams Tankage Supervisor Relationship Specialty Start Date End Date Alison [...] Family Medicine 09/07/19 07/12/20 Vale Walls NP [address] [place] [address] PCP - General Geriatrics 07/13/20 Chastity Cortes MD [address] [place] [address] PCP - Backup PCP Geriatrics 10/23/20 03/30/21 Vale Walls NP [address] [place] [address] PCP - Backup PCP Geriatrics 10/06/21 documented as of this encounter
--- OUTSIDE RECORDS SUMMARY | 2024-05-10 10:10 | XMS_ITS | Encounter Summary ---
Author Organization [facility] Address [address] [place] [address] Care Team Providers Care Pi/Senior Research Associate Name Role Phone Alison Francis MD Primary Care Provider [phone] Shreyas Orellana MD Primary Care Provider UnavailAshanti Smith MD Primary Care Provider [phone] Shreyas Orellana MD Primary Care Provider UnavailAshanti Smith MD Primary Care Provider Vale Walls BRASS POLISHER Primary Care Provider Chastity Cortes MD Unavailable [phone] Vale Walls BRASS POLISHER Unavailable [phone] Encounter Details Date Type Department Care Team (Late st Contact Info) Description 07/13/2015 Orders Only July Internal Medicine [address] [place] [address] Alison Francis MD [address] [place] [address] Social History Tobacco Use Types Packs/Day Years [...] encounter Progress Notes * Alison Francis - 07/14/2015 4:21 PM EDTQuick Note: Result letter was mailed to [...] this encounter Procedures * Due to [place] [employer] law, this organization might not be sharing negative HIV tests. Procedure Name Priority Date/Time Associated Diagnosis Comments POTASSIUM, SERUM Routine 07/13/2015 10:5 1 AM EDT Low serum potassium level documented in this encounter Results * Due to [place] [employer] law, this organization might not be sharing negative HIV tests. * POTASSIUM, SERUM (07/13/2015 10:51 AM EDT) Potassium 4.6 3.5 - 5.3 mmol/L [facility] Comment:{POTASSIUM {[id number]) 07/13/2015 10:5 1 AM EDT 07/13/2015 5:29 PM EDT Narrative Resulting Agency Comment [id number] Alison Francis MD LAB SAME DAY RESULT Final Resul t Performing Organization Address City/State/[facility] Co de Phone Number [facility] [address] [place] [address] documented in this encounter Visit Diagnoses Diagnosis Low serum potassium level documented in this encounter Additional Health Concerns Infection Onset Date Last Indicated Resolved Time COVID-19 Confirmed 07/11/2019 07/11/2019 0 8:12 PM EDT documented as of this encounter Care Teams Pi/Senior Research Associate Relationship Specialty Start Date End Date Alison Francis MD PCP - General 03/20/10 09/01/15 Shreyas Orellana MD PCP - General Internal Medicine 09/02/15 07/07/19 Ashanti Kumar MD PCP - General Family Medicine 07/08/19 07/09/19 Shreyas Orellana MD PCP - General Internal Medicine 07/10/19 09/06/19 Ashanti Kumar MD PCP - General Family Medicine 09/07/19 07/12/20 Vale Walls NP [address] [place] [address] PCP - General Geriatrics 07/13/20 Chastity Cortes MD [address] [place] [address] PCP - Backup PCP Geriatrics 10/23/20 03/30/21 Vale Walls NP [address] [place] [address] PCP - Backup PCP Geriatrics 10/06/21 documented as of this encounter
--- OUTSIDE RECORDS SUMMARY | 2024-05-10 10:10 | XMS_ITS | Encounter Summary ---
Author Organization [facility] Address [address] [place] [address] Care Team Providers Care Log Sawyer Name Role Phone Vale Walls Primary Care Provider [phone] Reason for Referral * Consultation (Routine) - Authorized Specialty Diagnoses / Procedures Referred By Contac t Referred To Contact Orthopaedic Surgery Diagnoses Radiculopathy of lumbar region Holli Fenton PA [address] [place] [address] Phone: tel: fax: Piero Hilton MD [address] [place] [address] Phone: tel: fax: Referral ID Status Reason Start Date Expiration Date V isits Requested Visits Authorized [id number] Authorized 04/12/2024 10/12/2025 6 6 Encounter Details Date Type Department Care Team (Late st Contact Info) Description 04/12/2024 Orders Only [facility] B [address] [place] [address] Holli Fenton PA [address] [place] [address] Radiculopathy of lumbar region (Primary Dx) Social [...] Upcoming Encounters Date Type Department Care Team ([facility] st Contact Info) Description 05/17/2024 11:00 AM EST Office Visit [facility] [address] [place] [address] Menagerie Caretaker: Marcia Orlando MD [address] [place] [address] Yesica Mi PA [address] [place] [address] 07/11/2024 3:20 PM EDT Follow-Up [facility] A [address] [place] [address] Piero Hilton MD [address] [place] [address] Scheduled Referrals Name Type Priority Associated Diagnoses Order Schedule Ambulatory referral to Pain Management Outpatient Referral Routine Radiculopathy of lumbar region Expected: 04/12/2024, Expires: 10/10/2024 documented as of this encounter Visit Diagnoses Diagnosis Radiculopathy of lumbar region- Primary documented in this encounter Care Teams Log Sawyer Relationship Specialty Start Date End Date Vale Walls [address] [place] [address] PCP - General Nurse Practitioner 03/08/24 documented as of this encounter
--- OUTSIDE RECORDS SUMMARY | 2024-05-10 10:10 | XMS_ITS | Encounter Summary ---
Author Organization [facility] Address [address] [place] [address] Care Team Providers Care Qa Tester Name Role Phone Shreyas Orellana MD Primary Care Provider UnavailAshanti Smith MD Primary Care Provider Shreyas Orellana MD Primary Care Provider UnavailAshanti Smith MD Primary Care Provider [phone] Vale Walls NP Primary Care Provider [phone] Chastity Cortes MD Unavailable [phone] Vale Walls NP Unavailable Encounter Details Date Type Department Care Team (Late st Contact Info) Description 10/04/2016 Orders Only July Internal Medicine [address] [place] [phone] Shreyas Orellana MD Social History Tobacco Use [...] Progress Notes * Shreyas Orellana MD - 10/05/2016 3:59 PM EDT Call pt k is low again should d/c hctz Will adv different med for htn call rx verapamil 80/ day documented in this encounter Plan of Treatment Not on file documented as of this encounter Goals Goal Patient Goal Type Associated Problems Recent Progress Patient-Stated? Author Blood Pressure < 140/90 Blood Pressure 158/66( 024 3:45 PM EST) Marsha Farah CMA documented as of this encounter Procedures * Due to [place] [employer] law, this organization might not be sharing negative HIV tests. Procedure Name Priority Date/Time Associated Diagnosis Comments BASIC METABOLIC PANEL WITH (GFR) Routine 10/04/2016 1:41 PM EDT Hypokalemia documented in this encounter Results * Due to [place] [employer] law, this organization might not be sharing negative HIV tests. * (ABNORMAL) BASIC METABOLIC PANEL WITH (GFR) (10/04/2016 1:41 PM EDT) Glucose 98 65 - 99 mg/dL [facility] Comment:Fasting reference in terval Urea Nitrogen Blood (BUN) 28(H) 7 - 25 mg/dL [facility] Creatinine 0.88 0.60 - 0.93 mg/dL [facility] Comment: For patients >49 years of age, the reference limit for Creatinine is approximately 13% higher for people identified as -[place]. GFR 63 > OR = 60 mL/min/1. 73m2 [facility] GFR () 73 > OR = 60 mL/min/1. 73m2 [facility] BUN/Creatinine Ratio 32(H) 6 - 22 (calc) [facility] Sodium 139 135 - 146 mmol/L [facility] Potassium 3.1(L) 3.5 - 5.3 mmol/L [facility] Chloride 103 98 - 110 mmol/L [facility] Carbon dioxide 24 20 - 31 mmol/L [facility] Calcium 9.2 8.6 - 10.4 mg/dL [facility] 10/04/2016 1:41 PM EDT 10/04/2016 9:23 PM EDT Narrative [facility] - 10/05/2016 2:57 AM EDT Please note that this estimated [...] needs for GFR calculation. Resulting Agency Comment [id number] Shreyas Orellana MD LABORATORY Final Result [facility] [address] [place] [address] documented in this encounter Visit Diagnoses Diagnosis Hypokalemia Hypopotassemia documented in this encounter Additional Health Concerns Infection Onset Date Last Indicated Resolved Time COVID-19 Confirmed 07/11/2019 07/11/2019 0 8:12 PM EDT documented as of this encounter Care Teams Qa Tester Relationship Specialty Start Date End Date Shreyas Orellana MD PCP - General Internal Medicine 09/02/15 07/07/19 Ashanti Kuamr MD PCP - General Family Medicine 07/08/19 07/09/19 Shreyas Orellana MD PCP - General Internal Medicine 07/10/19 09/06/19 Ashanti Kumar MD PCP - General Family Medicine 09/07/19 07/12/20 Vale Walls NP [address] [place] [address] PCP - General Geriatrics 07/13/20 Chastity Cortes MD [address] [place] [address] PCP - Backup PCP Geriatrics 10/23/20 03/30/21 Vale Walls NP [address] [place] [address] PCP - Backup PCP Geriatrics 10/06/21 documented as of this encounter
--- OUTSIDE RECORDS SUMMARY | 2024-05-10 10:10 | XMS_ITS | Encounter Summary ---
Author Organization [facility] Address [address] [place] [address] Care Team Providers Care Electrical Maintenance Engineer Name Role Phone Shreyas Orellana MD Primary Care Provider UnavailAshanti Smith MD Primary Care Provider Shreyas Orellana MD Primary Care Provider UnavailAshanti Smith MD Primary Care Provider Vale Walls NP Primary Care Provider Chastity Cortes MD Unavailable [phone] Vale Walls NP Unavailable Encounter Details Date Type Department Care Team (Late st Contact Info) Description 09/08/2016 Orders Only July Internal Medicine [address] [place] [phone] Shreyas Orellana MD Social History Tobacco Use [...] of this encounter Results * Due to [place] state law, this organization might not be [...] approximately 13% higher for people identified as -Guamanian. GFR 63 > OR = 60 mL/min/1. [...] needs for GFR calculation. Resulting Agency Comment [id number] Shreyas Orellana MD LABORATORY Final Result [facility] [address] [place] [address] documented in this encounter Visit Diagnoses Diagnosis Hypokalemia Hypopotassemia Hypokalemia Hypopotassemia documented in this encounter Additional Health Concerns Infection Onset Date Last Indicated Resolved Time COVID-19 Confirmed 07/11/2019 07/11/2019 0 8:12 PM EDT documented as of this encounter Care Teams Electrical Maintenance Engineer Relationship Specialty Start Date End Date Shreyas Orellana MD PCP - General Internal Medicine 09/02/15 07/07/19 Ashanti Kumar MD PCP - General Family Medicine 07/08/19 07/09/19 Shreyas Orellana MD PCP - General Internal Medicine 07/10/19 09/06/19 Ashanti Kumar MD PCP - General Family Medicine 09/07/19 07/12/20 Vale Walls NP [address] [place] [address] PCP - General Geriatrics 07/13/20 Chastity Cortes MD [address] [place] [address] PCP - Backup PCP Geriatrics 10/23/20 03/30/21 Vale Walls NP [address] [place] [address] PCP - Backup PCP Geriatrics 10/06/21 documented as of this encounter
--- OUTSIDE RECORDS SUMMARY | 2024-05-10 10:10 | XMS_ITS | Encounter Summary ---
Author Organization [facility] Address [address] [place] [address] Care Team Providers Care Exchange Architect Name Role Phone Vale Walls Primary Care Provider [phone] Reason for Visit * Reason Onset Date Comments PAC Appt Request - Established [place] 04/12/19 Encounter Details Date Type Department Care Team (Late st Contact Info) Description 04/12/2024 Telephone [facility] B [address] [phone] Telephone Intake, Staff PAC Appt Request - [...] an injection for her mom. Please contact Deborha at [phone]. Thank you documented in this encounter Plan of Treatment Upcoming Encounters Date Type Department Care Team ([facility] st Contact Info) Description 05/17/2024 11:00 AM EST Office Visit [facility] [address] [place] [address] Warehouse Incentive Selector: Marcia Orlando MD [address] [place] [address] Yesica Mi PA [address] [place] [address] 07/11/2024 3:20 PM EDT Follow-Up [facility] A [address] [place] [address] Piero Hilton MD [address] [place] [address] documented as of this encounter Visit Diagnoses Not on filedocumented in this encounter Care Teams Exchange Architect Relationship Specialty Start Date End Date Vale Walls [address] [place] [address] PCP - General Nurse Practitioner 03/08/24 documented as of this encounter
--- OUTSIDE RECORDS SUMMARY | 2024-05-10 10:10 | XMS_ITS | Encounter Summary ---
Author Organization [facility] Address [address] [place] [address] Care Team Providers Care Licensed Funeral Director Name Role Phone Vale Walls Primary Care Provider [phone] Encounter Details Date Type Department Care Team (Late st Contact Info) Description 04/18/2024 Telephone [facility] [address] [place], [place] [phone] Holli Fenton PA [address] [place], [place] [phone] Social History Tobacco Use Types Packs/Day Years [...] Description 05/17/2024 11:00 AM EST Office Visit [facility] [address] [place] [address] Ball Mill Mixer: Marcia Orlando MD [address] [place] [address] Yesica Mi PA [address] [place] [address] 07/11/2024 3:20 PM EDT Follow-Up [facility] A [address] [place] [address] Piero Hilton MD [address] [place] [address] documented as of this encounter Visit Diagnoses Not on filedocumented in this encounter Care Teams Licensed Funeral Director Relationship Specialty Start Date End Date Vale Walls [address] [place] [address] PCP - General Nurse Practitioner 03/08/24 documented as of this encounter
--- OUTSIDE RECORDS SUMMARY | 2024-05-10 10:10 | XMS_ITS | Encounter Summary ---
Author Organization [facility] Address [address] [place] [address] Care Team Providers Care Tractor Distributor Name Role Phone Vale Walls Primary Care Provider [phone] Reason for Visit * Consultation (Routine) - Authorized Specialty Diagnoses / Procedures Referred By Marie t Referred To Contact Orthopedic Surgery / Orthopaedic Surgery Diagnoses sciatica of lower back shooting down into the right leg , xray at [facility], on going pain but has been getting worse over the past month, H/o surgery in 2007 Procedures Jose Echavarria MD [address] [place] [address] Phone: tel: fax: Referral ID Status Reason Start Date Expiration Date V isits Requested Visits Authorized [id number] Authorized 03/25/2024 03/25/2025 6 6 Encounter Details Date Type Department Care Team (Late st Contact Info) Description 04/11/2024 1:00 PM [facility] Telehealth [facility] [address] [employer], [place] [id number] Holli Fenton PA [address] [place] [address] Radiculopathy of lumbar region (Primary Dx); Spinal [...] was spent on counseling and care coordination. @sd documented in this encounter Plan of Treatment Upcoming Encounters Date Type Department Care Team (Late st Contact Info) Description 05/17/2024 11:00 AM EST Office Visit [facility] [address] [place] [address] Biological Sciences Instructor: Marcia Orlando MD [address] [place] [address] Yesica Mi PA [address] [place] [address] 07/11/2024 3:20 PM EDT Follow-Up [facility] A [address] [place] [address] Piero Hilton MD [address] [place] [address] documented as of this encounter Visit Diagnoses Diagnosis Radiculopathy of lumbar region- Primary Spinal stenosis of lumbar region with neurogenic claudication Sacral insufficiency fracture with routine healing documented in this encounter Care Teams Tractor Distributor Relationship Specialty Start Date End Date Yola Wallsa [address] [place] [address] PCP - General Nurse Practitioner 03/08/24 documented as of this encounter
== END 2024-05-10 08:20 | disposition home or self-care (01) ==
LOC: HO.HOSX 08:19
PROVIDERS: Visit Provider Neurological Surgery
DX: M79.605 Pain in left leg (principal); M41.56 Other secondary scoliosis, lumbar region
CPT/HCPCS: 72110; 99202

== ENCOUNTER → 2024-05-10 09:36 | Outpatient (BNV) | payer MEDICARE, SELFPAY | PROVIDERS: Visit Provider Radiology Diagnostic Radiology | DX: M41.56 Other secondary scoliosis, lumbar region (principal); M85.80 Other specified disorders of bone density and structure, unspecified site; M47.896 Other spondylosis, lumbar region | CPT/HCPCS: 72110 ==

== ENCOUNTER → 2024-06-10 09:11 | Outpatient (BNV) | payer MEDICARE, SELFPAY | PROVIDERS: Visit Provider Internal Medicine Cardiovascular Disease | DX: R94.31 Abnormal electrocardiogram [ECG] [EKG] (principal) | CPT/HCPCS: 93010 ==

== ENCOUNTER 2024-06-13 08:08 | Day surgery (SDC) | payer MEDICARE, MEDICAID, SELFPAY ==
--- OUTSIDE RECORDS SUMMARY | 2024-05-15 10:17 | XMS_ITS | Encounter Summary ---
Author Organization [facility] Address [address] [place] [address] Care Team Providers Care Soil Sampler Name Role Phone Alison Francis MD Primary Care Provider [phone] Alison Francis MD Primary Care Provider [phone] Regan Darling MD Primary Care Provider [phone] Shreyas Orellana MD Primary Care Provider Unavaila Ashanti Shetty MD Primary Care Provider [phone] Shreyas Orellana MD Primary Care Provider UnavailAshanti Smith MD Primary Care Provider [phone] Vale Walls NP Primary Care Provider [phone] Chastity Cortes MD Unavailable [phone] CouVale badillo CONCAVER Unavailable [phone] Encounter Details Date Type Department Care Team (Late st Contact Info) Description 09/26/2005 Orders Only [facility] Internal Medicine [address] [place] [id number] Regan Darling MD [address] [place] [address] Social History Tobacco Use Types Packs/Day Years [...] this encounter Procedures * Due to [employer] law, this organization might not be sharing negative HIV tests. Procedure Name Priority Date/Time Associated Diagnosis Comments CHEMISTRY PANEL CP-7 Routine 09/26/2005 10:00 AM EDT Hypertension documented in this encounter Results * Due to [employer] law, this organization might not be sharing negative HIV tests. * (ABNORMAL) CHEMISTRY PANEL CP-7 (09/26/2005 10:00 AM EDT) CALCIUM 9.9 8.5 - 10.4 MG/DL [facility] (CLIA# [id number]) BUN 24 7 - 25 MG/DL [facility] (CLIA# [id number]) CREATININE 0.8 0.5 - 1.2 MG/DL [facility] (CLIA# [id number]) BUN/Creatinine Ratio 30(H) 6 - 25 [facility] (CLIA# [id number]) Glucose 92 65 - 99 MG/DL [facility] (CLIA# [id number]) SODIUM 140 135 - 146 MMOL/L [facility] (CLIA# [id number]) POTASSIUM 3.7 3.5 - 5.3 MMOL/L [facility] (CLIA# [id number]) CHLORIDE 100 98 - 110 MMOL/L [facility] (CLIA# [id number]) CARBON DIOXIDE 25 21 - 33 MMOL/L [facility] (CLIA# [id number]) 09/26/2005 10:0 0 AM EDT 09/26/2005 7:47 PM EDT Regan Darling MD LABORATORY Final Result [facility] (CLIA# [id number]) [address] [place] [address] documented in this encounter Visit Diagnoses Diagnosis Hypertension Unspecified essential hypertension documented in this encounter Additional Health Concerns Infection Onset Date Last Indicated Resolved Time COVID-19 Confirmed 07/11/2019 07/11/2019 0 8:12 PM EDT documented as of this encounter Care Teams Soil Sampler Relationship Specialty Start Date End Date Alison Francis MD PCP - General 03/20/10 09/01/15 Alison Francis MD PCP - General 07/02/07 03/19/10 Regan Darling MD [address] [place] [address] PCP - General 06/11/05 07/01/07 Shreyas Orellana MD [address] [place] [address] PCP - General Internal Medicine 09/02/15 07/07/19 Ashanti Kumar MD [address] [place] [address] PCP - General Family Medicine 07/08/19 07/09/19 Shreyas Orellana MD [address] [place] [address] PCP - General Internal Medicine 07/10/19 09/06/19 Ashanti Kumar MD [address] [place] [address] PCP - General Family Medicine 09/07/19 07/12/20 Vale Walls NP [address] [place] [address] PCP - General Geriatrics 07/13/20 Chastity Cortes MD [address] [place] [address] PCP - Backup PCP Geriatrics 10/23/20 03/30/21 Vale Walls NP [address] [place] [address] PCP - Backup PCP Geriatrics 10/06/21 documented as of this encounter
--- OUTSIDE RECORDS SUMMARY | 2024-05-15 10:18 | XMS_ITS | Encounter Summary ---
Author Organization [facility] Address [address] [place] [address] Care Team Providers Care Chief Operations Officer Name Role Phone Vale Walls NP Primary Care Provider [phone] Vale Walls NP Unavailable [phone] Reason for Referral * CONSULT AND TREATMENT (Routine) - Authorized Specialty Diagnoses / Procedures Referred By Marie benavidez Referred To Contact Neurosurgery Diagnoses Other secondary scoliosis, lumbar region Vale Walls NP [address] [place] [address] Phone: tel: fax: Balaji Au MD [address] [address] Phone: tel: fax: Referral ID Status Reason Start Date Expiration Date Visits Requested Visits Authorized [id number] Authorized Continuity of Care 05/10/2024 05/10/2025 6 6 Scheduling Instructions Mark Au PH: [phone] FX:[phone] DOS: 05/10/24 Visits: 6 Encounter Details Date Type Department Care Team ([facility] st Contact Info) Description 05/14/2024 Orders Only [facility] [address] [place] [address] Vale Walls NP [address] [place] [address] Social History Tobacco Use Types Packs/Day Years [...] Start Date Job End Date 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 Author Blood Pressure < 140/90 Blood Pressure 158/66( 024 3:45 PM EST) No Marsha Guzman CMA documented as of this encounter Visit Diagnoses Diagnosis Other secondary scoliosis, lumbar region- Primary documented in this encounter Care Teams Chief Operations Officer Relationship Specialty Start Date End Date Vale Walls NP [address] [place] [address] PCP - General Geriatrics 07/13/20 Vale Walls NP [address] [place] [address] PCP - Backup PCP Geriatrics 10/06/21 documented as of this encounter
--- OUTSIDE RECORDS SUMMARY | 2024-05-15 10:18 | XMS_ITS | Encounter Summary ---
Author Organization [facility] Address [address] [place] [address] Care Team Providers Care Credit Administration Specialist Name Role Phone Alison Francis MD Primary Care Provider Shreyas Orellana MD Primary Care Provider UnavailAshanti Smith MD Primary Care Provider Shreyas Orellana MD Primary Care Provider UnavailAshanti Smith MD Primary Care Provider [phone] Vale Walls LARGE ENGINE ASSEMBLER Primary Care Provider [phone] Chastity Cortes MD Unavailable Vale Walls LARGE ENGINE ASSEMBLER Unavailable Encounter Details Date Type Department Care Team (Late st Contact Info) Description 12/15/2014 Orders Only [facility] [address] [place] [address] Alison Francis MD [address] [place] [address] Social History Tobacco Use Types Packs/Day Years [...] 0.40 - 4.50 mIU/L [facility] Comment:{TSH {[id number]) INTERPRETATION SEE NOTE [facility] Comment: {INTERPRETATION {[id number]) TSH within normal range. Consistent with euthyroid patient. Interference from heterophilic antibodies (more common) or autoantibody (less common) should be considered when the TSH value does not fit the clinical picture. TSH with HAMA Treatment (test code 49270) or TSH Antibody (test code 05311) may help identify such interferences. 12/15/2014 11:1 4 AM EDT 12/15/2014 10:17 PM EDT Narrative Resulting Agency Comment [id number] Alison Francis MD LABORATORY Final Result [facility] [address] [place] [address] * (ABNORMAL) VITAMIN D, 25-HYDROXY, LC/MS/MS (12/15/2014 11:14 AM EDT) Vitamin D, 25-OH, Total 22(L) 30 - 100 ng/mL [facility] Comment: {VITAMIN D,25-OH,TOTAL,IA {[id number]) Vitamin D Status ? 25-OH Vitamin D: Deficiency: ?<20 ng/mL Insufficiency: ? 20 - 29 ng/mL Optimal: ? > or = 30 ng/mL For 25-OH Vitamin D testing on patients on D2-supplementation and patients for whom quantitation of D2 and D3 fractions is required, the QuestAssureD(TM) 25-OH VIT D, (D2,D3), LC/MS/MS is recommended: order code 01467 (patients >2yrs). For more information on this test, go to: http://education.Sisteer/faq/EFE677 (This link is being provided for informational/educational purposes only.) 12/15/2014 11:1 4 AM EDT 12/15/2014 10:17 PM EDT Narrative Resulting Agency Comment [id number] us Alison Francis MD LABORATORY Final Result Performing Organization Address [facility] Co de Phone Number [facility] [address] [place] [address] * VITAMIN B12 (CYANOCOBALAMIN), SERUM (12/15/2014 11:14 AM EDT) Vitamin B12 (Cobalamins) 423 200 - 1100 pg/mL [facility] Comment:{VITAMIN B12 {[id number]) 12/15/2014 11:1 4 AM EDT 12/15/2014 10:17 PM EDT Narrative Resulting Agency Comment [id number] us Alison Francis MD LABORATORY Final Result Performing Organization Address [facility] de Phone Number [facility] [address] [place] [address] * BASIC METABOLIC PANEL WITH (GFR) (12/15/2014 11:14 AM EDT) Glucose 97 65 - 99 mg/dL [facility] Comment: {GLUCOSE {[id number]) ? Fasting reference interval Urea Nitrogen Blood (BUN) 21 7 - 25 mg/dL [facility] Comment:{UREA NITROGEN (BUN) {[id number]) Creatinine 0.80 0.60 - 0.93 mg/dL [facility] Comment: {CREATININE {[id number]) For patients >49 years of age, the reference limit for Creatinine is approximately 13% higher for people identified as -Croatian. GFR 72 > OR = 60 mL/min/1 .73m2 [facility] Comment:{eGFR NON-AFR. AMERI CAN {[id number]) GFR () 83 > OR = 60 mL/min/1 .73m2 [facility] Comment:{eGFR AMERIC AN {[id number]) BUN/Creatinine Ratio NOT APPLICABLE 6 - 22 (calc) [facility] Comment:{BUN/CREATININE RATI O {[id number]) Sodium 137 135 - 146 mmol/L [facility] Comment:{SODIUM {[id number]) Potassium 3.7 3.5 - 5.3 mmol/L [facility] Comment:{POTASSIUM {[id number]) Chloride 101 98 - 110 mmol/L [facility] Comment:{CHLORIDE {[id number]) Carbon dioxide 25 19 - 30 mmol/L [facility] Comment:{CARBON DIOXIDE {[id number]) Calcium 9.7 8.6 - 10.4 mg/dL [facility] Comment:{CALCIUM {[id number]) 12/15/2014 11:1 4 AM EDT 12/15/2014 [...] needs for GFR calculation. Resulting Agency Comment [id number] Alison Francis MD LABORATORY Final Result [facility] [address] [place] [address] * (ABNORMAL) LIPID PANEL WITH REFLEX TO DIRECT LDL (12/15/2014 11:14 AM EDT) Cholesterol 219(H) 125 - 200 mg/dL [facility] Comment:{CHOLESTEROL, TOTAL {[id number]) HDL Cholesterol 49 > OR = 46 mg/dL [facility] Comment:{HDL CHOLESTEROL {[id number]) Triglyceride 165(H) <150 mg/dL [facility] Comment:{TRIGLYCERIDES {[id number]) LDL Cholesterol 137(H) <130 mg/dL (calc) [facility] Comment: {LDL-CHOLESTEROL {[id number]) Desirable range <100 mg/dL for patients with CHD or diabetes and <70 mg/dL for diabetic patients with known heart disease. CHOL/HDL Ratio 4.5 < OR = 5.0 (calc) [facility] Comment:{CHOL/HDLC RATIO {[id number]) Cholesterol Non-HDL 170(H) mg/dL (calc) [facility] Comment: {NON HDL CHOLESTEROL {[id number]) Target for non-HDL cholesterol is 30 mg/dL higher than LDL cholesterol target. 12/15/2014 11:1 4 AM EDT 12/15/2014 10:17 PM EDT Narrative Resulting Agency Comment [id number] us Alison Francis MD LABORATORY Final Result [facility] [address] [place] [address] * URINALYSIS, COMPLETE INCLUDES DIPSTICK AND MICROSCOPIC (12/15/2014 11:14 AM EDT) Color (Urine) YELLOW YELLOW [facility] Comment:{COLOR {[id number]) Appearance (Urine) CLEAR CLEAR [facility] Comment:{APPEARANCE {[id number]) Specific gravity (Urine) 1.014 1.001 - 1.035 [facility] Comment:{SPECIFIC GRAVITY {[id number]) pH (Urine) 6.5 5.0 - 8.0 [facility] Comment:{PH {[id number]) Glucose (Urine) NEGATIVE NEGATIVE [facility] Comment:{GLUCOSE {[id number]) Bilirubin (Urine) NEGATIVE NEGATIVE [facility] Comment:{BILIRUBIN {[id number]) Ketones (Urine) NEGATIVE NEGATIVE [facility] Comment:{KETONES {[id number]) Hemoglobin (Urine) NEGATIVE NEGATIVE [facility] Comment:{OCCULT BLOOD {[id number]) Protein (Urine) NEGATIVE NEGATIVE [facility] Comment:{PROTEIN {[id number]) Nitrite (Urine) NEGATIVE NEGATIVE [facility] Comment:{NITRITE {[id number]) Leukocyte esterase (Urine) NEGATIVE NEGATIVE [facility] Comment:{LEUKOCYTE ESTERASE {[id number]) WBC (Urine) NONE SEEN < OR = 5 /HPF [facility] Comment:{WBC {[id number]) RBC (Urine Sed) NONE SEEN < OR = 2 /HPF [facility] Comment:{RBC {[id number]) Epithelial cells.squamous (Urine sed) 0-5 < OR = 5 /HPF [facility] Comment:{SQUAMOUS EPITHELIAL CELLS {[id number]) Bacteria (Urine) NONE SEEN NONE SEEN /HPF [facility] Comment:{BACTERIA {[id number]) Hyaline casts (Urine sed) NONE SEEN NONE SEEN /LPF [facility] Comment:{HYALINE CAST {[id number]) Service comment 01 SEE NOTE [facility] Comment: {COMMENTS {[id number]) The above test was performed; ??evaluate the urinalysis results with caution. ??The urine specimen was received without a preservative. ??Deterioration of formed elements and/or alteration of chemical constituents may have occurred. 12/15/2014 11:1 4 AM EDT 12/15/2014 10:17 PM EDT Narrative Resulting Agency Comment [id number] us Alison Francis MD LAB SAME DAY RESULT Final Resul t [facility] [address] [place] [address] * CBC INCLUDES DIFFERENTIAL AND PLATELET COUNT (12/15/2014 11:14 AM EDT) WBC 6.6 3.8 - 10.8 Thousand/u L [facility] Comment:{WHITE BLOOD CELL CO UNT {[id number]) RBC 4.98 3.80 - 5.10 Million/uL [facility] Comment:{RED BLOOD CELL COUN T {[id number]) Hemoglobin 14.3 11.7 - 15.5 g/dL [facility] Comment:{HEMOGLOBIN {[id number]) Hematocrit 44.0 35.0 - 45.0 % [facility] Comment:{HEMATOCRIT {[id number]) MCV 88.2 80.0 - 100.0 fL [facility] Comment:{MCV {[id number]) MCH 28.8 27.0 - 33.0 pg [facility] Comment:{MCH {[id number]) MCHC 32.6 32.0 - 36.0 g/dL [facility] Comment:{MCHC {[id number]) RDW 13.9 11.0 - 15.0 % [facility] Comment:{RDW {[id number]) PLT 208 140 - 400 Thousand/u L [facility] Comment:{PLATELET COUNT {[id number]) MPV 8.3 7.5 - 11.5 fL [facility] Comment:{MPV {[id number]) Neutrophils # 3505 1500 - 7800 cells/uL [facility] Comment:{ABSOLUTE NEUTROPHIL S {[id number]) Lymphocytes # 2409 850 - 3900 cells/uL [facility] Comment:{ABSOLUTE LYMPHOCYTE S {[id number]) Monocytes # 495 200 - 950 cells/uL [facility] Comment:{ABSOLUTE MONOCYTES {[id number]) Eosinophils # 139 15 - 500 cells/uL [facility] Comment:{ABSOLUTE EOSINOPHIL S {[id number]) Basophils # 53 0 - 200 cells/uL [facility] Comment:{ABSOLUTE BASOPHILS {[id number]) Neutrophils % 53.1 % [facility] Comment:{NEUTROPHILS {[id number]) Lymphocytes % 36.5 % [facility] Comment:{LYMPHOCYTES {[id number]) Monocytes % 7.5 % [facility] Comment:{MONOCYTES {[id number]) Eosinophils % 2.1 % [facility] Comment:{EOSINOPHILS {[id number]) Basophils % 0.8 % [facility] Comment:{BASOPHILS {[id number]) 12/15/2014 11:1 4 AM EDT 12/15/2014 10:17 PM EDT Narrative Resulting Agency Comment [id number] us Alison Francis MD LAB SAME DAY RESULT Final Resul t [facility] [address] [place] [address] documented in this encounter Visit Diagnoses Diagnosis [...] documented as of this encounter Care Teams Credit Administration Specialist Relationship Specialty Start Date End Date Alison Francis MD PCP - General 03/20/10 09/01/15 Shreyas Orellana MD PCP - General Internal Medicine 09/02/15 07/07/19 Ashanti Kumar MD PCP - General Family Medicine 07/08/19 07/09/19 Shreyas Orellana MD PCP - General Internal Medicine 07/10/19 09/06/19 Ashanti Kumar MD PCP - General Family Medicine 09/07/19 07/12/20 Vale Walls NP [address] [place] [address] PCP - General Geriatrics 07/13/20 Chastity Cortes MD [address] [place] [address] PCP - Backup PCP Geriatrics 10/23/20 03/30/21 Vale Walls NP [address] [place] [address] PCP - Backup PCP Geriatrics 10/06/21 documented as of this encounter
--- OUTSIDE RECORDS SUMMARY | 2024-05-15 10:18 | XMS_ITS | Encounter Summary ---
Author Organization [facility] Address [address] [place] [address] Care Team Providers Care Forensic Audit Expert Name Role Phone Alison Francis MD Primary Care Provider [phone] Alison Francis MD Primary Care Provider [phone] Regan Darling MD Primary Care Provider [phone] Shreyas Orellana MD Primary Care Provider UnavailAshanti Smith MD Primary Care Provider [phone] Shreyas Orellana MD Primary Care Provider UnavailAshanti Smith MD Primary Care Provider [phone] Vale Walls NP Primary Care Provider [phone] Chastity Cortes MD Unavailable [phone] CouVale badillo BOW STRING MAKER Unavailable [phone] Encounter Details Date Type Department Care Team (Late st Contact Info) Description 06/08/2007 Orders Only [facility] [address] [place] [phone] Regan Darling MD [address] [place] [address] Social History Tobacco Use Types Packs/Day Years [...] of this encounter Procedures * Due to [facility] law, this organization might not be sharing negative HIV tests. Procedure Name Priority Date/Time Associated Diagnosis Comments BASIC METABOLIC PANEL STAT (All results called to provider) 06/08/2007 DEHYDRATION CBC 5 PART DIFF STAT (All results called to provider) 06/08/2007 FATIGUE documented in this encounter Results * Due to [place] law, this organization might not be sharing negative HIV tests. * (ABNORMAL) CBC 5 PART DIFF (06/08/2007) WHITE BLOOD COUNT 11.1(H) 3.8 - 10.8 THOUS/UL [facility] (CLIA# [id number]) RBC 5.04 3.80 - 5.10 MIL/UL [facility] (CLIA# [id number]) Hemoglobin 14.7 11.7 - 15.5 G/DL [facility] (CLIA# [id number]) HCT (HEMATOCRIT) 43.2 35.0 - 45.0 % [facility] (CLIA# [id number]) MCV 85.7 80.0 - 100.0 FL [facility] (CLIA# [id number]) MCH 29.2 27.0 - 33.0 PG [facility] (CLIA# [id number]) MCHC 34.1 32.0 - 36.0 G/DL [facility] (CLIA# [id number]) BAND % 0 0 - 5 % [facility] (CLIA# [id number]) NEUTROPHIL % 43(L) 48 - 75 % [facility] (CLIA# [id number]) LYMPHOCYTE % 19 17 - 40 % [facility] (CLIA# [id number]) MONOCYTE % 2 0 - 14 % [facility] (CLIA# [id number]) EOSINOPHIL % 36(H) 0 - 5 % [facility] (CLIA# [id number]) BASOPHIL % 0 0 - 3 % [facility] (CLIA# [id number]) ATYPICAL LYMPHOCYTE % 0 0 - 5 % [facility] (CLIA# [id number]) RBC MORPHOLOGY NORM [facility] (CLIA# [id number]) PLATELETS 246 140 - 400 THOUS/UL [facility] (CLIA# [id number]) BANDS # 0 0 - 750 CELLS/MCL [facility] (CLIA# [id number]) NEUTROPHILS # 4773 1500 - 7800 CELLS/MCL [facility] (CLIA# [id number]) LYMPHOCYTES # 2109 850 - 3900 CELLS/MCL [facility] (CLIA# [id number]) MONOCYTES # 222 200 - 950 CELLS/MCL [facility] (CLIA# [id number]) EOSINOPHILS # 3996(H) 15 - 550 CELLS/MCL [facility] (CLIA# [id number]) BASOPHILS # 0 0 - 200 CELLS/MCL [facility] (CLIA# [id number]) ATYPICAL LYMPHOCYTES # 0 0 - 200 CELLS/MCL [facility] (CLIA# [id number]) RDW 13.5 11.0 - 15.0 % [facility] (CLIA# [id number]) MPV 7.4(L) 7.5 - 11.5 FL [facility] (CLIA# [id number]) 06/08/2007 06/08/2007 11: 42 AM EDT Narrative [facility] (CLIA# [id number]) - 06/08/2007 12:17 PM EDT Report Comments: ALTHOUGH AN AUTOMATED CBC WAS ORDERED, OUR INSTRUMENTATION DETECTED AN ABNORMALITY ON YOUR PATIENT'S SPECIMEN, REQUIRING US TO PERFORM A MANUAL REVIEW. us Regan Darling MD LAB SAME DAY RESULT Edited [facility] (CLIA# [id number]) [address] [place] [address] * (ABNORMAL) BASIC METABOLIC PANEL (06/08/2007) CALCIUM 9.3 8.6 - 10.2 MG/DL [facility] (CLIA# [id number]) BUN 34(H) 7 - 25 MG/DL [facility] (CLIA# [id number]) CREATININE 1.94(H) 0.50-1.30/ 1.20 MG/DL [facility] (CLIA# [id number]) BUN/Creatinine Ratio 18 6 - 25 [facility] (CLIA# [id number]) Glucose 111(H) 65 - 99 MG/DL [facility] (CLIA# [id number]) SODIUM 140 135 - 146 MMOL/L [facility] (CLIA# [id number]) POTASSIUM 4.2 3.5 - 5.3 MMOL/L [facility] (CLIA# [id number]) CHLORIDE 102 98 - 110 MMOL/L [facility] (CLIA# [id number]) CARBON DIOXIDE 22 21 - 33 MMOL/L [facility] (CLIA# [id number]) 06/08/2007 06/08/2007 11: 42 AM EDT Narrative [facility] (CLIA# [id number]) - 06/08/2007 12:17 PM EDT Report Comments: ALTHOUGH AN AUTOMATED CBC WAS ORDERED, OUR INSTRUMENTATION DETECTED AN ABNORMALITY ON YOUR PATIENT'S SPECIMEN, REQUIRING US TO PERFORM A MANUAL REVIEW. us Regan Darling MD LAB SAME DAY RESULT Final Re sult [facility] (CLIA# [id number]) [address] [place] [address] documented in this encounter Visit Diagnoses Diagnosis DEHYDRATION Dehydration FATIGUE Other malaise and fatigue documented in this encounter Additional Health Concerns Infection Onset Date Last Indicated Resolved Time COVID-19 Confirmed 07/11/2019 07/11/2019 0 8:12 PM EDT documented as of this encounter Care Teams Forensic Audit Expert Relationship Specialty Start Date End Date Alison Francis MD PCP - General 03/20/10 09/01/15 Alison Francis MD PCP - General 07/02/07 03/19/10 Regan Darling MD [address] [place] [address] PCP - General 06/11/05 07/01/07 Shreyas Orellana MD [address] [place] [address] PCP - General Internal Medicine 09/02/15 07/07/19 Ashanti Kumar MD [address] [place] [address] PCP - General Family Medicine 07/08/19 07/09/19 Shreyas Orellana MD [address] [place] [address] PCP - General Internal Medicine 07/10/19 09/06/19 Ashanti Kumar MD [address] [place] [address] PCP - General Family Medicine 09/07/19 07/12/20 Vale Walls NP [address] [place] [address] PCP - General Geriatrics 07/13/20 Chastity Cortes MD [address] [place] [address] PCP - Backup PCP Geriatrics 10/23/20 03/30/21 Vale Walls NP [address] [place] [address] PCP - Backup PCP Geriatrics 10/06/21 documented as of this encounter
--- OUTSIDE RECORDS SUMMARY | 2024-05-15 10:18 | XMS_ITS | Encounter Summary ---
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 Procedure Name Priority Date/Time Associated Diagnosis Comments URIC ACID, SERUM Routine 11/09/2020 10:5 3 AM EDT Right foot pain VENIPUNCTURE Routine 11/09/2020 10:53 AM EDT Memory loss VITAMIN D, 25-HYDROXY, TOTAL, IMMUNOASSAY Routine 11/09/2020 10:53 AM EDT Vitamin D Defiency documented in this encounter Results * Due to [place] [facility] law, this organization might not be sharing negative HIV tests. * VITAMIN D, 25-HYDROXY, TOTAL, IMMUNOASSAY (11/09/2020 10:53 AM EDT) Vitamin D, 25-OH, Total 35 30 - 100 ng/mL [facility] Comment: Vitamin D Status ? 25-OH Vitamin D: Deficiency: ?<20 ng/mL Insufficiency: ? 20 - 29 ng/mL Optimal: ? > or = 30 ng/mL For 25-OH Vitamin D testing on patients on D2-supplementation and patients for whom quantitation of D2 and D3 fractions is required, the [facility]() 25-OH VIT D, (D2,D3), LC/MS/MS is recommended: order code 44277 (patients >2yrs). See Note 1 Note 1 For additional information, please refer to http://education.Concert Window/faq/SPR801 (This link is being provided for informational/ educational purposes only.) 11/09/2020 10:5 3 AM EDT 11/09/2020 12:10 PM EDT Narrative Resulting Agency Comment [id number] Vale Walls STRING STUDIES DIRECTOR LABORATORY Final Resul t Performing Organization Address [facility] Co de Phone Number [facility] [address] [place] [address] * URIC ACID, SERUM (11/09/2020 10:53 AM EDT) Uric Acid Serum 5.0 2.5 - 7.0 mg/dL [facility] Comment:Therapeutic target f or gout patients: <6.0 mg/dL 11/09/2020 10:5 3 AM EDT 11/09/2020 12:10 PM EDT Narrative Resulting Agency Comment [id number] Vale Walls STRING STUDIES DIRECTOR LABORATORY Final Resul t Performing Organization Address [facility] de Phone Number [facility] [address] [place] [address] * THYROID STIMULATING HORMONE (TSH) WITH FREE T4 REFLEX, SERUM (11/09/2020 10:53 AM EDT) TSH 1.80 0.40 - 4.50 mIU/L [facility] 11/09/2020 10:5 3 AM EDT 11/09/2020 12:10 PM EDT Narrative Resulting Agency Comment [id number] Vale Walls STRING STUDIES DIRECTOR LABORATORY Final Resul t Performing Organization Address [facility] Co de Phone Number [facility] [address] [place] [address] documented in this encounter Visit Diagnoses Diagnosis Memory loss Right foot pain Pain in limb Vitamin D Defiency documented in this encounter Care Teams Crtt Relationship Specialty Start Date End Date Vale Walls NP [address] [place] [address] PCP - General Geriatrics 07/13/20 Chastity Cortes MD [address] [place] [address] PCP - Backup PCP Geriatrics 10/23/20 03/30/21 Vale Walls NP [address] [place] [address] PCP - Backup PCP Geriatrics 10/06/21 documented as of this encounter
--- OUTSIDE RECORDS SUMMARY | 2024-05-15 10:18 | XMS_ITS | Encounter Summary ---
Author Organization [facility] Address [address] [place] [address] Care Team Providers Care Associate Account Manager Name Role Phone Vale Walls NP Primary Care Provider [phone] Vale Walls NP Unavailable [phone] Reason for Visit * Reason Comments E-prescribing Refill Request Encounter Details Date Type Department Care Team ([facility] st Contact Info) Description 11/28/2021 Refill [facility] [address] [place] [phone] Vale Walls NP [address] [place], [place] [phone] E-prescribing Refill Request Social History Tobacco Use [...] Start Date Job End Date 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 [phone] Pertinent lab results: No labs suggested for [...] on filedocumented in this encounter Care Teams Associate Account Manager Relationship Specialty Start Date End Date Vale Walls NP [address] [place] [address] PCP - General Geriatrics 07/13/20 Vale Walls NP [address] [place] [address] PCP - Backup PCP Geriatrics 10/06/21 documented as of this encounter
--- OUTSIDE RECORDS SUMMARY | 2024-05-15 10:18 | XMS_ITS | Encounter Summary ---
Author Organization [facility] Address [address] [place] [address] Care Team Providers Care Automatic Blocker Name Role Phone Alison Francis MD Primary Care Provider Shreyas Orellana MD Primary Care Provider UnavailAshanti Smith MD Primary Care Provider [phone] Shreyas Orellana MD Primary Care Provider UnavailAshanti Smith MD Primary Care Provider Vale Walls MANAGER PRIVATE Primary Care Provider [phone] Chastity Cortes MD Unavailable Vale Walls MANAGER PRIVATE Unavailable Encounter Details Date Type Department Care Team (Late st Contact Info) Description 08/28/2013 Orders Only [facility] [address] [place] [address] Alison Francis MD [address] [place] [address] Social History Tobacco Use Types Packs/Day Years [...] of this encounter Results * Due to [place] state law, this organization might not be sharing negative HIV tests. * (ABNORMAL) VITAMIN D, 25-HYDROXY, LC/MS/MS (12/15/2014 11:14 AM EDT) Vitamin D, 25-OH, Total 22(L) 30 - 100 ng/mL [facility] Comment: {VITAMIN D,25-OH,TOTAL,IA {[id number]) Vitamin D Status ? 25-OH Vitamin D: Deficiency: ?<20 ng/mL Insufficiency: ? 20 - 29 ng/mL Optimal: ? > or = 30 ng/mL For 25-OH Vitamin D testing on patients on D2-supplementation and patients for whom quantitation of D2 and D3 fractions is required, the [facility](TM) 25-OH VIT D, (D2,D3), LC/MS/MS is recommended: order code [id number] (patients >2yrs). For more information on this test, go to: http://education.ClearDATA/faq/QNH273 (This link is being provided for informational/educational purposes only.) 12/15/2014 11:1 4 AM EDT 12/15/2014 10:17 PM EDT Narrative Resulting Agency Comment [id number] us Alison Francis MD LABORATORY Final Result [facility] [address] [place] [address] * VITAMIN B12 (CYANOCOBALAMIN), SERUM (12/15/2014 11:14 AM EDT) Vitamin B12 (Cobalamins) 423 200 - 1100 pg/mL [facility] Comment:{VITAMIN B12 {[id number]) 12/15/2014 11:1 4 AM EDT 12/15/2014 10:17 PM EDT Narrative Resulting Agency Comment [id number] us Alison Francis MD LABORATORY Final Result [facility] [address] [place] [address] * BASIC METABOLIC PANEL WITH (GFR) (12/15/2014 11:14 AM EDT) Glucose 97 65 - 99 mg/dL [facility] Comment: {GLUCOSE {[id number]) ? Fasting reference interval Urea Nitrogen Blood (BUN) 21 7 - 25 mg/dL [facility] Comment:{UREA NITROGEN (BUN) {[id number]) Creatinine 0.80 0.60 - 0.93 mg/dL [facility] Comment: {CREATININE {[id number]) For patients >49 years of age, the reference limit for Creatinine is approximately 13% higher for people identified as -Barbadian. GFR 72 > OR = 60 mL/min/1 .73m2 [facility] Comment:{eGFR NON-AFR. AMERI CAN {[id number]) GFR () 83 > OR = 60 mL/min/1 .73m2 [facility] Comment:{eGFR AMERIC AN {[id number]) BUN/Creatinine Ratio NOT APPLICABLE 6 - 22 (calc) [facility] Comment:{BUN/CREATININE RATI O {[id number]) Sodium 137 135 - 146 mmol/L [facility] Comment:{SODIUM {[id number]) Potassium 3.7 3.5 - 5.3 mmol/L [facility] Comment:{POTASSIUM {[id number]) Chloride 101 98 - 110 mmol/L [facility] Comment:{CHLORIDE {[id number]) Carbon dioxide 25 19 - 30 mmol/L [facility] Comment:{CARBON DIOXIDE {[id number]) Calcium 9.7 8.6 - 10.4 mg/dL [facility] Comment:{CALCIUM {[id number]) 12/15/2014 11:1 4 AM EDT 12/15/2014 [...] needs for GFR calculation. Resulting Agency Comment [id number] us Alison Francis MD LABORATORY Final Result Performing Organization Address [facility] Co de Phone Number [facility] [address] [place] [address] * (ABNORMAL) LIPID PANEL WITH REFLEX TO DIRECT LDL (12/15/2014 11:14 AM EDT) Cholesterol 219(H) 125 - 200 mg/dL [facility] Comment:{CHOLESTEROL, TOTAL {[id number]) HDL Cholesterol 49 > OR = 46 mg/dL [facility] Comment:{HDL CHOLESTEROL {[id number]) Triglyceride 165(H) <150 mg/dL [facility] Comment:{TRIGLYCERIDES {[id number]) LDL Cholesterol 137(H) <130 mg/dL (calc) [facility] Comment: {LDL-CHOLESTEROL {[id number]) Desirable range <100 mg/dL for patients with CHD or diabetes and <70 mg/dL for diabetic patients with known heart disease. CHOL/HDL Ratio 4.5 < OR = 5.0 (calc) [facility] Comment:{CHOL/HDLC RATIO {[id number]) Cholesterol Non-HDL 170(H) mg/dL (calc) [facility] Comment: {NON HDL CHOLESTEROL {[id number]) Target for non-HDL cholesterol is 30 mg/dL higher than LDL cholesterol target. 12/15/2014 11:1 4 AM EDT 12/15/2014 10:17 PM EDT Narrative Resulting Agency Comment [id number] us Alison Francis MD LABORATORY Final Result Performing Organization Address [facility]/ZIP Co de Phone Number [facility] [address] [place] [address] * URINALYSIS, COMPLETE INCLUDES DIPSTICK AND MICROSCOPIC (12/15/2014 11:14 AM EDT) Color (Urine) YELLOW YELLOW [facility] Comment:{COLOR {[id number]) Appearance (Urine) CLEAR CLEAR [facility] Comment:{APPEARANCE {[id number]) Specific gravity (Urine) 1.014 1.001 - 1.035 [facility] Comment:{SPECIFIC GRAVITY {[id number]) pH (Urine) 6.5 5.0 - 8.0 [facility] Comment:{PH {[id number]) Glucose (Urine) NEGATIVE NEGATIVE [facility] Comment:{GLUCOSE {[id number]) Bilirubin (Urine) NEGATIVE NEGATIVE [facility] Comment:{BILIRUBIN {[id number]) Ketones (Urine) NEGATIVE NEGATIVE [facility] Comment:{KETONES {[id number]) Hemoglobin (Urine) NEGATIVE NEGATIVE [facility] Comment:{OCCULT BLOOD {[id number]) Protein (Urine) NEGATIVE NEGATIVE [facility] Comment:{PROTEIN {[id number]) Nitrite (Urine) NEGATIVE NEGATIVE [facility] Comment:{NITRITE {[id number]) Leukocyte esterase (Urine) NEGATIVE NEGATIVE [facility] Comment:{LEUKOCYTE ESTERASE {[id number]) WBC (Urine) NONE SEEN < OR = 5 /HPF [facility] Comment:{WBC {[id number]) RBC (Urine Sed) NONE SEEN < OR = 2 /HPF [facility] Comment:{RBC {[id number]) Epithelial cells.squamous (Urine sed) 0-5 < OR = 5 /HPF [facility] Comment:{SQUAMOUS EPITHELIAL CELLS {[id number]) Bacteria (Urine) NONE SEEN NONE SEEN /HPF [facility] Comment:{BACTERIA {[id number]) Hyaline casts (Urine sed) NONE SEEN NONE SEEN /LPF [facility] Comment:{HYALINE CAST {[id number]) Service comment 01 SEE NOTE [facility] Comment: {COMMENTS {[id number]) The above test was performed; ??evaluate the urinalysis results with caution. ??The urine specimen was received without a preservative. ??Deterioration of formed elements and/or alteration of chemical constituents may have occurred. 12/15/2014 11:1 4 AM EDT 12/15/2014 10:17 PM EDT Narrative Resulting Agency Comment [id number] us Alison Francis MD LAB SAME DAY RESULT Final Resul t [facility] [address] [place] [address] * CBC INCLUDES DIFFERENTIAL AND PLATELET COUNT (12/15/2014 11:14 AM EDT) WBC 6.6 3.8 - 10.8 Thousand/u L [facility] Comment:{WHITE BLOOD CELL CO UNT {[id number]) RBC 4.98 3.80 - 5.10 Million/uL [facility] Comment:{RED BLOOD CELL COUN T {[id number]) Hemoglobin 14.3 11.7 - 15.5 g/dL [facility] Comment:{HEMOGLOBIN {[id number]) Hematocrit 44.0 35.0 - 45.0 % [facility] Comment:{HEMATOCRIT {[id number]) MCV 88.2 80.0 - 100.0 fL [facility] Comment:{MCV {[id number]) MCH 28.8 27.0 - 33.0 pg [facility] Comment:{MCH {[id number]) MCHC 32.6 32.0 - 36.0 g/dL [facility] Comment:{MCHC {[id number]) RDW 13.9 11.0 - 15.0 % [facility] Comment:{RDW {[id number]) PLT 208 140 - 400 Thousand/u L [facility] Comment:{PLATELET COUNT {[id number]) MPV 8.3 7.5 - 11.5 fL [facility] Comment:{MPV {[id number]) Neutrophils # 3505 1500 - 7800 cells/uL [facility] Comment:{ABSOLUTE NEUTROPHIL S {[id number]) Lymphocytes # 2409 850 - 3900 cells/uL [facility] Comment:{ABSOLUTE LYMPHOCYTE S {[id number]) Monocytes # 495 200 - 950 cells/uL [facility] Comment:{ABSOLUTE MONOCYTES {[id number]) Eosinophils # 139 15 - 500 cells/uL [facility] Comment:{ABSOLUTE EOSINOPHIL S {[id number]) Basophils # 53 0 - 200 cells/uL [facility] Comment:{ABSOLUTE BASOPHILS {[id number]) Neutrophils % 53.1 % [facility] Comment:{NEUTROPHILS {[id number]) Lymphocytes % 36.5 % [facility] Comment:{LYMPHOCYTES {[id number]) Monocytes % 7.5 % [facility] Comment:{MONOCYTES {[id number]) Eosinophils % 2.1 % [facility] Comment:{EOSINOPHILS {[id number]) Basophils % 0.8 % [facility] Comment:{BASOPHILS {[id number]) 12/15/2014 11:1 4 AM EDT 12/15/2014 10:17 PM EDT Narrative Resulting Agency Comment [id number] us Alison Francis MD LAB SAME DAY RESULT Final Resul t [facility] [address] [place] [address] * THYROID CASCADING REFLEX (12/15/2014 11:14 AM EDT) TSH 2.72 0.40 - 4.50 mIU/L [facility] Comment:{TSH {[id number]) INTERPRETATION SEE NOTE [facility] Comment: {INTERPRETATION {[id number]) TSH within normal range. Consistent with euthyroid patient. Interference from heterophilic antibodies (more common) or autoantibody (less common) should be considered when the TSH value does not fit the clinical picture. TSH with HAMA Treatment (test code 38454) or TSH Antibody (test code 11831) may help identify such interferences. 12/15/2014 11:1 4 AM EDT 12/15/2014 10:17 PM EDT Narrative Resulting Agency Comment [id number] Alison Franics MD LABORATORY Final Result [facility] [address] [place] [address] documented in this encounter Visit Diagnoses Diagnosis [...] documented as of this encounter Care Teams Automatic Blocker Relationship Specialty Start Date End Date Alison Francis MD PCP - General 03/20/10 09/01/15 Shreyas Orellana MD PCP - General Internal Medicine 09/02/15 07/07/19 Ashanti Kumar MD PCP - General Family Medicine 07/08/19 07/09/19 Shreyas Orellana MD PCP - General Internal Medicine 07/10/19 09/06/19 Ashanti Kumar MD PCP - General Family Medicine 09/07/19 07/12/20 Vale Walls NP [address] [place] [address] PCP - General Geriatrics 07/13/20 Chastity Cortes MD [address] [place] [address] PCP - Backup PCP Geriatrics 10/23/20 03/30/21 Vale Walls NP [address] [place] [address] PCP - Backup PCP Geriatrics 10/06/21 documented as of this encounter
--- OUTSIDE RECORDS SUMMARY | 2024-05-15 10:18 | XMS_ITS | Encounter Summary ---
Author Organization [facility] Address [address] [place] [address] Care Team Providers Care Head Still Operator Name Role Phone Shreyas Orellana MD Primary Care Provider UnavailAshanti Smith MD Primary Care Provider [phone] Shreyas Orellana MD Primary Care Provider UnavailAshanti Smith MD Primary Care Provider Vale Walls NP Primary Care Provider Chastity Cortes MD Unavailable [phone] Vale Walls NP Unavailable [phone] Encounter Details Date Type Department Care Team (Late st Contact Info) Description 06/04/2018 Orders Only [facility] [address] [place] [phone] Shreyas Orellana MD Social History Tobacco Use [...] documented as of this encounter Care Teams Head Still Operator Relationship Specialty Start Date End Date Shreyas Orellana MD PCP - General Internal Medicine 09/02/15 07/07/19 Ashanti Kumar MD PCP - General Family Medicine 07/08/19 07/09/19 Shreyas Orellana MD PCP - General Internal Medicine 07/10/19 09/06/19 Ashanti Kumar MD PCP - General Family Medicine 09/07/19 07/12/20 Vale Walls NP [address] [place] [address] PCP - General Geriatrics 07/13/20 Chastity Cortes MD [address] [place] [address] PCP - Backup PCP Geriatrics 10/23/20 03/30/21 Vale Walls NP [address] [place] [address] PCP - Backup PCP Geriatrics 10/06/21 documented as of this encounter
--- OUTSIDE RECORDS SUMMARY | 2024-05-15 10:18 | XMS_ITS | Encounter Summary ---
Author Organization [facility] Address [address] [place] [address] Care Team Providers Care Engineering Lecturer Name Role Phone Vale Walls NP Primary Care Provider [phone] Vale Walls CEMENTING BULK MATERIAL OPERATOR Unavailable [phone] Encounter Details Date Type Department Care Team ([facility] st Contact Info) Description 04/11/2022 Orders Only [facility] Pre-Admission Testing [address] [phone] Gail Barber, CEMENTING BULK MATERIAL OPERATOR 123 [facility] [address] [place], [place] [phone] Social History Tobacco Use Types Packs/Day Years [...] Start Date Job End Date 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, 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, 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, 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 Not on file [...] this encounter Procedures * Due to [place] Afterschool.me law, this organization might not be sharing [...] this encounter Results * Due to [place] Afterschool.me law, this organization might not be sharing [...] 04/12/2022 1:35 PM EST Gail S Sithole CEMENTING BULK MATERIAL OPERATOR CARDIOVASCULAR-WITH INBSKT R TG Final Result MUSE [...] 3:37 PM EST Narrative Resulting Agency Comment [id number] Gail S Sithole CEMENTING BULK MATERIAL OPERATOR LAB SAME DAY RESULT Final Re sult [facility] [address] [place] [address] * BASIC METABOLIC PANEL WITH (GFR) (04/11/2022 [...] needs for GFR calculation. Resulting Agency Comment [id number] Gail Barber NP LABORATORY Final Result Performing Organization Address City/State/[facility] Co de Phone Number [facility] [address] [place] [address] documented in this encounter Visit Diagnoses Diagnosis [...] unspecified documented in this encounter Care Teams Engineering Lecturer Relationship Specialty Start Date End Date Vale Walls NP [address] [place] [address] PCP - General Geriatrics 07/13/20 Vale Walls NP [address] [place] [address] PCP - Backup PCP Geriatrics 10/06/21 documented as of this encounter
--- OUTSIDE RECORDS SUMMARY | 2024-05-15 10:18 | XMS_ITS | Encounter Summary ---
Author Organization [facility] Address [address] [place] [address] Care Team Providers Care Porter Bath Name Role Phone Alison Francis MD Primary Care Provider Alison Francis MD Primary Care Provider Shreyas Orellana MD Primary Care Provider UnavailAshanti Smith MD Primary Care Provider [phone] Shreyas Orellana MD Primary Care Provider UnavailAshanti Smith MD Primary Care Provider Vale Walls DE ALCHOLIZER Primary Care Provider Chastity Cortes MD Unavailable Vale Walls DE ALCHOLIZER Unavailable Encounter Details Date Type Department Care Team (Late st Contact Info) Description 04/04/2008 Orders Only [facility] [address] [place] [phone] Alison Francis MD [address] [place] [phone] Social History Tobacco Use Types Packs/Day Years [...] this encounter Procedures * Due to [place] Cl[place]sting law, this organization might not be sharing negative HIV tests. Procedure Name Priority Date/Time Associated Diagnosis Comments CARDIAC RISK/LIPID PROFILE I Routine 04/04/2008 Hypertension Fungal Dermatitis BASIC METABOLIC PANEL Routine 04/04/2008 Hypertension Fungal Dermatitis CBC 5 PART DIFF Routine 04/04/2008 Hypertension Fungal Dermatitis documented in this encounter Results * Due to [place] Clas[place]ing law, this organization might not be sharing [...] documented as of this encounter Care Teams Porter Bath Relationship Specialty Start Date End Date Alison [...] Medicine 09/07/19 07/12/20 Vale Walls NP [address] [place] [address] PCP - General Geriatrics 07/13/20 Chastity Cortes MD [address] [place] [address] PCP - Backup PCP Geriatrics 10/23/20 03/30/21 Vale Walls NP [address] [place] [address] PCP - Backup PCP Geriatrics 10/06/21 documented as of this encounter
--- OUTSIDE RECORDS SUMMARY | 2024-05-15 10:18 | XMS_ITS | Encounter Summary ---
Author Organization [facility] Address [address] [place] [address] Care Team Providers Care Web Marketing Intern Name Role Phone Alison Francis MD Primary Care Provider Shreyas Orellana MD Primary Care Provider UnavailAshanti Smith MD Primary Care Provider Shreyas Orellana MD Primary Care Provider UnavailAshanti Smith MD Primary Care Provider [phone] Vale Walls ACCOUNT MANAGER TRAINEE Primary Care Provider Chastity Cortes MD Unavailable Vale Walls ACCOUNT MANAGER TRAINEE Unavailable [phone] Encounter Details Date Type Department Care Team (Late st Contact Info) Description 05/13/2015 Orders Only [facility] [address] [place] [address] Alison Francis MD [address] [place] [address] Social History Tobacco Use Types Packs/Day Years [...] documented as of this encounter Care Teams Web Marketing Intern Relationship Specialty Start Date End Date Alison Francis MD PCP - General 03/20/10 09/01/15 Shreyas Orellana MD PCP - General Internal Medicine 09/02/15 07/07/19 Ashanti Kumar MD PCP - General Family Medicine 07/08/19 07/09/19 Shreyas Orellana MD PCP - General Internal Medicine 07/10/19 09/06/19 Ashanti Kumar MD PCP - General Family Medicine 09/07/19 07/12/20 Vale Walls NP [address] [place] [address] PCP - General Geriatrics 07/13/20 Chastity Cortes MD [address] [place] [address] PCP - Backup PCP Geriatrics 10/23/20 03/30/21 Vale Walls NP [address] [place] [address] PCP - Backup PCP Geriatrics 10/06/21 documented as of this encounter
--- OUTSIDE RECORDS SUMMARY | 2024-05-15 10:18 | XMS_ITS | Encounter Summary ---
Author Organization [facility] Address [address] [place] [address] Care Team Providers Care Elevator Dispatcher Name Role Phone Vale Walls NP Primary Care Provider [phone] Vale Walls NP Unavailable [phone] Reason for Visit * Reason Comments E-prescribing Refill Request Encounter Details Date Type Department Care Team ([facility] st Contact Info) Description 05/14/2024 Refill [facility] [address] [place] [phone] Vale Walls NP [address] [place], [place] [phone] E-prescribing Refill Request Social History Tobacco Use [...] Start Date Job End Date 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
--- OUTSIDE RECORDS SUMMARY | 2024-05-15 10:18 | XMS_ITS | Encounter Summary ---
Author Organization [facility] Address [address] [place] [address] Care Team Providers Care Commercial Credit Specialist Name Role Phone Vale Walls NP Primary Care Provider [phone] Vale Walls CADDY MASTER Unavailable [phone] Reason for Visit * Reason Comments Patient Questions Encounter Details Date Type Department Care Team ([facility] Contact Info) Description 05/15/2024 Telephone [facility] [address] [place], [place] [phone] Vale Walls NP [address] [place], [place] [phone] Patient Questions Social History Tobacco Use Types Packs/Day Years [...] Start Date Job End Date 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 Wants PCP to put the preop clearance and faxed to Dr. Mark Au Surgery date june 05. Needs labs and EKG for clearance. PCP please advise. * Telephone Encounter - Kandis Finch - 05/15/2024 9:39 AM EST Reason for call: About upcoming surgery No further information provided Is the patient having an emergent symptom? No Follow-up action needed: call transferred to Nurse queue documented in this encounter Plan of Treatment Not on file documented as of this encounter Goals Goal Patient Goal Type Associated Problems Recent Progress Patient-Stated? Author Blood Pressure < 140/90 Blood Pressure 158/66( 024 3:45 PM EST) No Marsha Guzman CMA documented as of this encounter Visit Diagnoses Not on filedocumented in this encounter Care Teams Commercial Credit Specialist Relationship Specialty Start Date End Date Vale Walls NP [address] [place] [address] PCP - General Geriatrics 07/13/20 Vale Walls NP [address] [place] [address] PCP - Backup PCP Geriatrics 10/06/21 documented as of this encounter
--- OUTSIDE RECORDS SUMMARY | 2024-05-15 10:18 | XMS_ITS | Data Portability ---
Author Organization [place] [facility] Address [address] [place] [phone] Care Team Providers Care Criminal Justice Program Director Name Role Phone MARIVEL HUANG Primary Care Provider Assessment Encounter Date Assessment Date Assessment LastModified by Organization Details LastModified Time 03/07/2024 03/07/2024 Brief Overview: 83 yo F with 1 month history of R sided LBP, now b/l over last 4-5 days. Pain mildly controlled with prednisone and OTC analgesics. Reports radiation of pain down delonte of legs to mid thigh Reports mild lower abdominal pressure after two bouts of BRBPR. Denies parasthesias, paralysis or incontinence. I have reviewed the Other: Urgent care Notes from (hospital system/practice) _[facility] , on this date of service 03/03 . Specifically, the data/test result/record I reviewed was: _POC ad diagnosis . Vital Signs: Abnormal VS Present (AVS): Y VS: BPs 218/100, 222/100, 198/86 VS improved on reevaluation/pos t-intervention? Y__ N__ Likely cause of AVS: Pain and anxiousness re. BRBPR__ Call placed to [facility]-call physician to discuss unexplained or persistent AVS? Y Plan: Spoke with Dr. Yvon Isaac re: pt. POC and elevated BP Exam: B/l TTP lumbosacral. Pt. ambulating with pain. Bloody d/c noted in undergarments (in bag from pt.) No focal deficits. Pt. uncomfortable but pleasant. BSx4. R renal pule noted while standing. no abdominal TT, rigidity or guarding. DDx considered, with rationale: Sciatica: B/l radiation from LB to posterior thighs. AA dissection: BP too high. Pt. Able to stand from sitting. Muscle strain/spasm: Pain is now b/l, as it was R sided when it began a month ago. Pt. did not express signs of sudden sharp pains during visit,though she had much worse pain over the weekend. Time On Scene with Patient: 01:01:29 [email or web address] Not available 03/07/2024 21:57:10 Plan of Treatment Reminders Order Date Submit Date Provider Last Modified By Organization Details Last Modified Time Details Appointments None recorded. Lab None recorded. Referral None recorded. Procedures None recorded. Surgeries None recorded. Imaging None recorded. Medication Orders methocarbam ol 500 mg tablet 2023 024 [facility][id number], [address] [place], [address], 20:19:24 Patient TargetsNo targets recorded. Patient InstructionsNo instructions recorded. Reason for Referral None Reported. Procedures Surgical History Date Name Laterality Status Provider Name and Address Organization Details Recorded Time 03/07/20 Hemoccult Interpretation - completed Lion Francis NP [address] [facility] [place], [address], [place] [facility] 03/07/2024 21:40:29 Imaging Results None recorded. Procedure Notes None recorded. Medical Equipment None Reported. Allergies No known drug allergies Medications Name Sig Start Date Stop Date Status Note LastModified by Organization Details LastModified Time losartan 50 mg tablet active Not Available Not Available No t Available quetiapine 25 mg tablet TAKE 1 TABLET BY MOUTH EVERY DAY AT NIGHT active Not Available Not Available No t Available amoxicillin 500 mg capsule TAKE 1 TAB 3 TIMES PER DAY FOR 7 DAYS 03/07 completed Not Available Not Available Not Available methocarbam ol 500 mg tablet Take 1 tablet twice a day by oral route as needed for 3 days, for Back pain. 2023 active Not Available Not Available Not Avai lable donepezil 5 mg tablet TAKE 1 TABLET (5 MG TOTAL) BY MOUTH EVERY NIGHT active Not Available Not Available No t Available cetirizine 10 mg tablet TAKE ONE HALF TABLET (5 MG TOTAL) BY MOUTH 1 (ONE) TIME EACH DAY. active Not Available Not Available No t Available ketotifen 0.025 % (0.035 %) eye drops PLEASE SEE ATTACHED FOR DETAILED DIRECTION S active Not Available Not Available No t Available prednisone 20 mg tablet TAKE 2 TABLETS (40 MG TOTAL) BY MOUTH ONE TIME EACH DAY FOR 5 DAYS active Not Available Not Available No t Available calcitonin (salmon) 200 unit/actuat ion nasal spray active Not Available Not Available Not Available phenazopyri dine 100 mg tablet TAKE 1 TABLET BY MOUTH THREE TIMES A DAY NEEDED FOR PAIN FOR 2 DAYS active Not Available Not Available No t Available cephalexin 500 mg capsule TAKE 1 CAPSULE BY MOUTH THREE TIMES A DAY 03/07 completed Not Available Not Available Not Available losartan 25 mg tablet TAKE 1 TABLET (25 MG TOTAL) BY MOUTH EVERY DAY active Not Available Not Available No t Available pramipexole 0.25 mg tablet TAKE ONE TABLET (0.25 MG TOTAL) BY MOUTH EVERY NIGHT. active Not Available Not Available No t Available verapamil 80 mg tablet TAKE ONE TABLET (80 MG TOTAL) BY MOUTH 2 (TWO) TIMES A DAY. active Not Available Not Available No t Available fluticasone propionate 50 mcg/actuati on nasal spray,suspe nsion SPRAY 1 SPRAY INTO EACH NOSTRIL 1 TIME EACH DAY active Not Available Not Available No t Available oxycodone 5 mg tablet active Not Available Not Available No t Available nitrofurant oin monohydrate /macrocryst als 100 mg capsule TAKE 1 CAPSULE BY MOUTH TWICE A DAY FOR 5 DAYS 03/07 completed Not Available Not Available Not Available diclofenac 1 % topical gel APPLY 2 G TOPICALLY 2 (TWO) TIMES A DAY IF NEEDED FOR PAIN TO AFFECTED AREA. active Not Available Not Available No t Available cholecalcif lisa (vitamin D3) 50 mcg (2,000 unit) capsule TAKE ONE CAPSULE (2,000 UNITS TOTAL) BY MOUTH 1 (ONE) TIME EACH DAY. active Not Available Not Available No t Available Vitals Date Recorded Respiratory rate Body temperature Heart rate Oxygen saturation Oxygen saturation in Arterial blood by Pulse oximetry Systolic blood pressure Diastolic blood pressure Systolic blood pressure Diastolic blood pressure Systolic blood pressure Diastolic blood pressure Provider Name and Address Organization Details Last Updated DateTime 4 16 /min 98.5 [degF] 94 /min 100 % 100 % 218 mm[Hg] 100 mm[Hg] 222 mm[Hg] 100 mm[Hg] 198 mm[Hg] 86 mm[Hg] Not Available [facility] 20:09:23 Social History Question Answer Notes LastModified by Organizat ion Details LastModified Time Tobacco Smoking Status Never Smoker Lion Francis NP [address], [place], [address], [place] [facility] 03/07/2024 19:27:39 Do You Have An Advance Directive? No [email or web address] Information n ot available 03/07/2024 What Is Your Level Of Alcohol Consumption? None [email or web address] Information not available 03/07/2024 Is Blood Transfusion Acceptable In An Emergency? Yes [email or web address] Information not available 03/07/2024 What Is Your Code Status? Full Code [email or web address] Information not available 03/07/2024 Do You Have A Directive To Physicians? No Information not available 03/07/2024 Within The Past 12 Months, Has It Happened That The Food You Bought Just Didn't Last And You Didn't Have Money To Get More. Never True [email or web address] Information not available 03/07/2024 Within The Past 12 Months, Have You Worried That Your Food Would Run Out Before You Got Money To Buy More. Never True Information n ot available 03/07/2024 Fall Risk: Do You Feel Unsteady When Standing Or Walking? Yes [email or web address] Information not available 03/07/2024 Excessive Alcohol Or Drug Use No [email or web address] Information not available 03/07/2024 Does This Patient Have A PCP? Yes [email or web address] Information not available 03/07/2024 ADL: Do You Need Help With Daily Activities Such As Bathing, Preparing Meals, Dressing, Or Cleaning? Yes (Z74.1) [email or web address] Information not available 03/07/2024 Social Support: Do You Feel Safe? Yes [email or web address] Information not available 03/07/2024 In The Past 12 Months, Has Lack Of Transportation Kept You From Medical Appointments? No [email or web address] Information not available 03/07/2024 In The Past 12 Months, Has Lack Of Transportation Kept You From Non-medical Needs? No [email or web address] Information n ot available 03/07/2024 What Is Your Housing Situation Today? I Have Housing [email or web address] Information not available 03/07/2024 Do You Have A Medical Power Of Blending Tank Tender? Yes [email or web address] Information not available 03/07/2024 Do You Have An Out Of Hospital DNR? No [email or web address] Information not available 03/07/2024 Has Tobacco Cessation Counseling Been Provided? No Information not available 03/07/2024 Do You Or Have You Ever Used Any Other Forms Of Tobacco Or Nicotine? No [email or web address] Information not available 03/07/2024 Sex: Unknown Functional Status None recorded. Mental Status None recorded. Family History Relationship Description Onset Age of this Age Resolved Age Notes LastModified by Organization Details LastModified Time Son Diabetes mellitus [email or web address] Not available 03/07 19:27:56 Medical History No medical history recorded. Gynecological HistoryNo gynecological history recorded. Obstetrics History GPAL:G 0 P 0 0 0 0 Past Encounters Encounter ID Performer Location Encounter Start Date Encounter Closed Date Diagnosis/Indication Diagnosis SNOMED-CT Code Diagnosis ICD10 Code Diagnosis Note [id number] Lion Francis NP [facility] [address] [facility] [address] [place] [address] 03/07/2024 19:12:48 03/08/2024 19:17:53 Low back pain 674006141 M54.50 Status of condition: {{Acute* E xacerbatio n/Acute on chronic Ch ronic Stab le Worseni ng/Progres jase Uncon trolled Cr itical: Warrants escalation to ED. Undete rmined: Unclear staging of condition. Needs further evaluation and management by PCP and/or Specialist }}. Testing/Re sults:Pt. ambulating . Able to rise and sit under own power. Discussion :Ongoing condition x 1 month. Poor pain control with OTC meds. Discussed available options of pain tx at ED or trial low dose muscle relaxer (Baclofen) to reliev some pain and subsequent ly lower BP . Pt. has recent history of well controlled BP reading. Latest readings correlate with significan t LBP (03/03 and 03/07).Dis cussed with Dr. Yvon Isaac possible escalation of this patient. Lower abdominal pressure, b/l LBP and recent BRBPR. Shared decision making with pt.Plan & Management :[place] low dose Baclofen. Dizziness and fall risk precaution s verbalized and repeated by patient.If effective cont. use with precaution s given. Speak with PCP to extend duration if needed.Wor sening pain go to ED. BP remains highly elevated ==> EDAppt. with orthopedic s on 03/14 Hematochezia [id number] K 92.1 Status of condition: {{Acute* E xacerbatio n/Acute on chronic Ch ronic Stab le Worseni ng/Progres jase Uncon trolled Cr itical: Warrants escalation to ED. Undete rmined: Unclear staging of condition. Needs further evaluation and management by PCP and/or Specialist }}. DDX: Nsaid gastritis: No Melena notedHemmo rrhoid: rupture with recent elevated BPNon-vagi nal bleeding. Discussion :Discussed with pt that the volume of blood is of some concern, though it is BRB which is not continuous is reassuring . If BRBPR cont. in amount larger than several drops, especially if enough to fully discolor toilet bowl go to ED. Discussed using APAP more than IBU, Health Concerns Section Related Observation LastModified by Organization Detai ls LastModified Time None Recorded Concern Status LastModified by Organization Details LastModified Time None Recorded Advance Directives Directive N: Payers Encounter Date Sequence Insurance Name Policy Number Policy Gallagher Covered Member ID Gallagher Member ID Guarantor Name 03/07/2024 1 [facility] (MEDICARE - MEDICAID REPLACEMENT) WAYNE Concepcion Milton [id number] 1 Carlene Rose Notes Date Note Type Note Provider Name and Address Organization Details Recorded Time 03/07/2024 text/html 83 yo F new to . C/C of persistent 10/27 LBP, was 15/10 over the weekend. Reports BRBPR x 2 today, once in undergarment, 2nd in toilet. Was seen at on 03/03 for severe LBP. Given IM Toradol and PO prednisone. Currently taking prednisone, APAP and IBU as directed by provider. Minimal improvement in pain. Reports radiation of pain from lower back down to posterior mid thighs. Denies numbness or incontinence. PMHx HTN and lumbar dislocation. Reports orthopedics appt. on 03/14 Lion Francis NP [address], [place], [address], [place] [facility] 03/07/2024 22:06:29 OBGyn Episode No OBEpisode recorded.
--- OUTSIDE RECORDS SUMMARY | 2024-05-15 10:18 | XMS_ITS | Encounter Summary ---
Author Organization [facility] Address [address] [place] [address] Care Team Providers Care Demo Coordinator Name Role Phone Alison Francis MD Primary Care Provider [phone] Shreyas Orellana MD Primary Care Provider UnavailAshanti Smith MD Primary Care Provider [phone] Shreyas Orellana MD Primary Care Provider UnavailAshanti Smith MD Primary Care Provider Vale Walls ROLL UP OPERATOR Primary Care Provider Chastity Cortes MD Unavailable [phone] Vale Walls ROLL UP OPERATOR Unavailable Encounter Details Date Type Department Care Team (Late st Contact Info) Description 12/16/2014 Orders Only [facility] [address] [place] [address] Alison Francis MD [address] [place] [id number] Social History Tobacco Use Types Packs/Day Years [...] of this encounter Results * Due to [place] state law, this organization might not be sharing negative HIV tests. * (ABNORMAL) VITAMIN D, 25-HYDROXY, TOTAL, IMMUNOASSAY (07/07/2015 11:55 AM EDT) Vitamin D, 25-OH, Total 26(L) 30 - 100 ng/mL Xeebel Comment: {VITAMIN D,25-OH,TOTAL,IA {[id number]) Vitamin D Status ? 25-OH Vitamin D: Deficiency: ?<20 ng/mL Insufficiency: ? 20 - 29 ng/mL Optimal: ? > or = 30 ng/mL For 25-OH Vitamin D testing on patients on D2-supplementation and patients for whom quantitation of D2 and D3 fractions is required, the QuestAssureD(TM) 25-OH VIT D, (D2,D3), LC/MS/MS is recommended: order code 90646 (patients >2yrs). For more information on this test, go to: http://education.Shoto/faq/QCQ004 (This link is being provided for informational/educational purposes only.) 07/07/2015 11:5 5 AM EDT 07/07/2015 7:19 PM EDT Narrative Resulting Agency Comment [id number] us Alison Francis MD LABORATORY Final Result [facility] [address] [place] [address] documented in this encounter Visit Diagnoses Diagnosis Lipids blood increased- Primary Other and unspecified hyperlipidemia Unspecified vitamin D deficiency documented in this encounter Additional Health Concerns Infection Onset Date Last Indicated Resolved Time COVID-19 Confirmed 07/11/2019 07/11/2019 0 8:12 PM EDT documented as of this encounter Care Teams Demo Coordinator Relationship Specialty Start Date End Date Alison Francis MD PCP - General 03/20/10 09/01/15 Shreyas Orellana MD PCP - General Internal Medicine 09/02/15 07/07/19 Ashanti Kumar MD PCP - General Family Medicine 07/08/19 07/09/19 Shreyas Orellana MD PCP - General Internal Medicine 07/10/19 09/06/19 Ashanti Kumar MD PCP - General Family Medicine 09/07/19 07/12/20 Vale Walls NP [address] [place] [address] PCP - General Geriatrics 07/13/20 Chastity Cortes MD [address] [place] [address] PCP - Backup PCP Geriatrics 10/23/20 03/30/21 Vale Walls NP [address] [place] [address] PCP - Backup PCP Geriatrics 10/06/21 documented as of this encounter
--- OUTSIDE RECORDS SUMMARY | 2024-05-15 10:18 | XMS_ITS | Encounter Summary ---
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 Procedure Name Priority Date/Time Associated Diagnosis Comments VITAMIN B12 (CYANOCOBALAMIN), SERUM Routine 11/14/2022 10:50 AM EDT Vitamin B12 deficiency VITAMIN D, 25-HYDROXY, TOTAL, IMMUNOASSAY Routine 11/14/2022 10:50 AM EDT Vitamin D Defiency documented in this encounter Results * Due to [place] law, this organization might not be sharing [...] D, (D2,D3), LC/MS/MS is recommended: order code 89054 (patients >2yrs). See Note 1 Note 1 For additional information, please refer to http://education.[employer]/faq/NJJ776 (This link is being provided for informational/ educational purposes only.) 11/14/2022 10:5 0 AM EDT 11/14/2022 10:58 PM EDT Narrative Resulting Agency Comment [id number] us Vale Walls TICKET WORKER LABORATORY Final Resul t Performing Organization Address City/[facility] Co de Phone Number [facility] [address] [place] [address] * (ABNORMAL) VITAMIN B12 (CYANOCOBALAMIN), SERUM (11/14/2022 10:50 AM EDT) Vitamin B12 (Cobalamins) 1197(H) 200 - 1100 pg/mL [facility] 11/14/2022 10:5 0 AM EDT 11/14/2022 10:58 PM EDT Narrative Resulting Agency Comment [id number] Vale Walls TICKET WORKER LABORATORY Final Resul t Performing Organization Address [facility] Co de Phone Number [facility] [address] [place] [address] documented in this encounter Visit Diagnoses Diagnosis Vitamin B12 deficiency Other B-complex deficiencies Vitamin D Defiency documented in this encounter Care Teams Remedial Teacher Relationship Specialty Start Date End Date Vale Walls NP [address] [place] [address] PCP - General Geriatrics 07/13/20 Vale Walls NP [address] [place] [address] PCP - Backup PCP Geriatrics 10/06/21 documented as of this encounter
--- OUTSIDE RECORDS SUMMARY | 2024-05-15 10:18 | XMS_ITS | Encounter Summary ---
Author Organization [facility] Address [address] [place] [address] Care Team Providers Care Procurement Intern Name Role Phone Alison Francis MD Primary Care Provider Shreyas Orellana MD Primary Care Provider UnavailAshanti Smith MD Primary Care Provider [phone] Shreyas Orellana MD Primary Care Provider UnavailAshanti Smith MD Primary Care Provider Vale Walls ELECTRICAL SYSTEMS DRAFTER Primary Care Provider [phone] Chastity Cortes MD Unavailable Vale Walls ELECTRICAL SYSTEMS DRAFTER Unavailable Reason for Visit * Reason Comments E-prescribing Refill Request Encounter Details Date Type Department Care Team (Late st Contact Info) Description 03/30/2014 Refill July Internal Medicine [address] [place] [phone] Alison Francis MD [address] [place] [address] E-prescribing Refill Request Social History Tobacco Use [...] documented as of this encounter Care Teams Procurement Intern Relationship Specialty Start Date End Date Alison Francis MD PCP - General 03/20/10 09/01/15 Shreyas Orellana MD PCP - General Internal Medicine 09/02/15 07/07/19 Ashanti Kumar MD PCP - General Family Medicine 07/08/19 07/09/19 Shreyas Orellana MD PCP - General Internal Medicine 07/10/19 09/06/19 Ashanti Kumar MD PCP - General Family Medicine 09/07/19 07/12/20 Vale Walls NP [address] [place] [address] PCP - General Geriatrics 07/13/20 Chastity Cortes MD [address] [place] [address] PCP - Backup PCP Geriatrics 10/23/20 03/30/21 Vale Walls NP [address] [place] [address] PCP - Backup PCP Geriatrics 10/06/21 documented as of this encounter
--- OUTSIDE RECORDS SUMMARY | 2024-05-15 10:18 | XMS_ITS | Encounter Summary ---
Author Organization [facility] Address [address] [place] [address] Care Team Providers Care Technician'S Helper Name Role Phone Alison Francis MD Primary Care Provider Shreyas Orellana MD Primary Care Provider UnavailAshanti Smith MD Primary Care Provider [phone] Shreyas Orellana MD Primary Care Provider UnavailAshanti Smith MD Primary Care Provider Vale Walls FIRE PROTECTION FABRICATOR Primary Care Provider Chastity Cortes MD Unavailable Vale Walls FIRE PROTECTION FABRICATOR Unavailable Reason for Visit * Reason Comments E-prescribing Refill Request Encounter Details Date Type Department Care Team (Late st Contact Info) Description 05/04/2014 Refill July Internal Medicine [address] [place] [phone] Alison Francis MD [address] [place] [address] E-prescribing Refill Request Social History Tobacco Use [...] documented as of this encounter Care Teams Technician'S Helper Relationship Specialty Start Date End Date Alison Francis MD PCP - General 03/20/10 09/01/15 Shreyas Orellana MD PCP - General Internal Medicine 09/02/15 07/07/19 Ashanti Kumar MD PCP - General Family Medicine 07/08/19 07/09/19 Shreyas Orellana MD PCP - General Internal Medicine 07/10/19 09/06/19 Ashanti Kumar MD PCP - General Family Medicine 09/07/19 07/12/20 Vale Walls NP [address] [place] [address] PCP - General Geriatrics 07/13/20 Chastity Cortes MD [address] [place] [address] PCP - Backup PCP Geriatrics 10/23/20 03/30/21 Vale Walls NP [address] [place] [address] PCP - Backup PCP Geriatrics 10/06/21 documented as of this encounter
--- OUTSIDE RECORDS SUMMARY | 2024-05-15 10:18 | XMS_ITS | Encounter Summary ---
Author Organization [facility] Address [address] [place] [address] Care Team Providers Care Entry Level Lab Technician Name Role Phone Vale Walls PAYROLL HUMAN RESOURCES ASSISTANT Primary Care Provider [phone] Vale Walls PAYROLL HUMAN RESOURCES ASSISTANT Unavailable [phone] Encounter Details Date Type Department Care Team ([facility] st Contact Info) Description 04/11/2022 Orders Only [facility] [address] [facility] [address] [place] [address] Cornelio Barraza DO [address] [place], [place] [phone] Social History Tobacco Use Types Packs/Day Years [...] Start Date Job End Date 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
--- OUTSIDE RECORDS SUMMARY | 2024-05-15 10:18 | XMS_ITS | Encounter Summary ---
Author Organization [facility] Address [address] [place] [address] Care Team Providers Care Manager Telecom Name Role Phone Alison Francis MD Primary Care Provider [phone] Alison Francis MD Primary Care Provider [phone] Regan Darling MD Primary Care Provider [phone] Shreyas Orellana MD Primary Care Provider UnavailAshanti Smith MD Primary Care Provider [phone] Shreyas Orellana MD Primary Care Provider UnavailAshanti Smith MD Primary Care Provider [phone] Vale Walls NP Primary Care Provider [phone] Chastity Cortes MD Unavailable [phone] CouVale badillo MUSIC GRAPHER Unavailable [phone] Encounter Details Date Type Department Care Team (Late st Contact Info) Description 06/12/2007 Orders Only [facility] Internal Medicine [address] [place] [phone] Regan Darling MD [address] [place] [address] Social History Tobacco Use Types Packs/Day Years [...] of this encounter Procedures * Due to [facility] law, this organization might not be sharing negative HIV tests. Procedure Name Priority Date/Time Associated Diagnosis Comments CARDIAC RISK/LIPID PROFILE I Routine 06/12/2007 Hyperlipidemia BASIC METABOLIC PANEL Routine 06/12/2007 Hypertension documented in this encounter Results * Due to [place] law, this organization might not be sharing negative HIV tests. * (ABNORMAL) BASIC METABOLIC PANEL (06/12/2007) CALCIUM 9.1 8.6 - 10.2 MG/DL [facility] (CLIA# [id number]) BUN 24 7 - 25 MG/DL [facility] (CLIA# [id number]) CREATININE 0.67 0.50-1.30/ 1.20 MG/DL [facility] (CLIA# [id number]) BUN/Creatinine Ratio 36(H) 6 - 25 [facility] (CLIA# [id number]) Glucose 97 65 - 99 MG/DL [facility] (CLIA# [id number]) SODIUM 141 135 - 146 MMOL/L [facility] (CLIA# [id number]) POTASSIUM 3.9 3.5 - 5.3 MMOL/L [facility] (CLIA# [id number]) CHLORIDE 104 98 - 110 MMOL/L [facility] (CLIA# [id number]) CARBON DIOXIDE 25 21 - 33 MMOL/L [facility] (CLIA# [id number]) 06/12/2007 06/12/2007 8:2 9 PM EDT Regan Darling MD LAB SAME DAY RESULT Final Re sult [facility] (CLIA# [id number]) [address] [place] [address] * (ABNORMAL) CARDIAC RISK/LIPID PROFILE I (06/12/2007) CHOLESTEROL, TOTAL 216(H) 125 - 200 MG/DL [facility] (CLIA# [id number]) TRIGLYCERIDES 272(H) 30 - 149 MG/DL [facility] (CLIA# [id number]) HDL-CHOLESTEROL 33(L) 40 - 77 MG/DL [facility] (CLIA# [id number]) LDL-CHOLESTEROL 129 62 - 130 MG/DL [facility] (CLIA# [id number]) Comment: RISK CATEGORY: ??LDL-CHOLESTEROL GOAL CHD AND CHD RISK EQUIVALENTS: ??<100 MULTIPLE (2+) FACTORS: ??<130 ZERO TO ONE RISK FACTOR: ??<160 CHD RELATIVE RISK RATIO (TOTAL/HDL) 6.55(H) 0.0 - 5.0 [facility] (CLIA# [id number]) Comment:(1.8 X AVERAGE) 06/12/2007 06/12/2007 8:2 9 PM EDT Regan Darling MD LABORATORY Final Result [facility] (CLIA# [id number]) [address] [place] [address] documented in this encounter Visit Diagnoses Diagnosis Hyperlipidemia Other and unspecified hyperlipidemia Hypertension Unspecified essential hypertension documented in this encounter Additional Health Concerns Infection Onset Date Last Indicated Resolved Time COVID-19 Confirmed 07/11/2019 07/11/2019 0 8:12 PM EDT documented as of this encounter Care Teams Manager Telecom Relationship Specialty Start Date End Date Alison Francis MD PCP - General 03/20/10 09/01/15 Alison Francis MD PCP - General 07/02/07 03/19/10 Regan Darling MD [address] [place] [address] PCP - General 06/11/05 07/01/07 Shreyas Orellana MD [address] [place] [address] PCP - General Internal Medicine 09/02/15 07/07/19 Ashanti Kumar MD [address] [place] [address] PCP - General Family Medicine 07/08/19 07/09/19 Shreyas Orellana MD [address] [place] [address] PCP - General Internal Medicine 07/10/19 09/06/19 Ashanti Kumar MD [address] [place] [address] PCP - General Family Medicine 09/07/19 07/12/20 Vale Walls NP [address] [place] [address] PCP - General Geriatrics 07/13/20 Chastity Cortes MD [address] [place] [address] PCP - Backup PCP Geriatrics 10/23/20 03/30/21 Vale Walls NP [address] [place] [address] PCP - Backup PCP Geriatrics 10/06/21 documented as of this encounter
--- OUTSIDE RECORDS SUMMARY | 2024-05-15 10:19 | XMS_ITS | Encounter Summary ---
Author Organization [facility] Address [address] [place] [address] Care Team Providers Care Production Broacher Name Role Phone Alison Francis MD Primary Care Provider [phone] Shreyas Orelalna MD Primary Care Provider UnavailAshanti Smith MD Primary Care Provider Shreyas Orellana MD Primary Care Provider UnavailAshanti Smith MD Primary Care Provider [phone] Vale Walls MAINFRAME SOFTWARE DEVELOPER Primary Care Provider Chastity Cortes MD Unavailable Vale Walls MAINFRAME SOFTWARE DEVELOPER Unavailable [phone] Encounter Details Date Type Department Care Team (Late st Contact Info) Description 08/22/2011 Orders Only July Internal Medicine [address] [place] [address] Alison Francis MD [address] [place] [address] Social History Tobacco Use Types Packs/Day Years [...] of this encounter Procedures * Due to [facility] law, this organization might not be sharing [...] this encounter Results * Due to [place] law, this organization might not be sharing negative HIV tests. * (ABNORMAL) URINALYSIS, DIP ONLY ( SITE STAT ONLY) (08/22/2011 9:17 AM EDT) COLOR (URINE) YELLOW [facility] [employer] [facility] (CLIA# [id number]) APPEARANCE (URINE) CLOUDY(A) [facility] (CLIA# [id number]) SPECIFIC GRAVITY 1.020 1.001 - 1.035 [facility] (CLIA# [id number]) PH (URINE) 6.5 5.0 - 8.0 [facility] (CLIA# [id number]) PROTEIN (URINE) TRACE(A) Neg [facility] (CLIA# [id number]) GLUCOSE (URINE) NEGATIVE Neg [facility] (CLIA# [id number]) Ketones (Urine) NEGATIVE Neg [facility] (CLIA# [id number]) BILIRUBIN (URINE) NEGATIVE Neg [facility] (CLIA# [id number]) BLOOD (URINE) 3+(A) Neg [facility] (CLIA# [id number]) WBC (URINE) 3+(A) Neg [facility] (CLIA# [id number]) NITRITE (URINE) NEGATIVE Neg [facility] (CLIA# [id number]) Urine specimen (specimen) 08/22/2011 9:17 AM EDT Narrative [facility] (CLIA# [id number]) - 08/22/2011 9:18 AM EDT Culture already ordered per provider. Micro added. Alison Francis MD LAB SAME DAY RESULT Final Resul t [facility] [employer] [facility] (CLIA# [id number]) [address] [place] [address] * (ABNORMAL) URINALYSIS, MICROSCOPIC (08/22/2011 9:07 AM EDT) WBC (Urine) > OR = 60(A) < OR = 5 /HPF [facility] Comment:{WBC {[id number]) RBC (Urine Sed) 4-10(A) < OR = 3 /HPF [facility] Comment:{RBC {[id number]) Epithelial cells.squamous (Urine sed) 0-5 < OR = 5 /HPF [facility] Comment:{SQUAMOUS EPITHELIAL CELLS {[id number]) Bacteria (Urine) NONE SEEN NONE SEEN /HPF [facility] Comment:{BACTERIA {[id number]) Hyaline casts (Urine sed) NONE SEEN NONE SEEN /LPF [facility] Comment:{HYALINE CAST {[id number]) Service comment 01 SEE NOTE [facility] Comment: {NOTE {[id number]) This urine was analyzed for the presence of WBC, RBC, bacteria, casts, and other formed elements. Only those elements seen were reported. 08/22/2011 9:07 AM EDT 08/22/2011 12:50 PM EDT Narrative Resulting Agency Comment [id number] us Alison Francis MD LAB SAME DAY RESULT Final Resul t [facility] [address] [place] [address] * (ABNORMAL) CULTURE, URINE, ROUTINE (08/22/2011 9:07 AM EDT) Bacteria culture (Urine) SEE NOTE(A) [employer] Comment: {CULTURE, URINE, ROUTINE {[id number]) ??CULTURE, URINE, ROUTINE ??MICRO NUMBER: ?[id number] ??TEST STATUS: ? FINAL ??SPECIMEN SOURCE: ?? [...] 12:50 PM EDT Narrative Resulting Agency Comment [id number] Alison Francis MD LABORATORY Final Result [facility] [address] [place] [address] documented in this encounter Visit Diagnoses Diagnosis UTI (urinary tract infection), uncomplicated- Primary Urinary tract infection, site not specified documented in this encounter Additional Health Concerns Infection Onset Date Last Indicated Resolved Time COVID-19 Confirmed 07/11/2019 07/11/2019 0 8:12 PM EDT documented as of this encounter Care Teams Production Broacher Relationship Specialty Start Date End Date Alison Francis MD PCP - General 03/20/10 09/01/15 Shreyas Orellana MD PCP - General Internal Medicine 09/02/15 07/07/19 Ashanti Kumar MD PCP - General Family Medicine 07/08/19 07/09/19 Shreyas Orellana MD PCP - General Internal Medicine 07/10/19 09/06/19 Ashanti Kumar MD PCP - General Family Medicine 09/07/19 07/12/20 Vale Walls NP [address] [place] [address] PCP - General Geriatrics 07/13/20 Chastity Cortes MD [address] [place] [address] PCP - Backup PCP Geriatrics 10/23/20 03/30/21 Vale Walls NP [address] [place] [address] PCP - Backup PCP Geriatrics 10/06/21 documented as of this encounter
--- OUTSIDE RECORDS SUMMARY | 2024-05-15 10:19 | XMS_ITS | Encounter Summary ---
Author Organization [facility] Address [address] [place] [address] Care Team Providers Care Exercise Science Internship Name Role Phone Alison Francis MD Primary Care Provider [phone] Alison Francis MD Primary Care Provider [phone] Regan Darling MD Primary Care Provider [phone] Shreyas Orellana MD Primary Care Provider UnavailAshanti Smith MD Primary Care Provider [phone] Shreyas Orellana MD Primary Care Provider UnavailAshanti Smith MD Primary Care Provider [phone] Vale Walls NP Primary Care Provider [phone] Chastity Cortes MD Unavailable [phone] CouVale badillo CLEANING ASSOCIATE Unavailable [phone] Encounter Details Date Type Department Care Team (Late st Contact Info) Description 04/09/2007 Orders Only [facility] Internal Medicine [address] [place] [phone] Regan Darling MD [address] [place] [address] Social History Tobacco Use Types Packs/Day [...] of this encounter Procedures * Due to [facility] law, this organization might not be [...] encounter Results * Due to [place] [employer] law, this organization might not be sharing negative HIV tests. * VITAMIN D, 25-HYDROXY, LC/MS/MS (04/09/2007) Vitamin D, 25-OH, Total 23 20 - 100 NG/ML [facility] (CLIA# [id number]) VITAMIN D, 25-OH, D3 (CHOLECALCIFEROL ) 23 NG/ML [facility] (CLIA# [id number]) VITAMIN D, 25-OH, D2 (CALCIFEROL) <4 NG/ML [facility] (CLIA# [id number]) Comment: 25-OHD3 INDICATES BOTH ENDOGENOUS PRODUCTION AND [...] MD LABORATORY Final Result Performing Organization Address City/[facility]/ZIP Co de Phone Number [facility] (CLIA# [id number]) [address] [place] [address] * (ABNORMAL) CBC W/O DIFFERENTIAL (04/09/2007) WHITE BLOOD COUNT 5.4 3.8 - 10.8 THOUS/UL [facility] (CLIA# [id number]) RBC 5.18(H) 3.80 - 5.10 MIL/UL [facility] (CLIA# [id number]) Hemoglobin 15.2 11.7 - 15.5 G/DL [facility] (CLIA# [id number]) HCT (HEMATOCRIT) 44.4 35.0 - 45.0 % [facility] (CLIA# [id number]) MCV 85.8 80.0 - 100.0 FL [facility] (CLIA# [id number]) MCH 29.4 27.0 - 33.0 PG [facility] (CLIA# [id number]) MCHC 34.3 32.0 - 36.0 G/DL [facility] (CLIA# [id number]) PLATELETS 236 140 - 400 THOUS/UL [facility] (CLIA# [id number]) RDW 13.0 11.0 - 15.0 % [facility] (CLIA# [id number]) MPV 7.9 7.5 - 11.5 FL [facility] (CLIA# [id number]) 04/09/2007 04/09/2007 3:2 4 PM EST Regan Darling MD LABORATORY Final Result Performing Organization Address City/[facility]/ZIP Co de Phone Number [facility] (CLIA# [id number]) [address] [place] [address] * (ABNORMAL) CARDIAC RISK/LIPID PROFILE I (04/09/2007) CHOLESTEROL, TOTAL 248(H) 125 - 200 MG/DL [facility] (CLIA# [id number]) TRIGLYCERIDES 122 30 - 149 MG/DL [facility] (CLIA# [id number]) HDL-CHOLESTEROL 58 40 - 77 MG/DL [facility] (CLIA# [id number]) LDL-CHOLESTEROL 166(H) 62 - 130 MG/DL [facility] (CLIA# [id number]) Comment: RISK CATEGORY: ??LDL-CHOLESTEROL GOAL CHD AND CHD RISK EQUIVALENTS: ??<100 MULTIPLE (2+) FACTORS: ??<130 ZERO TO ONE RISK FACTOR: ??<160 CHD RELATIVE RISK RATIO (TOTAL/HDL) 4.28 0.0 - 5.0 [facility] (CLIA# [id number]) Comment:(1.0 X AVERAGE) 04/09/2007 04/09/2007 3:2 4 PM EST Regan Darling MD LABORATORY Final Result [facility] (CLIA# [id number]) [address] [place] [address] * (ABNORMAL) BASIC METABOLIC PANEL (04/09/2007) CALCIUM 9.0 8.6 - 10.2 MG/DL [facility] (CLIA# [id number]) BUN 22 7 - 25 MG/DL [facility] (CLIA# [id number]) CREATININE 0.79 0.50-1.30/ 1.20 MG/DL [facility] (CLIA# [id number]) BUN/Creatinine Ratio 28(H) 6 - 25 [facility] (CLIA# [id number]) Glucose 98 65 - 99 MG/DL [facility] (CLIA# [id number]) SODIUM 140 135 - 146 MMOL/L [facility] (CLIA# [id number]) POTASSIUM 4.1 3.5 - 5.3 MMOL/L [facility] (CLIA# [id number]) CHLORIDE 108 98 - 110 MMOL/L [facility] (CLIA# [id number]) CARBON DIOXIDE 19(L) 21 - 33 MMOL/L [facility] (CLIA# [id number]) 04/09/2007 04/09/2007 3:2 4 PM EST us Regan Darling MD LAB SAME DAY RESULT Final Re sult [facility] (CLIA# [id number]) [address] [place] [address] * (ABNORMAL) URINALYSIS, COMPLETE (DIP & MICRO) (04/09/2007) COLOR (URINE) YELLOW YELLOW [facility] (CLIA# [id number]) APPEARANCE (URINE) TURBID(A) CLEAR [facility] (CLIA# [id number]) SPECIFIC GRAVITY 1.028 1.001 - 1.035 [facility] (CLIA# [id number]) PH (URINE) 5.5 5.0 - 8.0 [facility] (CLIA# [id number]) PROTEIN (URINE) NEG NEG [facility] (CLIA# [id number]) GLUCOSE (URINE) NEG NEG [facility] (CLIA# [id number]) Ketones (Urine) NEG NEG [facility] (CLIA# [id number]) BILIRUBIN (URINE) NEG NEG [facility] (CLIA# [id number]) BLOOD (URINE) NEG NEG [facility] (CLIA# [id number]) WBC (URINE) NEG NEG [facility] (CLIA# [id number]) NITRITE (URINE) NEG NEG [facility] (CLIA# [id number]) WBC (URINE) 0-4 0-4/HPF [facility] (CLIA# [id number]) RBC (Urine Sed) 0 0-3/HPF [facility] (CLIA# [id number]) EPITHELIAL CELLS.SQUAMOUS (URINE SED) 0 0-5/HPF [facility] (CLIA# [id number]) EPITHELIAL CELLS.TRANSITIO NAL (URINE SED) 0 0-5/HPF [facility] (CLIA# [id number]) EPITHELIAL CELLS.RENAL (URINE SED) 0 0-3/HPF [facility] (CLIA# [id number]) BACTERIA (URINE) NONE SEEN NONE SEEN [facility] (CLIA# [id number]) 04/09/2007 04/09/2007 3:2 4 PM EST Regan Darling MD LAB SAME DAY RESULT Final Re sult [facility] (CLIA# [id number]) [address] [place] [address] * THYROID CASCADE (04/09/2007) TSH, THYROTROPIN 1.38 0.40 - 4.50 UIU/ML [facility] (CLIA# [id number]) 04/09/2007 04/09/2007 3:2 4 PM EST Regan Darling MD LABORATORY Final Result Performing Organization Address City/[facility]/ZIP Co de Phone Number [facility] (CLIA# [id number]) [address] [place] [address] documented in this encounter Visit Diagnoses Diagnosis [...] documented as of this encounter Care Teams Exercise Science Internship Relationship Specialty Start Date End Date Alison Francis MD PCP - General 03/20/10 09/01/15 Alison Francis MD PCP - General 07/02/07 03/19/10 Regan Darling MD [address] [place] [address] PCP - General 06/11/05 07/01/07 Shreyas Orellana MD [address] [place] [address] PCP - General Internal Medicine 09/02/15 07/07/19 Ashanti Kumar MD [address] [place] [address] PCP - General Family Medicine 07/08/19 07/09/19 Shreyas Orellana MD [address] [place] [address] PCP - General Internal Medicine 07/10/19 09/06/19 Ashanti Kumar MD [address] [place] [address] PCP - General Family Medicine 09/07/19 07/12/20 Vale Walls NP [address] [place] [address] PCP - General Geriatrics 07/13/20 Chastity Cortes MD [address] [place] [address] PCP - Backup PCP Geriatrics 10/23/20 03/30/21 Vale Walls NP [address] [place] [address] PCP - Backup PCP Geriatrics 10/06/21 documented as of this encounter
--- OUTSIDE RECORDS SUMMARY | 2024-05-15 10:19 | XMS_ITS | Encounter Summary ---
Author Organization [facility] Address [address] [place] [address] Care Team Providers Care Hand Winder Name Role Phone Vale Walls MANUAL WINDER Primary Care Provider [phone] CouVale badillo MANUAL WINDER Unavailable [phone] Reason for Visit * Reason Comments Med Change Request Encounter Details Date Type Department Care Team ([facility] Contact Info) Description 04/05/2024 [facility] Orthopedic Surgery [address] [address] Fady Berg MD [address] [place] [address] Med Change Request Social History Tobacco Use [...] Start Date Job End Date 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
--- OUTSIDE RECORDS SUMMARY | 2024-05-15 10:19 | XMS_ITS | Encounter Summary ---
Author Organization [facility] Address [address] [place] [address] Care Team Providers Care Athlete Manager Name Role Phone Alison Francis MD Primary Care Provider [phone] Shreyas Orellana MD Primary Care Provider UnavailAshanti Smith MD Primary Care Provider Shreyas Orellana MD Primary Care Provider Unavaila Ashanti Shetty MD Primary Care Provider Vale Walls STOVE FITTER Primary Care Provider [phone] Chastity Cortes MD Unavailable Vale Walls STOVE FITTER Unavailable [phone] Encounter Details Date Type Department Care Team (Late st Contact Info) Description 12/10/2012 Orders Only [facility] Rheumatology [address] [place] [address] Chalino Diaz MD [address] [place] [address] Social History Tobacco Use Types Packs/Day Years [...] of this encounter Procedures * Due to [place] 8 Securities law, this organization might not be sharing [...] in this encounter Results * Due to [place] 8 Securities law, this organization might not be sharing negative HIV tests. * CBC INCLUDES DIFFERENTIAL AND PLATELET COUNT (12/10/2012 1:46 PM EDT) WBC 6.0 3.8 - 10.8 Thousand/u L [facility] Comment:{WHITE BLOOD CELL CO UNT {[id number]) RBC 4.57 3.80 - 5.10 Million/uL [facility] Comment:{RED BLOOD CELL COUN T {[id number]) Hemoglobin 13.4 11.7 - 15.5 g/dL [facility] Comment:{HEMOGLOBIN {[id number]) Hematocrit 40.9 35.0 - 45.0 % [facility] Comment:{HEMATOCRIT {[id number]) MCV 89.6 80.0 - 100.0 fL [facility] Comment:{MCV {[id number]) MCH 29.4 27.0 - 33.0 pg [facility] Comment:{MCH {[id number]) MCHC 32.8 32.0 - 36.0 g/dL [facility] Comment:{MCHC {[id number]) RDW 13.2 11.0 - 15.0 % [facility] Comment:{RDW {[id number]) PLT 207 140 - 400 Thousand/u L [facility] Comment:{PLATELET COUNT {[id number]) MPV 8.1 7.5 - 11.5 fL [facility] Comment:{MPV {[id number]) Neutrophils # 2850 1500 - 7800 cells/uL [facility] Comment:{ABSOLUTE NEUTROPHIL S {[id number]) Lymphocytes # 2550 850 - 3900 cells/uL [facility] Comment:{ABSOLUTE LYMPHOCYTE S {[id number]) Monocytes # 456 200 - 950 cells/uL [facility] Comment:{ABSOLUTE MONOCYTES {[id number]) Eosinophils # 90 15 - 500 cells/uL [facility] Comment:{ABSOLUTE EOSINOPHIL S {[id number]) Basophils # 54 0 - 200 cells/uL [facility] Comment:{ABSOLUTE BASOPHILS {[id number]) Neutrophils % 47.5 % [facility] Comment:{NEUTROPHILS {[id number]) Lymphocytes % 42.5 % [facility] Comment:{LYMPHOCYTES {[id number]) Monocytes % 7.6 % [facility] Comment:{MONOCYTES {[id number]) Eosinophils % 1.5 % [facility] Comment:{EOSINOPHILS {[id number]) Basophils % 0.9 % [facility] Comment:{BASOPHILS {[id number]) 12/10/2012 1:46 PM EDT 12/10/2012 9:11 PM EDT Narrative [facility] - 12/11/2012 2:18 AM EDT Report Comments: WHICH ACCOUNT IS THIS ORDER RELATED TO OTHER THAN P/F?-> REORDERED FOR ALL ORDERING PROVIDERS Resulting Agency Comment [id number] us Chalino Diaz MD LAB SAME DAY RESULT Final Resul t [facility] [address] [place] [address] * COMPREHENSIVE METABOLIC PANEL WITH GFR (12/10/2012 1:46 PM EDT) Glucose 91 65 - 99 mg/dL [facility] Comment: {GLUCOSE {[id number]) ? Fasting reference interval Urea Nitrogen Blood (BUN) 23 7 - 25 mg/dL [facility] Comment:{UREA NITROGEN (BUN) {[id number]) Creatinine 0.75 0.60 - 0.93 mg/dL [facility] Comment: {CREATININE {[id number]) For patients >49 years of age, the reference limit for Creatinine is approximately 13% higher for people identified as -[place] Islander. GFR 79 > OR = 60 mL/min/1 .73m2 [facility] Comment:{eGFR NON-AFR. AMERI CAN {[id number]) GFR () 91 > OR = 60 mL/min/1 .73m2 [facility] Comment:{eGFR AMERIC AN {[id number]) BUN/Creatinine Ratio NOT APPLICABLE (calc) [facility] Comment:{BUN/CREATININE RATI O {[id number]) Sodium 140 135 - 146 mmol/L [facility] Comment:{SODIUM {[id number]) Potassium 3.8 3.5 - 5.3 mmol/L [facility] Comment:{POTASSIUM {[id number]) Chloride 107 98 - 110 mmol/L [facility] Comment:{CHLORIDE {[id number]) Carbon dioxide 25 19 - 30 mmol/L [facility] Comment:{CARBON DIOXIDE {[id number]) Calcium 9.1 8.6 - 10.4 mg/dL [facility] Comment:{CALCIUM {[id number]) Protein Total (Serum) 7.2 6.1 - 8.1 g/dL [facility] Comment:{PROTEIN, TOTAL {[id number]) Albumin 4.0 3.6 - 5.1 g/dL [facility] Comment:{ALBUMIN {[id number]) Globulin 3.2 1.9 - 3.7 g/dL (calc) [facility] Comment:{GLOBULIN {[id number]) Albumin/Globulin 1.3 1.0 - 2.5 (calc) [facility] Comment:{ALBUMIN/GLOBULIN RA QUENTIN {[id number]) Bilirubin Total 0.4 0.2 - 1.2 mg/dL [facility] Comment:{BILIRUBIN, TOTAL {[id number]) Alkaline phosphatase 55 33 - 130 U/L [facility] Comment:{ALKALINE PHOSPHATAS E {[id number]) AST (SGOT) 23 10 - 35 U/L [facility] Comment:{AST {[id number]) ALT (SGPT) 18 6 - 29 U/L [facility] Comment:{ALT {[id number]) 12/10/2012 1:46 PM EDT 12/10/2012 9:11 [...] FOR ALL ORDERING PROVIDERS Resulting Agency Comment [id number] us Chalino Diaz MD LABORATORY Final Result [facility] [address] [place] [address] * URINALYSIS, COMPLETE INCLUDES DIPSTICK AND MICROSCOPIC (12/10/2012 1:46 PM EDT) Color (Urine) YELLOW YELLOW [facility] Comment:{COLOR {[id number]) Appearance (Urine) CLEAR CLEAR [facility] Comment:{APPEARANCE {[id number]) Specific gravity (Urine) 1.014 1.001 - 1.035 [facility] Comment:{SPECIFIC GRAVITY {[id number]) pH (Urine) 7.0 5.0 - 8.0 [facility] Comment:{PH {[id number]) Glucose (Urine) NEGATIVE NEGATIVE [facility] Comment:{GLUCOSE {[id number]) Bilirubin (Urine) NEGATIVE NEGATIVE [facility] Comment:{BILIRUBIN {[id number]) Ketones (Urine) NEGATIVE NEGATIVE [facility] Comment:{KETONES {[id number]) Hemoglobin (Urine) NEGATIVE NEGATIVE [facility] Comment:{OCCULT BLOOD {[id number]) Protein (Urine) NEGATIVE NEGATIVE [facility] Comment:{PROTEIN {[id number]) Nitrite (Urine) NEGATIVE NEGATIVE [facility] Comment:{NITRITE {[id number]) Leukocyte esterase (Urine) NEGATIVE NEGATIVE [facility] Comment:{LEUKOCYTE ESTERASE {[id number]) WBC (Urine) 0-5 < OR = 5 /HPF [facility] Comment:{WBC {[id number]) RBC (Urine Sed) NONE SEEN < OR = 3 /HPF [facility] Comment:{RBC {[id number]) Epithelial cells.squamous (Urine sed) 0-5 < OR = 5 /HPF [facility] Comment:{SQUAMOUS EPITHELIAL CELLS {[id number]) Bacteria (Urine) NONE SEEN NONE SEEN /HPF [facility] Comment:{BACTERIA {[id number]) Hyaline casts (Urine sed) NONE SEEN NONE SEEN /LPF [facility] Comment:{HYALINE CAST {[id number]) 12/10/2012 1:46 PM EDT 12/10/2012 9:11 PM EDT Narrative [facility] - 12/11/2012 1:40 AM EDT Report Comments: WHICH ACCOUNT IS THIS ORDER RELATED TO OTHER THAN P/F?-> REORDERED FOR ALL ORDERING PROVIDERS Resulting Agency Comment [id number] us Chalino Diaz MD LAB SAME DAY RESULT Final Resul t [facility] [address] [place] [address] documented in this encounter Visit Diagnoses Diagnosis Ds DNA antibody positive- Primary Other and unspecified nonspecific immunological findings documented in this encounter Additional Health Concerns Infection Onset Date Last Indicated Resolved Time COVID-19 Confirmed 07/11/2019 07/11/2019 0 8:12 PM EDT documented as of this encounter Care Teams Athlete Manager Relationship Specialty Start Date End Date Alison Francis MD PCP - General 03/20/10 09/01/15 Shreyas Orellana MD PCP - General Internal Medicine 09/02/15 07/07/19 Ashanti Kumar MD PCP - General Family Medicine 07/08/19 07/09/19 Shreyas Orellana MD PCP - General Internal Medicine 07/10/19 09/06/19 Ashanti Kumar MD PCP - General Family Medicine 09/07/19 07/12/20 Vale Walls NP [address] [place] [address] PCP - General Geriatrics 07/13/20 Chastity Cortes MD [address] [place] [address] PCP - Backup PCP Geriatrics 10/23/20 03/30/21 Vale Walls NP [address] [place] [address] PCP - Backup PCP Geriatrics 10/06/21 documented as of this encounter
--- OUTSIDE RECORDS SUMMARY | 2024-05-15 10:19 | XMS_ITS | Encounter Summary ---
Author Organization [facility] Address [address] [place] [address] Care Team Providers Care Emergency Planning And Response Manager Name Role Phone Alison Francis MD Primary Care Provider Shreyas Orellana MD Primary Care Provider UnavailAshanti Smith MD Primary Care Provider [phone] Shreyas Orellana MD Primary Care Provider UnavailAshanti Smith MD Primary Care Provider [phone] Vale Walls SPORTS MEDIA Primary Care Provider Chastity Cortes MD Unavailable Vale Walls SPORTS MEDIA Unavailable Encounter Details Date Type Department Care Team (Late st Contact Info) Description 08/26/2011 Orders Only [facility] Internal Medicine [address] [place] [address] Alison Francis MD [address] [place] [address] Social History Tobacco Use Types Packs/Day Years [...] of this encounter Procedures * Due to [place] law, this organization might not be sharing negative HIV tests. Procedure Name Priority Date/Time Associated Diagnosis Comments BASIC METABOLIC PANEL WITH (GFR) Routine 08/26/2011 2:49 PM EDT Hypertension documented in this encounter Results * Due to [place] [employer] law, this organization might not be sharing negative HIV tests. * (ABNORMAL) BASIC METABOLIC PANEL WITH (GFR) (08/26/2011 2:49 PM EDT) Glucose 104(H) 65 - 99 mg/dL [facility] Comment: {GLUCOSE {[id number]) ? Fasting reference interval Urea Nitrogen Blood (BUN) 21 7 - 25 mg/dL [facility] Comment:{UREA NITROGEN (BUN) {[id number]) Creatinine 0.96(H) 0.60 - 0.93 mg/dL [facility] Comment: {CREATININE {[id number]) For patients >49 years of age, the reference limit for Creatinine is approximately 13% higher for people identified as -Slovak. GFR 59(L) > OR = 60 mL/min/1. 73m2 [facility] Comment:{eGFR NON-AFR. AMERI CAN {[id number]) GFR () 68 > OR = 60 mL/min/1. 73m2 [facility] Comment:{eGFR AMERIC AN {[id number]) BUN/Creatinine Ratio 22 6 - 22 (calc) [facility] Comment:{BUN/CREATININE RATI O {[id number]) Sodium 140 135 - 146 mmol/L [facility] Comment:{SODIUM {[id number]) Potassium 3.0(L) 3.5 - 5.3 mmol/L [facility] Comment:{POTASSIUM {[id number]) Chloride 102 98 - 110 mmol/L [facility] Comment:{CHLORIDE {[id number]) Carbon dioxide 27 21 - 33 mmol/L [facility] Comment:{CARBON DIOXIDE {[id number]) Calcium 9.6 8.6 - 10.4 mg/dL [facility] Comment:{CALCIUM {[id number]) 08/26/2011 2:49 PM EDT 08/26/2011 10:58 [...] needs for GFR calculation. Resulting Agency Comment [id number] Alison Francis MD LABORATORY Final Result [facility] [address] [place] [address] documented in this encounter Visit Diagnoses Diagnosis Hypertension Unspecified essential hypertension documented in this encounter Additional Health Concerns Infection Onset Date Last Indicated Resolved Time COVID-19 Confirmed 07/11/2019 07/11/2019 0 8:12 PM EDT documented as of this encounter Care Teams Emergency Planning And Response Manager Relationship Specialty Start Date End Date Alison Francis MD PCP - General 03/20/10 09/01/15 Shreyas Orellana MD PCP - General Internal Medicine 09/02/15 07/07/19 Ashanti Kumar MD PCP - General Family Medicine 07/08/19 07/09/19 Shreyas Orellana MD PCP - General Internal Medicine 07/10/19 09/06/19 Ashanti Kumar MD PCP - General Family Medicine 09/07/19 07/12/20 Vale Walls NP [address] [place] [address] PCP - General Geriatrics 07/13/20 Chastity Cortes MD [address] [place] [address] PCP - Backup PCP Geriatrics 10/23/20 03/30/21 Vale Walls NP [address] [place] [address] PCP - Backup PCP Geriatrics 10/06/21 documented as of this encounter
--- OUTSIDE RECORDS SUMMARY | 2024-05-15 10:19 | XMS_ITS | Encounter Summary ---
Author Organization [facility] Address [address] [place] [address] Care Team Providers Care Skimmer Scoop Operator Name Role Phone Alison Francis MD Primary Care Provider [phone] Shreyas Orellana MD Primary Care Provider UnavailAshanti Smith MD Primary Care Provider Shreyas Orellana MD Primary Care Provider UnavailAshanti Smith MD Primary Care Provider Vale Walls CHILDREN'S TUTOR NURSERY Primary Care Provider Chastity Cortes MD Unavailable [phone] Vale Walls [employer] Unavailable Encounter Details Date Type Department Care Team (Late st Contact Info) Description 12/04/2012 Orders Only [facility] Internal Medicine [address] [place] [address] Alison Francis MD [address] [place] [address] Social History Tobacco Use Types Packs/Day Years [...] appt with Dr Diaz on 12/10/12 at [facility] Rheum. Dept, [place]. 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 Called pt [phone] (home). She is aware. documented in this encounter Plan of Treatment Not on file documented as of this encounter Procedures * Due to [place] law, this organization might not be sharing negative HIV tests. Procedure Name Priority Date/Time Associated Diagnosis Comments EKG-TO BE READ & BILLED BY ADULT OR PEDIATRIC CARDIOLOGY Routine 12/04/2012 2:40 PM EDT Arthralgia SM/STRATEGIC CONSULTANT ANTIBODY Routine 12/04/2012 2:14 PM EDT Arthralgia DNA (DS) ANTIBODY Routine 12/04/2012 2:1 4 PM EDT Arthralgia ZEENAT SCREEN IFA W/REFLEX TO TITER/PATTERN IFA Routine 12/04/2012 2:14 PM EDT Arthralgia documented in this encounter Results * Due to [place] law, this organization might not be sharing [...] INBSKT RTG Final Result Performing Organization Address [facility]/ZIP Co de Phone Number MUSE EKG SYSTEM * SM/STRATEGIC CONSULTANT ANTIBODY (12/04/2012 2:14 PM EDT) Wilson extractable nuclear Ab+Ribonucleopr otein extractable nuclear Ab <1.0 NEG <1.0 NEG AI [facility] Comment:{SM/STRATEGIC CONSULTANT ANTIBODY {[id number]) 12/04/2012 2:14 PM EDT 12/04/2012 11:10 PM EDT Narrative Resulting Agency Comment [id number] Alison Francis MD LABORATORY Final Result Performing Organization Address [facility] de Phone Number [facility] [address] [place] [address] * (ABNORMAL) DNA (DS) ANTIBODY (12/04/2012 2:14 PM EDT) Dna (DS) Antibody 14(H) IU/mL [facility] Comment: {DNA (DS) ANTIBODY {[id number]) ? IU/mL ? Interpretation ? < or = 4 ?Negative ? 5-9 ? Indeterminate ? > or = 10 ?? Positive 12/04/2012 2:14 PM EDT 12/04/2012 11:10 PM EDT Narrative Resulting Agency Comment [id number] Alison Francis MD LABORATORY Final Result [facility] [address] [place] [address] * ZEENAT SCREEN IFA W/REFLEX TO TITER/PATTERN IFA (12/04/2012 2:14 PM EDT) ZEENAT IFA NEGATIVE NEGATIVE [facility] Comment:{ZEENAT SCREEN, IFA {[id number]) 12/04/2012 2:14 PM EDT 12/04/2012 11:10 PM EDT Narrative Resulting Agency Comment [id number] Alison Francis MD LABORATORY Final Result Performing Organization Address City/[facility] Co de Phone Number [facility] [address] [place] [address] documented in this encounter Visit Diagnoses Diagnosis Arthralgia- Primary Pain in joint, site unspecified documented in this encounter Additional Health Concerns Infection Onset Date Last Indicated Resolved Time COVID-19 Confirmed 07/11/2019 07/11/2019 0 8:12 PM EDT documented as of this encounter Care Teams Skimmer Scoop Operator Relationship Specialty Start Date End Date Alison Francis MD PCP - General 03/20/10 09/01/15 Shreyas Orellana MD PCP - General Internal Medicine 09/02/15 07/07/19 Ashanti Kumar MD PCP - General Family Medicine 07/08/19 07/09/19 Shreyas Orellana MD PCP - General Internal Medicine 07/10/19 09/06/19 Ashanti Kumar MD PCP - General Family Medicine 09/07/19 07/12/20 Vale Walls NP [address] [place] [address] PCP - General Geriatrics 07/13/20 Chastity Cortes MD [address] [place] [address] PCP - Backup PCP Geriatrics 10/23/20 03/30/21 Vale Walls NP [address] [place] [address] PCP - Backup PCP Geriatrics 10/06/21 documented as of this encounter
--- OUTSIDE RECORDS SUMMARY | 2024-05-15 10:19 | XMS_ITS | Encounter Summary ---
Author Organization [facility] Address [address] [place] [address] Care Team Providers Care Booth Supervisor Name Role Phone Alison Francis MD Primary Care Provider [phone] Shreyas Orellana MD Primary Care Provider UnavailAshanti Smith MD Primary Care Provider [phone] Shreyas Orellana MD Primary Care Provider UnavailAshanti Smith MD Primary Care Provider [phone] Vale Walls VEHICLE MONITOR TECHNICIAN Primary Care Provider Chastity Cortes MD Unavailable [phone] Vale Walls VEHICLE MONITOR TECHNICIAN Unavailable [phone] Reason for Visit * Reason Onset Date Comments Dizziness 08/29/2011 Encounter Details Date Type Department Care Team (Late st Contact Info) Description 08/29/2011 Telephone [facility] Internal Medicine [address] [place] [address] Alison Francis MD [address] [place] [address] Dizziness Social History Tobacco Use Types Packs/Day [...] her way now to take pt [facility] er for evaluation Advised for pt and [...] documented as of this encounter Care Teams Booth Supervisor Relationship Specialty Start Date End Date Alison Francis MD PCP - General 03/20/10 09/01/15 Shreyas Orellana MD PCP - General Internal Medicine 09/02/15 07/07/19 Ashanti Kumar MD PCP - General Family Medicine 07/08/19 07/09/19 Shreyas Orellana MD PCP - General Internal Medicine 07/10/19 09/06/19 Ashanti Kumar MD PCP - General Family Medicine 09/07/19 07/12/20 Vale Walls NP [address] [place] [address] PCP - General Geriatrics 07/13/20 Chastity Cortes MD [address] [place] [address] PCP - Backup PCP Geriatrics 10/23/20 03/30/21 Vale Walls NP [address] [place] [address] PCP - Backup PCP Geriatrics 10/06/21 documented as of this encounter
--- OUTSIDE RECORDS SUMMARY | 2024-05-15 10:19 | XMS_ITS | Encounter Summary ---
Author Organization [facility] Address [address] [place] [address] Care Team Providers Care Patient Safety Attendant Name Role Phone Ashanti Kumar MD Primary Care Provider Vale Walls PHYSICIAN CODING SPECIALIST Primary Care Provider Chastity Cortes MD Unavailable [phone] Vale Walls PHYSICIAN CODING SPECIALIST Unavailable [phone] Encounter Details Date Type Department Care Team (Late st Contact Info) Description 01/31/2020 Orders Only [facility] [address] [place] [id number] Mirna Almaraz, RN [address] [place] [address] Social History Tobacco Use Types Packs/Day Years [...] Start Date Job End Date 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 Procedure Name Priority Date/Time Associated Diagnosis Comments VENIPUNCTURE Routine 01/31/2020 1:50 PM EST Hypertension documented in this encounter Results * Due to [place] [employer] law, this organization might not be sharing [...] approximately 13% higher for people identified as -Ukrainian. EGFR 60 > OR = 60 mL/min/1. [...] needs for GFR calculation. Resulting Agency Comment [id number] us Andrew Davis MD LABORATORY Final Result [facility] [address] [place] [address] documented in this encounter Visit Diagnoses Diagnosis Hypertension Essential hypertension, benign documented in this encounter Care Teams Patient Safety Attendant Relationship Specialty Start Date End Date Ashanti Kumar MD PCP - General Family Medicine 09/07/19 07/12/20 Vale Walls NP [address] [place] [address] PCP - General Geriatrics 07/13/20 Chastity Cortes MD [address] [place] [address] PCP - Backup PCP Geriatrics 10/23/20 03/30/21 Vale Walls NP [address] [place] [address] PCP - Backup PCP Geriatrics 10/06/21 documented as of this encounter
--- OUTSIDE RECORDS SUMMARY | 2024-05-15 10:20 | XMS_ITS | Clinical Summary ---
Author Organization [facility] Address [address] [place] [address] Care Team Providers Care Animal Caregiver Name Role Phone Vale Walls Primary Care Provider [phone] Allergies No known active allergies Medications verapamil [...] - 04/22/2024 11:59 PM EST Hospital Encounter [facility] XRay [address] [place] [phone] Piero Hilton MD Pain Discharge Disposition: Home or Self Care () 04/22/2024 8:07 AM EST - 04/22/2024 11:59 PM EST Hospital Encounter [facility] Spine Procedure Clinic [address] [place] [phone] Piero Hilton MD Radiculopathy of lumbar region (Primary Dx) Discharge Disposition: Home or Self Care () 04/18/2024 5:23 PM EST - 04/19/2024 3:15 PM EST Emergency [facility] Emergency Department [address] [place] [phone] Fermin Hawkins MD Sheridan, Andrew R., MD Jiang, Zhenyang, MD Back pain at L4-L5 level (Primary Dx); Urinary tract infection without hematuria, site unspecified; Acute left-sided low back pain with left-sided sciatica; Impaired mobility Discharge Disposition: Home with Services (06) 04/18/2024 Telephone [facility] B [address] [place] [phone] Holli Fenton PA 04/12/2024 Orders Only [facility] [address] [place] [phone] Holli Fenton PA Radiculopathy of lumbar region (Primary Dx) 04/12/2024 Telephone [facility] B [address] [place] [phone] Telephone Intake, Staff PAC Appt Request - Established [place] 04/11/2024 1:00 PM EST Telehealth [facility] [address] [place] [phone] Holli Fenton PA Radiculopathy of lumbar region (Primary Dx); Spinal stenosis of lumbar region with neurogenic claudication; Sacral insufficiency fracture with routine healing 04/03/2024 Orders Only [facility] [address] [address] Holli Fenton PA Radiculopathy, lumbar region 03/25/2024 11:30 AM EST Office Visit [facility] A [address] [place] [phone] Holli Fenton PA Radiculopathy of lumbar region (Primary Dx) 03/14/2024 Orders Only [facility] - External Imaging [address] [place] [phone] Radiology, External 03/14/2024 Orders Only [facility] - External Imaging [address] [place] [address] Radiology, External 03/11/2024 Telephone [facility] A [address] [place] [address] Telephone Intake, Staff PAC [place] ED Escalation 03/09/2024 11:51 AM EST - 03/09/2024 7:06 PM EST Emergency [facility] Emergency Department [address] [place] [address] Marcia Charles MD Closed fracture of sacrum, unspecified portion of sacrum, initial encounter ([facility]) (Primary Dx) Discharge Disposition: Home or [...] Sex Female 9:48 AM EDT Gender Identity Female 05/11/2024 3:02 PM EST Sexual Orientation Straight 05/11/2024 3: 02 PM EST Last Filed Vital Signs Vital Sign Reading [...] Description 05/17/2024 11:00 AM EST Office Visit [facility] Rheumatology Clinic [address] [place] [address] Sql Dba: Marcia Orlando MD [address] [place] [address] Yesica Mi PA [address] [place] [address] 07/11/2024 3:20 PM EDT Follow-Up [facility] A [address] [place] [address] Piero Hilton MD [address], [place] [phone] Health Maintenance Due Date Last Done Comments [...] complete this topic Procedures * Due to [place] state law, this organization might not be sharing negative HIV tests. Procedure Name Priority Date/Time Associated Diagnosis Comments [place] C-ARM INJECTION NON-REPORTABLE Routine 04/22/2024 12:19 PM EST Pain WA NJX DX/THER SBST INTRLMNR LMBR/SAC W/IMG GDN [...] Last 3 Months Results * Due to [place] state law, this organization might not be sharing negative HIV tests. * FL C-Arm Injection Spine NONREPORTABLE (04/22/2024 12:19 PM EST) Narrative IMAGING - 04/22/2024 12:19 PM EST This procedure does not contain a result. Please see the surgeon's note for official report. us Piero ALICIA FLUOROSCOPY PROCEDURES Final Result IMAGING * [place] NJX DX/THER SBST INTRLMNR LMBR/SAC W/IMG GDN [...] Patient's understanding of procedure matches consent: Yes [place] Protocol: ? Procedure consent matches procedure scheduled: [...] outpatient to the ambulatory injection suite at [facility]. ? Vital signs were monitored before [...] lateral fluoroscopic images. ??A radiopaque epidural catheter (TheraCath, Arrow) was advanced [...] obtain the completed interpretation. ? Workstation ID: [id number] Narrative 04/19/2024 5:26 AM EST COMPARISON: CT lumbar spine 04/18/2024. ??Lumbar spine MRI 04/03/2024. FINDINGS AND Resulting Agency Comment [id number] Procedure Note Clem Holguin, DO - 04/19/2024 COMPARISON: CT lumbar spine 04/18/2024. Lumbar spine MRI 04/03/2024. FINDINGS AND IMPRESSION: The bones are diffusely demineralized. Unchanged dextroconvex scoliosisof the lumbar spine and advanced multilevel degenerative changes ascharacterized on prior MRI. Unchanged degenerative grade 1anterolisthesis at L4-L5. Chronic compression deformity of the B6saqtgefxg body. Unchanged subacute sacral insufficiency fractures. If this radiology report contains a blank impression section, it is anincomplete radiology report. Please contact the interpreting radiologistor applicable radiology division as soon as possible to obtain thecompleted interpretation. Workstation ID: [id number] us Elvis Tran MD IMG XR PROCEDURES [...] obtain the completed interpretation. ? Workstation ID: [id number] Up-to-date CT equipment and radiation dose reduction techniques were employed. CTDIvol: 14.7 mGy. DLP: 672 mGy-cm. ??The following accession numbers are related to this dose report [id number]: [id number] Up-to-date CT equipment and radiation dose reduction techniques were employed. CTDIvol: 14.7 mGy. DLP: 672 mGy-cm. ??The following accession numbers are related to this dose report [id number]: [id number] Narrative 04/18/2024 10:15 PM EST COMPARISON: 03/09/2024. [...] described sacral insufficiency fractures. Resulting Agency Comment [id number] Procedure Note Harpreet Estrada MD - 04/18/2024 [...] possible to obtain thecompleted interpretation. Workstation ID: [id number] Up-to-date CT equipment and radiation dose reduction techniques wereemployed. CTDIvol: 14.7 mGy. DLP: 672 mGy-cm. The following accessionnumbers are related to this dose report [id number]: [id number] Up-to-date CT equipment and radiation dose reduction techniques wereemployed. CTDIvol: 14.7 mGy. DLP: 672 mGy-cm. The following accessionnumbers are related to this dose report [id number]: [id number] us Fermin Hawkins MD [facility] CT PROCEDURES Final Result * CT Abd [...] obtain the completed interpretation. ? Workstation ID: [id number] Up-to-date CT equipment and radiation dose reduction techniques were employed. CTDIvol: 14.7 mGy. DLP: 672 mGy-cm. ??The following accession numbers are related to this dose report [id number]: [id number] Up-to-date CT equipment and radiation dose reduction techniques were employed. CTDIvol: 14.7 mGy. DLP: 672 mGy-cm. ??The following accession numbers are related to this dose report [id number]: [id number] Narrative 04/18/2024 10:15 PM EST COMPARISON: 03/09/2024. [...] described sacral insufficiency fractures. Resulting Agency Comment [id number] Procedure Note Harpreet Estrada MD - 04/18/2024 [...] possible to obtain thecompleted interpretation. Workstation ID: [id number] Up-to-date CT equipment and radiation dose reduction techniques wereemployed. CTDIvol: 14.7 mGy. DLP: 672 mGy-cm. The following accessionnumbers are related to this dose report [id number]: [id number] Up-to-date CT equipment and radiation dose reduction techniques wereemployed. CTDIvol: 14.7 mGy. DLP: 672 mGy-cm. The following accessionnumbers are related to this dose report [id number]: [id number] us Fermin Hawkins MD G CT PROCEDURES Final Result * [place] Top, Urine (04/18/2024 6:43 PM EST) Extra Tube Hold for add-ons. 04/18/2024 11:05 PM EST [facility] Comment:Auto resulted. Urine Urine specimen collection, clean catch / Unknown Non-Blood Collection / Unknown 04/18/2024 6:43 PM EST 04/18/2024 6:43 PM EST Fermin Hawkins MD LAB URINE ORDERABLES Final Resul t [facility] [address] [place] [address], [place] * (ABNORMAL) Urinalysis W/Reflex to Microscopic & Culture (04/18/2024 6:43 PM EST) Color, Urine Yellow Colorless, Light Yellow, Yellow, Dark Yellow 04/18/2024 7:03 PM EST [facility] Clarity, Urine Slightly Cloudy(A) Clear 04/18/2024 7:03 PM EST [facility] Specific [place], Urine 1.025 1.005 - 1.030 04/18/2024 7:03 PM EST [facility] pH, Urine 5.0 4.6 - 8.0 04/18/2024 7:03 PM EST [facility] Protein, Urine Negative Negative 04/18/2024 7:03 PM EST [facility] Glucose, Urine Negative Negative 04/18/2024 7:03 PM EST [facility] Ketones, Urine Negative Negative 04/18/2024 7:03 PM EST [facility] Bilirubin, Urine Negative Negative 04/18/2024 7:03 PM EST [facility] Blood, Urine Negative Negative 04/18/2024 7:03 PM EST [facility] Nitrite, Urine Negative Negative 04/18/2024 7:03 PM EST [facility] Urobilinogen, Urine Positive(A) Normal 04/18/2024 7:03 PM EST [facility] Leukocyte Esterase, Urine 1+(A) Negative 04/18/2024 7:03 PM EST [facility] WBC, Urine 10(H) 0 - 2 /HPF 04/18/2024 7:03 PM EST [facility] RBC, Urine 2 0 - 2 /HPF 04/18/2024 7:03 PM EST [facility] Hyaline Casts, Urine 2 0 - 2 /LPF 04/18/2024 7:03 PM EST [facility] Squamous Epithelial Cells, Urine 4 /HPF 04/18/2024 7:03 PM EST [facility] Bacteria, Urine Rare(A) None /HPF /HPF 04/18/2024 7:03 PM EST [facility] Mucus, Urine Rare /LPF 04/18/2024 7:03 PM EST [facility] Urine Urine specimen collection, clean catch / Unknown Non-Blood Collection / Unknown 04/18/2024 6:43 PM EST 04/18/2024 6:43 PM EST Fermin Hawkins MD LAB URINE ORDERABLES Final Resul t Performing Organization Address [facility] Co de Phone Number [facility] [address] [place] [phone], * Urine Culture, Routine (04/18/2024 6:43 PM EST) Culture Mixed genital carmelita isolated. These superficial bacteria are not indicative of a urinary tract infection. No further organism identification is warranted on this specimen. 04/20/2024 1:03 AM EST [facility] Urine Urine specimen collection, clean catch / Unknown Non-Blood Collection / Unknown 04/18/2024 6:43 PM EST 04/18/2024 7:02 PM EST Narrative [facility] - 04/20/2024 1:03 AM EST [facility] Received Date: MICRO NUMBER: [id number] SPECIMEN QUALITY: Adequate SOURCE: URINE CLEAN CATCH STATUS: FINAL If clinically indicated, recollect clean-catch, mid-stream urine and transfer immediately to Urine Culture Transport Tube. us Elvis Tran MD LAB MICROBIOLOGY - GENERAL ORDERABLES Final Result Performing Organization Address City/[facility]/ZIP Co de Phone Number [address] Floor, [place] [address], [facility] [address], [place] [address], [place] [phone] * (ABNORMAL) CBC Auto Differential (04/18/2024 12:18 PM EST) Only the most recent of2 resultswithin the time period is included. WBC 9.0 3.8 - 10.8 10*3/uL 04/18/2024 12:40 PM EST [facility] RBC 4.45 3.80 - 5.10 10*6/uL 04/18/2024 12:40 PM EST [facility] Hemoglobin 12.7 11.7 - 15.5 g/dL 04/18/2024 12:40 PM EST [facility] Hematocrit 38.4 35.0 - 45.0 % 04/18/2024 12:40 PM EST [facility] MCV 86.3 80.0 - 100.0 fL 04/18/2024 12:40 PM EST [facility] MCH 28.5 27.0 - 33.0 pg 04/18/2024 12:40 PM EST [facility] MCHC 33.1 32.0 - 36.0 g/dL 04/18/2024 12:40 PM EST [facility] RDW 14.0 11.0 - 15.0 % 04/18/2024 12:40 PM EST [facility] Platelets 219 140 - 400 10*3/uL 04/18/2024 12:40 PM EST [facility] MPV 8.9 7.5 - 12.5 fL 04/18/2024 12:40 PM EST [facility] Neutrophil % 69.1 % 04/18/2024 12:40 PM EST [facility] Immature Grans % 0.4 0.0 - 0.9 % 04/18/2024 12:40 PM EST [facility] Lymphocyte % 18.8 % 04/18/2024 12:40 PM EST [facility] Monocyte % 8.3 % 04/18/2024 12:40 PM EST [facility] Eosinophil % 2.8 % 04/18/2024 12:40 PM EST [facility] Basophil % 0.6 % 04/18/2024 12:40 PM EST [facility] Neutrophil # 6.21 1.50 - 7.80 10*3/uL 04/18/2024 12:40 PM EST [facility] Immature Grans # 0.04(H) <=0.03 10*3/uL 04/18/2024 12:40 PM EST [facility] Lymphocyte # 1.70 0.85 - 3.90 10*3/uL 04/18/2024 12:40 PM EST [facility] Monocyte # 0.80 0.20 - 0.95 10*3/uL 04/18/2024 12:40 PM EST [facility] Eosinophil # 0.30 0.02 - 0.50 10*3/uL 04/18/2024 12:40 PM EST [facility] Basophil # 0.10 0.00 - 0.20 10*3/uL 04/18/2024 12:40 PM EST [facility] nRBC % 0.0 /100 WBCs 04/18/2024 12:40 PM EST [facility] nRBC # <0.01 <0.01 10*3/uL 04/18/2024 12:40 PM EST [facility] Blood Structure of peripheral vein / Unknown Venipuncture / Unknown 04/18/2024 12:18 PM EST 04/18/2024 12:33 PM EST us Fermin Hawkins MD LAB BLOOD ORDERABLES Final Resul t [facility] [address] [place] [address], * (ABNORMAL) Comprehensive Metabolic Panel (If age > 70) (04/18/2024 12:18 PM EST) Only the most recent of2 resultswithin the time period is included. NA 138 135 - 145 mmol/L 04/18/2024 1:35 PM EST [facility] K 4.2 3.5 - 5.3 mmol/L 04/18/2024 1:35 PM EST [facility] Cl 107 98 - 107 mmol/L 04/18/2024 1:35 PM EST [facility] CO2 19(L) 22 - 32 mmol/L 04/18/2024 1:35 PM EST [facility] Anion Gap 12 5 - 15 04/18/2024 1:35 PM EST [facility] Glucose 99 65 - 99 mg/dL 04/18/2024 1:35 PM EST [facility] Creatinine 0.89 0.50 - 1.20 mg/dL 04/18/2024 1:35 PM EST [facility] Calcium 9.3 8.6 - 10.5 mg/dL 04/18/2024 1:35 PM EST [facility] Total Protein 6.8 6.0 - 8.0 g/dL 04/18/2024 1:35 PM EST [facility] Albumin 3.8 3.5 - 5.2 g/dL 04/18/2024 1:35 PM EST [facility] Bilirubin, Total 0.5 0.2 - 1.2 mg/dL 04/18/2024 1:35 PM [facility] Alkaline Phosphatase 181(H) 35 - 129 U/L 04/18/2024 1:35 PM EST [facility] AST 25 10 - 40 U/L 04/18/2024 1:35 PM [facility] ALT 9(L) 10 - 40 U/L 04/18/2024 1:35 PM EST [facility] BUN 24(H) 7 - 23 mg/dL 04/18/2024 1:35 PM EST [facility] eGFR 64 >=60 mL/min/1. 73m2 04/18/2024 1:35 PM EST [facility] Comment:The estimated glomer [...] - 4.2 g/dL 04/18/2024 1:35 PM EST [facility] A/G Ratio 1.3(L) 1.5 - 3.0 04/18/2024 1:35 PM EST [facility] Blood Structure of peripheral vein / Unknown Venipuncture / Unknown 04/18/2024 12:18 PM EST 04/18/2024 12:33 PM EST us Fermin Hawkins MD LAB BLOOD ORDERABLES Final Resul t [facility] [address] [place] [address], [place] * MRI Lumbar Spine WO Contrast [...] 4. ??Probable chronic compression deformity at L1. *Rolette critical alert A(n) Rolette actionable finding has been communicated to the ordering or responsible provider via the iMemories system on 04/06/2024 11:04 AM. ??Receipt of this communication by the responsible provider will be documented in iMemories upon receiving acknowledgement if applicable, Message ID [id number]. If this radiology report contains a blank impression section, it is an incomplete radiology report. ??Please contact the interpreting radiologist or applicable radiology division as soon as possible to obtain the completed interpretation. ? Workstation ID: [id number] Narrative 04/06/2024 11:04 AM EST EXAMINATION: MRI [...] CT abdomen/pelvis dated 03/09/2024. Resulting Agency Comment [id number] Procedure Note Ree Blanton MD - 04/06/2024 [...] involving the bilateral sacral ala spanning the S1-P2hyygsuakf bodies consistent with reactive changes secondary to [...] 4. 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 *Rolette critical alert A(n) Rolette actionable finding has been communicated to the ordering orresponsible provider via the iMemories system on04/06/2024 11:04 AM. Receipt of this communication by the responsibleprovider will be documented in TATE[facility]S LIST Findings uponreceiving acknowledgement if applicable, Message ID [id number]. If this radiology report contains a blank impression section, it is anincomplete radiology report. Please contact the interpreting radiologistor applicable radiology division as soon as possible to obtain thecompleted interpretation. Workstation ID: [id number] Holli CLAUDIO IMPaul MRI PROCEDURES Final Resul [...] obtain the completed interpretation. ? Workstation ID: [id number] Narrative 03/09/2024 7:00 PM EST COMPARISON: CT from earlier in the same day. FINDINGS AND Resulting Agency Comment [id number] Procedure Note Harpreet Estrada MD - 03/09/2024 [...] possible to obtain thecompleted interpretation. Workstation ID: [id number] Marcia Charles MD IMG XR PROCEDURES Final Resu lt from Last [address] [place] [address] [address] Advance Directives * Full Code (Latest Code Status on File) Date Activated Date Inactivated Comments 04/19/2024 3:13 AM 04/19/2024 5:15 PM * Presumed Full Code Date Activated Date Inactivated Comments 04/19/2024 12:08 AM 04/19/2024 3:13 AM * Presumed Full Code Date Activated Date Inactivated Comments 07/18/2017 1:44 AM 07/18/2017 6:19 PM Care Teams Animal Caregiver Relationship Specialty Start Date End Date Vale Walls [address] [place] [phone] PCP - General Nurse Practitioner 03/08/24
--- OUTSIDE RECORDS SUMMARY | 2024-05-15 10:20 | XMS_ITS | Referral Summary ---
Author Organization [facility] Address [address] [place] [address] Care Team Providers Care Brick Catcher Name Role Phone Vale Walls Primary Care Provider [phone] Encounters Date Type Department Care Team Description 04/22/2024 8:07 AM EST - 04/22/2024 11:59 PM EST Hospital Encounter [facility] XRay [address] [place] [address] 23350 Piero Hilton MD Pain Discharge Disposition: Home or Self Care () 04/22/2024 8:07 AM EST - 04/22/2024 11:59 PM EST Hospital Encounter [facility] Spine Procedure Clinic [address] [place] [address]57[address] Piero Hilton MD Radiculopathy of lumbar region (Primary Dx) Discharge Disposition: Home or Self Care () 04/18/2024 5:23 PM EST - 04/19/2024 3:15 PM EST Emergency [facility] Emergency Department [address] [place] [address] 34800 Fermin Hawkins MD Sheridan, Andrew R., MD Jiang, Zhenyang, MD Back pain at L4-L5 level (Primary Dx); Urinary tract infection without hematuria, site unspecified; Acute left-sided low back pain with left-sided sciatica; Impaired mobility Discharge Disposition: Home with Services () 04/18/2024 Telephone [facility] B [address] [place] [address]45[address] Holli Fenton PA 04/12/2024 Orders Only [facility] for [facility] B [address] [place] [address] 37253 Holli Fenton PA Radiculopathy of lumbar region (Primary Dx) 04/12/2024 Telephone [facility] B [address] [place] [address] Telephone Intake, Staff PAC Appt Request - Established [place] 04/11/2024 1:00 PM EST Telehealth [facility] B [address] [place] [address] 79200 Holli Fenton PA Radiculopathy of lumbar region (Primary Dx); Spinal stenosis of lumbar region with neurogenic claudication; Sacral insufficiency fracture with routine healing 04/03/2024 Orders Only [facility] [address] [address] Holli Fenton PA Radiculopathy, lumbar region 03/25/2024 11:30 AM EST Office Visit [facility] A [address] [place] [address]98[address] Holli Fenton PA Radiculopathy of lumbar region (Primary Dx) 03/14/2024 Orders Only [facility] - External Imaging [address] [place] [address] Radiology, External 03/14/2024 Orders Only [facility] - External Imaging [address] [place] [address] Radiology, External 03/11/2024 Telephone [facility] A [address] [place] [address] 209[address] Telephone Intake, Staff PAC [place] ED Escalation 03/09/2024 11:51 AM EST - 03/09/2024 7:06 PM EST Emergency [facility] Emergency Department [address] [place] [address] 608[address] Marcia Charles MD Closed fracture of sacrum, unspecified portion of sacrum, initial encounter ([facility]) (Primary Dx) Discharge Disposition: Home [...] Date Resolved Date Abnormal urinalysis 04/19/2024 04/19/19 Assessment & Plan (04/19/2024 4:32 AM [...] Description 05/17/2024 11:00 AM EST Office Visit [facility] Rheumatology Clinic [address] [place] [address] Automotive Technician Instructor: Marcia Orlando MD [address] [place] [address] Yesica Mi PA [address] [place] [address] [phone] 07/11/2024 3:20 PM EDT Follow-Up [facility] A [address] [place] [address] Piero Hilton MD [address] [place] [address] [phone] Procedures * Due to [place] state law, this organization might not be sharing negative HIV tests. Procedure Name Priority Date/Time Associated Diagnosis Comments [place] C-ARM INJECTION NON-REPORTABLE Routine 04/22/2024 12:19 PM EST Pain [place] NJX DX/THER SBST INTRLMNR LMBR/SAC W/IMG GDN [...] Last 3 Months Results * Due to [place] state law, this organization might not be sharing negative HIV tests. * FL C-Arm Injection Spine NONREPORTABLE (04/22/2024 12:19 PM EST) Narrative IMAGING - 04/22/2024 12:19 PM EST This procedure does not contain a result. Please see the surgeon's note for official report. us Piero ALICIA FLUOROSCOPY PROCEDURES Final Result IMAGING * [place] NJX DX/THER SBST INTRLMNR LMBR/SAC W/IMG GDN [...] Patient's understanding of procedure matches consent: Yes Jenkins Protocol: ? Procedure consent matches procedure scheduled: [...] outpatient to the ambulatory injection suite at [facility]. ? Vital signs were monitored before [...] lateral fluoroscopic images. ??A radiopaque epidural catheter (SplystaCath, Arrow) was advanced through the epidural needle [...] obtain the completed interpretation. ? Workstation ID: [id number] Narrative 04/19/2024 5:26 AM EST COMPARISON: CT lumbar spine 04/18/2024. ??Lumbar spine MRI 04/03/2024. FINDINGS AND Resulting Agency Comment [id number] Procedure Note Clem Holguin, DO - 04/19/2024 COMPARISON: CT lumbar spine 04/18/2024. Lumbar spine MRI 04/03/2024. FINDINGS AND IMPRESSION: The bones are diffusely demineralized. Unchanged dextroconvex scoliosisof the lumbar spine and advanced multilevel degenerative changes ascharacterized on prior MRI. Unchanged degenerative grade 1anterolisthesis at L4-L5. Chronic compression deformity of the E2fwieiihqz body. Unchanged subacute sacral insufficiency fractures. If this radiology report contains a blank impression section, it is anincomplete radiology report. Please contact the interpreting radiologistor applicable radiology division as soon as possible to obtain thecompleted interpretation. Workstation ID: [id number] Elvis Tran MD IMG XR PROCEDURES Final [...] obtain the completed interpretation. ? Workstation ID: [id number] Up-to-date CT equipment and radiation dose reduction techniques were employed. CTDIvol: 14.7 mGy. DLP: 672 mGy-cm. ??The following accession numbers are related to this dose report [id number]: [id number] Up-to-date CT equipment and radiation dose reduction techniques were employed. CTDIvol: 14.7 mGy. DLP: 672 mGy-cm. ??The following accession numbers are related to this dose report [id number]: [id number] Narrative 04/18/2024 10:15 PM EST COMPARISON: 03/09/2024. [...] described sacral insufficiency fractures. Resulting Agency Comment [id number] Procedure Note Harpreet Estrada MD - 04/18/2024 [...] possible to obtain thecompleted interpretation. Workstation ID: [id number] Up-to-date CT equipment and radiation dose reduction techniques wereemployed. CTDIvol: 14.7 mGy. DLP: 672 mGy-cm. The following accessionnumbers are related to this dose report [id number]: [id number] Up-to-date CT equipment and radiation dose reduction techniques wereemployed. CTDIvol: 14.7 mGy. DLP: 672 mGy-cm. The following accessionnumbers are related to this dose report [id number]: [id number] Fermin Hawkins MD [facility] CT PROCEDURES Final Result * CT Abd [...] obtain the completed interpretation. ? Workstation ID: [id number] Up-to-date CT equipment and radiation dose reduction techniques were employed. CTDIvol: 14.7 mGy. DLP: 672 mGy-cm. ??The following accession numbers are related to this dose report [id number]: [id number] Up-to-date CT equipment and radiation dose reduction techniques were employed. CTDIvol: 14.7 mGy. DLP: 672 mGy-cm. ??The following accession numbers are related to this dose report [id number]: [id number] Narrative 04/18/2024 10:15 PM EST COMPARISON: 03/09/2024. [...] described sacral insufficiency fractures. Resulting Agency Comment [id number] Procedure Note Harpreet Estrada MD - 04/18/2024 [...] possible to obtain thecompleted interpretation. Workstation ID: [id number] Up-to-date CT equipment and radiation dose reduction techniques wereemployed. CTDIvol: 14.7 mGy. DLP: 672 mGy-cm. The following accessionnumbers are related to this dose report [id number]: [id number] Up-to-date CT equipment and radiation dose reduction techniques wereemployed. CTDIvol: 14.7 mGy. DLP: 672 mGy-cm. The following accessionnumbers are related to this dose report [id number]: [id number] Fermin Hawkins MD IMG CT PROCEDURES Final Result * [place] Top, Urine (04/18/2024 6:43 PM EST) Pathologist [facility] Extra Tube Hold for add-ons. 04/18/2024 11:05 PM EST [facility] Comment:Auto resulted. Urine Urine specimen collection, clean catch / Unknown Non-Blood Collection / Unknown 04/18/2024 6:43 PM EST 04/18/2024 6:43 PM EST Fermin Hawkins MD LAB URINE ORDERABLES Final Resul t [facility] [address] [place] [address], * (ABNORMAL) Urinalysis W/Reflex to Microscopic & Culture (04/18/2024 6:43 PM EST) Pathologist [facility] Color, Urine Yellow Colorless, Light Yellow, Yellow, Dark Yellow 04/18/2024 7:03 PM EST [facility] Clarity, Urine Slightly Cloudy(A) Clear 04/18/2024 7:03 PM EST [facility] Specific [place], Urine 1.025 1.005 - 1.030 04/18/2024 7:03 PM [facility] pH, Urine 5.0 4.6 - 8.0 04/18/2024 7:03 PM EST [facility] Protein, Urine Negative Negative 04/18/2024 7:03 PM EST [facility] Glucose, Urine Negative Negative 04/18/2024 7:03 PM [facility] Ketones, Urine Negative Negative 04/18/2024 7:03 PM EST [facility] Bilirubin, Urine Negative Negative 04/18/2024 7:03 PM EST [facility] Blood, Urine Negative Negative 04/18/2024 7:03 PM EST [facility] Nitrite, Urine Negative Negative 04/18/2024 7:03 PM EST [facility] Urobilinogen, Urine Positive(A) Normal 04/18/2024 7:03 PM EST [facility] Leukocyte Esterase, Urine 1+(A) Negative 04/18/2024 7:03 PM EST [facility] WBC, Urine 10(H) 0 - 2 /HPF 04/18/2024 7:03 PM EST [facility] RBC, Urine 2 0 - 2 /HPF 04/18/2024 7:03 PM EST [facility] Hyaline Casts, Urine 2 0 - 2 /LPF 04/18/2024 7:03 PM EST [facility] Squamous Epithelial Cells, Urine 4 /HPF 04/18/2024 7:03 PM EST [facility] Bacteria, Urine Rare(A) None /HPF /HPF 04/18/2024 7:03 PM EST [facility] Mucus, Urine Rare /LPF 04/18/2024 7:03 PM EST [facility] Urine Urine specimen collection, clean catch / Unknown Non-Blood Collection / Unknown 04/18/2024 6:43 PM EST 04/18/2024 6:43 PM EST us Fermin Hawkins MD LAB URINE ORDERABLES Final Resul t [facility] [address] [place] [address], [place] * Urine Culture, Routine (04/18/2024 6:43 PM EST) Culture Mixed genital carmelita isolated. These superficial bacteria are not indicative of a urinary tract infection. No further organism identification is warranted on this specimen. 04/20/2024 1:03 AM EST zintin Urine Urine specimen collection, clean catch / Unknown Non-Blood Collection / Unknown 04/18/2024 6:43 PM EST 04/18/2024 7:[address] [facility] DEO HON[place] - 04/20/2024 1:03 AM EST [facility] Received Date: MICRO NUMBER: [id number] SPECIMEN QUALITY: Adequate SOURCE: URINE CLEAN CATCH STATUS: FINAL If clinically indicated, recollect clean-catch, mid-stream urine and transfer immediately to Urine Culture Transport Tube. Elvis Tran MD LAB MICROBIOLOGY - GENERAL ORDERABLES Final Result [address] [facility], [place] [address], [employer] [facility] [address], [place] [address], * (ABNORMAL) CBC Auto Differential (04/18/2024 12:18 PM EST) Only the most recent of2 resultswithin the time period is included. WBC 9.0 3.8 - 10.8 10*3/uL 04/18/2024 12:40 PM EST [facility] RBC 4.45 3.80 - 5.10 10*6/uL 04/18/2024 12:40 PM EST [facility] Hemoglobin 12.7 11.7 - 15.5 g/dL 04/18/2024 12:40 PM [facility] Hematocrit 38.4 35.0 - 45.0 % 04/18/2024 12:40 PM EST [facility] MCV 86.3 80.0 - 100.0 fL 04/18/2024 12:40 PM [facility] MCH 28.5 27.0 - 33.0 pg 04/18/2024 12:40 PM [facility] MCHC 33.1 32.0 - 36.0 g/dL 04/18/2024 12:40 PM [facility] RDW 14.0 11.0 - 15.0 % 04/18/2024 12:40 PM [facility] Platelets 219 140 - 400 10*3/uL 04/18/2024 12:40 PM [facility] MPV 8.9 7.5 - 12.5 fL 04/18/2024 12:40 PM [facility] Neutrophil % 69.1 % 04/18/2024 12:40 PM [facility] Immature Grans % 0.4 0.0 - 0.9 % 04/18/2024 12:40 PM [facility] Lymphocyte % 18.8 % 04/18/2024 12:40 PM [facility] Monocyte % 8.3 % 04/18/2024 12:40 PM [facility] Eosinophil % 2.8 % 04/18/2024 12:40 PM [facility] Basophil % 0.6 % 04/18/2024 12:40 PM [facility] Neutrophil # 6.21 1.50 - 7.80 10*3/uL 04/18/2024 12:40 PM [facility] Immature Grans # 0.04(H) <=0.03 10*3/uL 04/18/2024 12:40 PM [facility] Lymphocyte # 1.70 0.85 - 3.90 10*3/uL 04/18/2024 12:40 PM [facility] Monocyte # 0.80 0.20 - 0.95 10*3/uL 04/18/2024 12:40 PM [facility] Eosinophil # 0.30 0.02 - 0.50 10*3/uL 04/18/2024 12:40 PM EST [facility] Basophil # 0.10 0.00 - 0.20 10*3/uL 04/18/2024 12:40 PM EST [facility] nRBC % 0.0 /100 WBCs 04/18/2024 12:40 PM EST [facility] nRBC # <0.01 <0.01 10*3/uL 04/18/2024 12:40 PM EST [facility] Blood Structure of peripheral vein / Unknown Venipuncture / Unknown 04/18/2024 12:18 PM EST 04/18/2024 12:33 PM EST us Fermin Hawkins MD LAB BLOOD ORDERABLES Final Resul t [facility] [address] [place] [id number], * (ABNORMAL) Comprehensive Metabolic Panel (If age > 70) (04/18/2024 12:18 PM EST) Only the most recent of2 resultswithin the time period is included. NA 138 135 - 145 mmol/L 04/18/2024 1:35 PM EST [facility] K 4.2 3.5 - 5.3 mmol/L 04/18/2024 1:35 PM EST [facility] Cl 107 98 - 107 mmol/L 04/18/2024 1:35 PM EST [facility] CO2 19(L) 22 - 32 mmol/L 04/18/2024 1:35 PM EST [facility] Anion Gap 12 5 - 15 04/18/2024 1:35 PM EST [facility] Glucose 99 65 - 99 mg/dL 04/18/2024 1:35 PM EST [facility] Creatinine 0.89 0.50 - 1.20 mg/dL 04/18/2024 1:35 PM [facility] Calcium 9.3 8.6 - 10.5 mg/dL 04/18/2024 1:35 PM [facility] Total Protein 6.8 6.0 - 8.0 g/dL 04/18/2024 1:35 PM [facility] Albumin 3.8 3.5 - 5.2 g/dL 04/18/2024 1:35 PM [facility] Bilirubin, Total 0.5 0.2 - 1.2 mg/dL 04/18/2024 1:35 PM [facility] Alkaline Phosphatase 181(H) 35 - 129 U/L 04/18/2024 1:35 PM [facility] AST 25 10 - 40 U/L 04/18/2024 1:35 PM [facility] ALT 9(L) 10 - 40 U/L 04/18/2024 1:35 PM [facility] BUN 24(H) 7 - 23 mg/dL 04/18/2024 1:35 PM [facility] eGFR 64 >=60 mL/min/1. 73m2 04/18/2024 1:35 PM [facility] Comment:The estimated glomer ular filtration [...] - 4.2 g/dL 04/18/2024 1:35 PM EST [facility] A/G Ratio 1.3(L) 1.5 - 3.0 04/18/2024 1:35 PM EST [facility] Blood Structure of peripheral vein / Unknown Venipuncture / Unknown 04/18/2024 12:18 PM EST 04/18/2024 12:33 PM EST us Fermin Hawkins MD LAB BLOOD ORDERABLES Final Resul t [facility] [address] [place] [address], [place] * MRI Lumbar Spine WO Contrast [...] 4. ??Probable chronic compression deformity at L1. *Lanier critical alert A(n) Lanier actionable finding has been communicated to the ordering or responsible provider via the [employer] system on 04/06/2024 11:04 AM. ??Receipt of this communication by the responsible provider will be documented in [email or web address] upon receiving acknowledgement if applicable, Message ID [id number]. If this radiology report contains a blank impression section, it is an incomplete radiology report. ??Please contact the interpreting radiologist or applicable radiology division as soon as possible to obtain the completed interpretation. ? Workstation ID: [id number] Narrative 04/06/2024 11:04 AM EST EXAMINATION: MRI [...] CT abdomen/pelvis dated 03/09/2024. Resulting Agency Comment [id number] Procedure Note Ree Blanton MD - 04/06/2024 [...] involving the bilateral sacral ala spanning the [id number]-[id number] bodies consistent with reactive changes secondary to [...] 4. 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 *Lanier critical alert A(n) Lanier actionable finding has been communicated to the ordering orresponsible provider via the [employer] system on04/06/2024 11:04 AM. Receipt of this communication by the responsibleprovider will be documented in playnik Findings uponreceiving acknowledgement if applicable, Message ID [id number]. If this radiology report contains a blank impression section, it is anincomplete radiology report. Please contact the interpreting radiologistor applicable radiology division as soon as possible to obtain thecompleted interpretation. Workstation ID: [id number] Holli CLAUDIO IMPaul MRI PROCEDURES Final Resul [...] obtain the completed interpretation. ? Workstation ID: [id number] Narrative 03/09/2024 7:00 PM EST COMPARISON: CT from earlier in the same day. FINDINGS AND Resulting Agency Comment [id number] Procedure Note Harpreet Estrada MD - 03/09/2024 [...] possible to obtain thecompleted interpretation. Workstation ID: [id number] Marcia Charles MD IMG XR PROCEDURES Final Resu lt from Last [address] [place] [address] [place] [address] Advance Directives * Full Code (Latest Code Status on File) Date Activated Date Inactivated Comments 04/19/2024 3:13 AM 04/19/2024 5:15 PM * Presumed Full Code Date Activated Date Inactivated Comments 04/19/2024 12:08 AM 04/19/2024 3:13 AM * Presumed Full Code Date Activated Date Inactivated Comments 07/18/2017 1:44 AM 07/18/2017 6:19 PM Care Teams Brick Catcher Relationship Specialty Start Date End Date Vale Walls [address] [place] [address] PCP - General Nurse Practitioner 03/08/24
--- OUTSIDE RECORDS SUMMARY | 2024-05-15 10:20 | XMS_ITS | Encounter Summary ---
Author Organization [facility] Address [address] [place] [address] Care Team Providers Care Data Entry Email Processor Name Role Phone Alison Francis MD Primary Care Provider [phone] Shreyas Orellana MD Primary Care Provider UnavailAshanti Smith MD Primary Care Provider [phone] Shreyas Orellana MD Primary Care Provider UnavailAshanti Smith MD Primary Care Provider Vale Walls MOBILITY SCOOTER REPAIRER Primary Care Provider Chastity Cortes MD Unavailable [phone] Vale Walls MOBILITY SCOOTER REPAIRER Unavailable Encounter Details Date Type Department Care Team (Late st Contact Info) Description 11/01/2010 Orders Only [facility] [address] [place] [address] Alison Francis MD [address] [place] [id number] Social History Tobacco Use Types Packs/Day Years [...] of this encounter Results * Due to [place] state law, this organization might not be sharing negative HIV tests. * VITAMIN B12 (CYANOCOBALAMIN), SERUM (05/26/2011 8:47 AM EST) Vitamin B12 (Cobalamins) 922 200 - 1100 pg/mL [facility] Comment:{VITAMIN B12 {[id number]) 05/26/2011 8:47 AM EST 05/26/2011 12:22 PM EST Narrative Resulting Agency Comment [id number] Alison Francis MD LABORATORY Final Result [facility] [address] [place] [address] documented in this encounter Visit Diagnoses Diagnosis Vitamin B12 deficiency- Primary Other B-complex deficiencies documented in this encounter Additional Health Concerns Infection Onset Date Last Indicated Resolved Time COVID-19 Confirmed 07/11/2019 07/11/2019 0 8:12 PM EDT documented as of this encounter Care Teams Data Entry Email Processor Relationship Specialty Start Date End Date Alison Francis MD PCP - General 03/20/10 09/01/15 Shreyas Orellana MD PCP - General Internal Medicine 09/02/15 07/07/19 Ashanti Kumar MD PCP - General Family Medicine 07/08/19 07/09/19 Shreyas Orellana MD PCP - General Internal Medicine 07/10/19 09/06/19 Ashanti Kumar MD PCP - General Family Medicine 09/07/19 07/12/20 Vale Walls NP [address] [place] [address] PCP - General Geriatrics 07/13/20 Chastity Cortes MD [address] [place] [id number] PCP - Backup PCP Geriatrics 10/23/20 03/30/21 Vale Walls NP [address] [place] [address] PCP - Backup PCP Geriatrics 10/06/21 documented as of this encounter
--- OUTSIDE RECORDS SUMMARY | 2024-05-15 10:20 | XMS_ITS | Encounter Summary ---
Author Organization [facility] Address [address] [place] [address] Care Team Providers Care Social Sciences Professor Name Role Phone Alison Francis MD Primary Care Provider Alison Francis MD Primary Care Provider [phone] Shreyas Orellana MD Primary Care Provider UnavailAshanti Smith MD Primary Care Provider [phone] Shreyas Orellana MD Primary Care Provider UnavailAshanti Smith MD Primary Care Provider [phone] Vale Walls [employer]ENT [employer]ILDING Primary Care Provider [phone] Chastity Cortes MD Unavailable [phone] Vale Walls [employer] Unavailable [phone] Encounter Details Date Type Department Care Team (Late st Contact Info) Description 02/01/2010 Orders Only May Internal Medicine [address] [place] [id number] Alison Francis MD [address] [place] [address] [id number] Social History Tobacco Use Types Packs/Day Years [...] of this encounter Results * Due to [place] state law, this organization might not be [...] MD LABORATORY Final Result Performing Organization Address [facility] Co de Phone Number [facility] [address] [place] [address] * T4, FREE THYROXINE (02/15/2010) FT4 1.07 0.8 - 1.8 NG/DL [facility] 02/15/2010 02/15/2010 6:0 8 PM EST us Alison Francis MD LABORATORY Final Result Performing Organization Address City/[facility]/ZIP Co de Phone Number [facility] [address] [place] [address] * TSH (THYROTROPIN) (02/15/2010) TSH, THYROTROPIN 1.730 0.40 - 4.50 UIU/ML [facility] 02/15/2010 02/15/2010 6:0 8 PM EST us Alison Francis MD LABORATORY Final Result Performing Organization Address [facility] Co de Phone Number [facility] [address] [place] [address] * ASPARTATE AMINOTRANSFERASE (AST), SERUM (02/15/2010) AST (SGOT) 22 10 - 35 U/L [facility] 02/15/2010 02/15/2010 6:0 8 PM EST Result [facility] us Alison Francis MD LAB SAME DAY RESULT Final Resul t Performing Organization Address [facility] de Phone Number [facility] [address] [place] [address] * ALANINE AMINOTRANSFERASE (ALT), SERUM (02/15/2010) ALT (SGPT) 20 6 - 40 U/L [facility] 02/15/2010 02/15/2010 6:0 8 PM EST Result [facility] us Alison Francis MD LAB SAME DAY RESULT Final Resul t Performing Organization Address [facility] de Phone Number [facility] [address] [place] [address] * (ABNORMAL) LIPID PANEL + CARDIAC RISK [...] MD LABORATORY Final Result Performing Organization Address [facility] Co de Phone Number [facility] [address] [place] [address] * (ABNORMAL) BASIC METABOLIC PANEL W/GLOMERULAR FILTRATION RATE (EGFR) (02/15/2010) Pathologist [facility] CALCIUM 8.9 8.6 - 10.2 MG/DL [facility] [...] Co de Phone Number [facility] [address] [place] [address] * CBC 5 PART DIFF (02/15/2010) Pathologist [facility] WHITE BLOOD COUNT 5.8 3.8 - 10.8 [...] RESULT Final Resul t Performing Organization Address City/State/[facility] Co de Phone Number [facility] [address] [place] [address] documented in this encounter Visit Diagnoses Diagnosis [...] documented as of this encounter Care Teams Social Sciences Professor Relationship Specialty Start Date End Date Alison [...] Medicine 09/07/19 07/12/20 Vale Walls NP [address] [place] [id number] PCP - General Geriatrics 07/13/20 Chastity Cortes MD [address] [place] [id number] PCP - Backup PCP Geriatrics 10/23/20 03/30/21 Vale Walls NP [address] [place] [id number] PCP - Backup PCP Geriatrics 10/06/21 documented as of this encounter
--- OUTSIDE RECORDS SUMMARY | 2024-05-15 10:20 | XMS_ITS | Encounter Summary ---
Author Organization [facility] Address [address] [place] [address] Care Team Providers Care Rn Infusion Name Role Phone Alison Francis MD Primary Care Provider [phone] Shreyas Orellana MD Primary Care Provider UnavailAshanti Smith MD Primary Care Provider [phone] Shreyas Orellana MD Primary Care Provider UnavailAshanti Smith MD Primary Care Provider Vale Walls [employer] Primary Care Provider [phone] Chastity Cortes MD Unavailable Vale Walls [employer] WORK[employer] Unavailable Reason for Visit * Reason Comments E-prescribing Refill Request Encounter Details Date Type Department Care Team (Late st Contact Info) Description 03/09/2011 Refill July Internal Medicine [address] [place] [phone] Alison Francis MD [address] [place] [id number] E-prescribing Refill Request Social History Tobacco Use [...] documented as of this encounter Care Teams Rn Infusion Relationship Specialty Start Date End Date Alison Francis MD PCP - General 03/20/10 09/01/15 Shreyas Orellana MD PCP - General Internal Medicine 09/02/15 07/07/19 Ashanti Kumar MD PCP - General Family Medicine 07/08/19 07/09/19 Shreyas Orellana MD PCP - General Internal Medicine 07/10/19 09/06/19 Ashanti Kumar MD PCP - General Family Medicine 09/07/19 07/12/20 Vale Walls NP [address] [place] [address] PCP - General Geriatrics 07/13/20 Chastity Cortes MD [address] [place] [id number] PCP - Backup PCP Geriatrics 10/23/20 03/30/21 Vale Walls NP [address] [place] [address] PCP - Backup PCP Geriatrics 10/06/21 documented as of this encounter
--- OUTSIDE RECORDS SUMMARY | 2024-05-15 10:20 | XMS_ITS | Continuity of Care Document ---
Author Organization [facility] Address [address] [place] [address] Care Team Providers Care Perinatal Educator Name Role Phone Vale Walls NP Primary Care Provider Vale Walls NP Unavailable [phone] Encounters Date Type Department Care Team Description 05/15/2024 Telephone [facility] [address] [place] [phone] Vale Walls NP Patient Questions 05/14/2024 Orders Only [facility] [address] [place] [address] Vale Walls NP 05/14/2024 Refill [facility] [address] [place] [address] [phone] Vale Walls NP E-prescribing Refill Request 04/11/2024 Refill [facility] Neurology [address] [place] [address] [address] [place] [address] Jillian Byrnes CRNP E-prescribing Refill Request 04/11/2024 Refill [facility] [address] [place] [address] Vale Walls NP E-prescribing Refill Request 04/11/2024 Refill [facility] [address] [place] [address] Vale Walls NP Error 04/09/2024 Telephone [facility] [address] [place] [address] Vale Walls NP Results 04/09/2024 Orders Only [facility] Bone Density [address] [place] [address] Chelsea Jacobs NP 04/05/2024 Refill [facility] Orthopedic Surgery [address] [address] Fady Berg MD Med Change Request 03/31/2024 Refill [facility] [address] 123 [facility] [address] [place] [address] Jillian Byrnes CRNP E-prescribing Refill Request 03/26/2024 Telephone [facility] [address] [place] [address] Vale Walls NP Pain; Results 03/22/2024 9:45 AM EST Radiology [facility] [address] [place] [address] At risk of fracture due to osteoporosis 03/15/2024 Orders Only [facility] [address] [place] [address] Vale Walls NP 03/14/2024 2:40 PM EST Consult (Initial) [facility] Orthopedic Surgery [address] [address] Fady Berg MD Low back pain of over 3 months duration (Primary Dx); Closed nondisplaced zone I fracture of sacrum, initial encounter ([facility]) 03/11/2024 1:30 PM EST Home Visit [facility] [address] [place] [address] Vale Walls NP Closed nondisplaced zone I fracture of sacrum with routine healing, subsequent encounter; Slow transit constipation; Hypertension; Bright red blood per rectum; At risk of fracture due to osteoporosis 03/11/2024 Telephone [facility] [address] [place] [address] Vale Walls NP Patient Questions 03/07/2024 Office Visit NON FC SA NON FC UNK Provider, Unknown 03/07/2024 Telephone [facility] [address] [place] [address] Vale Walls NP Patient Questions ; Sciatica 03/04/2024 Refill [facility] [address] [place] [phone] Vale Walls NP E-prescribing Refill Request 03/02/2024 7:30 PM EST Office Visit [address] [address] Chalino Ye MD Acute right-sided low back pain with right-sided sciatica (Primary Dx) 03/02/[address] [address] Rocio Gonzalez PA Leg Pain 03/02/2024 Telephone [facility] Night Triage [address] [place] [address] Vale Walls NP Labs/orders 03/01/2024 2:30 PM EST Radiology [address] [address] Gluteal pain 03/01/2024 1:30 PM EST Office Visit [address] [address] Rocio Gonzalez PA Lumbosacral radiculopathy (Primary Dx); Gluteal pain 03/01/2024 Telephone [facility] [address] [place] [address] Vale Walls NP Leg Pain 01/18/2024 9:00 AM EDT Office Visit [address] [address] Jennifer Robles MD Urinary pain (Primary Dx); Acute cystitis without hematuria 12/13/2023 Refill [facility] [address] [place] [phone] Vale Walls NP Refill Request 12/11/2023 Telephone [facility] [address] [place] [address] Vale Walls NP Medication Problem 12/07/2023 Refill [facility] [address] [place] [phone] Vale Walls NP Refill Request 11/29/2023 Refill [facility] [address] [address] Stacie Berry PA E-prescribing Refill Request 11/20/[address] [address] Vale Walls NP E-prescribing Refill Request 10/25/2023 Refill [facility] [address] [place] [phone] Vale Walls NP E-prescribing Refill Request 10/25/2023 10:45 AM EDT [facility] Visit [facility] [address] [place] [address] Vale Walls NP Seasonal allergic rhinitis due to pollen; Primary insomnia; Situational mixed anxiety and depressive disorder; Hypertension; Medication management 08/23/2023 4:15 PM EDT CPE - Comprehensive Physical Exam [address] [address] Vale Walls NP Restless leg (Primary Dx); Encounter for Medicare annual wellness exam; Unspecified dementia, unspecified severity, without behavioral disturbance, psychotic disturbance, mood disturbance, and anxiety (HCC) 07/30/2023 Refill [facility] [address] [address] Areli Farley MD E-prescribing Refill Request 07/30/2023 Refill [facility] [address] [place] [address] Vale Walls NP E-prescribing Refill Request 06/08/[address] [address] Vale Walls NP E-prescribing Refill Request 05/19/2023 4:15 PM EST Office Visit [address] [address] Azalia Bang PA Allergic conjunctivitis of both eyes (Primary Dx) 05/17/2023 12:45 PM EST Home Visit [facility] [address] [place] [address] Vale Walls NP Seasonal allergic rhinitis due to pollen; Vitamin D Defiency; Vitamin B12 deficiency; Stage 2 chronic kidney disease; Seizures (HCC); Primary insomnia; Mood disorder (HCC); Mild cognitive impairment; Hypertension; Bilateral impacted cerumen; Arteriosclerosis of aorta; Major depressive disorder, recurrent, in full remission (HCC) 05/05/[address] [address] Vale Walls NP E-prescribing Refill Request 03/21/[address] [address] Vale Walls NP Med Change Request 02/23/2023 Refill [facility] [address] [place] [phone] Areli Farley MD E-prescribing Refill Request 01/24/2023 11:30 AM EST [facility] [address] [place] [address] Vale Walls NP Mild cognitive impairment; Primary insomnia; Hypertension; Vitamin B12 deficiency; Stage 2 chronic kidney disease; Seizures (HCC); Mood disorder (HCC); Seasonal allergic rhinitis due to pollen 01/19/2023 Refill [facility] [address] [address] Areli Farley MD Med Change Request 01/04/2023 11:45 AM EDT Office Visit [address] [address] Chalino Ye MD Vaginal bleeding (Primary Dx); Hematuria, unspecified type; Rectal bleeding 01/04/2023 Telephone [facility] [address] [place] [address] Vale Walls NP Hematuria ; UTI 12/24/2022 Refill [facility] [address] [address] Areli Farley MD Med Change Request 12/13/2022 Telephone [facility] [address] [address] Areli Farley MD Follow Up 12/02/2022 9:30 AM EDT Consult (Initial) [facility] [address] [address] Areli Farley MD Mild cognitive impairment (Primary Dx) 11/15/2022 Telephone [facility] [address] [place] [address] Vale Walls NP Results 11/14/2022 Orders Only [facility] [address] [place] [address] Vale Walls NP 11/01/2022 12:45 PM EDT [facility] Visit [facility] [address] [place] [address] Vale Walls NP Memory loss; Hypertension; Situational mixed anxiety and depressive disorder; Primary insomnia 09/19/[address] [phone] Vale Walls NP E-prescribing Refill Request 09/19/2022 Telephone [facility] [address] [place] [address] Vale Walls NP Rash (/); Refill Request 08/16/2022 Refill [facility] [address] [place] [address] Vale Walls NP Refill Request 08/12/2022 7:15 PM EDT Office Visit [address] [address] Jennifer Juarez PA Acute conjunctivitis of left eye, unspecified acute conjunctivitis type (Primary Dx) 07/19/2022 9:00 AM EDT Home Visit [facility] [address] [place] [address] 580[address] Vale Walls NP Vitamin D Defiency; Vitamin B12 deficiency; Stage 2 chronic kidney disease; Situational mixed anxiety and depressive disorder; Seizures (HCC); Mood disorder (HCC); Hypertension; Candidiasis; Bilateral impacted cerumen; Chronic right-sided low back pain with bilateral sciatica 07/12/2022 Refill [facility] [address] [place] [phone] Vale Walls NP E-prescribing Refill Request 06/23/[address] [address] Vale Walls NP Diarrhea 06/06/2022 12:45 PM EDT Office Visit [facility] [address] [place] [phone] Lukasz Mensah, OD S/P bilateral cataract extraction 05/06/2022 10:50 AM EST Office Visit [facility] [address] [place] [phone] Kavon Haskins MD Pseudophakia 05/05/2022 8:30 AM EST Surgery/Major Procedure [facility] [address] [place] [address] [phone] Kavon Haskins MD Nuclear senile cataract of left eye 04/15/2022 9:30 AM EST Office Visit [facility] [address] [place] [phone] Kavon Haskins MD Presence of intraocular lens; Nuclear senile cataract of left eye; Pseudophakia 04/14/2022 7:30 AM EST Surgery/Major Procedure [facility] [address] [place] [phone] Kavon Haskins MD Nuclear senile cataract of right eye 04/11/2022 Orders Only [facility] Cardiology [address] 123 [facility] [address] [place] [address] Cornelio Barraza DO 04/11/2022 Orders Only [facility] Pre-Admission Testing [address] [address] SitholeGilmerGail S, [employer] 04/11/2022 Telephone [facility] [address] [facility] [address] [place] [address] Sithole Gail S, [employer] EKG 04/11/2022 10:00 AM EST Office Visit [facility] Pre-Admission Testing [address] [place] [phone] Sithole, Gail S, [employer] Preop examination (Primary Dx); Nuclear senile cataract of both eyes; Hypertension, benign; Other hyperlipidemia; Arteriosclerosis of aorta; Memory loss; Seizures (HCC); Stage 2 chronic kidney disease; Situational mixed anxiety and depressive disorder; Mood disorder (HCC) 03/22/2022 12:30 PM EST Home Visit [facility] [address] [place] [address] Vale Walls NP Mood disorder (HCC); Hypertension; Seizures (HCC); Arteriosclerosis of aorta; Adjustment insomnia 02/28/2022 Minor Procedure/Test [facility] [address] [place] [phone] Kavon Haskins MD 02/14/2022 10:20 AM EST Minor Procedure/Test [facility] [address] [place] [phone] Nuclear sclerosis, bilateral (Primary Dx) 12/24/2021 3:30 PM EDT Consult (Initial) [facility] [address] [place] [phone] Kavon Haskins MD Nuclear sclerosis, bilateral; Keratoconjunctivitis sicca not specified as Sjogren's, bilateral; Dermatochalasis of both upper eyelids 12/13/2021 2:00 PM EDT Office Visit [facility] [address] [place] [phone] Kayy Reid, OD Encounter for vision examination with abnormal findings (Primary Dx); Presbyopia of both eyes; Hypermetropia of both eyes; Regular astigmatism of both eyes; Nuclear sclerotic cataract of both eyes; Essential hypertension; Dry eye syndrome of both eyes 11/28/[address] [address] Vale Walls NP E-prescribing Refill Request 11/02/[address] [address] Vale Walls NP E-prescribing Refill Request 10/31/[address] [address] Vale Walls NP E-prescribing Refill Request 10/06/2021 10:15 AM EDT Office Visit [facility] [address] [place] [address] Vale Walls NP Stage 2 chronic kidney disease (Primary Dx); Adjustment insomnia; Situational mixed anxiety and depressive disorder 07/21/2021 10:15 AM EDT Home Visit [facility] [address] [place] [address] Vale Walls NP Hypertension; Stage 2 chronic kidney disease; Acute bilateral low back pain with bilateral sciatica; Vitamin B12 deficiency; Candidiasis 07/14/2021 Telephone [facility] [address] [place] [address] Vale Walls NP Geriatric Primary Care 07/06/[address] [address] Vale Walls NP E-prescribing Refill Request 07/05/2021 Orders Only [address] [address] Vale Walls NP 06/24/[address] [address] Vale Walls NP E-prescribing Refill Request 06/22/2021 Orders Only [facility] [address] [place] [address] Vale Walls NP 06/17/2021 Telephone [facility] [address] [address] Vale Walls NP Patient Questions 05/06/2021 9:00 AM EST Home Visit [address] [address] Vale Walls NP Advanced care planning/counseling discussion; Arteriosclerosis of aorta; Stage 2 chronic kidney disease; Vitamin B12 deficiency; Seizures (HCC); Memory loss; Hypertension; Vitamin D Defiency 04/02/[address] [address] Evette Roa NP E-prescribing Refill Request 12/17/[address] [address] Vale Walls NP Geriatric Primary Care 12/16/2020 9:00 AM EDT Home Visit [address] [address] Vale Walls NP Memory loss; Stage 2 chronic kidney disease; Hypertension; Advanced care planning/counseling discussion; Vitamin D Defiency; Vitamin B12 deficiency 11/30/2020 Telephone [facility] [address] [place] [phone] Kayy Reid OD Prescription Assistance 11/27/2020 11:30 AM EDT Office Visit [facility] [address] [place] [phone] Kayy Reid, OD Encounter for vision examination with abnormal findings (Primary Dx); Presbyopia of both eyes; Hypermetropia of both eyes; Regular astigmatism of both eyes; Essential hypertension; Nuclear sclerotic cataract of both eyes; Dry eye syndrome of both eyes 11/09/2020 Orders Only [facility] [address] Vale Walls NP 11/09/2020 11:15 AM EDT Radiology [facility] [address] [place] [address] Osteoporosis, unspecified osteoporosis type, unspecified pathological fracture presence 11/07/[address] [address] Ashanti Kumar MD E-prescribing Refill Request 10/14/2020 9:00 AM EDT Home Visit [address] [address] Vale Walls NP Advanced care planning/counseling discussion; Hypertension; Memory loss; Stage 2 chronic kidney disease; Vitamin B12 deficiency; Vitamin D Defiency 08/10/[address] [address] Ashanti Kumar MD E-prescribing Refill Request 07/14/[address] [address] Ashanti Kumar MD E-prescribing Refill Request 07/13/2020 Travel 07/13/2020 9:00 AM EDT Home Visit [address] [address] Vale Walls NP Hypertension; Stage 2 chronic kidney disease; Vitamin B12 deficiency; Vitamin D Defiency; Other hyperlipidemia; Memory loss; Age-related osteoporosis without current pathological fracture; Seizures (HCC); Arteriosclerosis of aorta; Right foot pain; Advanced care planning/counseling discussion 06/30/2020 Travel 06/30/2020 Telephone [facility] [address] [place] [phone] Ashanti Kumar MD Change of PCP 05/15/[address] [address] Ashanti Cornejo PA-C E-prescribing Refill Request 04/21/2020 Travel 04/19/[address] [phone] Evette Roa NP E-prescribing Refill Request 04/13/2020 Travel 04/13/2020 8:45 AM EST Office Visit [address] [address] Evette Roa NP Memory loss (Primary Dx); Hypertension 03/24/[address] [address] Andrew Davis MD E-prescribing Refill Request 03/24/[address] [address] Ashanti Kumar MD E-prescribing Refill Request 03/09/[address] [address] Ashanti Kumar MD BP Follow Up 03/09/2020 Travel 03/09/2020 10:30 AM EST Nurse Visit [address] [address] Tami Mas RN Hypertension, unspecified type (Primary Dx) 02/28/2020 Orders Only [address] [address] Ashanti Kumar MD Medications 02/28/2020 Orders Only [address] [phone] Ashanti Kumar MD 02/28/2020 Travel 02/28/2020 10:30 AM EST Nurse Visit [address] [address] Tami Mas, RN Hypertension, unspecified type (Primary Dx) 01/31/[address] [address] Ashanti Kumar MD BP Follow Up 01/31/2020 Orders Only [address] [address] Mirna Almaraz, DOUG 01/31/2020 Travel 01/31/2020 1:30 PM EST Nurse Visit [address] [address] Mirna Almaraz, DOUG Hypertension; Hypertension, unspecified type 01/03/[address] [address] Andrew Davis MD BP Follow Up 01/03/2020 Travel 01/03/2020 1:30 PM EDT Nurse Visit [address] [address] Tami Mas, RN Hypertension, unspecified type (Primary Dx) 01/01/[address] [address] Evette Roa, BETZAIDA Results 12/27/2019 Orders Only [facility] [address] [place] [address] Shreyas Orellana MD 12/27/2019 Orders Only [address] [address] Ashanti Kumar MD 12/20/[address] [address] Ashanti Kumar MD Labs/orders 12/20/2019 Travel 12/20/2019 11:15 AM EDT CPE - Comprehensive Physical Exam [address] [address] Ashanti Kumar MD Routine history and physical examination of adult (Primary Dx); Need for vaccination; Vitamin D Defiency; Vitamin B12 deficiency; Vitamin B12 deficiency; Other hyperlipidemia; Hypertension; Chronic Renal Insufficiency; Osteoporosis, unspecified osteoporosis type, unspecified pathological fracture presence; Memory loss 12/12/[address] [address] Ashanti Kumar MD E-prescribing Refill Request 10/03/[address] [address] Ashanti Kumar MD Covid 09/19/2019 Travel 09/17/[address] [address] Ashanti Kumar MD Refill Request 07/14/2019 Telephone [facility] [address] [place] [phone] Oskar Mckeon MD Information 07/14/2019 Telephone [facility] [address] [place] [address] Oskar Mckeon MD Information 07/11/2019 Orders Only [facility] MISCELLANEOUS [phone] Andrew Davis MD 07/11/2019 11:00 AM EDT Office Visit [facility] [address] [place] [phone] Andrew Davis MD SOB (shortness of breath) on exertion (Primary Dx) 07/10/2019 Travel 07/10/2019 Telephone [facility] [address] [place] [address] Shreyas Orellana MD Shortness of Breath; Fatigue 07/08/2019 Telephone [facility] [address] [place] [address] Shreyas Orellana MD Care Coordination Communication (Covid 19 ) 06/04/2019 Telephone [facility] [address] [place] [phone] Shreyas Orellana MD Labs/orders 06/03/2019 2:00 PM EDT Radiology [facility] [address] [place] [address] Pneumonia of left lower lobe due to infectious organism (HCC) 06/03/2019 1:00 PM EDT Office Visit [facility] [address] [place] [address] Shreyas Orellana MD Pneumonia of left lower lobe due to infectious organism (HCC) 06/03/2019 Travel 06/03/2019 Telephone [facility] [address] [place] [address] Shreyas Orellana MD Weakness ; Nausea ; Sore Throat; Headache ; Fever 11/01/2018 10:30 AM EDT Office Visit [address] [address] Carissa Barbosa, GONZÁLEZ Urinary tract infection without hematuria, site unspecified (Primary Dx) 08/29/2018 Refill [facility] [address] [place] [address] Shreyas Orellana MD Refill Request 08/16/2018 Telephone [facility] [address] [place] [address] Shreyas Orellana MD Results 08/08/2018 Orders Only [facility] [address] [place] [address] Shreyas Orellana MD 08/08/2018 1:00 PM EDT Office Visit [facility] [address] [place] [address] Shreyas Orellana MD Fatigue, unspecified type (Primary Dx) 08/06/2018 Telephone [facility] [address] [place] [address] Shreyas Orellana MD Dizziness 07/24/2018 2:00 PM EDT Minor Procedure/Test [facility] [address] [place] [phone] Sebastian Wasserman MD Torn earlobe, left, subsequent encounter (Primary Dx) 07/06/2018 1:45 PM EDT Consult (Initial) [facility] [address] [address] Sebastian Wasserman MD Torn earlobe, left, initial encounter (Primary Dx) 06/04/2018 Orders Only [facility] [address] [place] [address] Shreyas Orellana MD 06/04/2018 Telephone [facility] [address] [place] [address] Shreyas Orellana MD Ear Problem 10/10/2017 Refill [facility] [address] [place] [address] Shreyas Orellana MD E-prescribing Refill Request 07/07/[address] [address] Brie Woods RN Nausea 07/07/2017 9:45 AM EDT Radiology [address] [address] 07/07/2017 9:15 AM EDT Office Visit [address] [address] Lizy Burris NP Lower resp. tract infection (Primary Dx) 05/19/2017 Telephone [facility] [address] [place] [phone] Long Eden MD Cancellation 04/14/2017 9:40 AM EST Office Visit [facility] [address] [place] [address] Shreyas Orellana MD Bacterial infection (Primary Dx) 04/14/2017 Telephone [address] [place] [address] [place] [address] Shreyas Orellana MD Influenza; Eye Problem 01/21/2017 Refill [address] [place] [address] [place] [address] Melanie Dewey NP E-prescribing Refill Request 11/26/2016 Refill [address] [address] [place] [address] Shreyas Orellana MD E-prescribing Refill Request 10/06/2016 Telephone [address] [address] [place] [address] Shreyas Orellana MD Results 10/04/2016 Telephone [facility] [address] [place] [phone] Long Eden MD Endoscopy Request (lower And/or Upper) 10/04/2016 Orders Only [address] [place] [address] [place] [address] Shreyas Orellana MD 10/04/2016 1:20 PM EDT CPE - Comprehensive Physical Exam [address] [place] [address] [place] [address] Shreyas Orellana MD Routine history and physical examination of adult (Primary Dx); Need for vaccination; Hypertension; Vitamin D Defiency; Insomnia, unspecified type; Osteoporosis, unspecified osteoporosis type, unspecified pathological fracture presence 09/27/2016 Letter/Form [address] [place] [address] [place] [address] Shreyas Orellana MD 09/22/2016 Letter/Form [address] [address] [place] [address] Shreyas Orellana MD 09/09/2016 Refill [address] [address] [place] [address] Shreyas Orellana MD E-prescribing Refill Request 09/08/2016 Orders Only [place] [address] [place] [address] [place] [address] Shreyas Orellana MD 09/05/2016 Telephone [address] [address] [place] [address] Shreyas Orellana MD Results (potassium, Vit D ) 08/30/2016 Orders Only [place] [address] [place] [address] [place] [address] Shreyas Orellana MD 08/18/2016 Orders Only [place] [address] [place] [address] Shreyas Orellana MD 08/10/2016 Refill [address] [address] [place] [address] Shreyas Orellana MD E-prescribing Refill Request 05/12/2016 Refill [address] [address] [place] [address] Alison Francis MD E-prescribing Refill Request 04/29/2016 10:15 AM EST Office Visit [facility] [address] [place] [address] Dima Morton S, OD Encounter for ophthalmic examination and evaluation (Primary Dx); Cortical senile cataract, bilateral [H25.013]; Senile nuclear sclerosis, bilateral [H25.13]; Dermatochalasis of eyelids of both eyes [H02.833, H02.836]; Hypermetropia, bilateral [H52.03]; Astigmatism, regular, bilateral [H52.223]; Presbyopia 08/27/2015 11:15 AM EDT Office Visit [facility] [address] [place] [address] Malika Ventura NP Bladder infection (Primary Dx); Dysuria 07/13/2015 Orders Only [address] [place] [address] Alison Francis MD 07/08/2015 Orders Only [address] [address] [place] [address] Alison Francis MD 07/08/2015 Telephone [address] [address] [place] [address] Alison Francis MD Results (potassium) 07/07/2015 Orders Only [address] [address] [place] [address] Alison Francis MD Medications 07/07/2015 11:20 AM EDT CPE - Comprehensive Physical Exam [address] [address] [place] [address] Alison Francis MD Routine general medical examination at a health care facility (Primary Dx); Hypertension; Osteoporosis; Hyperlipidemia; LDL Goal < 130; Vitamin B12 deficiency; Chronic Renal Insufficiency 05/18/2015 9:15 AM EST Radiology [facility] X-Ray [address] [place] [phone] Right foot pain 05/18/2015 9:40 AM EST Consult (Initial) [facility] Podiatry [address] [place] [address] Gt Vega DPM Other secondary osteoarthritis of right foot (Primary Dx); Pain of right foot; Difficulty walking 05/17/2015 Refill July [place] [address] Alison Francis MD E-prescribing Refill Request 05/13/2015 Orders Only [address] [address] [place] [address] Alison Francis MD 05/13/2015 Orders Only July [address] [address] [place] [address] Alison Francis MD 05/12/2015 Orders Only [address] [address] [place] [address] Alison Francis MD 05/11/2015 Telephone [address] [address] [place] [address] Alison Francis MD Referral Request 02/24/2015 9:45 AM EST Office Visit [facility] [address] [place] [address] Sandi Santos NP Acute cystitis with hematuria (Primary Dx); Dysuria 02/24/2015 Telephone July [place] [address] Alison Francis MD UTI 12/16/2014 Orders Only [address] [address] [place] [address] Alison Francis MD 12/15/2014 Orders Only [address] [address] [place] [address] Alison Francis MD 12/15/2014 10:45 AM EDT Office Visit [address] [address] [place] [address] Alison Francis MD Hypertension (Primary Dx); Hyperlipidemia; LDL Goal < 130; Vitamin B12 deficiency; Ds DNA antibody positive; Chronic Renal Insufficiency; Right foot pain 11/10/2014 11:30 AM EDT Radiology [facility] Mammography [address] [place] [address] Other screening mammogram 11/03/2014 10:30 AM EDT Office Visit [facility] Optometry [address] [place] [address] Dima [place] S, OD Encounter for ophthalmic examination and evaluation (Primary Dx); Senile nuclear sclerosis, bilateral [366.16]; Hypermetropia, bilateral [367.0]; Presbyopia 07/21/2014 Refill July [place] [address] Alison Francis MD E-prescribing Refill Request 06/11/2014 1:15 PM EDT CPE - Comprehensive Physical Exam [address] [address] [place] [address] Alison Francis MD Routine general medical examination at a health care facility (Primary Dx); Chronic kidney disease, unspecified; Hypertension; Osteoporosis; Vitamin D Defiency; Hyperlipidemia; LDL Goal < 130; Back pain; Chronic Renal Insufficiency; Ds DNA antibody positive; Vitamin B12 deficiency 05/04/2014 Refill [address] [address] [place] [address] Alison Francis MD E-prescribing Refill Request 03/30/2014 Refill [address] [address] [place] [address] Alison Francis MD E-prescribing Refill Request 03/24/2014 Letter/Form [address] [address] [place] [address] Alison Francis MD 11/11/2013 Telephone [address] [address] [place] [address] Alison Francis MD Referral Request 09/16/2013 Refill July [address] [address] Alison Francis MD E-prescribing Refill Request 09/06/2013 Telephone [address] [address] [place] [address] Alison Francis MD Referral Request 08/28/2013 Orders Only [address] [address] [place] [address] Alison Francis MD 08/28/2013 11:45 AM EDT Radiology July X-Ray [facility] [place] [address] 08/28/2013 11:15 AM EDT Office Visit [address] [address] [place] [address] Alison Francis MD Right foot pain (Primary Dx) 08/28/2013 Telephone [address] [address] [place] [address] Alison Francis MD Swelling 03/12/2013 1:30 PM EST Office Visit [address] [address] Andie Hinkle MD Foot pain (Primary Dx) 03/12/2013 Telephone [address] [address] [place] [address] Alison Francis MD Swelling 03/08/2013 Refill July Internal [facility] [address] [place] [address] Alison Francis MD E-prescribing Refill Request 02/28/2013 Telephone [address] [address] [place] [address] Alison Francis MD UTI 02/21/2013 Telephone [address] [address] [place] [address] Alison Francis MD Cancellation 01/16/2013 Minor Procedure/Test NON FC SA [facility] [address] [place] [address] Ricco Viramontes, DPM 12/17/2012 Telephone [address] [address] [place] [address] Alison Francis MD Information 12/11/2012 Telephone [address] [address] [place] [address] Alison Francis MD Edema 12/11/2012 Telephone [facility] Rheumatology [address] [place] [address] Chalino Diaz MD Results 12/10/2012 Orders Only [facility] Rheumatology [address] [place] [address] Chalino Diaz MD 12/10/2012 1:00 PM EDT Consult (Initial) [facility] Rheumatology [address] [place] [address] Chalino Diaz MD Ds DNA antibody positive (Primary Dx) 12/05/2012 Orders Only [facility] Cardiology [address] [place] [address] Romana Simons Tech 12/04/2012 Orders Only July Internal [facility] [address] [place] [address] Alison Francis MD 12/04/2012 1:30 PM EDT Office Visit July [facility] [address] [place] [address] Alison Francis MD Arthralgia (Primary Dx); Hypertension; Hyperlipidemia; LDL Goal < 130; Vitamin B12 deficiency; CHRONIC RENAL INSUFFICIENCY xx0.39xx 12/04/2012 Telephone [address] [address] [place] [address] Alison Francis MD Foot Pain 12/03/2012 Telephone July [address] [address] Alison Francis MD Return Call (URGENT) 11/29/2012 Orders Only NON FC SA [facility] [address] [place] [address] Ricco Viramontes, DPM 09/12/2012 Refill July [address] [address] Shreyas Orellana MD E-prescribing Refill Request 08/23/2012 Telephone July [address] [address] Alison Francis MD Referral Request 08/10/2012 Refill July [address] [address] Alison Francis MD E-prescribing Refill Request (Hydrochlorothiazide) 07/26/[address] [address] Alison Francis MD Referral Request 03/30/2012 Letter/Form INTERNAL MED UNSPEC 02/01/2012 Refill July [address] [address] Alison Francis MD E-prescribing Refill Request (hydrochlorothiazide) 01/12/2012 Minor Procedure/Test PODIATRY UNSPECIFIED 12/28/2011 10:30 AM EDT Radiology [facility]. Mammography [address] [place] [address] Other screening mammogram 11/15/2011 Orders Only FC MISCELLANEOUS [phone] Alison Francis MD 11/03/2011 Minor Procedure/Test PODIATRY UNSPECIFIED Dermatophytosis of nail; Pain in limb 09/01/2011 Telephone July [address] [address] Alison Francis MD ER F/U (head injury) 08/29/2011 ER NON FC [address] [address], Emergency Rm Provider Dizziness and giddiness; Fall from slipping on wet surface 08/29/2011 Orders Only NON FC [address] [address] [facility], Unknown Provider 08/29/2011 Orders Only NON FC [address] [address] SamaniegoYobani L 08/29/2011 Telephone July [address] [address] Alison Francis MD Results 08/29/2011 Telephone July [address] [address] Alison Francis MD Dizziness 08/26/2011 Orders Only July [address] [address] Alison Francis MD 08/26/2011 3:45 PM EDT Office Visit [address] [address] Alison Francis MD CHRONIC RENAL INSUFFICIENCY xx0.39xx (Primary Dx); Hematoma; Acute neck pain 08/26/[address] [address] Alison Francis MD Walk In 08/22/2011 Orders Only [address] [address] Alison Francis MD 08/22/2011 Orders Only July [address] [address] Alison Francis MD 08/22/2011 9:00 AM EDT Office Visit [address] [address] Alison Francis MD UTI (urinary tract infection), uncomplicated (Primary Dx) 08/22/2011 Telephone July [address] [address] Alison Francis MD UTI 07/20/2011 Telephone [address] [address] [place] [address] Alison Francis MD Walk In (medication issues) 07/19/2011 Telephone July [address] [address] Alison Francis MD Information 07/19/2011 1:30 PM EDT Office Visit [address] [address] [place] [address] Alison Francis MD Hypertension (Primary Dx); Osteoporosis; Vitamin D Defiency; Hyperlipidemia; LDL Goal < 130; Back pain; Vitamin B12 deficiency 07/19/2011 Refill [address] [address] [place] [address] Alison Francis MD Medication Problem (lisinopril) 05/27/2011 Telephone [address] [address] [place] [address] Alison Francis MD Medication Problem (cost of BP med) 05/26/2011 Orders Only July [address] [address] Alison Francis MD 05/26/2011 10:30 AM EST Nurse Visit [address] [address] Estefani Escobar LPN Cobalamin deficiency (Primary Dx); Elevated blood pressure 05/10/2011 Refill [address] [address] [place] [address] Alison Francis MD E-prescribing Refill Request 05/09/2011 Letter/Form [address] [address] [place] [address] Alison Francis MD 04/20/2011 Letter/Form July [address] [address] Alison Francis MD 04/12/2011 Telephone [address] [address] [place] [address] Alison Francis MD Medication Problem ; Information 04/08/2011 Telephone [address] [address] [place] [address] Alison Francis MD Patient Questions ; Information 03/28/2011 Minor Procedure/Test PODIATRY UNSPECIFIED Dermatophytosis of nail; Pain in limb 03/09/2011 Refill [address] [address] [place] [address] Alison Francis MD Refill Request (diovan) 03/09/2011 Refill [address] [address] [place] [address] Alison Francis MD E-prescribing Refill Request 02/24/2011 10:00 AM EST CPE - Comprehensive Physical Exam [address] [address] [place] [address] Alison Francis MD Routine history and physical examination of adult (Primary Dx); Hypertension; Osteoporosis; Vitamin D Defiency; Hyperlipidemia; LDL Goal < 130; Vitamin B12 deficiency 01/04/2011 Minor Procedure/Test PODIATRY UNSPECIFIED Bursitis disorder; Lesion of plantar nerve 11/01/2010 Orders Only [address] [address] [place] [address] Alison Francis MD 11/01/2010 Refill [address] [address] [place] [address] Alison Francis MD Medication Problem (vitamin b 12 injection) 10/21/2010 10:30 AM EDT Consult (Initial) [facility] Rheumatology [address] [place] [address] Robert Fernandez MD Osteoporosis (Primary Dx) 09/28/2010 Office Visit PODIATRY UNSPECIFIED Acquired deformity of ankle and foot; Hallux valgus; Dermatophytosis of nail 08/26/2010 11:30 AM EDT Office Visit [address] [address] [place] [address] Alison Francis MD Hypertension (Primary Dx); Vitamin D Defiency; Osteoporosis; Back pain; Hyperlipidemia; LDL Goal < 130; Vitamin B12 deficiency 08/19/2010 10:30 AM EDT Nurse Visit July [place] [address] Estefani Escobar LPN Vitamin B12 deficiency (Primary Dx) 07/15/2010 Office Visit PODIATRY UNSPECIFIED Acquired deformity of ankle and foot; Hallux valgus; Dermatophytosis of nail 06/10/2010 Telephone July [place] [address] Alison Francis MD Referral Request 05/20/2010 10:00 AM EST Nurse Visit July [place] [address] Mahin Rodríguez RN Vitamin B12 deficiency (Primary Dx) 04/22/2010 1:00 PM EST Radiology [address] Mammography [address] [place] [address] Mammographic microcalcification; Other screening mammogram 04/05/2010 11:15 AM EST Office Visit [facility] Optometry [address] [place] [address] BrololiskyDima S, OD Macular puckering of retina (Primary Dx); Senile nuclear cataract 03/23/2010 Refill July [place] [address] Alison Francis MD E-prescribing Refill Request 03/20/2010 Refill July [place] [address] Alison Francis MD E-prescribing Refill Request (diovan) 02/25/2010 10:30 AM EST CPE - Comprehensive Physical Exam July [place] [address] Alison Francis MD Routine general medical examination at a health care facility (Primary Dx); Hypertension; Osteoporosis; Vitamin D Defiency; Hyperlipidemia; LDL Goal < 130; Back pain; Idiopathic peripheral neuropathy (HCC); Need for prophylactic vaccination and inoculation against influenza; Mammographic microcalcification 02/15/2010 Orders Only LAB UNSPECIFIED 02/15/[address] [address] [place] [address] Alison Francis MD 02/01/2010 Orders Only [address] [address] [place] [address] Alison Francis MD 01/25/2010 Refill [address] [address] [place] [address] Alison Francis MD E-prescribing Refill Request (DIOVAN HCT) 10/16/2009 Refill [address] [address] [place] [address] Alison Francis MD Refill Request 07/14/2009 Refill [address] [address] [place] [address] Deloris Longoria MA Refill Request 07/07/2009 Letter/Form [address] [address] [place] [address] Alison Francis MD 03/30/2009 10:30 AM EST Office Visit [facility] Optometry [address] [place] [address] Dima [place] S, OD Macular puckering of retina; Nuclear cataract, nonsenile 03/26/2009 Telephone [address] [address] [place] [address] Alison Francis MD Appointment (3 mo ret) 02/23/2009 Orders Only [address] [address] [place] [address] Alison Francis MD 02/23/2009 1:15 PM EST Office Visit [address] [address] [place] [address] Alison Francis MD Hypertension (Primary Dx); Vitamin D Defiency; Hyperlipidemia; LDL Goal < 130; Osteoporosis; Restless Leg Syndrome; Back Pain 02/18/2009 Telephone [address] [address] [place] [address] Alison Francis MD No Show 02/17/2009 Orders Only [address] [address] [place] [address] Alison Francis MD 11/18/2008 10:15 AM EDT Office Visit [address] [address] [place] [address] Alison Francis MD Hypertension (Primary Dx); Myalgia and Myositis; Hyperlipidemia; LDL Goal < 130; Back Pain 10/14/2008 Refill [address] [address] [place] [address] Deloris Longoria MA Refill Request (diovan) 09/15/2008 Telephone [address] [address] [place] [address] Alison Francis MD Letter/form Request 09/15/2008 3:30 PM EDT Office Visit [address] [address] [place] [address] Alison Francis MD Anxiety, Stress, and Tension (Primary Dx) 09/12/2008 Orders Only [address] [address] [place] [address] Alison Francis MD 09/12/2008 Telephone [address] [address] [place] [address] Estefani Escobar LPN Appointment 09/12/2008 Telephone [address] [address] [place] [address] Estefani Escobar LPN Results (digital Mammogram 08/29/08) 09/11/2008 9:00 AM EDT Office Visit [facility] Podiatry [address] [place] [address] Paco Uribe DPM Onychomycosis; Pain in Limb; Other Symptoms Referable to [facility]; Other Synovitis and Tenosynovitis 08/28/2008 Orders Only [address] [address] [place] [address] Alison Francis MD 08/15/2008 Telephone [address] [address] [place] [address] Estefani Escobar LPN Medication Problem (Requip); Information 08/15/2008 Orders Only July [place] [address] Alison Francis MD 08/15/2008 9:30 AM EDT CPE - Comprehensive Physical Exam July [place] [address] Alison Francis MD Routine General Medical Examination at a Health Care Facility (Primary Dx); Breast Cancer Screening; Vitamin D Defiency; Hyperlipidemia; LDL Goal < 130; Hypertension; Osteoporosis; Back Pain; Leg Cramps 07/31/2008 9:15 AM EDT Consult (Initial) [facility] Podiatry [address] [place] [address] Paco Uribe DPM Other Synovitis and Tenosynovitis (Primary Dx) 07/03/2008 Orders Only [facility] Podiatry [address] [place] [address] Paco Uribe DPM 07/03/2008 9:00 AM EDT Consult (Initial) [facility] Podiatry [address] [place] [address] Paco Uribe DPM Onychomycosis; Pain in Limb; Other Synovitis and Tenosynovitis 04/11/2008 Refill July [place] [address] Jill Shrestha MA Refill Request (hctz) 04/04/2008 Orders Only July [place] [address] Alison Francis MD 04/04/2008 Refill July [place] [address] Maria C Roa MA Erroneous encounter-disregard 04/04/2008 10:45 AM EST Office Visit July [place] [address] Alison Francis MD Hypertension (Primary Dx); Fungal Dermatitis 12/27/2007 11:15 AM EDT Office Visit [facility] [address] [place] [address] Alison Francis MD Hypertension (Primary Dx) 11/27/2007 9:15 AM EDT Office Visit [facility] [address] [place] [address] Alison Francis MD Hypertension (Primary Dx); Back Pain; Hyperlipidemia; LDL Goal < 130; Malaise and Fatigue 10/24/2007 Consult (Initial) [address] [address] [facility], Unknown Provider 08/31/2007 Nurse Visit [address] [address] Displacement of Lumbar Intervertebral Disc without Myelopathy 08/31/2007 Consult (Initial) [address] [address] [facility], Unknown Provider 08/24/2007 Orders Only [address] [address] Alison Francis MD 08/07/2007 Abstract [facility] [address] [place] [address] Alison Francis MD 07/31/2007 8:30 AM EDT CPE - Comprehensive Physical Exam [address] [address] Alison Francis MD ROUTINE GENERAL MEDICAL EXAMINATION AT A HEALTH CARE FACILITY (Primary Dx); Hypertension; Hyperlipidemia; LDL Goal < 130; Vitamin D Defiency; BACK PAIN; Osteoporosis; BREAST CANCER SCREENING; INSOMNIA NEC; IMPACTED CERUMEN 07/20/2007 Consult (Initial) [address] [address] [facility], Unknown Provider 07/06/2007 Telephone [facility] Internal Medicine [address] [place] [address] Angie Pepe RN VNA Communication 07/03/[address] [address] Luz, Estefani, SEAT MENDER Patient Questions 06/25/2007 Telephone [facility] Internal Medicine [address] [place], [place] [phone] Regan Darling MD FYI (patient admitted / surgery done) 06/25/2007 Telephone [facility] Internal Medicine [address] [place] [address] Regan Darling MD Other 06/23/2007 Orders Only LAB UNSPECIFIED 06/23/2007 Minor Procedure/Test [address], Unknown Provider 06/22/2007 Surgery/[place] [address] Displacement of Lumbar Intervertebral Disc without Myelopathy 06/22/2007 Hospital/Inpatient [address], Unknown Provider 06/22/2007 Surgery/Major Procedure [address], Unknown Provider 06/22/2007 Consult (Initial) [address], Unknown Provider 06/18/2007 Telephone [facility] Internal Medicine [address] [place] [address] Angie Pepe, DOUG Appointment 06/14/2007 Telephone [facility] Internal Medicine [address] [place] [address] Patricia Donald RN Other (/ ms contin dose ) 06/12/2007 Orders Only [facility] Internal Medicine [address] [place] [address] Regan Darling MD 06/11/2007 Minor Procedure/Test REHABILITATION UNSPEC Nonallopathic Lesion of Lumbar Region; Lumbosacral Neuritis; Congenital Spondylolysis, Lumbosacral Region 06/11/2007 Telephone [facility] Internal Medicine [address] [place] [address] Terri Nur, DOUG Results 06/08/2007 Orders Only [facility] Internal Medicine [address] [place] [address] Regan Darling MD 06/08/2007 9:45 AM EDT Office Visit [facility] Internal Medicine [address] [place] [phone] Regan Darling MD SCIATICA (Primary Dx); DEHYDRATION; FATIGUE; NAUSEA; ACUTE KIDNEY INSUFFICIENCY 06/07/2007 Refill [facility] Internal Medicine [address] [place] [address] Angie Pepe, wall mirror department supervisor Problem 06/07/2007 Refill [facility] Internal Medicine [address] [place] [address] Angie Pepe, RN Refill Request 06/06/2007 Letter/Form 300 [facility] Resonance Imaging [address] [place] [address] 06/06/2007 Orders Only [facility] Internal Medicine [address] [place] [address] Regan Darling MD 06/05/2007 Letter/Form NON FC SA NON FC [facility] Provider, Unknown 06/04/2007 Minor Procedure/Test REHABILITATION UNSPEC Nonallopathic Lesion of Lumbar Region; Lumbosacral Neuritis; Congenital Spondylolysis, Lumbosacral Region 06/01/2007 Refill [facility] Internal Medicine [address] [place] [phone] Terri Nur, DOUG Refill Request 05/30/2007 Minor Procedure/Test REHABILITATION UNSPEC Nonallopathic Lesion of Lumbar Region; Lumbosacral Neuritis; Congenital Spondylolysis, Lumbosacral Region 05/28/2007 Minor Procedure/Test REHABILITATION UNSPEC Nonallopathic Lesion of Lumbar Region; Lumbosacral Neuritis; Congenital Spondylolysis, Lumbosacral Region 05/25/2007 1:00 PM EST Office Visit [facility] Internal Medicine [address] [place] [address] Regan Darling MD Sciatica (Primary Dx) 05/23/2007 Minor Procedure/Test REHABILITATION UNSPEC Nonallopathic Lesion of Lumbar Region; Lumbosacral Neuritis; Congenital Spondylolysis, Lumbosacral Region 05/23/2007 Telephone [facility] Internal Medicine [address] [place] [address] Regan Darling MD Other 05/21/2007 Minor Procedure/Test REHABILITATION UNSPEC Nonallopathic Lesion of Lumbar Region; Lumbosacral Neuritis; Congenital Spondylolysis, Lumbosacral Region 05/18/2007 Minor Procedure/Test REHABILITATION UNSPEC Nonallopathic Lesion of Lumbar Region; Lumbosacral Neuritis; Congenital Spondylolysis, Lumbosacral Region 05/17/2007 Telephone [facility] Internal Medicine [address] [place] [phone] Terri Nur RN Back Pain 05/15/2007 Minor Procedure/Test REHABILITATION UNSPEC Nonallopathic Lesion of Lumbar Region; Lumbosacral Neuritis; Congenital Spondylolysis, Lumbosacral Region 05/15/2007 Telephone [facility] Internal [address] [address] Regan Darling MD Referral Request 05/14/2007 Office Visit REHABILITATION UNSPEC Nonallopathic Lesion of Lumbar Region; Lumbosacral Neuritis; Congenital Spondylolysis, Lumbosacral Region 05/08/2007 9:45 AM EST Office Visit [facility] Internal Medicine [address] [place] [phone] Regan Darling MD Hypertension (Primary Dx); Sciatica; Vitamin D Defiency; Osteoporosis; Hyperlipidemia; LDL Goal < 130; Hyperlipidemia 04/27/2007 Abstract [facility] [address] [place] [phone] Regan Darling MD 04/09/2007 Orders Only [facility] Internal Medicine [address] [place] [phone] Regan Darling MD 04/05/2007 10:00 AM EST CPE - Comprehensive Physical Exam [facility] Internal Medicine [address] [place] [phone] Regan Darling MD ROUTINE GENERAL MEDICAL EXAMINATION AT A HEALTH CARE FACILITY (Primary Dx); BREAST CANCER SCREENING; Hypertension; Osteoporosis; SCREENING FOR OTHER AND UNSPECIFIED DEFICIENCY ANEMIA; SCREENING FOR LIPOID DISORDERS; SCREEN-ENDOC/NUT/MET NEC 02/12/2007 Refill [facility] Internal Medicine [address] [place], [place] [phone] Regan Darling MD Refill Request 12/15/2006 Refill [facility] Internal Medicine [address] [place], [place] [phone] Angie Pepe RN Refill Request 12/04/2006 Office Visit [facility] Optometry [address] [place] [phone] Jese Kessler, OD Examination of Eyes and Vision; Hypermetropia; Presbyopia; Refraction Disorder; Senile Nuclear Sclerosis 04/07/2006 Minor Procedure/Test Special Screening fo r Malignant Neoplasms, Colon 04/07/2006 Minor Procedure/Test [facility] [address] [place] [address] Eleonora Taylor MD Special Screening for Malignant Neoplasms, Colon 11/28/2005 Office Visit [facility] Internal Medicine [address] [place] [address] Regan Darling MD Hypertension; Cough 11/28/2005 Telephone [facility] Internal [address] [phone] Loni Machado LPN Cough 11/02/2005 Office Visit [facility] Internal Medicine [address] [place] [address] Corrie Kuo MD Hypertension 09/26/2005 Telephone [facility] Medicine [address] [place] [address] Regan Darling MD 09/26/2005 Office Visit [facility] Medicine [address] [place] [address] Corrie Kuo MD Hypertension; Elevated blood pressure reading without diagnosis of hypertension 09/26/2005 11:00 AM EDT Orders Only [facility] Internal Medicine [address] [place] [phone] Corrie Kuo MD 09/26/2005 Orders Only [facility] Internal Medicine [address] [place] [phone] Regan Darling MD 09/26/2005 Orders Only [facility] Medicine [address] [place] [phone] Regan Darling MD 08/26/2005 Office Visit [facility] Internal Medicine [address] [place] [phone] Regan Darling MD Hypertension; Insomnia NEC; Osteoporosis; Backache 08/09/2005 Letter/Form [facility] [address] [phone] Regan Darling MD 08/08/2005 Telephone [facility] [address] [phone] Regan Darling MD 08/03/2005 Minor Procedure/Test REHABILITATION [...] Dislocation, First Cervical Vertebra 06/23/2005 Office Visit [facility] Internal Medicine [address] [place] [phone] Regan Darling MD Hypertension; Osteoporosis 06/22/2005 Minor [...] Dislocation, First Cervical Vertebra 06/17/2005 Orders Only [facility] Medicine [address] [place] [phone] Regan Darling MD 2005 Minor Procedure/Test REHABILITATION [...] Vertebra 06/07/2005 CPE - Comprehensive Physical Exam [facility] Internal Medicine [address] [place] [phone] Regan Darling MD Routine General Medical Examination [...] Regan Reynolds W Imaging 10/25/2004 Office Visit [facility] Optometry [address] [place] [address] Jese Kessler, OD Examination of eyes and vision; Refraction disorder 06/07/2002 Telephone [facility] [address] [place] [phone] Chalino Lino MD 02/06/2002 Office Visit [facility] Optometry [address] [place] [phone] Robetr Ferreira, OD Examination of eyes and vision; Refraction disorder; Cataract 04/11/2001 Telephone [facility] [address] [place] [phone] Chalino Lino MD 12/03/1999 Telephone [facility] [address] [place] [address] hCalino Lino MD 12/03/1999 Office Visit [address] [phone] Long Smith MD Acute pharyngitis; Acute upper respiratory infection 12/01/1999 Telephone [facility] [address] [place] [phone] Chalino Lino MD 10/15/1999 Office Visit [facility] Optometry [address] [place] [address] Robert Ferreira, OD 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 Orders Only [facility] [address] [place] [address] Chalino Lino MD 04/02/1999 Office Visit [facility] [address] [place] [phone] Chalino Lino MD Pneumonia due to organism; Pneumonia, organism unspecified(486) 03/16/1999 Office Visit [facility] [address] [place] [address] Chalino Lino MD Bronchitis; Cough 02/22/1999 Orders Only NON [facility] [address] [address] [facility], Unknown Provider 09/08/1998 Orders Only [facility] [address] [place] [address] Chalino Lino MD 08/27/1998 Orders Only [facility] 07/01/1998 CPE - Comprehensive Physical Exam [facility] [address] [place] [phone] Chalino Lino MD Routine general medical examination at a health care facility 05/02/1994 Office Visit NON [facility] NON [facility] SaraAlicja reilly Refraction disorder 04/18/1994 Office Visit [facility] [address] [place] [phone] Robert Andre MD Dyschromia 09/29/1993 Orders Only [facility] [address] [place] [address] Chalino Lino MD 07/28/1993 Office Visit [facility] [address] [place] [address] Chalino Lino MD Symptoms involving abdomen and pelvis 07/02/1993 Office Visit [facility] [address] [place] [address] Chalino Lino MD Symptoms involving abdomen and pelvis 07/01/1993 Office Visit [facility] Internal Medicine [address] [place] [address] Ameena Little PA Symptoms involving abdomen and [...] tablet 3 03/11/20 24 026 Active Calcitonin, Treichlers, (MIACALCIN) 200 UNIT/ACT nasal spray Administer one [...] every night. 90 tablet 04/12/19 25 Active Diclofenac Sodium 1 % Gel Apply 2 [...] May use IV hydration. Form uploaded through [employer] Direct to [employer]. HCP: Form started, Still needs 2 witness signatures, and will collect at next visit. Children Deborah and Felipe. Mild cognitive impairment 12/20/2019 Overview (05/17/2023): Stable. SLUMS done 11/01/22/30. MME 27/30. MMSE normal at 30/30 in November 2020. Pt had formal neurology [...] to OTC. 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 DXA MODEL: [employer] A in fast scan mode RISK FACTORS: [...] osteoporotic fracture 25% and hip fracture 15% us Vale Wilson Coujustino [employer] IMG DEXA IMAGING Final Resu lt * [...] Advanced degenerative spondylosis with no acute findings. us Rocio CLAUDIO IMG XRAY NO CONTRAST ORDERA BLES Final Result * (ABNORMAL) CULTURE, URINE, ROUTINE (01/18/2024 9:14 AM EDT) Only the most recent of6 resultswithin the time period is included. Bacteria culture (Urine) SEE NOTE(A) [facility] Comment: ??CULTURE, URINE, ROUTINE ??Micro Number: ?[id number] ??Test Status: ? Final ??Specimen Source: ?? [...] 10:46 PM EDT Narrative Resulting Agency Comment [id number] us Jennifer Robles MD LABORATORY Final Result [facility] [address] [place] [address] * (ABNORMAL) CLINITEK URINALYSIS (01/18/2024 9:10 AM [...] (Urine) Small(A) Negative CLINIT EK ANALYZER Specific [place] (Urine) 1.020 1.005 - 1.030 CLINITEK ANALYZER Ketones (Urine) Negative Negative CLIN ITEK ANALYZER Bilirubin (Urine) Negative Negative [facility]INITEK ANALYZER Glucose (Urine) Negative Negative CLIN ITEK ANALYZER 01/18/2024 9:10 AM EDT 01/18/2024 9:10 AM EDT Narrative CLINITEK ANALYZER - 01/18/2024 9:10 AM EDT #:[id number] Location:[facility] us Jennifer Robles MD LAB SAME DAY RESULT Edited R esult - Final CLINITEK ANALYZER * EKG-USE ONLY IN [facility]/OCC [...] 2:54 PM EDT 01/05/2023 9:32 AM EDT Chalino Ye MD CARDIOVASCULAR-WITH INBSKT RT G Final Result MUSE EKG SYSTEM * CBC [...] RESULT Final Res ult [facility] [address] [place] [address] * COMPREHENSIVE METABOLIC PANEL WITH GFR (01/04/2023 [...] [facility] BUN/Creatinine Ratio SEE NOTE: 6 - 22 (calc) [facility] Comment: ?? Not Reported: [...] more precise needs for GFR calculation. us Chailno Ye MD LABORATORY Final Result [facility] [address] [place] [address] * (ABNORMAL) URINALYSIS, MICROSCOPIC (01/04/2023 2:31 PM [...] 2:36 PM EDT Narrative Resulting Agency Comment [id number] us Chalino Ye MD LAB SAME DAY RESULT Final Res ult Performing Organization Address [facility] Co de Phone Number [facility] [address] [place] [address] * (ABNORMAL) VITAMIN B12 (CYANOCOBALAMIN), SERUM (11/14/2022 10:50 AM EDT) Only the most recent of6 resultswithin the time period is included. Vitamin B12 (Cobalamins) 1197(H) 200 - 1100 pg/mL [facility] 11/14/2022 10:5 0 AM EDT 11/14/2022 10:58 PM EDT Narrative Resulting Agency Comment [id number] us Vale Walls [employer] LABORATORY Final Resul t Performing Organization Address [facility] Co de Phone Number [facility] [address] [place] [address] * (ABNORMAL) VITAMIN D, 25-HYDROXY, TOTAL, IMMUNOASSAY [...] D, (D2,D3), LC/MS/MS is recommended: order code [id number] (patients >2yrs). See Note 1 Note 1 For additional information, please refer to http://education.[employer].iPowow/faq/PAU596 (This link is being provided for informational/ educational purposes only.) 11/14/2022 10:5 0 AM EDT 11/14/2022 10:58 PM EDT Narrative Resulting Agency Comment [id number] Vale Walls [employer] LABORATORY Final Resul t [facility] [address] [place] [address] * UNSPECIFIED MAJOR PROCEDURE (05/05/2022) Kavon Haskins [...] 8 AM EST 04/12/2022 1:35 PM EST us Gail S Sithole [employer]OVER CARDIOVASCULAR-WITH INBSKT R TG Final Result MUSE [...] needs for GFR calculation. Resulting Agency Comment [id number] us Gail S Sithole [employer] LABORATORY Final Result Performing Organization Address City/[facility]/ZIP Co de Phone Number [facility] [address] [place] [address] * OPHTHALMOLOGICAL TEST/PROCEDURE, UNSPECIFIED (02/28/2022) Result [facility] Kavon Haskins MD PROCEDURES Final Result * OPHTHALMOLOGICAL TEST/PROCEDURE, UNSPECIFIED (12/24/2021) Result [facility] Kavon Haskins MD PROCEDURES Final Result * URIC ACID, SERUM (11/09/2020 10:53 AM EDT) Pathologist [facility] Uric Acid Serum 5.0 2.5 - 7.0 mg/dL [facility] Comment:Therapeutic target f or gout patients: <6.0 mg/dL 11/09/2020 10:5 3 AM EDT 11/09/2020 12:10 PM EDT Narrative Resulting Agency Comment [id number] Vale Walls [employer] LABORATORY Final Resul t Performing Organization Address [facility] Co de Phone Number [facility] [address] [place] [address] * THYROID STIMULATING HORMONE (TSH) WITH FREE T4 REFLEX, SERUM (11/09/2020 10:53 AM EDT) Pathologist [facility] TSH 1.80 0.40 - 4.50 mIU/L [facility] 11/09/2020 10:5 3 AM EDT 11/09/2020 12:10 PM EDT Narrative Resulting Agency Comment [id number] Vale Walls [employer] LABORATORY Final Resul t Performing Organization Address City/[facility] Co de Phone Number [facility] [address] [place] [address] * (ABNORMAL) SARS COV 2 RNA(COVID 19), QUALITATIVE NAAT (07/11/2019 11:25 AM EDT) Pathologist [facility] SARS-COV-2 RNA DETECTED( A) NOT DETECTED [facility] Comment: A Detected result is considered a positive test result for COVID-19. ??This indicates that RNA from SARS-CoV-2 (formerly 2019-nCoV) was detected, and the patient is infected with the virus and presumed to be contagious. If requested by public health authority, specimen will be sent for additional testing. Due to the current public health emergency, [facility] is receiving a high volume of samples [...] the FDA authorized labeling available on the [employer] website: www.PinchPoint/Covid19. 07/11/2019 11:2 5 AM EDT 07/11/2019 4:43 PM EDT Narrative Resulting Agency Comment [id number] Andrew Davis MD LABORATORY Final Result [facility] [address] [place] [address] * XRAY CHEST, 2 VIEWS, PA & [...] (specimen) 11/01/2018 10:55 AM EDT Carissa Barbosa PA [facility] Final Result * THYROID CASCADING REFLEX (08/08/2018 1:24 PM EDT) Only the most recent of2 resultswithin the time period is included. TSH 2.94 0.40 - 4.50 mIU/L [facility] 08/08/2018 1:24 PM EDT 08/08/2018 7:50 PM EDT Narrative Resulting Agency Comment [id number] Shreyas Orellana MD LABORATORY Final Result Performing Organization Address City/[facility] Co de Phone Number [facility] [address] [place] [address] * (ABNORMAL) LIPID PANEL WITH REFLEX TO [...] 2:54 PM EDT Narrative Resulting Agency Comment [id number] us Shreyas Orellana MD LABORATORY Final Result Performing Organization Address [facility] Co de Phone Number [facility] [address] [place] [address] * POTASSIUM, SERUM (07/13/2015 10:51 AM EDT) Potassium 4.6 3.5 - 5.3 mmol/L [facility] Comment:{POTASSIUM {[id number]) 07/13/2015 10:5 1 AM EDT 07/13/2015 5:29 PM EDT Narrative Resulting Agency Comment [id number] Alison Francis MD LAB SAME DAY RESULT Final Resul t Performing Organization Address City/[facility] Co de Phone Number [facility] [address] [place] [address] * URINALYSIS, DIP ONLY ( SITE STAT ONLY) (07/07/2015 12:22 PM EDT) Only the most recent of2 resultswithin the time period is included. COLOR (URINE) YELLOW [facility] (CLIA# [id number]) APPEARANCE (URINE) CLEAR [facility] (CLIA# [id number]) SPECIFIC GRAVITY 1.010 1.001 - 1.035 [facility] (CLIA# [id number]) PH (URINE) 7.5 5.0 - 8.0 [facility] (CLIA# [id number]) PROTEIN (URINE) NEGATIVE Neg [facility] (CLIA# [id number]) GLUCOSE (URINE) NEGATIVE Neg [facility] (CLIA# [id number]) Ketones (Urine) NEGATIVE Neg [facility] (CLIA# [id number]) BILIRUBIN (URINE) NEGATIVE Neg [facility] (CLIA# [id number]) BLOOD (URINE) NEGATIVE Neg [facility] (CLIA# [id number]) WBC (URINE) NEGATIVE Neg [facility] (CLIA# [id number]) NITRITE (URINE) NEGATIVE Neg [facility] (CLIA# [id number]) Urine specimen obtained by clean catch procedure (specimen) 07/07/2015 12:22 PM EDT us Alison Francis MD LAB SAME DAY RESULT Final Resul t [facility] (CLIA# [id number]) [address] [place] [address] * XRAY FOOT COMPLETE MIN 3 VWS [...] is degenerative change in several of the [place] IP joints. In addition to moderately severe hallux valgus there is valgus deformity of toes 2 through 4 and there are hammertoe deformities as well. ??There are subchondral cystic changes in several of the metatarsal heads. There is no developing erosion. There is no fracture seen. Tiny posterior calcaneal spur. CONCLUSION:: 1. Progressive hypertrophic degenerative changeover operator the dorsum of the foot at [...] is degenerative change in several of the [place] IP joints. In addition to moderately severe hallux valgus there is valgus deformity of toes 2 through 4 and there are hammertoe deformities as well. There are subchondral cystic changes in several of the metatarsal heads. There is no developing erosion. There is no fracture seen. Tiny posterior calcaneal spur. CONCLUSION:: 1. 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 2. Stable postoperative changes and degenerative changes involving many of the rays in the forefoot. us Alison Francis MD IMG XRAY NO CONTRAST ORDERABLES Final Result * URINALYSIS, COMPLETE INCLUDES DIPSTICK AND MICROSCOPIC (12/15/2014 11:14 AM EDT) Only the most recent of2 resultswithin the time period is included. Color (Urine) YELLOW YELLOW [facility] Comment:{COLOR {[id number]) Appearance (Urine) CLEAR CLEAR [facility] Comment:{APPEARANCE {[id number]) Specific gravity (Urine) 1.014 1.001 - 1.035 [facility] Comment:{SPECIFIC GRAVITY {[id number]) pH (Urine) 6.5 5.0 - 8.0 [facility] Comment:{PH {[id number]) Glucose (Urine) NEGATIVE NEGATIVE [facility] Comment:{GLUCOSE {[id number]) Bilirubin (Urine) NEGATIVE NEGATIVE [facility] Comment:{BILIRUBIN {[id number]) Ketones (Urine) NEGATIVE NEGATIVE [facility] Comment:{KETONES {[id number]) Hemoglobin (Urine) NEGATIVE NEGATIVE [facility] Comment:{OCCULT BLOOD {[id number]) Protein (Urine) NEGATIVE NEGATIVE [facility] Comment:{PROTEIN {[id number]) Nitrite (Urine) NEGATIVE NEGATIVE [facility] Comment:{NITRITE {[id number]) Leukocyte esterase (Urine) NEGATIVE NEGATIVE [facility] Comment:{LEUKOCYTE ESTERASE {[id number]) WBC (Urine) NONE SEEN < OR = 5 /HPF [facility] Comment:{WBC {[id number]) RBC (Urine Sed) NONE SEEN < OR = 2 /HPF [facility] Comment:{RBC {[id number]) Epithelial cells.squamous (Urine sed) 0-5 < OR = 5 /HPF [facility] Comment:{SQUAMOUS EPITHELIAL CELLS {[id number]) Bacteria (Urine) NONE SEEN NONE SEEN /HPF [facility] Comment:{BACTERIA {[id number]) Hyaline casts (Urine sed) NONE SEEN NONE SEEN /LPF [facility] Comment:{HYALINE CAST {[id number]) Service comment 01 SEE NOTE [facility] Comment: {COMMENTS {[id number]) The above test was performed; ??evaluate the urinalysis results with caution. ??The urine specimen was received without a preservative. ??Deterioration of formed elements and/or alteration of chemical constituents may have occurred. 12/15/2014 11:1 4 AM EDT 12/15/2014 10:17 PM EDT Narrative Resulting Agency Comment [id number] Alison Francis MD LAB SAME DAY RESULT Final Resul t [facility] [address] [place] [address] * MAMMOGRAM SCREENING , BILATERAL FC (11/10/2014 [...] TO PATIENT: In a letter Procedure Note Jaon Blackburn MD - 11/11/2014 EXAMINATION: SCREENING MAMMOGRAM [...] RESULTS COMMUNICATED TO PATIENT: In a letter us Alison Francis MD IMG MAMMO ORDERABLES Final [...] No fracture or destructive lesion is seen. Alison Francis MD IMG XRAY NO CONTRAST ORDERABLES Final Result * FOOT 3+ RT (01/17/2013 10:41 AM EDT) RADIOLOGY REPORT [facility] Department of Radiology [address] [place] [address], [address] Name: RENY ROSE : 36 Date of Service: 01/16/131657 Acct Number: [id number] Order Number: ??[id number] ?Location: [facility] Report Number: [id number] ?Service: [facility]/ Requesting Physician: Ricco Viramontes Category: RADIOLOGY ??[facility] Exam: FOOT 3 VIEWS ?? Right [...] phalanges. Interpreting Resident: Date/Time of Dictation: 01/17/13 104 Approved Electronically By/Date: Johnny Gray 01/17/13 1041 [facility] Department of Radiology [address] [place] [address], [address] ? [phone] ? [facility] Anatomical Region Laterality Modality Other 01/17/2013 10:4 1 AM EDT Narrative 01/17/2013 10:42 AM EDT Reason for Study/History: Department of Radiology TEST(S) PROCESSED BY [facility] XRAY us Ricco Viramontes DPM [facility] Final Resul t * PATHOLOGY REPORT (01/16/2013 7:49 PM EDT) PATHOLOGY REPORT Surgical Pathology Report Specimen Number: [id number] Final Diagnosis Diagnosis: ??1. ??BONE, RIGHT FOOT [...] ?discrete areas of softening are noted grossly. ??Director Telemetry ?sections are submitted in cassette 1 following [...] areas of softening are identified ?grossly. ??A branch service representative section of each is submitted in cassette 2 ?following decalcification. [facility] 01/16/2013 7:49 PM EDT 01/16/2013 7:49 PM EDT us Ricco LYONM LABORATORY Final Resul t Performing Organization Address City/[facility]/ZIP Co de Phone Number [facility] [address] [place] [address] * SM/AIRPLANE REFUELER ANTIBODY (12/04/2012 2:14 PM EDT) Wilson extractable nuclear Ab+Ribonucleopr otein extractable nuclear Ab <1.0 NEG <1.0 NEG AI [facility] Comment:{SM/AIRPLANE REFUELER ANTIBODY {[id number]) 12/04/2012 2:14 PM EDT 12/04/2012 11:10 PM EDT Narrative Resulting Agency Comment [id number] us Alison Francis MD LABORATORY Final Result [facility] [address] [place] [address] * (ABNORMAL) DNA (DS) ANTIBODY (12/04/2012 2:14 PM EDT) Dna (DS) Antibody 14(H) IU/mL [facility] Comment: {DNA (DS) ANTIBODY {[id number]) ? IU/mL ? Interpretation ? < or = 4 ?Negative ? 5-9 ? Indeterminate ? > or = 10 ?? Positive 12/04/2012 2:14 PM EDT 12/04/2012 11:10 PM EDT Narrative Resulting Agency Comment [id number] us Alison Francis MD LABORATORY Final Result Performing Organization Address [facility] de Phone Number [facility] [address] [place] [address] * ZEENAT SCREEN IFA W/REFLEX TO TITER/PATTERN IFA (12/04/2012 2:14 PM EDT) ZEENAT IFA NEGATIVE NEGATIVE [facility] Comment:{ZEENAT SCREEN, IFA {[id number]) 12/04/2012 2:14 PM EDT 12/04/2012 11:10 PM EDT Narrative Resulting Agency Comment [id number] Alison Francis MD LABORATORY Final Result Performing Organization Address [facility] [[email or web address]] de Phone Number [facility] [address] [place] [address] * SED RATE (ESR) (11/29/2012 8:19 AM EDT) ESR (ERYTHROCYTE SEDIMENTATION RATE) 26 0 - 40 mm/hr [facility] 11/29/2012 8:19 AM EDT 11/29/2012 8:19 AM EDT Ricco Quevedo Wander DPM LABORATORY Final Resul t Performing Organization Address [facility] [[email or web address]] de Phone Number [facility] [address] [place] [address] * URIC ACID (11/29/2012 8:19 AM EDT) URIC ACID, SERUM 6.0 2.5 - 7.1 mg/dL [facility] 11/29/2012 8:19 AM EDT 11/29/2012 8:19 AM EDT Ricco Quevedo Wander LYONM LABORATORY Final Resul t Performing Organization Address [facility] Phone Number [facility] [address] [place] [address] * CT CERV. SPINE W/O CONTRAST (08/29/2011 3:56 PM EDT) RADIOLOGY REPORT [facility] Department of Radiology [address] [place] [address], [address] Name: RENY ROSE : 36 Date of Service: 08/29/11 1527 Acct Number: [id number] Order Number: ??[id number] ?Location: [facility] Report Number: [id number] ?Service: REG ER/ Requesting Physician: Yobani Samaniego Category: COMPUTED TOMOGRAPHY ??[facility] Exam: CERVICAL SPINE W/O CONTRAST ?? [...] or subluxation. ??Degenerative disease as described above. operations vice president: Long Sanchez M.D. Interpreting Resident: Long Sanchez Date/Time of Dictation: 08/29/11 1556 Approved Electronically By/Date: Long Rucker 08/29/11 1616 [facility] Department of Radiology [address] [place] [address], [address] ? [phone] ? [facility] Anatomical Region Laterality Modality Other 08/29/2011 3:56 PM EDT Narrative 08/29/2011 4:17 PM EDT Reason for Study/History: Department of Radiology TEST(S) PROCESSED BY [facility] XRAY Yobani Samaniego [facility] Final Result * CT FACIAL W/O CONTRAST (08/29/2011 3:43 PM EDT) RADIOLOGY REPORT [facility] Department of Radiology [address] [place] [address], [address] Name: RENY ROSE : 36 Date of Service: 08/29/11 1527 Acct Number: [id number] Order Number: ??[id number] ?[facility] [facility] Report Number: [id number] ?Service: REG ER/ Requesting Physician: Yobani Samaniego Category: COMPUTED TOMOGRAPHY ??[facility] Exam: FACIAL W/O CON ?? Signs/Symptoms: [...] facial bones appear normal. Impression: No fracture BOILER ASSISTANT OPERATOR: Long Sanchez M.D. Interpreting Resident: Long Sanchez Date/Time of Dictation: 08/29/11 1543 Approved Electronically By/Date: Long Rucker 08/29/11 1619 [facility] Department of Radiology [address] [place] [address], [address] ? [phone] ? [facility] Anatomical Region Laterality Modality Other 08/29/2011 3:43 PM EDT Narrative 08/29/2011 4:20 PM EDT Reason for Study/History: Department of Radiology TEST(S) PROCESSED BY [facility] XRAY us Yobani Samaniego IMAGING-[facility] Final Result * CT BRAIN W/O CONTRAST (08/29/2011 3:36 PM EDT) RADIOLOGY REPORT [facility] Department of Radiology [address] [place] [address], [address] Name: RENY ROSE : 36 Date of Service: 08/29/11 1524 Acct Number: [id number] Order Number: ??[id number] ?Location: [facility] Report Number: [id number] ?Service: REG ER/ Requesting Physician: Hossein Will Category: COMPUTED TOMOGRAPHY ??[facility] Exam: BRAIN W/O CONTRAST ?? Signs/Symptoms: [...] Approved Electronically By/Date: Long Rucker 08/29/11 1536 [facility] Department of Radiology [address] [place] [address], [address] ? [phone] ? [facility] Anatomical Region Laterality Modality Other 08/29/2011 3:36 PM EDT Narrative 08/29/2011 3:37 PM EDT Reason for Study/History: Department of Radiology TEST(S) PROCESSED BY [facility] XRAY us Unknown Provider [facility] IMAGING-[facility] Final Resul t * CBC 5 PART DIFF (08/29/2011 12:23 PM EDT) WHITE BLOOD COUNT 8.7 3.9 - 11.0 x1000/uL [facility] RBC 4.67 3.70 - 5.10 mil/ul [facility] Hemoglobin 13.3 11.5 - 15.0 g/dL [facility] HCT (HEMATOCRIT) 39.1 34.0 - 44.0 % [facility] MCV 84 80 - 100 fL [facility] MCH 29 27 - 33 pg [facility] MCHC 34 31 - 36 g/dL [facility] RDW 12.5 11.4 - 14.4 % [facility] PLATELETS 224 150 - 450 x1000/uL [facility] MPV 9.2 7.0 - 11.0 fL [facility] NEUTROPHILS 61 42 - 76 % [facility] LYMPHOCYTE % 31 14 - 46 % [facility] MONOCYTE % 5 4 - 13 % [facility] EOSINOPHIL % 2 0 - 7 % [facility] BASOPHIL % 1 0 - 3 % [facility] NEUTROPHILS (#) 5.3 1.8 - 7.0 x1000/uL [facility] LYMPHOCYTES # 2.7 0.7 - 4.5 x1000/uL [facility] MONOCYTES # 0.4 0.1 - 0.8 x1000/uL [facility] EOSINOPHILS # 0.2 0.0 - 0.4 x1000/uL [facility] BASOPHILS # 0.1 0.0 - 0.2 x1000/uL [facility] 08/29/2011 12:2 3 PM EDT 08/29/2011 12:23 PM EDT Yobani Samaniego LABORATORY Final Result Performing Organization Address [facility] Co de Phone Number [facility] [address] [place] [address] * PTT(PART THROM TIME) (08/29/2011 12:23 PM EDT) PTT (PARTIAL THROMBOPLASTIN TIME) 26.8 sec [facility] Comment: Normal: ? 25.0-35.0 Therapeutic: ??50.0-90.0 08/29/2011 12:2 3 PM EDT 08/29/2011 12:23 PM EDT Yobani Samaniego LABORATORY Final Result Performing Organization Address [facility] Co de Phone Number [facility] [address] [place] [address] * (ABNORMAL) PROTHROMBIN TIME (08/29/2011 12:23 PM EDT) PT (PROTHROMBIN TIME) 10.4 9.1 - 12.0 sec [facility] INR 1.0(L) 2.0 - 3.5 [facility] Comment: INR reference interval applies to patients on anticoagulant therapy. ??Suggested INR therapeutic range for oral anticoagulant therapy:(Stabilized anticoagulated patients) ?Routine Therapy: ? 2.0-3.0 ?Recurrent Myocardial Infarction or ?Mechanical Prosthetic Valves: ?2.5-3.5 08/29/2011 12:2 3 PM EDT 08/29/2011 12:23 PM EDT Yobani Samaniego LABORATORY Final Result [facility] [address] [place] [address] * URINALYSIS,C&S IF INDICATED (08/29/2011 12:23 PM EDT) Pathologist [facility] COLOR (URINE) YELLOW [facility] APPEARANCE (URINE) CLEAR [facility] GLUCOSE (URINE) NEGATIVE Negative mg/dL [facility] BILIRUBIN (URINE) NEGATIVE Negative [facility] Ketones (Urine) NEGATIVE Negative mg/dL [facility] SPECIFIC GRAVITY 1.015 1.005 - 1.030 [facility] BLOOD (URINE) NEGATIVE Negative [facility] PH (URINE) 7.5 5.0 - 8.0 [facility] PROTEIN (URINE) NEGATIVE Neg-Trace mg/dL [facility] UROBILINOGEN 0.2 0.2 - 1.0 mg/dL [facility] NITRITE (URINE) NEGATIVE Negative [facility] WBC (URINE) NEGATIVE Negative [facility] Microscopic (Urine) [facility] Comment:Microscopic not jere cated Culture Indication NO [facility] 08/29/2011 12:2 3 PM EDT 08/29/2011 12:23 PM EDT Yobani Samaniego LABORATORY Final Result Performing Organization Address [facility] Co de Phone Number [facility] [address] [place] [address] * (ABNORMAL) BASIC METABOLIC PANEL (08/29/2011 12:23 PM EDT) Only the most recent of2 resultswithin the time period is included. Glucose 101(H) Fastin-99 mg/dL [facility] BUN 19 5 - 26 mg/dL [facility] CREATININE 0.73 0.5 - 1.5 mg/dL [facility] BUN/Creatinine Ratio 26 8 - 27 [facility] GLOM FILT RATE, EST 81.7 >59 mL/min [facility] IF -HELENE N 94.7 >59 mL/min [facility] SODIUM 137 134 - 144 mEq/L [facility] POTASSIUM 3.1(L) 3.5 - 5.5 mEq/L [facility] CHLORIDE 101 96 - 109 mEq/L [facility] CARBON DIOXIDE 25 20 - 32 mEq/L [facility] ANION GAP 11.0 8 - 12 [facility] CALCIUM 9.3 8.6 - 10.2 mg/dL [facility] 08/29/2011 12:2 3 PM EDT 08/29/2011 12:23 PM EDT Yobani Samaniego LABORATORY Final Result Performing Organization Address [facility]/ZIP Co de Phone Number [facility] [address] [place] [address] * (ABNORMAL) BASIC METABOLIC PANEL W/GLOMERULAR FILTRATION RATE (EGFR) (05/26/2011 8:47 AM EST) Only the most recent of3 resultswithin the time period is included. Glucose 99 65 - 99 mg/dL [facility] Comment: {GLUCOSE {[id number]) ? Fasting reference interval Urea Nitrogen Blood (BUN) 31(H) 7 - 25 mg/dL [facility] Comment:{UREA NITROGEN (BUN) {[id number]) Creatinine 1.33(H) 0.60 - 0.93 mg/dL [facility] Comment: {CREATININE {[id number]) For patients >49 years of age, the reference limit for Creatinine is approximately 13% higher for people identified as -[place]. GFR 40(L) > OR = 60 mL/min/1. 73m2 [facility] Comment:{eGFR NON-AFR. AMERI CAN {[id number]) GFR () 46(L) > OR = 60 mL/min/1. 73m2 [facility] Comment:{eGFR AMERIC AN {[id number]) BUN/Creatinine Ratio 23(H) 6 - 22 (calc) [facility] Comment:{BUN/CREATININE RATI O {[id number]) Sodium 140 135 - 146 mmol/L [facility] Comment:{SODIUM {[id number]) Potassium 3.9 3.5 - 5.3 mmol/L [facility] Comment:{POTASSIUM {[id number]) Chloride 107 98 - 110 mmol/L [facility] Comment:{CHLORIDE {[id number]) Carbon dioxide 21 21 - 33 mmol/L [facility] Comment:{CARBON DIOXIDE {[id number]) Calcium 9.9 8.6 - 10.4 mg/dL [facility] Comment:{CALCIUM {[id number]) 05/26/2011 8:47 AM EST 05/26/2011 12:22 [...] needs for GFR calculation. Resulting Agency Comment [id number] Alison Francis MD LABORATORY Final Result Performing Organization Address City/[facility] Co de Phone Number [facility] [address] [place] [address] * (ABNORMAL) LIPID PANEL + CARDIAC RISK WITH REFLEX TO LDL DIRECT (05/26/2011 8:47 AM EST) Only the most recent of3 resultswithin the time period is included. Cholesterol 233(H) 125 - 200 mg/dL [facility] Comment:{CHOLESTEROL, TOTAL {[id number]) HDL Cholesterol 59 > OR = 46 mg/dL [facility] Comment:{HDL CHOLESTEROL {[id number]) Triglyceride 113 <150 mg/dL [facility] Comment:{TRIGLYCERIDES {[id number]) LDL Cholesterol 151(H) <130 mg/dL (calc) [facility] Comment: {LDL-CHOLESTEROL {[id number]) Desirable range <100 mg/dL for patients with CHD or diabetes and <70 mg/dL for diabetic patients with known heart disease. CHOL/HDL Ratio 3.9 < OR = 5.0 (calc) [facility] Comment:{CHOL/HDLC RATIO {[id number]) 05/26/2011 8:47 AM EST 05/26/2011 12:22 PM EST Narrative Resulting Agency Comment [id number] Alison Francis MD LABORATORY Final Result Performing Organization Address [facility] Co de Phone Number [facility] [address] [place] [address] * CBC 5 PART DIFF (05/26/2011 8:47 AM EST) Only the most recent of7 resultswithin the time period is included. WBC 6.6 3.8 - 10.8 Thousand/u L [facility] Comment:{WHITE BLOOD CELL CO UNT {[id number]) RBC 4.88 3.80 - 5.10 Million/uL [facility] Comment:{RED BLOOD CELL COUN T {[id number]) Hemoglobin 14.5 11.7 - 15.5 g/dL [facility] Comment:{HEMOGLOBIN {[id number]) Hematocrit 43.0 35.0 - 45.0 % [facility] Comment:{HEMATOCRIT {[id number]) MCV 88.0 80.0 - 100.0 fL [facility] Comment:{MCV {[id number]) MCH 29.6 27.0 - 33.0 pg [facility] Comment:{MCH {[id number]) MCHC 33.7 32.0 - 36.0 g/dL [facility] Comment:{MCHC {[id number]) RDW 13.4 11.0 - 15.0 % [facility] Comment:{RDW {[id number]) PLT 236 140 - 400 Thousand/u L [facility] Comment:{PLATELET COUNT {[id number]) MPV 8.7 7.5 - 11.5 fL [facility] Comment:{MPV {[id number]) Neutrophils # 4382 1500 - 7800 cells/uL [facility] Comment:{ABSOLUTE NEUTROPHIL S {[id number]) Lymphocytes # 1604 850 - 3900 cells/uL [facility] Comment:{ABSOLUTE LYMPHOCYTE S {[id number]) Monocytes # 436 200 - 950 cells/uL [facility] Comment:{ABSOLUTE MONOCYTES {[id number]) Eosinophils # 132 15 - 500 cells/uL [facility] Comment:{ABSOLUTE EOSINOPHIL S {[id number]) Basophils # 46 0 - 200 cells/uL [facility] Comment:{ABSOLUTE BASOPHILS {[id number]) Neutrophils % 66.4 % [facility] Comment:{NEUTROPHILS {[id number]) Lymphocytes % 24.3 % [facility] Comment:{LYMPHOCYTES {[id number]) Monocytes % 6.6 % [facility] Comment:{MONOCYTES {[id number]) Eosinophils % 2.0 % [facility] Comment:{EOSINOPHILS {[id number]) Basophils % 0.7 % [facility] Comment:{BASOPHILS {[id number]) 05/26/2011 8:47 AM EST 05/26/2011 12:22 PM EST Narrative Resulting Agency Comment [id number] us Alison Francis MD LAB SAME DAY RESULT Final Resul t Performing Organization Address [facility] [[email or web address]] de Phone Number [facility] [address] [place] [address] * ASPARTATE AMINOTRANSFERASE (AST), SERUM (05/26/2011 8:47 AM EST) Only the most recent of3 resultswithin the time period is included. AST (SGOT) 26 10 - 35 U/L [facility] Comment:{AST {[id number]) 05/26/2011 8:47 AM EST 05/26/2011 12:22 PM EST Narrative Resulting Agency Comment [id number] us Alison Francis MD LAB SAME DAY RESULT Final Resul t Performing Organization Address [facility] de Phone Number [facility] [address] [place] [address] * TSH (THYROTROPIN) (05/26/2011 8:47 AM EST) Only the most recent of4 resultswithin the time period is included. TSH 2.04 0.40 - 4.50 mIU/L [facility] Comment:{TSH {[id number]) 05/26/2011 8:47 AM EST 05/26/2011 12:22 PM EST Narrative Resulting Agency Comment [id number] us Alison Francis MD LABORATORY Final Result Performing Organization Address [facility] [[email or web address]] de Phone Number [facility] [address] [place] [address] * T4, FREE THYROXINE (05/26/2011 8:47 AM EST) Only the most recent of4 resultswithin the time period is included. FT4 1.1 0.8 - 1.8 ng/dL [facility] Comment:{T4, FREE {[id number]) 05/26/2011 8:47 AM EST 05/26/2011 12:22 PM EST Narrative Resulting Agency Comment [id number] us Alison Francis MD LABORATORY Final Result [facility] [address] [place] [address] * (ABNORMAL) VITAMIN D, 25-HYDROXY, LC/MS/MS (05/26/2011 8:47 AM EST) Only the most recent of4 resultswithin the time period is included. Vitamin D, 25-OH, Total 26(L) 30 - 100 ng/mL [facility] Comment:{VITAMIN D, 25 OH, T OTAL {[id number]) Vitamin D, D3 (Cholecalciferol ) 26 ng/mL [facility] Comment:{VITAMIN D, 25 OH, D 3 {[id number]) Vitamin D, 25-OH, D2 (Calciferol) <4 ng/mL [facility] Comment: {VITAMIN D, 25 OH, D2 {[id number]) ? 25-OHD3 indicates both endogenous production and [...] 12:22 PM EST Narrative Resulting Agency Comment [id number] Alison Francis MD LABORATORY Final Result Performing Organization Address City/[facility]/ZIP Co de Phone Number [facility] [address] [place] [address] * CONSULT RHEUMATOLOGY FC (10/22/2010) Alison Francis MD REFERRAL Final Result * ALANINE AMINOTRANSFERASE (ALT), SERUM (02/15/2010) Only the most recent of2 resultswithin the time period is included. ALT (SGPT) 20 6 - 40 U/L [facility] 02/15/2010 02/15/2010 6:0 8 PM EST us Alison Francis MD LAB SAME DAY RESULT Final Resul t Performing Organization Address [facility] [[email or web address]] de Phone Number [facility] [address] [place] [address] * VITAMIN B12 (02/15/2010) Only the most recent of2 resultswithin the time period is included. Pathologist [facility] VITB12 352 200 - 1100 PG/ML [facility] 02/15/2010 02/15/2010 6:0 8 PM EST us Alison Francis MD LABORATORY Final Result Performing Organization Address [facility] [[email or web address]] de Phone Number [facility] [address] [place] [address] * SCREENING DIGITAL MAMMOGRAPHY BILATERAL (08/29/2008 9:14 AM EDT) [facility] RADIOLOGY REPORT Digital Bilateral Screening Mammograms: This [...] routine TEST(S) PROCESSED BY [facility] AT [facility] us Alison Francis MD GENERAL IMAGING- [...] RESULT Final Resul t * MAGNESIUM (08/15/2008) MAGNESIUM 2.0 1.5 - [...] RIGHT FOOT DROP ??AP/LAT/OBL TEST(S) PROCESSED BY [facility] AT [facility] Paco Uribe DPM GENERAL IMAGING- OTHER Fin al Result * SCREENING MAMMOGRAPHY BILATERAL (TWO VIEW FILM STUDY OF EACH BREAST) (08/24/2007 1:33 PM EDT) RADIOLOGY REPORT Bilateral Screening Mammograms: This mammogram was interpreted with the assistance of the [employer] computer-aided detection (CAD) system. Some fibroglandular density [...] radiologist. BI-RADS Category 1: Negative *#A N#* [facility] (CLIA# [id number]) LETTER SENT A mammogram letter type A N was [facility] (CLIA# [id number]) Anatomical Region Laterality Modality Other 08/24/2007 1:33 PM EDT Narrative 08/29/2007 10:51 AM EDT Reason for Study/History: routine -- overdue TEST(S) PROCESSED BY [facility] AT [facility] Alison Francis MD GENERAL IMAGING- OTHER Final Re sult * CYTOLOGY/PATHOLOGY UNSPECIFIED (06/23/2007) Narrative Transcriptions [facility], Unknown Provider - 07/10/2007 12:00 AM EDT us Unknown Provider [facility] PATHOLOGY Final Resu lt * UNSPECIFIED MAJOR PROCEDURE (06/22/2007) Narrative Transcriptions [facility], Unknown Provider - 07/09/2007 12:00 AM EDT us Unknown Provider [facility] PROCEDURES Final Resu lt * MRI LUMBAR SPINE (06/06/2007 2:04 AM EDT) RADIOLOGY REPORT EXAM: MRI of the lumbar spine. INDICATION: Sciatica with right foot drop. TECHNIQUE: Routine protocol. 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 The chief yeoman image also shows several ??areas of increased T2 signal within both kidneys. These are likely to represent multiple cysts however, correlation with renal ultrasound would be suggested. Coronal chief yeoman image shows mild dextroscoliosis in the mid [...] both kidneys. Consider correlation with renal ultrasound. [facility] (CLIA# [id number]) Anatomical Region Laterality Modality Other 06/06/2007 2:04 AM EDT Narrative 06/08/2007 4:11 PM EDT Reason for Study/History: SCIATICA PAIN TO LEG WITH RT FOOT DROP TEST(S) PROCESSED BY [facility] AT [facility] Regan Darling MD GENERAL IMAGING- OTHER Final [...] Mild sclerosis of the left sacroiliac joint. [facility] (CLIA# [id number]) Anatomical Region Laterality Modality Other 05/25/2007 12:2 9 PM EST Narrative 05/26/2007 10:29 AM EST Reason for Study/History: SCIATICA TEST(S) PROCESSED BY [facility] AT [facility] Regan Darling MD GENERAL IMAGING- OTHER Final Result * (ABNORMAL) CBC W/O DIFFERENTIAL (04/09/2007) WHITE BLOOD COUNT 5.4 3.8 - 10.8 THOUS/UL [facility] (CLIA# [id number]) RBC 5.18(H) 3.80 - 5.10 MIL/UL [facility] (CLIA# [id number]) Hemoglobin 15.2 11.7 - 15.5 G/DL [facility] (CLIA# [id number]) HCT (HEMATOCRIT) 44.4 35.0 - 45.0 % [facility] (CLIA# [id number]) MCV 85.8 80.0 - 100.0 FL [facility] (CLIA# [id number]) MCH 29.4 27.0 - 33.0 PG [facility] (CLIA# [id number]) MCHC 34.3 32.0 - 36.0 G/DL [facility] (CLIA# [id number]) PLATELETS 236 140 - 400 THOUS/UL [facility] (CLIA# [id number]) RDW 13.0 11.0 - 15.0 % [facility] (CLIA# [id number]) MPV 7.9 7.5 - 11.5 FL [facility] (CLIA# [id number]) 04/09/2007 04/09/2007 3:2 4 PM EST Regan Darling MD LABORATORY Final Result Performing Organization Address City/[facility]/ZIP Co de Phone Number [facility] (CLIA# [id number]) [address] [place] [address] * THYROID CASCADE (04/09/2007) Pathologist [facility] TSH, THYROTROPIN 1.38 0.40 - 4.50 UIU/ML [facility] (CLIA# [id number]) 04/09/2007 04/09/2007 3:2 4 PM EST Regan Darling MD LABORATORY Final Result [facility] (CLIA# [id number]) [address] [place] [address] * (ABNORMAL) URINALYSIS, COMPLETE (DIP & MICRO) (04/09/2007) COLOR (URINE) YELLOW YELLOW [facility] (CLIA# [id number]) APPEARANCE (URINE) TURBID(A) CLEAR [facility] (CLIA# [id number]) SPECIFIC GRAVITY 1.028 1.001 - 1.035 [facility] (CLIA# [id number]) PH (URINE) 5.5 5.0 - 8.0 [facility] (CLIA# [id number]) PROTEIN (URINE) NEG NEG [facility] (CLIA# [id number]) GLUCOSE (URINE) NEG NEG [facility] (CLIA# [id number]) Ketones (Urine) NEG NEG [facility] (CLIA# [id number]) BILIRUBIN (URINE) NEG NEG [facility] (CLIA# [id number]) BLOOD (URINE) NEG NEG [facility] (CLIA# [id number]) WBC (URINE) NEG NEG [facility] (CLIA# [id number]) NITRITE (URINE) NEG NEG [facility] (CLIA# [id number]) WBC (URINE) 0-4 0-4/HPF [facility] (CLIA# [id number]) RBC (Urine Sed) 0 0-3/HPF [facility] (CLIA# [id number]) EPITHELIAL CELLS.SQUAMOUS (URINE SED) 0 0-5/HPF [facility] (CLIA# [id number]) EPITHELIAL CELLS.TRANSITIO NAL (URINE SED) 0 0-5/HPF [facility] (CLIA# [id number]) EPITHELIAL CELLS.RENAL (URINE SED) 0 0-3/HPF [facility] (CLIA# [id number]) BACTERIA (URINE) NONE SEEN NONE SEEN [facility] (CLIA# [id number]) 04/09/2007 04/09/2007 3:2 4 PM EST Regan Darling MD LAB SAME DAY RESULT Final Re sult [facility] (CLIA# [id number]) [address] [place] [address] * GASTROENTEROLOGY TEST/PROCEDURE, UNSPECIFIED (04/07/2006 12:00 AM EST) Narrative Transcriptions Eleonora Taylor MD - 08/27/2008 12:00 AM EDT Eleonora Taylor MD PROCEDURES Final Result * (ABNORMAL) CHEMISTRY PANEL CP-7 (09/26/2005 10:00 AM EDT) CALCIUM 9.9 8.5 - 10.4 MG/DL [facility] (CLIA# [id number]) BUN 24 7 - 25 MG/DL [facility] (CLIA# [id number]) CREATININE 0.8 0.5 - 1.2 MG/DL [facility] (CLIA# [id number]) BUN/Creatinine Ratio 30(H) 6 - 25 [facility] (CLIA# [id number]) Glucose 92 65 - 99 MG/DL [facility] (CLIA# [id number]) SODIUM 140 135 - 146 MMOL/L [facility] (CLIA# [id number]) POTASSIUM 3.7 3.5 - 5.3 MMOL/L [facility] (CLIA# [id number]) CHLORIDE 100 98 - 110 MMOL/L [facility] (CLIA# [id number]) CARBON DIOXIDE 25 21 - 33 MMOL/L [facility] (CLIA# [id number]) 09/26/2005 10:0 0 AM EDT 09/26/2005 7:47 PM EDT Regan Darling MD LABORATORY Final Result Performing Organization Address City/[facility]/ZIP Co de Phone Number [facility] (CLIA# [id number]) [address] [place] [address] * TSH, THYROTROPIN (06/17/2005 9:16 AM EST) TSH, THYROTROPIN 1.4 0.3 - 5.5 UIU/ML [facility] (CLIA# [id number]) 06/17/2005 9:16 AM EST 06/17/2005 9:16 AM EST Narrative [facility] (CLIA# [id number]) - 06/17/2005 9:16 AM EST FASTING Regan Darling MD LABORATORY Final Result [facility] (CLIA# [id number]) [address] [place] [address] * (ABNORMAL) URINALYSIS (06/17/2005 9:16 AM EST) Only the most recent of2 resultswithin the time period is included. Pathologist [facility] COLOR (URINE) YELLOW YELLOW- [facility] (CLIA# [id number]) APPEARANCE (URINE) CLEAR CLEAR- [facility] (CLIA# [id number]) SPECIFIC GRAVITY 1.026 [facility] (CLIA# [id number]) Comment:Reference Range: 1.0 01-1.035 PH (URINE) 6.0 5.0 - 8.0 [facility] (CLIA# [id number]) PROTEIN (URINE) NEG NEG- [facility] (CLIA# [id number]) GLUCOSE (URINE) NEG NEG- [facility] (CLIA# [id number]) Ketones (Urine) TRACE(A) NEG- [facility] (CLIA# [id number]) BILIRUBIN (URINE) NEG NEG- [facility] (CLIA# [id number]) BLOOD (URINE) NEG NEG- [facility] (CLIA# [id number]) WBC (URINE) TRACE(A) NEG- [facility] (CLIA# [id number]) NITRITE (URINE) NEG NEG- [facility] (CLIA# [id number]) WBC (URINE) 6-10(A) 0-4/HPF [facility] (CLIA# [id number]) RBC (Urine Sed) 0 0-3/HPF FC [facility] (CLIA# [id number]) EPITHELIAL CELLS.SQUAMOUS (URINE SED) 0 0-5/HPF FC [facility] (CLIA# [id number]) EPITHELIAL CELLS.TRANSITION AL (URINE SED) 0 0-5/HPF [facility] (CLIA# [id number]) EPITHELIAL CELLS.RENAL (URINE SED) 0 0-3/HPF [facility] (CLIA# [id number]) BACTERIA (URINE) NONE SEEN NONE SEEN- [facility] (CLIA# [id number]) Microscopic Other (Urine) FEW MUCOUS(A) [facility] (CLIA# [id number]) 06/17/2005 9:16 AM EST 06/17/2005 9:16 AM EST Narrative [facility] (CLIA# [id number]) - 06/17/2005 9:16 AM EST FASTING us Regan Darling MD LABORATORY Final Result [facility] (CLIA# [id number]) [address] [place] [address] * (ABNORMAL) CARDIAC RISK/LIPID PROFILE I (06/17/2005 9:16 AM EST) CHOLESTEROL, TOTAL 211(H) 100 - 199 MG/DL [facility] (CLIA# [id number]) TRIGLYCERIDES 168(H) 30 - 149 MG/DL [facility] (CLIA# [id number]) HDL-CHOLESTEROL 48 40 - 77 MG/DL [facility] (CLIA# [id number]) LDL-CHOLESTEROL 129 62 - 130 MG/DL [facility] (CLIA# [id number]) Comment: RISK CATEGORY: ??LDL-CHOLESTEROL GOAL CHD AND CHD RISK EQUIVALENTS: ??<100 MULTIPLE (2+) FACTORS: ??<130 ZERO TO ONE RISK FACTOR: ??<160 CHD RELATIVE RISK RATIO (TOTAL/HDL) 4.40 [facility] (CLIA# [id number]) Comment:(1.0 X AVERAGE) 06/17/2005 9:16 AM EST 06/17/2005 9:16 AM EST Narrative [facility] (CLIA# [id number]) - 06/17/2005 9:16 AM EST FASTING us Regan Darling MD LABORATORY Final Result [facility] (CLIA# [id number]) [address] [place] [address] * DUAL ENERGY DEXA BONE DENSITY ONE/MORE [...] significant change in the left hip. [facility] (CLIA# [id number]) Anatomical Region Laterality Modality Other 06/08/2005 9:13 AM EST Narrative 06/13/2005 4:05 PM EST Reason for Study/History: ROUTINE Test(s) processed by : [employer] [facility]LA us Regan Kronlund MD GENERAL IMAGING- OTHER Final Result * [...] interpreting radiologist.. BI-RADS Category 1: Negative. [facility] (CLIA# [id number]) LETTER SENT A mammogram letter type A N was printed on 06/13/2005 [facility] (CLIA# [id number]) Anatomical Region Laterality Modality Other 06/03/2005 2:19 PM EST Narrative 06/06/2005 2:17 PM EST Reason for Study/History: routine -- overdue Test(s) processed by : [employer] [facility] us Regan Darling MD GENERAL IMAGING- OTHER Final [...] disease and no evidence of acute fracture. [facility] (CLIA# [id number]) Anatomical Region Laterality Modality Other 06/03/2005 1:44 PM EST Narrative 06/07/2005 1:43 PM EST Reason for Study/History: chiro - cervical -dorsal -lumbopelvic-ac [place] lbp /neck & mid back stiffness Test(s) processed by : [facility] IMAGING- OTHER Final R esult * XRAY SPINE THORACIC AP & LAT (06/03/2005 1:43 PM EST) RADIOLOGY REPORT Two views of the thoracic spine demonstrate mild degenerative changes characterized by multilevel anterior and lateral osteophytes seen at the midthoracic spine with no evidence of acute fracture, dislocation or spondylolisthesis . There is mild scoliosis. Impression: Scoliosis and mild degenerative changes. [facility] (CLIA# [id number]) Anatomical Region Laterality Modality Other 06/03/2005 1:43 PM EST Narrative 06/07/2005 1:42 PM EST Reason for Study/History: chiro - cervical -dorsal -lumbopelvic-ac [place] lbp /neck & mid back stiffness Test(s) processed by : [facility]- OTHER Final R esult * XRAY SPINE [...] evidence of acute fracture. [facility] (CLIA# [id number]) Anatomical Region Laterality Modality Other 06/03/2005 1:43 PM EST Narrative 06/07/2005 1:43 PM EST Reason for Study/History: chiro - cervical -dorsal -lumbopelvic-ac [place] lbp /neck & mid back stiffness Test(s) processed by : [employer] [facility] IMAGING- OTHER Final R esult * STREP SCREEN CULTURE (GROUP A) (12/03/1999 2:17 PM EDT) REPORT STATUS: Final [facility] (CLIA# [id number]) STREPTOCOCCUS PYOGENES (GROUP A) CULTURE [facility] (CLIA# [id number]) Comment:No Group A Strep iso lated 12/03/1999 2:17 PM EDT 12/05/1999 7:28 AM EDT us Long Smith MD LABORATORY Final Resul t [facility] (CLIA# [id number]) [address] [place] [address] * XRAY CHEST 2 VIEWS PA & LAT (05/13/1999 10:00 AM EST) Only the most recent of3 resultswithin the time period is included. Pathologist [facility] RADIOLOGY REPORT Chest: The heart is mildly enlarged but there is no failure. The lungs are clear and sulci are sharp. Findings described on 03/16/99 and 04/02/99 have improved. [facility] (CLIA# [id number]) Anatomical Region Laterality Modality Other 05/13/1999 10:0 0 AM EST Narrative 05/20/1999 10:29 AM EST Reason for Study/History: FOLLOW-UP PNEUMONIA Test(s) processed by : [employer] WES2 us Chalino Lino MD GENERAL IMAGING- OTHER Fin al Result * (ABNORMAL) CBC 5 PART DIFF (02/22/1999 2:51 AM EST) Only the most recent of4 resultswithin the time period is included. SMEAR REVIEW [facility] (CLIA# [id number]) WHITE BLOOD COUNT 7.0 3.8 - 10.1 K/mm3 [facility] (CLIA# [id number]) RBC 5.19(H) 3.90 - 5.10 M/mm3 [facility] (CLIA# [id number]) Hemoglobin 15.5 12.0 - 15.6 g/dl [facility] (CLIA# [id number]) HCT (HEMATOCRIT) 46.2(H) 35.0 - 45.0 % [facility] (CLIA# [id number]) MCV 89.1 81.0 - 96.0 um3 [facility] (CLIA# [id number]) MCHC 33.6 32.0 - 36.0 g/dL [facility] (CLIA# [id number]) RDW 11.9 11.4 - 14.4 % [facility] (CLIA# [id number]) PLATELETS 235 150 - 450 K/mm3 [facility] (CLIA# [id number]) MPV 7.1(L) 7.4 - 10.4 f/L [facility] (CLIA# [id number]) NEUTROPHIL % 84.6(H) 42 - 76 % [facility] (CLIA# [id number]) LYMPHOCYTE % 12.7(L) 15 - 45 % [facility] (CLIA# [id number]) MONOCYTE % 1.7(L) 4 - 13 % [facility] (CLIA# [id number]) EOSINOPHIL % 0.3 0 - 6 % [facility] (CLIA# [id number]) BASOPHIL % 0.7 0 - 2 % [facility] (CLIA# [id number]) NEUTROPHILS # 5.9 1.8 - 7.7 K/mm3 [facility] (CLIA# [id number]) . [facility] (CLIA# [id number]) 02/22/1999 2:51 AM EST 02/22/1999 2:55 AM EST Narrative [facility] (CLIA# [id number]) - 02/22/1999 2:51 AM EST Ordered by INPT HOUSE SERVICE us Unknown Provider [facility] LABORATORY Final Resul t [facility] (CLIA# [id number]) [address] [place] [address] * AMYLASE (02/22/1999 2:51 AM EST) Only the most recent of2 resultswithin the time period is included. AMYLASE 112 35 - 115 U/L [facility] (CLIA# [id number]) 02/22/1999 2:51 AM EST 02/22/1999 2:55 AM EST Narrative [facility] (CLIA# [id number]) - 02/22/1999 2:51 AM EST Ordered by INPT HOUSE SERVICE us Unknown Provider [facility] LABORATORY Final Resul t [facility] (CLIA# [id number]) [address] [place] [address] * (ABNORMAL) CHEMISTRY PANEL CP-7 (02/22/1999 2:51 AM EST) Only the most recent of4 resultswithin the time period is included. SODIUM 146(H) 135 - 145 MMOL/L [facility] (CLIA# [id number]) POTASSIUM 4.4 3.4 - 5.1 MMOL/L [facility] (CLIA# [id number]) Comment:SAMPLE 1+ HEMOLYZED 6060 CHLORIDE 106 98 - 108 MMOL/L [facility] (CLIA# [id number]) CARBON DIOXIDE 33(H) 23 - 30 MMOL/L [facility] (CLIA# [id number]) BUN 18 6 - 22 MG/DL [facility] (CLIA# [id number]) CREATININE 0.7 0.4 - 1.3 MG/DL [facility] (CLIA# [id number]) Glucose 196(H) 70 - 110 MG/DL [facility] (CLIA# [id number]) Comment: Effective January 25, 1999: New critical high value for glucose ?6060 has been changed from 500 to 450. ?6060 BUN/Creatinine Ratio 25.7 6.0 - 35.0 [facility] (CLIA# [id number]) ANION GAP 7 2 - 11 [facility] (CLIA# [id number]) Comment: The size of the anion gap is significantly ?6060 influenced by albumin levels. ? 6060 02/22/1999 2:51 AM EST 02/22/1999 2:55 AM EST Narrative [facility] (CLIA# [id number]) - 02/22/1999 2:51 AM EST Ordered by INPT HOUSE SERVICE us Unknown Provider [facility] LABORATORY Final Resul t [facility] (CLIA# [id number]) [address] [place] [address] * CA 125 (07/01/1998 5:18 PM EDT) CA 125 6.3 U/ML [facility] (CLIA# [id number]) Comment: CA125 Reference Note: Please note new test methodology (MEIA) effective 06/17/98. A direct comparison of previous results is not possible and new baseline values need to be established, especially with patient results greater than 250 U/ML. ??Please contact the laboratory at ext. [phone] if there are questions. Reference range: ??99% of healthy females and males are below 35 U/ML. CA125 by MEIA technology. patient results greater than 250 U/ML. ??Please contact the laboratory at ext. [phone] if there are questions. Reference range: ??99% of healthy females and males are below 35 U/ML. CA125 by MEIA technology. 07/01/1998 5:18 PM EDT 07/01/1998 8:58 PM EDT Narrative [facility] (CLIA# [id number]) - 07/01/1998 5:18 PM EDT Normal reference [...] LABORATORY Final Resu lt Performing Organization Address City/[facility]/ZIP Co de Phone Number [facility] (CLIA# [id number]) [address] [place] [address] * TRIGLYCERIDES (07/01/1998 5:18 PM EDT) Only the most recent of2 resultswithin the time period is included. TRIGLYCERIDES 94 MG/DL [facility] (CLIA# [id number]) 07/01/1998 5:18 PM EDT 07/01/1998 8:55 PM EDT Narrative [facility] (CLIA# [id number]) - 07/01/1998 5:18 PM EDT NOT FASTING [...] LABORATORY Final Resu lt Performing Organization Address [facility]/ZIP Co de Phone Number [facility] (CLIA# [id number]) [address] [place] [address] * ALT (SGPT) (07/01/1998 5:18 PM EDT) Only the most recent of3 resultswithin the time period is included. ALT (SGPT) 22 10 - 40 IU/L [facility] (CLIA# [id number]) 07/01/1998 5:18 PM EDT 07/01/1998 8:55 PM EDT Narrative [facility] (CLIA# [id number]) - 07/01/1998 5:18 PM EDT Normal reference [...] LABORATORY Final Resu lt [facility] (CLIA# [id number]) [address] [place] [address] * AST (SGOT) (07/01/1998 5:18 PM EDT) Only the most recent of3 resultswithin the time period is included. AST (SGOT) 26 10 - 42 IU/L [facility] (CLIA# [id number]) 07/01/1998 5:18 PM EDT 07/01/1998 8:55 PM EDT [facility]ative [facility] ([facility]# [id number]) - 07/01/1998 5:18 PM EDT Normal reference [...] LABORATORY Final Resu lt Performing Organization Address [facility] [[email or web address]] de Phone Number [facility] (CLIA# [id number]) [address] [place] [address] * CHOLESTEROL, LDL (DIRECT) (07/01/1998 5:18 PM EDT) Only the most recent of2 resultswithin the time period is included. LDL-CHOLESTEROL 141 MG/DL [facility] (CLIA# [id number]) Comment: LDL REFERENCE RANGE COMMENT: The LDL result is a calculated value for Triglyceride values of less than 400 mg/dl Triglyceride values of less than 400 mg/dl 07/01/1998 5:18 PM EDT 07/01/1998 8:55 PM EDT Narrative [facility] (CLIA# [id number]) - 07/01/1998 5:18 PM EDT NOT FASTING [...] LABORATORY Final Resu lt Performing Organization Address [facility] Co de Phone Number [facility] (CLIA# [id number]) [address] [place] [address] * CHOLESTEROL, HDL (DIRECT) (07/01/1998 5:18 PM EDT) Only the most recent of2 resultswithin the time period is included. HDL-CHOLESTEROL 61 MG/DL [facility] (CLIA# [id number]) 07/01/1998 5:18 PM EDT 07/01/1998 8:55 PM EDT Narrative [facility] (CLIA# [id number]) - 07/01/1998 5:18 PM EDT NOT FASTING [...] LABORATORY Final Resu lt Performing Organization Address [facility] Co de Phone Number [facility] (CLIA# [id number]) [address] [place] [address] * CHOLESTEROL, TOTAL (07/01/1998 5:18 PM EDT) Only the most recent of2 resultswithin the time period is included. CHOLESTEROL, TOTAL 221 MG/DL [facility] (CLIA# [id number]) 07/01/1998 5:18 PM EDT 07/01/1998 8:55 PM EDT Narrative [facility] (CLIA# [id number]) - 07/01/1998 5:18 PM EDT NOT FASTING [...] LABORATORY Final Resu lt Performing Organization Address City/[facility]/ZIP Co de Phone Number [facility] (CLIA# [id number]) [address] [place] [address] * CALCIUM (07/01/1998 5:18 PM EDT) CALCIUM 9.4 8.5 - 10.2 MG/DL [facility] (CLIA# [id number]) 07/01/1998 5:18 PM EDT 07/01/1998 8:55 PM EDT Narrative [facility] (CLIA# [id number]) - 07/01/1998 5:18 PM EDT Normal reference [...] Lino MD LABORATORY Final Resu lt [facility] (CLIA# [id number]) [address] [place] [address] * MAMMOGRAPHY-BILATERAL (09/29/1993 8:30 AM EDT) Pathologist [facility] RADIOLOGY REPORT Procedure ID: [id number] MAMMOGRAM, BILATERAL BILATERAL MAMMOGRAMS Parenchymal and periductal [...] given to the patient. [facility] (CLIA# [id number]) Anatomical Region Laterality Modality Other 09/29/1993 8:30 AM EDT Narrative 09/30/1993 8:13 AM EDT Reason for Study/History: ROUTINE Test(s) processed by : NILSON MENDES us Chalino Lino MD GENERAL IMAGING- OTHER Fin al Result * WBC ([facility]) (07/02/1993 9:54 AM EDT) WHITE BLOOD COUNT 6.4 3.8 - 10.8 K/mm3 [facility] (CLIA# [id number]) 07/02/1993 9:54 AM EDT 07/02/1993 10:00 AM EDT Narrative [facility] (CLIA# [id number]) - 07/02/1993 9:54 AM EDT [address] [place] [address]. us Chalino Lino MD LABORATORY Final Resu lt Performing Organization Address City/[facility]/ZIP Co de Phone Number [facility] (CLIA# [id number]) [address] [place] [address] * ALKALINE PHOSPHATASE (07/01/1993 11:21 AM EDT) ALKALINE PHOSPHATASE 58 30 - 115 IU/L [facility] (CLIA# [id number]) 07/01/1993 11:2 1 AM EDT 07/01/1993 11:24 AM EDT Narrative [facility] (CLIA# [id number]) - 07/01/1993 11:21 AM EDT Ordered by INPT HOUSE SERVICE us Unknown Provider [facility] LABORATORY Final Resul t Performing Organization Address City/[facility]/ZIP Co de Phone Number [facility] (CLIA# [id number]) [address] [place] [address] * (ABNORMAL) URINALYSIS (07/01/1993 11:19 AM EDT) COLOR (URINE) YELLOW [facility] (CLIA# [id number]) APPEARANCE (URINE) CLEAR [facility] (CLIA# [id number]) GLUCOSE (URINE) NEG 0 - 0 mg/dL [facility] (CLIA# [id number]) BILIRUBIN (URINE) NEG 0 - 0 [facility] (CLIA# [id number]) Ketones (Urine) >80(A) 0 - 0 mg/dL [facility] (CLIA# [id number]) SPECIFIC GRAVITY 1.020 1.003 - 1.035 [facility] (CLIA# [id number]) UROBILINOGEN 0.2 0.2 - 1.0 EU/dl [facility] (CLIA# [id number]) NITRITE (URINE) NEG [facility] (CLIA# [id number]) BLOOD (URINE) NEG 0 - 0 [facility] (CLIA# [id number]) PH (URINE) 7.5 5.0 - 8.5 [facility] (CLIA# [id number]) PROTEIN (URINE) NEG 0 - 0 mg/dL [facility] (CLIA# [id number]) WBC (URINE) NEG 0 - 0 [facility] (CLIA# [id number]) 07/01/1993 11:1 9 AM EDT 07/01/1993 11:21 AM EDT Narrative [facility] (CLIA# [id number]) - 07/01/1993 11:19 AM EDT Ordered by INPT HOUSE SERVICE us Unknown Provider [facility] LABORATORY Final Resul t [facility] (CLIA# [id number]) [address] [place] [address] Visit Diagnoses Diagnosis Start Date Symptoms involving [...] I fracture of sacrum, initial encounter (HCC) 03/14/2024 Right sided sciatica Sciatica 03/15/2024 At risk of fracture due to osteoporosis 03/22/2024 Other secondary scoliosis, lumbar region 05/14/2024 Goals Goal Patient Goal Type Associated Problems Recent Progress Patient-Stated? Author Blood Pressure < 140/90 Blood Pressure 158/66( 024 3:45 PM EST) No Marsha Guzman CMA Care Teams Perinatal Educator Relationship Specialty Start Date End Date Vale Walls NP [address] [place] [address] PCP - General Geriatrics 07/13/20 Vale Walls NP [address] [place] [address] PCP - Backup PCP Geriatrics 10/06/21
--- OUTSIDE RECORDS SUMMARY | 2024-05-15 10:20 | XMS_ITS | Encounter Summary ---
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, 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, 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, 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
--- OUTSIDE RECORDS SUMMARY | 2024-05-15 10:20 | XMS_ITS | Encounter Summary ---
Author Organization [facility] Address [address] [place] [address] Care Team Providers Care Salesperson [employer] Accessories Name Role Phone Shreyas Orellana MD Primary Care Provider Unavaila Ashanti Shetty MD Primary Care Provider Cou[employer]ale badillo AIRCRAFT MANAGER Primary Care Provider [phone] Chastity Cortes MD Unavailable [phone] [employer] AIRCRAFT MANAGER Unavailable [phone] Encounter Details Date Type Department Care Team (Late st Contact Info) Description 07/11/2019 Orders Only [facility] [phone] Andrew Davis MD [address] [place] [address] [id number] Social History Tobacco Use Types Packs/Day Years [...] EDT Noted, results and counseling provided by international travel consultant MD documented in this encounter Plan of Treatment Not on file documented as of this encounter Goals Goal Patient Goal Type Associated Problems Recent Progress Patient-Stated? Author Blood Pressure < 140/90 Blood Pressure 158/66( 024 3:45 PM EST) Marsha Farah CMA documented as of this encounter Procedures * Due to [place] [employer] law, this organization might not be sharing negative HIV tests. Procedure Name Priority Date/Time Associated Diagnosis Comments SARS COV 2 RNA(COVID 19), QUALITATIVE NAAT Routine 07/11/2019 11:25 AM EDT Special screening examination for unspecified viral disease documented in this encounter Results * Due to [facility] law, this organization might not be sharing negative HIV tests. * (ABNORMAL) SARS COV 2 RNA(COVID 19), QUALITATIVE NAAT (07/11/2019 11:25 AM EDT) SARS-COV-2 RNA DETECTED( A) NOT DETECTED [facility] Comment: A Detected result is considered a positive test result for COVID-19. ??This indicates that RNA from SARS-CoV-2 (formerly 2019-nCoV) was detected, and the patient is infected with the virus and presumed to be contagious. If requested by public health authority, specimen will be sent for additional testing. Due to the current public health emergency, [employer] is receiving a high volume of samples [...] the FDA authorized labeling available on the [facility] website: [email or web address]. 07/11/2019 11:2 5 AM EDT 07/11/2019 4:43 PM EDT Narrative Resulting Agency Comment [id number] Andrew Davis MD LABORATORY Final Result [facility] [address] [place] [address] documented in this encounter Visit Diagnoses Diagnosis Special screening examination for unspecified viral disease documented in this encounter Additional Health Concerns Infection Onset Date Last Indicated Resolved Time COVID-19 Confirmed 07/11/2019 07/11/2019 0 8:12 PM EDT documented as of this encounter Care Teams Salesperson [employer] Accessories Relationship Specialty Start Date End Date Shreyas Orellana MD PCP - General Internal Medicine 07/10/19 09/06/19 Ashanti Kumar MD PCP - General Family Medicine 09/07/19 07/12/20 Vale Walls NP [address] [place] [address] PCP - General Geriatrics 07/13/20 Chastity Cortes MD [address] [place] [address] PCP - Backup PCP Geriatrics 10/23/20 03/30/21 Vale Walls NP [address] [place] [address] PCP - Backup PCP Geriatrics 10/06/21 documented as of this encounter
--- OUTSIDE RECORDS SUMMARY | 2024-05-15 10:20 | XMS_ITS | Encounter Summary ---
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
--- OUTSIDE RECORDS SUMMARY | 2024-05-15 10:20 | XMS_ITS | Encounter Summary ---
Author Organization [facility] Address [address] [place] [address] Care Team Providers Care Supervisor Warping Department Name Role Phone Shreyas Orellana MD Primary Care Provider UnavailAshanti Smith MD Primary Care Provider [phone] Shreyas Orellana MD Primary Care Provider UnavailAshanti Smith MD Primary Care Provider Vale Walls NP Primary Care Provider Chastity Cortes MD Unavailable Vale Walls NP Unavailable [phone] Encounter Details Date Type Department Care Team (Late st Contact Info) Description 08/08/2018 Orders Only [facility] [address] [place] [phone] Shreyas Orellana MD Social History Tobacco Use [...] 024 3:45 PM EST) No Marsha Guzman, COUNSELING CASE MANAGER documented as of this encounter Procedures * Due to [place] [facility] law, this organization might not be sharing [...] in this encounter Results * Due to [place] [facility] law, this organization might not be sharing negative HIV tests. * VITAMIN B12 (CYANOCOBALAMIN), SERUM (08/08/2018 1:24 PM EDT) Vitamin B12 (Cobalamins) 445 200 - 1100 pg/mL [facility] 08/08/2018 1:24 PM EDT 08/08/2018 7:50 PM EDT Narrative Resulting Agency Comment [id number] Shreyas Orellana MD LABORATORY Final Result [facility] [address] [place] [address] * THYROID CASCADING REFLEX (08/08/2018 1:24 PM EDT) TSH 2.94 0.40 - 4.50 mIU/L [facility] 08/08/2018 1:24 PM EDT 08/08/2018 7:50 PM EDT Narrative Resulting Agency Comment [id number] Shreyas Orellana MD LABORATORY Final Result [facility] [address] [place] [address] * BASIC METABOLIC PANEL WITH (GFR) (08/08/2018 1:24 PM EDT) Glucose 83 65 - 99 mg/dL [facility] Comment:Fasting reference in terval Urea Nitrogen Blood (BUN) 22 7 - 25 mg/dL [facility] Creatinine 0.79 0.60 - 0.88 mg/dL [facility] Comment: For patients >49 years of age, the reference limit for Creatinine is approximately 13% higher for people identified as -Azerbaijani. EGFR 71 > OR = 60 mL/min/1 [...] needs for GFR calculation. Resulting Agency Comment [id number] Shreyas Orellana MD LABORATORY Final Result [facility] [address] [place] [address] * CBC INCLUDES DIFFERENTIAL AND PLATELET COUNT [...] 7:50 PM EDT Narrative Resulting Agency Comment [id number] Shreyas Orellana MD LAB SAME DAY RESULT Final Resul t Performing Organization Address City/State/[facility] Co de Phone Number [facility] [address] [place] [address] documented in this encounter Visit Diagnoses Diagnosis Fatigue, unspecified type documented in this encounter Additional Health Concerns Infection Onset Date Last Indicated Resolved Time COVID-19 Confirmed 07/11/2019 07/11/2019 0 8:12 PM EDT documented as of this encounter Care Teams Supervisor Warping Department Relationship Specialty Start Date End Date Shreyas Orellana MD PCP - General Internal Medicine 09/02/15 07/07/19 Ashanti Kumar MD PCP - General Family Medicine 07/08/19 07/09/19 Shreyas Orellana MD PCP - General Internal Medicine 07/10/19 09/06/19 Ashanti Kumar MD PCP - General Family Medicine 09/07/19 07/12/20 Vale Walls NP [address] [place] [address] PCP - General Geriatrics 07/13/20 Chastity Cortes MD [address] [place] [address] PCP - Backup PCP Geriatrics 10/23/20 03/30/21 Vale Walls NP [address] [place] [address] PCP - Backup PCP Geriatrics 10/06/21 documented as of this encounter
--- OUTSIDE RECORDS SUMMARY | 2024-05-15 10:20 | XMS_ITS | Encounter Summary ---
Author Organization [facility] Address [address] [place] [address] Care Team Providers Care Heel Varnisher Name Role Phone Vale Walls CHANGE MANAGEMENT MANAGER Primary Care Provider [phone] Vale Walls CHANGE MANAGEMENT MANAGER Unavailable [phone] Reason for Visit * Reason Comments E-prescribing Refill Request Encounter Details Date Type Department Care Team ([facility] st Contact Info) Description 11/29/2023 Refill [facility] [address] [facility] [address] [place] [address] Karli Berry PA [address] [facility] [address] [place] [address] E-prescribing Refill Request Social History Tobacco Use [...] Start Date Job End Date 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 Faxed/E-prescribed medication renewal request(s) for Carlene Benjaminwinsome 83 y.o. female received from pharmacy. The [...] on filedocumented in this encounter Care Teams Heel Varnisher Relationship Specialty Start Date End Date Vale Walls NP [address] [place] [address] PCP - General Geriatrics 07/13/20 Vale Walls NP [address] [place] [address] PCP - Backup PCP Geriatrics 10/06/21 documented as of this encounter
--- OUTSIDE RECORDS SUMMARY | 2024-05-15 10:20 | XMS_ITS | Encounter Summary ---
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 Advised RN is not sure of this [...] Pt is getting a second opinion at [facility] * Telephone Encounter - Winnie Gracia RN [...] MRI was ordered by another MD at [facility]. Not the PCP. She just wants the [...] 4. 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 *[place] critical alert A(n) [place] actionable finding has been communicated to the ordering or responsible provider via the [employer] Findings system on 04/06/2024 11:04 AM. Receipt of this communication by the responsible provider will be documented in [employer] Findings upon receiving acknowle dgement if applicable, Message ID [id number]. If this radiology report contains a blank impression section, it is an incomplete radiology report.Please contact the interpreting radiologist or applicable radiology division as soon as possible toobtain the completed interpretation. Workstation ID: [id number] Narrative EXAMINATION: MRI of lumbar spine without [...] on filedocumented in this encounter Care Teams Ream Cutter Relationship Specialty Start Date End Date Vale Walls NP [address] [place] [address] PCP - General Geriatrics 07/13/20 Vale Walls NP [address] [place] [address] PCP - Backup PCP Geriatrics 10/06/21 documented as of this encounter
--- OUTSIDE RECORDS SUMMARY | 2024-05-15 10:20 | XMS_ITS | Encounter Summary ---
Author Organization [facility] Address [address] [place] [address] Care Team Providers Care Baker Pie Name Role Phone Ashanti Kumar MD Primary Care Provider Vale Walls ARMED SECURITY PROFESSIONAL Primary Care Provider Chastity Cortes MD Unavailable [phone] CouVale badillo ARMED SECURITY PROFESSIONAL Unavailable [phone] Encounter Details Date Type Department Care Team (Late st Contact Info) Description 12/27/2019 Orders Only [facility] [address] [place] [phone] Shreyas Orellana MD Social History Tobacco [...] Start Date Job End Date 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 EGFR 67 > OR = 60 mL/min/1 [...] needs for GFR calculation. Resulting Agency Comment [id number] Shreyas Orellana MD LABORATORY Final Result [facility] [address] [place] [address] * CBC INCLUDES DIFFERENTIAL AND PLATELET COUNT [...] 11:49 AM EDT Narrative Resulting Agency Comment [id number] Shreyas Orellana MD LAB SAME DAY RESULT Final Resul t [facility] [address] [place] [address] documented in this encounter Visit Diagnoses Diagnosis Pneumonia of left lower lobe due to infectious organism documented in this encounter Care Teams Baker Pie Relationship Specialty Start Date End Date Ashanti Kumar MD PCP - General Family Medicine 09/07/19 07/12/20 Vale Walls NP [address] [place] [address] PCP - General Geriatrics 07/13/20 Chastity Cortes MD [address] [place] [address] PCP - Backup PCP Geriatrics 10/23/20 03/30/21 Vale Walls NP [address] [place] [address] PCP - Backup PCP Geriatrics 10/06/21 documented as of this encounter
--- OUTSIDE RECORDS SUMMARY | 2024-05-15 10:20 | XMS_ITS | Encounter Summary ---
Author Organization [facility] Address [address] [place] [address] Care Team Providers Care Motor Adjuster Name Role Phone Alison Francis MD Primary Care Provider [phone] Shreyas Orellana MD Primary Care Provider UnavailAshanti Smith MD Primary Care Provider [phone] Shreyas Orellana MD Primary Care Provider UnavailAshanti Smith MD Primary Care Provider Vale Walls HEALTH SAFETY AND ENVIRONMENT MANAGER Primary Care Provider Chastity Cortes MD Unavailable Vale Walls HEALTH SAFETY AND ENVIRONMENT MANAGER Unavailable Encounter Details Date Type Department Care Team (Late st Contact Info) Description 05/26/2011 [facility] Only [facility] [address] [place] [address] Alison Francis MD [address] [place] [address] Social History Tobacco Use Types Packs/Day Years [...] of this encounter Procedures * Due to [place] [employer] law, this organization might not be sharing [...] in this encounter Results * Due to [place] [employer] law, this organization might not be sharing negative HIV tests. * (ABNORMAL) VITAMIN D, 25-HYDROXY, LC/MS/MS (05/26/2011 8:47 AM EST) Vitamin D, 25-OH, Total 26(L) 30 - 100 ng/mL [facility] Comment:{VITAMIN D, 25 OH, T OTAL {[id number]) Vitamin D, D3 (Cholecalciferol ) 26 ng/mL [facility] Comment:{VITAMIN D, 25 OH, D 3 {[id number]) Vitamin D, 25-OH, D2 (Calciferol) <4 ng/mL [facility] Comment: {VITAMIN D, 25 OH, D2 {[id number]) ? 25-OHD3 indicates both endogenous production and [...] 12:22 PM EST Narrative Resulting Agency Comment [id number] Alison Francis MD LABORATORY Final Result Performing Organization Address City/State/[facility] Co de Phone Number [facility] [address] [place] [address] * T4, FREE THYROXINE (05/26/2011 8:47 AM EST) FT4 1.1 0.8 - 1.8 ng/dL [facility] Comment:{T4, FREE {[id number]) 05/26/2011 8:47 AM EST 05/26/2011 12:22 PM EST Narrative Resulting Agency Comment [id number] lAison Francis MD LABORATORY Final Result [facility] [address] [place] [address] * TSH (THYROTROPIN) (05/26/2011 8:47 AM EST) Pathologist [facility] TSH 2.04 0.40 - 4.50 mIU/L [facility] Comment:{TSH {[id number]) 05/26/2011 8:47 AM EST 05/26/2011 12:22 PM EST Narrative Resulting Agency Comment [id number] Alison Francis MD LABORATORY Final Result Performing Organization Address City/[facility]/ZIP Co de Phone Number [facility] [address] [place] [address] * CBC 5 PART DIFF (05/26/2011 8:47 AM EST) Pathologist [facility] WBC 6.6 3.8 - 10.8 Thousand/u L [facility] Comment:{WHITE BLOOD CELL CO UNT {[id number]) RBC 4.88 3.80 - 5.10 Million/uL [facility] Comment:{RED BLOOD CELL COUN T {[id number]) Hemoglobin 14.5 11.7 - 15.5 g/dL [facility] Comment:{HEMOGLOBIN {[id number]) Hematocrit 43.0 35.0 - 45.0 % [facility] Comment:{HEMATOCRIT {[id number]) MCV 88.0 80.0 - 100.0 fL [facility] Comment:{MCV {[id number]) MCH 29.6 27.0 - 33.0 pg [facility] Comment:{MCH {[id number]) MCHC 33.7 32.0 - 36.0 g/dL [facility] Comment:{MCHC {[id number]) RDW 13.4 11.0 - 15.0 % [facility] Comment:{RDW {[id number]) PLT 236 140 - 400 Thousand/u L [facility] Comment:{PLATELET COUNT {[id number]) MPV 8.7 7.5 - 11.5 fL [facility] Comment:{MPV {[id number]) Neutrophils # 4382 1500 - 7800 cells/uL [facility] Comment:{ABSOLUTE NEUTROPHIL S {[id number]) Lymphocytes # 1604 850 - 3900 cells/uL [facility] Comment:{ABSOLUTE LYMPHOCYTE S {[id number]) Monocytes # 436 200 - 950 cells/uL [facility] Comment:{ABSOLUTE MONOCYTES {[id number]) Eosinophils # 132 15 - 500 cells/uL [facility] Comment:{ABSOLUTE EOSINOPHIL S {[id number]) Basophils # 46 0 - 200 cells/uL [facility] Comment:{ABSOLUTE BASOPHILS {[id number]) Neutrophils % 66.4 % [facility] Comment:{NEUTROPHILS {[id number]) Lymphocytes % 24.3 % [facility] Comment:{LYMPHOCYTES {[id number]) Monocytes % 6.6 % [facility] Comment:{MONOCYTES {[id number]) Eosinophils % 2.0 % [facility] Comment:{EOSINOPHILS {[id number]) Basophils % 0.7 % [facility] Comment:{BASOPHILS {[id number]) 05/26/2011 8:47 AM EST 05/26/2011 12:22 PM EST Narrative Resulting Agency Comment [id number] us Alison Francis MD LAB SAME DAY RESULT Final Resul t [facility] [address] [place] [address] * (ABNORMAL) BASIC METABOLIC PANEL W/GLOMERULAR FILTRATION RATE (EGFR) (05/26/2011 8:47 AM EST) Glucose 99 65 - 99 mg/dL [facility] Comment: {GLUCOSE {[id number]) ? Fasting reference interval Urea Nitrogen Blood (BUN) 31(H) 7 - 25 mg/dL [facility] Comment:{UREA NITROGEN (BUN) {[id number]) Creatinine 1.33(H) 0.60 - 0.93 mg/dL [facility] Comment: {CREATININE {[id number]) For patients >49 years of age, the reference limit for Creatinine is approximately 13% higher for people identified as -Burmese. GFR 40(L) > OR = 60 mL/min/1. 73m2 [facility] Comment:{eGFR NON-AFR. AMERI CAN {[id number]) GFR () 46(L) > OR = 60 mL/min/1. 73m2 [facility] Comment:{eGFR AMERIC AN {[id number]) BUN/Creatinine Ratio 23(H) 6 - 22 (calc) [facility] Comment:{BUN/CREATININE RATI O {[id number]) Sodium 140 135 - 146 mmol/L [facility] Comment:{SODIUM {[id number]) Potassium 3.9 3.5 - 5.3 mmol/L [facility] Comment:{POTASSIUM {[id number]) Chloride 107 98 - 110 mmol/L [facility] Comment:{CHLORIDE {[id number]) Carbon dioxide 21 21 - 33 mmol/L [facility] Comment:{CARBON DIOXIDE {[id number]) Calcium 9.9 8.6 - 10.4 mg/dL [facility] Comment:{CALCIUM {[id number]) 05/26/2011 8:47 AM EST 05/26/2011 12:22 [...] needs for GFR calculation. Resulting Agency Comment [id number] Alison Francis MD LABORATORY Final Result [facility] [address] [place] [address] * ASPARTATE AMINOTRANSFERASE (AST), SERUM (05/26/2011 8:47 AM EST) AST (SGOT) 26 10 - 35 U/L [facility] Comment:{AST {[id number]) 05/26/2011 8:47 AM EST 05/26/2011 12:22 PM EST Narrative Resulting Agency Comment [id number] Alison Francis MD LAB SAME DAY RESULT Final Resul t Performing Organization Address [facility] Co de Phone Number [facility] [address] [place] [address] * (ABNORMAL) LIPID PANEL + CARDIAC RISK WITH REFLEX TO LDL DIRECT (05/26/2011 8:47 AM EST) Cholesterol 233(H) 125 - 200 mg/dL [facility] Comment:{CHOLESTEROL, TOTAL {[id number]) HDL Cholesterol 59 > OR = 46 mg/dL [facility] Comment:{HDL CHOLESTEROL {[id number]) Triglyceride 113 <150 mg/dL [facility] Comment:{TRIGLYCERIDES {[id number]) LDL Cholesterol 151(H) <130 mg/dL (calc) [facility] Comment: {LDL-CHOLESTEROL {[id number]) Desirable range <100 mg/dL for patients with CHD or diabetes and <70 mg/dL for diabetic patients with known heart disease. CHOL/HDL Ratio 3.9 < OR = 5.0 (calc) [facility] Comment:{CHOL/HDLC RATIO {[id number]) 05/26/2011 8:47 AM EST 05/26/2011 12:22 PM EST Narrative Resulting Agency Comment [id number] us Alison Francis MD LABORATORY Final Result Performing Organization Address [facility] Co de Phone Number [facility] [address] [place] [address] * VITAMIN B12 (CYANOCOBALAMIN), SERUM (05/26/2011 8:47 AM EST) Vitamin B12 (Cobalamins) 922 200 - 1100 pg/mL [facility] Comment:{VITAMIN B12 {[id number]) 05/26/2011 8:47 AM EST 05/26/2011 12:22 PM EST Narrative Resulting Agency Comment [id number] Alison Francis MD LABORATORY Final Result [facility] [address] [place] [address] documented in this encounter Visit Diagnoses Diagnosis [...] documented as of this encounter Care Teams Motor Adjuster Relationship Specialty Start Date End Date Alison Francis MD PCP - General 03/20/10 09/01/15 Shreyas Orellana MD PCP - General Internal Medicine 09/02/15 07/07/19 Ashanti Kumar MD PCP - General Family Medicine 07/08/19 07/09/19 Shreyas Orellana MD PCP - General Internal Medicine 07/10/19 09/06/19 Ashanti Kumar MD PCP - General Family Medicine 09/07/19 07/12/20 Vale Walls NP [address] [place] [address] PCP - General Geriatrics 07/13/20 Chastity Cortes MD [address] [place] [address] PCP - Backup PCP Geriatrics 10/23/20 03/30/21 Vale Walls NP [address] [place] [address] PCP - Backup PCP Geriatrics 10/06/21 documented as of this encounter
--- OUTSIDE RECORDS SUMMARY | 2024-05-15 10:21 | XMS_ITS | Encounter Summary ---
Author Organization [facility] Address [address] [place] [address] Care Team Providers Care Cement Gun Operator Name Role Phone Shreyas Orellana MD Primary Care Provider UnavailAshanti Smith MD Primary Care Provider [phone] Shreyas Orellana MD Primary Care Provider UnavailAshanti Smith MD Primary Care Provider Vale Walls NP Primary Care Provider Chastity Cortes MD Unavailable Vale Wlals NP Unavailable Encounter Details Date Type Department Care Team (Late st Contact Info) Description 08/30/2016 Orders Only [facility] [address] [place] [phone] Shreyas Orellana MD Social History Tobacco Use [...] EDT Call pt k is 3. Adv [id number] qd x one week book basic in [...] this encounter Procedures * Due to [place] [employer] law, this organization might not be sharing [...] this encounter Results * Due to [place] [employer] law, this organization might not be sharing [...] D, (D2,D3), LC/MS/MS is recommended: order code 89561 (patients >2yrs). For more information on this test, go to: http://education.IKO System/faq/RBO141 (This link is being provided for informational/educational purposes only.) 08/30/2016 10:4 1 AM EDT 08/30/2016 2:54 PM EDT Narrative Resulting Agency Comment [id number] Shreyas Orellana MD LABORATORY Final Result [facility] [address] [place] [address] * (ABNORMAL) BASIC METABOLIC PANEL WITH (GFR) (08/30/2016 10:41 AM EDT) [facility] Glucose 111(H) 65 - 99 mg/dL [facility] [...] approximately 13% higher for people identified as -Tanzanian. GFR 41(L) > OR = 60 mL/min/1. [...] needs for GFR calculation. Resulting Agency Comment [id number] Shreyas Orellana MD LABORATORY Final Result Performing Organization Address [facility] de Phone Number [facility] [address] [place] [address] * (ABNORMAL) LIPID PANEL WITH REFLEX TO [...] 2:54 PM EDT Narrative Resulting Agency Comment [id number] Shreyas Orellana MD LABORATORY Final Result Performing Organization Address [facility] de Phone Number [facility] [address] [place] [address] documented in this encounter Visit Diagnoses Diagnosis Lipids blood increased Other and unspecified hyperlipidemia Encounter for long-term (current) use of high-risk medication Encounter for long-term (current) use of other medications Vitamin D deficiency documented in this encounter Additional Health Concerns Infection Onset Date Last Indicated Resolved Time COVID-19 Confirmed 07/11/2019 07/11/2019 0 8:12 PM EDT documented as of this encounter Care Teams Cement Gun Operator Relationship Specialty Start Date End Date Shreyas Orellana MD PCP - General Internal Medicine 09/02/15 07/07/19 Ashanti Kumar MD PCP - General Family Medicine 07/08/19 07/09/19 Shreyas Orellana MD PCP - General Internal Medicine 07/10/19 09/06/19 Ashanti Kumar MD PCP - General Family Medicine 09/07/19 07/12/20 Vale Walls NP [address] [place] [address] PCP - General Geriatrics 07/13/20 Chastity Cortes MD [address] [place] [address] PCP - Backup PCP Geriatrics 10/23/20 03/30/21 Vale Walls NP [address] [place] [address] PCP - Backup PCP Geriatrics 10/06/21 documented as of this encounter
--- OUTSIDE RECORDS SUMMARY | 2024-05-15 10:21 | XMS_ITS | Encounter Summary ---
Author Organization [facility] Address [address] [place] [address] Care Team Providers Care Merit System Director Name Role Phone Shreyas Orellana MD Primary Care Provider UnavailAshanti Smith MD Primary Care Provider Shreyas Orellana MD Primary Care Provider UnavailAshanti Smith MD Primary Care Provider [phone] Vale Walls NP Primary Care Provider Chastity Cortes MD Unavailable [phone] Vale Walls NP Unavailable Encounter Details Date Type Department Care Team (Late st Contact Info) Description 09/08/2016 Orders Only [facility] [address] [place] [phone] Shreyas Orellana MD Social History Tobacco Use [...] of this encounter Results * Due to [place] state law, this organization might not be [...] approximately 13% higher for people identified as -Austrian. GFR 63 > OR = 60 mL/min/1. [...] needs for GFR calculation. Resulting Agency Comment [id number] Shreyas Orellana MD LABORATORY Final Result [facility] [address] [place] [address] documented in this encounter Visit Diagnoses Diagnosis Hypokalemia Hypopotassemia Hypokalemia Hypopotassemia documented in this encounter Additional Health Concerns Infection Onset Date Last Indicated Resolved Time COVID-19 Confirmed 07/11/2019 07/11/2019 0 8:12 PM EDT documented as of this encounter Care Teams Merit System Director Relationship Specialty Start Date End Date Shreyas Orellana MD PCP - General Internal Medicine 09/02/15 07/07/19 Ashanti Kumar MD PCP - General Family Medicine 07/08/19 07/09/19 Shreyas Orellana MD PCP - General Internal Medicine 07/10/19 09/06/19 Ashanti Kumar MD PCP - General Family Medicine 09/07/19 07/12/20 Vale Walls NP [address] [place] [address] PCP - General Geriatrics 07/13/20 Chastity Cortes MD [address] [place] [address] PCP - Backup PCP Geriatrics 10/23/20 03/30/21 Vale Walls NP [address] [place] [address] PCP - Backup PCP Geriatrics 10/06/21 documented as of this encounter
--- OUTSIDE RECORDS SUMMARY | 2024-05-15 10:21 | XMS_ITS | Encounter Summary ---
Author Organization [facility] Address [address] [place] [address] Care Team Providers Care Counseling Case Manager Name Role Phone Alison Francis MD Primary Care Provider Shreyas Orellana MD Primary Care Provider UnavailAshanti Smith MD Primary Care Provider Shreyas Orellana MD Primary Care Provider UnavailAshanti Smith MD Primary Care Provider [phone] Vale Walls LICENSED ACUPUNCTURIST Primary Care Provider Chastity Cortes MD Unavailable Vale Walls LICENSED ACUPUNCTURIST Unavailable [phone] Encounter Details Date Type Department Care Team (Late st Contact Info) Description 07/07/2015 Orders Only July Internal Medicine [address] [place] [address] Alison Francis MD [address] [place] [id number] Medications Social History Tobacco Use Types Packs/Day [...] this encounter Procedures * Due to [place] [email or web address] law, this organization might not be sharing [...] this encounter Results * Due to [place] [email or web address] law, this organization might not be sharing negative HIV tests. * URINALYSIS, DIP ONLY ( SITE STAT ONLY) (07/07/2015 12:22 PM EDT) COLOR (URINE) YELLOW [facility] (CLIA# [id number]) APPEARANCE (URINE) CLEAR [facility] (CLIA# [id number]) SPECIFIC GRAVITY 1.010 1.001 - 1.035 [facility] (CLIA# [id number]) PH (URINE) 7.5 5.0 - 8.0 [facility] (CLIA# [id number]) PROTEIN (URINE) NEGATIVE Neg [facility] (CLIA# [id number]) GLUCOSE (URINE) NEGATIVE Neg [facility] (CLIA# [id number]) Ketones (Urine) NEGATIVE Neg [facility] (CLIA# [id number]) BILIRUBIN (URINE) NEGATIVE Neg [facility] (CLIA# [id number]) BLOOD (URINE) NEGATIVE Neg [facility] (CLIA# [id number]) WBC (URINE) NEGATIVE Neg [facility] (CLIA# [id number]) NITRITE (URINE) NEGATIVE Neg [facility] (CLIA# [id number]) Urine specimen obtained by clean catch procedure (specimen) 07/07/2015 12:22 PM EDT us Alison Francis MD LAB SAME DAY RESULT Final Resul t [facility] (CLIA# [id number]) [address] [place] [address] * LIPID PANEL WITH REFLEX TO DIRECT LDL (07/07/2015 11:55 AM EDT) Cholesterol 200 125 - 200 mg/dL [facility] Comment:{CHOLESTEROL, TOTAL {[id number]) HDL Cholesterol 51 > OR = 46 mg/dL [facility] Comment:{HDL CHOLESTEROL {[id number]) Triglyceride 120 <150 mg/dL [facility] Comment:{TRIGLYCERIDES {[id number]) LDL Cholesterol 125 <130 mg/dL (calc) [facility] Comment: {LDL-CHOLESTEROL {[id number]) Desirable range <100 mg/dL for patients with CHD or diabetes and <70 mg/dL for diabetic patients with known heart disease. CHOL/HDL Ratio 3.9 < OR = 5.0 (calc) [facility] Comment:{CHOL/HDLC RATIO {[id number]) Cholesterol Non-HDL 149 mg/dL (calc) [facility] Comment: {NON HDL CHOLESTEROL {[id number]) Target for non-HDL cholesterol is 30 mg/dL higher than LDL cholesterol target. 07/07/2015 11:5 5 AM EDT 07/07/2015 7:19 PM EDT Narrative Resulting Agency Comment [id number] Alison Francis MD LABORATORY Final Result [facility] [address] [place] [address] * (ABNORMAL) BASIC METABOLIC PANEL WITH (GFR) (07/07/2015 11:55 AM EDT) Glucose 93 65 - 99 mg/dL [facility] Comment: {GLUCOSE {[id number]) ? Fasting reference interval Urea Nitrogen Blood (BUN) 23 7 - 25 mg/dL [facility] Comment:{UREA NITROGEN (BUN) {[id number]) Creatinine 0.80 0.60 - 0.93 mg/dL [facility] Comment: {CREATININE {[id number]) For patients >49 years of age, the reference limit for Creatinine is approximately 13% higher for people identified as -[place]. GFR 71 > OR = 60 mL/min/1 .73m2 [facility] Comment:{eGFR NON-AFR. AMERI CAN {[id number]) GFR () 82 > OR = 60 mL/min/1 .73m2 [facility] Comment:{eGFR AMERIC AN {[id number]) BUN/Creatinine Ratio NOT APPLICABLE 6 - (calc) [facility] Comment:{BUN/CREATININE RATI O {[id number]) Sodium 135 135 - 146 mmol/L [facility] Comment:{SODIUM {[id number]) Potassium 3.1(L) 3.5 - 5.3 mmol/L [facility] Comment:{POTASSIUM {[id number]) Chloride 100 98 - 110 mmol/L [facility] Comment:{CHLORIDE {[id number]) Carbon dioxide 23 19 - 30 mmol/L [facility] Comment:{CARBON DIOXIDE {[id number]) Calcium 9.3 8.6 - 10.4 mg/dL [facility] Comment:{CALCIUM {[id number]) 07/07/2015 11:5 5 AM EDT 07/07/2015 [...] needs for GFR calculation. Resulting Agency Comment [id number] Alison Francis MD LABORATORY Final Result [facility] [address] [place] [address] * CBC INCLUDES DIFFERENTIAL AND PLATELET COUNT (07/07/2015 11:55 AM EDT) WBC 6.1 3.8 - 10.8 Thousand/u L [facility] Comment:{WHITE BLOOD CELL CO UNT {[id number]) RBC 4.91 3.80 - 5.10 Million/uL [facility] Comment:{RED BLOOD CELL COUN T {[id number]) Hemoglobin 14.0 11.7 - 15.5 g/dL [facility] Comment:{HEMOGLOBIN {[id number]) Hematocrit 42.3 35.0 - 45.0 % [facility] Comment:{HEMATOCRIT {[id number]) MCV 86.1 80.0 - 100.0 fL [facility] Comment:{MCV {[id number]) MCH 28.6 27.0 - 33.0 pg [facility] Comment:{MCH {[id number]) MCHC 33.2 32.0 - 36.0 g/dL [facility] Comment:{MCHC {[id number]) RDW 13.6 11.0 - 15.0 % [facility] Comment:{RDW {[id number]) PLT 189 140 - 400 Thousand/u L [facility] Comment:{PLATELET COUNT {[id number]) MPV 8.3 7.5 - 11.5 fL [facility] Comment:{MPV {[id number]) Neutrophils # 2946 1500 - 7800 cells/uL [facility] Comment:{ABSOLUTE NEUTROPHIL S {[id number]) Lymphocytes # 2532 850 - 3900 cells/uL [facility] Comment:{ABSOLUTE LYMPHOCYTE S {[id number]) Monocytes # 464 200 - 950 cells/uL [facility] Comment:{ABSOLUTE MONOCYTES {[id number]) Eosinophils # 110 15 - 500 cells/uL [facility] Comment:{ABSOLUTE EOSINOPHIL S {[id number]) Basophils # 49 0 - 200 cells/uL [facility] Comment:{ABSOLUTE BASOPHILS {[id number]) Neutrophils % 48.3 % [facility] Comment:{NEUTROPHILS {[id number]) Lymphocytes % 41.5 % [facility] Comment:{LYMPHOCYTES {[id number]) Monocytes % 7.6 % [facility] Comment:{MONOCYTES {[id number]) Eosinophils % 1.8 % [facility] Comment:{EOSINOPHILS {[id number]) Basophils % 0.8 % [facility] Comment:{BASOPHILS {[id number]) 07/07/2015 11:5 5 AM EDT 07/07/2015 7:19 PM EDT Narrative Resulting Agency Comment [id number] Alison Francis MD LAB SAME DAY RESULT Final Resul t [facility] [address] [place] [address] * (ABNORMAL) VITAMIN D, 25-HYDROXY, TOTAL, IMMUNOASSAY (07/07/2015 11:55 AM EDT) Vitamin D, 25-OH, Total 26(L) 30 - 100 ng/mL [facility] Comment: {VITAMIN D,25-OH,TOTAL,IA {[id number]) Vitamin D Status ? 25-OH Vitamin D: Deficiency: ?<20 ng/mL Insufficiency: ? 20 - 29 ng/mL Optimal: ? > or = 30 ng/mL For 25-OH Vitamin D testing on patients on D2-supplementation and patients for whom quantitation of D2 and D3 fractions is required, the QuestAssureD(TM) 25-OH VIT D, (D2,D3), LC/MS/MS is recommended: order code [id number] (patients >2yrs). For more information on this test, go to: http://education.[employer]/faq/YZE666 (This link is being provided for informational/educational purposes only.) 07/07/2015 11:5 5 AM EDT 07/07/2015 7:19 PM EDT Narrative Resulting Agency Comment [id number] Alison Francis MD LABORATORY Final Result [facility] [address] [place] [address] documented in this encounter Visit Diagnoses Diagnosis Vitamin D deficiency Chronic Renal Insufficiency Hyperlipidemia; LDL Goal < 130 Other and unspecified hyperlipidemia documented in this encounter Additional Health Concerns Infection Onset Date Last Indicated Resolved Time COVID-19 Confirmed 07/11/2019 07/11/2019 0 8:12 PM EDT documented as of this encounter Care Teams Counseling Case Manager Relationship Specialty Start Date End Date Alison Francis MD PCP - General 03/20/10 09/01/15 Shreyas Orellana MD PCP - General Internal Medicine 09/02/15 07/07/19 Ashanti Kumar MD PCP - General Family Medicine 07/08/19 07/09/19 Shreyas Orellana MD PCP - General Internal Medicine 07/10/19 09/06/19 Ashanti Kumar MD PCP - General Family Medicine 09/07/19 07/12/20 Vale Walls NP [address] [place] [address] PCP - General Geriatrics 07/13/20 Chastity Cortes MD [address] [place] [address] PCP - Backup PCP Geriatrics 10/23/20 03/30/21 Vale Walls NP [address] [place] [address] PCP - Backup PCP Geriatrics 10/06/21 documented as of this encounter
--- OUTSIDE RECORDS SUMMARY | 2024-05-15 10:21 | XMS_ITS | Encounter Summary ---
Author Organization [facility] Address [address] [place] [address] Care Team Providers Care Him Tech Name Role Phone Vale Walls Primary Care Provider [phone] Reason for Visit * Reason Comments Leg Pain Back Pain Abdominal Pain * Auth/Cert (Routine) Specialty Diagnoses / Procedures Referred By Contac t Referred To Contact Diagnoses Back pain at L4-L5 level Referral ID Status Reason Start Date Expiration Date Visits Re quested Visits Authorized [id number] [phone] Encounter Details Date Type Department Care Team (Late st Contact Info) Description 04/18/2024 5:23 PM EST - 04/19/2024 3:15 PM EST Emergency [facility] Emergency Department [address] [place] [phone] Fermin Hawkins MD [address] [place] [address] [place] [address] Elvis Tran MD [address] [place] [address] Patsy Merchant MD [address] [place] [address] Back pain at L4-L5 level (Primary Dx); [...] Orientation Straight 05/11/2024 3: 02 PM EST documented as of this encounter Last Filed [...] original note were not included. DISCHARGE SUMMARY [facility] DISCHARGE INFORMATION: Date and Time of Admission: 04/19/2024 12:08 AM Date of Discharge: 04/19/24 DISCHARGE DIAGNOSIS: Problem List Active Problems * (Principal) Back pain at L4-L5 level Back pain with radiculopathy Hypertension Impaired mobility Insomnia Mood disorder (HCC) Neuroforaminal stenosis of lumbar spine Resolved Problems RESOLVED: Abnormal urinalysis ATTENDING PHYSICIAN ON DISCHARGE: Attending Provider: Elvis Tran MD [phone] FOLLOW-UPS AND SCHEDULED APPOINTMENTS: Future Appointments Date Time Provider Department Center 04/22/2024 8:30 AM [facility] XRASHLEIGH SARKAR [facility] 04/22/2024 8:30 AM Piero Hilton MD [facility] Spine Pr DANIELA AR 05/17/2024 11:00 AM GONZÁLEZ [facility] Rheum BERWICK AR CONTACT INFORMATION FOR FOLLOW-UP [facility] ([facility]) Specialty: Home Health Services [address] [facility] [id number] Next Steps: Follow up Vale Walls Specialty: Nurse Practitioner Relationship: PCP - General [facility] [address] [facility] [address] Next Steps: Call in 3 day(s) Instructions: [...] HISTORY: Past Surgical History: Procedure Laterality Date MA EXCIS CERV DISK,ONE LEVEL N/A History of Laminectomy With Disc Removal MA TOTAL ABDOM HYSTERECTOMY N/A History of Hysterectomy [...] Clarity, Urine Slightly Cloudy (A) Clear Specific Egan, Urine 1.025 1.005 - 1.030 pH, Urine [...] to obtain the completed interpretation. Workstation ID: [id number] CT Abd Pelvis W Contrast, CT Reconstruction of Lumbar Spine Result Date: 04/18/2024 No acute abnormality. If this radiology report contains a blank impression section, it is an incomplete radiology report. Please contact the interpreting radiologist or applicable radiology division as soon as possible to obtain the completed interpretation. Workstation ID: [id number] Up-to-date CT equipment and radiation dose reduction techniques were employed. CTDIvol: 14.7 mGy. DLP: 672 mGy-cm. The following accession numbers are related to this dose report [id number]: [id number] Up-to-date CT equipment and radiation dose reduction techniques were employed. CTDIvol: 14.7 mGy. DLP: 672 mGy-cm.The following accession numbers are related to this dose report [id number]: [id number] GLOBAL PLAN OF CARE CONSULTS: IP CONSULT [...] home medications same as before - Continue vvth-eff-khhtkxg analgesics like Tylenol or ibuprofen, continue oxycodone [...] Past Medical History: Hypertension Past Surgical History: MA EXCIS CERV DISK,ONE LEVEL; N/A MA TOTAL ABDOM HYSTERECTOMY; N/A Home Medications: acetaminophen [...] Site Days Peripheral IV 04/18/24 Left Antecubital 04/18/24 1904 Antecubital less than 1 , Active Drains [...] Clarity, Urine Slightly Cloudy (A) Clear Specific Egan, Urine 1.025 1.005 - 1.030 pH, Urine [...] to obtain the completed interpretation. Workstation ID: [id number] Up-to-date CT equipment and radiation dose reduction techniques were employed. CTDIvol: 14.7 mGy. DLP: 672 mGy-cm. The following accession numbers are related to this dose report [id number]: [id number] Up-to-date CT equipment and radiation dose reduction techniques were employed. CTDIvol: 14.7 mGy. DLP: 672 mGy-cm.The following accession numbers are related to this dose report [id number]: [id number] ECG ECG: not available on admission Assessment [...] Hypertension Past Surgical History: Procedure Laterality Date MA EXCIS CERV DISK,ONE LEVEL N/A History of Laminectomy With Disc Removal MA TOTAL ABDOM HYSTERECTOMY N/A History of Hysterectomy [...] med. workup and need for admit) and UKE DRIVER (to review case and request evaluation). ED [...] spine dated 03/09/2024. This region is inadequately as sessed on the present study. Recommend clinical correlation [...] and they recommended weightbearing as tolerated [HK] 1909 Urinalysis W/Reflex to Microscopic & Culture(!) [HK] 1910 WBC, Urine(!): 10 [HK] 210 Although the pain has improved, continues to have left hip pain. Will give home dose of 5 mg of oxycodone as she waits for CAT scan [HK] 2314 Patient tried to ambulate. However had significant [...] Fermin Hawkins MD Carlene Rose : 1940 CSN: [id number] Fermin Hawkins MD 04/19/24 1358 documented in [...] mobility. Referral placed in care[facility] and [facility]. Supports, HCP, Designated Caregiver, Guardian: Deborah Rosario Daughter [phone] Initial Discharge Planning: D/c home with care [...] Hypertension Past Surgical History: Procedure Laterality Date MA EXCIS CERV DISK,ONE LEVEL N/A History of Laminectomy With Disc Removal MA TOTAL ABDOM HYSTERECTOMY N/A History of Hysterectomy [...] without a brace Row Name 04/19/24 1314 Network Contractor Services Network Contractor Needed No Row Name 04/19/24 1314 Living [...] Hearing Hearing Status WFL Row Name 04/19/24 131 Cognitive Assessment/Intervention Follows Commands/Answers Questions (Cognitive) able to follow multi-step instructions Row Name 04/19/24 131 Sensory Assessment (Somatosensory) Sensory Assessment (Somatosensory) other [...] (Numbers Scale) rest;position adjusted Row Name 04/19/24 131 General UE Assessment Upper Extremity: Range of Motion LUE ROM was WFL;RUE ROM was WFL Row [facility] 04/19/24 131 General LE Assessment Lower Extremity: Range of Motion LLE ROM was WFL;RLE ROM was WFL [facility] Name 04/19/24 131 MMT (Manual Muscle Testing) Additional Documentation no upper extremity strength deficits identified;lower extremity strength deficits identified [facility] 04/19/24 131 MMT: Lower Extremity Lower Extremity: Manual Muscle Testing right LE strength is WFL;other (see comments) LLE grossly 3-5/, limited due to pain Row [facility] 04/19/24 131 Muscle Tone Assessment Left-Side Extremities Muscle Tone Assessment no abnormal tone noted Right-Side Extremities Muscle Tone Assessment no abnormal tone noted [facility] Name 04/19/24 131 Motor Coordination Assessment/Training Gross Motor Skills Impairments Detail WFL [facility] 04/19/24 131 Balance Assessments Balance Assessments Static Sitting Balance;Dynamic Sitting Balance;Static Standing Balance;Dynamic Standing Balance [facility] 04/19/24 131 Static Sitting Balance Static Sitting Position sitting, edge of bed;unsupported Static Sitting Assistance Independent [facility] 04/19/24 131 Dynamic Sitting Balance Dynamic Sitting Position sitting, edge of bed;unsupported Dynamic Sitting Assistance Independent [facility] 04/19/24 131 Static Standing Balance Static Standing Assistance Supervision Static Standing Assistive Devices gait belt;walker, rolling Row Name 04/19/241313 Dynamic Standing Balance Dynamic Standing Assistance Supervision Dynamic Standing Assistive Devices gait belt;walker,rolling Row Name 04/19/241313 Bed Mobility Assessment/Treatment Assistive Device (Bed Mobility) none Tikaqg-in-Juo Brokaw (Bed Mobility) modified independence Comment (Bed Mobility) Increase time and pain, pt reports she has been sleeping on the couch which has been more comfortable for her than the bed Row Name 04/19/241313 Transfer Assessment/Treatment Sit-Stand Brokaw level (Transfers) supervision required Stand-Sit Brokaw level(Transfers) supervision required Ead-Uafxv-Kaz Assistive Device (Transfers) gait belt;walker, rolling Comment (Transfers) Cues for hand placement, education provided on purchasing commode over toilet Row Name 04/19/241313 Gait Assessment/Treatment Brokaw (Gait) supervision required Assistive Device (Gait) gait belt;walker, rolling Distance in Feet (Gait) x50' Gait Pattern Analysis swing-to gait Gait Deviations rosalba, decreased;shuffle;stance time, decreased, left Comment (Gait) Pt educated on small step length to decrease LLE weightbearing. C/o increased pain, but no LOB noted Row Name 04/19/241313 Stairs Assessment/Treatment Number of Stairs (Stairs) 4 Handrail Location (Stairs) left side (ascending) Brokaw (Stairs) contact guard assist Assistive Device (Stairs) [...] % CMS G Code Modifier:Current status (G8978) CJ Standardized T-Scale Score 50.25 Row Name 04/19/241313 [...] 1, PT) sit to supine/supine to sit Brokaw Level/Cues Needed (Bed Mobility Goal 1, PT) independent Assitive Devices (Bed Mobility Goal 1, PT) none Time Frame (Bed Mobility Goal 1, PT) by discharge Row Name 04/19/24 1300 Static Standing Balance Goal (PT) Base of Support (Static Standing Balance Goal, PT) normal base Brokaw Level (Static Standing Balance Goal, PT) modified independence Assistive Devices (Static Standing Balance Goal, PT) walker, rolling Upper Extremity Support (Static Standing Balance Goal, PT) two upper extremities Time Frame (Static Standing Balance Goal, PT) by discharge Row Name 04/19/24 1300 Dynamic Standing Balance Goal (PT) Activity (Dynamic Standing Balance Goal, PT) change direction Brokaw Level (Dynamic Standing Balance Goal, PT) modified independence Assistive Devices (Dynamic Standing Balance Goal, PT) walker, rolling Strategies (Dynamic Standing Balance Goal, PT) effective Time Frame (Dynamic Standing Balance Goal, PT) by discharge Row Name 04/19/24 1300 Transfer Goal 1 (PT) Activity (Transfer Goal 1, PT) utb-cd-ypjrj/wrrnt-hk-oxh;feu-gb-wwsqp/hdppm-ft-rja Brokaw Level/Cues Needed (Transfer Goal 1, PT) modified independence Assitive Devices (Transfer Goal 1, PT) walker, rolling Time Frame (Transfer Goal 1, PT) by discharge Row Name 04/19/24 1300 Gait Training Goal 1 (PT) Activity (Gait Training Goal 1, PT) gait (walking locomotion) Brokaw Level (Gait Training Goal 1, PT) modified independence Assistive Devices (Gait Training Goal 1, PT) walker, rolling Distance (Gait Goal 1, PT) x100' Time Frame (Gait Training Goal 1, PT) by discharge Row Name 04/19/24 1300 Stairs Goal 1 (PT) Activity (Stairs Goal 1, PT) ascending stairs;descending stairs Brokaw Level/Cues Needed (Stairs Goal 1, PT) modified [...] PT) by discharge Row Name 04/19/24 1300 Group Home Goal (PT) Statement (Transitions Rn Care Coordinator Goal, PT) indep community mobility Brokaw Level (Group Home Goal, PT) independent Time Frame (Transitions Rn Care Coordinator Goal, PT) 4 weeks [facility] PT Licensure: [place]: [address] * Plan of Care - Emily Moe [...] Work status: Retired. Living situation: Lives in [place] Pre-injury ambulation status: Walks with a cane. Extended Emergency Contact Information Primary Emergency Contact: Deborah Rosario [facility] Relation: Daughter Family History: Denies [...] note. Ricky Redding MD PGY-3 Orthopaedic Surgery [facility]: #[id number] for Consults, #[phone] for Primary Patients [facility]: #[id number] for Consults/Inpatient Cosigned by Perry Kennedy MD [...] Description 05/17/2024 11:00 AM EST Office Visit [facility] [address] [place] [address] Water Treatment Plant Supervisor: Marcia Orlando MD [address] [place] [address] Yesica Mi PA [address] [place] [address] 07/11/2024 3:20 PM EDT Follow-Up [facility] A [address] [place] [address] Piero Hilton MD [address] [place] [address] documented as of this encounter Procedures * Due to [place] state law, this organization might not be [...] this encounter Results * Due to [place] state law, this organization might not be [...] obtain the completed interpretation. ? Workstation ID: [id number] Narrative 04/19/2024 5:26 AM EST COMPARISON: CT lumbar spine 04/18/2024. ??Lumbar spine MRI 04/03/2024. FINDINGS AND Resulting Agency Comment [id number] Procedure Note Clem Holguin, DO - 04/19/2024 COMPARISON: CT lumbar spine 04/18/2024. Lumbar spine MRI 04/03/2024. FINDINGS AND IMPRESSION: The bones are diffusely demineralized. Unchanged dextroconvex scoliosisof the lumbar spine and advanced multilevel degenerative changes ascharacterized on prior MRI. Unchanged degenerative grade 1anterolisthesis at L4-L5. Chronic compression deformity of the Y5bwuvgdfom body. Unchanged subacute sacral insufficiency fractures. If this radiology report contains a blank impression section, it is anincomplete radiology report. Please contact the interpreting radiologistor applicable radiology division as soon as possible to obtain thecompleted interpretation. Workstation ID: [id number] us Elvis Tran MD IMG XR PROCEDURES [...] obtain the completed interpretation. ? Workstation ID: [id number] Up-to-date CT equipment and radiation dose reduction techniques were employed. CTDIvol: 14.7 mGy. DLP: 672 mGy-cm. ??The following accession numbers are related to this dose report [id number]: [id number] Up-to-date CT equipment and radiation dose reduction techniques were employed. CTDIvol: 14.7 mGy. DLP: 672 mGy-cm. ??The following accession numbers are related to this dose report [id number]: [id number] Narrative 04/18/2024 10:15 PM EST COMPARISON: 03/09/2024. [...] described sacral insufficiency fractures. Resulting Agency Comment [id number] Procedure Note Harpreet Estrada MD - 04/18/2024 [...] possible to obtain thecompleted interpretation. Workstation ID: [id number] Up-to-date CT equipment and radiation dose reduction techniques wereemployed. CTDIvol: 14.7 mGy. DLP: 672 mGy-cm. The following accessionnumbers are related to this dose report [id number]: [id number] Up-to-date CT equipment and radiation dose reduction techniques wereemployed. CTDIvol: 14.7 mGy. DLP: 672 mGy-cm. The following accessionnumbers are related to this dose report [id number]: [id number] Fermin Hawkins MD [facility] [place] [place] CT PROCEDURES Final Result * CT Abd [...] obtain the completed interpretation. ? Workstation ID: [id number] Up-to-date CT equipment and radiation dose reduction techniques were employed. CTDIvol: 14.7 mGy. DLP: 672 mGy-cm. ??The following accession numbers are related to this dose report [id number]: [id number] Up-to-date CT equipment and radiation dose reduction techniques were employed. CTDIvol: 14.7 mGy. DLP: 672 mGy-cm. ??The following accession numbers are related to this dose report [id number]: [id number] Narrative 04/18/2024 10:15 PM EST COMPARISON: 03/09/2024. [...] described sacral insufficiency fractures. Resulting Agency Comment [id number] Procedure Note Harpreet Estrada MD - 04/18/2024 [...] possible to obtain thecompleted interpretation. Workstation ID: [id number] Up-to-date CT equipment and radiation dose reduction techniques wereemployed. CTDIvol: 14.7 mGy. DLP: 672 mGy-cm. The following accessionnumbers are related to this dose report [id number]: [id number] Up-to-date CT equipment and radiation dose reduction techniques wereemployed. CTDIvol: 14.7 mGy. DLP: 672 mGy-cm. The following accessionnumbers are related to this dose report [id number]: [id number] Fermin Hawkins MD IMG CT PROCEDURES Final Result * Urine Culture, Routine (04/18/2024 6:43 PM EST) Culture Mixed genital carmelita isolated. These superficial bacteria are not indicative of a urinary tract infection. No further organism identification is warranted on this specimen. 04/20/2024 1:03 AM EST [facility] Urine Urine specimen collection, clean catch / Unknown Non-Blood Collection / Unknown 04/18/2024 6:43 PM EST 04/18/2024 7:02 PM EST [facility] JACKSON - 04/20/2024 1:03 AM EST [facility] Received Date: MICRO NUMBER: [id number] SPECIMEN QUALITY: Adequate SOURCE: URINE CLEAN CATCH STATUS: FINAL If clinically indicated, recollect clean-catch, mid-stream urine and transfer immediately to Urine Culture Transport Tube. Elvis Tran MD LAB MICROBIOLOGY - GENERAL ORDERABLES Final Result [facility] [address], [place] [address], [place] [phone] [facility] [address], [place] [address], [place] [phone] * [place] Top, Urine (04/18/2024 6:43 PM EST) Pathologist [facility] Extra Tube Hold for add-ons. 04/18/2024 11:05 PM EST [facility] Comment:Auto resulted. Urine Urine specimen collection, clean catch / Unknown Non-Blood Collection / Unknown 04/18/2024 6:43 PM EST 04/18/2024 6:43 PM EST us Fermin Hawkins MD LAB URINE ORDERABLES Final Resul t [facility] [address] [place] [address], [place] * (ABNORMAL) Urinalysis W/Reflex to Microscopic & Culture (04/18/2024 6:43 PM EST) Pathologist [facility] Color, Urine Yellow Colorless, Light Yellow, Yellow, Dark Yellow 04/18/2024 7:03 PM EST [facility] Clarity, Urine Slightly Cloudy(A) Clear 04/18/2024 7:03 PM EST [facility] Specific Egan, Urine 1.025 1.005 - 1.030 04/18/2024 7:03 PM EST [facility] pH, Urine 5.0 4.6 - 8.0 04/18/2024 7:03 PM EST [facility] Protein, Urine Negative Negative 04/18/2024 7:03 PM EST [facility] Glucose, Urine Negative Negative 04/18/2024 7:03 PM EST [facility] Ketones, Urine Negative Negative 04/18/2024 7:03 PM EST [facility] Bilirubin, Urine Negative Negative 04/18/2024 7:03 PM EST [facility] Blood, Urine Negative Negative 04/18/2024 7:03 PM EST [facility] Nitrite, Urine Negative Negative 04/18/2024 7:03 PM EST [facility] Urobilinogen, Urine Positive(A) Normal 04/18/2024 7:03 PM EST [facility] Leukocyte Esterase, Urine 1+(A) Negative 04/18/2024 7:03 PM EST [facility] WBC, Urine 10(H) 0 - 2 /HPF 04/18/2024 7:03 PM EST [facility] RBC, Urine 2 0 - 2 /HPF 04/18/2024 7:03 PM EST [facility] Hyaline Casts, Urine 2 0 - 2 /LPF 04/18/2024 7:03 PM EST [facility] Squamous Epithelial Cells, Urine 4 /HPF 04/18/2024 7:03 PM EST [facility] Bacteria, Urine Rare(A) None /HPF /HPF 04/18/2024 7:03 PM EST [facility] Mucus, Urine Rare /LPF 04/18/2024 7:03 PM EST [facility] Urine Urine specimen collection, clean catch / Unknown Non-Blood Collection / Unknown 04/18/2024 6:43 PM EST 04/18/2024 6:43 PM EST us Fermin Hawkins MD LAB URINE ORDERABLES Final Resul t [facility] [address] [place] [address], * (ABNORMAL) Comprehensive Metabolic Panel (If age > 70) (04/18/2024 12:18 PM EST) NA 138 135 - 145 mmol/L 04/18/2024 1:35 PM EST [facility] K 4.2 3.5 - 5.3 mmol/L 04/18/2024 1:35 PM EST [facility] Cl 107 98 - 107 mmol/L 04/18/2024 1:35 PM EST [facility] CO2 19(L) 22 - 32 mmol/L 04/18/2024 1:35 PM [facility] Anion Gap 12 5 - 15 04/18/2024 1:35 PM [facility] Glucose 99 65 - 99 mg/dL 04/18/2024 1:35 PM [facility] Creatinine 0.89 0.50 - 1.20 mg/dL 04/18/2024 1:35 PM [facility] Calcium 9.3 8.6 - 10.5 mg/dL 04/18/2024 1:35 PM [facility] Total Protein 6.8 6.0 - 8.0 g/dL 04/18/2024 1:35 PM [facility] Albumin 3.8 3.5 - 5.2 g/dL 04/18/2024 1:35 PM [facility] Bilirubin, Total 0.5 0.2 - 1.2 mg/dL 04/18/2024 1:35 PM [facility] Alkaline Phosphatase 181(H) 35 - 129 U/L 04/18/2024 1:35 PM [facility] AST 25 10 - 40 U/L 04/18/2024 1:35 PM [facility] ALT 9(L) 10 - 40 U/L 04/18/2024 1:35 PM [facility] BUN 24(H) 7 - 23 mg/dL 04/18/2024 1:35 PM [facility] eGFR 64 >=60 mL/min/1. 73m2 04/18/2024 1:35 PM [facility] Comment:The estimated glomer ular [...] - 4.2 g/dL 04/18/2024 1:35 PM EST [facility] A/G Ratio 1.3(L) 1.5 - 3.0 04/18/2024 1:35 PM EST [facility] Blood Structure of peripheral vein / Unknown Venipuncture / Unknown 04/18/2024 12:18 PM EST 04/18/2024 12:33 PM EST us Fermin Hawkins MD LAB BLOOD ORDERABLES Final Resul t Performing Organization Address City/State/[facility] Co de Phone Number [facility] [address] [place] [address], [place] * (ABNORMAL) CBC Auto Differential (04/18/2024 12:18 PM EST) WBC 9.0 3.8 - 10.8 10*3/uL 04/18/2024 12:40 PM EST [facility] RBC 4.45 3.80 - 5.10 10*6/uL 04/18/2024 12:40 PM EST [facility] Hemoglobin 12.7 11.7 - 15.5 g/dL 04/18/2024 12:40 PM EST [facility] Hematocrit 38.4 35.0 - 45.0 % 04/18/2024 12:40 PM EST [facility] MCV 86.3 80.0 - 100.0 fL 04/18/2024 12:40 PM EST [facility] MCH 28.5 27.0 - 33.0 pg 04/18/2024 12:40 PM EST [facility] MCHC 33.1 32.0 - 36.0 g/dL 04/18/2024 12:40 PM EST [facility] RDW 14.0 11.0 - 15.0 % 04/18/2024 12:40 PM [facility] Platelets 219 140 - 400 10*3/uL 04/18/2024 12:40 PM [facility] MPV 8.9 7.5 - 12.5 fL 04/18/2024 12:40 PM [facility] Neutrophil % 69.1 % 04/18/2024 12:40 PM [facility] Immature Grans % 0.4 0.0 - 0.9 % 04/18/2024 12:40 PM [facility] Lymphocyte % 18.8 % 04/18/2024 12:40 PM [facility] Monocyte % 8.3 % 04/18/2024 12:40 PM [facility] Eosinophil % 2.8 % 04/18/2024 12:40 PM EST [facility] Basophil % 0.6 % 04/18/2024 12:40 PM [facility] Neutrophil # 6.21 1.50 - 7.80 10*3/uL 04/18/2024 12:40 PM [facility] Immature Grans # 0.04(H) <=0.03 10*3/uL 04/18/2024 12:40 PM EST [facility] Lymphocyte # 1.70 0.85 - 3.90 10*3/uL 04/18/2024 12:40 PM [facility] LAB[facility] Monocyte # 0.80 0.20 - 0.95 10*3/uL 04/18/2024 12:40 PM [facility] Eosinophil # 0.30 0.02 - 0.50 10*3/uL 04/18/2024 12:40 PM EST [facility] Basophil # 0.10 0.00 - 0.20 10*3/uL 04/18/2024 12:40 PM EST [facility] nRBC % 0.0 /100 WBCs 04/18/2024 12:40 PM EST [facility] nRBC # <0.01 <0.01 10*3/uL 04/18/2024 12:40 PM EST [facility] Blood Structure of peripheral vein / Unknown Venipuncture / Unknown 04/18/2024 12:18 PM EST 04/18/2024 12:33 PM EST us Fermin Hawkins MD LAB BLOOD ORDERABLES Final Resul t Performing Organization Address City/State/[facility] Co de Phone Number [facility] [address] [place] [address], documented in this encounter Visit Diagnoses Diagnosis [...] on Mon04/19/24 at 0313, Until Mon04/19/24 at 171 sodium chloride 0.9% flush 2.5-10 mL 2.5-10 [...] if ordered as part of multi-modal therapy. 0564 (Given - Provid er: Rocio Allison RN)1125 (Given - Provider: Emily Moe, DOUG) cefTRIAXone (ROCEPHIN) injection 1 g (COMPLETED) 1 g, intravenous, Administer over 3 Minutes, Once, On Sushila 04/18/24 at 1915, 1 dose, Dilute 1 g with 10 mL of sterile water for injection. Administer over 3-5 minutes., Reason for Therapy: Bacterial Infection Suspected, Indication: Urinary Tract Infection 1930 (Given - Provider: Yosvany De Paz RN) enoxaparin (LOVENOX) subcutaneous injection 40 mg 40 [...] 1 dose 1903 (Given - Provider: Yosvany DeP az RN) lidocaine (LIDODERM) 5% patch 1 patch (COMPLETED) 1 patch, topical, Administer over 12 Hours, Once, On Sushila 04/18/24 at 1855, 1 dose, Apply to left lower back. Leg - area of pain . 1903 (Patch Applied - Provider: Yosvany De Paz RN) 07 (Patch Removed - Provider: Emily Moe, DOUG) losartan (COZAAR) tablet 50 mg 50 mg, [...] section. 0800 (Given - Provid er: Emily Meo RN) verapamiL (CALAN) tablet 80 mg 80 [...] 1715 0839 (Given - Provid er: Emily oMe RN)1439 (Given - Provider: Emily Moe RN) naloxone (NARCAN) injection 0.4 mg 0.4 mg, intravenous, Every 2 hour PRN, opioid reversal, respiratory depression, Starting on Mon04/19/24 at 0315, Until Mon04/19/24 at 1714, Complete opioid reversal for respiratory rate less than 10 (POSS greater than 2 or RASS less than 0). Notify LIP if naloxone is administered to evaluate the patient to determine if additional naloxone doses are needed and to reevaluate the patient's opioid orders. naloxone 0.04 mg injection 0.04 mg, intravenous, Every 3 minutes as needed, opioid reversal, respiratory depression, Starting on Mon04/19/24 at 031, Until Mon04/19/24 at 1714, Partial opioid reversal for respiratory rate less [...] on Mon04/19/24 at 0315, Until Mon04/19/24 at 171, Assess pain, sedation, and respiratory rate prior to each opioid administration. Or oxyCODONE IR (ROXICODONE) tablet 5 mgJump to med 5 mg, oral, Every 6 hours PRN, Severe pain or 7-10 (on the numeric pain scale), Starting on Mon04/19/24 at 0315, Until Mon04/19/24 at 1715, Assess pain, sedation, and respiratory rate prior to each opioid administration. documented in this encounter Care Teams Him Tech Relationship Specialty Start Date End Date Vale Walls [address] [place] [address] PCP - General Nurse Practitioner 03/08/24 documented as of this encounter
--- OUTSIDE RECORDS SUMMARY | 2024-05-15 10:21 | XMS_ITS | Encounter Summary ---
Author Organization [facility] Address [address] [place] [address] Care Team Providers Care Metal Sash Setter Name Role Phone Shreyas Orellana MD Primary Care Provider UnavailAshanti Smith MD Primary Care Provider Shreyas Orellana MD Primary Care Provider UnavailAshanti Smith MD Primary Care Provider [phone] Vale Walls NP Primary Care Provider Chastity Cortes MD Unavailable Vale Walls NP Unavailable Encounter Details Date Type Department Care Team (Late st Contact Info) Description 10/04/2016 Orders Only July Internal Medicine [address] [place] [phone] Shreyas Orellana MD Social History Tobacco Use [...] this encounter Procedures * Due to [place] [employer] law, this organization might not be sharing negative HIV tests. Procedure Name Priority Date/Time Associated Diagnosis Comments BASIC METABOLIC PANEL WITH (GFR) Routine 10/04/2016 1:41 PM EDT Hypokalemia documented in this encounter Results * Due to [place] [employer] law, this organization might not be sharing [...] approximately 13% higher for people identified as -Malian. GFR 63 > OR = 60 mL/min/1. [...] needs for GFR calculation. Resulting Agency Comment [id number] Shreyas Orellana MD LABORATORY Final Result [facility] [address] [place] [address] documented in this encounter Visit Diagnoses Diagnosis Hypokalemia Hypopotassemia documented in this encounter Additional Health Concerns Infection Onset Date Last Indicated Resolved Time COVID-19 Confirmed 07/11/2019 07/11/2019 0 8:12 PM EDT documented as of this encounter Care Teams Metal Sash Setter Relationship Specialty Start Date End Date Shreyas Orellana MD PCP - General Internal Medicine 09/02/15 07/07/19 Ashanti Kumar MD PCP - General Family Medicine 07/08/19 07/09/19 Shreyas Orellana MD PCP - General Internal Medicine 07/10/19 09/06/19 Ashanti Kumar MD PCP - General Family Medicine 09/07/19 07/12/20 Vale Walls NP [address] [place] [address] PCP - General Geriatrics 07/13/20 Chastity Cortes MD [address] [place] [address] PCP - Backup PCP Geriatrics 10/23/20 03/30/21 Vale Walls NP [address] [place] [address] PCP - Backup PCP Geriatrics 10/06/21 documented as of this encounter
--- OUTSIDE RECORDS SUMMARY | 2024-05-15 10:21 | XMS_ITS | Encounter Summary ---
Author Organization [facility] Address [address] [place] [address] Care Team Providers Care Spooling Machine Operator Name Role Phone Alison Francis MD Primary Care Provider [phone] Alison Francis MD Primary Care Provider [phone] Shreyas Orellana MD Primary Care Provider UnavailAshanti Smith MD Primary Care Provider [phone] Shreyas Orellana MD Primary Care Provider UnavailAshanti Smith MD Primary Care Provider Vale Walls THERMAL TECHNICIAN Primary Care Provider Chastity Cortes MD Unavailable Vale Walls THERMAL TECHNICIAN Unavailable Encounter Details Date Type Department Care Team (Late st Contact Info) Description 08/15/2008 Orders Only May Internal Medicine [address] [place] [phone] Alison Francis MD [address] [place] [address] [phone] Social History Tobacco Use Types Packs/Day Years [...] this encounter Procedures * Due to [place] [employer] law, this organization might not be sharing [...] this encounter Results * Due to [place] [employer] law, this organization might not be sharing negative HIV tests. * MAGNESIUM (08/15/2008) MAGNESIUM 2.0 1.5 - 2.5 MG/DL 08/15/2008 08/15/2008 5:5 3 PM EDT Alison Francis MD LABORATORY Final Result * VITAMIN B12 (08/15/2008) VITB12 457 200 - 1100 PG/ML 08/15/2008 08/15/2008 5:5 3 PM EDT Result [facility] us Alison Francis MD LABORATORY Final Result [...] 08/15/2008 08/15/2008 5:5 3 PM EDT Result [facility] us Alison Francis MD LABORATORY Final Result * T4, FREE THYROXINE (08/15/2008) FT4 1.2 0.8 - 1.8 NG/DL 08/15/2008 08/15/2008 5:5 3 PM EDT Result [facility] us Alison Francis MD LABORATORY Final Result * TSH (THYROTROPIN) (08/15/2008) TSH, THYROTROPIN 2.63 0.40 - 4.50 UIU/ML 08/15/2008 08/15/2008 5:5 3 PM EDT Result [facility] us Alison Francis MD LABORATORY Final Result * ALANINE AMINOTRANSFERASE (ALT), SERUM (08/15/2008) ALT (SGPT) 23 6 - 40 U/L 08/15/2008 08/15/2008 5:5 3 PM EDT Result [facility] us Alison Francis MD LAB SAME [...] (ABNORMAL) CARDIAC RISK/LIPID PROFILE I (08/15/2008) Pathologist [facility] CHOLESTEROL, TOTAL 238(H) 125 - 200 MG/DL [...] documented as of this encounter Care Teams Spooling Machine Operator Relationship Specialty Start Date End [...] Family Medicine 09/07/19 07/12/20 Vale Walls NP [address] [place] [address] PCP - General Geriatrics 07/13/20 Chastity Cortes MD [address] [place] [address] PCP - Backup PCP Geriatrics 10/23/20 03/30/21 Vale Walls NP [address] [place] [address] PCP - Backup PCP Geriatrics 10/06/21 documented as of this encounter
--- OUTSIDE RECORDS SUMMARY | 2024-05-15 10:21 | XMS_ITS | Encounter Summary ---
Author Organization [facility] Address [address] [place] [address] Care Team Providers Care Asphalt Coater Name Role Phone Vale Walls Primary Care Provider [phone] Encounter Details Date Type Department Care Team (Late st Contact Info) Description 04/18/2024 Telephone [facility] Spine Health [address] [place], [place] [phone] Holli Fenton PA [address] [place] [address] Social History Tobacco Use Types Packs/Day Years [...] PM EST documented as of this encounter Miscellaneous Notes [...] please call patient's daughter, in severe pain Deborah [phone] Carlene is in severe pain, asking for medication until injection on Monday Or should she go to ER documented in this encounter Plan of Treatment Upcoming Encounters Date Type Department Care Team (Late st Contact Info) Description 05/17/2024 11:00 AM EST Office Visit [facility] [address] [place] [address] Captain Room Service: Marcia Orlando MD [address] [place] [address] Yesica Mi PA [address] [place] [address] 07/11/2024 3:20 PM EDT Follow-Up [facility] A [address] [place] [address] Piero Hilton MD [address] [place] [address] documented as of this encounter Visit Diagnoses Not on filedocumented in this encounter Care Teams Asphalt Coater Relationship Specialty Start Date End Date Vale Walls [address] [place] [address] PCP - General Nurse Practitioner 03/08/24 documented as of this encounter
--- OUTSIDE RECORDS SUMMARY | 2024-05-15 10:21 | XMS_ITS | Encounter Summary ---
Author Organization [facility] Address [address] [place] [address] Care Team Providers Care Social Media Coordinator Name Role Phone Alison Francis MD Primary Care Provider Shreyas Orellana MD Primary Care Provider UnavailAshanti Smith MD Primary Care Provider Shreyas Orellana MD Primary Care Provider UnavailAshanti Smith MD Primary Care Provider Vale Walls LINE REPAIRER Primary Care Provider Chastity Cortes MD Unavailable Vale Walls LINE REPAIRER Unavailable Encounter Details Date Type Department Care Team (Late st Contact Info) Description 07/13/2015 Orders Only July Internal Medicine [address] [place] [address] Alison Francis MD [address] [place] [address] Social History Tobacco Use Types Packs/Day Years [...] encounter Procedures * Due to [place] [employer] law, this organization might not be sharing negative HIV tests. Procedure Name Priority Date/Time Associated Diagnosis Comments POTASSIUM, SERUM Routine 07/13/2015 10:5 1 AM EDT Low serum potassium level documented in this encounter Results * Due to [place] [employer] law, this organization might not be sharing negative HIV tests. * POTASSIUM, SERUM (07/13/2015 10:51 AM EDT) Potassium 4.6 3.5 - 5.3 mmol/L [facility] Comment:{POTASSIUM {[id number]) 07/13/2015 10:5 1 AM EDT 07/13/2015 5:29 PM EDT Narrative Resulting Agency Comment [id number] Alison Francis MD LAB SAME DAY RESULT Final Resul t Performing Organization Address City/State/[facility] Co de Phone Number [facility] [address] [place] [address] documented in this encounter Visit Diagnoses Diagnosis Low serum potassium level documented in this encounter Additional Health Concerns Infection Onset Date Last Indicated Resolved Time COVID-19 Confirmed 07/11/2019 07/11/2019 0 8:12 PM EDT documented as of this encounter Care Teams Social Media Coordinator Relationship Specialty Start Date End Date Alison Francis MD PCP - General 03/20/10 09/01/15 Shreyas Orellana MD PCP - General Internal Medicine 09/02/15 07/07/19 Ashanti Kumar MD PCP - General Family Medicine 07/08/19 07/09/19 Shreyas Orellana MD PCP - General Internal Medicine 07/10/19 09/06/19 Ashanti Kumar MD PCP - General Family Medicine 09/07/19 07/12/20 Vale Walls NP [address] [place] [address] PCP - General Geriatrics 07/13/20 Chastity Cortes MD [address] [place] [address] PCP - Backup PCP Geriatrics 10/23/20 03/30/21 Vale Walls NP [address] [place] [address] PCP - Backup PCP Geriatrics 10/06/21 documented as of this encounter
--- OUTSIDE RECORDS SUMMARY | 2024-05-15 10:21 | XMS_ITS | Encounter Summary ---
Author Organization [facility] Address [address] [place] [address] Care Team Providers Care Cork Slabs Sawyer Name Role Phone Alison Francis MD Primary Care Provider Alison Francis MD Primary Care Provider [phone] Shreyas Orellana MD Primary Care Provider UnavailAshanti Smith MD Primary Care Provider [phone] Shreyas Orellana MD Primary Care Provider UnavailAshanti Smith MD Primary Care Provider Vale Walls GROUP SALES COORDINATOR Primary Care Provider Chastity Cortes MD Unavailable Vale Walls GROUP SALES COORDINATOR Unavailable [phone] Encounter Details Date Type Department Care Team (Late st Contact Info) Description 02/23/2009 Orders Only May Internal Medicine [address] [place] [phone] Alison Francis MD [address] [place] [address] [phone] Social History Tobacco Use Types Packs/Day Years [...] this encounter Procedures * Due to [place] state law, [...] LABORATORY Final Result Performing Organization Address City/State/[facility] Co de Phone Number [facility] [address] [place] [address] * TSH (THYROTROPIN) (02/23/2009) TSH, THYROTROPIN 1.45 0.40 - 4.50 UIU/ML [facility] 02/23/2009 02/23/2009 8:1 6 PM EST Alison Francis MD LABORATORY Final Result [facility] [address] [place] [address] * CBC 5 PART DIFF (02/23/2009) WHITE [...] RESULT Final Resul t [facility] [address] [place] [address] * BASIC METABOLIC PANEL W/GLOMERULAR FILTRATION RATE [...] MD LABORATORY Final Result Performing Organization Address [facility] Co de Phone Number [facility] [address] [place] [address] * (ABNORMAL) LIPID PANEL + CARDIAC RISK [...] MD LABORATORY Final Result Performing Organization Address [facility] Co de Phone Number [facility] [address] [place] [address] documented in this encounter Visit Diagnoses Diagnosis Myalgia and myositis Mylagia and myositis, unspecified Hyperlipidemia; LDL Goal < 130 Other and unspecified hyperlipidemia Hypertension Unspecified essential hypertension Back pain Backache, unspecified documented in this encounter Additional Health Concerns Infection Onset Date Last Indicated Resolved Time COVID-19 Confirmed 07/11/2019 07/11/2019 0 8:12 PM EDT documented as of this encounter Care Teams Cork Slabs Sawyer Relationship Specialty Start Date End Date Alison [...] Family Medicine 09/07/19 07/12/20 Vale Walls NP [address] [place] [address] PCP - General Geriatrics 07/13/20 Chastity Cortes MD [address] [place] [address] PCP - Backup PCP Geriatrics 10/23/20 03/30/21 Vale Walls NP [address] [place] [address] PCP - Backup PCP Geriatrics 10/06/21 documented as of this encounter
--- OUTSIDE RECORDS SUMMARY | 2024-05-15 10:21 | XMS_ITS | Encounter Summary ---
Author Organization [facility] Address [address] [place] [address] Care Team Providers Care Br[employer] Tube Bender Name Role Phone Shreyas Orellana MD Primary Care Provider UnavailAshanti Smith MD Primary Care Provider Shreyas Orellana MD Primary Care Provider UnavailAshanti Smith MD Primary Care Provider Vale Walls NP Primary Care Provider Chastity Cortes MD Unavailable [phone] Vale Walls NP Unavailable [phone] Encounter Details Date Type Department Care Team (Late st Contact Info) Description 08/18/2016 Orders Only July Internal Medicine [address] [place] [phone] Shreyas Orellana MD Social History Tobacco Use [...] 25-OH, Total 16(L) 30 - 100 ng/mL [facility] Comment: Vitamin D Status ? 25-OH Vitamin D: Deficiency: ?<20 ng/mL Insufficiency: ? 20 - 29 ng/mL Optimal: ? > or = 30 ng/mL For 25-OH Vitamin D testing on patients on D2-supplementation and patients for whom quantitation of D2 and D3 fractions is required, the QuestAssureD(TM) 25-OH VIT D, (D2,D3), LC/MS/MS is recommended: order code 71908 (patients >2yrs). For more information on this test, go to: http://education.[employer]/faq/KNQ200 (This link is being provided for informational/educational purposes only.) 08/30/2016 10:4 1 AM EDT 08/30/2016 2:54 PM EDT Narrative Resulting Agency Comment [id number] Shreyas Orellana MD LABORATORY Final Result [email or web address] [address] [place] [address] * (ABNORMAL) BASIC METABOLIC PANEL WITH (GFR) (08/30/2016 10:41 AM EDT) Glucose 111(H) 65 - 99 mg/dL [facility] Comment: ? Fasting reference interval For someone [...] 13% higher for people identified as -[place]. GFR 41(L) > OR = 60 mL/min/1. [...] needs for GFR calculation. Resulting Agency Comment [id number] Shreyas Orellana MD LABORATORY Final Result [facility] [address] [place] [address] * (ABNORMAL) LIPID PANEL WITH REFLEX TO [...] 2:54 PM EDT Narrative Resulting Agency Comment [id number] Shreyas Orellana MD LABORATORY Final Result [facility] [address] [place] [address] documented in this encounter Visit Diagnoses Diagnosis [...] documented as of this encounter Care Teams [employer] Tube Bender Relationship Specialty Start Date End Date Shreyas Orellana MD PCP - General Internal Medicine 09/02/15 07/07/19 Ashanti Kumar MD PCP - General Family Medicine 07/08/19 07/09/19 Shreyas Orellana MD PCP - General Internal Medicine 07/10/19 09/06/19 Ashanti Kumar MD PCP - General Family Medicine 09/07/19 07/12/20 Vale Walls NP [address] [place] [address] PCP - General Geriatrics 07/13/20 Chastity Cortes MD [address] [place] [address] PCP - Backup PCP Geriatrics 10/23/20 03/30/21 Vale Walls NP [address] [place] [address] PCP - Backup PCP Geriatrics 10/06/21 documented as of this encounter
--- OUTSIDE RECORDS SUMMARY | 2024-05-15 10:21 | XMS_ITS | Encounter Summary ---
Author Organization [facility] Address [address] [place] [address] Care Team Providers Care Lineman Apprentice Name Role Phone Vale Walls Primary Care Provider [phone] Encounter Details Date Type Department Care Team (Latest Contact Info) Description 04/22/2024 8:07 AM EST - 04/22/2024 11:59 PM EST Hospital Encounter [facility] XRay [address] [place] [address] Piero Hilton MD [address] [place] [address] Pain Discharge Disposition: Home or Self Care [...] PM EST documented as of this encounter Medications at [...] Description 05/17/2024 11:00 AM EST Office Visit [facility] [address] [place] [address] Thermo Processor: Marcia Orlando MD [address] [place] [address] Yesica Mi PA [address] [place] [address] [phone] 07/11/2024 3:20 PM EDT Follow-Up [facility] A [address] [place] [address] Piero Hilton MD [address] [place] [address] documented as of this encounter Procedures * Due to [place] [employer] law, this organization might not be sharing negative HIV tests. Procedure Name Priority Date/Time Associated Diagnosis Comments FL C-ARM INJECTION NON-REPORTABLE Routine 04/22/2024 12:19 PM EST Pain documented in this encounter Results * Due to [place] [employer] law, this organization might not be sharing [...] pain documented in this encounter Care Teams Lineman Apprentice Relationship Specialty Start Date End Date Vale Walls [address] [place] [address] PCP - General Nurse Practitioner 03/08/24 documented as of this encounter
--- OUTSIDE RECORDS SUMMARY | 2024-05-15 10:21 | XMS_ITS | Encounter Summary ---
Author Organization [facility] Address [address] [place] [address] Care Team Providers Care Director Labor Standards Name Role Phone Alison Francis MD Primary Care Provider [phone] Alison Francis MD Primary Care Provider [phone] Shreyas Orellana MD Primary Care Provider UnavailAshanti Smith MD Primary Care Provider [phone] Shreyas Orellana MD Primary Care Provider UnavailAshanti Smith MD Primary Care Provider Vale Walls ANTIQUE COLLECTOR Primary Care Provider Chastity Cortes MD Unavailable Vale Walls ANTIQUE COLLECTOR Unavailable [phone] Encounter Details Date Type Department Care Team (Late st Contact Info) Description 09/12/2008 Orders Only May Internal Medicine [address] [place] [phone] Alison Francis MD [address] [place] [address] [phone] Social History Tobacco Use Types Packs/Day Years [...] as of this encounter Care Teams Director Labor Standards Relationship Specialty Start Date End Date Alison [...] Family Medicine 09/07/19 07/12/20 Vale Walls NP [address] [place] [address] PCP - General Geriatrics 07/13/20 Chastity Cortes MD [address] [place] [address] PCP - Backup PCP Geriatrics 10/23/20 03/30/21 Vale Walls NP [address] [place] [address] PCP - Backup PCP Geriatrics 10/06/21 documented as of this encounter
--- OUTSIDE RECORDS SUMMARY | 2024-05-15 10:21 | XMS_ITS | Encounter Summary ---
Author Organization [facility] Address [address] [place] [address] Care Team Providers Care Environmental Services Worker Name Role Phone Vale Walls Primary Care Provider [phone] Reason for Visit * Reason Comments Injections * Consultation (Routine) - Authorized Specialty Diagnoses / Procedures Referred By Contac t Referred To Contact Orthopaedic Surgery Diagnoses Radiculopathy of lumbar region Holli Fenton PA [address] [place] [address] Phone: tel: fax: Piero Hilton MD [address] [place] [address] Phone: tel: fax: Referral ID Status Reason Start Date Expiration Date V isits Requested Visits Authorized [id number] Authorized 04/12/2024 10/12/2025 6 6 Encounter Details Date Type Department Care Team (Latest Contact Info) Description 04/22/2024 8:07 AM EST - 04/22/2024 11:59 PM EST Hospital Encounter [facility] [address] [place] [address] Piero Hilton MD [address] [place] [address] Radiculopathy of lumbar region (Primary Dx) Discharge [...] During Business Hours 8am-4pm Scheduling concerns - [phone] Clinical concerns - [phone] After normal business hours - If you [...] Patient's understanding of procedure matches consent: Yes [place] Protocol: Procedure consent matches procedure scheduled: Yes [...] outpatient to the ambulatory injection suite at [facility]. Vital signs were monitored before and [...] discharged from clinic in stable condition. Carlene De Leonaj : 1940 [facility]: [id number] documented in this encounter Plan of Treatment Upcoming Encounters Date Type Department Care Team (Late st Contact Info) Description 05/17/2024 11:00 AM EST Office Visit [facility] Rhe[facility]ology [facility] [address] [place] [address] Chlorine Cell Tender: Marcia Orlando MD [address] [place] [address] Yesica Mi PA [address] [place] [address] 07/11/2024 3:20 PM EDT Follow-Up [facility] [address] [place] [address] Piero Hilton MD [address] [place] [address] documented as of this encounter Procedures * Due to [place] state law, this organization might not be sharing negative HIV tests. Procedure Name Priority Date/Time Associated Diagnosis Comments ME NJX DX/THER SBST INTRLMNR LMBR/SAC W/IMG GDN Routine 04/22/2024 8:30 AM EST Radiculopathy of lumbar region documented in this encounter Results * Due to [place] [employer] law, this organization might not be sharing negative HIV tests. * ME NJX DX/THER SBST INTRLMNR LMBR/SAC W/IMG GDN [...] Patient's understanding of procedure matches consent: Yes [place] Protocol: ? Procedure consent matches procedure scheduled: [...] outpatient to the ambulatory injection suite at [facility]. ? Vital signs were monitored before [...] on Mon04/22/24 at 0830, 1 dose, Until 04/22/24 at 0830Indications:Radiculopathy of lumbar region Given 04/22/2024 8:30 AM EST 80 mg documented in this encounter Care Teams Environmental Services Worker Relationship Specialty Start Date End Date Sarah Wallsrina [address] [place] [address] PCP - General Nurse Practitioner 03/08/24 documented as of this encounter
--- OUTSIDE RECORDS SUMMARY | 2024-05-15 10:21 | XMS_ITS | Encounter Summary ---
Author Organization [facility] Address [address] [place] [address] Care Team Providers Care [employer] Director Name Role Phone Alison Francis MD Primary Care Provider Alison Francis MD Primary Care Provider [phone] Shreyas Orellana MD Primary Care Provider UnavailAshanti Smith MD Primary Care Provider Shreyas Orellana MD Primary Care Provider UnavailAshanti Smith MD Primary Care Provider Vale Walls IRRIGATION EQUIPMENT REMOVER Primary Care Provider [phone] Chastity Cortes MD Unavailable [phone] Vale Walls IRRIGATION EQUIPMENT REMOVER Unavailable Encounter Details Date Type Department Care Team (Late st Contact Info) Description 02/15/2010 Orders Only May Internal Medicine [address] [place] [phone] Alison Francis MD [address] [place] [address] [phone] Social History Tobacco Use Types Packs/Day Years [...] this encounter Procedures * Due to [place] [employer] law, this organization might not be sharing [...] this encounter Results * Due to [place] [employer] law, this organization might not be sharing [...] Final Result Performing Organization Address [facility] Co de Phone Number [facility] [address] [place] [address] * T4, FREE THYROXINE (02/15/2010) FT4 1.07 0.8 - 1.8 NG/DL [facility] 02/15/2010 02/15/2010 6:0 8 PM EST us Alison Francis MD LABORATORY Final Result Performing Organization Address [facility] Co de Phone Number [facility] [address] [place] [address] * TSH (THYROTROPIN) (02/15/2010) TSH, THYROTROPIN 1.730 0.40 - 4.50 UIU/ML [facility] 02/15/2010 02/15/2010 6:0 8 PM EST us Alison Francis MD LABORATORY Final Result Performing Organization Address [facility] Co de Phone Number [facility] [address] [place] [address] * ASPARTATE AMINOTRANSFERASE (AST), SERUM (02/15/2010) AST (SGOT) 22 10 - 35 U/L [facility] 02/15/2010 02/15/2010 6:0 8 PM EST us Alison Francis MD LAB SAME DAY RESULT Final Resul t Performing Organization Address [facility] de Phone Number [facility] [address] [place] [address] * ALANINE AMINOTRANSFERASE (ALT), SERUM (02/15/2010) ALT (SGPT) 20 6 - 40 U/L [facility] 02/15/2010 02/15/2010 6:0 8 PM EST us Alison Francis MD LAB SAME DAY RESULT Final Resul t Performing Organization Address [facility] de Phone Number [facility] [address] [place] [address] * (ABNORMAL) LIPID PANEL + CARDIAC RISK WITH REFLEX TO LDL DIRECT (02/15/2010) Pathologist [facility] CHOLESTEROL, TOTAL 212(H) 125 - 200 MG/DL [...] Final Result Performing Organization Address [facility] Co de Phone Number [facility] [address] [place] [address] * (ABNORMAL) BASIC METABOLIC PANEL W/GLOMERULAR FILTRATION [...] MD LABORATORY Final Result Performing Organization Address City/State/[facility] Co de Phone Number [facility] [address] [place] [address] * CBC 5 PART DIFF (02/15/2010) WHITE [...] Resul t Performing Organization Address [facility] de Phone Number [facility] [address] [place] [address] * VITAMIN B12 (02/15/2010) VITB12 352 200 - 1100 PG/ML [facility] 02/15/2010 02/15/2010 6:0 8 PM EST us Alison Francis MD LABORATORY Final Result Performing Organization Address [facility] de Phone Number [facility] [address] [place] [address] documented in this encounter Visit Diagnoses Diagnosis [...] documented as of this encounter Care Teams School Of Nursing Director Relationship Specialty Start Date End Date Alison [...] Medicine 09/07/19 07/12/20 Vale Walls NP [address] [place] [address] PCP - General Geriatrics 07/13/20 Chastity Cortes MD [address] [place] [address] PCP - Backup PCP Geriatrics 10/23/20 03/30/21 Vale Walls NP [address] [place] [address] PCP - Backup PCP Geriatrics 10/06/21 documented as of this encounter
[2024-05-30 12:17] VITALS: BMI 26.6
--- NOTE | 2024-06-10 | ECG_ITS ---
Test Reason : PRE OP Blood Pressure : */* mmHG Vent. Rate : 74 BPM Atrial Rate : 74 BPM P-R Int : 152 ms QRS Dur : 78 ms QT Int : 386 ms P-R-T Axes : 47 -15 35 degrees QTcB Int : 428 ms Normal sinus rhythm Minimal voltage criteria for LVH, may be normal variant ( R in aVL ) Borderline ECG When compared with ECG of 10-Jun-2024 09:11, No significant change was found Referred By: Generic ED Physician Electronically Signed By: AGUSTIN ALBERT MD
[2024-06-10 09:03] LABS: Hematocrit 38.5 % (37.0-47.0); Hemoglobin 12.6 g/dl (12.0-16.0); Mean Corpuscular HGB Conc 32.7 g/dl (31.0-35.0); Mean Corpuscular Hemoglobin 28.3 pg (27.0-33.0); Mean Corpuscular Volume 86.5 fL (80.0-98.0); Mean Platelet Volume 8.3 fL (9.4-12.3); Platelet Count 242 X10*3/uL (160-400); Red Blood Count 4.45 X10*6/uL (4.20-5.50); Red Cell Distribution Width 13.7 % (11.0-16.0); White Blood Count 9.9 X10*3/uL (4.8-10.8)
[2024-06-10 09:37] LABS: Alanine Aminotransferase 14 U/L (0-31); Albumin Level 3.7 g/dL (3.5-5.0); Alkaline Phosphatase 105 U/L (39-117); Anion Gap 11 (12-20); Aspartate Amino Transferase 29 U/L (5-31); Bilirubin Total 0.4 mg/dL (0.0-1.0); Blood Urea Nitrogen 23 mg/dL (9-16); Calcium 9.1 mg/dL (8.4-10.2); Carbon Dioxide 21 mmol/L (22-29); Chloride 109 mmol/L (96-108); Creatinine Clr Calc Pharmacy 42.1; Estimated Glomerular Filt Rate 57; Glucose Random 97 mg/dL (60-115); Sodium 137 mmol/L (135-145)
--- NOTE | 2024-06-12 10:43 | P.CONAN_ITS ---
Documented by User: Bonnie Murphy NP 06/12/24 10:43 HPI - Anesthesia Eval Consult details Narrative: 83yo F for Left L4-5 Laminotomy PMFSH Active Problems Active Problems: All Active Problems Pre-op evaluation (Acute) Scoliosis of lumbar region due to degenerative disease of spine in adult (Acute) Past Medical History Medical History Forgetfulness Back pain Arthritis HTN (hypertension) Surgical History Surgical History H/O colonoscopy Hx of cataract extraction Hx of hysterectomy History of lumbar surgery Social History Social History Household Members Other:: daughter Are you a primary health care liaison to a significant other at home: No Do you presently have visiting nurse or other home services: No Comment: currently using walker due to back pain, normally does not need Patient Tobacco Use Status: Never used Tobacco Use of substances other than those prescribed or required for medical reasons: No Have you been hit, kicked, punched, or otherwise hurt by someone within the past year? If so, by whom?: No Spiritual Healthcare Practices: none Yazidism Healthcare Practices: Congregational Cultural Healthcare Practices: none Are you DNR?: No Advance Directives Information Provided: Yes (as above noted) Advance Directives on File: No Recently lost weight without trying: Yes How much weight loss: 2-13 pounds Eating poorly because of decreased appetite: Yes Nutrition screen score: 4 Nutrition Risks: Surgical patient >75years FDLMP: n/a Poor oral hygiene: No (upper full denture-advised no Fixodent, etc. DOS) Meds Allergies Allergy/AdvReac Type Severity Reaction Status Date / Time No Known Allergies Allergy Verified 06/13/24 09:37 Home Medications ?Medication ?Instructions ?Recorded ?Confirmed ?Last Taken ?Type calcium 600 mg (as 1 tab PO DAILY 05/30/24 05/30/24 Unknown History carbonate)-vitamin D3 5 mcg (200 unit) tablet cetirizine 10 mg tablet 5 mg PO DAILY 05/30/24 05/30/24 Unknown History cholecalciferol (vitamin D3) 50 50 mcg PO DAILY 05/30/24 05/30/24 Unknown History mcg (2,000 unit) capsule cyanocobalamin (vitamin B-12) 1,000 mcg PO DAILY 05/30/24 05/30/24 Unknown History 1,000 mcg tablet (Vitamin B-12) donepezil 5 mg tablet 5 mg PO BEDTIME 05/30/24 05/30/24 Unknown History losartan 25 mg tablet 25 mg PO QAM 05/30/24 05/30/24 Unknown History oxycodone 5 mg tablet 2.5 mg PO BID PRN severe pain 05/30/24 05/30/24 Unknown History pramipexole 0.25 mg tablet 0.25 mg PO BEDTIME 05/30/24 06/13/24 06/13/24 History quetiapine 25 mg tablet 25 mg PO BEDTIME 05/30/24 05/30/24 Unknown History verapamil 80 mg tablet 80 mg PO BID 05/30/24 06/13/24 06/13/24 History omeprazole 20 mg capsule,delayed 20 mg PO DAILY 06/10/24 06/10/24 Unknown History release Exam Height,Weight and Vital Signs: Height 5 ft 4 in Weight 70.307 kg Pertinent Lab Results Pertinent Lab Results: Laboratory Tests 06/10/24 08:55 WBC 9.9 RBC 4.45 Hgb 12.6 Hct 38.5 MCV 86.5 MCH 28.3 MCHC 32.7 RDW 13.7 Plt Count 242 MPV 8.3 L Absolute Nucleated RBC 0.000 Nucleated RBC % (auto) 0.0 Sodium 137 Potassium 4.0 Chloride 109 H Carbon Dioxide 21 L Anion Gap 11 L BUN 23 H Creatinine 0.94 Estim Creat Clear Calc 42.1 Estimated GFR 57 Random Glucose 97 Calcium 9.1 Total Bilirubin 0.4 AST 29 ALT 14 Alkaline Phosphatase 105 Total Protein 7.0 Albumin 3.7 Narrative Narrative: EKG 05/2024 Vent. Rate : 74 BPM Atrial Rate : 74 BPM P-R Int : 152 ms QRS Dur : 78 ms QT Int : 386 ms P-R-T Axes : 47 -15 35 degrees QTcB Int : 428 ms Normal sinus rhythm Minimal voltage criteria for LVH, may be normal variant ( R in aVL ) Borderline ECG When compared with ECG of 10-Jun-2024 09:11, No significant change was found Assessment and Plan Assessment Anesthesia Assessment: Chart Reviewed Documented by User: Sheldon Rodriguez MD 06/13/24 11:35 PMF Past Medical History Medical History Forgetfulness Back pain Arthritis HTN (hypertension) Family History Family history of problems with anesthesia: No Surgical History Surgical History H/O colonoscopy Hx of cataract extraction Hx of hysterectomy History of lumbar surgery History of Problems with Anesthesia: No Social History Social History Household Members Other:: daughter Are you a primary health care liaison to a significant other at home: No Do you presently have visiting nurse or other home services: No Comment: currently using walker due to back pain, normally does not need Patient Tobacco Use Status: Never used Tobacco Use of substances other than those prescribed or required for medical reasons: No Have you been hit, kicked, punched, or otherwise hurt by someone within the past year? If so, by whom?: No Spiritual Healthcare Practices: none Yazidism Healthcare Practices: Congregational Cultural Healthcare Practices: none Are you DNR?: No Advance Directives Information Provided: Yes (as above noted) Advance Directives on File: No Recently lost weight without trying: Yes How much weight loss: 2-13 pounds Eating poorly because of decreased appetite: Yes Nutrition screen score: 4 Nutrition Risks: Surgical patient >75years FDLMP: n/a Poor oral hygiene: No (upper full denture-advised no Fixodent, etc. DOS) Meds Allergies Allergy/AdvReac Type Severity Reaction Status Date / Time No Known Allergies Allergy Verified 06/13/24 09:37 Home Medications ?Medication ?Instructions ?Recorded ?Confirmed ?Last Taken ?Type calcium 600 mg (as 1 tab PO DAILY 05/30/24 05/30/24 Unknown History carbonate)-vitamin D3 5 mcg (200 unit) tablet cetirizine 10 mg tablet 5 mg PO DAILY 05/30/24 05/30/24 Unknown History cholecalciferol (vitamin D3) 50 50 mcg PO DAILY 05/30/24 05/30/24 Unknown History mcg (2,000 unit) capsule cyanocobalamin (vitamin B-12) 1,000 mcg PO DAILY 05/30/24 05/30/24 Unknown History 1,000 mcg tablet (Vitamin B-12) donepezil 5 mg tablet 5 mg PO BEDTIME 05/30/24 05/30/24 Unknown History losartan 25 mg tablet 25 mg PO QAM 05/30/24 05/30/24 Unknown History oxycodone 5 mg tablet 2.5 mg PO BID PRN severe pain 05/30/24 05/30/24 Unknown History pramipexole 0.25 mg tablet 0.25 mg PO BEDTIME 05/30/24 06/13/24 06/13/24 History quetiapine 25 mg tablet 25 mg PO BEDTIME 05/30/24 05/30/24 Unknown History verapamil 80 mg tablet 80 mg PO BID 05/30/24 06/13/24 06/13/24 History omeprazole 20 mg capsule,delayed 20 mg PO DAILY 06/10/24 06/10/24 Unknown History release Exam Airway Mallampati Class: II TM Dist: >3cm Neck ROM: Full Assessment and Plan Assessment Anesthesia Assessment: Anesthesia Plan Discussed Final Anesthetic Review Family History of Problems with Anesthesia: No History of Problems with Anesthesia: No NPO: Yes Final Preanesthetic Review: No Changes in Pt Med Stat, Meds/Allgs Chart Reviewed, Consent Obtained/Reviewed and Anes Risks/Benef Reviewed Patient Risk: Low Procedure Risk: Low Anesthetic Plan Anesthetic Plan: GA Disposition: Standard PACU
[2024-06-13] VITALS (7 sets, daily range): BP systolic 123–150; BP diastolic 52–64; PULSE 80–99; RESP 14–20; TEMP 36.6–36.9; O2SAT 97–100
--- NOTE | ~2024-06-13 | FL_ITS ---
EXAMINATION: FL GUIDANCE ONLY HISTORY: L4-5 Laminotomy Left COMPARISON: Correlation is made with plain films of the lumbar spine dated 05/10/2024. TECHNIQUE: Fluoroscopy time: Less than 1 minute. Cumulative Dose: 5.01 mGy. DAP: 1.36 mGym2 Images: 1. FINDINGS: A single fluoroscopic spot film of the lumbar spine in the lateral projection demonstrates a probe directed toward the L4 vertebral body from a posterior approach. FL/FL guidance in OR IMPRESSION: Fluoroscopy during procedure. Please see procedure report for additional information. Electronically signed by: Chalino Lentz MD 06/13/2024 01:07 PM EDT
--- NOTE | 2024-06-13 09:36 | MHC.SHP ---
Pre-Procedural Eval Section A - 24 Hr Update-Section A only Date of Service: 06/13/24 The patient is an INPATIENT: No Section B - Complete if H&P > 30 days Chief Complaint: Other secondary scoliosis, lumbar region Details of Present Illness: Left lumbar radiculopathy Allergies: Allergies Allergy/AdvReac Type Severity Reaction Status Date / Time No Known Allergies Allergy Verified 05/10/24 09:00 Review of Systems Sugical H&P ROS: Negative: Constitution, Cardiovascular, Respiratory, Neurological, Psychiatric, Hem-Onc, Allergic/Immunologic, Gastrointestinal, Genitourinary, Musculoskeletal, Integumentary, Endocrine and Eyes/Ears/Nose/Throat Exam Surgical H&P Exam: Normal: HEENT, Normal: Heart, Normal: Lungs, Normal: Extremities, Normal: Abdomen, Normal: Skin and Normal: Neurological (Awake, alert) Plan Diagnosis/Plan: Unchanged I have reviewed the history and physical and performed a pertinent physical examination on my patient. No changes have occurred unless specified. Left L4-5 decompression/randy laminotomy Time Spent With Patient Time: Total time managing care of this patient today _5___ minutes.
[2024-06-13] MEDS: Lactated Ringers 1,000 ML 100 ML IVCONT (09:42)
[2024-06-13] MEDS: methocarbamoL 750 MG TABLET PO (10:06)
[2024-06-13] MEDS: Gabapentin 300 MG CAPSULE PO (10:06)
--- NOTE | 2024-06-13 13:16 | P.DS_ITS ---
DS: Providers Provider Date of Service: 06/13/24 Date of discharge: 06/13/24 Primary care physician: Unknown Physician DS: Summary Time Attestation Discharge Coordination Time (in mins): 12 Quality: Safe Use of Opioids Does Pt have an Active Cancer Diagnosis on the Problem List?: No Quality: Stroke Does the patient have a stroke diagnosis?: No Physical Exam Vital Signs: Vital Signs: Last Vital Signs Temp 98.5 F 06/13/24 09:39 Pulse 80 06/13/24 09:39 Resp 14 06/13/24 09:39 BP 149/55 H 06/13/24 09:39 Pulse Ox 100 06/13/24 09:39 O2 Del Method Room Air 06/13/24 09:39 BMI result Body Mass Index 26.6 Discharge Plan Discharge Patient Disposition: Home, Self-Care Referrals: Physician,Unknown J [Primary Care Provider] - 1 Week Discharge Medications: New tramadol 50 mg tablet 50 mg PO Q6H PRN (Reason: pain) Qty: 30 0RF Continued quetiapine 25 mg tablet 25 mg PO BEDTIME donepezil 5 mg tablet 5 mg PO BEDTIME cetirizine 10 mg tablet 5 mg PO DAILY losartan 25 mg tablet 25 mg PO QAM pramipexole 0.25 mg tablet 0.25 mg PO BEDTIME verapamil 80 mg tablet 80 mg PO BID oxycodone 5 mg tablet 2.5 mg PO BID PRN (Reason: severe pain) cholecalciferol (vitamin D3) 50 mcg (2,000 unit) capsule 50 mcg PO DAILY cyanocobalamin (vitamin B-12) [Vitamin B-12] 1,000 mcg Tablet 1,000 mcg PO DAILY calcium carbonate-vitamin D3 600 mg-5 mcg (200 unit) Tablet 1 tab PO DAILY omeprazole 20 mg Capsule,Delayed Release(Dr/Ec) 20 mg PO DAILY Discharge Orders: Discharge Order (Routine); Ordered 06/13/24 Ordered By: Quentin Lomeli Diet: Advance to usual diet Activity on Discharge: As tolerated Activity Restrictions/Additional Instructions: After your spinal surgery we ask you to observe the following restrictions/guidelines: Activity: It is normal to feel some discomfort as you increase your activity, but that will improve with time. We ask you avoid heavy lifting or acitivities that cause pain. As a general rule, 8lbs is a safe limit for lifting right after surgery. Walk as much as you feel comfortable but not to exhaustion. You will feel extra tired the first few days after surgery. Stay well hydrated. It is OK to walk up and down stairs You may return to driving when you are off narcotics (such as vicodin, oxycodone, dilaudid, etc), and you are back to normal functional capacity. If you have any concerns please check with office before driving. Return to work is specific to each patient and each surgery, so please speak with your doctor/PA at first follow up. Please bring paperwork such as FMLA at that time if you need it filled out. Medications: We recommend you take 1,000mg Tylenol every 8 hours for the first few weeks after surgery, if you do not have any liver issues and can tolerate this medication. Do not exceed 4,000mg daily. We will give you a short supply of narcotics after surgery (usually one weeks worth). If you need more please call the office but do not use more than prescribed. You will need to give our office 48 hours notice if you need narcotics refilled and we do not fill narcotics on weekends or evenings. If you are on a narcotic, it is a good idea to take a stool softener such as colace or senna to avoid constipation If you take blood thinner such as aspirin, Plavix, Coumadin, Effient, Eliquis etc for conditions such as Afib, DVT, Pulmonary embolus, coronary disease, stents etc please speak with your surgeon about specific details as to when you can resume these medications. You can resume NSAIDs on post op day 1 (eg: Motrin, Naproxen, etc). Follow up: Please call the office, , after surgery to arrange a 3 we ek follow up for wound check. Wound Care: You may remove your dressing on the first day after surgery. ?You may ?leave open to air. Please do not remove the steri strips underneath. they will fall off on their own in one week. IT IS NORMAL FOR THE WOUND TO OOZE OR BE BLOODY FOR A FEW DAYS AFTER SURGERY. ?IF THIS HAPPENS JUST PLACE NEW DRESSING OVER IT TO AVOID STAINING CLOTHES. You may shower on post op day # 1 We ask that you do not let the water soak the wound. If it does get wet, just towel dry lightly. Please do not scrub your incision or place any type of chemical/ointment on the wound. No tub baths, pools or jacuzzis for one month. If you have any leaking or redness from your wound, or fevers, please call the office. Print Language: Chinese
--- NOTE | 2024-06-13 13:32 | P.OP_ITS ---
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 I have explained the nature, purpose and benefits of the operation. I have discussed the risks and benefit of the operation including possible complications or adverse events with patient/family. Alternative(s) were discussed with the patient with their relative benefits and risks as well as the consequences of not accepting the operation were included in obtaining consent. Surgeon: ÁNGEL SERRANO MD, PHD Procedure Assisted By: Quentin Corbin Description of Procedure This 83-year-old female suffering from severe left lumbar radiculopathy. MRI reveals an L4-5 spondylolisthesis and associated spinal stenosis especially on the left side with a large amount of flavum ligament hypertrophy and medial facet hypertrophy.. The patient was offered a decompression. The procedure complications were explained. The patient was consented. The patient was brought to the operating room and endotracheally intubated. The patient was turned in prone position on the Nixon frame. Prep and drape was done followed by timeout. The Physician virtual assistant for advertisers provided access. A mid lumbar incision was made followed by release of the paravertebral muscle on the left side to expose the L4-5 lamina and facet joints. An intraoperative x-ray was obtained to confirm the correct level. The microscope was brought in. I took over the procedure. The high-speed drill was used to do a L4-5 laminotomy until flavum ligament was reached. A #2 Kerrison was used to expand the laminotomy near flush to the pedicles and to include a partial facetectomy. The spondylolisthesis was palp ated. Severely hypertrophied flavum ligament was resected after which the L5 nerve root became visible. The L5 nerve root had a abnormal anatomy and was dilated over the trajectory. However no mass could be palpated so I am not sure a for a dealing with a schwannoma or just an abnormal dilation of the nerve root. The bottom line is that we decompressed the nerve root over his whole trajectory as planned. A long nerve hook could be easily passed along the medial side of the pedicle as a sign of adequate decompression. The microscope was removed. Hemostasis was done. The physician virtual assistant for advertisers close the Incision in 2 layers. Steri-Strips were used to approximate incision. An OpSite with Tegaderm was used to cover the incision. All sponge needle counts were correct. Patient was extubated and transported in stable is to recovery room. Anesthesia: General Estimated Blood Loss (ml): 30 mL Complications: None Duration of Surgery: Under 60 Minutes Postoperative Plan: Discharge to home
== END 2024-06-13 14:43 | disposition home or self-care (01) ==
PROVIDERS: Visit Provider Neurological Surgery
PROC: (CPT 63047; principal; 2024-06-13 12:00)
DX: M48.061 Spinal stenosis, lumbar region without neurogenic claudication (principal); M51.16 Intervertebral disc disorders with radiculopathy, lumbar region; M41.56 Other secondary scoliosis, lumbar region
CPT/HCPCS: 63047; 36415; 80053; 85027; 93005; J0131; J0690; J1100; J2003; J2371; J2405; J2704; J3010

== ENCOUNTER → 2024-06-13 08:08 | Outpatient (BNV) | payer MEDICARE, MEDICAID, SELFPAY | PROVIDERS: Visit Provider Physician Assistant | DX: M48.062 Spinal stenosis, lumbar region with neurogenic claudication (principal) | CPT/HCPCS: 63047; 99499 ==

== ENCOUNTER 2024-07-05 11:09 | Outpatient (AMB) | payer MEDICARE, MEDICAID, SELFPAY ==
--- NOTE | 2024-07-05 11:23 | A.SPINEOV_ITS ---
Intake Visit Reasons: 1st post op Intake Note: Ms. Rose is here today for her 1st post op. Motorbike Courier Required: No Allergies No Known Allergies Allergy (Verified 07/05/24 11:24) Assessment & Plan Assessment & Plan (1) Scoliosis of lumbar region due to degenerative disease of spine in adult: Code(s): M41.56 - Other secondary scoliosis, lumbar region Category: Medical Plan Mrs Rose is 3 weeks out from her left L4-5 hemilaminotomy and decompression. Her left leg pain is gone. She is still experiencing some back pain. She has been using the pain medication help with that. She was asking today about burning in her feet which she has had for years, particularly worse at night. I told her it sounds a lot like neuropathy, but that she should have her primary care physician look into that. Her wound is healed up beautifully and she is standing up straight on her own. We discussed activity guidelines, restrictions and expectations after lumbar laminotomy. She does not need any therapy or any follow-up at this point she can just continue on with life without any specific restrictions. Long Au MD, PhD [facility] Medications: Refilled tramadol 50 mg PO Q6H PRN 30 tabs 0RF pain Coding Level of Care Code Global (74346) Diagnoses Scoliosis of lumbar region due to degenerative disease of spine in adult M41.56
--- OUTSIDE RECORDS SUMMARY | 2024-07-05 12:14 | XMS_ITS | Encounter Summary ---
Author Organization [facility] Address [address] [place] [address] Care Team Providers Care Aircraft Detail Draftsperson Name Role Phone Vale Walls NP Primary Care Provider [phone] Vale Walls SENIOR RUBY DEVELOPER Unavailable [phone] Encounter Details Date Type Department Care Team ([facility] Contact Info) Description 11/14/2022 Orders Only [facility] [address] [place] [address] Vale Walls SENIOR RUBY DEVELOPER [address] [place], [place] [id number] Social History Tobacco Use Types Packs/Day Years [...] Start Date Job End Date 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 Procedure Name Priority Date/Time Associated Diagnosis Comments VITAMIN B12 (CYANOCOBALAMIN), SERUM Routine 11/14/2022 10:50 AM EDT Vitamin B12 deficiency VITAMIN D, 25-HYDROXY, TOTAL, IMMUNOASSAY Routine 11/14/2022 10:50 AM EDT Vitamin D Defiency documented in this encounter Results * Due to [place] VSoft law, this organization might not be sharing [...] D2 and D3 fractions is required, the QuestAssureD() 25-OH VIT D, (D2,D3), LC/MS/MS is recommended: order code 55049 (patients >2yrs). See Note 1 Note 1 For additional information, please refer to http://education.MeterHero/faq/OAM067 (This link is being provided for informational/ educational purposes only.) 11/14/2022 10:5 0 AM EDT 11/14/2022 10:58 PM EDT Narrative Resulting Agency Comment [id number] us Vale Walls SENIOR RUBY DEVELOPER LABORATORY Final Resul t Performing Organization Address City/[facility] Co de Phone Number [facility] [address] [place] [address] * (ABNORMAL) VITAMIN B12 (CYANOCOBALAMIN), SERUM (11/14/2022 10:50 AM EDT) Vitamin B12 (Cobalamins) 1197(H) 200 - 1100 pg/mL [facility] 11/14/2022 10:5 0 AM EDT 11/14/2022 10:58 PM EDT Narrative Resulting Agency Comment [id number] Vale Walls SENIOR RUBY DEVELOPER LABORATORY Final Resul t Performing Organization Address [facility] de Phone Number [facility] [address] [place] [address] documented in this encounter Visit Diagnoses Diagnosis Vitamin B12 deficiency Other B-complex deficiencies Vitamin D Defiency documented in this encounter Care Teams Aircraft Detail Draftsperson Relationship Specialty Start Date End Date Vale Walls NP [address] [place] [address] PCP - General Geriatrics 07/13/20 Vale Walls NP [address] [place] [address] PCP - Backup PCP Geriatrics 10/06/21 documented as of this encounter
--- OUTSIDE RECORDS SUMMARY | 2024-07-05 12:14 | XMS_ITS | Encounter Summary ---
Author Organization [facility] Address [address] [place] [address] Care Team Providers Care Auto Tune Up Mechanic Name Role Phone Alison Francis MD Primary Care Provider [phone] Alison Francis MD Primary Care Provider [phone] Regan Darling MD Primary Care Provider [phone] Shreyas Orellana MD Primary Care Provider Unavaila Ashanti Shetty MD Primary Care Provider [phone] Shreyas Orellana MD Primary Care Provider UnavailAshanti Smith MD Primary Care Provider [phone] Vale Walls MEDICAL SALES ASSOCIATE Primary Care Provider [phone] Chastity Cortes MD Unavailable [phone] CouVale badillo MEDICAL SALES ASSOCIATE Unavailable [phone] Encounter Details Date Type Department Care Team (Late st Contact Info) Description 09/26/2005 Orders Only [facility] [address] [place] [phone] Regan Darling MD [address] [place] [address] Social History Tobacco Use Types Packs/Day Years [...] this encounter Procedures * Due to [place] Vringo law, this organization might not be sharing negative HIV tests. Procedure Name Priority Date/Time Associated Diagnosis Comments CHEMISTRY PANEL CP-7 Routine 09/26/2005 10:00 AM EDT Hypertension documented in this encounter Results * Due to [place] Vringo law, this organization might not be sharing negative HIV tests. * (ABNORMAL) CHEMISTRY PANEL CP-7 (09/26/2005 10:00 AM EDT) CALCIUM 9.9 8.5 - 10.4 MG/DL [facility] (CLIA# [id number]) BUN 24 7 - 25 MG/DL [facility] (CLIA# [id number]) CREATININE 0.8 0.5 - 1.2 MG/DL [facility] (CLIA# [id number]) BUN/Creatinine Ratio 30(H) 6 - 25 [facility] (CLIA# [id number]) Glucose 92 65 - 99 MG/DL [facility] (CLIA# [id number]) SODIUM 140 135 - 146 MMOL/L [facility] (CLIA# [id number]) POTASSIUM 3.7 3.5 - 5.3 MMOL/L [facility] (CLIA# [id number]) CHLORIDE 100 98 - 110 MMOL/L [facility] (CLIA# [id number]) CARBON DIOXIDE 25 21 - 33 MMOL/L [facility] (CLIA# [id number]) 09/26/2005 10:0 0 AM EDT 09/26/2005 7:47 PM EDT Regan Darling MD LABORATORY Final Result [facility] (CLIA# [id number]) [address] [place] [address] documented in this encounter Visit Diagnoses Diagnosis Hypertension Unspecified essential hypertension documented in this encounter Additional Health Concerns Infection Onset Date Last Indicated Resolved Time COVID-19 Confirmed 07/11/2019 07/11/2019 0 8:12 PM EDT documented as of this encounter Care Teams Auto Tune Up Mechanic Relationship Specialty Start Date End Date Alison Francis MD PCP - General 03/20/10 09/01/15 Alison Francis MD PCP - General 07/02/07 03/19/10 Regan Darling MD [address] [place] [address] PCP - General 06/11/05 07/01/07 Shreyas Orellana MD [address] [place] [address] PCP - General Internal Medicine 09/02/15 07/07/19 Ashanti Kumar MD [address] [place] [address] PCP - General Family Medicine 07/08/19 07/09/19 Shreyas Orellana MD [address] [place] [address] PCP - General Internal Medicine 07/10/19 09/06/19 Ashanti Kumar MD [address] [place] [address] PCP - General Family Medicine 09/07/19 07/12/20 Vale Walls NP [address] [place] [address] PCP - General Geriatrics 07/13/20 Chastity Cortes MD [address] [place] [address] PCP - Backup PCP Geriatrics 10/23/20 03/30/21 Vale Walls NP [address] [place] [address] PCP - Backup PCP Geriatrics 10/06/21 documented as of this encounter
--- OUTSIDE RECORDS SUMMARY | 2024-07-05 12:14 | XMS_ITS | Encounter Summary ---
Author Organization [facility] Address [address] [place] [address] Care Team Providers Care Ceramic Capacitor Processor Name Role Phone Vale Walls WASTE SALVAGER Primary Care Provider [phone] Vale Walls WASTE SALVAGER Unavailable [phone] Encounter Details Date Type Department Care Team ([facility] st Contact Info) Description 04/11/[address] 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 Author Blood Pressure < 140/90 Blood Pressure 150/74( 025 1:03 PM EDT) No Guzman, Marsha, DELIVERY TECH documented as of this encounter Visit Diagnoses Diagnosis Mood disorder Unspecified episodic mood disorder documented in this encounter Care Teams Ceramic Capacitor Processor Relationship Specialty Start Date End Date Vale Walls NP [address] [place] [address] PCP - General Geriatrics 07/13/20 Vale Walls NP [address] [place] [address] PCP - Backup PCP Geriatrics 10/06/21 documented as of this encounter
--- OUTSIDE RECORDS SUMMARY | 2024-07-05 12:14 | XMS_ITS | Encounter Summary ---
Author Organization [facility] Address [address] [place] [address] Care Team Providers Care Chairman Ceo Name Role Phone Vale Walls NP Primary Care Provider [phone] CouVale badillo HIDE SORTER Unavailable [phone] Encounter Details Date Type Department Care Team ([facility] st Contact Info) Description 04/11/2022 Orders Only 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 Author Blood Pressure < 140/90 Blood Pressure 150/74( 025 1:03 PM EDT) No Marsha Guzman, SAP BASIS ADMINISTRATOR documented as of this encounter Procedures * Due to [place] Yippy law, this organization might not be sharing negative HIV tests. Procedure Name Priority Date/Time Associated Diagnosis Comments EKG-TO BE READ & BILLED BY ADULT OR PEDIATRIC CARDIOLOGY Routine 04/11/2022 11:48 AM EST Nuclear senile cataract of both eyes Hypertension, benign Other hyperlipidemia Arteriosclerosis of aorta Memory loss Seizures Stage 2 chronic kidney disease Situational mixed anxiety and depressive disorder Mood disorder CBC INCLUDES DIFFERENTIAL AND PLATELET COUNT Routine 04/11/2022 10:50 AM EST Preop examination Nuclear senile cataract of both eyes Hypertension, benign Other hyperlipidemia Arteriosclerosis of aorta Memory loss Seizures Stage 2 chronic kidney disease Situational mixed anxiety and depressive disorder Mood disorder BASIC METABOLIC PANEL WITH (GFR) Routine 04/11/2022 10:50 AM EST Preop examination Nuclear senile cataract of both eyes Hypertension, benign Other hyperlipidemia Arteriosclerosis of aorta Memory loss Seizures Stage 2 chronic kidney disease Situational mixed anxiety and depressive disorder Mood disorder documented in this encounter Results * Due to [place] Yippy law, this organization might not be sharing [...] EST 04/12/2022 1:35 PM EST us Gail Manzanareshole HIDE SORTER CARDIOVASCULAR-WITH INBSKT R TG Final Result MUSE [...] 3:37 PM EST Narrative Resulting Agency Comment [id number] Gail Manzanareshole HIDE SORTER LAB SAME DAY RESULT Final Re sult [facility] [address] [facility] [place] [place] [address] * BASIC METABOLIC PANEL WITH (GFR) (04/11/2022 [...] https://www.kidney.org/professionals/ kdoqi/gfr%5Fcalculator BUN/Creatinine Ratio NOT APPLICABLE 6 (calc) [facility] Sodium 138 135 - [...] needs for GFR calculation. Resulting Agency Comment [id number] Gail Barber NP LABORATORY Final Result Performing Organization Address City/State/[facility] Co de Phone Number [facility] [address] [place] [address] documented in this encounter Visit Diagnoses Diagnosis [...] unspecified documented in this encounter Care Teams Chairman Ceo Relationship Specialty Start Date End Date Vale Walls NP [address] [place] [address] PCP - General Geriatrics 07/13/20 Vale Walls NP [address] [place] [address] PCP - Backup PCP Geriatrics 10/06/21 documented as of this encounter
--- OUTSIDE RECORDS SUMMARY | 2024-07-05 12:14 | XMS_ITS | Encounter Summary ---
Author Organization [facility] Address [address] [place] [address] Care Team Providers Care Hop Trainer Name Role Phone Shreyas Orellana MD Primary Care Provider UnavailAshanti Smith MD Primary Care Provider [phone] Shreyas Orellana MD Primary Care Provider UnavailAshanti Smith MD Primary Care Provider Vale Walls NP Primary Care Provider Chastity Cortes MD Unavailable Vale Walls NP Unavailable [phone] Encounter Details Date Type Department Care Team (Late st Contact Info) Description 06/04/2018 Orders Only [facility] [address] [place] [phone] Shreyas Orellana MD Social History Tobacco Use [...] Blood Pressure 150/74( 025 1:03 PM EDT) Marsha Farah CMA documented as of this encounter Visit Diagnoses Diagnosis Injury of ear, initial encounter documented in this encounter Additional Health Concerns Infection Onset Date Last Indicated Resolved Time COVID-19 Confirmed 07/11/2019 07/11/2019 0 8:12 PM EDT documented as of this encounter Care Teams Hop Trainer Relationship Specialty Start Date End Date Shreyas Orellana MD PCP - General Internal Medicine 09/02/15 07/07/19 Ashanti Kumar MD PCP - General Family Medicine 07/08/19 07/09/19 Shreyas Orellana MD PCP - General Internal Medicine 07/10/19 09/06/19 Ashanti Kumar MD PCP - General Family Medicine 09/07/19 07/12/20 Vale Walls NP [address] [place] [address] PCP - General Geriatrics 07/13/20 Chastity Cortes MD [address] [place] [address] PCP - Backup PCP Geriatrics 10/23/20 03/30/21 Vale Walls NP [address] [place] [address] PCP - Backup PCP Geriatrics 10/06/21 documented as of this encounter
--- OUTSIDE RECORDS SUMMARY | 2024-07-05 12:15 | XMS_ITS | Encounter Summary ---
Author Organization [facility] Address [address] [place] [address] Care Team Providers Care Cabin Crew Name Role Phone Alison Francis MD Primary Care Provider Shreyas Orellana MD Primary Care Provider UnavailAshanti Smith MD Primary Care Provider [phone] Shreyas Orellana MD Primary Care Provider UnavailAshanti Smith MD Primary Care Provider Vale Walls HAND KISS SETTER Primary Care Provider Chastity Cortes MD Unavailable [phone] Vale Walls HAND KISS SETTER Unavailable Encounter Details Date Type Department Care Team (Late st Contact Info) Description 12/04/2012 Orders Only [facility] [address] [place] [address] Alison Francis MD [address] [place] [address] Social History Tobacco Use Types Packs/Day Years [...] [place] [facility] 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 Called pt [phone] (home). She is aware. documented in this encounter Plan of Treatment Not on file documented as of this encounter Procedures * Due to [place] Localize Direct law, this organization might not be sharing negative HIV tests. Procedure Name Priority Date/Time Associated Diagnosis Comments EKG-TO BE READ & BILLED BY ADULT OR PEDIATRIC CARDIOLOGY Routine 12/04/2012 2:40 PM EDT Arthralgia SM/STONE CLEANER ANTIBODY Routine 12/04/2012 2:14 PM EDT Arthralgia DNA (DS) ANTIBODY Routine 12/04/2012 2:1 4 PM EDT Arthralgia ZEENAT SCREEN IFA W/REFLEX TO TITER/PATTERN IFA Routine 12/04/2012 2:14 PM EDT Arthralgia documented in this encounter Results * Due to [place] Localize Direct law, this organization might not be sharing [...] INBSKT RTG Final Result Performing Organization Address [facility]/ZIP Co de Phone Number [facility] E[facility] SYSTEM * SM/STONE CLEANER ANTIBODY (12/04/2012 2:14 PM EDT) Wilson extractable nuclear Ab+Ribonucleopr otein extractable nuclear Ab <1.0 NEG <1.0 NEG AI [facility] Comment:{SM/STONE CLEANER ANTIBODY {QL [id number]) 12/04/2012 2:14 PM EDT 12/04/2012 11:10 PM EDT Narrative Resulting Agency Comment [id number] Alison Francis MD LABORATORY Final Result Performing Organization Address [facility] de Phone Number [facility] [address] [place] [address] * (ABNORMAL) DNA (DS) ANTIBODY (12/04/2012 2:14 PM EDT) Dna (DS) Antibody 14(H) IU/mL [facility] Comment: {DNA (DS) ANTIBODY {[id number]) ? IU/mL ? Interpretation ? < or = 4 ?Negative ? 5-9 ? Indeterminate ? > or = 10 ?? Positive 12/04/2012 2:14 PM EDT 12/04/2012 11:10 PM EDT Narrative Resulting Agency Comment [id number] Alison Francis MD LABORATORY Final Result [facility] [address] [place] [address] * ZEENAT SCREEN IFA W/REFLEX TO TITER/PATTERN IFA (12/04/2012 2:14 PM EDT) ZEENAT IFA NEGATIVE NEGATIVE [facility] Comment:{ZEENAT SCREEN, IFA {QL [id number]) 12/04/2012 2:14 PM EDT 12/04/2012 11:10 PM EDT Narrative Resulting Agency Comment [id number] Alison Francis MD LABORATORY Final Result Performing Organization Address City/[facility] Co de Phone Number [facility] [address] [place] [address] documented in this encounter Visit Diagnoses Diagnosis Arthralgia- Primary Pain in joint, site unspecified documented in this encounter Additional Health Concerns Infection Onset Date Last Indicated Resolved Time COVID-19 Confirmed 07/11/2019 07/11/2019 0 8:12 PM EDT documented as of this encounter Care Teams Cabin Crew Relationship Specialty Start Date End Date Alison Francis MD PCP - General 03/20/10 09/01/15 Shreyas Orellana MD PCP - General Internal Medicine 09/02/15 07/07/19 Ashanti Kumar MD PCP - General Family Medicine 07/08/19 07/09/19 Shreyas Orellana MD PCP - General Internal Medicine 07/10/19 09/06/19 Ashanti Kumar MD PCP - General Family Medicine 09/07/19 07/12/20 Vale Walls NP [address] [place] [address] PCP - General Geriatrics 07/13/20 Chastity Cortes MD [address] [place] [address] PCP - Backup PCP Geriatrics 10/23/20 03/30/21 Vale Walls NP [address] [place] [address] PCP - Backup PCP Geriatrics 10/06/21 documented as of this encounter
--- OUTSIDE RECORDS SUMMARY | 2024-07-05 12:15 | XMS_ITS | Encounter Summary ---
Author Organization [facility] Address [address] [place] [address] Care Team Providers Care Combustion Engineer Name Role Phone Vale Walls NP Primary Care Provider [phone] Vale Walls NP Unavailable [phone] Reason for Visit * Reason Comments E-prescribing Refill Request Encounter Details Date Type Department Care Team ([facility] st Contact Info) Description 11/28/2021 Refill [facility] [address] [place] [phone] Vale Walls NP [address] [place], [place] [phone] E-prescribing Refill Request Social History Tobacco Use [...] Start Date Job End Date 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 [phone] Pertinent lab results: No labs suggested for [...] on filedocumented in this encounter Care Teams Combustion Engineer Relationship Specialty Start Date End Date Vale Walls NP [address] [place] [address] PCP - General Geriatrics 07/13/20 Vale Walls NP [address] [place] [address] PCP - Backup PCP Geriatrics 10/06/21 documented as of this encounter
--- OUTSIDE RECORDS SUMMARY | 2024-07-05 12:15 | XMS_ITS | Encounter Summary ---
Author Organization [facility] Address [address] [place] [address] Care Team Providers Care Paste Mixing Supervisor Name Role Phone Alison Francis MD Primary Care Provider Shreyas Orellana MD Primary Care Provider UnavailAshanti Smith MD Primary Care Provider Shreyas Orellana MD Primary Care Provider UnavailAshanti Smith MD Primary Care Provider Vale Walls [employer] Primary Care Provider Chastity Cortes MD Unavailable Vale Walls [employer] Unavailable Encounter Details Date Type Department Care Team (Late st Contact Info) Description 08/28/2013 Orders Only July Internal Medicine [address] [place] [address] Alison Francis MD [address] [place] [id number] Social History Tobacco Use Types Packs/Day Years [...] of this encounter Results * Due to [place] state law, this organization might not be sharing negative HIV tests. * (ABNORMAL) VITAMIN D, 25-HYDROXY, LC/MS/MS (12/15/2014 11:14 AM EDT) Vitamin D, 25-OH, Total 22(L) 30 - 100 ng/mL [facility] Comment: {VITAMIN D,25-OH,TOTAL,IA {[id number]) Vitamin D Status ? 25-OH Vitamin D: Deficiency: ?<20 ng/mL Insufficiency: ? 20 - 29 ng/mL Optimal: ? > or = 30 ng/mL For 25-OH Vitamin D testing on patients on D2-supplementation and patients for whom quantitation of D2 and D3 fractions is required, the QuestAssureD(TM) 25-OH VIT D, (D2,D3), LC/MS/MS is recommended: order code 85573 (patients >2yrs). For more information on this test, go to: http://education.72xuan/faq/KMQ648 (This link is being provided for informational/educational purposes only.) 12/15/2014 11:1 4 AM EDT 12/15/2014 10:17 PM EDT Narrative Resulting Agency Comment [id number] us Alison Francis MD LABORATORY Final Result [facility] [address] [place] [address] * VITAMIN B12 (CYANOCOBALAMIN), SERUM (12/15/2014 11:14 AM EDT) Vitamin B12 (Cobalamins) 423 200 - 1100 pg/mL [facility] Comment:{VITAMIN B12 {[id number]) 12/15/2014 11:1 4 AM EDT 12/15/2014 10:17 PM EDT Narrative Resulting Agency Comment [id number] us Alison Francis MD LABORATORY Final Result [facility] [address] [place] [address] * BASIC METABOLIC PANEL WITH (GFR) (12/15/2014 11:14 AM EDT) Glucose 97 65 - 99 mg/dL [facility] Comment: {GLUCOSE {[id number]) ? Fasting reference interval Urea Nitrogen Blood (BUN) 21 7 - 25 mg/dL [facility] Comment:{UREA NITROGEN (BUN) {[id number]) Creatinine 0.80 0.60 - 0.93 mg/dL [facility] Comment: {CREATININE {[id number]) For patients >49 years of age, the reference limit for Creatinine is approximately 13% higher for people identified as -Mozambican. GFR 72 > OR = 60 mL/min/1 .73m2 [facility] Comment:{eGFR NON-AFR. AMERI CAN {[id number]) GFR () 83 > OR = 60 mL/min/1 .73m2 [facility] Comment:{eGFR AMERIC AN {[id number]) BUN/Creatinine Ratio NOT APPLICABLE 6 - 22 (calc) [facility] Comment:{BUN/CREATININE RATI O {[id number]) Sodium 137 135 - 146 mmol/L [facility] Comment:{SODIUM {[id number]) Potassium 3.7 3.5 - 5.3 mmol/L [facility] Comment:{POTASSIUM {[id number]) Chloride 101 98 - 110 mmol/L [facility] Comment:{CHLORIDE {[id number]) Carbon dioxide 25 19 - 30 mmol/L [facility] Comment:{CARBON DIOXIDE {[id number]) Calcium 9.7 8.6 - 10.4 mg/dL [facility] Comment:{CALCIUM {[id number]) 12/15/2014 11:1 4 AM EDT 12/15/2014 [...] needs for GFR calculation. Resulting Agency Comment [id number] us Alison Francis MD LABORATORY Final Result Performing Organization Address [facility] Co de Phone Number [facility] [address] [place] [address] * (ABNORMAL) LIPID PANEL WITH REFLEX TO DIRECT LDL (12/15/2014 11:14 AM EDT) Cholesterol 219(H) 125 - 200 mg/dL [facility] Comment:{CHOLESTEROL, TOTAL {[id number]) HDL Cholesterol 49 > OR = 46 mg/dL [facility] Comment:{HDL CHOLESTEROL {[id number]) Triglyceride 165(H) <150 mg/dL [facility] Comment:{TRIGLYCERIDES {[id number]) LDL Cholesterol 137(H) <130 mg/dL (calc) [facility] Comment: {LDL-CHOLESTEROL {[id number]) Desirable range <100 mg/dL for patients with CHD or diabetes and <70 mg/dL for diabetic patients with known heart disease. CHOL/HDL Ratio 4.5 < OR = 5.0 (calc) [facility] Comment:{CHOL/HDLC RATIO {[id number]) Cholesterol Non-HDL 170(H) mg/dL (calc) [facility] Comment: {NON HDL CHOLESTEROL {[id number]) Target for non-HDL cholesterol is 30 mg/dL higher than LDL cholesterol target. 12/15/2014 11:1 4 AM EDT 12/15/2014 10:17 PM EDT Narrative Resulting Agency Comment [id number] us Alison rFancis MD LABORATORY Final Result Performing Organization Address [facility]/ZIP Co de Phone Number [facility] [address] [place] [address] * URINALYSIS, COMPLETE INCLUDES DIPSTICK AND MICROSCOPIC (12/15/2014 11:14 AM EDT) Color (Urine) YELLOW YELLOW [facility] Comment:{COLOR {[id number]) Appearance (Urine) CLEAR CLEAR [facility] Comment:{APPEARANCE {[id number]) Specific gravity (Urine) 1.014 1.001 - 1.035 [facility] Comment:{SPECIFIC GRAVITY {[id number]) pH (Urine) 6.5 5.0 - 8.0 [facility] Comment:{PH {[id number]) Glucose (Urine) NEGATIVE NEGATIVE [facility] Comment:{GLUCOSE {[id number]) Bilirubin (Urine) NEGATIVE NEGATIVE [facility] Comment:{BILIRUBIN {[id number]) Ketones (Urine) NEGATIVE NEGATIVE [facility] Comment:{KETONES {[id number]) Hemoglobin (Urine) NEGATIVE NEGATIVE [facility] Comment:{OCCULT BLOOD {[id number]) Protein (Urine) NEGATIVE NEGATIVE [facility] Comment:{PROTEIN {[id number]) Nitrite (Urine) NEGATIVE NEGATIVE [facility] Comment:{NITRITE {[id number]) Leukocyte esterase (Urine) NEGATIVE NEGATIVE [facility] Comment:{LEUKOCYTE ESTERASE {[id number]) WBC (Urine) NONE SEEN < OR = 5 /HPF [facility] Comment:{WBC {[id number]) RBC (Urine Sed) NONE SEEN < OR = 2 /HPF [facility] Comment:{RBC {[id number]) Epithelial cells.squamous (Urine sed) 0-5 < OR = 5 /HPF [facility] Comment:{SQUAMOUS EPITHELIAL CELLS {[id number]) Bacteria (Urine) NONE SEEN NONE SEEN /HPF [facility] Comment:{BACTERIA {[id number]) Hyaline casts (Urine sed) NONE SEEN NONE SEEN /LPF [facility] Comment:{HYALINE CAST {[id number]) Service comment 01 SEE NOTE [facility] Comment: {COMMENTS {[id number]) The above test was performed; ??evaluate the urinalysis results with caution. ??The urine specimen was received without a preservative. ??Deterioration of formed elements and/or alteration of chemical constituents may have occurred. 12/15/2014 11:1 4 AM EDT 12/15/2014 10:17 PM EDT Narrative Resulting Agency Comment [id number] us Alison Francis MD LAB SAME DAY RESULT Final Resul t [facility] [address] [place] [address] * CBC INCLUDES DIFFERENTIAL AND PLATELET COUNT (12/15/2014 11:14 AM EDT) WBC 6.6 3.8 - 10.8 Thousand/u L [facility] Comment:{WHITE BLOOD CELL CO UNT {[id number]) RBC 4.98 3.80 - 5.10 Million/uL [facility] Comment:{RED BLOOD CELL COUN T {[id number]) Hemoglobin 14.3 11.7 - 15.5 g/dL [facility] Comment:{HEMOGLOBIN {[id number]) Hematocrit 44.0 35.0 - 45.0 % [facility] Comment:{HEMATOCRIT {[id number]) MCV 88.2 80.0 - 100.0 fL [facility] Comment:{MCV {[id number]) MCH 28.8 27.0 - 33.0 pg [facility] Comment:{MCH {[id number]) MCHC 32.6 32.0 - 36.0 g/dL [facility] Comment:{MCHC {[id number]) RDW 13.9 11.0 - 15.0 % [facility] Comment:{RDW {[id number]) PLT 208 140 - 400 Thousand/u L [facility] Comment:{PLATELET COUNT {[id number]) MPV 8.3 7.5 - 11.5 fL [facility] Comment:{MPV {[id number]) Neutrophils # 3505 1500 - 7800 cells/uL [facility] Comment:{ABSOLUTE NEUTROPHIL S {[id number]) Lymphocytes # 2409 850 - 3900 cells/uL [facility] Comment:{ABSOLUTE LYMPHOCYTE S {[id number]) Monocytes # 495 200 - 950 cells/uL [facility] Comment:{ABSOLUTE MONOCYTES {[id number]) Eosinophils # 139 15 - 500 cells/uL [facility] Comment:{ABSOLUTE EOSINOPHIL S {[id number]) Basophils # 53 0 - 200 cells/uL [facility] Comment:{ABSOLUTE BASOPHILS {[id number]) Neutrophils % 53.1 % [facility] Comment:{NEUTROPHILS {[id number]) Lymphocytes % 36.5 % [facility] Comment:{LYMPHOCYTES {[id number]) Monocytes % 7.5 % [facility] Comment:{MONOCYTES {[id number]) Eosinophils % 2.1 % [facility] Comment:{EOSINOPHILS {[id number]) Basophils % 0.8 % [facility] Comment:{BASOPHILS {[id number]) 12/15/2014 11:1 4 AM EDT 12/15/2014 10:17 PM EDT Narrative Resulting Agency Comment [id number] us Alison Francis MD LAB SAME DAY RESULT Final Resul t [facility] [address] [place] [address] * THYROID CASCADING REFLEX (12/15/2014 11:14 AM EDT) TSH 2.72 0.40 - 4.50 mIU/L [facility] Comment:{TSH {[id number]) INTERPRETATION SEE NOTE [facility] Comment: {INTERPRETATION {[id number]) TSH within normal range. Consistent with euthyroid patient. Interference from heterophilic antibodies (more common) or autoantibody (less common) should be considered when the TSH value does not fit the clinical picture. TSH with HAMA Treatment (test code 72718) or TSH Antibody (test code 16516) may help identify such interferences. 12/15/2014 11:1 4 AM EDT 12/15/2014 10:17 PM EDT Narrative Resulting Agency Comment [id number] Alison Francis MD LABORATORY Final Result [facility] [address] [place] [address] documented in this encounter Visit Diagnoses Diagnosis [...] documented as of this encounter Care Teams Paste Mixing Supervisor Relationship Specialty Start Date End Date Alison Francis MD PCP - General 03/20/10 09/01/15 Shreyas Orellana MD PCP - General Internal Medicine 09/02/15 07/07/19 Ashanti Kumar MD PCP - General Family Medicine 07/08/19 07/09/19 Shreyas Orellana MD PCP - General Internal Medicine 07/10/19 09/06/19 Ashanti Kumar MD PCP - General Family Medicine 09/07/19 07/12/20 Vale Walls NP [address] [place] [address] PCP - General Geriatrics 07/13/20 Chastity Cortes MD [address] [place] [address] PCP - Backup PCP Geriatrics 10/23/20 03/30/21 Vale Walls NP [address] [place] [address] PCP - Backup PCP Geriatrics 10/06/21 documented as of this encounter
--- OUTSIDE RECORDS SUMMARY | 2024-07-05 12:15 | XMS_ITS | Encounter Summary ---
Author Organization [facility] Address [address] [place] [address] Care Team Providers Care Can Bander Operator Name Role Phone Ashanti Kumar MD Primary Care Provider Vale Walls AREA DIRECTOR Primary Care Provider Chastity Cortes MD Unavailable [phone] Vale Walls AREA DIRECTOR Unavailable [phone] Encounter Details Date Type Department Care Team (Late st Contact Info) Description 01/31/2020 Orders Only [facility] [address] [place] [phone] Mirna Almaraz, RN [address] [place] [address] Social History Tobacco Use Types Packs/Day Years [...] Start Date Job End Date 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 Procedure Name Priority Date/Time Associated Diagnosis Comments VENIPUNCTURE Routine 01/31/2020 1:50 PM EST Hypertension documented in this encounter Results * Due to [place] law, this organization might not be sharing [...] approximately 13% higher for people identified as -Nigerian. EGFR 60 > OR = 60 mL/min/1. [...] needs for GFR calculation. Resulting Agency Comment [id number] us Andrew Davis MD LABORATORY Final Result [facility] [address] [place] [address] documented in this encounter Visit Diagnoses Diagnosis Hypertension Essential hypertension, benign documented in this encounter Care Teams Can Bander Operator Relationship Specialty Start Date End Date Ashanti Kumar MD PCP - General Family Medicine 09/07/19 07/12/20 Vale Walls NP [address] [place] [address] PCP - General Geriatrics 07/13/20 Chastity Cortes MD [address] [place] [address] PCP - Backup PCP Geriatrics 10/23/20 03/30/21 Vale Walls NP [address] [place] [address] PCP - Backup PCP Geriatrics 10/06/21 documented as of this encounter
--- OUTSIDE RECORDS SUMMARY | 2024-07-05 12:15 | XMS_ITS | Encounter Summary ---
Author Organization [facility] Address [address] [place] [address] Care Team Providers Care Veterinary Nurse Name Role Phone Vale Walls [facility] Primary Care Provider [phone] CouVale badillo [facility] Unavailable [phone] Reason for Visit * Reason Comments Med Change Request Encounter Details Date Type Department Care Team ([facility] Contact Info) Description 04/05/2024 [facility] Orthopedic Surgery [address] [address] Fady Berg MD [address] [place] [address] Med Change Request Social History Tobacco Use [...] 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
--- OUTSIDE RECORDS SUMMARY | 2024-07-05 12:15 | XMS_ITS | Encounter Summary ---
Author Organization [facility] Address [address] [place] [address] Care Team Providers Care Blocker Hand Name Role Phone Alison Francis MD Primary Care Provider [phone] Shreyas Orellana MD Primary Care Provider UnavailAshanti Smith MD Primary Care Provider [phone] Shreyas Orellana MD Primary Care Provider UnavailAshanti Smith MD Primary Care Provider [phone] Vale Walls DIRECTOR OF ENROLLMENT Primary Care Provider Chastity Cortes MD Unavailable Vale Walls DIRECTOR OF ENROLLMENT Unavailable Reason for Visit * Reason Comments E-prescribing Refill Request Encounter Details Date Type Department Care Team (Late st Contact Info) Description 03/30/2014 Refill July Internal Medicine [address] [place] [phone] Alison Francis MD [address] [place] [address] E-prescribing Refill Request Social History Tobacco Use [...] documented as of this encounter Care Teams Blocker Hand Relationship Specialty Start Date End Date Alison Francis MD PCP - General 03/20/10 09/01/15 Shreyas Orellana MD PCP - General Internal Medicine 09/02/15 07/07/19 Ashanti Kumar MD PCP - General Family Medicine 07/08/19 07/09/19 Shreyas Orellana MD PCP - General Internal Medicine 07/10/19 09/06/19 Ashanti Kumar MD PCP - General Family Medicine 09/07/19 07/12/20 Vale Walls NP [address] [place] [address] PCP - General Geriatrics 07/13/20 Chastity Cortes MD [address] [place] [address] PCP - Backup PCP Geriatrics 10/23/20 03/30/21 Vale Walls NP [address] [place] [address] PCP - Backup PCP Geriatrics 10/06/21 documented as of this encounter
--- OUTSIDE RECORDS SUMMARY | 2024-07-05 12:15 | XMS_ITS | Encounter Summary ---
Author Organization [facility] Address [address] [place] [address] Care Team Providers Care Ice Skating Coach Name Role Phone Alison Francis MD Primary Care Provider Shreyas Orellana MD Primary Care Provider UnavailAshanti Smith MD Primary Care Provider [phone] Shreyas Orellana MD Primary Care Provider UnavailAshanti Smith MD Primary Care Provider Vale Walls CALENDER WIND UP TENDER Primary Care Provider Chastity Cortes MD Unavailable Vale Walls CALENDER WIND UP TENDER Unavailable Encounter Details Date Type Department Care Team (Late st Contact Info) Description 12/16/2014 Orders Only July Internal Medicine [address] [place] [address] Alison Francis MD [address] [place] [address] Social History Tobacco Use Types Packs/Day Years [...] of this encounter Results * Due to [place] state law, this organization might not be sharing negative HIV tests. * (ABNORMAL) VITAMIN D, 25-HYDROXY, TOTAL, IMMUNOASSAY (07/07/2015 11:55 AM EDT) Vitamin D, 25-OH, Total 26(L) 30 - 100 ng/mL [facility] Comment: {VITAMIN D,25-OH,TOTAL,IA {[id number]) Vitamin D Status ? 25-OH Vitamin D: Deficiency: ?<20 ng/mL Insufficiency: ? 20 - 29 ng/mL Optimal: ? > or = 30 ng/mL For 25-OH Vitamin D testing on patients on D2-supplementation and patients for whom quantitation of D2 and D3 fractions is required, the QuestAssureD(TM) 25-OH VIT D, (D2,D3), LC/MS/MS is recommended: order code 57071 (patients >2yrs). For more information on this test, go to: http://education.[employer]/faq/HXJ502 (This link is being provided for informational/educational purposes only.) 07/07/2015 11:5 5 AM EDT 07/07/2015 7:19 PM EDT Narrative Resulting Agency Comment [id number] us Alison Francis MD LABORATORY Final Result [facility] [address] [place] [address] documented in this encounter Visit Diagnoses Diagnosis Lipids blood increased- Primary Other and unspecified hyperlipidemia Unspecified vitamin D deficiency documented in this encounter Additional Health Concerns Infection Onset Date Last Indicated Resolved Time COVID-19 Confirmed 07/11/2019 07/11/2019 0 8:12 PM EDT documented as of this encounter Care Teams Ice Skating Coach Relationship Specialty Start Date End Date Alison Francis MD PCP - General 03/20/10 09/01/15 Shreyas Orellana MD PCP - General Internal Medicine 09/02/15 07/07/19 Ashanti Kumar MD PCP - General Family Medicine 07/08/19 07/09/19 Shreyas Orellana MD PCP - General Internal Medicine 07/10/19 09/06/19 Ashanti Kumar MD PCP - General Family Medicine 09/07/19 07/12/20 Vale Walls NP [address] [place] [address] PCP - General Geriatrics 07/13/20 Chastity Cortes MD [address] [place] [address] PCP - Backup PCP Geriatrics 10/23/20 03/30/21 Vale Walls NP [address] [place] [address] PCP - Backup PCP Geriatrics 10/06/21 documented as of this encounter
--- OUTSIDE RECORDS SUMMARY | 2024-07-05 12:15 | XMS_ITS | Encounter Summary ---
Author Organization [facility] Address [address] [place] [address] Care Team Providers Care Lean Engineer Name Role Phone Alison Francis MD Primary Care Provider Shreyas Orellana MD Primary Care Provider UnavailAshanti Smith MD Primary Care Provider Shreyas Orellana MD Primary Care Provider UnavailAshanti Smith MD Primary Care Provider Vale Walls MANAGER CLINICAL APPLICATIONS Primary Care Provider Chastity Cortes MD Unavailable Vale Walls MANAGER CLINICAL APPLICATIONS Unavailable [phone] Encounter Details Date Type Department Care Team (Late st Contact Info) Description 08/22/2011 Orders Only July Internal Medicine [address] [place] [address] Alison Francis MD [address] [place] [address] Social History Tobacco Use Types Packs/Day Years [...] this encounter Procedures * Due to [facility] law, this organization might not [...] in this encounter Results * Due to [place] law, this organization might not be sharing negative HIV tests. * (ABNORMAL) URINALYSIS, DIP ONLY ( SITE STAT ONLY) (08/22/2011 9:17 AM EDT) COLOR (URINE) YELLOW [facility] (CLIA# [id number]) APPEARANCE (URINE) CLOUDY(A) [facility] (CLIA# [id number]) SPECIFIC GRAVITY 1.020 1.001 - 1.035 [facility] (CLIA# [id number]) PH (URINE) 6.5 5.0 - 8.0 [facility] (CLIA# [id number]) PROTEIN (URINE) TRACE(A) Neg [facility] (CLIA# [id number]) GLUCOSE (URINE) NEGATIVE Neg [facility] (CLIA# [id number]) Ketones (Urine) NEGATIVE Neg [facility] (CLIA# [id number]) BILIRUBIN (URINE) NEGATIVE Neg [facility] (CLIA# [id number]) BLOOD (URINE) 3+(A) Neg [facility] (CLIA# [id number]) WBC (URINE) 3+(A) Neg [facility] (CLIA# [id number]) NITRITE (URINE) NEGATIVE Neg [facility] (CLIA# [id number]) Urine specimen (specimen) 08/22/2011 9:17 AM EDT Narrative [facility] (CLIA# [id number]) - 08/22/2011 9:18 AM EDT Culture already ordered per provider. Micro added. Alison Francis MD LAB SAME DAY RESULT Final Resul t [facility] (CLIA# [id number]) [address] [place] [address] * (ABNORMAL) URINALYSIS, MICROSCOPIC (08/22/2011 9:07 AM EDT) WBC (Urine) > OR = 60(A) < OR = 5 /HPF [facility] Comment:{WBC {[id number]) RBC (Urine Sed) 4-10(A) < OR = 3 /HPF [facility] Comment:{RBC {[id number]) Epithelial cells.squamous (Urine sed) 0-5 < OR = 5 /HPF [facility] Comment:{SQUAMOUS EPITHELIAL CELLS {[id number]) Bacteria (Urine) NONE SEEN NONE SEEN /HPF [facility] Comment:{BACTERIA {[id number]) Hyaline casts (Urine sed) NONE SEEN NONE SEEN /LPF [facility] Comment:{HYALINE CAST {[id number]) Service comment 01 SEE NOTE [facility] Comment: {NOTE {[id number]) This urine was analyzed for the presence of WBC, RBC, bacteria, casts, and other formed elements. Only those elements seen were reported. 08/22/2011 9:07 AM EDT 08/22/2011 12:50 PM EDT Narrative Resulting Agency Comment [id number] us Alison Francis MD LAB SAME DAY RESULT Final Resul t [facility] [address] [place] [address] * (ABNORMAL) CULTURE, URINE, ROUTINE (08/22/2011 9:07 AM EDT) Bacteria culture (Urine) SEE NOTE(A) [facility] Comment: {CULTURE, URINE, ROUTINE {[id number]) ??CULTURE, URINE, ROUTINE ??MICRO NUMBER: ?[id number] ??TEST STATUS: ? FINAL ??SPECIMEN SOURCE: ?? [...] 12:50 PM EDT Narrative Resulting Agency Comment [id number] Alison Francis MD LABORATORY Final Result [facility] [address] [place] [address] documented in this encounter Visit Diagnoses Diagnosis UTI (urinary tract infection), uncomplicated- Primary Urinary tract infection, site not specified documented in this encounter Additional Health Concerns Infection Onset Date Last Indicated Resolved Time COVID-19 Confirmed 07/11/2019 07/11/2019 0 8:12 PM EDT documented as of this encounter Care Teams Lean Engineer Relationship Specialty Start Date End Date Alison Francis MD PCP - General 03/20/10 09/01/15 Shreyas Orellana MD PCP - General Internal Medicine 09/02/15 07/07/19 Ashanti Kumar MD PCP - General Family Medicine 07/08/19 07/09/19 Shreyas Orellana MD PCP - General Internal Medicine 07/10/19 09/06/19 Ashanti Kumar MD PCP - General Family Medicine 09/07/19 07/12/20 Vale Walls NP [address] [place] [address] PCP - General Geriatrics 07/13/20 Chastity Cortes MD [address] [place] [address] PCP - Backup PCP Geriatrics 10/23/20 03/30/21 Vale Walls NP [address] [place] [address] PCP - Backup PCP Geriatrics 10/06/21 documented as of this encounter
--- OUTSIDE RECORDS SUMMARY | 2024-07-05 12:15 | XMS_ITS | Encounter Summary ---
Author Organization [facility] Address [address] [place] [address] Care Team Providers Care Flatbed Stitcher Name Role Phone Alison Francis MD Primary Care Provider [phone] Shreyas Orellana MD Primary Care Provider UnavailAshanti Smith MD Primary Care Provider [phone] Shreyas Orellana MD Primary Care Provider UnavailAshanti Smith MD Primary Care Provider [phone] Vale Walls PARCEL POST CARRIER Primary Care Provider Chastity Cortes MD Unavailable [phone] Vale Walls PARCEL POST CARRIER Unavailable [phone] Reason for Visit * Reason Onset Date Comments Dizziness 08/29/2011 Encounter Details Date Type Department Care Team (Late st Contact Info) Description 08/29/2011 Telephone [facility] Internal Medicine [address] [place] [address] Alison Francis MD [address] [place] [address] Dizziness Social History Tobacco Use Types Packs/Day [...] her way now to take pt to [facility] er for evaluation Advised for pt and daughter to call back philip if any changes or pt will agree to go by ambulance Pt very appreciative declines any distress at this time [facility] triage notified fyi * Telephone Encounter [...] documented as of this encounter Care Teams Flatbed Stitcher Relationship Specialty Start Date End Date Alison Francis MD PCP - General 03/20/10 09/01/15 Shreyas Orellana MD PCP - General Internal Medicine 09/02/15 07/07/19 Ashanti Kumar MD PCP - General Family Medicine 07/08/19 07/09/19 Shreyas Orellana MD PCP - General Internal Medicine 07/10/19 09/06/19 Ashanti Kumar MD PCP - General Family Medicine 09/07/19 07/12/20 Vale Walls NP [address] [place] [address] PCP - General Geriatrics 07/13/20 Chastity Cortes MD [address] [place] [address] PCP - Backup PCP Geriatrics 10/23/20 03/30/21 Vale Walls NP [address] [place] [address] PCP - Backup PCP Geriatrics 10/06/21 documented as of this encounter
--- OUTSIDE RECORDS SUMMARY | 2024-07-05 12:15 | XMS_ITS | Encounter Summary ---
Author Organization [facility] Address [address] [place] [address] Care Team Providers Care Etcher Printed Circuit Boards Name Role Phone Alison Francis MD Primary Care Provider [phone] Shreyas Orellana MD Primary Care Provider UnavailAshanti Smith MD Primary Care Provider [phone] Shreyas Orlelana MD Primary Care Provider UnavailAshanti Smith MD Primary Care Provider Vale Walls SLASH TRIMMER Primary Care Provider Chastity Cortes MD Unavailable Vale Walls SLASH TRIMMER Unavailable Encounter Details Date Type Department Care Team (Late st Contact Info) Description 05/13/2015 Orders Only July Internal Medicine [address] [place] [address] Alison Francis MD [address] [place] [address] Social History Tobacco Use Types Packs/Day Years [...] documented as of this encounter Care Teams Etcher Printed Circuit Boards Relationship Specialty Start Date End Date Alison Francis MD PCP - General 03/20/10 09/01/15 Shreyas Orellana MD PCP - General Internal Medicine 09/02/15 07/07/19 Ashanti Kumar MD PCP - General Family Medicine 07/08/19 07/09/19 Shreyas Orellana MD PCP - General Internal Medicine 07/10/19 09/06/19 Ashanti Kumar MD PCP - General Family Medicine 09/07/19 07/12/20 Vale Walls NP [address] [place] [address] PCP - General Geriatrics 07/13/20 Chastity Cortes MD [address] [place] [address] PCP - Backup PCP Geriatrics 10/23/20 03/30/21 Vale Walls NP [address] [place] [address] PCP - Backup PCP Geriatrics 10/06/21 documented as of this encounter
--- OUTSIDE RECORDS SUMMARY | 2024-07-05 12:15 | XMS_ITS | Encounter Summary ---
Author Organization [facility] Address [address] [place] [address] Care Team Providers Care Biological Photographer Name Role Phone Alison Francis MD Primary Care Provider [phone] Shreyas Orellana MD Primary Care Provider UnavailAshanti Smith MD Primary Care Provider Shreyas Orellana MD Primary Care Provider Unavaila Ashanti Shetty MD Primary Care Provider Vale Walls FLYING INSTRUCTOR Primary Care Provider Chastity Cortes MD Unavailable Vale Walls FLYING INSTRUCTOR Unavailable [phone] Encounter Details Date Type Department Care Team (Late st Contact Info) Description 12/10/2012 Orders Only [facility] Rheumatology [address] [place] [address] Chalino Diaz MD [address] [place] [address] Social History Tobacco Use Types Packs/Day Years [...] of this encounter Procedures * Due to [employer] law, this organization might not be sharing [...] this encounter Results * Due to [employer] law, this organization might not be sharing negative HIV tests. * CBC INCLUDES DIFFERENTIAL AND PLATELET COUNT (12/10/2012 1:46 PM EDT) WBC 6.0 3.8 - 10.8 Thousand/u L [facility] Comment:{WHITE BLOOD CELL CO UNT {[id number]) RBC 4.57 3.80 - 5.10 Million/uL [facility] Comment:{RED BLOOD CELL COUN T {[id number]) Hemoglobin 13.4 11.7 - 15.5 g/dL [facility] Comment:{HEMOGLOBIN {[id number]) Hematocrit 40.9 35.0 - 45.0 % [facility] Comment:{HEMATOCRIT {[id number]) MCV 89.6 80.0 - 100.0 fL [facility] Comment:{MCV {[id number]) MCH 29.4 27.0 - 33.0 pg [facility] Comment:{MCH {[id number]) MCHC 32.8 32.0 - 36.0 g/dL [facility] Comment:{MCHC {[id number]) RDW 13.2 11.0 - 15.0 % [facility] Comment:{RDW {[id number]) PLT 207 140 - 400 Thousand/u L [facility] Comment:{PLATELET COUNT {[id number]) MPV 8.1 7.5 - 11.5 fL [facility] Comment:{MPV {[id number]) Neutrophils # 2850 1500 - 7800 cells/uL [facility] Comment:{ABSOLUTE NEUTROPHIL S {[id number]) Lymphocytes # 2550 850 - 3900 cells/uL [facility] Comment:{ABSOLUTE LYMPHOCYTE S {[id number]) Monocytes # 456 200 - 950 cells/uL [facility] Comment:{ABSOLUTE MONOCYTES {[id number]) Eosinophils # 90 15 - 500 cells/uL [facility] Comment:{ABSOLUTE EOSINOPHIL S {[id number]) Basophils # 54 0 - 200 cells/uL [facility] Comment:{ABSOLUTE BASOPHILS {[id number]) Neutrophils % 47.5 % [facility] Comment:{NEUTROPHILS {[id number]) Lymphocytes % 42.5 % [facility] Comment:{LYMPHOCYTES {[id number]) Monocytes % 7.6 % [facility] Comment:{MONOCYTES {[id number]) Eosinophils % 1.5 % [facility] Comment:{EOSINOPHILS {[id number]) Basophils % 0.9 % [facility] Comment:{BASOPHILS {[id number]) 12/10/2012 1:46 PM EDT 12/10/2012 9:11 PM EDT Narrative [facility] - 12/11/2012 2:18 AM EDT Report Comments: WHICH ACCOUNT IS THIS ORDER RELATED TO OTHER THAN P/F?-> REORDERED FOR ALL ORDERING PROVIDERS Resulting Agency Comment [id number] us Chalino Diaz MD LAB SAME DAY RESULT Final Resul t [facility] [address] [place] [address] * COMPREHENSIVE METABOLIC PANEL WITH GFR (12/10/2012 1:46 PM EDT) Glucose 91 65 - 99 mg/dL [facility] Comment: {GLUCOSE {[id number]) ? Fasting reference interval Urea Nitrogen Blood (BUN) 23 7 - 25 mg/dL [facility] Comment:{UREA NITROGEN (BUN) {[id number]) Creatinine 0.75 0.60 - 0.93 mg/dL [facility] Comment: {CREATININE {[id number]) For patients >49 years of age, the reference limit for Creatinine is approximately 13% higher for people identified as -Tun[place]ian. GFR 79 > OR = 60 mL/min/1 .73m2 [facility] Comment:{eGFR NON-AFR. AMERI CAN {[id number]) GFR () 91 > OR = 60 mL/min/1 .73m2 [facility] Comment:{eGFR AMERIC AN {[id number]) BUN/Creatinine Ratio NOT APPLICABLE (calc) [facility] Comment:{BUN/CREATININE RATI O {[id number]) Sodium 140 135 - 146 mmol/L [facility] Comment:{SODIUM {[id number]) Potassium 3.8 3.5 - 5.3 mmol/L [facility] Comment:{POTASSIUM {[id number]) Chloride 107 98 - 110 mmol/L [facility] Comment:{CHLORIDE {[id number]) Carbon dioxide 25 19 - 30 mmol/L [facility] Comment:{CARBON DIOXIDE {[id number]) Calcium 9.1 8.6 - 10.4 mg/dL [facility] Comment:{CALCIUM {[id number]) Protein Total (Serum) 7.2 6.1 - 8.1 g/dL [facility] Comment:{PROTEIN, TOTAL {[id number]) Albumin 4.0 3.6 - 5.1 g/dL [facility] Comment:{ALBUMIN {[id number]) Globulin 3.2 1.9 - 3.7 g/dL (calc) [facility] Comment:{GLOBULIN {[id number]) Albumin/Globulin 1.3 1.0 - 2.5 (calc) [facility] Comment:{ALBUMIN/GLOBULIN RA QUENTIN {[id number]) Bilirubin Total 0.4 0.2 - 1.2 mg/dL [facility] Comment:{BILIRUBIN, TOTAL {[id number]) Alkaline phosphatase 55 33 - 130 U/L [facility] Comment:{ALKALINE PHOSPHATAS E {[id number]) AST (SGOT) 23 10 - 35 U/L [facility] Comment:{AST {[id number]) ALT (SGPT) 18 6 - 29 U/L [facility] Comment:{ALT {[id number]) 12/10/2012 1:46 PM EDT 12/10/2012 9:11 [...] FOR ALL ORDERING PROVIDERS Resulting Agency Comment [id number] us Chalino Diaz MD LABORATORY Final Result [facility] [address] [place] [address] * URINALYSIS, COMPLETE INCLUDES DIPSTICK AND MICROSCOPIC (12/10/2012 1:46 PM EDT) Color (Urine) YELLOW YELLOW [facility] Comment:{COLOR {[id number]) Appearance (Urine) CLEAR CLEAR [facility] Comment:{APPEARANCE {[id number]) Specific gravity (Urine) 1.014 1.001 - 1.035 [facility] Comment:{SPECIFIC GRAVITY {[id number]) pH (Urine) 7.0 5.0 - 8.0 [facility] Comment:{PH {[id number]) Glucose (Urine) NEGATIVE NEGATIVE [facility] Comment:{GLUCOSE {[id number]) Bilirubin (Urine) NEGATIVE NEGATIVE [facility] Comment:{BILIRUBIN {[id number]) Ketones (Urine) NEGATIVE NEGATIVE [facility] Comment:{KETONES {[id number]) Hemoglobin (Urine) NEGATIVE NEGATIVE [facility] Comment:{OCCULT BLOOD {[id number]) Protein (Urine) NEGATIVE NEGATIVE [facility] Comment:{PROTEIN {[id number]) Nitrite (Urine) NEGATIVE NEGATIVE [facility] Comment:{NITRITE {[id number]) Leukocyte esterase (Urine) NEGATIVE NEGATIVE [facility] Comment:{LEUKOCYTE ESTERASE {[id number]) WBC (Urine) 0-5 < OR = 5 /HPF [facility] Comment:{WBC {[id number]) RBC (Urine Sed) NONE SEEN < OR = 3 /HPF [facility] Comment:{RBC {[id number]) Epithelial cells.squamous (Urine sed) 0-5 < OR = 5 /HPF [facility] Comment:{SQUAMOUS EPITHELIAL CELLS {[id number]) Bacteria (Urine) NONE SEEN NONE SEEN /HPF [facility] Comment:{BACTERIA {[id number]) Hyaline casts (Urine sed) NONE SEEN NONE SEEN /LPF [facility] Comment:{HYALINE CAST {[id number]) 12/10/2012 1:46 PM EDT 12/10/2012 9:11 PM EDT Narrative [facility] - 12/11/2012 1:40 AM EDT Report Comments: WHICH ACCOUNT IS THIS ORDER RELATED TO OTHER THAN P/F?-> REORDERED FOR ALL ORDERING PROVIDERS Resulting Agency Comment [id number] us Chalino Diaz MD LAB SAME DAY RESULT Final Resul t [facility] [address] [place] [address] documented in this encounter Visit Diagnoses Diagnosis Ds DNA antibody positive- Primary Other and unspecified nonspecific immunological findings documented in this encounter Additional Health Concerns Infection Onset Date Last Indicated Resolved Time COVID-19 Confirmed 07/11/2019 07/11/2019 0 8:12 PM EDT documented as of this encounter Care Teams Biological Photographer Relationship Specialty Start Date End Date Alison Francis MD PCP - General 03/20/10 09/01/15 Shreyas Orellana MD PCP - General Internal Medicine 09/02/15 07/07/19 Ashanti Kumar MD PCP - General Family Medicine 07/08/19 07/09/19 Shreyas Orellana MD PCP - General Internal Medicine 07/10/19 09/06/19 Ashanti Kumar MD PCP - General Family Medicine 09/07/19 07/12/20 Vale Walls NP [address] [place] [address] PCP - General Geriatrics 07/13/20 Chastity Cortes MD [address] [place] [address] PCP - Backup PCP Geriatrics 10/23/20 03/30/21 Vale Walls NP [address] [place] [address] PCP - Backup PCP Geriatrics 10/06/21 documented as of this encounter
--- OUTSIDE RECORDS SUMMARY | 2024-07-05 12:15 | XMS_ITS | Encounter Summary ---
Author Organization [facility] Address [address] [place] [address] Care Team Providers Care Malt House Loader Name Role Phone Alison Francis MD Primary Care Provider [phone] Alison Francis MD Primary Care Provider [phone] Regan Darling MD Primary Care Provider [phone] Shreyas Orellana MD Primary Care Provider UnavailAshanti Smith MD Primary Care Provider [phone] Shreyas Orellana MD Primary Care Provider UnavailAshanti Smith MD Primary Care Provider [phone] Vale Walls NP Primary Care Provider [phone] Chastity Cortes MD Unavailable [phone] Vale Walls WEB DEVELOPER Unavailable [phone] Encounter Details Date Type Department Care Team (Late st Contact Info) Description 06/08/2007 Orders Only [facility] Internal Medicine [address] [place] [id number] Regan Darling MD [address] [place] [address] Social History Tobacco Use Types Packs/Day Years [...] of this encounter Procedures * Due to [facility] law, this organization might not be sharing negative HIV tests. Procedure Name Priority Date/Time Associated Diagnosis Comments BASIC METABOLIC PANEL STAT (All results called to provider) 06/08/2007 DEHYDRATION CBC 5 PART DIFF STAT (All results called to provider) 06/08/2007 FATIGUE documented in this encounter Results * Due to [email or web address] law, this organization might not be sharing negative HIV tests. * (ABNORMAL) CBC 5 PART DIFF (06/08/2007) WHITE BLOOD COUNT 11.1(H) 3.8 - 10.8 THOUS/UL [facility] (CLIA# [id number]) RBC 5.04 3.80 - 5.10 MIL/UL [facility] (CLIA# [id number]) Hemoglobin 14.7 11.7 - 15.5 G/DL [facility] (CLIA# [id number]) HCT (HEMATOCRIT) 43.2 35.0 - 45.0 % [facility] (CLIA# [id number]) MCV 85.7 80.0 - 100.0 FL [facility] (CLIA# [id number]) MCH 29.2 27.0 - 33.0 PG [facility] (CLIA# [id number]) MCHC 34.1 32.0 - 36.0 G/DL [facility] (CLIA# [id number]) BAND % 0 0 - 5 % [facility] (CLIA# [id number]) NEUTROPHIL % 43(L) 48 - 75 % [facility] (CLIA# [id number]) LYMPHOCYTE % 19 17 - 40 % [facility] (CLIA# [id number]) MONOCYTE % 2 0 - 14 % [facility] (CLIA# [id number]) EOSINOPHIL % 36(H) 0 - 5 % [facility] (CLIA# [id number]) BASOPHIL % 0 0 - 3 % [facility] (CLIA# [id number]) ATYPICAL LYMPHOCYTE % 0 0 - 5 % [facility] (CLIA# [id number]) RBC MORPHOLOGY NORM [facility] (CLIA# [id number]) PLATELETS 246 140 - 400 THOUS/UL [facility] (CLIA# [id number]) BANDS # 0 0 - 750 CELLS/MCL [facility] (CLIA# [id number]) NEUTROPHILS # 4773 1500 - 7800 CELLS/MCL [facility] (CLIA# [id number]) LYMPHOCYTES # 2109 850 - 3900 CELLS/MCL [facility] (CLIA# [id number]) MONOCYTES # 222 200 - 950 CELLS/MCL [facility] (CLIA# [id number]) EOSINOPHILS # 3996(H) 15 - 550 CELLS/MCL [facility] (CLIA# [id number]) BASOPHILS # 0 0 - 200 CELLS/MCL [facility] (CLIA# [id number]) ATYPICAL LYMPHOCYTES # 0 0 - 200 CELLS/MCL [facility] (CLIA# [id number]) RDW 13.5 11.0 - 15.0 % [facility] (CLIA# [id number]) MPV 7.4(L) 7.5 - 11.5 FL [facility] (CLIA# [id number]) 06/08/2007 06/08/2007 11: 42 AM EDT Narrative [facility] (CLIA# [id number]) - 06/08/2007 12:17 PM EDT Report Comments: ALTHOUGH AN AUTOMATED CBC WAS ORDERED, OUR INSTRUMENTATION DETECTED AN ABNORMALITY ON YOUR PATIENT'S SPECIMEN, REQUIRING US TO PERFORM A MANUAL REVIEW. us Regan Darling MD LAB SAME DAY RESULT Edited [facility] (CLIA# [id number]) [address] [place] [address] * (ABNORMAL) BASIC METABOLIC PANEL (06/08/2007) CALCIUM 9.3 8.6 - 10.2 MG/DL [facility] (CLIA# [id number]) BUN 34(H) 7 - 25 MG/DL [facility] (CLIA# [id number]) CREATININE 1.94(H) 0.50-1.30/ 1.20 MG/DL [facility] (CLIA# [id number]) BUN/Creatinine Ratio 18 6 - 25 [facility] (CLIA# [id number]) Glucose 111(H) 65 - 99 MG/DL [facility] (CLIA# [id number]) SODIUM 140 135 - 146 MMOL/L [facility] (CLIA# [id number]) POTASSIUM 4.2 3.5 - 5.3 MMOL/L [facility] (CLIA# [id number]) CHLORIDE 102 98 - 110 MMOL/L [facility] (CLIA# [id number]) CARBON DIOXIDE 22 21 - 33 MMOL/L [facility] (CLIA# [id number]) 06/08/2007 06/08/2007 11: 42 AM EDT Narrative [facility] (CLIA# [id number]) - 06/08/2007 12:17 PM EDT Report Comments: ALTHOUGH AN AUTOMATED CBC WAS ORDERED, OUR INSTRUMENTATION DETECTED AN ABNORMALITY ON YOUR PATIENT'S SPECIMEN, REQUIRING US TO PERFORM A MANUAL REVIEW. us Regan Darling MD LAB SAME DAY RESULT Final Re sult [facility] (CLIA# [id number]) [address] [place] [address] documented in this encounter Visit Diagnoses Diagnosis DEHYDRATION Dehydration FATIGUE Other malaise and fatigue documented in this encounter Additional Health Concerns Infection Onset Date Last Indicated Resolved Time COVID-19 Confirmed 07/11/2019 07/11/2019 0 8:12 PM EDT documented as of this encounter Care Teams Malt House Loader Relationship Specialty Start Date End Date Alison Francis MD PCP - General 03/20/10 09/01/15 Alison Francis MD PCP - General 07/02/07 03/19/10 Regan Darling MD [address] [place] [address] PCP - General 06/11/05 07/01/07 Shreyas Orellnaa MD [address] [place] [address] PCP - General Internal Medicine 09/02/15 07/07/19 Ashanti Kumar MD [address] [place] [address] PCP - General Family Medicine 07/08/19 07/09/19 Shreyas Orellana MD [address] [place] [address] PCP - General Internal Medicine 07/10/19 09/06/19 Ashanti Kumar MD [address] [place] [address] PCP - General Family Medicine 09/07/19 07/12/20 Vale Walls NP [address] [place] [address] PCP - General Geriatrics 07/13/20 Chastity Cortes MD [address] [place] [address] PCP - Backup PCP Geriatrics 10/23/20 03/30/21 Vale Walls NP [address] [place] [address] PCP - Backup PCP Geriatrics 10/06/21 documented as of this encounter
--- OUTSIDE RECORDS SUMMARY | 2024-07-05 12:15 | XMS_ITS | Encounter Summary ---
Author Organization [facility] Address [address] [place] [address] Care Team Providers Care Link Wire Fabric Machine Operator Name Role Phone Alison Francis MD Primary Care Provider [phone] Alison Francis MD Primary Care Provider [phone] Regan Darling MD Primary Care Provider [phone] Shreyas Orellana MD Primary Care Provider UnavailAshanti Smith MD Primary Care Provider [phone] Shreyas Orellana MD Primary Care Provider UnavailAshanti Smith MD Primary Care Provider [phone] Vale Walls NP Primary Care Provider [phone] Chastity Cortes MD Unavailable [phone] Vale Walls MANAGER MEAT Unavailable [phone] Encounter Details Date Type Department Care Team (Late st Contact Info) Description 04/09/2007 Orders Only [facility] Internal Medicine [address] [place] [id number] Regan Darling MD [address] [place] [address] Social History Tobacco Use Types Packs/Day Years [...] of this encounter Procedures * Due to [facility] law, this organization might not be [...] this encounter Results * Due to [place] [employer] law, this organization might not be sharing negative HIV tests. * VITAMIN D, 25-HYDROXY, LC/MS/MS (04/09/2007) Vitamin D, 25-OH, Total 23 20 - 100 NG/ML [facility] (CLIA# [id number]) VITAMIN D, 25-OH, D3 (CHOLECALCIFEROL ) 23 NG/ML [facility] (CLIA# [id number]) VITAMIN D, 25-OH, D2 (CALCIFEROL) <4 NG/ML [facility] (CLIA# [id number]) Comment: 25-OHD3 INDICATES BOTH ENDOGENOUS PRODUCTION AND [...] MD LABORATORY Final Result Performing Organization Address City/[facility]/ZIP Co de Phone Number [facility] (CLIA# [id number]) [address] [place] [address] * (ABNORMAL) CBC W/O DIFFERENTIAL (04/09/2007) WHITE BLOOD COUNT 5.4 3.8 - 10.8 THOUS/UL [facility] (CLIA# [id number]) RBC 5.18(H) 3.80 - 5.10 MIL/UL [facility] (CLIA# [id number]) Hemoglobin 15.2 11.7 - 15.5 G/DL [facility] (CLIA# [id number]) HCT (HEMATOCRIT) 44.4 35.0 - 45.0 % FC [facility] (CLIA# [id number]) MCV 85.8 80.0 - 100.0 FL [facility] (CLIA# [id number]) MCH 29.4 27.0 - 33.0 PG [facility] (CLIA# [id number]) MCHC 34.3 32.0 - 36.0 G/DL [facility] (CLIA# [id number]) PLATELETS 236 140 - 400 THOUS/UL [facility] (CLIA# [id number]) RDW 13.0 11.0 - 15.0 % [facility] (CLIA# [id number]) MPV 7.9 7.5 - 11.5 FL [facility] (CLIA# [id number]) 04/09/2007 04/09/2007 3:2 4 PM EST Regan Darling MD LABORATORY Final Result Performing Organization Address City/[facility]/ZIP Co de Phone Number [facility] (CLIA# [id number]) [address] [place] [address] * (ABNORMAL) CARDIAC RISK/LIPID PROFILE I (04/09/2007) CHOLESTEROL, TOTAL 248(H) 125 - 200 MG/DL [facility] (CLIA# [id number]) TRIGLYCERIDES 122 30 - 149 MG/DL [facility] (CLIA# [id number]) HDL-CHOLESTEROL 58 40 - 77 MG/DL [facility] (CLIA# [id number]) LDL-CHOLESTEROL 166(H) 62 - 130 MG/DL [facility] (CLIA# [id number]) Comment: RISK CATEGORY: ??LDL-CHOLESTEROL GOAL CHD AND CHD RISK EQUIVALENTS: ??<100 MULTIPLE (2+) FACTORS: ??<130 ZERO TO ONE RISK FACTOR: ??<160 CHD RELATIVE RISK RATIO (TOTAL/HDL) 4.28 0.0 - 5.0 [facility] (CLIA# [id number]) Comment:(1.0 X AVERAGE) 04/09/2007 04/09/2007 3:2 4 PM EST Regan Darling MD LABORATORY Final Result [facility] (CLIA# [id number]) [address] [place] [address] * (ABNORMAL) BASIC METABOLIC PANEL (04/09/2007) CALCIUM 9.0 8.6 - 10.2 MG/DL [facility] (CLIA# [id number]) BUN 22 7 - 25 MG/DL [facility] (CLIA# [id number]) CREATININE 0.79 0.50-1.30/ 1.20 MG/DL [facility] (CLIA# [id number]) BUN/Creatinine Ratio 28(H) 6 - 25 [facility] (CLIA# [id number]) Glucose 98 65 - 99 MG/DL [facility] (CLIA# [id number]) SODIUM 140 135 - 146 MMOL/L [facility] (CLIA# [id number]) POTASSIUM 4.1 3.5 - 5.3 MMOL/L [facility] (CLIA# [id number]) CHLORIDE 108 98 - 110 MMOL/L [facility] (CLIA# [id number]) CARBON DIOXIDE 19(L) 21 - 33 MMOL/L [facility] (CLIA# [id number]) 04/09/2007 04/09/2007 3:2 4 PM EST us Regan Darling MD LAB SAME DAY RESULT Final Re sult [facility] (CLIA# [id number]) [address] [place] [address] * (ABNORMAL) URINALYSIS, COMPLETE (DIP & MICRO) (04/09/2007) COLOR (URINE) YELLOW YELLOW [facility] (CLIA# [id number]) APPEARANCE (URINE) TURBID(A) CLEAR [facility] (CLIA# [id number]) SPECIFIC GRAVITY 1.028 1.001 - 1.035 [facility] (CLIA# [id number]) PH (URINE) 5.5 5.0 - 8.0 [facility] (CLIA# [id number]) PROTEIN (URINE) NEG NEG FC [facility] (CLIA# [id number]) GLUCOSE (URINE) NEG NEG [facility] (CLIA# [id number]) Ketones (Urine) NEG NEG [facility] (CLIA# [id number]) BILIRUBIN (URINE) NEG NEG [facility] (CLIA# [id number]) BLOOD (URINE) NEG NEG [facility] (CLIA# [id number]) WBC (URINE) NEG NEG [facility] (CLIA# [id number]) NITRITE (URINE) NEG NEG [facility] (CLIA# [id number]) WBC (URINE) 0-4 0-4/HPF [facility] (CLIA# [id number]) RBC (Urine Sed) 0 0-3/HPF [facility] (CLIA# [id number]) EPITHELIAL CELLS.SQUAMOUS (URINE SED) 0 0-5/HPF [facility] (CLIA# [id number]) EPITHELIAL CELLS.TRANSITIO NAL (URINE SED) 0 0-5/HPF [facility] (CLIA# [id number]) EPITHELIAL CELLS.RENAL (URINE SED) 0 0-3/HPF [facility] (CLIA# [id number]) BACTERIA (URINE) NONE SEEN NONE SEEN [facility] (CLIA# [id number]) 04/09/2007 04/09/2007 3:2 4 PM EST Regan Darling MD LAB SAME DAY RESULT Final Re sult [facility] (CLIA# [id number]) [address] [place] [address] * THYROID CASCADE (04/09/2007) TSH, THYROTROPIN 1.38 0.40 - 4.50 UIU/ML [facility] (CLIA# [id number]) 04/09/2007 04/09/2007 3:2 4 PM EST Regan Darling MD LABORATORY Final Result Performing Organization Address City/[facility]/ZIP Co de Phone Number [facility] (CLIA# [id number]) [address] [place] [address] documented in this encounter Visit Diagnoses Diagnosis [...] documented as of this encounter Care Teams Link Wire Fabric Machine Operator Relationship Specialty Start Date End Date Alison Francis MD PCP - General 03/20/10 09/01/15 Alison Francis MD PCP - General 07/02/07 03/19/10 Regan Darling MD [address] [place] [address] PCP - General 06/11/05 07/01/07 Shreyas Orellana MD [address] [place] [address] PCP - General Internal Medicine 09/02/15 07/07/19 Ashanti Kumar MD [address] [place] [address] PCP - General Family Medicine 07/08/19 07/09/19 Shreyas Orellana MD [address] [place] [address] PCP - General Internal Medicine 07/10/19 09/06/19 Ashanti Kumar MD [address] [place] [address] PCP - General Family Medicine 09/07/19 07/12/20 Vale Walls NP [address] [place] [address] PCP - General Geriatrics 07/13/20 Chastity Cortes MD [address] [place] [address] PCP - Backup PCP Geriatrics 10/23/20 03/30/21 Vale Walls NP [address] [place] [address] PCP - Backup PCP Geriatrics 10/06/21 documented as of this encounter
--- OUTSIDE RECORDS SUMMARY | 2024-07-05 12:15 | XMS_ITS | Encounter Summary ---
Author Organization [facility] Address [address] [place] [address] Care Team Providers Care Mop Maker Name Role Phone Alison Francis MD Primary Care Provider [phone] Shreyas Orellana MD Primary Care Provider UnavailAshanti Smith MD Primary Care Provider Shreyas Orellana MD Primary Care Provider UnavailAshanti Smith MD Primary Care Provider Vale Walls VERIFICATION ENGINEER Primary Care Provider Chastity Cortes MD Unavailable Vale Walls VERIFICATION ENGINEER Unavailable Encounter Details Date Type Department Care Team (Late st Contact Info) Description 08/26/2011 Orders Only [facility] Internal Medicine [address] [place] [address] Alison Francis MD [address] [place] [address] Social History Tobacco Use Types Packs/Day Years [...] this encounter Procedures * Due to [place] [employer] law, this organization might not be sharing negative HIV tests. Procedure Name Priority Date/Time Associated Diagnosis Comments BASIC METABOLIC PANEL WITH (GFR) Routine 08/26/2011 2:49 PM EDT Hypertension documented in this encounter Results * Due to [place] [employer] law, this organization might not be sharing negative HIV tests. * (ABNORMAL) BASIC METABOLIC PANEL WITH (GFR) (08/26/2011 2:49 PM EDT) Glucose 104(H) 65 - 99 mg/dL [facility] Comment: {GLUCOSE {[id number]) ? Fasting reference interval Urea Nitrogen Blood (BUN) 21 7 - 25 mg/dL [facility] Comment:{UREA NITROGEN (BUN) {[id number]) Creatinine 0.96(H) 0.60 - 0.93 mg/dL [facility] Comment: {CREATININE {[id number]) For patients >49 years of age, the reference limit for Creatinine is approximately 13% higher for people identified as -[place]. GFR 59(L) > OR = 60 mL/min/1. 73m2 [facility] Comment:{eGFR NON-AFR. AMERI CAN {[id number]) GFR () 68 > OR = 60 mL/min/1. 73m2 [facility] Comment:{eGFR AMERIC AN {[id number]) BUN/Creatinine Ratio 22 6 - 22 (calc) [facility] Comment:{BUN/CREATININE RATI O {[id number]) Sodium 140 135 - 146 mmol/L [facility] Comment:{SODIUM {[id number]) Potassium 3.0(L) 3.5 - 5.3 mmol/L [facility] Comment:{POTASSIUM {[id number]) Chloride 102 98 - 110 mmol/L [facility] Comment:{CHLORIDE {[id number]) Carbon dioxide 27 21 - 33 mmol/L [facility] Comment:{CARBON DIOXIDE {[id number]) Calcium 9.6 8.6 - 10.4 mg/dL [facility] Comment:{CALCIUM {[id number]) 08/26/2011 2:49 PM EDT 08/26/2011 10:58 [...] needs for GFR calculation. Resulting Agency Comment [id number] Alison Francis MD LABORATORY Final Result [facility] [address] [place] [address] documented in this encounter Visit Diagnoses Diagnosis Hypertension Unspecified essential hypertension documented in this encounter Additional Health Concerns Infection Onset Date Last Indicated Resolved Time COVID-19 Confirmed 07/11/2019 07/11/2019 0 8:12 PM EDT documented as of this encounter Care Teams Mop Maker Relationship Specialty Start Date End Date Alison Francis MD PCP - General 03/20/10 09/01/15 Shreyas Orellana MD PCP - General Internal Medicine 09/02/15 07/07/19 Ashanti Kumar MD PCP - General Family Medicine 07/08/19 07/09/19 Shreyas Orellana MD PCP - General Internal Medicine 07/10/19 09/06/19 Ashanti Kumar MD PCP - General Family Medicine 09/07/19 07/12/20 Vale Walls NP [address] [place] [address] PCP - General Geriatrics 07/13/20 Chastity Cortes MD [address] [place] [address] PCP - Backup PCP Geriatrics 10/23/20 03/30/21 Vale Walls NP [address] [place] [address] PCP - Backup PCP Geriatrics 10/06/21 documented as of this encounter
--- OUTSIDE RECORDS SUMMARY | 2024-07-05 12:15 | XMS_ITS | Encounter Summary ---
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 Procedure Name Priority Date/Time Associated Diagnosis Comments URIC ACID, SERUM Routine 11/09/2020 10:5 3 AM EDT Right foot pain VENIPUNCTURE Routine 11/09/2020 10:53 AM EDT Memory loss VITAMIN D, 25-HYDROXY, TOTAL, IMMUNOASSAY Routine 11/09/2020 10:53 AM EDT Vitamin D Defiency documented in this encounter Results * Due to [place] [employer] law, this organization might not be sharing negative HIV tests. * VITAMIN D, 25-HYDROXY, TOTAL, IMMUNOASSAY (11/09/2020 10:53 AM EDT) Vitamin D, 25-OH, Total 35 30 - 100 ng/mL [facility] Comment: Vitamin D Status ? 25-OH Vitamin D: Deficiency: ?<20 ng/mL Insufficiency: ? 20 - 29 ng/mL Optimal: ? > or = 30 ng/mL For 25-OH Vitamin D testing on patients on D2-supplementation and patients for whom quantitation of D2 and D3 fractions is required, the QuestAssureD() 25-OH VIT D, (D2,D3), LC/MS/MS is recommended: order code [id number] (patients >2yrs). See Note 1 Note 1 For additional information, please refer to http://education.[email or web address]/faq/LBZ035 (This link is being provided for informational/ educational purposes only.) 11/09/2020 10:5 3 AM EDT 11/09/2020 12:10 PM EDT Narrative Resulting Agency Comment [id number] Vale Walls OPERATIONS RESEARCH ANALYST LABORATORY Final Resul t Performing Organization Address [facility] de Phone Number [facility] [address] [place] [address] * URIC ACID, SERUM (11/09/2020 10:53 AM EDT) Uric Acid Serum 5.0 2.5 - 7.0 mg/dL [facility] Comment:Therapeutic target f or gout patients: <6.0 mg/dL 11/09/2020 10:5 3 AM EDT 11/09/2020 12:10 PM EDT Narrative Resulting Agency Comment [id number] Vale Walls OPERATIONS RESEARCH ANALYST LABORATORY Final Resul t Performing Organization Address [facility] de Phone Number [facility] [address] [place] [address] * THYROID STIMULATING HORMONE (TSH) WITH FREE T4 REFLEX, SERUM (11/09/2020 10:53 AM EDT) TSH 1.80 0.40 - 4.50 mIU/L [facility] 11/09/2020 10:5 3 AM EDT 11/09/2020 12:10 PM EDT Narrative Resulting Agency Comment [id number] Vale Walls OPERATIONS RESEARCH ANALYST LABORATORY Final Resul t Performing Organization Address [facility] Co de Phone Number [facility] [address] [place] [address] documented in this encounter Visit Diagnoses Diagnosis Memory loss Right foot pain Pain in limb Vitamin D Defiency documented in this encounter Care Teams Manager Line Relationship Specialty Start Date End Date Vale Walls NP [address] [place] [address] PCP - General Geriatrics 07/13/20 Chastity Cortes MD [address] [place] [address] PCP - Backup PCP Geriatrics 10/23/20 03/30/21 Vale Walls NP [address] [place] [address] PCP - Backup PCP Geriatrics 10/06/21 documented as of this encounter
--- OUTSIDE RECORDS SUMMARY | 2024-07-05 12:15 | XMS_ITS | Encounter Summary ---
Author Organization [facility] Address [address] [place] [address] Care Team Providers Care Ammonia Distiller Name Role Phone Alison Francis MD Primary Care Provider Shreyas Orellana MD Primary Care Provider UnavailAshanti Smith MD Primary Care Provider Shreyas Orellana MD Primary Care Provider UnavailAshanti Smith MD Primary Care Provider Vale Walls BI TECHNICAL LEAD Primary Care Provider Chastity Cortes MD Unavailable Vale Walls BI TECHNICAL LEAD Unavailable Encounter Details Date Type Department Care Team (Late st Contact Info) Description 12/15/2014 Orders Only July Internal Medicine [address] [place] [address] Alisno Francis MD [address] [place] [address] Social History Tobacco Use Types Packs/Day Years [...] this encounter Procedures * Due to [place] state law, this [...] 0.40 - 4.50 mIU/L [facility] Comment:{TSH {[id number]) INTERPRETATION SEE NOTE [facility] Comment: {INTERPRETATION {[id number]) TSH within normal range. Consistent with euthyroid patient. Interference from heterophilic antibodies (more common) or autoantibody (less common) should be considered when the TSH value does not fit the clinical picture. TSH with HAMA Treatment (test code 24884) or TSH Antibody (test code 09263) may help identify such interferences. 12/15/2014 11:1 4 AM EDT 12/15/2014 10:17 PM EDT Narrative Resulting Agency Comment [id number] Alison Francis MD LABORATORY Final Result Performing Organization Address City/State/[facility] Co de Phone Number [facility] [address] [place] [address] * (ABNORMAL) VITAMIN D, 25-HYDROXY, LC/MS/MS (12/15/2014 11:14 AM EDT) Vitamin D, 25-OH, Total 22(L) 30 - 100 ng/mL [facility] Comment: {VITAMIN D,25-OH,TOTAL,IA {[id number]) Vitamin D Status ? 25-OH Vitamin D: Deficiency: ?<20 ng/mL Insufficiency: ? 20 - 29 ng/mL Optimal: ? > or = 30 ng/mL For 25-OH Vitamin D testing on patients on D2-supplementation and patients for whom quantitation of D2 and D3 fractions is required, the QuestAssureD(TM) 25-OH VIT D, (D2,D3), LC/MS/MS is recommended: order code 61758 (patients >2yrs). For more information on this test, go to: http://education.[employer]/faq/CZQ557 (This link is being provided for informational/educational purposes only.) 12/15/2014 11:1 4 AM EDT 12/15/2014 10:17 PM EDT Narrative Resulting Agency Comment [id number] us Alison Francis MD LABORATORY Final Result Performing Organization Address [facility] Co de Phone Number [facility] [address] [place] [address] * VITAMIN B12 (CYANOCOBALAMIN), SERUM (12/15/2014 11:14 AM EDT) Vitamin B12 (Cobalamins) 423 200 - 1100 pg/mL [facility] Comment:{VITAMIN B12 {[id number]) 12/15/2014 11:1 4 AM EDT 12/15/2014 10:17 PM EDT Narrative Resulting Agency Comment [id number] Alison Francis MD LABORATORY Final Result Performing Organization Address [facility] de Phone Number [facility] [address] [place] [address] * BASIC METABOLIC PANEL WITH (GFR) (12/15/2014 11:14 AM EDT) Glucose 97 65 - 99 mg/dL [facility] Comment: {GLUCOSE {[id number]) ? Fasting reference interval Urea Nitrogen Blood (BUN) 21 7 - 25 mg/dL [facility] Comment:{UREA NITROGEN (BUN) {[id number]) Creatinine 0.80 0.60 - 0.93 mg/dL [facility] Comment: {CREATININE {[id number]) For patients >49 years of age, the reference limit for Creatinine is approximately 13% higher for people identified as -[place]. GFR 72 > OR = 60 mL/min/1 .73m2 [facility] Comment:{eGFR NON-AFR. AMERI CAN {[id number]) GFR () 83 > OR = 60 mL/min/1 .73m2 [facility] Comment:{eGFR AMERIC AN {[id number]) BUN/Creatinine Ratio NOT APPLICABLE 6 - 22 (calc) [facility] Comment:{BUN/CREATININE RATI O {[id number]) Sodium 137 135 - 146 mmol/L [facility] Comment:{SODIUM {[id number]) Potassium 3.7 3.5 - 5.3 mmol/L [facility] Comment:{POTASSIUM {[id number]) Chloride 101 98 - 110 mmol/L [facility] Comment:{CHLORIDE {[id number]) Carbon dioxide 25 19 - 30 mmol/L [facility] Comment:{CARBON DIOXIDE {[id number]) Calcium 9.7 8.6 - 10.4 mg/dL [facility] Comment:{CALCIUM {[id number]) 12/15/2014 11:1 4 AM EDT 12/15/2014 [...] needs for GFR calculation. Resulting Agency Comment [id number] Alison Francis MD LABORATORY Final Result [facility] [address] [place] [address] * (ABNORMAL) LIPID PANEL WITH REFLEX TO DIRECT LDL (12/15/2014 11:14 AM EDT) Cholesterol 219(H) 125 - 200 mg/dL [facility] Comment:{CHOLESTEROL, TOTAL {[id number]) HDL Cholesterol 49 > OR = 46 mg/dL [facility] Comment:{HDL CHOLESTEROL {[id number]) Triglyceride 165(H) <150 mg/dL [facility] Comment:{TRIGLYCERIDES {[id number]) LDL Cholesterol 137(H) <130 mg/dL (calc) [facility] Comment: {LDL-CHOLESTEROL {[id number]) Desirable range <100 mg/dL for patients with CHD or diabetes and <70 mg/dL for diabetic patients with known heart disease. CHOL/HDL Ratio 4.5 < OR = 5.0 (calc) [facility] Comment:{CHOL/HDLC RATIO {[id number]) Cholesterol Non-HDL 170(H) mg/dL (calc) [facility] Comment: {NON HDL CHOLESTEROL {[id number]) Target for non-HDL cholesterol is 30 mg/dL higher than LDL cholesterol target. 12/15/2014 11:1 4 AM EDT 12/15/2014 10:17 PM EDT Narrative Resulting Agency Comment [id number] us Alison Francis MD LABORATORY Final Result [facility] [address] [place] [address] * URINALYSIS, COMPLETE INCLUDES DIPSTICK AND MICROSCOPIC (12/15/2014 11:14 AM EDT) Color (Urine) YELLOW YELLOW [facility] Comment:{COLOR {[id number]) Appearance (Urine) CLEAR CLEAR [facility] Comment:{APPEARANCE {[id number]) Specific gravity (Urine) 1.014 1.001 - 1.035 [facility] Comment:{SPECIFIC GRAVITY {[id number]) pH (Urine) 6.5 5.0 - 8.0 [facility] Comment:{PH {[id number]) Glucose (Urine) NEGATIVE NEGATIVE [facility] Comment:{GLUCOSE {[id number]) Bilirubin (Urine) NEGATIVE NEGATIVE [facility] Comment:{BILIRUBIN {[id number]) Ketones (Urine) NEGATIVE NEGATIVE [facility] Comment:{KETONES {[id number]) Hemoglobin (Urine) NEGATIVE NEGATIVE [facility] Comment:{OCCULT BLOOD {[id number]) Protein (Urine) NEGATIVE NEGATIVE [facility] Comment:{PROTEIN {[id number]) Nitrite (Urine) NEGATIVE NEGATIVE [facility] Comment:{NITRITE {[id number]) Leukocyte esterase (Urine) NEGATIVE NEGATIVE [facility] Comment:{LEUKOCYTE ESTERASE {[id number]) WBC (Urine) NONE SEEN < OR = 5 /HPF [facility] Comment:{WBC {[id number]) RBC (Urine Sed) NONE SEEN < OR = 2 /HPF [facility] Comment:{RBC {[id number]) Epithelial cells.squamous (Urine sed) 0-5 < OR = 5 /HPF [facility] Comment:{SQUAMOUS EPITHELIAL CELLS {[id number]) Bacteria (Urine) NONE SEEN NONE SEEN /HPF [facility] Comment:{BACTERIA {[id number]) Hyaline casts (Urine sed) NONE SEEN NONE SEEN /LPF [facility] Comment:{HYALINE CAST {[id number]) Service comment 01 SEE NOTE [facility] Comment: {COMMENTS {[id number]) The above test was performed; ??evaluate the urinalysis results with caution. ??The urine specimen was received without a preservative. ??Deterioration of formed elements and/or alteration of chemical constituents may have occurred. 12/15/2014 11:1 4 AM EDT 12/15/2014 10:17 PM EDT Narrative Resulting Agency Comment [id number] us Alison Francis MD LAB SAME DAY RESULT Final Resul t [facility] [address] [place] [address] * CBC INCLUDES DIFFERENTIAL AND PLATELET COUNT (12/15/2014 11:14 AM EDT) WBC 6.6 3.8 - 10.8 Thousand/u L [facility] Comment:{WHITE BLOOD CELL CO UNT {[id number]) RBC 4.98 3.80 - 5.10 Million/uL [facility] Comment:{RED BLOOD CELL COUN T {[id number]) Hemoglobin 14.3 11.7 - 15.5 g/dL [facility] Comment:{HEMOGLOBIN {[id number]) Hematocrit 44.0 35.0 - 45.0 % [facility] Comment:{HEMATOCRIT {[id number]) MCV 88.2 80.0 - 100.0 fL [facility] Comment:{MCV {[id number]) MCH 28.8 27.0 - 33.0 pg [facility] Comment:{MCH {[id number]) MCHC 32.6 32.0 - 36.0 g/dL [facility] Comment:{MCHC {[id number]) RDW 13.9 11.0 - 15.0 % [facility] Comment:{RDW {[id number]) PLT 208 140 - 400 Thousand/u L [facility] Comment:{PLATELET COUNT {[id number]) MPV 8.3 7.5 - 11.5 fL [facility] Comment:{MPV {[id number]) Neutrophils # 3505 1500 - 7800 cells/uL [facility] Comment:{ABSOLUTE NEUTROPHIL S {[id number]) Lymphocytes # 2409 850 - 3900 cells/uL [facility] Comment:{ABSOLUTE LYMPHOCYTE S {[id number]) Monocytes # 495 200 - 950 cells/uL [facility] Comment:{ABSOLUTE MONOCYTES {[id number]) Eosinophils # 139 15 - 500 cells/uL [facility] Comment:{ABSOLUTE EOSINOPHIL S {[id number]) Basophils # 53 0 - 200 cells/uL [facility] Comment:{ABSOLUTE BASOPHILS {[id number]) Neutrophils % 53.1 % [facility] Comment:{NEUTROPHILS {[id number]) Lymphocytes % 36.5 % [facility] Comment:{LYMPHOCYTES {[id number]) Monocytes % 7.5 % [facility] Comment:{MONOCYTES {[id number]) Eosinophils % 2.1 % [facility] Comment:{EOSINOPHILS {[id number]) Basophils % 0.8 % [facility] Comment:{BASOPHILS {[id number]) 12/15/2014 11:1 4 AM EDT 12/15/2014 10:17 PM EDT Narrative Resulting Agency Comment [id number] us Alison Francis MD LAB SAME DAY RESULT Final Resul t [facility] [address] [place] [address] documented in this encounter Visit Diagnoses Diagnosis [...] documented as of this encounter Care Teams Ammonia Distiller Relationship Specialty Start Date End Date Alison Francis MD PCP - General 03/20/10 09/01/15 Shreyas Orellana MD PCP - General Internal Medicine 09/02/15 07/07/19 Ashanti Kumar MD PCP - General Family Medicine 07/08/19 07/09/19 Shreyas Orellana MD PCP - General Internal Medicine 07/10/19 09/06/19 Ashanti Kumar MD PCP - General Family Medicine 09/07/19 07/12/20 Vale Walls NP [address] [place] [address] PCP - General Geriatrics 07/13/20 Chastity Cortes MD [address] [place] [address] PCP - Backup PCP Geriatrics 10/23/20 03/30/21 Vale Walls NP [address] [place] [address] PCP - Backup PCP Geriatrics 10/06/21 documented as of this encounter
--- OUTSIDE RECORDS SUMMARY | 2024-07-05 12:15 | XMS_ITS | Encounter Summary ---
Author Organization [facility] Address [address] [place] [address] Care Team Providers Care Safety Tech Name Role Phone Alison Francis MD Primary Care Provider [phone] Alison Francis MD Primary Care Provider Shreyas Orellana MD Primary Care Provider UnavailAshanti Smith MD Primary Care Provider Shreyas Orellana MD Primary Care Provider UnavailAshanti Smith MD Primary Care Provider Vale Walls GROUND INSTRUCTOR BASIC Primary Care Provider Chastity Cortes MD Unavailable Vale Walls GROUND INSTRUCTOR BASIC Unavailable Encounter Details Date Type Department Care Team (Late st Contact Info) Description 04/04/2008 Orders Only May Internal Medicine [address] [place] [id number] Alison Francis MD [address] [place] [address] [id number] Social History Tobacco Use Types Packs/Day Years [...] this encounter Procedures * Due to [place] law, this organization might not be sharing negative HIV tests. Procedure Name Priority Date/Time Associated Diagnosis Comments CARDIAC RISK/LIPID PROFILE I Routine 04/04/2008 Hypertension Fungal Dermatitis BASIC METABOLIC PANEL Routine 04/04/2008 Hypertension Fungal Dermatitis CBC 5 PART DIFF Routine 04/04/2008 Hypertension Fungal Dermatitis documented in this encounter Results * Due to [place] law, this organization might not be sharing [...] documented as of this encounter Care Teams Safety Tech Relationship Specialty Start Date End Date [...] Medicine 09/07/19 07/12/20 Vale Walls NP [address] [place] [address] PCP - General Geriatrics 07/13/20 Chastity Cortes MD [address] [place] [address] PCP - Backup PCP Geriatrics 10/23/20 03/30/21 Vale Walls NP [address] [place] [address] PCP - Backup PCP Geriatrics 10/06/21 documented as of this encounter
--- OUTSIDE RECORDS SUMMARY | 2024-07-05 12:15 | XMS_ITS | Encounter Summary ---
Author Organization [facility] Address [address] [place] [address] Care Team Providers Care Sr. Director Name Role Phone Alison Francis MD Primary Care Provider Shreyas Orellana MD Primary Care Provider UnavailAshanti Smith MD Primary Care Provider [phone] Shreyas Orellana MD Primary Care Provider UnavailAshanti Smith MD Primary Care Provider [phone] Vale Walls MANAGER OF HOSPITAL Primary Care Provider Chastity Cortes MD Unavailable [phone] Vale Walls MANAGER OF HOSPITAL Unavailable Reason for Visit * Reason Comments E-prescribing Refill Request Encounter Details Date Type Department Care Team (Late st Contact Info) Description 05/04/2014 Refill July Internal Medicine [address] [place] [phone] Alison Francis MD [address] [place] [address] E-prescribing Refill Request Social History Tobacco Use [...] documented as of this encounter Care Teams Sr. Director Relationship Specialty Start Date End Date Alison Francis MD PCP - General 03/20/10 09/01/15 Shreyas Orellana MD PCP - General Internal Medicine 09/02/15 07/07/19 Ashanti Kumar MD PCP - General Family Medicine 07/08/19 07/09/19 Shreyas Orellana MD PCP - General Internal Medicine 07/10/19 09/06/19 Ashanti Kumar MD PCP - General Family Medicine 09/07/19 07/12/20 Vale Walls NP [address] [place] [address] PCP - General Geriatrics 07/13/20 Chastity Cortes MD [address] [place] [address] PCP - Backup PCP Geriatrics 10/23/20 03/30/21 Vale Walls NP [address] [place] [address] PCP - Backup PCP Geriatrics 10/06/21 documented as of this encounter
--- OUTSIDE RECORDS SUMMARY | 2024-07-05 12:15 | XMS_ITS | Encounter Summary ---
Author Organization [facility] Address [address] [place] [address] Care Team Providers Care Video Tape Duplicator Name Role Phone Alison Francis MD Primary Care Provider [phone] Alison Francis MD Primary Care Provider [phone] Regan Darling MD Primary Care Provider [phone] Shreyas Orellana MD Primary Care Provider UnavailAshanti Smith MD Primary Care Provider [phone] Shreyas Orellana MD Primary Care Provider UnavailAshanti Smith MD Primary Care Provider [phone] Vale Walls NP Primary Care Provider [phone] Chastity Cortes MD Unavailable [phone] CouVale badillo RIVET TOSSER Unavailable [phone] Encounter Details Date Type Department Care Team (Late st Contact Info) Description 06/12/2007 Orders Only [facility] Internal Medicine [address] [place] [phone] Regan Darling MD [address] [place] [address] Social History Tobacco Use Types Packs/Day Years [...] of this encounter Procedures * Due to [facility] law, this organization might not be sharing negative HIV tests. Procedure Name Priority Date/Time Associated Diagnosis Comments CARDIAC RISK/LIPID PROFILE I Routine 06/12/2007 Hyperlipidemia BASIC METABOLIC PANEL Routine 06/12/2007 Hypertension documented in this encounter Results * Due to [place] [employer] law, this organization might not be sharing negative HIV tests. * (ABNORMAL) BASIC METABOLIC PANEL (06/12/2007) CALCIUM 9.1 8.6 - 10.2 MG/DL [facility] (CLIA# [id number]) BUN 24 7 - 25 MG/DL [facility] (CLIA# [id number]) CREATININE 0.67 0.50-1.30/ 1.20 MG/DL [facility] (CLIA# [id number]) BUN/Creatinine Ratio 36(H) 6 - 25 [facility] (CLIA# [id number]) Glucose 97 65 - 99 MG/DL [facility] (CLIA# [id number]) SODIUM 141 135 - 146 MMOL/L [facility] (CLIA# [id number]) POTASSIUM 3.9 3.5 - 5.3 MMOL/L [facility] (CLIA# [id number]) CHLORIDE 104 98 - 110 MMOL/L [facility] (CLIA# [id number]) CARBON DIOXIDE 25 21 - 33 MMOL/L [facility] (CLIA# [id number]) 06/12/2007 06/12/2007 8:2 9 PM EDT Regan Darling MD LAB SAME DAY RESULT Final Re sult [facility] (CLIA# [id number]) [address] [place] [address] * (ABNORMAL) CARDIAC RISK/LIPID PROFILE I (06/12/2007) CHOLESTEROL, TOTAL 216(H) 125 - 200 MG/DL [facility] (CLIA# [id number]) TRIGLYCERIDES 272(H) 30 - 149 MG/DL [facility] (CLIA# [id number]) HDL-CHOLESTEROL 33(L) 40 - 77 MG/DL [facility] (CLIA# [id number]) LDL-CHOLESTEROL 129 62 - 130 MG/DL [facility] (CLIA# [id number]) Comment: RISK CATEGORY: ??LDL-CHOLESTEROL GOAL CHD AND CHD RISK EQUIVALENTS: ??<100 MULTIPLE (2+) FACTORS: ??<130 ZERO TO ONE RISK FACTOR: ??<160 CHD RELATIVE RISK RATIO (TOTAL/HDL) 6.55(H) 0.0 - 5.0 [facility] (CLIA# [id number]) Comment:(1.8 X AVERAGE) 06/12/2007 06/12/2007 8:2 9 PM EDT Regan Darling MD LABORATORY Final Result [facility] (CLIA# [id number]) [address] [place] [address] documented in this encounter Visit Diagnoses Diagnosis Hyperlipidemia Other and unspecified hyperlipidemia Hypertension Unspecified essential hypertension documented in this encounter Additional Health Concerns Infection Onset Date Last Indicated Resolved Time COVID-19 Confirmed 07/11/2019 07/11/2019 0 8:12 PM EDT documented as of this encounter Care Teams Video Tape Duplicator Relationship Specialty Start Date End Date Alison Francis MD PCP - General 03/20/10 09/01/15 Alison Francis MD PCP - General 07/02/07 03/19/10 Regan Darling MD [address] [place] [address] PCP - General 06/11/05 07/01/07 Shreyas Orellana MD [address] [place] [address] PCP - General Internal Medicine 09/02/15 07/07/19 Ashanti Kumar MD [address] [place] [address] PCP - General Family Medicine 07/08/19 07/09/19 Shreyas Orellana MD [address] [place] [address] PCP - General Internal Medicine 07/10/19 09/06/19 Ashanti Kumar MD [address] [place] [address] PCP - General Family Medicine 09/07/19 07/12/20 Vale Walls NP [address] [place] [address] PCP - General Geriatrics 07/13/20 Chastity Cortes MD [address] [place] [address] PCP - Backup PCP Geriatrics 10/23/20 03/30/21 Vale Walls NP [address] [place] [address] PCP - Backup PCP Geriatrics 10/06/21 documented as of this encounter
--- OUTSIDE RECORDS SUMMARY | 2024-07-05 12:16 | XMS_ITS | Encounter Summary ---
Author Organization [facility] Address [address] [place] [address] Care Team Providers Care Voting Machine Mechanic Name Role Phone Shreyas Orellana MD Primary Care Provider Unavaila Ashanti Shetty MD Primary Care Provider Vale Walls STEAM BOX HAND Primary Care Provider Chastity Cortes MD Unavailable [phone] [employer] Unavailable [phone] Encounter Details Date Type Department Care Team (Late st Contact Info) Description 07/11/2019 Orders Only [facility] [phone] Andrew Davis MD [address] [place] [address] Social History Tobacco Use Types Packs/Day Years [...] EDT Noted, results and counseling provided by aircraft detail draftsperson MD documented in this encounter Plan of Treatment Not on file documented as of this encounter Goals Goal Patient Goal Type Associated Problems Recent Progress Patient-Stated? Author Blood Pressure < 140/90 Blood Pressure 150/74( 025 1:03 PM EDT) Marsha Farah CMA documented as of this encounter Procedures * Due to [place] [employer] law, this organization might not be sharing negative HIV tests. Procedure Name Priority Date/Time Associated Diagnosis Comments SARS COV 2 RNA(COVID 19), QUALITATIVE NAAT Routine 07/11/2019 11:25 AM EDT Special screening examination for unspecified viral disease documented in this encounter Results * Due to [place] [employer] law, this organization might not be sharing negative HIV tests. * (ABNORMAL) SARS COV 2 RNA(COVID 19), QUALITATIVE NAAT (07/11/2019 11:25 AM EDT) SARS-COV-2 RNA DETECTED( A) NOT DETECTED [facility] Comment: A Detected result is considered a positive test result for COVID-19. ??This indicates that RNA from SARS-CoV-2 (formerly 2019-nCoV) was detected, and the patient is infected with the virus and presumed to be contagious. If requested by public health authority, specimen will be sent for additional testing. Due to the current public health emergency, [facility] is receiving a high volume of samples [...] the FDA authorized labeling available on the [employer] website: www.[employer]Covid19. 07/11/2019 11:2 5 AM EDT 07/11/2019 4:43 PM EDT Narrative Resulting Agency Comment [id number] Andrew Davis MD LABORATORY Final Result Performing Organization Address City/State/[facility] Co de Phone Number [facility] [address] [place] [address] documented in this encounter Visit Diagnoses Diagnosis Special screening examination for unspecified viral disease documented in this encounter Additional Health Concerns Infection Onset Date Last Indicated Resolved Time COVID-19 Confirmed 07/11/2019 07/11/2019 0 8:12 PM EDT documented as of this encounter Care Teams Voting Machine Mechanic Relationship Specialty Start Date End Date Shreyas Orellana MD PCP - General Internal Medicine 07/10/19 09/06/19 Ashanti Kumar MD PCP - General Family Medicine 09/07/19 07/12/20 Vale Walls NP [address] [place] [address] PCP - General Geriatrics 07/13/20 Chastity Cortes MD [address] [place] [address] PCP - Backup PCP Geriatrics 10/23/20 03/30/21 Vale Walls NP [address] [place] [address] PCP - Backup PCP Geriatrics 10/06/21 documented as of this encounter
--- OUTSIDE RECORDS SUMMARY | 2024-07-05 12:16 | XMS_ITS | Encounter Summary ---
Author Organization [facility] Address [address] [place] [address] Care Team Providers Care Newspaper Correspondent Name Role Phone Alison Francis MD Primary Care Provider Shreyas Orellana MD Primary Care Provider UnavailAshanti Smith MD Primary Care Provider Shreyas Orellana MD Primary Care Provider UnavailAshanti Smith MD Primary Care Provider Vale Walls OUTPATIENT CODING SPECIALIST Primary Care Provider Chastity Cortes MD Unavailable [phone] Vale Walls OUTPATIENT CODING SPECIALIST Unavailable Encounter Details Date Type Department Care Team (Late st Contact Info) Description 05/26/2011 Orders Only July Internal Medicine [address] [place] [address] Alison Francis MD [address] [place] [id number] Social History Tobacco Use Types Packs/Day Years [...] this encounter Procedures * Due to [place] [employer] law, this organization might not be sharing [...] this encounter Results * Due to [place] [employer] law, this organization might not be sharing negative HIV tests. * (ABNORMAL) VITAMIN D, 25-HYDROXY, LC/MS/MS (05/26/2011 8:47 AM EST) Vitamin D, 25-OH, Total 26(L) 30 - 100 ng/mL [facility] Comment:{VITAMIN D, 25 OH, T OTAL {[id number]) Vitamin D, D3 (Cholecalciferol ) 26 ng/mL [facility] Comment:{VITAMIN D, 25 OH, D 3 {[id number]) Vitamin D, 25-OH, D2 (Calciferol) <4 ng/mL [facility] Comment: {VITAMIN D, 25 OH, D2 {[id number]) ? 25-OHD3 indicates both endogenous production and [...] 12:22 PM EST Narrative Resulting Agency Comment [id number] Alison Francis MD LABORATORY Final Result Performing Organization Address City/State/[facility] Co de Phone Number [facility] [address] [place] [address] * T4, FREE THYROXINE (05/26/2011 8:47 AM EST) FT4 1.1 0.8 - 1.8 ng/dL [facility] Comment:{T4, FREE {[id number]) 05/26/2011 8:47 AM EST 05/26/2011 12:22 PM EST Narrative Resulting Agency Comment [id number] Alison Francis MD LABORATORY Final Result [facility] [address] [place] [address] * TSH (THYROTROPIN) (05/26/2011 8:47 AM EST) Pathologist [facility] TSH 2.04 0.40 - 4.50 mIU/L [facility] Comment:{TSH {[id number]) 05/26/2011 8:47 AM EST 05/26/2011 12:22 PM EST Narrative Resulting Agency Comment [id number] Alison Francis MD LABORATORY Final Result Performing Organization Address City/[facility]/ZIP Co de Phone Number [facility] [address] [place] [address] * CBC 5 PART DIFF (05/26/2011 8:47 AM EST) Pathologist [facility] WBC 6.6 3.8 - 10.8 Thousand/u L [facility] Comment:{WHITE BLOOD CELL CO UNT {[id number]) RBC 4.88 3.80 - 5.10 Million/uL [facility] Comment:{RED BLOOD CELL COUN T {[id number]) Hemoglobin 14.5 11.7 - 15.5 g/dL [facility] Comment:{HEMOGLOBIN {[id number]) Hematocrit 43.0 35.0 - 45.0 % [facility] Comment:{HEMATOCRIT {[id number]) MCV 88.0 80.0 - 100.0 fL [facility] Comment:{MCV {[id number]) MCH 29.6 27.0 - 33.0 pg [facility] Comment:{MCH {[id number]) MCHC 33.7 32.0 - 36.0 g/dL [facility] Comment:{MCHC {[id number]) RDW 13.4 11.0 - 15.0 % [facility] Comment:{RDW {[id number]) PLT 236 140 - 400 Thousand/u L [facility] Comment:{PLATELET COUNT {[id number]) MPV 8.7 7.5 - 11.5 fL [facility] Comment:{MPV {[id number]) Neutrophils # 4382 1500 - 7800 cells/uL [facility] Comment:{ABSOLUTE NEUTROPHIL S {[id number]) Lymphocytes # 1604 850 - 3900 cells/uL [facility] Comment:{ABSOLUTE LYMPHOCYTE S {[id number]) Monocytes # 436 200 - 950 cells/uL [facility] Comment:{ABSOLUTE MONOCYTES {[id number]) Eosinophils # 132 15 - 500 cells/uL [facility] Comment:{ABSOLUTE EOSINOPHIL S {[id number]) Basophils # 46 0 - 200 cells/uL [facility] Comment:{ABSOLUTE BASOPHILS {[id number]) Neutrophils % 66.4 % [facility] Comment:{NEUTROPHILS {[id number]) Lymphocytes % 24.3 % [facility] Comment:{LYMPHOCYTES {[id number]) Monocytes % 6.6 % [facility] Comment:{MONOCYTES {[id number]) Eosinophils % 2.0 % [facility] Comment:{EOSINOPHILS {[id number]) Basophils % 0.7 % [facility] Comment:{BASOPHILS {[id number]) 05/26/2011 8:47 AM EST 05/26/2011 12:22 PM EST Narrative Resulting Agency Comment [id number] us Alison Francis MD LAB SAME DAY RESULT Final Resul t [facility] [address] [place] [address] * (ABNORMAL) BASIC METABOLIC PANEL W/GLOMERULAR FILTRATION RATE (EGFR) (05/26/2011 8:47 AM EST) Glucose 99 65 - 99 mg/dL [facility] Comment: {GLUCOSE {[id number]) ? Fasting reference interval Urea Nitrogen Blood (BUN) 31(H) 7 - 25 mg/dL [facility] Comment:{UREA NITROGEN (BUN) {[id number]) Creatinine 1.33(H) 0.60 - 0.93 mg/dL [facility] Comment: {CREATININE {[id number]) For patients >49 years of age, the reference limit for Creatinine is approximately 13% higher for people identified as -[place]. GFR 40(L) > OR = 60 mL/min/1. 73m2 [facility] Comment:{eGFR NON-AFR. AMERI CAN {[id number]) GFR () 46(L) > OR = 60 mL/min/1. 73m2 [facility] Comment:{eGFR AMERIC AN {[id number]) BUN/Creatinine Ratio 23(H) 6 - 22 (calc) [facility] Comment:{BUN/CREATININE RATI O {[id number]) Sodium 140 135 - 146 mmol/L [facility] Comment:{SODIUM {[id number]) Potassium 3.9 3.5 - 5.3 mmol/L [facility] Comment:{POTASSIUM {[id number]) Chloride 107 98 - 110 mmol/L [facility] Comment:{CHLORIDE {[id number]) Carbon dioxide 21 21 - 33 mmol/L [facility] Comment:{CARBON DIOXIDE {[id number]) Calcium 9.9 8.6 - 10.4 mg/dL [facility] Comment:{CALCIUM {[id number]) 05/26/2011 8:47 AM EST 05/26/2011 12:22 [...] needs for GFR calculation. Resulting Agency Comment [id number] us Alison Francis MD LABORATORY Final Result [facility] [address] [place] [address] * ASPARTATE AMINOTRANSFERASE (AST), SERUM (05/26/2011 8:47 AM EST) AST (SGOT) 26 10 - 35 U/L [facility] Comment:{AST {[id number]) 05/26/2011 8:47 AM EST 05/26/2011 12:22 PM EST Narrative Resulting Agency Comment [id number] Alison Francis MD LAB SAME DAY RESULT Final Resul t Performing Organization Address [facility] Co de Phone Number [facility] [address] [place] [address] * (ABNORMAL) LIPID PANEL + CARDIAC RISK WITH REFLEX TO LDL DIRECT (05/26/2011 8:47 AM EST) Cholesterol 233(H) 125 - 200 mg/dL [facility] Comment:{CHOLESTEROL, TOTAL {[id number]) HDL Cholesterol 59 > OR = 46 mg/dL [facility] Comment:{HDL CHOLESTEROL {[id number]) Triglyceride 113 <150 mg/dL [facility] Comment:{TRIGLYCERIDES {[id number]) LDL Cholesterol 151(H) <130 mg/dL (calc) [facility] Comment: {LDL-CHOLESTEROL {[id number]) Desirable range <100 mg/dL for patients with CHD or diabetes and <70 mg/dL for diabetic patients with known heart disease. CHOL/HDL Ratio 3.9 < OR = 5.0 (calc) [facility] Comment:{CHOL/HDLC RATIO {[id number]) 05/26/2011 8:47 AM EST 05/26/2011 12:22 PM EST Narrative Resulting Agency Comment [id number] us Alison Francis MD LABORATORY Final Result Performing Organization Address [facility] Co de Phone Number [facility] [address] [place] [address] * VITAMIN B12 (CYANOCOBALAMIN), SERUM (05/26/2011 8:47 AM EST) Vitamin B12 (Cobalamins) 922 200 - 1100 pg/mL [facility] Comment:{VITAMIN B12 {[id number]) 05/26/2011 8:47 AM EST 05/26/2011 12:22 PM EST Narrative Resulting Agency Comment [id number] Alison Francis MD LABORATORY Final Result [facility] [address] [place] [address] documented in this encounter Visit Diagnoses Diagnosis [...] documented as of this encounter Care Teams Newspaper Correspondent Relationship Specialty Start Date End Date Alison Francis MD PCP - General 03/20/10 09/01/15 Shreyas Orellana MD PCP - General Internal Medicine 09/02/15 07/07/19 Ashanti Kumar MD PCP - General Family Medicine 07/08/19 07/09/19 Shreyas Orellana MD PCP - General Internal Medicine 07/10/19 09/06/19 Ashanti Kumar MD PCP - General Family Medicine 09/07/19 07/12/20 Vale Walls NP [address] [place] [address] PCP - General Geriatrics 07/13/20 Chastity Cortes MD [address] [place] [id number] PCP - Backup PCP Geriatrics 10/23/20 03/30/21 Vale Walls NP [address] [place] [address] PCP - Backup PCP Geriatrics 10/06/21 documented as of this encounter
--- OUTSIDE RECORDS SUMMARY | 2024-07-05 12:16 | XMS_ITS | Continuity of Care Document ---
Author Organization [facility] Address [address] [place] [address] Care Team Providers Care Exterior Interior Specialist Name Role Phone Vale Walls NP Primary Care Provider Vale Walls NP Unavailable [phone] Encounters Date Type Department Care Team Description 06/14/[address] [facility] [address] [place] [phone] Vale Walls NP Patient Questions 06/07/2024 Telephone [facility] [address] [place] [address] [phone] Vale Walls NP Information 06/04/2024 1:15 PM EDT Home Visit [address] [address] Vale Walls NP Chronic right-sided low back pain with bilateral sciatica; Seizures; Primary insomnia; Mood disorder; Mild cognitive impairment; Hypertension; Stage 2 chronic kidney disease; Slow transit constipation; Major depressive disorder, recurrent episode, in partial remission; Unspecified dementia, unspecified severity, without behavioral disturbance, psychotic disturbance, mood disturbance, and anxiety 06/03/[address] [facility] [address] [place] [address] Vale Walls NP Appointment 06/03/[address] [address] Vale Walls NP Back Pain ; Return Call 05/28/2024 Erroneous Encounter [facility] [address] [place] [address] Coujustino, Vale Wilson NP 05/23/[address] [facility] [address] [place] [address] Couture, Vale Wilson NP Refill Request 05/15/[address] [facility] [address] [place] [address] Coujustino, Vale Wilson NP Patient Questions 05/14/2024 Orders Only [facility] [address] [place] [address] Couture, Vale Wilson NP 05/14/2024 Refill [facility] [address] [place] [phone] Coujustino, Vale Wilson NP E-prescribing Refill Request 04/11/2024 Refill [facility] Neurology [address] [facility] [address] [place] [address] Jillian Byrnes CRNP E-prescribing Refill Request 04/11/[address] [facility] [address] [place] [address] Couture, Vale Wilson NP E-prescribing Refill Request 04/11/[address] [facility] [address] [place] [address] Couture, Vale Wilson NP Error 04/09/2024 Telephone [facility] [address] [place] [address] Coujustino, Vale Wilson NP Results 04/09/2024 Orders Only [facility] [address] [place] [address] Chelsea Jacobs NP 04/05/2024 Refill [facility] Orthopedic Surgery [address] 123 [facility] [address] [place] [address] Fady Berg MD Med Change Request 03/31/2024 Refill [facility] Neurology [address] [facility] [address] [place] [address] Jillian Byrnes CRNP E-prescribing Refill Request 03/26/[address] [address] Vale Walls NP Pain; Results 03/22/2024 9:45 AM EST Radiology [facility] [address] [place] [address] At risk of fracture due to osteoporosis 03/15/2024 Orders Only [address] [address] Vale Walls NP 03/14/2024 2:40 PM EST Consult (Initial) [facility] Orthopedic Surgery [address] [place] [address] [place] [phone] Fady Berg MD Low back pain of over 3 months duration (Primary Dx); Closed nondisplaced zone I fracture of sacrum, initial encounter 03/11/2024 1:30 PM EST Home Visit [address] [address] Vale Walls NP Closed nondisplaced zone I fracture of sacrum with routine healing, subsequent encounter; Slow transit constipation; Hypertension; Bright red blood per rectum; At risk of fracture due to osteoporosis 03/11/[address] [address] Vale Walls NP Patient Questions 03/07/2024 Office Visit NON FC SA NON FC UNK Provider, Unknown 03/07/[address] [address] Vale Walls NP Patient Questions ; Sciatica 03/04/2024 Refill [facility] [address] [place] [phone] Vale Walls NP E-prescribing Refill Request 03/02/2024 7:30 PM EST Office Visit [address] [address] Chalino Ye MD Acute right-sided low back pain with right-sided sciatica (Primary Dx) 03/02/[address] [address] Rocio Gonzalez PA Leg Pain 03/02/2024 Telephone [facility] Night Triage [address] [place] [address] Vale Walls NP Labs/orders 03/01/2024 2:30 PM EST Radiology [address] [address] Gluteal pain 03/01/2024 1:30 PM EST Office Visit [address] [address] Rocio Gonzalez PA Lumbosacral radiculopathy (Primary Dx); Gluteal pain 03/01/2024 Telephone [facility] [address] [place] [address] Vale Walls NP Leg Pain 01/18/2024 9:00 AM EDT Office Visit [address] [address] Jennifer Robles MD Urinary pain (Primary Dx); Acute cystitis without hematuria 12/13/2023 Refill [facility] [address] [place] [phone] Vale Walls NP Refill Request 12/11/2023 Telephone [facility] [address] [place] [address] Vale Walls NP Medication Problem 12/07/2023 Refill [facility] [address] [place] [phone] Vale Walls NP Refill Request 11/29/2023 Refill [facility] Neurology [address] [place] [address] [place] [phone] Stacie Berry PA E-prescribing Refill Request 11/20/[address] [address] Vale Walls NP E-prescribing Refill Request 10/25/[address] [address] Vale Walls NP E-prescribing Refill Request 10/25/2023 10:45 AM EDT Home Visit [address] [address] Vale Walls NP Seasonal allergic rhinitis due to pollen; Primary insomnia; Situational mixed anxiety and depressive disorder; Hypertension; Medication management 08/23/2023 4:15 PM EDT CPE - Comprehensive Physical Exam [address] [address] Vale Walls NP Restless leg (Primary Dx); Encounter for Medicare annual wellness exam; Unspecified dementia, unspecified severity, without behavioral disturbance, psychotic disturbance, mood disturbance, and anxiety 07/30/2023 Refill [facility] Neurology [address] [place] [address] [address] [place] [address] Areli Farley MD E-prescribing Refill Request 07/30/[address] [address] Vale Walls NP E-prescribing Refill Request 06/08/[address] [address] Vale Walls NP E-prescribing Refill Request 05/19/2023 4:15 PM EST Office Visit [address] [address] Azalia Bang PA Allergic conjunctivitis of both eyes (Primary Dx) 05/17/2023 12:45 PM EST Home Visit [address] [address] Vale Walls NP Seasonal allergic rhinitis due to pollen; Vitamin D Defiency; Vitamin B12 deficiency; Stage 2 chronic kidney disease; Seizures; Primary insomnia; Mood disorder; Mild cognitive impairment; Hypertension; Bilateral impacted cerumen; Arteriosclerosis of aorta; Major depressive disorder, recurrent, in full remission 05/05/[address] [address] Vale Walls NP E-prescribing Refill Request 03/21/[address] [address] Vale Walls NP Med Change Request 02/23/2023 Refill [facility] Neurology [address] [place] [phone] Areli Farley MD E-prescribing Refill Request 01/24/2023 11:30 AM EST Home Visit [facility] [address] [place] [address] Vale Walls NP Mild cognitive impairment; Primary insomnia; Hypertension; Vitamin B12 deficiency; Stage 2 chronic kidney disease; Seizures; Mood disorder; Seasonal allergic rhinitis due to pollen 01/19/2023 Refill [facility] Neurology [address] [address] Areli Farley MD Med Change Request 01/04/2023 11:45 AM EDT Office Visit [address] [address] Chalino Ye MD Vaginal bleeding (Primary Dx); Hematuria, unspecified type; Rectal bleeding 01/04/2023 Telephone [facility] [address] [place] [address] Vale Walls NP Hematuria ; UTI 12/24/2022 Refill [facility] Neurology [address] [phone] Areli Farley MD Med Change Request 12/13/2022 Telephone [facility] Neurology [address] [phone] Areli Farley MD Follow Up 12/02/2022 9:30 AM EDT Consult (Initial) [facility] Neurology [address] [place] [address] [address] [place] [address] Areli Farley MD Mild cognitive impairment (Primary Dx) 11/15/[address] [address] Vale Walls NP Results 11/14/2022 Orders Only [address] [address] Vale Walls NP 11/01/2022 12:45 PM EDT Home Visit [place] [phone] Vale Walls NP Memory loss; Hypertension; Situational mixed anxiety and depressive disorder; Primary insomnia 09/19/[address] [phone] Vale Walls NP E-prescribing Refill Request 09/19/[address] [address] Vale Walls NP Rash (/); Refill Request 08/16/[address] [address] Vale Walls NP Refill Request 08/12/2022 7:15 PM EDT Office Visit [address] [address] Jennifer Juarez, PA Acute conjunctivitis of left eye, unspecified acute conjunctivitis type (Primary Dx) 07/19/2022 9:00 AM EDT Home Visit [address] [address] Vale Walls NP Vitamin D Defiency; Vitamin B12 deficiency; Stage 2 chronic kidney disease; Situational mixed anxiety and depressive disorder; Seizures; Mood disorder; Hypertension; Candidiasis; Bilateral impacted cerumen; Chronic right-sided low back pain with bilateral sciatica 07/12/2022 Refill [facility] [address] [place] [address] Vale Walls NP E-prescribing Refill Request 06/23/2022 Telephone [facility] [address] [place], [place] [phone] Vale Walls NP Diarrhea 06/06/2022 12:45 PM EDT Office Visit [facility] Optometry [address] [place] [phone] Lukasz Mensah, OD S/P bilateral cataract extraction 05/06/2022 10:50 AM EST Office Visit [facility] Ophthalmology [address] [place] [phone] Kavon Haskins MD Pseudophakia 05/05/2022 8:30 AM EST Surgery/Major Procedure [facility] [address] [place] [phone] Kavon Haskins MD Nuclear senile cataract of left eye 04/15/2022 9:30 AM EST Office Visit [facility] Ophthalmology [address] [place] [phone] Kavon Haskins MD Presence of intraocular lens; Nuclear senile cataract of left eye; Pseudophakia 04/14/2022 7:30 AM EST Surgery/Major Procedure [facility] [address] [place] [phone] Kavon Haskins MD Nuclear senile cataract of right eye 04/11/2022 Orders Only [facility] Cardiology [address] [facility] [address] [place] [phone] Cornelio Barraza DO 04/11/2022 Orders Only [facility] Pre-Admission Testing 123 [facility] [address] [place] [phone] Gail Barber NP 04/11/2022 Telephone [facility] [address] [facility] [address] [place] [address] Gail Barber NP EKG 04/11/2022 10:00 AM EST Office Visit [facility] Pre-Admission Testing [address] [place] [address] Gail Barber NP Preop examination (Primary Dx); Nuclear senile cataract of both eyes; Hypertension, benign; Other hyperlipidemia; Arteriosclerosis of aorta; Memory loss; Seizures; Stage 2 chronic kidney disease; Situational mixed anxiety and depressive disorder; Mood disorder 03/22/2022 12:30 PM EST Home Visit [facility] [address] [place] [address] Vale Walls NP Mood disorder; Hypertension; Seizures; Arteriosclerosis of aorta; Adjustment insomnia 02/28/2022 Minor Procedure/Test [facility] [address] [place] [phone] Kavon Haskins MD 02/14/2022 10:20 AM EST Minor Procedure/Test [facility] Ophthalmology [address] [place] [phone] Nuclear sclerosis, bilateral (Primary Dx) 12/24/2021 3:30 PM EDT Consult (Initial) [facility] Ophthalmology [address] [place] [phone] Kavon Haskins MD Nuclear sclerosis, bilateral; Keratoconjunctivitis sicca not specified as Sjogren's, bilateral; Dermatochalasis of both upper eyelids 12/13/2021 2:00 PM EDT Office Visit [facility] Optometry [address] [place] [phone] Kayy Reid, OD Encounter for vision examination with abnormal findings (Primary Dx); Presbyopia of both eyes; Hypermetropia of both eyes; Regular astigmatism of both eyes; Nuclear sclerotic cataract of both eyes; Essential hypertension; Dry eye syndrome of both eyes 11/28/2021 Refill [facility] [address] [place] [phone] Vale Walls NP E-prescribing Refill Request 11/02/[address] [address] Vale Walls NP E-prescribing Refill Request 10/31/[address] [address] Vale Walls NP E-prescribing Refill Request 10/06/2021 10:15 AM EDT Office Visit [facility] [address] [place] [address] Vale Walls NP Stage 2 chronic kidney disease (Primary Dx); Adjustment insomnia; Situational mixed anxiety and depressive disorder 07/21/2021 10:15 AM EDT [facility] [address] [place] [address] Vale Walls NP Hypertension; Stage 2 chronic kidney disease; Acute bilateral low back pain with bilateral sciatica; Vitamin B12 deficiency; Candidiasis 07/14/2021 Telephone [facility] [address] [place] [address] Vale Walls NP Geriatric Primary Care 07/06/[address] [phone] Vale Walls NP E-prescribing Refill Request 07/05/2021 Orders Only [facility] [address] [place] [address] Vale Walls NP 06/24/[address] [phone] Vale Walls NP E-prescribing Refill Request 06/22/2021 Orders Only [facility] [address] [place] [address] Vale Walls NP 06/17/2021 Telephone [facility] [address] [place] [address] Vale Walls NP Patient Questions 05/06/2021 9:00 AM EST Home Visit [address] [address] Vale Walls NP Advanced care planning/counseling discussion; Arteriosclerosis of aorta; Stage 2 chronic kidney disease; Vitamin B12 deficiency; Seizures; Memory loss; Hypertension; Vitamin D Defiency 04/02/[address] [phone] Evette Roa NP E-prescribing Refill Request 12/17/[address] [address] Vale Walls NP Geriatric Primary Care 12/16/2020 9:00 AM EDT Home Visit [address] [address] Vale Walls NP Memory loss; Stage 2 chronic kidney disease; Hypertension; Advanced care planning/counseling discussion; Vitamin D Defiency; Vitamin B12 deficiency 11/30/[address] [facility] [address] [place] [phone] Kayy Reid, OD Prescription Assistance 11/27/2020 11:30 AM EDT Office [facility] [address] [place] [phone] Kayy Reid, OD Encounter for vision examination with abnormal findings (Primary Dx); Presbyopia of both eyes; Hypermetropia of both eyes; Regular astigmatism of both eyes; Essential hypertension; Nuclear sclerotic cataract of both eyes; Dry eye syndrome of both eyes 11/09/2020 Orders Only [facility] [address] Vale Walls NP 11/09/2020 11:15 AM EDT Radiology [facility] [address] [place] [address] Osteoporosis, unspecified osteoporosis type, unspecified pathological fracture presence 11/07/[address] [place] [address] Ashanti Kumar MD E-prescribing Refill Request 10/14/2020 9:00 AM EDT Home Visit [address] [address] Vale Walls NP Advanced care planning/counseling discussion; Hypertension; Memory loss; Stage 2 chronic kidney disease; Vitamin B12 deficiency; Vitamin D Defiency 08/10/[address] [phone] Ashanti Kumar MD E-prescribing Refill Request 07/14/[address] [phone] Ashanti Kumar MD E-prescribing Refill Request 07/13/2020 Travel 07/13/2020 9:00 AM EDT Home Visit [address] [address] Vale Walls NP Hypertension; Stage 2 chronic kidney disease; Vitamin B12 deficiency; Vitamin D Defiency; Other hyperlipidemia; Memory loss; Age-related osteoporosis without current pathological fracture; Seizures; Arteriosclerosis of aorta; Right foot pain; Advanced care planning/counseling discussion 06/30/2020 Travel 06/30/2020 Telephone [facility] [address] [place] [phone] Ashanti Kumar MD Change of PCP 05/15/[address] [phone] Ashanti Cornejo PA-C E-prescribing Refill Request 04/21/2020 Travel 04/19/[address] [phone] Evette Roa NP E-prescribing Refill Request 04/13/2020 Travel 04/13/2020 8:45 AM EST Office Visit [address] [phone] Evette Roa NP Memory loss (Primary Dx); Hypertension 03/24/[address] [phone] Andrew Davis MD E-prescribing Refill Request 03/24/[address] [address] Ashanti Kumar MD E-prescribing Refill Request 03/09/[address] [address] Ashanti Kumar MD BP Follow Up 03/09/2020 Travel 03/09/2020 10:30 AM EST Nurse Visit [address] [address] Tami Mas RN Hypertension, unspecified type (Primary Dx) 02/28/2020 Orders Only [address] [address] Ashanti Kumar MD Medications 02/28/2020 Orders Only [address] [address] Ashanti Kumar MD 02/28/2020 Travel 02/28/2020 10:30 AM EST Nurse Visit [address] [address] Tami Mas RN Hypertension, unspecified type (Primary Dx) 01/31/[address] [address] Ashanti Kumar MD BP Follow Up 01/31/2020 Orders Only [address] [address] Mirna Almaraz RN 01/31/2020 Travel 01/31/2020 1:30 PM EST Nurse Visit [address] [address] Mirna Almaraz, DOUG Hypertension; Hypertension, unspecified type 01/03/[address] [address] Andrew Davis MD BP Follow Up 01/03/2020 Travel 01/03/2020 1:30 PM EDT Nurse Visit [address] [address] Tami Mas RN Hypertension, unspecified type (Primary Dx) 01/01/[address] [address] Evette Roa, BETZAIDA Results 12/27/2019 Orders Only [facility] [address] [place] [phone] Shreyas Orellana MD 12/27/2019 Orders Only [address] [address] Ashanti Kumar MD 12/20/[address] [address] Ashanti Kumar MD Labs/orders 12/20/2019 Travel 12/20/2019 11:15 AM EDT CPE - Comprehensive Physical Exam [address] [address] Ashanti Kumar MD Routine history and physical examination of adult (Primary Dx); Need for vaccination; Vitamin D Defiency; Vitamin B12 deficiency; Vitamin B12 deficiency; Other hyperlipidemia; Hypertension; Chronic Renal Insufficiency; Osteoporosis, unspecified osteoporosis type, unspecified pathological fracture presence; Memory loss 12/12/[address] [address] Ashanti Kumar MD E-prescribing Refill Request 10/03/[address] [address] Ashanti Kumar MD Covid 09/19/2019 Travel 09/17/2019 Refill [facility] [address] [place] [phone] Ashanti Kumar MD Refill Request 07/14/2019 Telephone [facility] [address] [place] [phone] Oskar Mckeon MD Information 07/14/2019 Telephone [facility] [address] [place] [phone] Oskar Mckeon MD Information 07/11/2019 Orders Only [facility] MISCELLANEOUS [phone] Andrew Davis MD 07/11/2019 11:00 AM EDT Office Visit [facility] [address] [place] [phone] Andrew Davis MD SOB (shortness of breath) on exertion (Primary Dx) 07/10/2019 Travel 07/10/2019 Telephone [facility] [address] [place] [phone] Shreyas Orellana MD Shortness of Breath; Fatigue 07/08/2019 Telephone [facility] [address] [place] [address] Shreyas Orellana MD Care Coordination Communication (Covid 19 ) 06/04/2019 Telephone [facility] [address] [place] [phone] Shreyas Orellana MD Labs/orders 06/03/2019 2:00 PM EDT Radiology [facility] X-Ray [address] [place] [address] Pneumonia of left lower lobe due to infectious organism 06/03/2019 1:00 PM EDT Office Visit [facility] [address] [place] [phone] Shreyas Orellana MD Pneumonia of left lower lobe due to infectious organism 06/03/2019 Travel 06/03/2019 Telephone [facility] [address] [place] [phone] Shreyas Orellana MD Weakness ; Nausea ; Sore Throat; Headache ; Fever 11/01/2018 10:30 AM EDT Office Visit [facility] [address] Carissa Barbosa PA Urinary tract infection without hematuria, site unspecified (Primary Dx) 08/29/2018 Refill [facility] [address] [place] [phone] Shreyas Orellana MD Refill Request 08/16/2018 Telephone [facility] [address] [place] [phone] Shreyas Orellana MD Results 08/08/2018 Orders Only [facility] [address] [place] [phone] Shreyas Orellana MD 08/08/2018 1:00 PM EDT Office Visit [facility] [address] [place] [phone] Shreyas Orellana MD Fatigue, unspecified type (Primary Dx) 08/06/2018 Telephone [facility] [address] [place] [phone] Shreyas Orellana MD Dizziness 07/24/2018 2:00 PM EDT Minor Procedure/Test [facility] [address] [place] [phone] Sebastian Wasserman MD Torn earlobe, left, subsequent encounter (Primary Dx) 07/06/2018 1:45 PM EDT Consult (Initial) [facility] [address] [place] [phone] Sebastian Wasseramn MD Torn earlobe, left, initial encounter (Primary Dx) 06/04/2018 Orders Only [facility] [address] [place] [phone] Shreyas Orellana MD 06/04/2018 Telephone [facility] [address] [place] [address] Shreyas Orellana MD Ear Problem 10/10/2017 Refill [facility] [place] [address] Shreyas Orellana MD E-prescribing Refill Request 07/07/[address] [address] Brie Woods RN Nausea 07/07/2017 9:45 AM EDT Radiology [facility] [address] [address] 07/07/2017 9:15 AM EDT Office Visit [address] [address] Lizy Burris NP Lower resp. tract infection (Primary Dx) 05/19/2017 Telephone [facility] [address] [place] [phone] Long Eden MD Cancellation 04/14/2017 9:40 AM EST Office Visit [facility] [place] [address] Shreyas Orellana MD Bacterial infection (Primary Dx) 04/14/2017 Telephone [address] [place] [address] [place] [address] Shreyas Orellana MD Influenza; Eye Problem 01/21/2017 Refill [facility] [place] [address] Melanie Dewey NP E-prescribing Refill Request 11/26/2016 Refill [facility] [place] [address] Shreyas Orellana MD E-prescribing Refill Request 10/06/2016 Telephone [facility] [place] [address] Shreyas Orellana MD Results 10/04/2016 Telephone [facility] [address] [place] [address] Long Eden MD Endoscopy Request (lower And/or Upper) 10/04/2016 Orders Only [facility] [place] [address] [place] [address] Shreyas Orellana MD 10/04/2016 1:20 PM EDT CPE - Comprehensive Physical Exam [address] [place] [address] [place] [address] Shreyas Orellana MD Routine history and physical examination of adult (Primary Dx); Need for vaccination; Hypertension; Vitamin D Defiency; Insomnia, unspecified type; Osteoporosis, unspecified osteoporosis type, unspecified pathological fracture presence 09/27/2016 Letter/Form [address] [place] [address] Shreyas Orellana MD 09/22/2016 Letter/Form [address] [place], [place] [phone] Shreyas Orellana MD 09/09/2016 Refill July [address] [place] [address] Shreyas Orellana MD E-prescribing Refill Request 09/08/2016 Orders Only July [address] [address] Shreyas Orellana MD 09/05/2016 Telephone July [address] [place] [phone] Shreyas Orellana MD Results (potassium, Vit D ) 08/30/2016 Orders Only July [address] [place] [address] Shreyas Orellana MD 08/18/2016 Orders Only July [address] [place] [address] Shreyas Orellana MD 08/10/2016 Refill July [address] [place] [address] Shreyas Orellana MD E-prescribing Refill Request 05/12/2016 Refill July Internal [facility] [place] [address] Alison Francis MD E-prescribing Refill Request 04/29/2016 10:15 AM EST Office Visit [facility] Optometry [address] [place] [address] AmadousaskiaDima S, OD Encounter for ophthalmic examination and evaluation (Primary Dx); Cortical senile cataract, bilateral [H25.013]; Senile nuclear sclerosis, bilateral [H25.13]; Dermatochalasis of eyelids of both eyes [H02.833, H02.836]; Hypermetropia, bilateral [H52.03]; Astigmatism, regular, bilateral [H52.223]; Presbyopia 08/27/2015 11:15 AM EDT Office Visit [facility] [address] [place] [phone] Malika Ventura, BETZAIDA Bladder infection (Primary Dx); Dysuria 07/13/2015 Orders Only July Internal [facility] [place] [address] Alison Francis MD 07/08/2015 Orders Only July [facility] [place] [address] Alison Francis MD 07/08/2015 Telephone [address] [place] [address] Alison Francis MD Results (potassium) 07/07/2015 Orders Only July [address] [place] [address] Alison Francis MD Medications 07/07/2015 11:20 AM EDT CPE - Comprehensive Physical Exam July [facility] [place] [address] Alison Francis MD Routine general medical examination at a health care facility (Primary Dx); Hypertension; Osteoporosis; Hyperlipidemia; LDL Goal < 130; Vitamin B12 deficiency; Chronic Renal Insufficiency 05/18/2015 9:15 AM EST Radiology [facility] X-Ray [address] [place] [address] Right foot pain 05/18/2015 9:40 AM EST Consult (Initial) [facility] Podiatry [address] [place] [address] Gt Vega, ZOË Other secondary osteoarthritis of right foot (Primary Dx); Pain of right foot; Difficulty walking 05/17/2015 Refill [address] [place] [address] Alison Francis MD E-prescribing Refill Request 05/13/2015 Orders Only July [address] [place] [address] Alison Francis MD 05/13/2015 Orders Only July [address] [place] [address] Alison Francis MD 05/12/2015 Orders Only July [address] [place] [address] Alison Francis MD 05/11/2015 Telephone [address] [place] [address] Alison Francis MD Referral Request 02/24/2015 9:45 AM EST Office Visit [facility] [address] [place] [address] Sandi Santos NP Acute cystitis with hematuria (Primary Dx); Dysuria 02/24/2015 Telephone [address] [place] [address] Alison Francis MD UTI 12/16/2014 Orders Only July [address] [place] [address] Alison Francis MD 12/15/2014 Orders Only July [address] [place] [address] Alison Francis MD 12/15/2014 10:45 AM EDT Office Visit July [address] [place] [address] Alison Francis MD Hypertension (Primary Dx); Hyperlipidemia; LDL Goal < 130; Vitamin B12 deficiency; Ds DNA antibody positive; Chronic Renal Insufficiency; Right foot pain 11/10/2014 11:30 AM EDT Radiology [facility] Mammography [address] [place] [address] Other screening mammogram 11/03/2014 10:30 AM EDT Office Visit [facility] Optometry [address] [place] [address] Dima Morton S, OD Encounter for ophthalmic examination and evaluation (Primary Dx); Senile nuclear sclerosis, bilateral [366.16]; Hypermetropia, bilateral [367.0]; Presbyopia 07/21/2014 Refill July [facility] [place] [address] Alison Francis MD E-prescribing Refill Request 06/11/2014 1:15 PM EDT CPE - Comprehensive Physical Exam July [facility] [place] [address] Alison Francis MD Routine general medical examination at a health care facility (Primary Dx); Chronic kidney disease, unspecified; Hypertension; Osteoporosis; Vitamin D Defiency; Hyperlipidemia; LDL Goal < 130; Back pain; Chronic Renal Insufficiency; Ds DNA antibody positive; Vitamin B12 deficiency 05/04/2014 Refill July [facility] [place] [address] Alison Francis MD E-prescribing Refill Request 03/30/2014 Refill [address] [place] [address] Alison Francis MD E-prescribing Refill Request 03/24/2014 Letter/Form [address] [place] [address] Alison Francis MD 11/11/2013 Telephone [address] [place] [address] Alison Francis MD Referral Request 09/16/2013 Refill July [address] [place] [address] Alison Francis MD E-prescribing Refill Request 09/06/2013 Telephone July [address] [address] Alison Francis MD Referral Request 08/28/2013 Orders Only [address] [address] Alison Francis MD 08/28/2013 11:45 AM EDT Radiology July X-Ray [facility] [place] [address] 08/28/2013 11:15 AM EDT Office Visit [address] [address] Alison Francis MD Right foot pain (Primary Dx) 08/28/[address] [address] Alison Francis MD Swelling 03/12/2013 1:30 PM EST Office Visit [facility] [address] [place] [address] Andie Hinkle MD Foot pain (Primary Dx) 03/12/[address] [address] Alison Francis MD Swelling 03/08/2013 Refill July [address] [address] Alison Francis MD E-prescribing Refill Request 02/28/2013 Telephone [address] [place] [address] Alison Francis MD UTI 02/21/[address] [address] Alison Francis MD Cancellation 01/16/2013 Minor Procedure/Test NON FC SA [address] [address] Ricco Viramontes DPM 12/17/[address] [address] Alison Francis MD Information 12/11/2012 Telephone [address] [place] [address] Alison Francis MD Edema 12/11/2012 Telephone [facility] Rheumatology [address] [place] [address] Chalino Diaz MD Results 12/10/2012 Orders Only [facility] Rheumatology [address] [place] [address] Chalino Diaz MD 12/10/2012 1:00 PM EDT Consult (Initial) [facility] Rheumatology [address] [place] [address] Chalino Diaz MD Ds DNA antibody positive (Primary Dx) 12/05/2012 Orders Only [facility] Cardiology [address] [address] Romana Simons Tech 12/04/2012 Orders Only May Internal [address] [address] [place] [address] Alison Francis MD 12/04/2012 1:30 PM EDT Office Visit [address] [place] [address] Alison Francis MD Arthralgia (Primary Dx); Hypertension; Hyperlipidemia; LDL Goal < 130; Vitamin B12 deficiency; CHRONIC RENAL INSUFFICIENCY xx0.39xx 12/04/2012 Telephone [address] [place] [address] Alison Francis MD Foot Pain 12/03/2012 Telephone July [address] [address] Alison Francis MD Return Call (URGENT) 11/29/2012 Orders Only NON FC [facility] [address] [place] [address] Ricco Viramontes DPM 09/12/2012 Refill July [facility] [address] [place] [address] Shreyas Orellana MD E-prescribing Refill Request 08/23/2012 Telephone July [address] [address] Alison Francis MD Referral Request 08/10/2012 Refill July Internal [address] [address] Alison Francis MD E-prescribing Refill Request (Hydrochlorothiazide) 07/26/2012 Telephone July [address] [address] Alison Francis MD Referral Request 03/30/2012 Letter/Form INTERNAL MED UNSPEC 02/01/2012 Refill July Internal [facility] [address] [place] [address] Alison Francis MD E-prescribing Refill Request (hydrochlorothiazide) 01/12/2012 Minor Procedure/Test PODIATRY UNSPECIFIED 12/28/2011 10:30 AM EDT Radiology [facility]. Mammography [address] [place] [address] Other screening mammogram 11/15/2011 Orders Only FC MISCELLANEOUS [phone] Alison Francis MD 11/03/2011 Minor Procedure/Test PODIATRY UNSPECIFIED Dermatophytosis of nail; Pain in limb 09/01/2011 Telephone July [address] [address] Alison Francis MD ER F/U (head injury) 08/29/[address] [facility] [address] [place] [address] [facility], Emergency Rm Provider Dizziness and giddiness; Fall from slipping on wet surface 08/29/2011 Orders Only NON FC SA [facility] [address] [place] [address] Ta, Unknown Provider 08/29/2011 Orders Only NON FC SA [facility] [address] [place] [address] Yobani Samaniego 08/29/2011 Telephone July [address] [address] Alison Francis MD Results 08/29/2011 Telephone July [address] [address] Alison Francis MD Dizziness 08/26/2011 Orders Only July [address] [address] Alison Francis MD 08/26/2011 3:45 PM EDT Office Visit [address] [address] Alison Francis MD CHRONIC RENAL INSUFFICIENCY xx0.39xx (Primary Dx); Hematoma; Acute neck pain 08/26/2011 Telephone July [address] [address] Alison Francis MD Walk In 08/22/2011 Orders Only July [address] [address] Alison Francis MD 08/22/2011 Orders Only July [address] [address] Alison Francis MD 08/22/2011 9:00 AM EDT Office Visit [address] [address] Alison Francis MD UTI (urinary tract infection), uncomplicated (Primary Dx) 08/22/[address] [address] Alison Francis MD UTI 07/20/[address] [address] Alison Francis MD Walk In (medication issues) 07/19/[address] [address] Alison Francis MD Information 07/19/2011 1:30 PM EDT Office Visit [address] [address] Alison Francis MD Hypertension (Primary Dx); Osteoporosis; Vitamin D Defiency; Hyperlipidemia; LDL Goal < 130; Back pain; Vitamin B12 deficiency 07/19/2011 Refill July [address] [address] Alison Francis MD Medication Problem (lisinopril) 05/27/2011 Telephone [address] [place] [address] Alison Francis MD Medication Problem (cost of BP med) 05/26/2011 Orders Only July [address] [address] Alison Francis MD 05/26/2011 10:30 AM EST Nurse Visit July [address] [place] [address] Estefani Escobar LPN Cobalamin deficiency (Primary Dx); Elevated blood pressure 05/10/2011 Refill July [address] [place] [address] Alison Francis MD E-prescribing Refill Request 05/09/2011 Letter/Form [address] [place] [address] Alison Francis MD 04/20/2011 Letter/Form [address] [place] [address] Alison Francis MD 04/12/2011 Telephone July [address] [address] Alison Francis MD Medication Problem ; Information 04/08/2011 Telephone July [address] [place] [address] Alison Francis MD Patient Questions ; Information 03/28/2011 Minor Procedure/Test PODIATRY UNSPECIFIED Dermatophytosis of nail; Pain in limb 03/09/2011 Refill July [address] [place] [address] Alison Francis MD Refill Request (diovan) 03/09/2011 Refill July [address] [place] [address] Alison Francis MD E-prescribing Refill Request 02/24/2011 10:00 AM EST CPE - Comprehensive Physical Exam [address] [place] [address] Alison Francis MD Routine history and physical examination of adult (Primary Dx); Hypertension; Osteoporosis; Vitamin D Defiency; Hyperlipidemia; LDL Goal < 130; Vitamin B12 deficiency 01/04/2011 Minor Procedure/Test PODIATRY UNSPECIFIED Bursitis disorder; Lesion of plantar nerve 11/01/2010 Orders Only July [address] [place] [address] Alison Francis MD 11/01/2010 Refill July [facility] [place] [address] Alison Francis MD Medication Problem (vitamin b 12 injection) 10/21/2010 10:30 AM EDT Consult (Initial) [facility] Rheumatology [address] [place] [phone] Robert Fernandez MD Osteoporosis (Primary Dx) 09/28/2010 Office Visit PODIATRY UNSPECIFIED Acquired deformity of ankle and foot; Hallux valgus; Dermatophytosis of nail 08/26/2010 11:30 AM EDT Office Visit [address] [address] [place] [address] Alison Francis MD Hypertension (Primary Dx); Vitamin D Defiency; Osteoporosis; Back pain; Hyperlipidemia; LDL Goal < 130; Vitamin B12 deficiency 08/19/2010 10:30 AM EDT Nurse Visit [address] [place] [address] Estefani Escobar LPN Vitamin B12 deficiency (Primary Dx) 07/15/2010 Office Visit PODIATRY UNSPECIFIED Acquired deformity of ankle and foot; Hallux valgus; Dermatophytosis of nail 06/10/2010 Telephone [address] [place] [address] Alison Francis MD Referral Request 05/20/2010 10:00 AM EST Nurse Visit [address] [place] [address] Mahin Rodríguez RN Vitamin B12 deficiency (Primary Dx) 04/22/2010 1:00 PM EST Radiology [facility] Mammography [address] [place] [phone] Mammographic microcalcification; Other screening mammogram 04/05/2010 11:15 AM EST Office Visit [facility] Optometry [address] [place] [address] Dima Morton S, OD Macular puckering of retina (Primary Dx); Senile nuclear cataract 03/23/2010 Refill July [facility] [place] [address] Alison Francis MD E-prescribing Refill Request 03/20/2010 Refill July [facility] [place] [address] Alison Francis MD E-prescribing Refill Request (diovan) 02/25/2010 10:30 AM EST CPE - Comprehensive Physical Exam [address] [place] [address] Alison Francis MD Routine general medical examination at a health care facility (Primary Dx); Hypertension; Osteoporosis; Vitamin D Defiency; Hyperlipidemia; LDL Goal < 130; Back pain; Idiopathic peripheral neuropathy (HCC); Need for prophylactic vaccination and inoculation against influenza; Mammographic microcalcification 02/15/2010 Orders Only LAB UNSPECIFIED 02/15/2010 Orders Only July [address] [place] [address] Alison Francis MD 02/01/2010 Orders Only July [address] [place] [address] Alison Francis MD 01/25/2010 Refill July [address] [place] [address] Alison Francis MD E-prescribing Refill Request (DIOVAN HCT) 10/16/2009 Refill July [address] [place] [address] Alison Francis MD Refill Request 07/14/2009 Refill July [address] [place] [address] Deloris Longoria MA Refill Request 07/07/2009 Letter/Form July [address] [place] [address] Alison Francis MD 03/30/2009 10:30 AM EST Office Visit [facility] Optometry [address] [place] [address] Dima Morton S, OD Macular puckering of retina; Nuclear cataract, nonsenile 03/26/2009 Telephone July [address] [place] [address] Alison Francis MD Appointment (3 mo ret) 02/23/2009 Orders Only July [address] [place] [address] Alison Francis MD 02/23/2009 1:15 PM EST Office Visit [address] [address] [place] [address] Alison Francis MD Hypertension (Primary Dx); Vitamin D Defiency; Hyperlipidemia; LDL Goal < 130; Osteoporosis; Restless Leg Syndrome; Back Pain 02/18/2009 Telephone July [address] [place] [address] Alison Francis MD No Show 02/17/2009 Orders Only July [address] [place] [address] Alison Francis MD 11/18/2008 10:15 AM EDT Office Visit July [address] [place] [address] Alison Francis MD Hypertension (Primary Dx); Myalgia and Myositis; Hyperlipidemia; LDL Goal < 130; Back Pain 10/14/2008 Refill July [address] [place] [address] Deloris Longoria MA Refill Request (diovan) 09/15/2008 Telephone July [address] [place] [address] Alison Francis MD Letter/form Request 09/15/2008 3:30 PM EDT Office Visit July [address] [place] [address] Alison Francis MD Anxiety, Stress, and Tension (Primary Dx) 09/12/2008 Orders Only July [address] [address] Alison Francis MD 09/12/2008 Telephone July [address] [place] [address] Estefani Escobar LPN Appointment 09/12/2008 Telephone July [address] [place] [address] Estefani Escobar LPN Results (digital Mammogram 08/29/08) 09/11/2008 9:00 AM EDT Office Visit [facility] [address] [place] [address] Paco Uribe DPM Onychomycosis; Pain in Limb; Other Symptoms Referable to [facility]; Other Synovitis and Tenosynovitis 08/28/2008 Orders Only July [address] [address] Alison Francis MD 08/15/2008 Telephone July [address] [address] Estefani Escobar LPN Medication Problem (Requip); Information 08/15/2008 Orders Only July [address] [address] Alison Francis MD 08/15/2008 9:30 AM EDT CPE - Comprehensive Physical Exam July [address] [place] [address] Alison Francis MD Routine General Medical Examination at a Health Care Facility (Primary Dx); Breast Cancer Screening; Vitamin D Defiency; Hyperlipidemia; LDL Goal < 130; Hypertension; Osteoporosis; Back Pain; Leg Cramps 07/31/2008 9:15 AM EDT Consult (Initial) [facility] [address] [place] [phone] Paco Uribe DPM Other Synovitis and Tenosynovitis (Primary Dx) 07/03/2008 Orders Only [facility] Podiatry [address] [place] [address] Paco Uribe DPM 07/03/2008 9:00 AM EDT Consult (Initial) [facility] Podiatry [address] [place] [address] Paco Uribe DPM Onychomycosis; Pain in Limb; Other Synovitis and Tenosynovitis 04/11/2008 Refill July [facility] [place] [address] Jill Shrestha MA Refill Request (hctz) 04/04/2008 Orders Only July [address] [place] [address] Alison Francis MD 04/04/2008 Refill July [address] [place] [address] Maria C Roa MA Erroneous encounter-disregard 04/04/2008 10:45 AM EST Office Visit [address] [address] [place] [address] Alison Francis MD Hypertension (Primary Dx); Fungal Dermatitis 12/27/2007 11:15 AM EDT Office Visit [address] [address] [place] [address] Alison Francis MD Hypertension (Primary Dx) 11/27/2007 9:15 AM EDT Office Visit [address] [address] [place] [address] Alison Francis MD Hypertension (Primary Dx); Back Pain; Hyperlipidemia; LDL Goal < 130; Malaise and Fatigue 10/24/2007 Consult (Initial) [facility] [address] [place] [address] [facility], Unknown Provider 08/31/2007 Nurse Visit [facility] [address] [place] [address] Displacement of Lumbar Intervertebral Disc without Myelopathy 08/31/2007 Consult (Initial) [facility] [address] [place] [address] [facility], Unknown Provider 08/24/2007 Orders Only May Internal [facility] [address] [place] [address] Alison Francis MD 08/07/2007 [facility] [address] [place] [address] Alison Francis MD 07/31/2007 8:30 AM EDT CPE - Comprehensive Physical Exam May Internal [facility] [address] [place] [address] Alison Fracnis MD ROUTINE GENERAL MEDICAL EXAMINATION AT A HEALTH CARE FACILITY (Primary Dx); Hypertension; Hyperlipidemia; LDL Goal < 130; Vitamin D Defiency; BACK PAIN; Osteoporosis; BREAST CANCER SCREENING; INSOMNIA NEC; IMPACTED CERUMEN 07/20/2007 Consult (Initial) [address], Unknown Provider 07/06/2007 Telephone [facility] Internal Medicine [address] [place] [address] Angie Pepe, DOUG VNA Communication 07/03/2007 Telephone [facility] [address] [place] [address] Estefani Escobar LPN Patient Questions 06/25/2007 Telephone [facility] Internal Medicine [address] [place] [address] Regan Darling MD FYI (patient admitted / surgery done) 06/25/2007 Telephone [facility] Internal Medicine [address] [place] [address] Regan Darling MD Other 06/23/2007 Orders Only LAB UNSPECIFIED 06/23/2007 Minor Procedure/Test [address], Unknown Provider 06/22/2007 Surgery/Major Procedure [address] [address] Displacement of Lumbar Intervertebral Disc without Myelopathy 06/22/2007 Hospital/Inpatient [address] [place] [address], Unknown Provider 06/22/2007 Surgery/Major Procedure [facility] [address] [place] [address] [facility], Unknown Provider 06/22/2007 Consult (Initial) [facility] [address] [place] [address] [facility], Unknown Provider 06/18/2007 Telephone [facility] Internal Medicine [address] [place] [address] Angie Pepe, RN Appointment 06/14/2007 Telephone [facility] Internal Medicine [address] [place], [place] [phone] Patricia Dnoald RN Other (/ ms contin dose ) 06/12/2007 Orders Only [address] [address] Regan Darling MD 06/11/2007 Minor Procedure/Test REHABILITATION UNSPEC Nonallopathic Lesion of Lumbar Region; Lumbosacral Neuritis; Congenital Spondylolysis, Lumbosacral Region 06/11/2007 Telephone [facility] Internal Medicine [address] [place], [place] [phone] Terri Nur, DOUG Results 06/08/2007 Orders Only [address] [address] Regan Darling MD 06/08/2007 9:45 AM EDT Office Visit [address] [address] Regan Darling MD SCIATICA (Primary Dx); DEHYDRATION; FATIGUE; NAUSEA; ACUTE KIDNEY INSUFFICIENCY 06/07/2007 Refill [facility] Internal [address] [address] Angie Pepe, industrial relations representative Problem 06/07/2007 Refill [facility] Internal Medicine [address] [place] [address] Angie Pepe, RN Refill Request 06/06/2007 Letter/Form [address] [place] [address] [facility] [address] [place] [phone] 06/06/2007 Orders Only [facility] Internal Medicine [address] [place] [phone] Regan Darling MD 06/05/2007 Letter/Form NON FC SA NON FC [facility] Provider, Unknown 06/04/2007 Minor Procedure/Test REHABILITATION UNSPEC Nonallopathic Lesion of Lumbar Region; Lumbosacral Neuritis; Congenital Spondylolysis, Lumbosacral Region 06/01/2007 Refill [facility] Internal Medicine [address] [place] [address] Terri Nur, RN Refill Request 05/30/2007 Minor Procedure/Test REHABILITATION UNSPEC Nonallopathic Lesion of Lumbar Region; Lumbosacral Neuritis; Congenital Spondylolysis, Lumbosacral Region 05/28/2007 Minor Procedure/Test REHABILITATION UNSPEC Nonallopathic Lesion of Lumbar Region; Lumbosacral Neuritis; Congenital Spondylolysis, Lumbosacral Region 05/25/2007 1:00 PM EST Office Visit [facility] Internal [address] [phone] Regan Darling MD Sciatica (Primary Dx) 05/23/2007 Minor Procedure/Test REHABILITATION UNSPEC Nonallopathic Lesion of Lumbar Region; Lumbosacral Neuritis; Congenital Spondylolysis, Lumbosacral Region 05/23/2007 Telephone [facility] Internal [address] [phone] Regan Darling MD Other 05/21/2007 Minor Procedure/Test REHABILITATION UNSPEC Nonallopathic Lesion of Lumbar Region; Lumbosacral Neuritis; Congenital Spondylolysis, Lumbosacral Region 05/18/2007 Minor Procedure/Test REHABILITATION UNSPEC Nonallopathic Lesion of Lumbar Region; Lumbosacral Neuritis; Congenital Spondylolysis, Lumbosacral Region 05/17/2007 Telephone [facility] Internal [address] [phone] Terri Nur, RN Back Pain 05/15/2007 Minor Procedure/Test REHABILITATION UNSPEC Nonallopathic Lesion of Lumbar Region; Lumbosacral Neuritis; Congenital Spondylolysis, Lumbosacral Region 05/15/2007 Telephone [facility] Internal Medicine [address] [place] [address] Regan Darling MD Referral Request 05/14/2007 Office Visit REHABILITATION UNSPEC Nonallopathic Lesion of Lumbar Region; Lumbosacral Neuritis; Congenital Spondylolysis, Lumbosacral Region 05/08/2007 9:45 AM EST Office Visit [facility] Internal Medicine [address] [place] [phone] Regan Darling MD Hypertension (Primary Dx); Sciatica; Vitamin D Defiency; Osteoporosis; Hyperlipidemia; LDL Goal < 130; Hyperlipidemia 04/27/2007 Abstract [facility] [address] [place] [phone] Regan Darling MD 04/09/2007 Orders Only [facility] Internal Medicine [address] [place] [phone] Regan Darling MD 04/05/2007 10:00 AM EST CPE - Comprehensive Physical Exam [facility] Internal Medicine [address] [place] [phone] Regan Darling MD ROUTINE GENERAL MEDICAL EXAMINATION AT A HEALTH CARE FACILITY (Primary Dx); BREAST CANCER SCREENING; Hypertension; Osteoporosis; SCREENING FOR OTHER AND UNSPECIFIED DEFICIENCY ANEMIA; SCREENING FOR LIPOID DISORDERS; SCREEN-ENDOC/NUT/MET NEC 02/12/2007 Refill [facility] Internal Medicine [address] [place] [phone] Regan Darling MD Refill Request 12/15/2006 Refill [facility] Internal Medicine [address] [place] [phone] Angie Pepe, DOUG Refill Request 12/04/2006 Office Visit [facility] Optometry [address] [place] [phone] Jese Kessler, OD Examination of Eyes and Vision; Hypermetropia; Presbyopia; Refraction Disorder; Senile Nuclear Sclerosis 04/07/2006 Minor Procedure/Test Special Screening fo r Malignant Neoplasms, Colon 04/07/2006 Minor Procedure/Test [facility] [address] [place], [place] [phone] Eleonora Taylor MD Special Screening for Malignant Neoplasms, Colon 11/28/2005 Office Visit [facility] Internal Medicine [address] [place] [address] Regan Darling MD Hypertension; Cough 11/28/2005 Telephone [facility] Internal Medicine [address] [place] [address] Loni Machado LPN Cough 11/02/2005 Office Visit [facility] Internal Medicine [address] [place] [address] Corrie Kuo MD Hypertension 09/26/2005 Telephone [facility] Internal [address] [phone] Regan Darling MD 09/26/2005 Office Visit [facility] Internal Medicine [address] [place] [address] Corrie Kuo MD Hypertension; Elevated blood pressure reading without diagnosis of hypertension 09/26/2005 11:00 AM EDT Orders Only [facility] Internal Medicine [address] [place] [address] Corrie Kuo MD 09/26/2005 Orders Only [facility] Internal Medicine [address] [place] [address] Regan Darling MD 09/26/2005 Orders Only [facility] Internal Medicine [address] [place] [address] Regan Darling MD 08/26/2005 Office Visit [facility] Internal Medicine [address] [place] [address] Regan Darling MD Hypertension; Insomnia NEC; Osteoporosis; Backache 08/09/2005 Letter/Form [facility] Internal Medicine [address] [place] [address] Regan Darling MD 08/08/2005 Telephone [facility] Internal Medicine [address] [place] [address] Regan Darling MD 08/03/2005 Minor Procedure/Test REHABILITATION [...] Dislocation, First Cervical Vertebra 06/23/2005 Office Visit [facility] Internal Medicine [address] [place] [address] Regan Darling MD Hypertension; Osteoporosis 06/22/2005 Minor [...] Dislocation, First Cervical Vertebra 06/17/2005 Orders Only [facility] Internal Medicine [address] [place] [address] Regan Darling MD 2005 Minor Procedure/Test REHABILITATION [...] Vertebra 06/07/2005 CPE - Comprehensive Physical Exam [facility] Internal Medicine [address] [place] [address] Regan Darling MD Routine General Medical Examination [...] Regan Reynolds W Imaging 10/25/2004 Office Visit [facility] Optometry [address] [place] [phone] Jese Kessler, OD Examination of eyes and vision; Refraction disorder 06/07/2002 Telephone [facility] [address] [place] [phone] Chalino Lino MD 02/06/2002 Office Visit [facility] Optometry [address] [place] [phone] Robert Ferreira, OD Examination of eyes and vision; Refraction disorder; Cataract 04/11/2001 Telephone [facility] [address] [place] [phone] Chalino Lino MD 12/03/1999 Telephone [facility] [address] [place] [phone] Chalino Lino MD 12/03/1999 Office Visit [facility] [address] [place] [phone] Long Smith MD Acute pharyngitis; Acute upper respiratory infection 12/01/1999 Telephone [facility] [address] [place] [phone] Chalino Lino MD 10/15/1999 Office Visit [facility] Opt[facility] [address] [place] [phone] Robert Ferreira OD 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 Orders Only [facility] [address] [place] [phone] Chalino Lino MD 04/02/1999 Office Visit [facility] [address] [place] [address] Chalino Lino MD Pneumonia due to organism; Pneumonia, organism unspecified(486) 03/16/1999 Office Visit [facility] [address] [place] [address] Chalino Lino MD Bronchitis; Cough 02/22/1999 Orders Only NON [facility] [address] [address] [facility], Unknown Provider 09/08/1998 Orders Only [facility] [address] [place] [address] Chalino Lino MD 08/27/1998 Orders Only [facility] 07/01/1998 CPE - Comprehensive Physical Exam [facility] [address] [place] [address] Chalino Lino MD Routine general medical examination at a health care facility 05/02/1994 Office Visit NON [facility] NON [facility] Sara Alicja Refraction disorder 04/18/1994 Office Visit [address] [phone] Robert Andre MD Dyschromia 09/29/1993 Orders Only [facility] [address] [place] [phone] Chalino Lino MD 07/28/1993 Office Visit [facility] [address] [place] [phone] Chalino Lino MD Symptoms involving abdomen and pelvis 07/02/1993 Office Visit [facility] [address] [place] [phone] Chalino Lino MD Symptoms involving abdomen and pelvis 07/01/1993 Office Visit [facility] Internal Medicine [address] [place] [phone] Ameena Little PA Symptoms involving abdomen and [...] DAY 3 each 3 04/11/19 24 Active Pramipexole Dihydrochloride (MIRAPEX) 0.25 MG [...] tablet 3 03/11/20 24 026 Active Calcitonin, [place], (MIACALCIN) 200 UNIT/ACT nasal spray Administer one spray into one nostril 1 (one) time each day. 3.7 mL 12 03/14/20 24 026 Active Diclofenac Sodium 1 % Gel APPLY 2 G TOPICALLY 2 (TWO) TIMES A DAY IF NEEDED FOR PAIN TO AFFECTED AREA. 100 g 4 04/16/19 25 025 Active Verapamil HCl (CALAN) 80 MG tablet TAKE ONE TABLET (80 MG TOTAL) BY MOUTH 2 (TWO) TIMES A DAY. 180 tablet 3 05/17/19 25 Active QUEtiapine Fumarate (SEROquel) 50 MG tablet Take one tablet (50 mg total) by mouth every night. 90 tablet 2 05/30/19 25 Active oxyCODONE HCl (ROXICODONE) 5 MG immediate release tablet Take one half tablet (2.5 mg total) by mouth 2 (two) times a day if needed for severe pain. 30 tablet 06/04/19 25 Active Omeprazole (PriLOSEC OTC) 20 MG EC tablet Take one tablet (20 mg total) by mouth 1 (one) time each day. 90 tablet 3 06/05/19 25 026 Active Active Problems Problem Noted Date Diagnosed Date [...] See constipation. Slow transit constipation 03/11/2024 Overview (06/04/2024): Improved.no longer with sl strain. Bright red blood per rectum 03/11/2024 Overview [...] spray and cetirizine. Primary insomnia 11/01/2022 Overview (06/03/2024): Stable. Continue Seroquel. Patient denies any daytime [...] ears with bathing. Mood disorder 03/22/2022 Overview (06/04/2024): Stable. Positive reinforcement for socializing with family. No longer walks the dog in good weather. Situational mixed anxiety and depressive disorde r [...] acute care at home) Seizures 07/13/2020 Overview (06/03/2024): Stable. No recent sz activity. Not on [...] May use IV hydration. Form uploaded through [employer] to [employer]. HCP: Form started, Still needs 2 witness signatures, and will collect at next visit. Children Deborah and Felipe. Mild cognitive impairment 12/20/2019 Overview (06/03/2024): Stable. SLUMS done 11/01/22. MME . MMSE normal at in November 2020. Pt had formal neurology workup with Dr. Maldonado. Continue donepezil 5 mg. Positive reinforcement for socializing, word puzzles and proper nutrition reviewed. Reminded to exercise every day. Stage 2 chronic kidney disease 10/25/2011 Overview (06/03/2024): Stable. Continue periodic monitoring and avoidance of nephrotoxic medications. Proper hydration reviewed. Labs ordered. Lab Results Component Value Date GFR 77 [...] low back pain with bilateral sciatica Overview (06/04/2024): Present. Pt states she is having surgery for spinal stenosis 06/19/24. Comes and goes. S/P Back surgery for herniated disc. Continue icing during the day. 600 mg of ibuprofen with food every morning and apap in the afternoon in the morning. Then she takes either apap or ibuprofen at HS. Have advised combination dosing. Will start omeprazole. She is to call me if its not resolving. Continue stretches after warming up in the mornig. Pt was made aware at prior visit and again during this one that opiate are for short term use only. We discussed potential s/e's including falls, sedation, constipation, , and tolerance. Vitamin D Defiency 05/08/2007 Overview (10/25/2023): Ongoing. Continue Vitamin D 2000iu daily. Rx sent, but reminded to compare olson to OTC. Lab Results Component Value Date [id number] 28 (L) 11/14/2022 [id number] 34 07/05/2021 [id number] 35 11/09/2020 Other hyperlipidemia 05/08/2007 Overview (07/13/2020): Stable. Continue periodic monitoring. Caution with processed foods. Increase vegetables. Exercise to increase good cholesterol. Lab Results Component Value Date CHOLESTEROL 215 (H) 08/30/2016 HDL 54 08/30/2016 LDL 137 (H) 08/30/2016 TRIGLYCERIDE 121 08/30/2016 Hypertension 06/23/2005 Overview (06/03/2024): Ongoing. Sl elevated lately and today. Pain could be worsening. Continue verapamil 80 mg daily and losartan 50 mg daily. Avoid high sodium foods. Maintain adequate hydration of 6-8 glasses/day. Report any worsening edema, SOB/CP. Osteoporosis 06/08/2005 Overview (07/13/2020): Ongoing. TScore 2006 -2.7. remote h/o fosamax x5-6 yrs. Takes calcium and vitamin D intermittently. Pt declines Dexa. Agrees to take elo daily. Resolved Problems Problem Noted Date Diagnosed Date Resolved Date Adjustment insomnia 10/06/2021 01/25/20 23 Overview (05/02/2022): Improved. Continue trazodone at at [...] '25 Social History Smoking Status as of 07/05/2024 Tobacco Use Types Packs/Day Years Used Date [...] Sign Reading Time Taken Comments Blood Pressure 150/74 06/04/2024 1:03 PM EDT Pulse 80 06/04/2024 1:03 PM EDT Temperature 36.7 ??C (98 ??F) 06/04/2024 1:03 PM EDT Respiratory Rate 18 06/04/2024 1:03 PM EDT Oxygen Saturation 98% 06/04/2024 1:03 PM EDT Inhaled Oxygen Concentration - - Weight 70.3 kg (155 lb) 10/25/2023 10:15 AM EDT Height 157.5 cm (5' 2 ) 10/25/2023 10:15 AM EDT Body Mass Index 28.35 10/25/2023 10:15 AM EDT Plan of Treatment Not on file Procedures * Due to [place] state law, this organization might not be [...] mixed anxiety and depressive disorder Mood disorder OPHTHALMOLOGICAL TEST/PROCEDURE, UNSPECIFIED 02/28/2022 OPHTHALMOLOGICAL TEST/PROCEDURE, UNSPECIFIED [...] left lower lobe due to infectious organism CULTURE, URINE, ROUTINE Routine 11/01/2018 10:56 AM [...] CARDIOLOGY Routine 12/04/2012 2:40 PM EDT Arthralgia SM/VAN CDL DRIVER ANTIBODY Routine 12/04/2012 2:14 PM EDT Arthralgia [...] 9:51 AM EDT Results * Due to [place] state law, this organization might not be [...] X-RAY ABSORPTIOMETRY (DXA) SCAN: ?? DXA MODEL: HoloAccountable Horizon A in fast scan mode RISK FACTORS: [...] 25% and hip fracture 15% us Vale Walls NP IMG DEXA IMAGING Final Resu lt * [...] DIAGNOSTICS Comment: ??CULTURE, URINE, ROUTINE ??Micro Number: ?[id number] ??Test Status: ? Final ??Specimen Source: ?? [...] or P. mirabilis: ?Cefazolin is resistant if VNA > or = 8 mcg/mL. ?(Distinguishing susceptible [...] 10:46 PM EDT Narrative Resulting Agency Comment [id number] Jennifer Robles MD LABORATORY Final Result Performing Organization Address City/State/[facility] Co de Phone Number [employer] [address] [place] [address] * (ABNORMAL) CLINITEK URINALYSIS (01/18/2024 9:10 AM [...] (Urine) Small(A) Negative CLINIT EK ANALYZER Specific [place]uney (Urine) 1.020 1.005 - 1.030 CLINITEK ANALYZER Ketones (Urine) Negative Negative CLIN ITEK ANALYZER Bilirubin (Urine) Negative Negative CLINITEK ANALYZER Glucose (Urine) Negative Negative CLIN ITEK ANALYZER 01/18/2024 9:10 AM EDT 01/18/2024 9:10 AM EDT Narrative CLINITEK ANALYZER - 01/18/2024 9:10 AM EDT SN#:[id number] Location:[facility] Jennifer Robles MD LAB SAME DAY RESULT [...] RT G Final Result Performing Organization Address City/[facility]/ZIP Co de Phone Number MUSE EKG SYSTEM [...] RESULT Final Res ult [facility] [address] [place] [address] * COMPREHENSIVE METABOLIC PANEL WITH GFR (01/04/2023 [...] with more precise needs for GFR calculation. Chalino Ye MD LABORATORY Final Result Performing Organization Address [facility] Co de Phone Number [facility] [address] [place] [address] * (ABNORMAL) URINALYSIS, MICROSCOPIC (01/04/2023 2:31 PM [...] 2:36 PM EDT Narrative Resulting Agency Comment [id number] Chalino Ye MD LAB SAME DAY RESULT Final Res ult Performing Organization Address [facility] Co de Phone Number [facility] [address] [place] [address] * (ABNORMAL) VITAMIN B12 (CYANOCOBALAMIN), SERUM (11/14/2022 10:50 AM EDT) Only the most recent of6 resultswithin the time period is included. Vitamin B12 (Cobalamins) 1197(H) 200 - 1100 pg/mL [facility] 11/14/2022 10:5 0 AM EDT 11/14/2022 10:58 PM EDT Narrative Resulting Agency Comment [id number] Vale Walls GUARD IMMIGRATION LABORATORY Final Resul t Performing Organization Address [facility] de Phone Number [facility] [address] [place] [address] * (ABNORMAL) VITAMIN D, 25-HYDROXY, TOTAL, IMMUNOASSAY (11/14/2022 10:50 AM EDT) Only the most recent of7 resultswithin the time period is included. Vitamin D, 25-OH, Total 28(L) 30 - 100 ng/mL [facility] Comment: Vitamin D Status ? 25-OH Vitamin D: Deficiency: ?<20 ng/mL Insufficiency: ? 20 - 29 ng/mL Optimal: ? > or = 30 ng/mL For 25-OH Vitamin D testing on patients on D2-supplementation and patients for whom quantitation of D2 and D3 fractions is required, the QuestAssureD(TM) 25-OH VIT D, (D2,D3), LC/MS/MS is recommended: order code 28292 (patients >2yrs). See Note 1 Note 1 For additional information, please refer to http://[email or web address] (This link is being provided for informational/ educational purposes only.) 11/14/2022 10:5 0 AM EDT 11/14/2022 10:58 PM EDT Narrative Resulting Agency Comment [id number] Vale Walls GU[facility]MM[facility]RATION LABORATORY Final Resul t Performing Organization Address [facility] de Phone Number [facility] [address] [place] [address] * UNSPECIFIED MAJOR PROCEDURE (05/05/2022) Kavon Haskins [...] 8 AM EST 04/12/2022 1:35 PM EST Result [facility] Gail Barber GUARD IMMIGRATION CARDIOVASCULAR-WITH INBSKT R TG Final Result MUSE [...] needs for GFR calculation. Resulting Agency Comment [id number] us Gail Barber GUARD IMMIGRATION LABORATORY Final Result Performing Organization Address [facility] Co de Phone Number [facility] [address] [place] [address] * OPHTHALMOLOGICAL TEST/PROCEDURE, UNSPECIFIED (02/28/2022) Kavon Haskins MD PROCEDURES Final Result * OPHTHALMOLOGICAL TEST/PROCEDURE, UNSPECIFIED (12/24/2021) us Kavon Haskins MD PROCEDURES Final Result * URIC ACID, SERUM (11/09/2020 10:53 AM EDT) Uric Acid Serum 5.0 2.5 - 7.0 mg/dL [facility] Comment:Therapeutic target f or gout patients: <6.0 mg/dL 11/09/2020 10:5 3 AM EDT 11/09/2020 12:10 PM EDT Narrative Resulting Agency Comment [id number] Vale Walls GUARD IMMIGRATION LABORATORY Final Resul t Performing Organization Address City/[facility] Co de Phone Number [facility] [address] [place] [address] * THYROID STIMULATING HORMONE (TSH) WITH FREE T4 REFLEX, SERUM (11/09/2020 10:53 AM EDT) TSH 1.80 0.40 - 4.50 mIU/L [facility] 11/09/2020 10:5 3 AM EDT 11/09/2020 12:10 PM EDT Narrative Resulting Agency Comment [id number] Vale Walls GUARD IMMIGRATION LABORATORY Final Resul t [facility] [address] [place] [address] * (ABNORMAL) SARS COV 2 RNA(COVID 19), [...] Due to the current public health emergency, [employer] is receiving a high volume of samples [...] the FDA authorized labeling available on the [employer] website: [email or web address]. 07/11/2019 11:2 5 AM EDT 07/11/2019 4:43 PM EDT Narrative Resulting Agency Comment [id number] Andrew Davis MD LABORATORY Final Result [facility] [address] [place] [address] * XRAY CHEST, 2 VIEWS, PA & [...] No acute cardiopulmonary abnormality is identified. Cardiomegaly. us Shreyas Orellana MD IMG XRAY NO CONTRAST [...] (specimen) 11/01/2018 10:55 AM EDT Carissa Barbosa [facility] Final Result * THYROID CASCADING REFLEX (08/08/2018 1:24 PM EDT) Only the most recent of2 resultswithin the time period is included. TSH 2.94 0.40 - 4.50 mIU/L [facility] 08/08/2018 1:24 PM EDT 08/08/2018 7:50 PM EDT Narrative Resulting Agency Comment [id number] Shreyas Orellana MD LABORATORY Final Result Performing Organization Address City/State/[facility] Co de Phone Number [facility] [address] [place] [address] * (ABNORMAL) LIPID PANEL WITH REFLEX TO [...] 2:54 PM EDT Narrative Resulting Agency Comment [id number] us Shreyas Orellana MD LABORATORY Final Result [facility] [address] [place] [address] * POTASSIUM, SERUM (07/13/2015 10:51 AM EDT) Potassium 4.6 3.5 - 5.3 mmol/L [facility] Comment:{POTASSIUM {[id number]) 07/13/2015 10:5 1 AM EDT 07/13/2015 5:29 PM EDT Narrative Resulting Agency Comment [id number] us Alison Francis MD LAB SAME DAY RESULT Final Resul t Performing Organization Address [facility] Co de Phone Number [facility] [address] [place] [address] * URINALYSIS, DIP ONLY ( SITE STAT ONLY) (07/07/2015 12:22 PM EDT) Only the most recent of2 resultswithin the time period is included. COLOR (URINE) YELLOW [facility] [employer] [facility] (CLIA# [id number]) APPEARANCE (URINE) CLEAR [facility] (CLIA# [id number]) SPECIFIC GRAVITY 1.010 1.001 - 1.035 [facility] (CLIA# [id number]) PH (URINE) 7.5 5.0 - 8.0 [facility] (CLIA# [id number]) PROTEIN (URINE) NEGATIVE Neg [facility] (CLIA# [id number]) GLUCOSE (URINE) NEGATIVE Neg [facility] (CLIA# [id number]) Ketones (Urine) NEGATIVE Neg [facility] (CLIA# [id number]) BILIRUBIN (URINE) NEGATIVE Neg [facility] (CLIA# [id number]) BLOOD (URINE) NEGATIVE Neg [facility] [employer] [facility] (CLIA# [id number]) WBC (URINE) NEGATIVE Neg [facility] (CLIA# [id number]) NITRITE (URINE) NEGATIVE Neg [facility] (CLIA# [id number]) Urine specimen obtained by clean catch procedure (specimen) 07/07/2015 12:22 PM EDT us Alison Francis MD LAB SAME DAY RESULT Final Resul t [facility] (CLIA# [id number]) [address] [place] [address] * XRAY FOOT COMPLETE MIN 3 VWS [...] is degenerative change in several of the yocha dehe IP joints. In addition to moderately severe hallux valgus there is valgus deformity of toes 2 through 4 and there are hammertoe deformities as well. ??There are subchondral cystic changes in several of the metatarsal heads. There is no developing erosion. There is no fracture seen. Tiny posterior calcaneal spur. CONCLUSION:: 1. Progressive hypertrophic degenerative record changer assembler the dorsum of the foot at the [...] is degenerative change in several of the yocha dehe IP joints. In addition to moderately severe hallux valgus there is valgus deformity of toes 2 through 4 and there are hammertoe deformities as well. There are subchondral cystic changes in several of the metatarsal heads. There is no developing erosion. There is no fracture seen. Tiny posterior calcaneal spur. CONCLUSION:: 1. Progressive hypertrophic degenerative record changer assembler the dorsum of the foot at the [...] Color (Urine) YELLOW YELLOW [facility] Comment:{COLOR {[id number]) Appearance (Urine) CLEAR CLEAR [facility] Comment:{APPEARANCE {[id number]) Specific gravity (Urine) 1.014 1.001 - 1.035 [facility] Comment:{SPECIFIC GRAVITY {[id number]) pH (Urine) 6.5 5.0 - 8.0 [facility] Comment:{PH {[id number]) Glucose (Urine) NEGATIVE NEGATIVE [facility] Comment:{GLUCOSE {[id number]) Bilirubin (Urine) NEGATIVE NEGATIVE [facility] Comment:{BILIRUBIN {[id number]) Ketones (Urine) NEGATIVE NEGATIVE [facility] Comment:{KETONES {[id number]) Hemoglobin (Urine) NEGATIVE NEGATIVE [facility] Comment:{OCCULT BLOOD {[id number]) Protein (Urine) NEGATIVE NEGATIVE [facility] Comment:{PROTEIN {[id number]) Nitrite (Urine) NEGATIVE NEGATIVE [facility] Comment:{NITRITE {[id number]) Leukocyte esterase (Urine) NEGATIVE NEGATIVE [facility] Comment:{LEUKOCYTE ESTERASE {[id number]) WBC (Urine) NONE SEEN < OR = 5 /HPF [facility] Comment:{WBC {[id number]) RBC (Urine Sed) NONE SEEN < OR = 2 /HPF [facility] Comment:{RBC {[id number]) Epithelial cells.squamous (Urine sed) 0-5 < OR = 5 /HPF [facility] Comment:{SQUAMOUS EPITHELIAL CELLS {[id number]) Bacteria (Urine) NONE SEEN NONE SEEN /HPF [facility] Comment:{BACTERIA {[id number]) Hyaline casts (Urine sed) NONE SEEN NONE SEEN /LPF [facility] Comment:{HYALINE CAST {[id number]) Service comment 01 SEE NOTE [facility] Comment: {COMMENTS {[id number]) The above test was performed; ??evaluate the urinalysis results with caution. ??The urine specimen was received without a preservative. ??Deterioration of formed elements and/or alteration of chemical constituents may have occurred. 12/15/2014 11:1 4 AM EDT 12/15/2014 10:17 PM EDT Narrative Resulting Agency Comment [id number] us Alison Francis MD LAB SAME DAY RESULT Final Resul t [facility] [address] [place] [address] * MAMMOGRAM SCREENING , BILATERAL FC (11/10/2014 [...] Bilateral CAD software used during interpretation COMPARISON: 2011, 2010 BREAST COMPOSITION: b. There are scattered [...] RT (01/17/2013 10:41 AM EDT) RADIOLOGY REPORT [facility] Department of Radiology [address] [place] [address], [address] Name: RENY ROSE : 36 Date of Service: 01/16/13 1658 Acct Number: [id number] Order Number: ??[id number] ?[place] [facility] [place] Number: [id number] ?Service: [facility]/ Requesting Physician: Ricco Viramontes Category: RADIOLOGY ??[facility] Exam: FOOT 3 VIEWS ?? Right Signs/Symptoms: [...] Approved Electronically By/Date: Johnny Gray 01/17/13 1041 [facility] Department of Radiology [address] [place] [address], [address] ? [phone] ? [facility] Anatomical Region Laterality Modality Other 01/17/2013 10:4 1 AM EDT Narrative 01/17/2013 10:42 AM EDT Reason for Study/History: Department of Radiology TEST(S) PROCESSED BY [facility] XRAY us Ricco Viramontes DPM IMAGING-[facility] Final Resul t * PATHOLOGY REPORT (01/16/2013 7:49 PM EDT) PATHOLOGY REPORT Surgical Pathology Report Specimen Number: [id number] Final Diagnosis Diagnosis: ??1. ??BONE, RIGHT FOOT [...] ?discrete areas of softening are noted grossly. ??Chief Scientific Officer ?sections are submitted in cassette 1 following [...] areas of softening are identified ?grossly. ??A retail wireless sales representative section of each is submitted in cassette 2 ?following decalcification. [facility] 01/16/2013 7:49 PM EDT 01/16/2013 7:49 PM EDT us Ricco Viramontes DPM LABORATORY Final Resul t Performing Organization Address City/[facility]/ZIP Co de Phone Number [facility] [address] [place] [address] * SM/VAN CDL DRIVER ANTIBODY (12/04/2012 2:14 PM EDT) Wilson extractable nuclear Ab+Ribonucleopr otein extractable nuclear Ab <1.0 NEG <1.0 NEG AI [facility] Comment:{SM/VAN CDL DRIVER ANTIBODY {[id number]) 12/04/2012 2:14 PM EDT 12/04/2012 11:10 PM EDT Narrative Resulting Agency Comment [id number] us Alison Francis MD LABORATORY Final Result Performing Organization Address City/[facility] Co de Phone Number [facility] [address] [place] [address] * (ABNORMAL) DNA (DS) ANTIBODY (12/04/2012 2:14 PM EDT) Dna (DS) Antibody 14(H) IU/mL [facility] Comment: {DNA (DS) ANTIBODY {[id number]) ? IU/mL ? Interpretation ? < or = 4 ?Negative ? 5-9 ? Indeterminate ? > or = 10 ?? Positive 12/04/2012 2:14 PM EDT 12/04/2012 11:10 PM EDT Narrative Resulting Agency Comment [id number] Alison Francis MD LABORATORY Final Result [facility] [address] [place] [address] * ZEENAT SCREEN IFA W/REFLEX TO TITER/PATTERN IFA (12/04/2012 2:14 PM EDT) ZEENAT IFA NEGATIVE NEGATIVE [facility] Comment:{ZEENAT SCREEN, IFA {[id number]) 12/04/2012 2:14 PM EDT 12/04/2012 11:10 PM EDT Narrative Resulting Agency Comment [id number] Alison Francis MD LABORATORY Final Result Performing Organization Address [facility] Co de Phone Number [facility] [address] [place] [address] * SED RATE (ESR) (11/29/2012 8:19 AM EDT) ESR (ERYTHROCYTE SEDIMENTATION RATE) 26 0 - 40 mm/hr [facility] 11/29/2012 8:19 AM EDT 11/29/2012 8:19 AM EDT Ricco LYONM LABORATORY Final Resul t Performing Organization Address [facility] Co de Phone Number [facility] [address] [place] [address] * URIC ACID (11/29/2012 8:19 AM EDT) URIC ACID, SERUM 6.0 2.5 - 7.1 mg/dL [facility] 11/29/2012 8:19 AM EDT 11/29/2012 8:19 AM EDT Ricco Viramontes DPM LABORATORY Final Resul t Performing Organization Address [facility] Co de Phone Number [facility] [address] [place] [address] * CT CERV. SPINE W/O CONTRAST (08/29/2011 3:56 PM EDT) RADIOLOGY REPORT [facility] Department of Radiology [address] [place], [address] Name: RENY ROSE : 36 Date of Service: 08/29/11 1527 Acct Number: [id number] Order Number: ??[id number] ?Location: [facility] Report Number: [id number] ?Service: REG ER/ Requesting Physician: Yobani Samaniego Category: COMPUTED TOMOGRAPHY ??[facility] Exam: CERVICAL SPINE W/O CONTRAST ?? Signs/Symptoms: [...] or subluxation. ??Degenerative disease as described above. residential leasing manager: Long Sanchez M.D. Interpreting Resident: Long Sanchez Date/Time of Dictation: 08/29/11 1556 Approved Electronically By/Date: Long Rucker 08/29/11 1616 [facility] Department of Radiology [address] [place] [address], [address] ? [phone] ? [facility] Anatomical Region Laterality Modality Other 08/29/2011 3:56 PM EDT Narrative 08/29/2011 4:17 PM EDT Reason for Study/History: Department of Radiology TEST(S) PROCESSED BY [facility] XRAY Yobani Samaniego IMAGING-[facility] Final Result * CT FACIAL W/O CONTRAST (08/29/2011 3:43 PM EDT) RADIOLOGY REPORT [facility] Department of Radiology [address] [place] [address], [address] Name: RENY ROSE : 36 Date of Service: 08/29/11 1527 Acct Number: [id number] Order Number: ??[id number] ?Location: [facility] Report Number: [id number] ?Service: REG ER/ Requesting Physician: Yobani Samaniego Category: COMPUTED TOMOGRAPHY ??[facility] Exam: FACIAL W/O CON ?? Signs/Symptoms: facial [...] facial bones appear normal. Impression: No fracture CONSTRUCTION EQUIPMENT OPERATOR: Long Sanchez M.D. Interpreting Resident: Long Sanchez Date/Time of Dictation: 08/29/11 5744 Approved Electronically By/Date: Long Rucker 08/29/11 2491 [facility] Department of Radiology [address] [place] [address], [address] ? [phone] ? [facility] Anatomical Region Laterality Modality Other 08/29/2011 3:43 PM EDT Narrative 08/29/2011 4:20 PM EDT Reason for Study/History: Department of Radiology TEST(S) PROCESSED BY [facility] XRAY Yobani Samaniego IMAGING-[facility] Final Result * CT BRAIN W/O CONTRAST (08/29/2011 3:36 PM EDT) RADIOLOGY REPORT [facility] Department of Radiology [address] [place] [address], [address] Name: RENY ROSE : 36 Date of Service: 08/29/11 1524 Acct Number: [id number] Order Number: ??[id number] ?Location: [facility] Report Number: [id number] ?Service: REG ER/ Requesting Physician: Hossein Will Category: COMPUTED TOMOGRAPHY ??[facility] Exam: BRAIN W/O CONTRAST ?? Signs/Symptoms: Dizziness [...] Approved Electronically By/Date: Long Rucker 08/29/11 1536 [facility] Department of Radiology [address] [place] [address], [address] ? [phone] ? [facility] Anatomical Region Laterality Modality Other 08/29/2011 3:36 PM EDT Narrative 08/29/2011 3:37 PM EDT Reason for Study/History: Department of Radiology TEST(S) PROCESSED BY [facility] XRAY us Unknown Provider [facility] IMAGING-[facility] Final Resul t * CBC 5 PART DIFF (08/29/2011 12:23 PM EDT) WHITE BLOOD COUNT 8.7 3.9 - 11.0 x1000/uL [facility] RBC 4.67 3.70 - 5.10 mil/ul [facility] Hemoglobin 13.3 11.5 - 15.0 g/dL [facility] HCT (HEMATOCRIT) 39.1 34.0 - 44.0 % [facility] MCV 84 80 - 100 fL [facility] MCH 29 27 - [address] [facility] MCHC 34 31 - 36 g/dL [facility] RDW 12.5 11.4 - 14.4 % [facility] PLATELETS 224 150 - 450 x1000/uL [facility] MPV 9.2 7.0 - 11.0 fL [facility] NEUTROPHILS 61 42 - 76 % [facility] LYMPHOCYTE % 31 14 - 46 % [facility] MONOCYTE % 5 4 - 13 % [facility] EOSINOPHIL % 2 0 - 7 % [facility] BASOPHIL % 1 0 - 3 % [facility] NEUTROPHILS (#) 5.3 1.8 - 7.0 x1000/uL [facility] LYMPHOCYTES # 2.7 0.7 - 4.5 x1000/uL [facility] MONOCYTES # 0.4 0.1 - 0.8 x1000/uL [facility] EOSINOPHILS # 0.2 0.0 - 0.4 x1000/uL [facility] BASOPHILS # 0.1 0.0 - 0.2 x1000/uL [facility] 08/29/2011 12:2 3 PM EDT 08/29/2011 12:23 PM EDT Result [facility] Yobani Samaniego LABORATORY Final Result Performing Organization Address [facility] Phone Number [facility] [address] [place] [address] * PTT(PART THROM TIME) (08/29/2011 12:23 PM EDT) PTT (PARTIAL THROMBOPLASTIN TIME) 26.8 sec [facility] Comment: Normal: ? 25.0-35.0 Therapeutic: ??50.0-90.0 08/29/2011 12:2 3 PM EDT 08/29/2011 12:23 PM EDT Yobani Samaniego LABORATORY Final Result Performing Organization Address [facility] Phone Number [facility] [address] [place] [address] * (ABNORMAL) PROTHROMBIN TIME (08/29/2011 12:23 PM EDT) PT (PROTHROMBIN TIME) 10.4 9.1 - 12.0 sec [facility] INR 1.0(L) 2.0 - 3.5 [facility] Comment: INR reference interval applies to patients on anticoagulant therapy. ??Suggested INR therapeutic range for oral anticoagulant therapy:(Stabilized anticoagulated patients) ?Routine Therapy: ? 2.0-3.0 ?Recurrent Myocardial Infarction or ?Mechanical Prosthetic Valves: ?2.5-3.5 08/29/2011 12:2 3 PM EDT 08/29/2011 12:23 PM EDT Yobani Samaniego LABORATORY Final Result Performing Organization Address [facility] Co de Phone Number [facility] [address] [place] [address] * URINALYSIS,C&S IF INDICATED (08/29/2011 12:23 PM EDT) COLOR (URINE) YELLOW [facility] APPEARANCE (URINE) CLEAR [facility] GLUCOSE (URINE) NEGATIVE Negative mg/dL [facility] BILIRUBIN (URINE) NEGATIVE Negative [facility] Ketones (Urine) NEGATIVE Negative mg/dL [facility] SPECIFIC GRAVITY 1.015 1.005 - 1.030 [facility] BLOOD (URINE) NEGATIVE Negative [facility] PH (URINE) 7.5 5.0 - 8.0 [facility] PROTEIN (URINE) NEGATIVE Neg-Trace mg/dL [facility] UROBILINOGEN 0.2 0.2 - 1.0 mg/dL [facility] NITRITE (URINE) NEGATIVE Negative [facility] WBC (URINE) NEGATIVE Negative [facility] Microscopic (Urine) [facility] Comment:Microscopic not jere cated Culture Indication NO [facility] 08/29/2011 12:2 3 PM EDT 08/29/2011 12:23 PM EDT Yobani Samaniego LABORATORY Final Result Performing Organization Address [facility] Co de Phone Number [facility] [address] [place] [address] * (ABNORMAL) BASIC METABOLIC PANEL (08/29/2011 12:23 PM EDT) Only the most recent of2 resultswithin the time period is included. Glucose 101(H) Fastin-99 mg/dL [facility] BUN 19 5 - 26 mg/dL [facility] CREATININE 0.73 0.5 - 1.5 mg/dL [facility] BUN/Creatinine Ratio 26 8 - 27 [facility] GLOM FILT RATE, EST 81.7 >59 mL/min [facility] IF -HELENE N 94.7 >59 mL/min [facility] SODIUM 137 134 - 144 mEq/L [facility] POTASSIUM 3.1(L) 3.5 - 5.5 mEq/L [facility] CHLORIDE 101 96 - 109 mEq/L [facility] CARBON DIOXIDE 25 20 - 32 mEq/L [facility] ANION GAP 11.0 8 - 12 [facility] CALCIUM 9.3 8.6 - 10.2 mg/dL [facility] 08/29/2011 12:2 3 PM EDT 08/29/2011 12:23 PM EDT us [place] Nimco Samaniego LABORATORY Final Result [facility] [address] [place] [address] * (ABNORMAL) BASIC METABOLIC PANEL W/GLOMERULAR FILTRATION RATE (EGFR) (05/26/2011 8:47 AM EST) Only the most recent of3 resultswithin the time period is included. Glucose 99 65 - 99 mg/dL [facility] Comment: {GLUCOSE {[id number]) ? Fasting reference interval Urea Nitrogen Blood (BUN) 31(H) 7 - 25 mg/dL [facility] Comment:{UREA NITROGEN (BUN) {[id number]) Creatinine 1.33(H) 0.60 - 0.93 mg/dL [facility] Comment: {CREATININE {[id number]) For patients >49 years of age, the reference limit for Creatinine is approximately 13% higher for people identified as -Malian. GFR 40(L) > OR = 60 mL/min/1. 73m2 [facility] Comment:{eGFR NON-AFR. AMERI CAN {[id number]) GFR () 46(L) > OR = 60 mL/min/1. 73m2 [facility] Comment:{eGFR AMERIC AN {[id number]) BUN/Creatinine Ratio 23(H) 6 - 22 (calc) [facility] Comment:{BUN/CREATININE RATI O {[id number]) Sodium 140 135 - 146 mmol/L [facility] Comment:{SODIUM {[id number]) Potassium 3.9 3.5 - 5.3 mmol/L [facility] Comment:{POTASSIUM {[id number]) Chloride 107 98 - 110 mmol/L [facility] Comment:{CHLORIDE {[id number]) Carbon dioxide 21 21 - 33 mmol/L [facility] Comment:{CARBON DIOXIDE {[id number]) Calcium 9.9 8.6 - 10.4 mg/dL [facility] Comment:{CALCIUM {[id number]) 05/26/2011 8:47 AM EST 05/26/2011 12:22 [...] needs for GFR calculation. Resulting Agency Comment [id number] us Alison Francis MD LABORATORY Final Result [facility] [address] [place] [address] * (ABNORMAL) LIPID PANEL + CARDIAC RISK WITH REFLEX TO LDL DIRECT (05/26/2011 8:47 AM EST) Only the most recent of3 resultswithin the time period is included. Cholesterol 233(H) 125 - 200 mg/dL [facility] Comment:{CHOLESTEROL, TOTAL {[id number]) HDL Cholesterol 59 > OR = 46 mg/dL [facility] Comment:{HDL CHOLESTEROL {[id number]) Triglyceride 113 <150 mg/dL [facility] Comment:{TRIGLYCERIDES {[id number]) LDL Cholesterol 151(H) <130 mg/dL (calc) [facility] Comment: {LDL-CHOLESTEROL {[id number]) Desirable range <100 mg/dL for patients with CHD or diabetes and <70 mg/dL for diabetic patients with known heart disease. CHOL/HDL Ratio 3.9 < OR = 5.0 (calc) [facility] Comment:{CHOL/HDLC RATIO {[id number]) 05/26/2011 8:47 AM EST 05/26/2011 12:22 PM EST Narrative Resulting Agency Comment [id number] us Alison Francis MD LABORATORY Final Result [facility] [address] [place] [address] * CBC 5 PART DIFF (05/26/2011 8:47 AM EST) Only the most recent of7 resultswithin the time period is included. WBC 6.6 3.8 - 10.8 Thousand/u L [facility] Comment:{WHITE BLOOD CELL CO UNT {[id number]) RBC 4.88 3.80 - 5.10 Million/uL [facility] Comment:{RED BLOOD CELL COUN T {[id number]) Hemoglobin 14.5 11.7 - 15.5 g/dL [facility] Comment:{HEMOGLOBIN {[id number]) Hematocrit 43.0 35.0 - 45.0 % [facility] Comment:{HEMATOCRIT {[id number]) MCV 88.0 80.0 - 100.0 fL [facility] Comment:{MCV {[id number]) MCH 29.6 27.0 - 33.0 pg [facility] Comment:{MCH {[id number]) MCHC 33.7 32.0 - 36.0 g/dL [facility] Comment:{MCHC {[id number]) RDW 13.4 11.0 - 15.0 % [facility] Comment:{RDW {[id number]) PLT 236 140 - 400 Thousand/u L [facility] Comment:{PLATELET COUNT {[id number]) MPV 8.7 7.5 - 11.5 fL [facility] Comment:{MPV {[id number]) Neutrophils # 4382 1500 - 7800 cells/uL [facility] Comment:{ABSOLUTE NEUTROPHIL S {[id number]) Lymphocytes # 1604 850 - 3900 cells/uL [facility] Comment:{ABSOLUTE LYMPHOCYTE S {[id number]) Monocytes # 436 200 - 950 cells/uL [facility] Comment:{ABSOLUTE MONOCYTES {[id number]) Eosinophils # 132 15 - 500 cells/uL [facility] Comment:{ABSOLUTE EOSINOPHIL S {[id number]) Basophils # 46 0 - 200 cells/uL [facility] Comment:{ABSOLUTE BASOPHILS {[id number]) Neutrophils % 66.4 % [facility] Comment:{NEUTROPHILS {[id number]) Lymphocytes % 24.3 % [facility] Comment:{LYMPHOCYTES {[id number]) Monocytes % 6.6 % [facility] Comment:{MONOCYTES {[id number]) Eosinophils % 2.0 % [facility] Comment:{EOSINOPHILS {[id number]) Basophils % 0.7 % [facility] Comment:{BASOPHILS {[id number]) 05/26/2011 8:47 AM EST 05/26/2011 12:22 PM EST Narrative Resulting Agency Comment [id number] us Alison Francis MD LAB SAME DAY RESULT Final Resul t Performing Organization Address City/[facility]/ZIP Co de Phone Number [facility] [address] [place] [address] * ASPARTATE AMINOTRANSFERASE (AST), SERUM (05/26/2011 8:47 AM EST) Only the most recent of3 resultswithin the time period is included. AST (SGOT) 26 10 - 35 U/L [facility] Comment:{AST {[id number]) 05/26/2011 8:47 AM EST 05/26/2011 12:22 PM EST Narrative Resulting Agency Comment [id number] us Alison Francis MD LAB SAME DAY RESULT Final Resul t Performing Organization Address City/[facility]/ZIP Co de Phone Number [facility] [address] [place] [address] * TSH (THYROTROPIN) (05/26/2011 8:47 AM EST) Only the most recent of4 resultswithin the time period is included. TSH 2.04 0.40 - 4.50 mIU/L [facility] Comment:{TSH {[id number]) 05/26/2011 8:47 AM EST 05/26/2011 12:22 PM EST Narrative Resulting Agency Comment [id number] Alison Francis MD LABORATORY Final Result Performing Organization Address [facility] Co de Phone Number [facility] [address] [place] [address] * T4, FREE THYROXINE (05/26/2011 8:47 AM EST) Only the most recent of4 resultswithin the time period is included. FT4 1.1 0.8 - 1.8 ng/dL [facility] Comment:{T4, FREE {[id number]) 05/26/2011 8:47 AM EST 05/26/2011 12:22 PM EST Narrative Resulting Agency Comment [id number] Alison Francis MD LABORATORY Final Result Performing Organization Address [facility] de Phone Number [facility] [address] [place] [address] * (ABNORMAL) VITAMIN D, 25-HYDROXY, LC/MS/MS (05/26/2011 8:47 AM EST) Only the most recent of4 resultswithin the time period is included. Vitamin D, 25-OH, Total 26(L) 30 - 100 ng/mL [facility] Comment:{VITAMIN D, 25 OH, T OTAL {[id number]) Vitamin D, D3 (Cholecalciferol ) 26 ng/mL [facility] Comment:{VITAMIN D, 25 OH, D 3 {[id number]) Vitamin D, 25-OH, D2 (Calciferol) <4 ng/mL [facility] Comment: {VITAMIN D, 25 OH, D2 {[id number]) ? 25-OHD3 indicates both endogenous production and [...] 12:22 PM EST Narrative Resulting Agency Comment [id number] us Alison Francis MD LABORATORY Final Result Performing Organization Address [facility] de Phone Number [facility] [address] [place] [address] * CONSULT RHEUMATOLOGY FC (10/22/2010) us Alison Francis MD REFERRAL Final Result * ALANINE AMINOTRANSFERASE (ALT), SERUM (02/15/2010) Only the most recent of2 resultswithin the time period is included. Pathologist [facility] ALT (SGPT) 20 6 - 40 U/L [facility] 02/15/2010 02/15/2010 6:0 8 PM EST us Alison Francis MD LAB SAME DAY RESULT Final Resul t Performing Organization Address [facility] de Phone Number [facility] [address] [place] [address] * VITAMIN B12 (02/15/2010) Only the most recent of2 resultswithin the time period is included. VITB12 352 200 - 1100 PG/ML [facility] 02/15/2010 02/15/2010 6:0 8 PM EST us Alison Francis MD LABORATORY Final Result Performing Organization Address [facility] de Phone Number [facility] [address] [place] [address] * SCREENING DIGITAL MAMMOGRAPHY BILATERAL (08/29/2008 9:14 AM EDT) RADIOLOGY REPORT Digital Bilateral Screening Mammograms: This [...] Study/History: routine TEST(S) PROCESSED BY [facility] us Alison Francis MD GENERAL IMAGING- OTHER [...] RESULT Final Resul t * MAGNESIUM (08/15/2008) [facility] MAGNESIUM 2.0 1.5 - 2.5 MG/DL 08/15/2008 08/15/2008 5:5 3 PM EDT us Alison Francis MD LABORATORY Final Result * XRAY FOOT COMPLETE MIN 3 VWS - RIGHT (07/03/2008 8:43 AM EDT) [facility] RADIOLOGY REPORT PROVIDED CLINICAL HISTORY: R ft [...] DROP ??AP/LAT/OBL TEST(S) PROCESSED BY [facility] AT [facility] Paco Uribe DPM GENERAL IMAGING- OTHER Fin al Result * SCREENING MAMMOGRAPHY BILATERAL (TWO VIEW FILM STUDY OF EACH BREAST) (08/24/2007 1:33 PM EDT) [facility] RADIOLOGY REPORT Bilateral Screening Mammograms: This mammogram was interpreted with the assistance of the [employer] computer-aided detection (CAD) system. Some fibroglandular density [...] radiologist. BI-RADS Category 1: Negative *#A N#* [facility] (CLIA# [id number]) LETTER SENT A mammogram letter type A N was mailed to patient [facility] (CLIA# [id number]) Anatomical Region Laterality Modality Other 08/24/2007 1:33 PM EDT Narrative 08/29/2007 10:51 AM EDT Reason for Study/History: routine -- overdue TEST(S) PROCESSED BY [facility] AT [facility] us Alison Francis MD GENERAL IMAGING- OTHER Final Re sult * CYTOLOGY/PATHOLOGY UNSPECIFIED (06/23/2007) Narrative Transcriptions [facility], Unknown Provider - 07/10/2007 12:00 AM EDT us Unknown Provider [facility] PATHOLOGY Final Resu lt * UNSPECIFIED MAJOR PROCEDURE (06/22/2007) Narrative Transcriptions [facility], Unknown Provider - 07/09/2007 12:00 AM EDT us Unknown Provider [facility] PROCEDURES Final Resu lt * MRI LUMBAR SPINE (06/06/2007 2:04 AM EDT) RADIOLOGY REPORT EXAM: MRI of the lumbar spine. INDICATION: Sciatica with right foot drop. TECHNIQUE: Routine protocol. 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 The window shade cutter and mounter image also shows several ??areas of increased T2 signal within both kidneys. These are likely to represent multiple cysts however, correlation with renal ultrasound would be suggested. Coronal window shade cutter and mounter image shows mild dextroscoliosis in the mid [...] both kidneys. Consider correlation with renal ultrasound. [facility] (CLIA# [id number]) Anatomical Region Laterality Modality Other 06/06/2007 2:04 AM EDT Narrative 06/08/2007 4:11 PM EDT Reason for Study/History: SCIATICA PAIN TO LEG WITH RT FOOT DROP TEST(S) PROCESSED BY [facility] AT [facility] us Regan Darling MD GENERAL IMAGING- OTHER Final Result * XRAY SPINE LUMBOSACRAL AP & LAT (05/25/2007 12:29 PM EST) Only the most recent of3 resultswithin the time period is included. Pathologist [facility] RADIOLOGY REPORT Examination: Multiple views of the [...] the left sacroiliac joint. [facility] (CLIA# [id number]) Anatomical Region Laterality Modality Other 05/25/2007 12:2 9 PM EST Narrative 05/26/2007 10:29 AM EST Reason for Study/History: SCIATICA TEST(S) PROCESSED BY [facility] AT [facility] Regan Darling MD GENERAL IMAGING- OTHER Final Result * (ABNORMAL) CBC W/O DIFFERENTIAL (04/09/2007) Pathologist [facility] WHITE BLOOD COUNT 5.4 3.8 - 10.8 THOUS/UL [facility] (CLIA# [id number]) RBC 5.18(H) 3.80 - 5.10 MIL/UL [facility] (CLIA# [id number]) Hemoglobin 15.2 11.7 - 15.5 G/DL [facility] (CLIA# [id number]) HCT (HEMATOCRIT) 44.4 35.0 - 45.0 % [facility] (CLIA# [id number]) MCV 85.8 80.0 - 100.0 FL [facility] (CLIA# [id number]) MCH 29.4 27.0 - 33.0 PG FC [facility] (CLIA# [id number]) MCHC 34.3 32.0 - 36.0 G/DL [facility] (CLIA# [id number]) PLATELETS 236 140 - 400 THOUS/UL [facility] (CLIA# [id number]) RDW 13.0 11.0 - 15.0 % [facility] (CLIA# [id number]) MPV 7.9 7.5 - 11.5 FL [facility] (CLIA# [id number]) 04/09/2007 04/09/2007 3:2 4 PM EST Regan Darling MD LABORATORY Final Result Performing Organization Address [facility]/ZIP Co de Phone Number [facility] (CLIA# [id number]) [address] [place] [address] * THYROID CASCADE (04/09/2007) TSH, THYROTROPIN 1.38 0.40 - 4.50 UIU/ML [facility] (CLIA# [id number]) 04/09/2007 04/09/2007 3:2 4 PM EST Regan Darling MD LABORATORY Final Result Performing Organization Address [facility] de Phone Number [facility] (CLIA# [id number]) [address] [place] [address] * (ABNORMAL) URINALYSIS, COMPLETE (DIP & MICRO) (04/09/2007) COLOR (URINE) YELLOW YELLOW [facility] (CLIA# [id number]) APPEARANCE (URINE) TURBID(A) CLEAR [facility] (CLIA# [id number]) SPECIFIC GRAVITY 1.028 1.001 - 1.035 [facility] (CLIA# [id number]) PH (URINE) 5.5 5.0 - 8.0 [facility] (CLIA# [id number]) PROTEIN (URINE) NEG NEG [facility] (CLIA# [id number]) GLUCOSE (URINE) NEG NEG [facility] (CLIA# [id number]) Ketones (Urine) NEG NEG [facility] (CLIA# [id number]) BILIRUBIN (URINE) NEG NEG FC [facility] (CLIA# [id number]) BLOOD (URINE) NEG NEG FC [facility] (CLIA# [id number]) WBC (URINE) NEG NEG FC [facility] (CLIA# [id number]) NITRITE (URINE) NEG NEG [facility] (CLIA# [id number]) WBC (URINE) 0-4 0-4/HPF [facility] (CLIA# [id number]) RBC (Urine Sed) 0 0-3/HPF [facility] (CLIA# [id number]) EPITHELIAL CELLS.SQUAMOUS (URINE SED) 0 0-5/HPF FC [facility] (CLIA# [id number]) EPITHELIAL CELLS.TRANSITIO NAL (URINE SED) 0 0-5/HPF FC [facility] (CLIA# [id number]) EPITHELIAL CELLS.RENAL (URINE SED) 0 0-3/HPF [facility] (CLIA# [id number]) BACTERIA (URINE) NONE SEEN NONE SEEN FC [facility] (CLIA# [id number]) 04/09/2007 04/09/2007 3:2 4 PM EST us Regan Darling MD LAB SAME DAY RESULT Final Re sult [facility] (CLIA# [id number]) [address] [place] [address] * GASTROENTEROLOGY TEST/PROCEDURE, UNSPECIFIED (04/07/2006 12:00 AM EST) Narrative Transcriptions Eleonora Taylor MD - 08/27/2008 12:00 AM EDT Eleonora Taylor MD PROCEDURES Final Result * (ABNORMAL) CHEMISTRY PANEL CP-7 (09/26/2005 10:00 AM EDT) CALCIUM 9.9 8.5 - 10.4 MG/DL [facility] (CLIA# [id number]) BUN 24 7 - 25 MG/DL [facility] (CLIA# [id number]) CREATININE 0.8 0.5 - 1.2 MG/DL [facility] (CLIA# [id number]) BUN/Creatinine Ratio 30(H) 6 - 25 [facility] (CLIA# [id number]) Glucose 92 65 - 99 MG/DL [facility] (CLIA# [id number]) SODIUM 140 135 - 146 MMOL/L [facility] (CLIA# [id number]) POTASSIUM 3.7 3.5 - 5.3 MMOL/L [facility] (CLIA# [id number]) CHLORIDE 100 98 - 110 MMOL/L [facility] (CLIA# [id number]) CARBON DIOXIDE 25 21 - 33 MMOL/L [facility] (CLIA# [id number]) 09/26/2005 10:0 0 AM EDT 09/26/2005 7:47 PM EDT Regan Darling MD LABORATORY Final Result Performing Organization Address [facility]/ZIP Co de Phone Number [facility] (CLIA# [id number]) [address] [place] [address] * TSH, THYROTROPIN (06/17/2005 9:16 AM EST) TSH, THYROTROPIN 1.4 0.3 - 5.5 UIU/ML [facility] (CLIA# [id number]) 06/17/2005 9:16 AM EST 06/17/2005 9:16 AM EST Narrative [facility] (CLIA# [id number]) - 06/17/2005 9:16 AM EST FASTING Regan Darling MD LABORATORY Final Result Performing Organization Address [facility] Co de Phone Number [facility] (CLIA# [id number]) [address] [place] [address] * (ABNORMAL) URINALYSIS (06/17/2005 9:16 AM EST) Only the most recent of2 resultswithin the time period is included. COLOR (URINE) YELLOW YELLOW- [facility] (CLIA# [id number]) APPEARANCE (URINE) CLEAR CLEAR- [facility] (CLIA# [id number]) SPECIFIC GRAVITY 1.026 [facility] (CLIA# [id number]) Comment:Reference Range: 1.0 01-1.035 PH (URINE) 6.0 5.0 - 8.0 [facility] (CLIA# [id number]) PROTEIN (URINE) NEG NEG- [facility] (CLIA# [id number]) GLUCOSE (URINE) NEG NEG- [facility] (CLIA# [id number]) Ketones (Urine) TRACE(A) NEG- [facility] (CLIA# [id number]) BILIRUBIN (URINE) NEG NEG- [facility] (CLIA# [id number]) BLOOD (URINE) NEG NEG- [facility] (CLIA# [id number]) WBC (URINE) TRACE(A) NEG- [facility] (CLIA# [id number]) NITRITE (URINE) NEG NEG- [facility] (CLIA# [id number]) WBC (URINE) 6-10(A) 0-4/HPF [facility] (CLIA# [id number]) RBC (Urine Sed) 0 0-3/HPF [facility] (CLIA# [id number]) EPITHELIAL CELLS.SQUAMOUS (URINE SED) 0 0-5/HPF FC [facility] (CLIA# [id number]) EPITHELIAL CELLS.TRANSITION AL (URINE SED) 0 0-5/HPF [facility] (CLIA# [id number]) EPITHELIAL CELLS.RENAL (URINE SED) 0 0-3/HPF FC [facility] (CLIA# [id number]) BACTERIA (URINE) NONE SEEN NONE SEEN- [facility] (CLIA# [id number]) Microscopic Other (Urine) FEW MUCOUS(A) [facility] (CLIA# [id number]) 06/17/2005 9:16 AM EST 06/17/2005 9:16 AM EST Narrative [facility] (CLIA# [id number]) - 06/17/2005 9:16 AM EST FASTING us Regan Darling MD LABORATORY Final Result Performing Organization Address [facility] Co de Phone Number [facility] (CLIA# [id number]) [address] [place] [address] * (ABNORMAL) CARDIAC RISK/LIPID PROFILE I (06/17/2005 9:16 AM EST) [facility] CHOLESTEROL, TOTAL 211(H) 100 - 199 MG/DL [facility] (CLIA# [id number]) TRIGLYCERIDES 168(H) 30 - 149 MG/DL [facility] (CLIA# [id number]) HDL-CHOLESTEROL 48 40 - 77 MG/DL [facility] (CLIA# [id number]) LDL-CHOLESTEROL 129 62 - 130 MG/DL [facility] (CLIA# [id number]) Comment: RISK CATEGORY: ??LDL-CHOLESTEROL GOAL CHD AND CHD RISK EQUIVALENTS: ??<100 MULTIPLE (2+) FACTORS: ??<130 ZERO TO ONE RISK FACTOR: ??<160 CHD RELATIVE RISK RATIO (TOTAL/HDL) 4.40 [facility] (CLIA# [id number]) Comment:(1.0 X AVERAGE) 06/17/2005 9:16 AM EST 06/17/2005 9:16 AM EST Narrative [facility] (CLIA# [id number]) - 06/17/2005 9:16 AM EST FASTING Regan Darling MD LABORATORY Final Result Performing Organization Address [facility] Co de Phone Number [facility] (CLIA# [id number]) [address] [place] [address] * DUAL ENERGY DEXA BONE DENSITY ONE/MORE SITES AXIAL SKEL (06/08/2005 9:13 AM EST) Only the most recent of2 resultswithin the time period is included. [facility] RADIOLOGY REPORT Bone densitometry: Average BMD of [...] significant change in the left hip. [facility] (CLIA# [id number]) Anatomical Region Laterality Modality Other 06/08/2005 9:13 AM EST Narrative 06/13/2005 4:05 PM EST Reason for Study/History: ROUTINE Test(s) processed by : [employer] [facility] Regan Darling MD GENERAL IMAGING- OTHER [...] interpreting radiologist.. BI-RADS Category 1: Negative. [facility] (CLIA# [id number]) LETTER SENT A mammogram letter type A N was printed on 06/13/2005 [facility] (CLIA# [id number]) Anatomical Region Laterality Modality Other 06/03/2005 2:19 PM EST Narrative 06/06/2005 2:17 PM EST Reason for Study/History: routine -- overdue Test(s) processed by : [facility] Regan Darling MD GENERAL IMAGING- OTHER Final Result * XRAY PELVIS AP ONLY (06/03/2005 1:44 PM EST) [facility] RADIOLOGY REPORT Single AP view of the [...] disease and no evidence of acute fracture. [facility] (CLIA# [id number]) Anatomical Region Laterality Modality Other 06/03/2005 1:44 PM EST Narrative 06/07/2005 1:43 PM EST Reason for Study/History: chiro - cervical -dorsal -lumbopelvic-ac [place] lbp /neck & mid back stiffness Test(s) processed by : [employer] [facility] IMAGING- OTHER Final R esult * XRAY SPINE THORACIC AP & LAT (06/03/2005 1:43 PM EST) [facility] RADIOLOGY REPORT Two views of the thoracic spine demonstrate mild degenerative changes characterized by multilevel anterior and lateral osteophytes seen at the midthoracic spine with no evidence of acute fracture, dislocation or spondylolisthesis . There is mild scoliosis. Impression: Scoliosis and mild degenerative changes. [facility] (CLIA# [id number]) Anatomical Region Laterality Modality Other 06/03/2005 1:43 PM EST Narrative 06/07/2005 1:42 PM EST Reason for Study/History: chiro - cervical -dorsal -lumbopelvic-ac [place] lbp /neck & mid back stiffness Test(s) processed by : [employer] Regan Reynolds [facility] IMAGING- OTHER Final R esult * XRAY SPINE CERVICAL AP & LAT (06/03/2005 1:43 PM EST) [facility] RADIOLOGY REPORT Three views of the cervical [...] evidence of acute fracture. [facility] (CLIA# [id number]) Anatomical Region Laterality Modality Other 06/03/2005 1:43 PM EST Narrative 06/07/2005 1:43 PM EST Reason for Study/History: chiro - cervical -dorsal -lumbopelvic-ac [place] lbp /neck & mid back stiffness Test(s) processed by : [employer] G[employer] us Regan Reynolds GENERAL IMAGING- OTHER Final R esult * STREP SCREEN CULTURE (GROUP A) (12/03/1999 2:17 PM EDT) REPORT STATUS: Final [facility] (CLIA# [id number]) STREPTOCOCCUS PYOGENES (GROUP A) CULTURE [facility] (CLIA# [id number]) Comment:No Group A Strep iso lated 12/03/1999 2:17 PM EDT 12/05/1999 7:28 AM EDT us Long Smith MD LABORATORY Final Resul t [facility] (CLIA# [id number]) [address] [place] [address] * XRAY CHEST 2 VIEWS PA & LAT (05/13/1999 10:00 AM EST) Only the most recent of3 resultswithin the time period is included. RADIOLOGY REPORT Chest: The heart is mildly enlarged but there is no failure. The lungs are clear and sulci are sharp. Findings described on 03/16/99 and 04/02/99 have improved. [facility] (CLIA# [id number]) Anatomical Region Laterality Modality Other 05/13/1999 10:0 0 AM EST Narrative 05/20/1999 10:29 AM EST Reason for Study/History: FOLLOW-UP PNEUMONIA Test(s) processed by : [employer]in GUEVARA2 us Chalino Lino MD GENERAL IMAGING- OTHER Fin al Result * (ABNORMAL) CBC 5 PART DIFF (02/22/1999 2:51 AM EST) Only the most recent of4 resultswithin the time period is included. SMEAR REVIEW [facility] (CLIA# [id number]) WHITE BLOOD COUNT 7.0 3.8 - 10.1 K/mm3 [facility] (CLIA# [id number]) RBC 5.19(H) 3.90 - 5.10 M/mm3 [facility] (CLIA# [id number]) Hemoglobin 15.5 12.0 - 15.6 g/dl [facility] (CLIA# [id number]) HCT (HEMATOCRIT) 46.2(H) 35.0 - 45.0 % [facility] (CLIA# [id number]) MCV 89.1 81.0 - 96.0 um3 [facility] (CLIA# [id number]) MCHC 33.6 32.0 - 36.0 g/dL [facility] (CLIA# [id number]) RDW 11.9 11.4 - 14.4 % [facility] (CLIA# [id number]) PLATELETS 235 150 - 450 K/mm3 [facility] (CLIA# [id number]) MPV 7.1(L) 7.4 - 10.4 f/L [facility] (CLIA# [id number]) NEUTROPHIL % 84.6(H) 42 - 76 % [facility] (CLIA# [id number]) LYMPHOCYTE % 12.7(L) 15 - 45 % [facility] (CLIA# [id number]) MONOCYTE % 1.7(L) 4 - 13 % [facility] (CLIA# [id number]) EOSINOPHIL % 0.3 0 - 6 % [facility] (CLIA# [id number]) BASOPHIL % 0.7 0 - 2 % [facility] (CLIA# [id number]) NEUTROPHILS # 5.9 1.8 - 7.7 K/mm3 [facility] (CLIA# [id number]) . [facility] (CLIA# [id number]) 02/22/1999 2:51 AM EST 02/22/1999 2:55 AM EST Narrative [facility] (CLIA# [id number]) - 02/22/1999 2:51 AM EST Ordered by INPT HOUSE SERVICE us Unknown Provider [facility] LABORATORY Final Resul t Performing Organization Address City/[facility] Co de Phone Number [facility] (CLIA# [id number]) [address] [place] [address] * AMYLASE (02/22/1999 2:51 AM EST) Only the most recent of2 resultswithin the time period is included. AMYLASE 112 35 - 115 U/L [facility] (CLIA# [id number]) 02/22/1999 2:51 AM EST 02/22/1999 2:55 AM EST Narrative [facility] (CLIA# [id number]) - 02/22/1999 2:51 AM EST Ordered by INPT HOUSE SERVICE us Unknown Provider [facility] LABORATORY Final Resul t Performing Organization Address City/[facility] Co de Phone Number [facility] (CLIA# [id number]) [address] [place] [address] * (ABNORMAL) CHEMISTRY PANEL CP-7 (02/22/1999 2:51 AM EST) Only the most recent of4 resultswithin the time period is included. SODIUM 146(H) 135 - 145 MMOL/L [facility] (CLIA# [id number]) POTASSIUM 4.4 3.4 - 5.1 MMOL/L [facility] (CLIA# [id number]) Comment:SAMPLE 1+ HEMOLYZED 6060 CHLORIDE 106 98 - 108 MMOL/L [facility] (CLIA# [id number]) CARBON DIOXIDE 33(H) 23 - 30 MMOL/L [facility] (CLIA# [id number]) BUN 18 6 - 22 MG/DL [facility] (CLIA# [id number]) CREATININE 0.7 0.4 - 1.3 MG/DL [facility] (CLIA# [id number]) Glucose 196(H) 70 - 110 MG/DL [facility] (CLIA# [id number]) Comment: Effective January 25, 1999: New critical high value for glucose ?6060 has been changed from 500 to 450. ?6060 BUN/Creatinine Ratio 25.7 6.0 - 35.0 [facility] (CLIA# [id number]) ANION GAP 7 2 - 11 [facility] (CLIA# [id number]) Comment: The size of the anion gap is significantly ?6060 influenced by albumin levels. ? 6060 02/22/1999 2:51 AM EST 02/22/1999 2:55 AM EST Narrative [facility] (CLIA# [id number]) - 02/22/1999 2:51 AM EST Ordered by INPT HOUSE SERVICE us Unknown Provider [facility] LABORATORY Final Resul t [facility] (CLIA# [id number]) [address] [place] [address] * CA 125 (07/01/1998 5:18 PM EDT) CA 125 6.3 U/ML [facility] (CLIA# [id number]) Comment: CA125 Reference Note: Please note new [...] 8:58 PM EDT Narrative [facility] (CLIA# [id number]) - 07/01/1998 5:18 PM EDT Normal reference [...] LABORATORY Final Resu lt [facility] (CLIA# [id number]) [address] [place] [address] * TRIGLYCERIDES (07/01/1998 5:18 PM EDT) Only the most recent of2 resultswithin the time period is included. TRIGLYCERIDES 94 MG/DL [facility] (CLIA# [id number]) 07/01/1998 5:18 PM EDT 07/01/1998 8:55 PM EDT Narrative [facility] (CLIA# [id number]) - 07/01/1998 5:18 PM EDT NOT FASTING [...] Resu lt Performing Organization Address [facility] Co de Phone Number [facility] (CLIA# [id number]) [address] [place] [address] * ALT (SGPT) (07/01/1998 5:18 PM EDT) Only the most recent of3 resultswithin the time period is included. ALT (SGPT) 22 10 - 40 IU/L [facility] (CLIA# [id number]) 07/01/1998 5:18 PM EDT 07/01/1998 8:55 PM EDT Narrative [facility] (CLIA# [id number]) - 07/01/1998 5:18 PM EDT Normal reference [...] Resu lt Performing Organization Address [facility]/ZIP Co de Phone Number [facility] (CLIA# [id number]) [address] [place] [address] * AST (SGOT) (07/01/1998 5:18 PM EDT) Only the most recent of3 resultswithin the time period is included. AST (SGOT) 26 10 - 42 IU/L [facility] (CLIA# [id number]) 07/01/1998 5:18 PM EDT 07/01/1998 8:55 PM EDT Narrative [facility] (CLIA# [id number]) - 07/01/1998 5:18 PM EDT Normal reference [...] LABORATORY Final Resu lt [facility] (CLIA# [id number]) [address] [place] [address] * CHOLESTEROL, LDL (DIRECT) (07/01/1998 5:18 PM EDT) Only the most recent of2 resultswithin the time period is included. Pathologist [facility] LDL-CHOLESTEROL 141 MG/DL [facility] (CLIA# [id number]) Comment: LDL REFERENCE RANGE COMMENT: The LDL result is a calculated value for Triglyceride values of less than 400 mg/dl Triglyceride values of less than 400 mg/dl 07/01/1998 5:18 PM EDT 07/01/1998 8:55 PM EDT Narrative [facility] (CLIA# [id number]) - 07/01/1998 5:18 PM EDT NOT FASTING [...] LABORATORY Final Resu lt Performing Organization Address City/[facility]/ZIP Co de Phone Number [facility] (CLIA# [id number]) [address] [place] [address] * CHOLESTEROL, HDL (DIRECT) (07/01/1998 5:18 PM EDT) Only the most recent of2 resultswithin the time period is included. HDL-CHOLESTEROL 61 MG/DL [facility] (CLIA# [id number]) 07/01/1998 5:18 PM EDT 07/01/1998 8:55 PM EDT Narrative [facility] (CLIA# [id number]) - 07/01/1998 5:18 PM EDT NOT FASTING [...] Resu lt Performing Organization Address [facility] Co de Phone Number [facility] (CLIA# [id number]) [address] [place] [address] * CHOLESTEROL, TOTAL (07/01/1998 5:18 PM EDT) Only the most recent of2 resultswithin the time period is included. CHOLESTEROL, TOTAL 221 MG/DL [facility] (CLIA# [id number]) 07/01/1998 5:18 PM EDT 07/01/1998 8:55 PM EDT Narrative [facility] (CLIA# [id number]) - 07/01/1998 5:18 PM EDT NOT FASTING [...] LABORATORY Final Resu lt Performing Organization Address City/[facility]/ZIP Co de Phone Number [facility] (CLIA# [id number]) [address] [place] [address] * CALCIUM (07/01/1998 5:18 PM EDT) CALCIUM 9.4 8.5 - 10.2 MG/DL [facility] (CLIA# [id number]) 07/01/1998 5:18 PM EDT 07/01/1998 8:55 PM EDT Narrative [facility] (CLIA# [id number]) - 07/01/1998 5:18 PM EDT Normal reference [...] LABORATORY Final Resu lt [facility] (CLIA# [id number]) [address] [place] [address] * MAMMOGRAPHY-BILATERAL (09/29/1993 8:30 AM EDT) Pathologist [facility] RADIOLOGY REPORT Procedure ID: [id number] MAMMOGRAM, BILATERAL BILATERAL MAMMOGRAMS Parenchymal and periductal [...] language describing results will follow this report. ??[facility] and Medicare regulations state that this report must be given to the patient. [facility] (CLIA# [id number]) Anatomical Region Laterality Modality Other 09/29/1993 8:30 AM EDT Narrative 09/30/1993 8:13 AM EDT Reason for Study/History: ROUTINE Test(s) processed by : [employer] us Chalino Lino MD GENERAL IMAGING- OTHER Fin al Result * WBC ([facility]) (07/02/1993 9:54 AM EDT) Pathologist [facility] WHITE BLOOD COUNT 6.4 3.8 - 10.8 K/mm3 [facility] (CLIA# [id number]) 07/02/1993 9:54 AM EDT 07/02/1993 10:00 AM EDT Narrative [facility] (CLIA# [id number]) - 07/02/1993 9:54 AM EDT [address] [place] [address]. us Chalino Lino MD LABORATORY Final Resu lt Performing Organization Address [facility]/ZIP Co de Phone Number [facility] (CLIA# [id number]) [address] [place] [address] * ALKALINE PHOSPHATASE (07/01/1993 11:21 AM EDT) ALKALINE PHOSPHATASE 58 30 - 115 IU/L [facility] (CLIA# [id number]) 07/01/1993 11:2 1 AM EDT 07/01/1993 11:24 AM EDT Narrative [facility] (CLIA# [id number]) - 07/01/1993 11:21 AM EDT Ordered by INPT HOUSE SERVICE us Unknown Provider [facility] LABORATORY Final Resul t [facility] (CLIA# [id number]) [address] [place] [address] * (ABNORMAL) URINALYSIS (07/01/1993 11:19 AM EDT) COLOR (URINE) YELLOW [facility] (CLIA# [id number]) APPEARANCE (URINE) CLEAR [facility] (CLIA# [id number]) GLUCOSE (URINE) NEG 0 - 0 mg/dL FC [facility] (CLIA# [id number]) BILIRUBIN (URINE) NEG 0 - 0 FC [facility] (CLIA# [id number]) Ketones (Urine) >80(A) 0 - 0 mg/dL [facility] (CLIA# [id number]) SPECIFIC GRAVITY 1.020 1.003 - 1.035 FC [facility] (CLIA# [id number]) UROBILINOGEN 0.2 0.2 - 1.0 EU/dl [facility] (CLIA# [id number]) NITRITE (URINE) NEG [facility] (CLIA# [id number]) BLOOD (URINE) NEG 0 - 0 [facility] (CLIA# [id number]) PH (URINE) 7.5 5.0 - 8.5 [facility] (CLIA# [id number]) PROTEIN (URINE) NEG 0 - 0 mg/dL [facility] (CLIA# [id number]) WBC (URINE) NEG 0 - 0 [facility] (CLIA# [id number]) 07/01/1993 11:1 9 AM EDT 07/01/1993 11:21 AM EDT Narrative [facility] (CLIA# [id number]) - 07/01/1993 11:19 AM EDT Ordered by INPT HOUSE SERV[facility] us Unknown Provider [facility] LABORATORY Final Resul t Performing Organization Address City/State/[facility] Co de Phone Number [facility] (CLIA# [id number]) [address] [place] [address] Visit Diagnoses Diagnosis Start Date Symptoms involving [...] 03/22/2024 Other secondary scoliosis, lumbar region 05/14/2024 Back pain, unspecified back location, unspecified back pain laterality, unspecified chronicity 06/03/2024 Chronic right-sided low back pain with bilateral sciatica 06/04/2024 Seizures ([facility]) Other convulsions 06/04/2024 Primary insomnia Persistent disorder of initiating or maintaining sleep 06/04/2024 Mood disorder Unspecified episodic mood disorder 06/04/2024 Mild cognitive impairment Mild cognitive impairment, so stated 06/04/2024 Hypertension Essential hypertension, benign 06/04/2024 Stage 2 chronic kidney disease 06/04/2024 Slow transit constipation 06/04/2024 Major depressive disorder, recurrent episode, in partial remission Major depressive disorder, recurrent episode, in partial or unspecified remission 06/04/2024 Unspecified dementia, unspecified severity, without behavioral disturbance, psychotic disturbance, mood disturbance, and anxiety ([facility]) 06/04/2024 Goals Goal Patient Goal Type Associated Problems Recent Progress Patient-Stated? Author Blood Pressure < 140/90 Blood Pressure 150/74( 025 1:03 PM EDT) Marsha Farah CMA Care Teams Exterior Interior Specialist Relationship Specialty Start Date End Date Vale Walls NP [address] [place] [address] PCP - General Geriatrics 07/13/20 Vale Walls NP [address] [place] [address] PCP - Backup PCP Geriatrics 10/06/21
--- OUTSIDE RECORDS SUMMARY | 2024-07-05 12:16 | XMS_ITS | Encounter Summary ---
Author Organization [facility] Address [address] [place] [address] Care Team Providers Care Manager Epic Name Role Phone Shreyas Orellana MD Primary Care Provider UnavailAshanti Smith MD Primary Care Provider [phone] Shreyas Orellana MD Primary Care Provider UnavailAshanti Smith MD Primary Care Provider Vale Walls NP Primary Care Provider Chastity Cortes MD Unavailable Vale Walls NP Unavailable [phone] Encounter Details Date Type Department Care Team (Late st Contact Info) Description 08/08/2018 Orders Only [facility] [address] [place] [phone] Shreyas Orellana MD Social History Tobacco Use [...] 025 1:03 PM EDT) No Marsha Guzman, JESSICA documented as of this encounter Procedures * Due to [place] ThisClic[employer] law, this organization might not be sharing [...] this encounter Results * Due to [place] This[employer] law, this organization might not be sharing negative HIV tests. * VITAMIN B12 (CYANOCOBALAMIN), SERUM (08/08/2018 1:24 PM EDT) Vitamin B12 (Cobalamins) 445 200 - 1100 pg/mL [facility] 08/08/2018 1:24 PM EDT 08/08/2018 7:50 PM EDT Narrative Resulting Agency Comment [id number] Shreyas Orellana MD LABORATORY Final Result [facility] [address] [place] [address] * THYROID CASCADING REFLEX (08/08/2018 1:24 PM EDT) TSH 2.94 0.40 - 4.50 mIU/L [facility] 08/08/2018 1:24 PM EDT 08/08/2018 7:50 PM EDT Narrative Resulting Agency Comment [id number] Shreyas Orellana MD LABORATORY Final Result [facility] [address] [place] [address] * BASIC METABOLIC PANEL WITH (GFR) (08/08/2018 1:24 PM EDT) Glucose 83 65 - 99 mg/dL [facility] Comment:Fasting reference in terval Urea Nitrogen Blood (BUN) 22 7 - 25 mg/dL [facility] Creatinine 0.79 0.60 - 0.88 mg/dL [facility] Comment: For patients >49 years of age, the reference limit for Creatinine is approximately 13% higher for people identified as -Malagasy. EGFR 71 > OR = 60 mL/min/1 .73m2 [facility] GFR () 82 > OR = 60 mL/min/1 .73m2 [facility] BUN/Creatinine Ratio NOT APPLICABLE 6 - 22 (calc) [facility] Sodium 137 135 - [...] needs for GFR calculation. Resulting Agency Comment [id number] Shreyas Orellana MD LABORATORY Final Result [facility] [address] [place] [address] * CBC INCLUDES DIFFERENTIAL AND PLATELET COUNT [...] 7:50 PM EDT Narrative Resulting Agency Comment [id number] Shreyas Orellana MD LAB SAME DAY RESULT Final Resul t Performing Organization Address City/State/[facility] Co de Phone Number [facility] [address] [place] [address] documented in this encounter Visit Diagnoses Diagnosis Fatigue, unspecified type documented in this encounter Additional Health Concerns Infection Onset Date Last Indicated Resolved Time COVID-19 Confirmed 07/11/2019 07/11/2019 0 8:12 PM EDT documented as of this encounter Care Teams Manager Epic Relationship Specialty Start Date End Date Shreyas Orellana MD PCP - General Internal Medicine 09/02/15 07/07/19 Ashanti Kumar MD PCP - General Family Medicine 07/08/19 07/09/19 Shreyas Orellana MD PCP - General Internal Medicine 07/10/19 09/06/19 Ashanti Kumar MD PCP - General Family Medicine 09/07/19 07/12/20 Vale Walls NP [address] [place] [address] PCP - General Geriatrics 07/13/20 Chastity Cortes MD [address] [place] [address] PCP - Backup PCP Geriatrics 10/23/20 03/30/21 Vale Walls NP [address] [place] [address] PCP - Backup PCP Geriatrics 10/06/21 documented as of this encounter
--- OUTSIDE RECORDS SUMMARY | 2024-07-05 12:16 | XMS_ITS | Encounter Summary ---
Author Organization [facility] Address [address] [place] [address] Care Team Providers Care Lather Apprentice Name Role Phone Ashanti Kumar MD Primary Care Provider Vale Walls COMMUNITY ORGANIZATION AIDE Primary Care Provider Chastity Cortes MD Unavailable [phone] CouVale badillo COMMUNITY ORGANIZATION AIDE Unavailable [phone] Encounter Details Date Type Department Care Team (Late st Contact Info) Description 12/27/2019 Orders Only [facility] [address] [place] [phone] Shreyas Orellana MD Social History Tobacco [...] Start Date Job End Date 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 No / Unsure 12/20/2019 10:50 AM EDT documented as of this encounter Progress Notes * Evette Roa - 12/27/2019 11:02 AM EDT Please let [...] this encounter Procedures * Due to [place] [employer] law, this organization might not be [...] this encounter Results * Due to [place] [employer] law, this organization might not be [...] approximately 13% higher for people identified as -Citizen Of [place]. EGFR 67 > OR = 60 mL/min/1 [...] needs for GFR calculation. Resulting Agency Comment [id number] us Shreyas Orellana MD LABORATORY Final Result [facility] [address] [place] [address] * CBC INCLUDES DIFFERENTIAL AND PLATELET COUNT [...] 11:49 AM EDT Narrative Resulting Agency Comment [id number] us Shreyas Orellana MD LAB SAME DAY RESULT Final Resul t [facility] [address] [place] [address] documented in this encounter Visit Diagnoses Diagnosis Pneumonia of left lower lobe due to infectious organism documented in this encounter Care Teams Lather Apprentice Relationship Specialty Start Date End Date Ashanti Kumar MD PCP - General Family Medicine 09/07/19 07/12/20 Vale Walls NP [address] [place] [address] PCP - General Geriatrics 07/13/20 Chastity Cortes MD [address] [place] [address] PCP - Backup PCP Geriatrics 10/23/20 03/30/21 Vale Walls NP [address] [place] [address] PCP - Backup PCP Geriatrics 10/06/21 documented as of this encounter
--- OUTSIDE RECORDS SUMMARY | 2024-07-05 12:16 | XMS_ITS | Encounter Summary ---
Author Organization [facility] Address [address] [place] [address] Care Team Providers Care Laser Machine Operator Name Role Phone Alison Francis MD Primary Care Provider Shreyas Orellana MD Primary Care Provider UnavailAshanti Smith MD Primary Care Provider [phone] Shreyas Orellana MD Primary Care Provider UnavailAshanti Smith MD Primary Care Provider [phone] Vale Walls PHYSICS AND ASTRONOMY PROFESSOR Primary Care Provider Chastity Cortes MD Unavailable [phone] Vale Walls PHYSICS AND ASTRONOMY PROFESSOR Unavailable [phone] Reason for Visit * Reason Comments E-prescribing Refill Request Encounter Details Date Type Department Care Team (Late st Contact Info) Description 03/09/2011 [facility] [address] [place] [phone] Alison Francis MD [address] [place] [address] E-prescribing Refill Request Social History Tobacco Use [...] documented as of this encounter Care Teams Laser Machine Operator Relationship Specialty Start Date End Date Alison Francis MD PCP - General 03/20/10 09/01/15 Shreyas Orellana MD PCP - General Internal Medicine 09/02/15 07/07/19 Ashanti Kumar MD PCP - General Family Medicine 07/08/19 07/09/19 Shreyas Orellana MD PCP - General Internal Medicine 07/10/19 09/06/19 Ashanti Kumar MD PCP - General Family Medicine 09/07/19 07/12/20 Vale Walls NP [address] [place] [address] PCP - General Geriatrics 07/13/20 Chastity Cortes MD [address] [place] [address] PCP - Backup PCP Geriatrics 10/23/20 03/30/21 Vale Walls NP [address] [place] [address] PCP - Backup PCP Geriatrics 10/06/21 documented as of this encounter
--- OUTSIDE RECORDS SUMMARY | 2024-07-05 12:16 | XMS_ITS | Encounter Summary ---
Author Organization [facility] Address [address] [place] [address] Care Team Providers Care Location And Measurement Technician Name Role Phone Alison Francis MD Primary Care Provider Shreyas Orellana MD Primary Care Provider UnavailAshanti Smith MD Primary Care Provider Shreyas Orellana MD Primary Care Provider UnavailAshanti Smith MD Primary Care Provider [phone] Vale Walls AIR REDUCTION EQUIPMENT OPERATOR Primary Care Provider Chastity Cortes MD Unavailable Vale Walls AIR REDUCTION EQUIPMENT OPERATOR Unavailable [phone] Encounter Details Date Type Department Care Team (Late st Contact Info) Description 11/01/2010 [facility] Only [facility] [address] [place] [address] Alison Francis MD [address] [place] [address] Social History Tobacco Use Types Packs/Day Years [...] of this encounter Results * Due to [place] state law, this organization might not be sharing negative HIV tests. * VITAMIN B12 (CYANOCOBALAMIN), SERUM (05/26/2011 8:47 AM EST) Vitamin B12 (Cobalamins) 922 200 - 1100 pg/mL [facility] Comment:{VITAMIN B12 {[id number]) 05/26/2011 8:47 AM EST 05/26/2011 12:22 PM EST Narrative Resulting Agency Comment [id number] Alison Francis MD LABORATORY Final Result [facility] [address] [place] [address] documented in this encounter Visit Diagnoses Diagnosis Vitamin B12 deficiency- Primary Other B-complex deficiencies documented in this encounter Additional Health Concerns Infection Onset Date Last Indicated Resolved Time COVID-19 Confirmed 07/11/2019 07/11/2019 0 8:12 PM EDT documented as of this encounter Care Teams Location And Measurement Technician Relationship Specialty Start Date End Date Alison Francis MD PCP - General 03/20/10 09/01/15 Shreyas Orellana MD PCP - General Internal Medicine 09/02/15 07/07/19 Ashanti Kumar MD PCP - General Family Medicine 07/08/19 07/09/19 Shreyas Orellana MD PCP - General Internal Medicine 07/10/19 09/06/19 Ashanti Kumar MD PCP - General Family Medicine 09/07/19 07/12/20 Vale Walls NP [address] [place] [address] PCP - General Geriatrics 07/13/20 Chastity Cortes MD [address] [place] [address] PCP - Backup PCP Geriatrics 10/23/20 03/30/21 Vale Walls NP [address] [place] [address] PCP - Backup PCP Geriatrics 10/06/21 documented as of this encounter
--- OUTSIDE RECORDS SUMMARY | 2024-07-05 12:16 | XMS_ITS | Encounter Summary ---
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
--- OUTSIDE RECORDS SUMMARY | 2024-07-05 12:16 | XMS_ITS | Encounter Summary ---
Author Organization [facility] Address [address] [place] [address] Care Team Providers Care Fur Floor Worker Name Role Phone Vale Walls PATIENT SERVICE COORDINATOR Primary Care Provider [phone] Vale Walls PATIENT SERVICE COORDINATOR Unavailable [phone] Reason for Visit * Reason Comments E-prescribing Refill Request Encounter Details Date Type Department Care Team ([facility] st Contact Info) Description 11/29/2023 Refill [facility] [address] [facility] [address] [place] [address] Karli Berry PA [address] 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
--- OUTSIDE RECORDS SUMMARY | 2024-07-05 12:17 | XMS_ITS | Encounter Summary ---
Author Organization [facility] Address [address] [place] [address] Care Team Providers Care Semi Conductor Assembler Name Role Phone Alison Francis MD Primary Care Provider Shreyas Orellana MD Primary Care Provider UnavailAshanti Smith MD Primary Care Provider [phone] Shreyas Orlelana MD Primary Care Provider UnavailAshanti Smith MD Primary Care Provider Vale Walls VICE PRESIDENT MARKETING & DEVELOPMENT Primary Care Provider Chastity Cortes MD Unavailable Vale Walls VICE PRESIDENT MARKETING & DEVELOPMENT Unavailable Encounter Details Date Type Department Care Team (Late st Contact Info) Description 07/07/2015 Orders Only [facility] [address] [place] [address] Alison Francis MD [address] [place] [address] Medications Social History Tobacco Use Types Packs/Day [...] this encounter Procedures * Due to [place] Kiddify law, this organization might not be sharing [...] this encounter Results * Due to [place] Kiddify law, this organization might not be sharing negative HIV tests. * URINALYSIS, DIP ONLY ( SITE STAT ONLY) (07/07/2015 12:22 PM EDT) COLOR (URINE) YELLOW [facility] (CLIA# [id number]) APPEARANCE (URINE) CLEAR [facility] (CLIA# [id number]) SPECIFIC GRAVITY 1.010 1.001 - 1.035 [facility] (CLIA# [id number]) PH (URINE) 7.5 5.0 - 8.0 [facility] (CLIA# [id number]) PROTEIN (URINE) NEGATIVE Neg [facility] (CLIA# [id number]) GLUCOSE (URINE) NEGATIVE Neg [facility] (CLIA# [id number]) Ketones (Urine) NEGATIVE Neg [facility] (CLIA# [id number]) BILIRUBIN (URINE) NEGATIVE Neg [facility] (CLIA# [id number]) BLOOD (URINE) NEGATIVE Neg [facility] (CLIA# [id number]) WBC (URINE) NEGATIVE Neg [facility] (CLIA# [id number]) NITRITE (URINE) NEGATIVE Neg [facility] (CLIA# [id number]) Urine specimen obtained by clean catch procedure (specimen) 07/07/2015 12:22 PM EDT us Aliosn Francis MD LAB SAME DAY RESULT Final Resul t [facility] (CLIA# [id number]) [address] [place] [address] * LIPID PANEL WITH REFLEX TO DIRECT LDL (07/07/2015 11:55 AM EDT) Cholesterol 200 125 - 200 mg/dL [facility] Comment:{CHOLESTEROL, TOTAL {[id number]) HDL Cholesterol 51 > OR = 46 mg/dL [facility] Comment:{HDL CHOLESTEROL {[id number]) Triglyceride 120 <150 mg/dL [facility] Comment:{TRIGLYCERIDES {[id number]) LDL Cholesterol 125 <130 mg/dL (calc) [facility] Comment: {LDL-CHOLESTEROL {[id number]) Desirable range <100 mg/dL for patients with CHD or diabetes and <70 mg/dL for diabetic patients with known heart disease. CHOL/HDL Ratio 3.9 < OR = 5.0 (calc) [facility] Comment:{CHOL/HDLC RATIO {[id number]) Cholesterol Non-HDL 149 mg/dL (calc) [facility] Comment: {NON HDL CHOLESTEROL {[id number]) Target for non-HDL cholesterol is 30 mg/dL higher than LDL cholesterol target. 07/07/2015 11:5 5 AM EDT 07/07/2015 7:19 PM EDT Narrative Resulting Agency Comment [id number] Alison Francis MD LABORATORY Final Result [facility] [address] [place] [address] * (ABNORMAL) BASIC METABOLIC PANEL WITH (GFR) (07/07/2015 11:55 AM EDT) Glucose 93 65 - 99 mg/dL [facility] Comment: {GLUCOSE {[id number]) ? Fasting reference interval Urea Nitrogen Blood (BUN) 23 7 - 25 mg/dL [facility] Comment:{UREA NITROGEN (BUN) {[id number]) Creatinine 0.80 0.60 - 0.93 mg/dL [facility] Comment: {CREATININE {[id number]) For patients >49 years of age, the reference limit for Creatinine is approximately 13% higher for people identified as -Belgian. GFR 71 > OR = 60 mL/min/1 .73m2 [facility] Comment:{eGFR NON-AFR. AMERI CAN {[id number]) GFR () 82 > OR = 60 mL/min/1 .73m2 [facility] Comment:{eGFR AMERIC AN {[id number]) BUN/Creatinine Ratio NOT APPLICABLE 6 - (calc) [facility] Comment:{BUN/CREATININE RATI O {[id number]) Sodium 135 135 - 146 mmol/L [facility] Comment:{SODIUM {[id number]) Potassium 3.1(L) 3.5 - 5.3 mmol/L [facility] Comment:{POTASSIUM {[id number]) Chloride 100 98 - 110 mmol/L [facility] Comment:{CHLORIDE {[id number]) Carbon dioxide 23 19 - 30 mmol/L [facility] Comment:{CARBON DIOXIDE {[id number]) Calcium 9.3 8.6 - 10.4 mg/dL [facility] Comment:{CALCIUM {[id number]) 07/07/2015 11:5 5 AM EDT 07/07/2015 [...] needs for GFR calculation. Resulting Agency Comment [id number] Alison Francis MD LABORATORY Final Result [facility] [address] [place] [address] * CBC INCLUDES DIFFERENTIAL AND PLATELET COUNT (07/07/2015 11:55 AM EDT) WBC 6.1 3.8 - 10.8 Thousand/u L [facility] Comment:{WHITE BLOOD CELL CO UNT {[id number]) RBC 4.91 3.80 - 5.10 Million/uL [facility] Comment:{RED BLOOD CELL COUN T {[id number]) Hemoglobin 14.0 11.7 - 15.5 g/dL [facility] Comment:{HEMOGLOBIN {[id number]) Hematocrit 42.3 35.0 - 45.0 % [facility] Comment:{HEMATOCRIT {[id number]) MCV 86.1 80.0 - 100.0 fL [facility] Comment:{MCV {[id number]) MCH 28.6 27.0 - 33.0 pg [facility] Comment:{MCH {[id number]) MCHC 33.2 32.0 - 36.0 g/dL [facility] Comment:{MCHC {[id number]) RDW 13.6 11.0 - 15.0 % [facility] Comment:{RDW {[id number]) PLT 189 140 - 400 Thousand/u L [facility] Comment:{PLATELET COUNT {[id number]) MPV 8.3 7.5 - 11.5 fL [facility] Comment:{MPV {[id number]) Neutrophils # 2946 1500 - 7800 cells/uL [facility] Comment:{ABSOLUTE NEUTROPHIL S {[id number]) Lymphocytes # 2532 850 - 3900 cells/uL [facility] Comment:{ABSOLUTE LYMPHOCYTE S {[id number]) Monocytes # 464 200 - 950 cells/uL [facility] Comment:{ABSOLUTE MONOCYTES {[id number]) Eosinophils # 110 15 - 500 cells/uL [facility] Comment:{ABSOLUTE EOSINOPHIL S {[id number]) Basophils # 49 0 - 200 cells/uL [facility] Comment:{ABSOLUTE BASOPHILS {[id number]) Neutrophils % 48.3 % [facility] Comment:{NEUTROPHILS {[id number]) Lymphocytes % 41.5 % [facility] Comment:{LYMPHOCYTES {[id number]) Monocytes % 7.6 % [facility] Comment:{MONOCYTES {[id number]) Eosinophils % 1.8 % [facility] Comment:{EOSINOPHILS {[id number]) Basophils % 0.8 % [facility] Comment:{BASOPHILS {[id number]) 07/07/2015 11:5 5 AM EDT 07/07/2015 7:19 PM EDT Narrative Resulting Agency Comment [id number] Alison Francis MD LAB SAME DAY RESULT Final Resul t [facility] [address] [place] [address] * (ABNORMAL) VITAMIN D, 25-HYDROXY, TOTAL, IMMUNOASSAY (07/07/2015 11:55 AM EDT) Vitamin D, 25-OH, Total 26(L) 30 - 100 ng/mL [facility] Comment: {VITAMIN D,25-OH,TOTAL,IA {[id number]) Vitamin D Status ? 25-OH Vitamin D: Deficiency: ?<20 ng/mL Insufficiency: ? 20 - 29 ng/mL Optimal: ? > or = 30 ng/mL For 25-OH Vitamin D testing on patients on D2-supplementation and patients for whom quantitation of D2 and D3 fractions is required, the QuestAssureD(TM) 25-OH VIT D, (D2,D3), LC/MS/MS is recommended: order code 38604 (patients >2yrs). For more information on this test, go to: http://education.ComparaOnline/faq/HDR693 (This link is being provided for informational/educational purposes only.) 07/07/2015 11:5 5 AM EDT 07/07/2015 7:19 PM EDT Narrative Resulting Agency Comment [id number] Alison Francis MD LABORATORY Final Result [facility] [address] [place] [address] documented in this encounter Visit Diagnoses Diagnosis Vitamin D deficiency Chronic Renal Insufficiency Hyperlipidemia; LDL Goal < 130 Other and unspecified hyperlipidemia documented in this encounter Additional Health Concerns Infection Onset Date Last Indicated Resolved Time COVID-19 Confirmed 07/11/2019 07/11/2019 0 8:12 PM EDT documented as of this encounter Care Teams Semi Conductor Assembler Relationship Specialty Start Date End Date Alison Francis MD PCP - General 03/20/10 09/01/15 Shreyas Orellana MD PCP - General Internal Medicine 09/02/15 07/07/19 Ashanti Kumar MD PCP - General Family Medicine 07/08/19 07/09/19 Shreyas Orellana MD PCP - General Internal Medicine 07/10/19 09/06/19 Ashanti Kumar MD PCP - General Family Medicine 09/07/19 07/12/20 Vale Walls NP [address] [place] [address] PCP - General Geriatrics 07/13/20 Chastity Cortes MD [address] [place] [address] PCP - Backup PCP Geriatrics 10/23/20 03/30/21 Vale Walls NP [address] [place] [address] PCP - Backup PCP Geriatrics 10/06/21 documented as of this encounter
--- OUTSIDE RECORDS SUMMARY | 2024-07-05 12:17 | XMS_ITS | Encounter Summary ---
Author Organization [facility] Address [address] [place] [address] Care Team Providers Care Skein Straightener Name Role Phone Alison Francis MD Primary Care Provider Alison Francis MD Primary Care Provider Shreyas Orellana MD Primary Care Provider UnavailAshanti Smith MD Primary Care Provider Shreyas Orellana MD Primary Care Provider UnavailAshanti Smith MD Primary Care Provider [phone] Vale Walls INDUSTRIAL MILLWRIGHT Primary Care Provider Chastity Cortes MD Unavailable Vale Walls INDUSTRIAL MILLWRIGHT Unavailable Encounter Details Date Type Department Care Team (Late st Contact Info) Description 02/01/2010 Orders Only May Internal Medicine [address] [place] [id number] Alison Francis MD [address] [place] [address] [phone] Social History Tobacco Use Types Packs/Day Years [...] of this encounter Results * Due to [place] state law, [...] MD LABORATORY Final Result Performing Organization Address [facility]/[place] Co de Phone Number [facility] [address] [place] [address] * T4, FREE THYROXINE (02/15/2010) FT4 1.07 0.8 - 1.8 NG/DL [facility] 02/15/2010 02/15/2010 6:0 8 PM EST us Alison Francis MD LABORATORY Final Result Performing Organization Address City/[facility]/ZIP Co de Phone Number [facility] [address] [place] [address] * TSH (THYROTROPIN) (02/15/2010) TSH, THYROTROPIN 1.730 0.40 - 4.50 UIU/ML [facility] 02/15/2010 02/15/2010 6:0 8 PM EST us Alison Francis MD LABORATORY Final Result Performing Organization Address [facility]/[place] Co de Phone Number [facility] [address] [place] [address] * ASPARTATE AMINOTRANSFERASE (AST), SERUM (02/15/2010) AST (SGOT) 22 10 - 35 U/L [facility] 02/15/2010 02/15/2010 6:0 8 PM EST Result [facility] us Alison Francis MD LAB SAME DAY RESULT Final Resul t Performing Organization Address [facility] de Phone Number [facility] [address] [place] [address] * ALANINE AMINOTRANSFERASE (ALT), SERUM (02/15/2010) ALT (SGPT) 20 6 - 40 U/L [facility] 02/15/2010 02/15/2010 6:0 8 PM EST Result [facility] us Alison Francis MD LAB SAME DAY RESULT Final Resul t Performing Organization Address [facility] de Phone Number [facility] [address] [place] [address] * (ABNORMAL) LIPID PANEL + CARDIAC RISK [...] MD LABORATORY Final Result Performing Organization Address [facility]/[place] Co de Phone Number [facility] [address] [place] [address] * (ABNORMAL) BASIC METABOLIC PANEL W/GLOMERULAR FILTRATION RATE (EGFR) (02/15/2010) Pathologist [facility] CALCIUM 8.9 8.6 - 10.2 MG/DL [facility] [...] Co de Phone Number [facility] [address] [place] [address] * CBC 5 PART DIFF (02/15/2010) Pathologist [facility] WHITE BLOOD COUNT 5.8 3.8 - 10.8 [...] RESULT Final Resul t Performing Organization Address City/State/[place] Co de Phone Number [facility] [address] [place] [address] documented in this encounter Visit Diagnoses Diagnosis [...] documented as of this encounter Care Teams Skein Straightener Relationship Specialty Start Date End Date Alison [...] Family Medicine 09/07/19 07/12/20 Vale Walls NP [address] [place] [id number] PCP - General Geriatrics 07/13/20 Chastity Cortes MD [address] [place] [id number] PCP - Backup PCP Geriatrics 10/23/20 03/30/21 Vale Walls NP [address] [place] [id number] PCP - Backup PCP Geriatrics 10/06/21 documented as of this encounter
--- OUTSIDE RECORDS SUMMARY | 2024-07-05 12:17 | XMS_ITS | Encounter Summary ---
Author Organization [facility] Address [address] [place] [address] Care Team Providers Care Log Haul Operator Name Role Phone Alison Francis MD Primary Care Provider Alison Francis MD Primary Care Provider Shreyas Orellana MD Primary Care Provider UnavailAshanti Smith MD Primary Care Provider [phone] Shreyas Orellana MD Primary Care Provider UnavailAshanti Smith MD Primary Care Provider Vale Walls PAPER TWISTER TENDER Primary Care Provider Chastity Cortes MD Unavailable [phone] Vale Walls PAPER TWISTER TENDER Unavailable Encounter Details Date Type Department Care Team (Late st Contact Info) Description 08/15/2008 Orders Only May Internal Medicine [address] [place] [phone] Alison Francis MD [address] [place] [address] [phone] Social History Tobacco Use Types Packs/Day Years [...] this encounter Procedures * Due to [place] law, this organization might not be sharing [...] this encounter Results * Due to [place] law, this organization might not be sharing negative HIV tests. * MAGNESIUM (08/15/2008) MAGNESIUM 2.0 1.5 - 2.5 MG/DL 08/15/2008 08/15/2008 5:5 3 PM EDT Alison Francis MD LABORATORY Final Result * VITAMIN B12 (08/15/2008) VITB12 457 200 - 1100 PG/ML 08/15/2008 08/15/2008 5:5 3 PM EDT Result [facility] us Alison Francis MD LABORATORY Final Result [...] 08/15/2008 5:5 3 PM EDT Result [facility] us Alison Francis MD LABORATORY Final Result * T4, FREE THYROXINE (08/15/2008) FT4 1.2 0.8 - 1.8 NG/DL 08/15/2008 08/15/2008 5:5 3 PM EDT Result [facility] us Alison Francis MD LABORATORY Final Result * TSH (THYROTROPIN) (08/15/2008) TSH, THYROTROPIN 2.63 0.40 - 4.50 UIU/ML 08/15/2008 08/15/2008 5:5 3 PM EDT Result [facility] us Alison Francis MD LABORATORY Final Result * ALANINE AMINOTRANSFERASE (ALT), SERUM (08/15/2008) ALT (SGPT) 23 6 - 40 U/L 08/15/2008 08/15/2008 5:5 3 PM EDT Result [facility] us Alison Francis MD LAB SAME DAY RESULT Final Resul t * ASPARTATE AMINOTRANSFERASE (AST), SERUM (08/15/2008) AST (SGOT) 22 10 - 35 U/L 08/15/2008 08/15/2008 5: 53 PM EDT us Alison Francis MD LAB [...] (ABNORMAL) CARDIAC RISK/LIPID PROFILE I (08/15/2008) Pathologist [facility] CHOLESTEROL, TOTAL 238(H) 125 - 200 MG/DL [...] documented as of this encounter Care Teams Log Haul Operator Relationship Specialty Start Date End Date Alison Francis MD PCP - General 03/20/10 09/01/15 Alison Frnacis MD PCP - General 07/02/07 03/19/10 Shreyas Orellana MD PCP - General Internal Medicine 09/02/15 07/07/19 Ashanti Kumar MD PCP - General Family Medicine 07/08/19 07/09/19 Shreyas Orellana MD PCP - General Internal Medicine 07/10/19 09/06/19 Ashanti Kumar MD PCP - General Family Medicine 09/07/19 07/12/20 Vale Walls NP [address] [place] [id number] PCP - General Geriatrics 07/13/20 Chastity Cortes MD [address] [place] [id number] PCP - Backup PCP Geriatrics 10/23/20 03/30/21 Vale Walls NP [address] [place] [id number] PCP - Backup PCP Geriatrics 10/06/21 documented as of this encounter
--- OUTSIDE RECORDS SUMMARY | 2024-07-05 12:17 | XMS_ITS | Clinical Summary ---
Author Organization [facility] Address [address] [place] [address] Care Team Providers Care Sales/Marketing Name Role Phone Vale Walls Primary Care Provider [phone] Allergies Active Allergy Reactions Criticality Noted Date Comments Lisinopril Cough 07/19/2011 Medications verapamil (CALAN) 80 mg tablet Take 80 mg by mouth daily. 11 07/07/2017 Active acetaminophen (TYLENOL) 500 mg tablet Take 500 mg by mouth every 6 hours as needed for pain. Active naproxen (NAPROSYN) 500 mg tablet Take 500 mg by mouth 2 times a day with meals. Active losartan (COZAAR) 50 mg tablet Take 50 mg by mouth once a day. Active QUEtiapine (SEROquel) 50 mg tablet Take 50 mg by mouth nightly. Active oxyCODONE IR (ROXICODONE) 5 mg tablet Take 5 mg by mouth daily as needed. Active pramipexole (MIRAPEX) 0.25 mg tablet Take 0.25 mg by mouth nightly. Active donepeziL (ARICEPT) 5 mg tablet Take 5 mg by mouth nightly. Active cyanocobalamin (vitamin B-12) 1,000 mcg tablet Take 1,000 mcg by mouth once a day. Active multivitamin/ir on/folic acid (CENTRUM ORAL) Take 1 capsule by mouth daily. Active Active Problems Problem Noted Date Diagnosed [...] Encounters Date Type Department Care Team Description 05/22/2024 Results Follow-Up [facility] [address] [place] [address] [id number] Smoke Chaser: Yesica Sneed PA 05/17/2024 11:00 AM EST Office Visit [facility] [address] [place] [phone] Smoke Chaser: Marcia Orlando MD Mullaney, Christine, PA Age-related osteoporosis with current pathological fracture, sequela (Primary Dx) 04/22/2024 8:07 AM EST - 04/22/2024 11:59 PM EST Hospital Encounter [facility] XRay [address] [place] [address] [phone] Piero Hilton MD Pain Discharge Disposition: Home or Self Care () 04/22/2024 8:07 AM EST - 04/22/2024 11:59 PM EST Hospital Encounter [facility] [address] [place] [address] [phone] Piero Hilton MD Radiculopathy of lumbar region (Primary Dx) Discharge Disposition: Home or Self Care () 04/18/2024 5:23 PM EST - 04/19/2024 3:15 PM EST Emergency [facility] Emergency Department [address] [place] [phone] Fermin Hawkins MD Sheridan, Andrew R., MD Jiang, Zhenyang, MD Back pain at L4-L5 level (Primary Dx); Urinary tract infection without hematuria, site unspecified; Acute left-sided low back pain with left-sided sciatica; Impaired mobility Discharge Disposition: Home with Services (06) 04/18/2024 Telephone [facility] Sp[facility] B [address] [place] [phone] Holli Fenton PA 04/12/2024 Orders Only [facility] [address] [place] [address] [phone] Holli Fenton PA Radiculopathy of lumbar region (Primary Dx) 04/12/2024 Telephone [facility] [address] [place] [phone] Telephone Intake, Staff PAC Appt Request - Established [place] 04/11/2024 1:00 PM EST Telehealth [facility] [address] [place] [address] [phone] Holli Fenton PA Radiculopathy of lumbar region (Primary Dx); Spinal stenosis of lumbar region with neurogenic claudication; Sacral insufficiency fracture with routine healing from Last 3 Months Social History Tobacco Use Types Packs/Day Years Used Date Smoking Tobacco: Never Passive Smoke Exposure: Past Smokeless Tobacco: Never Tobacco Cessation:Counseling Given: Not Answered Alcohol Use Standard Drinks/Week Comments No 0 [...] Sign Reading Time Taken Comments Blood Pressure 158/84 05/17/2024 10:44 AM EST Pulse 82 05/17/2024 10:44 AM EST Temperature 36.4 ??C (97.5 ??F) 05/17/2024 10:[address] Respiratory Rate 18 04/19/2024 11:24 AM EST Oxygen Saturation 97% 04/22/2024 9:00 AM EST Inhaled Oxygen Concentration - - Weight 70.3 kg (155 lb) 05/17/2024 10:44 AM EST Height 162.6 cm (5' 4 ) 03/09/2024 11:03 AM EST Body Mass Index 26.61 03/09/2024 11:03 AM EST Plan of Treatment Upcoming Encounters Date Type Department Care Team (Late st Contact Info) Description 07/11/2024 3:20 PM EDT Follow-Up [facility] [address] [place] [address] [phone] Piero Hilton MD [address] [place] [phone] 08/23/2024 2:30 PM EDT Follow-Up [facility] [address] [place] [address] [phone] Smoke Chaser: Yesica Sneed PA [address] [place] [address] [phone] Health Maintenance Due Date Last Done Comments Zoster Vaccines (1 of 2) 1988 DTaP,Tdap,and Td Vaccines (1 - Tdap) 10/05/2016 10/04/2016, 06/07/2005, 07/28/1993 Alcohol/Substance Use Screening 03/20/2024 Depression Screening and Follow-Up 03/20/2024 Health Care Proxy Review 03/20/2024 Social Drivers of Health Annual Screening 03/20/2024 COVID-19 Vaccine ( season) 2024 01/28/2024, 12/24/2022, 01/10/2022, Additional history exists Basic Metabolic Panel 05/17/2025 05/17/2024 , 04/18/2024, 03/09/2024, Additional history exists Pneumococcal Vaccine: 50+ Years Completed 12/24/2022, 06/11/2014, 06/07/2005 Influenza Vaccine Completed 01/28/2024, , 01/03/2022, Additional history exists RSV Vaccine (60+ years old and patients) Completed 01/28/2024 Osteoporosis Screening Completed 03/22/2024 Hepatitis B Vaccines Aged Out No long er eligible based on patient's age to complete this topic Procedures * Due to [place] state law, this organization might not be sharing negative HIV tests. Procedure Name Priority Date/Time Associated Diagnosis Comments COMPREHENSIVE METABOLIC PANEL Routine 05/17/2024 12:35 PM EST Age-related osteoporosis with current pathological fracture, sequela PTH, INTACT (WITHOUT CALCIUM) Routine 05/17/2024 12:35 PM EST Age-related osteoporosis with current pathological fracture, sequela PROTEIN ELECTROPHORESIS W/REFLEX TO IMMUNOFIXATION, SERUM Routine 05/17/2024 12:35 PM EST Age-related osteoporosis with current pathological fracture, sequela MAGNESIUM Routine 05/17/2024 12:35 PM EST Age-related osteoporosis with current pathological fracture, sequela PHOSPHORUS Routine 05/17/2024 12:35 PM EST Age-related osteoporosis with current pathological fracture, sequela TSH REFLEX FREE T4 Routine 05/17/2024 12 :35 PM EST Age-related osteoporosis with current pathological fracture, sequela FL C-ARM INJECTION NON-REPORTABLE Routine 04/22/2024 12:19 PM EST Pain CO NJX DX/THER SBST INTRLMNR LMBR/SAC W/IMG GDN [...] AUTO DIFFERENTIAL STAT 04/18/2024 12:18 PM EST from Last 3 Months Results * Due to [place] state law, this organization might not be sharing negative HIV tests. * (ABNORMAL) Protein Electrophoresis w/Reflex to Immunofixation, Serum (05/17/2024 12:35 PM EST) Protein, Total 6.8 6.1 - 8.1 g/dL 05/19/2024 9:42 PM EST [facility] Albumin 3.8 3.8 - 4.8 g/dL 05/19/2024 9:42 PM EST [employer] Alpha 1 Globulin 0.4(H) 0.2 - 0.3 g/dL 05/19/2024 9:42 PM EST [facility] Alpha 2 Globulin 0.8 0.5 - 0.9 g/dL 05/19/2024 9:42 PM EST [facility] Beta 1 Globulin 0.4 0.4 - 0.6 g/dL 05/19/2024 9:42 PM EST [employer] Beta 2 Globulin 0.4 0.2 - 0.5 g/dL 05/19/2024 9:42 PM EST [employer] Gamma Globulin 0.9 0.8 - 1.7 g/dL 05/19/2024 9:42 PM EST [facility] Interpretation See Comments 05/19/2024 9:42 PM EST [facility] Comment: Alpha-1 globulin increase noted. Blood Structure of peripheral vein / Unknown Venipuncture / Unknown 05/17/2024 12:35 PM EST 05/17/2024 12:43 PM EST Moe Delo [facility] - 05/19/2024 9:42 PM EST [facility] Received Date: Yesica CLAUDIO LAB BLOOD ORDERABLES Final Result [facility] [address] [facility] [address], [place] [address], [place] [phone] [employer] [address] [facility] [address], [place] [address], [place] [phone] * TSH Reflex Free T4 (05/17/2024 12:35 PM EST) TSH 1.680 0.280 - 3.890 uIU/mL 05/17/2024 1:28 PM EST [facility] Comment: Females: 1st trimester ? 0.150-4.000 ??IU/mL 2nd trimester ?? 0.310-4.170 ?IU/mL 3rd trimester ?0.380-4.150 ?IU/mL Blood Structure of peripheral vein / Unknown Venipuncture / Unknown 05/17/2024 12:35 PM EST 05/17/2024 12:43 PM EST Yesica CLAUDIO LAB BLOOD ORDERABLES Final Result Performing Organization Address City/[facility] Co de Phone Number [facility] [address] [place] [id number] * Phosphorus (05/17/2024 12:35 PM EST) Phosphorus 3.1 2.5 - 4.5 mg/dL 05/17/2024 1:28 PM EST [facility] Blood Structure of peripheral vein / Unknown Venipuncture / Unknown 05/17/2024 12:35 PM EST 05/17/2024 12:43 PM EST Yesica CLAUDIO LAB BLOOD ORDERABLES Final Result [facility] [address] [place] [address], [place] * PTH, Intact (without Calcium) (05/17/2024 12:35 PM EST) Parathyroid Hormone, Intact 19 16 - 77 pg/mL 05/18/2024 9:14 AM EST [facility] Comment: Interpretive Guide ?Intact PTH ? Calcium ? ------- Normal Parathyroid ?Normal ? Normal Hypoparathyroidism ?Low or Low Normal ?Low Hyperparathyroidism ?? Primary ?Normal or High ? High ?? Secondary ?High ? Normal or Low ?? Tertiary ? High ? High Non-Parathyroid ?? Hypercalcemia ?Low or Low Normal ?High Blood Structure of peripheral vein / Unknown Venipuncture / Unknown 05/17/2024 12:35 PM EST 05/17/2024 12:43 PM EST Narrative [facility] - 05/18/2024 9:14 AM EST [facility] Received Date:[id number] Yesica CLAUDIO LAB BLOOD ORDERABLES Final Result [facility] [address] [facility] [address], [place] [address], [place] [phone] [employer] [facility] [address] [facility] [address], [place] [address], [place] [phone] * Magnesium (05/17/2024 12:35 PM EST) MG 2.0 1.6 - 2.4 mg/dL 05/17/2024 1:28 PM EST [facility] Blood Structure of peripheral vein / Unknown Venipuncture / Unknown 05/17/2024 12:35 PM EST 05/17/2024 12:43 PM EST us Yesica CLAUDIO LAB BLOOD ORDERABLES Final Result [facility] [address] [place] [address], [place] * (ABNORMAL) Comprehensive metabolic panel (05/17/2024 12:35 PM EST) Only the most recent of2 resultswithin the time period is included. Pathologist [facility] NA 137 135 - 145 mmol/L 05/17/2024 1:28 PM EST [facility] K 4.0 3.5 - 5.3 mmol/L 05/17/2024 1:28 PM EST [facility] Cl 103 98 - 107 mmol/L 05/17/2024 1:28 PM EST [facility] CO2 23 22 - 32 mmol/L 05/17/2024 1:28 PM EST [facility] Anion Gap 11 5 - 15 05/17/2024 1:28 PM EST [facility] Glucose 95 65 - 99 mg/dL 05/17/2024 1:28 PM EST [facility] Creatinine 0.88 0.50 - 1.20 mg/dL 05/17/2024 1:28 PM EST [facility] Calcium 9.6 8.6 - 10.5 mg/dL 05/17/2024 1:28 PM EST [facility] Total Protein 7.3 6.0 - 8.0 g/dL 05/17/2024 1:28 PM EST [facility] Albumin 3.9 3.5 - 5.2 g/dL 05/17/2024 1:28 PM EST [facility] Bilirubin, Total 0.4 0.2 - 1.2 mg/dL 05/17/2024 1:28 PM [facility] Alkaline Phosphatase 135(H) 35 - 129 U/L 05/17/2024 1:28 PM EST [facility] AST 24 10 - 40 U/L 05/17/2024 1:28 PM [facility] ALT 10 10 - 40 U/L 05/17/2024 1:28 PM EST [facility] BUN 24(H) 7 - 23 mg/dL 05/17/2024 1:28 PM [facility] eGFR 64 >=60 mL/min/1. 73m2 05/17/2024 1:28 PM [facility] Comment:The estimated [...] in Diagnosing Kidney Disease . Globulin, Total 3.4 2.1 - 4.2 g/dL 05/17/2024 1:28 PM [facility] A/G Ratio 1.1(L) 1.5 - 3.0 05/17/2024 1:28 PM [facility] Blood Structure of peripheral vein / Unknown Venipuncture / Unknown 05/17/2024 12:35 PM EST 05/17/2024 12:43 PM EST Yesica CLAUDIO LAB BLOOD ORDERABLES Final Result [facility] [address] [place] [address], [place] * [place] C-Arm Injection Spine NONREPORTABLE (04/22/2024 12:19 PM EST) Narrative IMAGING - 04/22/2024 12:19 PM EST This procedure does not contain a result. Please see the surgeon's note for official report. us Piero Hilton MD IMPaul FLUOROSCOPY PROCEDURES Final Result Performing Organization Address City/[facility]/ZIP Co de Phone Number IMAGING * CO NJX DX/THER SBST INTRLMNR LMBR/SAC W/IMG GDN [...] Patient's understanding of procedure matches consent: Yes [place] Protocol: ? Procedure consent matches procedure scheduled: [...] outpatient to the ambulatory injection suite at [facility]. ? Vital signs were monitored before and [...] obtain the completed interpretation. ? Workstation ID: [id number] Narrative 04/19/2024 5:26 AM EST COMPARISON: CT lumbar spine 04/18/2024. ??Lumbar spine MRI 04/03/2024. FINDINGS AND Resulting Agency Comment [id number] Procedure Note Clem Holguin DO - 04/19/2024 COMPARISON: CT lumbar spine 04/18/2024. Lumbar spine MRI 04/03/2024. FINDINGS AND IMPRESSION: The bones are diffusely demineralized. Unchanged dextroconvex scoliosisof the lumbar spine and advanced multilevel degenerative changes ascharacterized on prior MRI. Unchanged degenerative grade 1anterolisthesis at L4-L5. Chronic compression deformity of the [id number] body. Unchanged subacute sacral insufficiency fractures. If this radiology report contains a blank impression section, it is anincomplete radiology report. Please contact the interpreting radiologistor applicable radiology division as soon as possible to obtain thecompleted interpretation. Workstation ID: [id number] us Elvis Tran MD IMG XR PROCEDURES [...] obtain the completed interpretation. ? Workstation ID: [id number] Up-to-date CT equipment and radiation dose reduction techniques were employed. CTDIvol: 14.7 mGy. DLP: 672 mGy-cm. ??The following accession numbers are related to this dose report [id number]: [id number] Up-to-date CT equipment and radiation dose reduction techniques were employed. CTDIvol: 14.7 mGy. DLP: 672 mGy-cm. ??The following accession numbers are related to this dose report [id number]: [id number] Narrative 04/18/2024 10:15 PM EST COMPARISON: 03/09/2024. [...] described sacral insufficiency fractures. Resulting Agency Comment [id number] Procedure Note Harpreet Estrada MD - 04/18/2024 [...] possible to obtain thecompleted interpretation. Workstation ID: [id number] Up-to-date CT equipment and radiation dose reduction techniques wereemployed. CTDIvol: 14.7 mGy. DLP: 672 mGy-cm. The following accessionnumbers are related to this dose report [id number]: [id number] Up-to-date CT equipment and radiation dose reduction techniques wereemployed. CTDIvol: 14.7 mGy. DLP: 672 mGy-cm. The following accessionnumbers are related to this dose report [id number]: [id number] us Fermin Hawkins MD [facility] PROCEDURES Final Result * CT Abd [...] obtain the completed interpretation. ? Workstation ID: [id number] Up-to-date CT equipment and radiation dose reduction techniques were employed. CTDIvol: 14.7 mGy. DLP: 672 mGy-cm. ??The following accession numbers are related to this dose report [id number]: [id number] Up-to-date CT equipment and radiation dose reduction techniques were employed. CTDIvol: 14.7 mGy. DLP: 672 mGy-cm. ??The following accession numbers are related to this dose report [id number]: [id number] Narrative 04/18/2024 10:15 PM EST COMPARISON: 03/09/2024. [...] described sacral insufficiency fractures. Resulting Agency Comment [id number] Procedure Note Harpreet Estrada MD - 04/18/2024 [...] possible to obtain thecompleted interpretation. Workstation ID: [id number] Up-to-date CT equipment and radiation dose reduction techniques wereemployed. CTDIvol: 14.7 mGy. DLP: 672 mGy-cm. The following accessionnumbers are related to this dose report [id number]: [id number] Up-to-date CT equipment and radiation dose reduction techniques wereemployed. CTDIvol: 14.7 mGy. DLP: 672 mGy-cm. The following accessionnumbers are related to this dose report [id number]: [id number] us Fermin Hawkins MD IMG CT PROCEDURES Final Result * [place] Top, Urine (04/18/2024 6:43 PM EST) Extra Tube Hold for add-ons. 04/18/2024 11:05 PM EST [facility] Comment:Auto resulted. Urine Urine specimen collection, clean catch / Unknown Non-Blood Collection / Unknown 04/18/2024 6:43 PM EST 04/18/2024 6:43 PM EST us Fermin Hawkins MD LAB URINE ORDERABLES Final Resul t [facility] [address] [place] [address], [place] * (ABNORMAL) Urinalysis W/Reflex to Microscopic & Culture (04/18/2024 6:43 PM EST) Color, Urine Yellow Colorless, Light Yellow, Yellow, Dark Yellow 04/18/2024 7:03 PM EST [facility] Clarity, Urine Slightly Cloudy(A) Clear 04/18/2024 7:03 PM EST [facility] Specific Flanagan, Urine 1.025 1.005 - 1.030 04/18/2024 7:03 PM [facility] pH, Urine 5.0 4.6 - 8.0 04/18/2024 7:03 PM [facility] Protein, Urine Negative Negative 04/18/2024 7:03 PM [facility] Glucose, Urine Negative Negative 04/18/2024 7:03 PM EST [facility] Ketones, Urine Negative Negative 04/18/2024 7:03 PM EST [facility] Bilirubin, Urine Negative Negative 04/18/2024 7:03 PM EST [facility] Blood, Urine Negative Negative 04/18/2024 7:03 PM EST [facility] Nitrite, Urine Negative Negative 04/18/2024 7:03 PM EST [facility] Urobilinogen, Urine Positive(A) Normal 04/18/2024 7:03 PM [facility] Leukocyte Esterase, Urine 1+(A) Negative 04/18/2024 7:03 PM [facility] WBC, Urine 10(H) 0 - 2 /HPF 04/18/2024 7:03 PM [facility] RBC, Urine 2 0 - 2 /HPF 04/18/2024 7:03 PM [facility] Hyaline Casts, Urine 2 0 - 2 /LPF 04/18/2024 7:03 PM EST [facility] Squamous Epithelial Cells, Urine 4 /HPF 04/18/2024 7:03 PM EST [facility] Bacteria, Urine Rare(A) None /HPF /HPF 04/18/2024 7:03 PM EST [facility] Mucus, Urine Rare /LPF 04/18/2024 7:03 PM EST [facility] Urine Urine specimen collection, clean catch / Unknown Non-Blood Collection / Unknown 04/18/2024 6:43 PM EST 04/18/2024 6:43 PM EST Fermin Hawkins MD LAB URINE ORDERABLES Final Resul t [facility] [address] [place] [address], [place] * Urine Culture, Routine (04/18/2024 6:43 PM EST) Culture Mixed genital carmelita isolated. These superficial bacteria are not indicative of a urinary tract infection. No further organism identification is warranted on this specimen. 04/20/2024 1:03 AM EST [facility] Urine Urine specimen collection, clean catch / Unknown Non-Blood Collection / Unknown 04/18/2024 6:43 PM EST 04/18/2024 7:02 PM EST Narrative [facility] - 04/20/2024 1:03 AM EST [facility] Received Date: MICRO NUMBER: [id number] SPECIMEN QUALITY: Adequate SOURCE: URINE CLEAN CATCH STATUS: FINAL If clinically indicated, recollect clean-catch, mid-stream urine and transfer immediately to Urine Culture Transport Tube. us Elvis Tran MD LAB MICROBIOLOGY - GENERAL ORDERABLES Final Result [address], [place] [address], [place] [phone] [employer] [facility] [address] [facility] 3rd [address], [place] [address], * (ABNORMAL) CBC Auto Differential (04/18/2024 12:18 PM EST) WBC 9.0 3.8 - 10.8 10*3/uL 04/18/2024 12:40 PM EST [facility] RBC 4.45 3.80 - 5.10 10*6/uL 04/18/2024 12:40 PM EST [facility] Hemoglobin 12.7 11.7 - 15.5 g/dL 04/18/2024 12:40 PM EST [facility] Hematocrit 38.4 35.0 - 45.0 % 04/18/2024 12:40 PM EST [facility] MCV 86.3 80.0 - 100.0 fL 04/18/2024 12:40 PM EST [facility] MCH 28.5 27.0 - 33.0 pg 04/18/2024 12:40 PM EST [facility] MCHC 33.1 32.0 - 36.0 g/dL 04/18/2024 12:40 PM EST [facility] RDW 14.0 11.0 - 15.0 % 04/18/2024 12:40 PM EST [facility] Platelets 219 140 - 400 10*3/uL 04/18/2024 12:40 PM EST [facility] MPV 8.9 7.5 - 12.5 fL 04/18/2024 12:40 PM EST [facility] Neutrophil % 69.1 % 04/18/2024 12:40 PM EST [facility] Immature Grans % 0.4 0.0 - 0.9 % 04/18/2024 12:40 PM EST [facility] Lymphocyte % 18.8 % 04/18/2024 12:40 PM EST [facility] Monocyte % 8.3 % 04/18/2024 12:40 PM EST [facility] Eosinophil % 2.8 % 04/18/2024 12:40 PM EST [facility] Basophil % 0.6 % 04/18/2024 12:40 PM EST [facility] Neutrophil # 6.21 1.50 - 7.80 10*3/uL 04/18/2024 12:40 PM EST [facility] Immature Grans # 0.04(H) <=0.03 10*3/uL 04/18/2024 12:40 PM EST [facility] Lymphocyte # 1.70 0.85 - 3.90 10*3/uL 04/18/2024 12:40 PM EST [facility] Monocyte # 0.80 0.20 - 0.95 10*3/uL 04/18/2024 12:40 PM EST [facility] Eosinophil # 0.30 0.02 - 0.50 10*3/uL 04/18/2024 12:40 PM EST [facility] Basophil # 0.10 0.00 - 0.20 10*3/uL 04/18/2024 12:40 PM EST [facility] nRBC % 0.0 /100 WBCs 04/18/2024 12:40 PM EST [facility] nRBC # <0.01 <0.01 10*3/uL 04/18/2024 12:40 PM EST [facility] Blood Structure of peripheral vein / Unknown Venipuncture / Unknown 04/18/2024 12:18 PM EST 04/18/2024 12:33 PM EST us Fermin Hawkins MD LAB BLOOD ORDERABLES Final Resul t [facility] [address] [place] [address], [place] from Last 3 Months Insurance [facility] HSNO/FREE CARE Advance Directives * Full Code (Latest Code Status on File) Date Activated Date Inactivated Comments 04/19/2024 3:13 AM 04/19/2024 5:15 PM * Presumed Full Code Date Activated Date Inactivated Comments 04/19/2024 12:08 AM 04/19/2024 3:13 AM * Presumed Full Code Date Activated Date Inactivated Comments 07/18/2017 1:44 AM 07/18/2017 6:19 PM Care Teams Sales/Marketing Relationship Specialty Start Date End Date Vale Walls [address] [place] [phone] PCP - General Nurse Practitioner 03/08/24
--- OUTSIDE RECORDS SUMMARY | 2024-07-05 12:17 | XMS_ITS | Encounter Summary ---
Author Organization [facility] Address [address] [place] [address] Care Team Providers Care Cigar Inspector Name Role Phone Shreyas Orellana MD Primary Care Provider UnavailAshanti Smith MD Primary Care Provider Shreyas Orellana MD Primary Care Provider UnavailAshanti Smith MD Primary Care Provider Vale Walls NP Primary Care Provider Chastity Cortes MD Unavailable [phone] Vale Walls NP Unavailable Encounter Details Date Type Department Care Team (Late st Contact Info) Description 08/30/2016 Orders Only July Internal Medicine [address] [place] [id number] Shreyas Orellana MD Social History Tobacco Use [...] this encounter Progress Notes * Shreyas Orellana - 09/04/2016 1:36 PM EDT Call pt k is 3. Adv [id number] qd x one week book basic in [...] this encounter Procedures * Due to [place] [employer] law, this organization might not be sharing [...] this encounter Results * Due to [place] [employer] law, this organization might not be sharing negative HIV tests. * (ABNORMAL) VITAMIN D, 25-HYDROXY, TOTAL, IMMUNOASSAY (08/30/2016 10:41 AM EDT) Vitamin D, 25-OH, Total 16(L) 30 - 100 ng/mL [facility] Comment: Vitamin D Status ? 25-OH Vitamin D: Deficiency: ?<20 ng/mL Insufficiency: ? 20 - 29 ng/mL Optimal: ? > or = 30 ng/mL For 25-OH Vitamin D testing on patients on D2-supplementation and patients for whom quantitation of D2 and D3 fractions is required, the QuestAssureD(TM) 25-OH VIT D, (D2,D3), LC/MS/MS is recommended: order code 86815 (patients >2yrs). For more information on this test, go to: http://education.[employer]/faq/ZZR741 (This link is being provided for informational/educational purposes only.) 08/30/2016 10:4 1 AM EDT 08/30/2016 2:54 PM EDT Narrative Resulting Agency Comment [id number] Shreyas Orellana MD LABORATORY Final Result [facility] [address] [place] [address] * (ABNORMAL) BASIC METABOLIC PANEL WITH (GFR) (08/30/2016 10:41 AM EDT) [facility] Glucose 111(H) 65 - 99 mg/dL [facility] [...] higher for people identified as -Q[place]. GFR 41(L) > OR = 60 mL/min/1. [...] needs for GFR calculation. Resulting Agency Comment [id number] Shreyas Orellana MD LABORATORY Final Result Performing Organization Address [facility] de Phone Number [facility] [address] [place] [address] * (ABNORMAL) LIPID PANEL WITH REFLEX TO [...] 2:54 PM EDT Narrative Resulting Agency Comment [id number] Shreyas Orellana MD LABORATORY Final Result Performing Organization Address [facility] Co de Phone Number [facility] [address] [place] [address] documented in this encounter Visit Diagnoses Diagnosis Lipids blood increased Other and unspecified hyperlipidemia Encounter for long-term (current) use of high-risk medication Encounter for long-term (current) use of other medications Vitamin D deficiency documented in this encounter Additional Health Concerns Infection Onset Date Last Indicated Resolved Time COVID-19 Confirmed 07/11/2019 07/11/2019 0 8:12 PM EDT documented as of this encounter Care Teams Cigar Inspector Relationship Specialty Start Date End Date Shreyas Orellana MD PCP - General Internal Medicine 09/02/15 07/07/19 Asahnti uKmar MD PCP - General Family Medicine 07/08/19 07/09/19 Shreyas Orellana MD PCP - General Internal Medicine 07/10/19 09/06/19 Ashanti Kumar MD PCP - General Family Medicine 09/07/19 07/12/20 Vale Walls NP [address] [place] [address] PCP - General Geriatrics 07/13/20 Chastity Cortes MD [address] [place] [id number] PCP - Backup PCP Geriatrics 10/23/20 03/30/21 Vale Walls NP [address] [place] [address] PCP - Backup PCP Geriatrics 10/06/21 documented as of this encounter
--- OUTSIDE RECORDS SUMMARY | 2024-07-05 12:17 | XMS_ITS | Referral Summary ---
Author Organization [facility] Address [address] [place] [address] Care Team Providers Care Brick Veneer Maker Name Role Phone Vale Walls Primary Care Provider [phone] Encounters Date Type Department Care Team Description 05/22/2024 Results Follow-Up [facility] [address] [place] [address] Belt Maker Helper: Yesica Sneed PA 05/17/2024 11:00 AM EST Office Visit [facility] [address] [place] [phone] Belt Maker Helper: Marcia Orlando MD Mullaney, Christine, PA Age-related osteoporosis with current pathological fracture, sequela (Primary Dx) 04/22/2024 8:07 AM EST - 04/22/2024 11:59 PM EST Hospital Encounter [facility] [address] [place] [phone] Piero Hilton MD Pain Discharge Disposition: Home or Self Care () 04/22/2024 8:07 AM EST - 04/22/2024 11:59 PM EST Hospital Encounter [facility] [address] [place] [address] Piero Hilton MD Radiculopathy of lumbar region (Primary Dx) Discharge Disposition: Home or Self Care () 04/18/2024 5:23 PM EST - 04/19/2024 3:15 PM EST Emergency [facility] Emergency Department [address] [place] [phone] Fermin Hawkins MD Sheridan, Andrew R., MD Jiang, Zhenyang, MD Back pain at L4-L5 level (Primary Dx); Urinary tract infection without hematuria, site unspecified; Acute left-sided low back pain with left-sided sciatica; Impaired mobility Discharge Disposition: Home with Services (06) 04/18/2024 Telephone [facility] [address] [place] [phone] Holli Fenton PA 04/12/2024 Orders Only [facility] [address] [place] [phone] Holli Fenton PA Radiculopathy of lumbar region (Primary Dx) 04/12/2024 Telephone [facility] [address] [place] [phone] Telephone Intake, Staff PAC Appt Request - Established [place] 04/11/2024 1:00 PM RUST Telehealth [facility] [address] [place] [phone] Holli Fenton PA Radiculopathy of lumbar region (Primary Dx); Spinal stenosis of lumbar region with neurogenic claudication; Sacral insufficiency fracture with routine healing from Last 3 Months Allergies Active Allergy Reactions Criticality Noted Date [...] Info) Description 07/11/2024 3:20 PM EDT Follow-Up [facility] A [address] [place] [phone] Piero Hilton MD [address] [place] [phone] 08/23/2024 2:30 PM EDT Follow-Up [facility] [address] [place] [phone] Belt Maker Helper: Yesica Sneed PA [address] [place] [address] [phone] Procedures * Due to [place] state law, this [...] NON-REPORTABLE Routine 04/22/2024 12:19 PM EST Pain [place] NJX DX/THER SBST INTRLMNR LMBR/SAC W/IMG GDN [...] Last 3 Months Results * Due to [place] state law, this organization might not be sharing negative HIV tests. * (ABNORMAL) Protein Electrophoresis w/Reflex to Immunofixation, Serum (05/17/2024 12:35 PM EST) Protein, Total 6.8 6.1 - 8.1 g/dL 05/19/2024 9:42 PM EST [facility] Albumin 3.8 3.8 - 4.8 g/dL 05/19/2024 9:42 PM EST [facility] Alpha 1 Globulin 0.4(H) 0.2 - 0.3 g/dL 05/19/2024 9:42 PM EST [email or web address] Alpha 2 Globulin 0.8 0.5 - 0.9 g/dL 05/19/2024 9:42 PM EST [facility] Beta 1 Globulin 0.4 0.4 - 0.6 g/dL 05/19/2024 9:42 PM EST [employer] [facility] Beta 2 Globulin 0.4 0.2 - 0.5 g/dL 05/19/2024 9:42 PM EST [email or web address] Gamma Globulin 0.9 0.8 - 1.7 g/dL 05/19/2024 9:42 PM EST [email or web address] Interpretation See Comments 05/19/2024 9:42 PM EST [facility] Comment: Alpha-1 globulin increase noted. Blood Structure of peripheral vein / Unknown Venipuncture / Unknown 05/17/2024 12:35 PM EST 05/17/2024 12:43 PM EST [employer] - 05/19/2024 9:42 PM EST [facility] Received Date: Yesica CLAUDIO LAB BLOOD ORDERABLES Final Result [facility] [address] [facility] [address], [place] [address], [place] [phone] [email or web address] [address] [facility] 3rd Floor, [place] [address], [place] [phone] * TSH Reflex Free T4 (05/17/2024 12:35 PM EST) TSH 1.680 0.280 - 3.890 uIU/mL 05/17/2024 1:28 PM EST [facility] Comment: Females: 1st trimester ? 0.150-4.000 ??IU/mL 2nd trimester ?? 0.310-4.170 ?IU/mL 3rd trimester ?0.380-4.150 ?IU/mL Blood Structure of peripheral vein / Unknown Venipuncture / Unknown 05/17/2024 12:35 PM EST 05/17/2024 12:43 PM EST Yesica CLAUDIO LAB BLOOD ORDERABLES Final Result Performing Organization Address [facility] de Phone Number [facility] [address] [place] [address], * Phosphorus (05/17/2024 12:35 PM EST) [facility] Phosphorus 3.1 2.5 - 4.5 mg/dL 05/17/2024 1:28 PM EST [facility] Blood Structure of peripheral vein / Unknown Venipuncture / Unknown 05/17/2024 12:35 PM EST 05/17/2024 12:43 PM EST Yesica CLAUDIO LAB BLOOD ORDERABLES Final Result Performing Organization Address [facility] de Phone Number [facility] [address] [place] [address], * PTH, Intact (without Calcium) (05/17/2024 12:35 PM EST) [facility] Parathyroid Hormone, Intact 19 16 - 77 pg/mL 05/18/2024 9:14 AM EST [facility] Comment: Interpretive Guide ?Intact PTH ? Calcium [...] PM EST 05/17/2024 12:43 PM EST Narrative [facility] - 05/18/2024 9:14 AM EST [facility] Received Date: Yesica CLAUDIO LAB BLOOD ORDERABLES Final Result Performing Organization Address City/[facility]/ZIP Co de Phone Number [facility] [address] [facility] [address], [place] [address], [place] [phone] [email or web address] [address] [facility] [address]rd [address], [place] [address], [place] [phone] * Magnesium (05/17/2024 12:35 PM EST) MG 2.0 1.6 - 2.4 mg/dL 05/17/2024 1:28 PM EST [facility] Blood Structure of peripheral vein / Unknown Venipuncture / Unknown 05/17/2024 12:35 PM EST 05/17/2024 12:43 PM EST Yesica CLAUDIO LAB BLOOD ORDERABLES Final Result Performing Organization Address City/[facility]/ZIP Co de Phone Number [facility] [address] [place] [phone], * (ABNORMAL) Comprehensive metabolic panel (05/17/2024 12:35 PM EST) Only the most recent of2 resultswithin the time period is included. NA 137 135 - 145 mmol/L 05/17/2024 1:28 PM EST [facility] K 4.0 3.5 - 5.3 mmol/L 05/17/2024 1:28 PM EST [facility] Cl 103 98 - 107 mmol/L 05/17/2024 1:28 PM [facility] CO2 23 22 - 32 mmol/L 05/17/2024 1:28 PM [facility] Anion Gap 11 5 - 15 05/17/2024 1:28 PM [facility] Glucose 95 65 - 99 mg/dL 05/17/2024 1:28 PM [facility] Creatinine 0.88 0.50 - 1.20 mg/dL 05/17/2024 1:28 PM [facility] Calcium 9.6 8.6 - 10.5 mg/dL 05/17/2024 1:28 PM [facility] Total Protein 7.3 6.0 - 8.0 g/dL 05/17/2024 1:28 PM [facility] Albumin 3.9 3.5 - 5.2 g/dL 05/17/2024 1:28 PM [facility] Bilirubin, Total 0.4 0.2 - 1.2 mg/dL 05/17/2024 1:28 PM [facility] Alkaline Phosphatase 135(H) 35 - 129 U/L 05/17/2024 1:28 PM [facility] AST 24 10 - 40 U/L 05/17/2024 1:28 PM [facility] ALT 10 10 - 40 U/L 05/17/2024 1:28 PM [facility] BUN 24(H) 7 - 23 mg/dL 05/17/2024 1:28 PM [facility] eGFR 64 >=60 mL/min/1. 73m2 05/17/2024 1:28 PM [facility] Comment:The estimated glomer [...] 2.1 - 4.2 g/dL 05/17/2024 1:28 PM EST [facility] A/G Ratio 1.1(L) 1.5 - 3.0 05/17/2024 1:28 PM EST [facility] Blood Structure of peripheral vein / Unknown Venipuncture / Unknown 05/17/2024 12:35 PM EST 05/17/2024 12:43 PM EST Yesica CLAUDIO LAB BLOOD ORDERABLES Final Result Performing Organization Address City/[facility]/ZIP Co de Phone Number [facility] [address] [place] [phone], [place] * FL C-Arm Injection Spine NONREPORTABLE (04/22/2024 12:19 PM EST) Narrative IMAGING - 04/22/2024 12:19 PM EST This procedure does not contain a result. Please see the surgeon's note for official report. us Piero Hilton MD IMG FLUOROSCOPY PROCEDURES Final Result Performing Organization Address City/[facility]/ZIP Co de Phone Number IMAGING * FL NJX DX/THER SBST INTRLMNR LMBR/SAC W/IMG GDN [...] Patient's understanding of procedure matches consent: Yes [place] Protocol: ? Procedure consent matches procedure scheduled: [...] outpatient to the ambulatory injection suite at [facility]. ? Vital signs were monitored [...] lateral fluoroscopic images. ??A radiopaque epidural catheter ([employer]) was advanced through the epidural needle [...] obtain the completed interpretation. ? Workstation ID: [id number] Narrative 04/19/2024 5:26 AM EST COMPARISON: CT lumbar spine 04/18/2024. ??Lumbar spine MRI 04/03/2024. FINDINGS AND Resulting Agency Comment [id number] Procedure Note Clem Holguin, DO - 04/19/2024 COMPARISON: CT lumbar spine 04/18/2024. Lumbar spine MRI 04/03/2024. FINDINGS AND IMPRESSION: The bones are diffusely demineralized. Unchanged dextroconvex scoliosisof the lumbar spine and advanced multilevel degenerative changes ascharacterized on prior MRI. Unchanged degenerative grade 1anterolisthesis at L4-L5. Chronic compression deformity of the B1rifwvdsvu body. Unchanged subacute sacral insufficiency fractures. If this radiology report contains a blank impression section, it is anincomplete radiology report. Please contact the interpreting radiologistor applicable radiology division as soon as possible to obtain thecompleted interpretation. Workstation ID: [id number] us Elvis Tran MD IMG XR PROCEDURES [...] obtain the completed interpretation. ? Workstation ID: [id number] Up-to-date CT equipment and radiation dose reduction techniques were employed. CTDIvol: 14.7 mGy. DLP: 672 mGy-cm. ??The following accession numbers are related to this dose report [id number]: [id number] Up-to-date CT equipment and radiation dose reduction techniques were employed. CTDIvol: 14.7 mGy. DLP: 672 mGy-cm. ??The following accession numbers are related to this dose report [id number]: [id number] Narrative 04/18/2024 10:15 PM EST COMPARISON: 03/09/2024. [...] described sacral insufficiency fractures. Resulting Agency Comment [id number] Procedure Note Harpreet Estrada MD - 04/18/2024 [...] possible to obtain thecompleted interpretation. Workstation ID: [id number] Up-to-date CT equipment and radiation dose reduction techniques wereemployed. CTDIvol: 14.7 mGy. DLP: 672 mGy-cm. The following accessionnumbers are related to this dose report [id number]: [id number] Up-to-date CT equipment and radiation dose reduction techniques wereemployed. CTDIvol: 14.7 mGy. DLP: 672 mGy-cm. The following accessionnumbers are related to this dose report [id number]: [id number] Fermin Hawkins MD IM CT PROCEDURES Final [...] obtain the completed interpretation. ? Workstation ID: [id number] Up-to-date CT equipment and radiation dose reduction techniques were employed. CTDIvol: 14.7 mGy. DLP: 672 mGy-cm. ??The following accession numbers are related to this dose report [id number]: [id number] Up-to-date CT equipment and radiation dose reduction techniques were employed. CTDIvol: 14.7 mGy. DLP: 672 mGy-cm. ??The following accession numbers are related to this dose report [id number]: [id number] Narrative 04/18/2024 10:15 PM EST COMPARISON: 03/09/2024. [...] described sacral insufficiency fractures. Resulting Agency Comment [id number] Procedure Note Harpreet Estrada MD - 04/18/2024 [...] possible to obtain thecompleted interpretation. Workstation ID: [id number] Up-to-date CT equipment and radiation dose reduction techniques wereemployed. CTDIvol: 14.7 mGy. DLP: 672 mGy-cm. The following accessionnumbers are related to this dose report [id number]: [id number] Up-to-date CT equipment and radiation dose reduction techniques wereemployed. CTDIvol: 14.7 mGy. DLP: 672 mGy-cm. The following accessionnumbers are related to this dose report [id number]: [id number] Fermin Hawkins MD IMG CT PROCEDURES Final Result * [place] Top, Urine (04/18/2024 6:43 PM EST) Pathologist [facility] Extra Tube Hold for add-ons. 04/18/2024 11:05 PM EST [facility] Comment:Auto resulted. Urine Urine specimen collection, clean catch / Unknown Non-Blood Collection / Unknown 04/18/2024 6:43 PM EST 04/18/2024 6:43 PM EST Fermin Hawkins MD LAB URINE ORDERABLES Final Resul t [facility] [address] [place] [address], * (ABNORMAL) Urinalysis W/Reflex to Microscopic & Culture (04/18/2024 6:43 PM EST) Color, Urine Yellow Colorless, Light Yellow, Yellow, Dark Yellow 04/18/2024 7:03 PM EST [facility] Clarity, Urine Slightly Cloudy(A) Clear 04/18/2024 7:03 PM EST [facility] Specific [place], Urine 1.025 1.005 - 1.030 04/18/2024 7:03 PM EST [facility] pH, Urine 5.0 4.6 - 8.0 04/18/2024 7:03 PM EST [facility] Protein, Urine Negative Negative 04/18/2024 7:03 PM EST [facility] Glucose, Urine Negative Negative 04/18/2024 7:03 PM EST [facility] Ketones, Urine Negative Negative 04/18/2024 7:03 PM EST [facility] Bilirubin, Urine Negative Negative 04/18/2024 7:03 PM EST [facility] Blood, Urine Negative Negative 04/18/2024 7:03 PM EST [facility] Nitrite, Urine Negative Negative 04/18/2024 7:03 PM EST [facility] Urobilinogen, Urine Positive(A) Normal 04/18/2024 7:03 PM EST [facility] Leukocyte Esterase, Urine 1+(A) Negative 04/18/2024 7:03 PM EST [facility] WBC, Urine 10(H) 0 - 2 /HPF 04/18/2024 7:03 PM EST [facility] RBC, Urine 2 0 - 2 /HPF 04/18/2024 7:03 PM EST [facility] Hyaline Casts, Urine 2 0 - 2 /LPF 04/18/2024 7:03 PM EST [facility] Squamous Epithelial Cells, Urine 4 /HPF 04/18/2024 7:03 PM EST [facility] Bacteria, Urine Rare(A) None /HPF /HPF 04/18/2024 7:03 PM EST [facility] Mucus, Urine Rare /LPF 04/18/2024 7:03 PM EST [facility] Urine Urine specimen collection, clean catch / Unknown Non-Blood Collection / Unknown 04/18/2024 6:43 PM EST 04/18/2024 6:43 PM EST us Fermin Hawkins MD LAB URINE ORDERABLES Final Resul t [facility] [address] [place] [address], * Urine Culture, Routine (04/18/2024 6:43 PM EST) Culture Mixed genital carmelita isolated. These superficial bacteria are not indicative of a urinary tract infection. No further organism identification is warranted on this specimen. 04/20/2024 1:03 AM EST [facility] Urine Urine specimen collection, clean catch / Unknown Non-Blood Collection / Unknown 04/18/2024 6:43 PM EST 04/18/2024 7:02 PM EST [facility] - 04/20/2024 1:03 AM EST [facility] Received Date: MICRO NUMBER: [id number] SPECIMEN QUALITY: Adequate SOURCE: URINE CLEAN CATCH STATUS: FINAL If clinically indicated, recollect clean-catch, mid-stream urine and transfer immediately to Urine Culture Transport Tube. Elvis Tran MD LAB MICROBIOLOGY - GENERAL ORDERABLES Final Result [facility] [address] [facility] [address], [place] [address], [place] [phone] [employer] [facility] [address] [facility] 3rd Floor, [place] [address], [place] [phone] * (ABNORMAL) CBC Auto Differential (04/18/2024 12:18 PM EST) WBC 9.0 3.8 - 10.8 10*3/uL 04/18/2024 12:40 PM EST [facility] RBC 4.45 3.80 - 5.10 10*6/uL 04/18/2024 12:40 PM EST [facility] Hemoglobin 12.7 11.7 - 15.5 g/dL 04/18/2024 12:40 PM EST [facility] Hematocrit 38.4 35.0 - 45.0 % 04/18/2024 12:40 PM EST [facility] MCV 86.3 80.0 - 100.0 fL 04/18/2024 12:40 PM EST [facility] MCH 28.5 27.0 - 33.0 pg 04/18/2024 12:40 PM EST [facility] MCHC 33.1 32.0 - 36.0 g/dL 04/18/2024 12:40 PM [facility] RDW 14.0 11.0 - 15.0 % 04/18/2024 12:40 PM [facility] Platelets 219 140 - 400 10*3/uL 04/18/2024 12:40 PM [facility] MPV 8.9 7.5 - 12.5 fL 04/18/2024 12:40 PM [facility] Neutrophil % 69.1 % 04/18/2024 12:40 PM [facility] Immature Grans % 0.4 0.0 - 0.9 % 04/18/2024 12:40 PM [facility] Lymphocyte % 18.8 % 04/18/2024 12:40 PM [facility] Monocyte % 8.3 % 04/18/2024 12:40 PM [facility] Eosinophil % 2.8 % 04/18/2024 12:40 PM [facility] Basophil % 0.6 % 04/18/2024 12:40 PM [facility] Neutrophil # 6.21 1.50 - 7.80 10*3/uL 04/18/2024 12:40 PM [facility] Immature Grans # [...] 0.02 - 0.50 10*3/uL 04/18/2024 12:40 PM [facility] Basophil # 0.10 0.00 - 0.20 10*3/uL 04/18/2024 12:40 PM EST [facility] nRBC % 0.0 /100 WBCs 04/18/2024 12:40 PM EST [facility] nRBC # <0.01 <0.01 10*3/uL 04/18/2024 12:40 PM EST [facility] Blood Structure of peripheral vein / Unknown Venipuncture / Unknown 04/18/2024 12:18 PM EST 04/18/2024 12:33 PM EST us Fermin Hawkins MD LAB BLOOD ORDERABLES Final Resul t [facility] [address] [place] [address], [place] from Last [address] [place] [address] [address] [facility] HS/FREE CARE Advance Directives * Full Code (Latest Code Status on File) Date Activated Date Inactivated Comments 04/19/2024 3:13 AM 04/19/2024 5:15 PM * Presumed Full Code Date Activated Date Inactivated Comments 04/19/2024 12:08 AM 04/19/2024 3:13 AM * Presumed Full Code Date Activated Date Inactivated Comments 07/18/2017 1:44 AM 07/18/2017 6:19 PM Care Teams Brick Veneer Maker Relationship Specialty Start Date End Date Vale Walls [address] [place] [phone] PCP - General Nurse Practitioner 03/08/24
--- OUTSIDE RECORDS SUMMARY | 2024-07-05 12:17 | XMS_ITS | Encounter Summary ---
Author Organization [facility] Address [address] [place] [address] Care Team Providers Care Broom Builder Name Role Phone Shreyas Orellana MD Primary Care Provider UnavailAshanti Smith MD Primary Care Provider Shreyas Orellana MD Primary Care Provider UnavailAshanti Smith MD Primary Care Provider [phone] Vale Walls NP Primary Care Provider Chastity Cortes MD Unavailable [phone] Vale Walls NP Unavailable Encounter Details Date Type Department Care Team (Late st Contact Info) Description 10/04/2016 Orders Only [facility] [address] [place] [phone] Shreyas Orellana MD Social History Tobacco Use [...] encounter Progress Notes * Shreyas Orellana - 10/05/2016 3:59 PM EDT Call pt [...] this encounter Procedures * Due to [employer] law, this organization might not be sharing negative HIV tests. Procedure Name Priority Date/Time Associated Diagnosis Comments BASIC METABOLIC PANEL WITH (GFR) Routine 10/04/2016 1:41 PM EDT Hypokalemia documented in this encounter Results * Due to [employer] law, this organization might not be [...] approximately 13% higher for people identified as -Filipino. GFR 63 > OR = 60 mL/min/1. [...] needs for GFR calculation. Resulting Agency Comment [id number] Shreyas Orellana MD LABORATORY Final Result [facility] [address] [place] [address] documented in this encounter Visit Diagnoses Diagnosis Hypokalemia Hypopotassemia documented in this encounter Additional Health Concerns Infection Onset Date Last Indicated Resolved Time COVID-19 Confirmed 07/11/2019 07/11/2019 0 8:12 PM EDT documented as of this encounter Care Teams Broom Builder Relationship Specialty Start Date End Date Shreyas Orellana MD PCP - General Internal Medicine 09/02/15 07/07/19 Ashanti Kumar MD PCP - General Family Medicine 07/08/19 07/09/19 Shreyas Orellana MD PCP - General Internal Medicine 07/10/19 09/06/19 Ashanti Kumar MD PCP - General Family Medicine 09/07/19 07/12/20 Vale Walls NP [address] [place] [id number] PCP - General Geriatrics 07/13/20 Chastity Cortes MD [address] [place] [id number] PCP - Backup PCP Geriatrics 10/23/20 03/30/21 Vale Walls NP [address] [place] [address] PCP - Backup PCP Geriatrics 10/06/21 documented as of this encounter
--- OUTSIDE RECORDS SUMMARY | 2024-07-05 12:17 | XMS_ITS | Encounter Summary ---
Author Organization [facility] Address [address] [place] [address] Care Team Providers Care Chemical Plant Operator Name Role Phone Alison Francis MD Primary Care Provider Shreyas Orellana MD Primary Care Provider UnavailAshanti Smith MD Primary Care Provider Shreyas Orellana MD Primary Care Provider UnavailAshanti Smith MD Primary Care Provider [place] FIRE INFORMATION OFFICER Primary Care Provider Chastity Cortes MD Unavailable [phone] [place] FIRE INFORMATION OFFICER Unavailable Encounter Details Date Type Department Care Team (Late st Contact Info) Description 07/13/2015 Orders Only July Internal Medicine [address] [place] [address] Alison Francis MD [address] [place] [address] Social History Tobacco Use Types Packs/Day Years [...] this encounter Procedures * Due to [place] [employer] law, this organization might not be sharing negative HIV tests. Procedure Name Priority Date/Time Associated Diagnosis Comments POTASSIUM, SERUM Routine 07/13/2015 10:5 1 AM EDT Low serum potassium level documented in this encounter Results * Due to [place] [employer] law, this organization might not be sharing negative HIV tests. * POTASSIUM, SERUM (07/13/2015 10:51 AM EDT) Potassium 4.6 3.5 - 5.3 mmol/L [facility] Comment:{POTASSIUM {[id number]) 07/13/2015 10:5 1 AM EDT 07/13/2015 5:29 PM EDT Narrative Resulting Agency Comment [id number] Alison Francis MD LAB SAME DAY RESULT Final Resul t Performing Organization Address City/State/[facility] Co de Phone Number [facility] [address] [place] [address] documented in this encounter Visit Diagnoses Diagnosis Low serum potassium level documented in this encounter Additional Health Concerns Infection Onset Date Last Indicated Resolved Time COVID-19 Confirmed 07/11/2019 07/11/2019 0 8:12 PM EDT documented as of this encounter Care Teams Chemical Plant Operator Relationship Specialty Start Date End Date Alison Francis MD PCP - General 03/20/10 09/01/15 Shreyas Orellana MD PCP - General Internal Medicine 09/02/15 07/07/19 Ashanti Kumar MD PCP - General Family Medicine 07/08/19 07/09/19 Shreyas Orellana MD PCP - General Internal Medicine 07/10/19 09/06/19 Ashanti Kumar MD PCP - General Family Medicine 09/07/19 07/12/20 [place] NP [address] [place] [address] PCP - General Geriatrics 07/13/20 Chastity Cortes MD [address] [place] [address] PCP - Backup PCP Geriatrics 10/23/20 03/30/21 [place] [facility] NP [address] [place] [address] PCP - Backup PCP Geriatrics 10/06/21 documented as of this encounter
--- OUTSIDE RECORDS SUMMARY | 2024-07-05 12:17 | XMS_ITS | Encounter Summary ---
Author Organization [facility] Address [address] [place] [address] Care Team Providers Care Small Business Representative Name Role Phone Alison Francis MD Primary Care Provider [phone] Alison Francis MD Primary Care Provider Shreyas Orellana MD Primary Care Provider UnavailAshanti Smith MD Primary Care Provider Shreyas Orellana MD Primary Care Provider UnavailAshanti Smith MD Primary Care Provider [place] WEATHERIZATION INSTALLER Primary Care Provider Chastity Cortes MD Unavailable [place] WEATHERIZATION INSTALLER Unavailable [phone] Encounter Details Date Type Department Care Team (Late st Contact Info) Description 02/15/2010 Orders Only May Internal Medicine [address] [place] [phone] Alison Francis MD [address] [place] [address] [phone] Social History Tobacco Use Types Packs/Day Years [...] this encounter Procedures * Due to [place] [employer] [place] law, this organization might not be sharing [...] this encounter Results * Due to [place] [employer] [place] law, this organization might not be sharing [...] MD LABORATORY Final Result Performing Organization Address [facility] Co de Phone Number [facility] [address] [place] [address] * T4, FREE THYROXINE (02/15/2010) FT4 1.07 0.8 - 1.8 NG/DL [facility] 02/15/2010 02/15/2010 6:0 8 PM EST us Alison Francis MD LABORATORY Final Result Performing Organization Address [facility] Co de Phone Number [facility] [address] [place] [address] * TSH (THYROTROPIN) (02/15/2010) TSH, THYROTROPIN 1.730 0.40 - 4.50 UIU/ML [facility] 02/15/2010 02/15/2010 6:0 8 PM EST us Alison Francis MD LABORATORY Final Result Performing Organization Address [facility] Co de Phone Number [facility] [address] [place] [address] * ASPARTATE AMINOTRANSFERASE (AST), SERUM (02/15/2010) AST (SGOT) 22 10 - 35 U/L [facility] 02/15/2010 02/15/2010 6:0 8 PM EST us Alison Francis MD LAB SAME DAY RESULT Final Resul t Performing Organization Address [facility] de Phone Number [facility] [address] [place] [address] * ALANINE AMINOTRANSFERASE (ALT), SERUM (02/15/2010) ALT (SGPT) 20 6 - 40 U/L [facility] 02/15/2010 02/15/2010 6:0 8 PM EST us Alison Francis MD LAB SAME DAY RESULT Final Resul t Performing Organization Address [facility] de Phone Number [facility] [address] [place] [address] * (ABNORMAL) LIPID PANEL + CARDIAC RISK WITH REFLEX TO LDL DIRECT (02/15/2010) Pathologist [facility] CHOLESTEROL, TOTAL 212(H) 125 - 200 MG/DL [...] MD LABORATORY Final Result Performing Organization Address [facility] Co de Phone Number [facility] [address] [place] [address] * (ABNORMAL) BASIC METABOLIC PANEL W/GLOMERULAR FILTRATION [...] MD LABORATORY Final Result Performing Organization Address City/State/[facility] Co de Phone Number [facility] [address] [place] [address] * CBC 5 PART DIFF (02/15/2010) WHITE [...] RESULT Final Resul t Performing Organization Address [facility] de Phone Number [facility] [address] [place] [address] * VITAMIN B12 (02/15/2010) [id number] 352 200 - 1100 PG/ML [facility] 02/15/2010 02/15/2010 6:0 8 PM EST us Alison Francis MD LABORATORY Final Result Performing Organization Address [facility] de Phone Number [facility] [address] [place] [address] documented in this encounter Visit Diagnoses Diagnosis [...] documented as of this encounter Care Teams Small Business Representative Relationship Specialty Start Date End Date [...] Medicine 09/07/19 07/12/20 [place] NP [address] [place] [address] PCP - General Geriatrics 07/13/20 Chastity Cortes MD [address] [place] [address] PCP - Backup PCP Geriatrics 10/23/20 03/30/21 [place] NP [address] [place] [address] PCP - Backup PCP Geriatrics 10/06/21 documented as of this encounter
--- OUTSIDE RECORDS SUMMARY | 2024-07-05 12:17 | XMS_ITS | Encounter Summary ---
Author Organization [facility] Address [address] [place] [address] Care Team Providers Care Accounting Administrative Assistant Name Role Phone Shreyas Orellana MD Primary Care Provider UnavailAshanti Smith MD Primary Care Provider [phone] Shreyas Orellana MD Primary Care Provider UnavailAshanti Smith MD Primary Care Provider [place] NP Primary Care Provider Chastity Cortes MD Unavailable [phone] [place] NP Unavailable [phone] Encounter Details Date Type Department Care Team (Late st Contact Info) Description 08/18/2016 Orders Only July Internal Medicine [address] [place] [phone] Shreyas Orellana MD Social History Tobacco Use [...] of this encounter Results * Due to [place] state law, this organization might not be sharing negative HIV tests. * (ABNORMAL) VITAMIN D, 25-HYDROXY, TOTAL, IMMUNOASSAY (08/30/2016 10:41 AM EDT) Vitamin D, 25-OH, Total 16(L) 30 - 100 ng/mL [facility] Comment: Vitamin D Status ? 25-OH Vitamin D: Deficiency: ?<20 ng/mL Insufficiency: ? 20 - 29 ng/mL Optimal: ? > or = 30 ng/mL For 25-OH Vitamin D testing on patients on D2-supplementation and patients for whom quantitation of D2 and D3 fractions is required, the QuestAssureD(TM) 25-OH VIT D, (D2,D3), LC/MS/MS is recommended: order code 39947 (patients >2yrs). For more information on this test, go to: http://education.[employer]/faq/JBL887 (This link is being provided for informational/educational purposes only.) 08/30/2016 10:4 1 AM EDT 08/30/2016 2:54 PM EDT Narrative Resulting Agency Comment [id number] Shreyas Orellana MD LABORATORY Final Result [facility] [address] [place] [address] * (ABNORMAL) BASIC METABOLIC PANEL WITH (GFR) (08/30/2016 10:41 AM EDT) Glucose 111(H) 65 - 99 mg/dL [facility] Comment: ? Fasting reference interval For someone [...] approximately 13% higher for people identified as -Grenadian. GFR 41(L) > OR = 60 mL/min/1. [...] needs for GFR calculation. Resulting Agency Comment [id number] Shreyas Orellana MD LABORATORY Final Result [facility] [address] [place] [address] * (ABNORMAL) LIPID PANEL WITH REFLEX TO [...] 2:54 PM EDT Narrative Resulting Agency Comment [id number] Shreyas Orellana MD LABORATORY Final Result [facility] [address] [place] [address] documented in this encounter Visit Diagnoses Diagnosis [...] documented as of this encounter Care Teams Accounting Administrative Assistant Relationship Specialty Start Date End Date Shreyas Orellana MD PCP - General Internal Medicine 09/02/15 07/07/19 Ashanti Kumar MD PCP - General Family Medicine 07/08/19 07/09/19 Shreyas Orellana MD PCP - General Internal Medicine 07/10/19 09/06/19 Ashanti Kumar MD PCP - General Family Medicine 09/07/19 07/12/20 [place] NP [address] [place] [address] PCP - General Geriatrics 07/13/20 Chastity Cortes MD NPI: [id number] [place] [address] PCP - Backup PCP Geriatrics 10/23/20 03/30/21 [place] [facility] NP [address] [place] [address] PCP - Backup PCP Geriatrics 10/06/21 documented as of this encounter
--- OUTSIDE RECORDS SUMMARY | 2024-07-05 12:17 | XMS_ITS | Encounter Summary ---
Author Organization [facility] Address [address] [place] [address] Care Team Providers Care Rice Field Worker Name Role Phone Shreyas Orellana MD Primary Care Provider UnavailAshanti Smith MD Primary Care Provider Shreyas Orellana MD Primary Care Provider UnavailAshanti Smith MD Primary Care Provider [place] NP Primary Care Provider Chastity Cortes MD Unavailable [phone] [place] NP Unavailable Encounter Details Date Type Department Care Team (Late st Contact Info) Description 09/08/2016 Orders Only July Internal Medicine [address] [place] [phone] Shreyas Orellana MD Social History Tobacco Use [...] 025 1:03 PM EDT) No Marsha Guzman JESSICA documented as of this encounter Results * Due to [place] state law, this organization might not be [...] approximately 13% higher for people identified as -Ivorian. GFR 63 > OR = 60 mL/min/1. [...] needs for GFR calculation. Resulting Agency Comment [id number] Shreyas Orellana MD LABORATORY Final Result [facility] [address] [place] [address] documented in this encounter Visit Diagnoses Diagnosis Hypokalemia Hypopotassemia Hypokalemia Hypopotassemia documented in this encounter Additional Health Concerns Infection Onset Date Last Indicated Resolved Time COVID-19 Confirmed 07/11/2019 07/11/2019 0 8:12 PM EDT documented as of this encounter Care Teams Rice Field Worker Relationship Specialty Start Date End Date Shreyas Orellana MD PCP - General Internal Medicine 09/02/15 07/07/19 Ashanti Kumar MD PCP - General Family Medicine 07/08/19 07/09/19 Shreyas Orellana MD PCP - General Internal Medicine 07/10/19 09/06/19 Ashanti Kumar MD PCP - General Family Medicine 09/07/19 07/12/20 [place] [facility] NP [address] [place] [address] PCP - General Geriatrics 07/13/20 Chastity Cortes MD [address] [place] [address] PCP - Backup PCP Geriatrics 10/23/20 03/30/21 [place] [facility] NP [address] [place] [address] PCP - Backup PCP Geriatrics 10/06/21 documented as of this encounter
--- OUTSIDE RECORDS SUMMARY | 2024-07-05 12:17 | XMS_ITS | Encounter Summary ---
Author Organization [facility] Address [address] [place] [address] Care Team Providers Care Technical Training Instructor Name Role Phone Alison Francis MD Primary Care Provider Alison Francis MD Primary Care Provider [phone] Shreyas Orellana MD Primary Care Provider UnavailAshanti Smith MD Primary Care Provider Shreyas Orellana MD Primary Care Provider UnavailAshanti Smith MD Primary Care Provider [place] EVENT LIGHTING SPECIALIST Primary Care Provider Chastity Cortes MD Unavailable [place] EVENT LIGHTING SPECIALIST Unavailable [phone] Encounter Details Date Type Department Care Team (Late st Contact Info) Description 09/12/2008 Orders Only May Internal Medicine [address] [place] [phone] Alison Francis MD [address] [place] [address] [phone] Social History Tobacco Use Types Packs/Day Years [...] documented as of this encounter Care Teams Technical Training Instructor Relationship Specialty Start Date End Date Alison [...] Medicine 09/07/19 07/12/20 [place] [facility] NP [address] [place] [address] PCP - General Geriatrics 07/13/20 Chastity Cortes MD [address] [place] [address] PCP - Backup PCP Geriatrics 10/23/20 03/30/21 [place] [facility] NP [address] [place] [address] PCP - Backup PCP Geriatrics 10/06/21 documented as of this encounter
--- OUTSIDE RECORDS SUMMARY | 2024-07-05 12:17 | XMS_ITS | Encounter Summary ---
Author Organization [facility] Address [address] [place] [address] Care Team Providers Care [place] Ordinary Name Role Phone Alison Francis MD Primary Care Provider [phone] Alison Francis MD Primary Care Provider [phone] Shreyas Orellana MD Primary Care Provider UnavailAshanti Smith MD Primary Care Provider [phone] Shreyas Orellana MD Primary Care Provider UnavailAshanti Smith MD Primary Care Provider [place] APPLIED ANTHROPOLOGIST Primary Care Provider Chastity Cortes MD Unavailable [place] APPLIED ANTHROPOLOGIST Unavailable Encounter Details Date Type Department Care Team (Late st Contact Info) Description 02/23/2009 Orders Only May Internal Medicine [address] [place] [phone] Alison Francis MD [address] [place] [address] [phone] Social History Tobacco Use Types Packs/Day Years [...] this encounter Procedures * Due to [place] state law, [...] Co de Phone Number [facility] [address] [place] [address] * TSH (THYROTROPIN) (02/23/2009) TSH, THYROTROPIN 1.45 0.40 - 4.50 UIU/ML [facility] 02/23/2009 02/23/2009 8:1 6 PM EST Alison Francis MD LABORATORY Final Result [facility] [address] [place] [address] * CBC 5 PART DIFF (02/23/2009) WHITE [...] RESULT Final Resul t [facility] [address] [place] [address] * BASIC METABOLIC PANEL W/GLOMERULAR FILTRATION RATE [...] Final Result Performing Organization Address [facility] Co de Phone Number [facility] [address] [place] [address] * (ABNORMAL) LIPID PANEL + CARDIAC RISK [...] Final Result Performing Organization Address [facility] Co de Phone Number [facility] [address] [place] [address] documented in this encounter Visit Diagnoses Diagnosis Myalgia and myositis Mylagia and myositis, unspecified Hyperlipidemia; LDL Goal < 130 Other and unspecified hyperlipidemia Hypertension Unspecified essential hypertension Back pain Backache, unspecified documented in this encounter Additional Health Concerns Infection Onset Date Last Indicated Resolved Time COVID-19 Confirmed 07/11/2019 07/11/2019 0 8:12 PM EDT documented as of this encounter Care Teams County Ordinary Relationship Specialty Start Date End Date Alison [...] Family Medicine 09/07/19 07/12/20 [place] NP [address] [place] [address] PCP - General Geriatrics 07/13/20 Chastity Cortes MD [address] [place] [address] PCP - Backup PCP Geriatrics 10/23/20 03/30/21 [place] [facility] NP [address] [place] [address] PCP - Backup PCP Geriatrics 10/06/21 documented as of this encounter
== END 2024-07-05 12:33 | disposition home or self-care (01) ==
LOC: HO.HNS 11:09
PROVIDERS: Visit Provider Physician Assistant
DX: M41.56 Other secondary scoliosis, lumbar region (principal)
CPT/HCPCS: 99024

== ENCOUNTER → 2024-07-05 11:09 | Outpatient (BNVA) | payer MEDICARE, MEDICAID, SELFPAY | PROVIDERS: Visit Provider Physician Assistant | DX: Z47.89 Encounter for other orthopedic aftercare (principal); Z98.890 Other specified postprocedural states | CPT/HCPCS: 99212 ==